=== PATIENT | female | born 1945 | race Caucasian/White ===

== ENCOUNTER 2016-03-28 17:09 | Inpatient (IN) | payer OTHER ==
[~2016-03-28] VITALS: Ht 160 cm; Wt 67.0 kg
[~2016-03-28 17:09] MED LIST: ALBUAER19 INH; ASPI81TA28 PO; ATOR-22 PO; CHOL100027 PO; CITA40TA4 PO; CLON0.5T3 PO; CLOP1TAB15 PO; DENO60SO SC; DICY10CA12 PO; FLUT50SP14 NAE; FOLI1TAB7 PO; FRRS300 PO; HYCUDL5 PO; HYOS1TAB SL; IPRASOL34 INH; LEVO1TAB33 PO; NTRGSL/4 UT; OXGN; OXYC-57 PO; OYST500T47 PO; PANC6000 PO; POLY335025 PO; POTA550T4 PO; PRED10TA PO; PRED20TA PO; RANI300T2 PO; SENN8.6T25 PO; SIME1CHW17 PO; TIOTCAP INH
[2016-03-28] MEDS ORDERED: METHYLPREDNISOLONE 125 MG VIAL IV STA (17:30)
[2016-03-28] MEDS ORDERED: ALBUT/IPRATROP 3MG/0.5MG NEB 3 ML VIAL INH ONE (17:30)
[2016-03-28 17:55] LABS: BASO % 0.2 %; BASO ABS # 0.01 K/uL (0-0.2); COMPLETE YES; HEMATOCRIT 35.1 % (37-47); IG% 0.5 %; LYMPH % 8.2 %; LYMPH ABS # 0.54 K/uL (1.2-3.4); MEAN CELL VOLUME 99.4 fL (80-100); MEAN CORPUSCULAR HEMOGLOBIN 33.4 pg (25-34); MEAN CORPUSCULAR HGB CONC 33.6 g/dl (32-36); MEAN PLATELET VOLUME 8.9 fL (7.4-10.4); MONO % 4.3 %; NEUT % 86.8 %; PLATELET COUNT 257 K/uL (130-400); RED BLOOD COUNT 3.53 M/uL (4.2-5.4); WHITE BLOOD COUNT 6.55 K/uL (4.8-10.8)
--- NOTE | 2016-03-28 18:15 | DIAGNOSTIC IMAGING REPORT ---
SINGLE VIEW CHEST CLINICAL HISTORY: Dyspnea. Blurry vision. FINDINGS: An\E\ AP, portable, upright chest radiograph is compared to study dated 12/31/2015. Correlation is made with chest CT dated 02/13/2011. The examination is degraded by portable technique and patient rotation. The heart is enlarged and there is atherosclerotic calcification of the thoracic aorta. The pulmonary vasculature is noncongested. There are calcified mediastinal and hilar lymph nodes. Emphysematous change and chronic interstitial thickening is similar to previous. There is mild focal eventration of the right hemidiaphragm. No focal airspace consolidation or pleural effusion is seen. There is no pneumothorax. The skeletal structures are osteopenic. There are healed left posterior rib fractures. IMPRESSION: Cardiomegaly, emphysema, and additional chronic changes as above. There is no acute cardiopulmonary abnormality. Electronically signed by: Flaquito Arana M.D. 03/28/2016 6:13 PM Dictated Date/Time: 03/28/2016 6:11 PM
[2016-03-28 18:17] LABS: BLOOD UREA NITROGEN 22 mg/dl (7-18); CALCIUM 7.9 mg/dl (8.5-10.1); CARBON DIOXIDE 26 mmol/L (21-32); CHLORIDE 106 mmol/L (98-107); CREATININE 0.96 mg/dl (0.60-1.20); GLUCOSE 106 mg/dl (70-99); POTASSIUM 4.2 mmol/L (3.5-5.1); SODIUM 141 mmol/L (136-145)
[2016-03-28] MEDS ORDERED: ALBU18002 INH (18:19)
[2016-03-28] MEDS ORDERED: UMEC1INH (18:19)
[2016-03-28] MEDS ORDERED: NYSS5 PO (18:19)
[2016-03-28] MEDS ORDERED: PRLSR20 PO (18:19)
[2016-03-28] MEDS ORDERED: HYDR5SYP11 PO (18:21)
[2016-03-28] MEDS ORDERED: IPRASOL4 INH (18:21)
[2016-03-28] MEDS ORDERED: TRMCR130WC TOP (18:21)
[2016-03-28] MEDS ORDERED: FLUT0.15 NAE (18:21)
[2016-03-28 18:22] LABS: CKMB/CK RATIO 2.6 (0-3.0)
[2016-03-28] MEDS ORDERED: TRAMADOL HCL 50 MG TAB PO PRN (19:00)
[2016-03-28] MEDS ORDERED: DOXYCYCLINE IV 100 MG in DEXTROSE 5% 100ML 100 ML IV STA (19:04)
[2016-03-28] MEDS ORDERED: ONDANSETRON INJ 2 MG/ML 2 ML VIAL IV PRN (20:15)
[2016-03-28] MEDS ORDERED: OYST500T47 PO (20:16)
[2016-03-28] MEDS ORDERED: OXGN (20:16)
--- NOTE | 2016-03-28 20:42 | History and Physical ---
History & Physical Date & Time of Service: Mar 28, 2016 at 20:22 Chief Complaint: Blurry Vision, Sob Primary Care Physician: Lena Quintanilla D.O. History of Present Illness Source: patient This is a 71 y/o female with PMHx of COPD on 3L O2 at home, Chronic Anemia, HTN , Dyslipidemia and other problems as outlined below who presents to the ED c/o persistent cough for over a week. Pt reports that over a week ago she developed a cough that is wet however she is having difficulty expectorating any sputum. Sxs are assoc with SOB and wheezing. Pt started COPD rescue kit (Levaquin and Prednisone taper) with no minimal relief. She has also been using her inhalers and nebulizers with only temporary relief. Pt currently lives at home alone with aides coming every day and her daughter lives next door. Pt denies fever/ chills, chest pain, abd pain, N/V, bowel or bladder issues, LE edema, calf pain , lightheadedness/dizziness. In the ED, vitals are stable. Pt is afebrile with no leukocytosis. HgB 11.8. CXR no consolidation. Pt received a DuoNeb treatment in the ED which gave her significant relief. She will be admitted for further evaluation and treatment. Past Medical/Surgical History Medical Problems: (1) Cerebrovascular disease Status: Chronic (2) Chronic obstructive lung disease Status: Chronic (3) Depression Status: Chronic (4) Essential hypertension Status: Chronic (5) Hyperlipidemia Status: Chronic (6) Iron deficiency anemia Status: Chronic (7) Osteoporosis Status: Chronic (8) Peripheral vascular disease Status: Chronic (9) Pseudocyst of pancreas Status: Chronic (10) Sleep apnea Status: Chronic (11) Tobacco user Status: Chronic (12) Vitamin D deficiency Status: Chronic Surgical Problems: (1) Status post appendectomy Status: Chronic (2) Status post cholecystectomy Status: Chronic (3) Status post ERCP Status: Chronic (4) Status post hernia repair Status: Chronic (5) Status post hysterectomy Status: Chronic Family History Diabetes mellitus FHx: gallbladder disease Heart disease Hypertension Kidney stones Lung disease Social History Smoking Status: Current Every Day Smoker (1.5 ppd x 62 years) Alcohol Use: none Drug Use: none Marital Status: Housing status: lives alone (daughter lives next door ) Occupational Status: retired Immunizations History of Influenza Vaccine: Yes Influenza Vaccine Date: Oct 27, 2010 History of Tetanus Vaccine?: Yes History of Pneumococcal: Yes Pneumococcal Date: Oct 27, 2010 History of Hepatitis B Vaccine: No Multi-Drug Resistant Organisms History of MDRO: No Allergies Coded Allergies: Ciprofloxacin (Verified Allergy, Mild, ITCHY, 03/28/16) Azithromycin (Verified Allergy, Unknown, unknown, 03/28/16) Influenza Vaccines (Unverified Allergy, Unknown, HIVES ON THE SITE, ) Nitrates, Organic (Verified Allergy, Unknown, UNSURE; BUT PATIENT TAKES NITROSTAT PER ADMIT MED REC., 03/28/16) Nitrofurantoin (Verified Allergy, Unknown, UNSURE, 03/28/16) Pneumococcal Polysaccharides (Verified Allergy, Unknown, unk, 03/28/16) Home Medications Scheduled Albuterol Sulfate (Proair Respiclick), 2 PUFFS INH QID Aspirin (Aspirin Ec), 81 MG PO QPM Atorvastatin (Lipitor), 20 MG PO QPM Cholecalciferol (Vitamin D 1000 Unit), 1,000 INTER.UNIT PO QPM Citalopram Hydrobromide (Citalopram Hydrobromide), 40 MG PO QPM Clopidogrel (Plavix), 75 MG PO QPM Denosumab (Prolia), 60 MG SC Q6 MONTHS Ferrous Sulfate (Ferrous Sulfate), 187.5 MG PO QPM Folic Acid (Folvite), 1 MG PO QPM Levofloxacin (Levaquin), 500 MG PO DAILY Nystatin (Nystatin), 5 ML PO QID Omeprazole (Prilosec), 20 MG PO DAILY Oxygen (Oxygen), 3 LITERS NA DAILY and HS Oyster Shell (Calcium), 500 MG PO BID Potassium Gluconate (Potassium Gluconate), 550 MG PO QPM Prednisone (Prednisone), 10 MG PO UD Scheduled PRN Clonazepam (Klonopin), 0.5 MG PO TID PRN for Anxiety Fluticasone Propionate (Nasal) (Flonase Allergy Relief), 2 SPRAY TAY DAILY PRN for PRN Hydrocodone W/ Homatropine (Hycodan 5/1.5MG 5 Ml), 5 ML PO Q4H PRN for PRN Hyoscyamine Sulfate (Hyoscyamine Sulfate Odt), 0.125 MG SL Q4 PRN for ABDOMINAL PAIN Ipratropium-Albuterol (Duoneb), 1 TREATMENT INH Q6 PRN for SOB/Wheezing Nitroglycerin (Nitrostat), 0.4 MG UT UD PRN for Chest Pain Miscellaneous Medications Umeclidinium [place] (Incruse Ellipta), Unknown Dose Review of Systems Constitutional: + fatigue, No chills, No fever, No sweats, No weakness Eyes: + worsening of vision (blurry vision ) ENT: No hearing loss Respiratory: + cough, + dyspnea at rest, + dyspnea on exertion, + shortness of breath, + sputum, + wheezing, No hemoptysis Cardiovascular: No chest pain, No claudication, No edema, No palpitations Abdomen: No GI bleeding, No constipation, No diarrhea, No nausea, No pain, No vomiting Musculoskeletal: No calf pain, No swelling Genitourinary - Female: No dysuria Neurologic: No weakness Psychiatric: No depression symptoms Endocrine: + fatigue Hematologic / Lymphatic: No abnormal bleeding/bruising Integumentary: No new/changing skin lesions Physical Exam Vital Signs Date Time Temp Pulse Resp B/P Pulse Ox O2 Delivery O2 Flow Rate FiO2 03/28/16 19:01 95 20 139/59 95 Nasal Cannula 3.0 03/28/16 17:22 95 Nasal Cannula 3.0 03/28/16 17:22 95 Nasal Cannula 3.0 03/28/16 17:20 75 03/28/16 17:19 37.2 77 20 171/82 88 Room Air General Appearance: WD/WN, no apparent distress, + pertinent finding (Pt is laying in bed with daughter at bedside ) Head: normocephalic, atraumatic Eyes: normal inspection ENT: hearing grossly normal Neck: supple Respiratory/Chest: chest non-tender, no respiratory distress, no accessory muscle use, + rhonchi, + wheezing Cardiovascular: regular rate, rhythm, no murmur Abdomen/GI: normal bowel sounds, non tender, soft Back: normal inspection Extremities/Musculoskelatal: normal inspection, no calf tenderness, + pedal edema (2+ bilat) Neurologic/Psych: alert, normal mood/affect, oriented x 3 Skin: normal color, warm/dry Diagnostics Laboratory Results Results Past 24 Hours Test 03/28/16 17:45 Range/Units White Blood Count 6.55 4.8-10.8 K/uL Red Blood Count 3.53 4.2-5.4 M/uL Hemoglobin 11.8 12.0-16.0 g/dL Hematocrit 35.1 37-47 % Mean Corpuscular Volume 99.4 80-100 fL Mean Corpuscular Hemoglobin 33.4 25-34 pg Mean Corpuscular Hemoglobin Concent 33.6 32-36 g/dl Platelet Count 257 130-400 K/uL Mean Platelet Volume 8.9 7.4-10.4 fL Neutrophils (%) (Auto) 86.8 % Lymphocytes (%) (Auto) 8.2 % Monocytes (%) (Auto) 4.3 % Eosinophils (%) (Auto) 0.0 % Basophils (%) (Auto) 0.2 % Neutrophils # (Auto) 5.69 1.4-6.5 K/uL Lymphocytes # (Auto) 0.54 1.2-3.4 K/uL Monocytes # (Auto) 0.28 0.11-0.59 K/uL Eosinophils # (Auto) 0.00 0-0.5 K/uL Basophils # (Auto) 0.01 0-0.2 K/uL RDW Standard Deviation 52.6 36.4-46.3 fL RDW Coefficient of Variation 14.5 11.5-14.5 % Immature Granulocyte % (Auto) 0.5 % Immature Granulocyte # (Auto) 0.03 0.00-0.02 K/uL Sodium Level 141 136-145 mmol/L Potassium Level 4.2 3.5-5.1 mmol/L Chloride Level 106 98-107 mmol/L Carbon Dioxide Level 26 21-32 mmol/L Anion Gap 9.0 3-11 mmol/L Blood Urea Nitrogen 22 7-18 mg/dl Creatinine 0.96 0.60-1.20 mg/dl Est Creatinine Clear Calc Drug Dose 49.2 ml/min Estimated GFR () 68.0 Estimated GFR (Non- 58.7 BUN/Creatinine Ratio 23.0 10-20 Random Glucose 106 70-99 mg/dl Calcium Level 7.9 8.5-10.1 mg/dl Total Creatine Kinase 53 26-192 U/L Creatine Kinase MB 1.4 0.5-3.6 ng/ml Creatine Kinase MB Ratio 2.6 0-3.0 Troponin I < 0.015 0-0.045 ng/ml Diagnostic Radiology CXR IMPRESSION: Cardiomegaly, emphysema, and additional chronic changes as above. There is no acute cardiopulmonary abnormality. EKG EKG: sinus rhythm at 77 bpm with PVCs and possible L atrial enlargement; when compared to EKG from 12/31/2015 PVCs are new and T wave abnormality is no longer present Impression Assessment and Plan COPD EXACERBATION pt presents with worsening SOB, cough and wheezing; h/o COPD on 3L O2 at home; failed outpt Levaquin and Pred taper -admit to med/surg -pt is afebrile with no leukocytosis; saturating well on 3L O2 -CXR +emphysema; no consolidation -start Solu-Medrol and duonebs -start Doxy -continue O2 supplementation -counseled pt regarding importance of smoking cessation; will provide NicoDerm patch -continue to monitor CHRONIC ANEMIA -HgB 11.8 (bl=9.5-11) -cont iron supplementation -pt currently denies active bleed HISTORY OF CVA/TIA -CVA 2001 -cont ASA/Plavix DEPRESSION/ANXIETY -stable -cont Celexa and Klonopin GERD -cont PPI HTN -stable -not on medication at home -monitor DYSLIPIDEMIA -cont statin DVT PROPHYLAXIS -subq Lovenox CODE STATUS -FULL CODE per discussion with patient. She wishes to be resuscitated in event of cardiopulmonary arrest but does not want prolonged life support. DISPO Pt seen in collaboration with Dr. Sheikh. Please see his addendum for further details. Thanks! ATTENDING ADDENDUM care coordinated with [facility] please refer to her notes for full details, I agree with her notes patient seen and examined, records reviewed by myself as well on exam, patient seen resting in bed, comfortable states breathing has improved since admission no other symptoms VS noted and reviewed oriented x 3 , not in distress, speaks in sentences with no effort nor accessory muscle use normal rate, regular rhythm, no murmurs (+) scattered expiratory wheeze bilaterally, moderate non distended, soft, nontender no bipedal edema, erythema, warmth no neuro deficits WBC 6.5 Crea 0.96 CXR: no infiltrates ASSESSMENT/PLAN> COPD EXACERBATION no improvement with Prednisone, Levaquin as outpatient still an active smoker - Solumedrol, Nebs, Doxy HISTORY OF CVA - continue Aspirin, Plavix other diagnoses and plan of care as per [facility]' notes Gerard Sheikh MD VTE Prophylaxis VTE Risk Assessment Done? Y/N: Yes Risk Level: Moderate
[2016-03-28 21:29] VITALS: BP 147/66; PULSE 84; TEMP 36.9; O2SAT 93; Ht 160 cm; Wt 67.0 kg
[2016-03-28 22:56] LABS: PROTHROMBIN TIME (PATIENT) 10.7 SECONDS (9.0-12.0)
[2016-03-28] MEDS: CALCIUM CARBONATE 1250MG TAB PO SCH (23:00)
[2016-03-28] MEDS: ATORVASTATIN 20 MG TAB PO SCH (23:00)
[2016-03-28] MEDS: CHOLECALCIFEROL 1000 INTER.UNIT TAB PO SCH (23:01)
[2016-03-28] MEDS: CLONAZEPAM 0.5 MG TAB PO PRN (23:02)
[2016-03-28] MEDS: FERROUS SULFATE 325 MG TAB PO SCH (23:02)
[2016-03-28] MEDS: ASPIRIN 81 MG ECTAB PO SCH (23:02)
[2016-03-28] MEDS: CLOPIDOGREL BISULFATE 75 MG TAB PO SCH (23:03)
[2016-03-28] MEDS: ACETAMINOPHEN 325 MG TAB PO PRN (23:03)
[2016-03-28] MEDS: CITALOPRAM 40 MG TAB PO SCH (23:03)
[2016-03-28 23:12] VITALS: PULSE 68; O2SAT 95
[2016-03-28] MEDS: ALBUT/IPRATROP 3MG/0.5MG NEB 3 ML VIAL INH SCH (23:12)
[2016-03-29] VITALS (13 sets, daily range): BP systolic 122–159; BP diastolic 49–76; PULSE 65–88; TEMP 36.7–36.9; O2SAT 91–98
--- NOTE | 2016-03-29 00:27 | EMERGENCY ROOM VISIT NOTE ---
History Report prepared by Juwan: Miguelito Herrera Under the Supervision of: Dr. Anderson Grey M.D. First contact with patient: 17:24 Chief Complaint: ILLNESS Stated Complaint: BLURRY VISION, SOB History of Present Illness The patient is a 71 year old female who presents to the Emergency Room with complaints of constant shortness of breath beginning one week prior to arrival. She currently rates her discomfort as a 6/10 in severity. The patient associates a cough, intermittent chest pain, dizziness, and intermittent blurry vision with today's symptoms. She states her vision began to become out of focus 2-3 days ago. The patient notes she is usually on 3L of oxygen at home. She states she has been on Prednisone and antibiotics from her PCP for the past week. The patient notes she is a smoker. She states she has inhalers and nebulizers at home. The patient denies recent syncopal episodes. 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 Review of Systems See HPI for pertinent positives & negatives. A total of 10 systems reviewed and were otherwise negative. Past Medical & Surgical Medical Problems: (1) Cerebrovascular disease (2) Chronic obstructive lung disease (3) Depression (4) Essential hypertension (5) Hyperlipidemia (6) Iron deficiency anemia (7) Osteoporosis (8) Peripheral vascular disease (9) Pseudocyst of pancreas (10) Sleep apnea (11) Tobacco user (12) Vitamin D deficiency Surgical Problems: (1) Status post appendectomy (2) Status post cholecystectomy (3) Status post ERCP (4) Status post hernia repair (5) Status post hysterectomy Family History Diabetes mellitus FHx: gallbladder disease Heart disease Hypertension Kidney stones Lung disease Social History Smoking Status: Current Every Day Smoker Alcohol Use: none Drug Use: none Marital Status: single, Housing Status: lives with family Occupation Status: retired Current/Historical Medications Scheduled Albuterol Sulfate (Proair Respiclick), 2 PUFFS INH QID Aspirin (Aspirin Ec), 81 MG PO QPM Atorvastatin (Lipitor), 20 MG PO QPM Cholecalciferol (Vitamin D 1000 Unit), 1,000 INTER.UNIT PO QPM Citalopram Hydrobromide (Citalopram Hydrobromide), 40 MG PO QPM Clopidogrel (Plavix), 75 MG PO QPM Denosumab (Prolia), 60 MG SC Q6 MONTHS Ferrous Sulfate (Ferrous Sulfate), 187.5 MG PO QPM Folic Acid (Folvite), 1 MG PO QPM Levofloxacin (Levaquin), 500 MG PO DAILY Nystatin (Nystatin), 5 ML PO QID Omeprazole (Prilosec), 20 MG PO DAILY Oxygen (Oxygen), 3 LITERS NA DAILY and HS Oyster Shell (Calcium), 500 MG PO BID Potassium Gluconate (Potassium Gluconate), 550 MG PO QPM Prednisone (Prednisone), 10 MG PO UD Scheduled PRN Clonazepam (Klonopin), 0.5 MG PO TID PRN for Anxiety Fluticasone Propionate (Nasal) (Flonase Allergy Relief), 2 SPRAY TAY DAILY PRN for PRN Hydrocodone W/ Homatropine (Hycodan 5/1.5MG 5 Ml), 5 ML PO Q4H PRN for PRN Hyoscyamine Sulfate (Hyoscyamine Sulfate Odt), 0.125 MG SL Q4 PRN for ABDOMINAL PAIN Ipratropium-Albuterol (Duoneb), 1 TREATMENT INH Q6 PRN for SOB/Wheezing Nitroglycerin (Nitrostat), 0.4 MG UT UD PRN for Chest Pain Miscellaneous Medications Umeclidinium [place] (Incruse Ellipta), Unknown Dose Allergies Coded Allergies: Ciprofloxacin (Verified Allergy, Mild, ITCHY, 03/28/16) Azithromycin (Verified Allergy, Unknown, unknown, 03/28/16) Influenza Vaccines (Unverified Allergy, Unknown, HIVES ON THE SITE, ) Nitrates, Organic (Verified Allergy, Unknown, UNSURE; BUT PATIENT TAKES NITROSTAT PER ADMIT MED REC., 03/28/16) Nitrofurantoin (Verified Allergy, Unknown, UNSURE, 03/28/16) Pneumococcal Polysaccharides (Verified Allergy, Unknown, unk, 03/28/16) Physical Exam Vital Signs Date Time Temp Pulse Resp B/P Pulse Ox O2 Delivery O2 Flow Rate FiO2 03/28/16 19:01 95 20 139/59 95 Nasal Cannula 3.0 03/28/16 17:22 95 Nasal Cannula 3.0 03/28/16 17:22 95 Nasal Cannula 3.0 03/28/16 17:20 75 03/28/16 17:19 37.2 77 20 171/82 88 Room Air Physical Exam GENERAL: Patient is chronically unwell appearing and smells heavily of tobacco smoke. HEENT: No acute trauma, normocephalic atraumatic, mucous membranes moist, no nasal congestion, no scleral icterus. NECK: No stridor, no adenopathy, no meningismus, trachea is midline. LUNGS: Dyspneic. Diffuse crackles and wheezing. Junky cough. HEART: Regular rate and rhythm. No murmurs, rubs, gallops appreciated. ABDOMEN: Soft, nontender, bowel sounds positive, no masses appreciated, no peritonitis. BACK: No midline tenderness, no CVA tenderness EXTREMITIES: Normal motion all extremities, no cyanosis, no edema. NEUROLOGIC: Alert and oriented, no acute motor or sensory deficits, no focal weakness, cranial nerves grossly intact. SKIN: No rash, no jaundice, no diaphoresis. Medical Decision & Procedures ER Provider Diagnostic Interpretation: X ray results are stated below per my interpretation and the radiologist's interpretation. SINGLE VIEW CHEST CLINICAL HISTORY: Dyspnea. Blurry vision. FINDINGS: An\E\ AP, portable, upright chest radiograph is compared to study dated 12/31/2015. Correlation is made with chest CT dated 02/13/2011. The examination is degraded by portable technique and patient rotation. The heart is enlarged and there is atherosclerotic calcification of the thoracic aorta. The pulmonary vasculature is noncongested. There are calcified mediastinal and hilar lymph nodes. Emphysematous change and chronic interstitial thickening is similar to previous. There is mild focal eventration of the right hemidiaphragm. No focal airspace consolidation or pleural effusion is seen. There is no pneumothorax. The skeletal structures are osteopenic. There are healed left posterior rib fractures. IMPRESSION: Cardiomegaly, emphysema, and additional chronic changes as above. There is no acute cardiopulmonary abnormality. Electronically signed by: Flaquito Arana M.D. 03/28/2016 6:13 PM Laboratory Results 03/28/16 17:45 Red Blood Count 3.53, Mean Corpuscular Volume 99.4, Mean Corpuscular Hemoglobin 33.4, Mean Corpuscular Hemoglobin Concent 33.6, Mean Platelet Volume 8.9, Neutrophils (%) (Auto) 86.8, Lymphocytes (%) (Auto) 8.2, Monocytes (%) (Auto) 4.3, Eosinophils (%) (Auto) 0.0, Basophils (%) (Auto) 0.2, Neutrophils # (Auto) 5.69, Lymphocytes # (Auto) 0.54, Monocytes # (Auto) 0.28, Eosinophils # (Auto) 0.00, Basophils # (Auto) 0.01 03/28/16 17:45 Test 03/28/16 17:45 White Blood Count 6.55 K/uL (4.8-10.8) Red Blood Count 3.53 M/uL (4.2-5.4) Hemoglobin 11.8 g/dL (12.0-16.0) Hematocrit 35.1 % (37-47) Mean Corpuscular Volume 99.4 fL (80-100) Mean Corpuscular Hemoglobin 33.4 pg (25-34) Mean Corpuscular Hemoglobin Concent 33.6 g/dl (32-36) Platelet Count 257 K/uL (130-400) Mean Platelet Volume 8.9 fL (7.4-10.4) Neutrophils (%) (Auto) 86.8 % Lymphocytes (%) (Auto) 8.2 % Monocytes (%) (Auto) 4.3 % Eosinophils (%) (Auto) 0.0 % Basophils (%) (Auto) 0.2 % Neutrophils # (Auto) 5.69 K/uL (1.4-6.5) Lymphocytes # (Auto) 0.54 K/uL (1.2-3.4) Monocytes # (Auto) 0.28 K/uL (0.11-0.59) Eosinophils # (Auto) 0.00 K/uL (0-0.5) Basophils # (Auto) 0.01 K/uL (0-0.2) RDW Standard Deviation 52.6 fL (36.4-46.3) RDW Coefficient of Variation 14.5 % (11.5-14.5) Immature Granulocyte % (Auto) 0.5 % Immature Granulocyte # (Auto) 0.03 K/uL (0.00-0.02) Prothrombin Time 10.7 SECONDS (9.0-12.0) Prothromb Time International Ratio 1.0 (0.9-1.1) Anion Gap 9.0 mmol/L (3-11) Est Creatinine Clear Calc Drug Dose 49.2 ml/min Estimated GFR () 68.0 Estimated GFR (Non- 58.7 BUN/Creatinine Ratio 23.0 (10-20) Calcium Level 7.9 mg/dl (8.5-10.1) Total Creatine Kinase 53 U/L (26-192) Creatine Kinase MB 1.4 ng/ml (0.5-3.6) Creatine Kinase MB Ratio 2.6 (0-3.0) Troponin I < 0.015 ng/ml (0-0.045) Laboratory results as reviewed by me. Medications Administered Medications (Trade) Dose Ordered Sig/[place] Route Start Time Stop Time Status Last Admin Dose Admin Methylprednisolone Sodium Succinate 80 mg 80 mg NOW STAT IV 03/28/16 17:30 03/28/16 17:32 DC 03/28/16 17:30 80 MG Doxycycline Hyclate/Dextrose (Vibramycin IV/ D5 100ml) 110 ml @ 50 mls/hr NOW STAT IV 03/28/16 19:04 03/28/16 21:15 DC 03/28/16 19:16 50 MLS/HR ECG Indication: SOB/dyspnea Rate (beats per minute): 77 Rhythm: sinus rhythm Findings: no acute ischemic change, no ectopy ED Course 1725: The patient was evaluated in room B12B. A complete history and physical exam was performed. 1730: Ordered Solu-Medrol IV 80 mg IV, Duoneb 12 ml INH. 1845: I spoke to Rehana Issa (Hospitalist) about the patient's case , and he will follow the patient for further evaluation. Medical Decision Differential: Infectious, Reactive Airway Disease, Pneumonia, Pneumothorax, COPD , CHF, ACS, Pulmonary Embolism, MSK, GI, Dissection, amongst other etiologies entertained. 71 yr old female with bronchitis over the last week which has failed outpatient abx and steroids. She is mildly hypoxic on her standard O2 with very poor lung sounds. She is otherwise in no significant distress. Suspect the dizziness she had earlier was hypoxia/illness related and given no headache no neuro deficits and no current symptoms will hold on any current head imaging. She otherwise labs look ok without evidence of ischemia. She has long history of COPD and continues to smoke thus I feel that PE is unlikely and that CT would not be necessary. Will start on empiric abx due to COPD flare in heavy smoker and use doxy given allergies though no evidence of PNA nor acute bacterial infection. Consults Time Called: 1831 Consulting Physician: Rehana Issa (Hospitalist) Returned Call: [phone] I spoke to Rehana Issa (Hospitalist) about the patient's case, and he will follow the patient for further evaluation. Impression Primary Impression: COPD with acute bronchitis Additional Impression: Failure of outpatient treatment Scribe Attestation The scribe's documentation has been prepared under my direction and personally reviewed by me in its entirety. I confirm that the note above accurately reflects all work, treatment, procedures, and medical decision making performed by me. Departure Information Dispostion Being Evaluated By Hospitalist (Rehana Issa (Hospitalist) ) Referrals Lena Quintanilla D.O. (PCP) Problem Qualifiers
[2016-03-29] MEDS: METHYLPREDNISOLONE IV 60 MG in SYRINGE 0 ML IV SCH ×5 (00:41→23:17)
[2016-03-29] MEDS: ALBUT/IPRATROP 3MG/0.5MG NEB 3 ML VIAL INH SCH ×7 (03:17→23:12)
[2016-03-29 07:11] LABS: HEMATOCRIT 36.2 % (37-47); MEAN CELL VOLUME 98.6 fL (80-100); MEAN CORPUSCULAR HEMOGLOBIN 32.2 pg (25-34); MEAN CORPUSCULAR HGB CONC 32.6 g/dl (32-36); MEAN PLATELET VOLUME 9.4 fL (7.4-10.4); PLATELET COUNT 292 K/uL (130-400); RED BLOOD COUNT 3.67 M/uL (4.2-5.4); WHITE BLOOD COUNT 10.72 K/uL (4.8-10.8)
--- NOTE | 2016-03-29 07:18 | Clinical Documentation Query ---
JUAN ANTONIO Myers : CLINICAL DOCUMENTATION QUERY Patient is a 71 year old female admitted for COPD exacerbation. Documentation supports the chronic continuous use of 3 L/min of supplemental oxygen in your patient. Risk factors include age, COPD, smoking history. Please clarify as clinically appropriate as this directly impacts DRG assignment. Thank you. In your clinical opinion is this patient being managed for: ( X ) Chronic hypoxic respiratory failure ( ) Other explanation of clinical findings (Please Explain) ( ) Unable to determine (Please Define) ( ) Need to Discuss ( ) Not Agree The medical record reflects the following clinical findings, treatment, and risk factors. Clinical Indicators: As above Treatment: Provision of ongoing supplemental oxygen. Risk Factors: Age, smoking, COPD Please clarify and document your clinical opinion in the progress notes and discharge summary. Terms such as "probable", "suspected", "likely", "questionable", "possible", or "still to be ruled out" are acceptable. IF IN AGREEMENT, YOU MUST DOCUMENT ABOVE DIAGNOSTIC STATEMENT IN DAILY PROGRESS NOTES AND DISCHARGE SUMMARY. This document is not part of the patient's record. Thank You, Augustus Raza, RN [phone]
[2016-03-29 07:54] LABS: CREATININE 0.94 mg/dl (0.60-1.20); POTASSIUM 4.2 mmol/L (3.5-5.1)
[2016-03-29] MEDS: DOXYCYCLINE IV 100 MG in DEXTROSE 5% 100ML 100 ML IV SCH ×2 (08:27→20:03)
[2016-03-29] MEDS: PANTOprazole SOD 40 MG TAB PO SCH (08:35)
[2016-03-29] MEDS: CALCIUM CARBONATE 1250MG TAB PO SCH ×2 (08:35→21:00)
[2016-03-29] MEDS: NICOTINE 21 MG/24 HR TDSY TD SCH (09:35)
[2016-03-29] MEDS: ENOXAPARIN 40 MG/0.4 ML SYR SQ SCH (09:35)
[2016-03-29] MEDS: FLUTICASONE PROPIONATE NA SPR 16 GM BTL NAE PRN (12:23)
[2016-03-29] MEDS: CLONAZEPAM 0.5 MG TAB PO PRN ×2 (15:34→23:17)
--- NOTE | 2016-03-29 17:29 | Progress Note ---
Internal Med Progress Note Date of Service: Mar 29, 2016. Provider Documentation: SUBJECTIVE: Patient is seen and examined at bedside. Patient states her Cough and SOB is improving. Denies any chest pain, nausea, palpitations. OBJECTIVE: Vital Signs-as noted below Physical Exam: General Appearance:Fragile, chronic aill appearing, no apparent distress Head: normocephalic, Atraumatic Eyes: normal inspection, EOMI, PERRLA Neck: supple, Trachea midline Respiratory/Chest: Decreased breath sounds, b/l expiratory wheezes. No accessory muscle use Cardiovascular: S1, S2, No murmur Abdomen/GI:Soft, Non tender, Bowel sounds present Extremities/Musculoskelatal:normal inspection, Trace pedal edema Neurologic/Psych:AAOX3, grossly no focal neurological deficits Skin: normal color, warm Lab data as noted below. ASSESSMENT & PLAN: Patient is a 71 yr old female with PMHx of COPD on 3L O2 at home, Chronic Anemia , HTN, Dyslipidemia presents with persistent cough for over a week. Also had associated SOB and wheezing. Pt tried COPD rescue kit (Levaquin and Prednisone taper) with no relief. CXR showed no consolidation. ACUTE ON CHRONIC COPD EXACERBATION Currently saturating well on 3L O2- her baseline CXR: no consolidation Continue glucocorticoids and bronchodilators Will start tapering steroids tomorrow Continue Doxycycline continue O2 support Patient is a current smoker: Counselled to quit smoking Follow up sputum cultures CHRONIC ANEMIA HgB Stable continue iron supplementation HISTORY OF CVA/TIA H/O CVA 2001 continue ASA/Plavix DEPRESSION/ANXIETY stable continue Celexa and Klonopin GERD continue PPI HTN stable Continue to monitor DYSLIPIDEMIA continue statin DVT PROPHYLAXIS SQ Lovenox CODE STATUS FULL CODE Vital Signs: Date Time Temp Pulse Resp B/P Pulse Ox O2 Delivery O2 Flow Rate FiO2 03/29/16 16:00 91 Nasal Cannula 3.0 03/29/16 15:46 36.7 88 19 122/61 91 Nasal Cannula 2.0 03/29/16 14:57 88 18 93 Nasal Cannula 3.0 03/29/16 13:39 73 18 98 Nasal Cannula 3.0 03/29/16 08:07 94 Nasal Cannula 2.0 03/29/16 07:50 36.7 85 16 130/76 94 Nasal Cannula 2.0 03/29/16 07:41 Nasal Cannula 3.0 03/29/16 06:55 82 18 95 Nasal Cannula 3.0 03/29/16 03:17 65 18 94 Nasal Cannula 3.0 03/29/16 00:04 36.8 76 18 123/49 95 Nasal Cannula 3.0 03/29/16 00:00 95 Nasal Cannula 3.0 03/28/16 23:12 68 18 95 3.0 03/28/16 21:29 36.9 84 20 147/66 93 Nasal Cannula 3.0 03/28/16 20:36 92 17 134/63 92 Nasal Cannula 3.0 03/28/16 19:01 95 20 139/59 95 Nasal Cannula 3.0 03/28/16 17:22 95 Nasal Cannula 3.0 03/28/16 17:22 95 Nasal Cannula 3.0 03/28/16 17:20 75 03/28/16 17:19 37.2 77 20 171/82 88 Room Air Lab Results: Results Past 24 Hours Test 03/28/16 17:45 03/29/16 06:39 Range/Units White Blood Count 6.55 10.72 4.8-10.8 K/uL Red Blood Count 3.53 3.67 4.2-5.4 M/uL Hemoglobin 11.8 11.8 12.0-16.0 g/dL Hematocrit 35.1 36.2 37-47 % Mean Corpuscular Volume 99.4 98.6 80-100 fL Mean Corpuscular Hemoglobin 33.4 32.2 25-34 pg Mean Corpuscular Hemoglobin Concent 33.6 32.6 32-36 g/dl Platelet Count 257 292 130-400 K/uL Mean Platelet Volume 8.9 9.4 7.4-10.4 fL Neutrophils (%) (Auto) 86.8 % Lymphocytes (%) (Auto) 8.2 % Monocytes (%) (Auto) 4.3 % Eosinophils (%) (Auto) 0.0 % Basophils (%) (Auto) 0.2 % Neutrophils # (Auto) 5.69 1.4-6.5 K/uL Lymphocytes # (Auto) 0.54 1.2-3.4 K/uL Monocytes # (Auto) 0.28 0.11-0.59 K/uL Eosinophils # (Auto) 0.00 0-0.5 K/uL Basophils # (Auto) 0.01 0-0.2 K/uL RDW Standard Deviation 52.6 53.0 36.4-46.3 fL RDW Coefficient of Variation 14.5 14.7 11.5-14.5 % Immature Granulocyte % (Auto) 0.5 % Immature Granulocyte # (Auto) 0.03 0.00-0.02 K/uL Prothrombin Time 10.7 9.0-12.0 SECONDS Prothromb Time International Ratio 1.0 0.9-1.1 Sodium Level 141 142 136-145 mmol/L Potassium Level 4.2 4.2 3.5-5.1 mmol/L Chloride Level 106 106 98-107 mmol/L Carbon Dioxide Level 26 26 21-32 mmol/L Anion Gap 9.0 10.0 3-11 mmol/L Blood Urea Nitrogen 22 24 7-18 mg/dl Creatinine 0.96 0.94 0.60-1.20 mg/dl Est Creatinine Clear Calc Drug Dose 49.2 49.0 ml/min Estimated GFR () 68.0 69.8 Estimated GFR (Non- 58.7 60.2 BUN/Creatinine Ratio 23.0 25.0 10-20 Random Glucose 106 119 70-99 mg/dl Calcium Level 7.9 8.0 8.5-10.1 mg/dl Total Creatine Kinase 53 26-192 U/L Creatine Kinase MB 1.4 0.5-3.6 ng/ml Creatine Kinase MB Ratio 2.6 0-3.0 Troponin I < 0.015 0-0.045 ng/ml Microbiology Results 03/29/16 Gram Stain, Received Pending 03/29/16 Sputum Culture, Received Pending
[2016-03-29] MEDS: ACETAMINOPHEN 325 MG TAB PO PRN (17:48)
[2016-03-29] MEDS: FERROUS SULFATE 325 MG TAB PO SCH (21:00)
[2016-03-29] MEDS: SODIUM CHLORIDE 0.65% NA SOLN 45 ML (OCEAN) PRN (21:05)
[2016-03-29] MEDS: ASPIRIN 81 MG ECTAB PO SCH (21:10)
[2016-03-29] MEDS: CITALOPRAM 40 MG TAB PO SCH (21:10)
[2016-03-29] MEDS: ATORVASTATIN 20 MG TAB PO SCH (21:12)
[2016-03-29] MEDS: CHOLECALCIFEROL 1000 INTER.UNIT TAB PO SCH (21:12)
[2016-03-29] MEDS: CLOPIDOGREL BISULFATE 75 MG TAB PO SCH (21:12)
[2016-03-30] VITALS (12 sets, daily range): BP systolic 75–164; BP diastolic 42–76; PULSE 67–89; TEMP 36.4–36.9; O2SAT 92–96
[2016-03-30] MEDS: ALBUT/IPRATROP 3MG/0.5MG NEB 3 ML VIAL INH SCH ×6 (03:38→23:26)
[2016-03-30] MEDS: ACETAMINOPHEN 325 MG TAB PO PRN (06:06)
[2016-03-30] MEDS: SODIUM CHLORIDE 0.65% NA SOLN 45 ML (OCEAN) PRN (06:06)
[2016-03-30] MEDS: METHYLPREDNISOLONE IV 60 MG in SYRINGE 0 ML IV SCH ×2 (06:06→11:19)
[2016-03-30] MEDS: CLONAZEPAM 0.5 MG TAB PO PRN ×2 (06:08→20:51)
[2016-03-30] MEDS: DOXYCYCLINE IV 100 MG in DEXTROSE 5% 100ML 100 ML IV SCH ×2 (07:53→20:36)
[2016-03-30] MEDS: PANTOprazole SOD 40 MG TAB PO SCH (07:59)
[2016-03-30] MEDS: CALCIUM CARBONATE 1250MG TAB PO SCH ×2 (08:00→20:37)
[2016-03-30] MEDS: ENOXAPARIN 40 MG/0.4 ML SYR SQ SCH (08:00)
[2016-03-30] MEDS: NICOTINE 21 MG/24 HR TDSY TD SCH (08:00)
[2016-03-30] MEDS: FLUTICASONE PROPIONATE NA SPR 16 GM BTL NAE PRN (08:12)
[2016-03-30 08:35] LABS: BUN/CREATININE RATIO 32.6 (10-20); CALCIUM 7.9 mg/dl (8.5-10.1); CREATININE 0.87 mg/dl (0.60-1.20); POTASSIUM 3.7 mmol/L (3.5-5.1)
[2016-03-30] MEDS: FAMOTIDINE IV INJ 20 MG in DEXTROSE 5% 100ML 100 ML IV SCH (11:19)
--- NOTE | 2016-03-30 12:53 | Progress Note ---
Internal Med Progress Note Date of Service: Mar 30, 2016. Provider Documentation: SUBJECTIVE: Patient is seen and examined at bedside. States being SOB this morning and also have acid reflux like symptoms. Cough is improving. Denies any chest pain, nausea, palpitations. OBJECTIVE: Vital Signs-as noted below Physical Exam: General Appearance:Fragile, chronic aill appearing, no apparent distress Head: normocephalic, Atraumatic Eyes: normal inspection, EOMI, PERRLA Neck: supple, Trachea midline Respiratory/Chest: Decreased breath sounds, b/l mild expiratory wheezes. No accessory muscle use Cardiovascular: S1, S2, No murmur Abdomen/GI:Soft, Non tender, Bowel sounds present Extremities/Musculoskelatal:normal inspection, Trace pedal edema Neurologic/Psych:AAOX3, grossly no focal neurological deficits Skin: normal color, warm Lab data as noted below. ASSESSMENT & PLAN: Patient is a 71 yr old female with PMHx of COPD on 3L O2 at home, Chronic Anemia , HTN, Dyslipidemia presents with persistent cough for over a week. Also had associated SOB and wheezing. Pt tried COPD rescue kit (Levaquin and Prednisone taper) with no relief. CXR showed no consolidation. ACUTE ON CHRONIC COPD EXACERBATION Currently saturating well on 3L O2- her baseline CXR: no consolidation Continue glucocorticoids and bronchodilators Continue to taper steroids Continue Doxycycline continue O2 support Patient is a current smoker: Counselled to quit smoking Follow up sputum cultures CHRONIC ANEMIA HgB Stable continue iron supplementation HISTORY OF CVA/TIA H/O CVA 2001 continue ASA/Plavix DEPRESSION/ANXIETY stable continue Celexa and Klonopin GERD continue PPI HTN stable Continue to monitor DYSLIPIDEMIA continue statin DVT PROPHYLAXIS SQ Lovenox CODE STATUS FULL CODE DISPOSITION: Plan to DC home in next 48 hours if stable Vital Signs: Date Time Temp Pulse Resp B/P Pulse Ox O2 Delivery O2 Flow Rate FiO2 03/30/16 11:15 67 18 93 Room Air 03/30/16 08:00 95 Nasal Cannula 3.0 03/30/16 07:06 36.6 85 20 93/52 95 Nasal Cannula 3.0 03/30/16 06:13 86 18 96 Nasal Cannula 3.0 03/30/16 00:00 Nasal Cannula 3.0 03/29/16 23:25 36.9 86 19 159/71 93 Nasal Cannula 3.0 03/29/16 23:12 88 18 95 Nasal Cannula 3.0 03/29/16 19:26 65 18 96 Nasal Cannula 3.0 03/29/16 16:00 91 Nasal Cannula 3.0 03/29/16 15:46 36.7 88 19 122/61 91 Nasal Cannula 2.0 03/29/16 14:57 88 18 93 Nasal Cannula 3.0 03/29/16 13:39 73 18 98 Nasal Cannula 3.0 Lab Results: Results Past 24 Hours Test 03/30/16 07:31 Range/Units Sodium Level 143 136-145 mmol/L Potassium Level 3.7 3.5-5.1 mmol/L Chloride Level 108 98-107 mmol/L Carbon Dioxide Level 25 21-32 mmol/L Anion Gap 10.0 3-11 mmol/L Blood Urea Nitrogen 28 7-18 mg/dl Creatinine 0.87 0.60-1.20 mg/dl Est Creatinine Clear Calc Drug Dose 52.9 ml/min Estimated GFR () 76.6 Estimated GFR (Non- 66.1 BUN/Creatinine Ratio 32.6 10-20 Random Glucose 125 70-99 mg/dl Calcium Level 7.9 8.5-10.1 mg/dl Microbiology Results 03/29/16 Gram Stain - Final, Resulted 03/29/16 Sputum Culture, Resulted Pending
[2016-03-30] MEDS: METHYLPREDNISOLONE IV 40 MG in SYRINGE 0 ML IV SCH (20:22)
[2016-03-30] MEDS: CHOLECALCIFEROL 1000 INTER.UNIT TAB PO SCH (20:23)
[2016-03-30] MEDS: CITALOPRAM 40 MG TAB PO SCH (20:38)
[2016-03-30] MEDS: ASPIRIN 81 MG ECTAB PO SCH (20:38)
[2016-03-30] MEDS: CLOPIDOGREL BISULFATE 75 MG TAB PO SCH (20:39)
[2016-03-30] MEDS: FERROUS SULFATE 325 MG TAB PO SCH (20:39)
[2016-03-30] MEDS: ATORVASTATIN 20 MG TAB PO SCH (20:40)
[2016-03-31] VITALS (11 sets, daily range): BP systolic 98–143; BP diastolic 67–76; PULSE 75–84; TEMP 36.6; O2SAT 95–98
[2016-03-31] MEDS: FAMOTIDINE IV INJ 20 MG in DEXTROSE 5% 100ML 100 ML IV SCH ×2 (00:21→12:07)
[2016-03-31] MEDS: ALBUT/IPRATROP 3MG/0.5MG NEB 3 ML VIAL INH SCH ×6 (03:31→23:06)
[2016-03-31 07:04] LABS: BUN/CREATININE RATIO 42.5 (10-20); CALCIUM 7.8 mg/dl (8.5-10.1); CREATININE 0.84 mg/dl (0.60-1.20); POTASSIUM 3.9 mmol/L (3.5-5.1)
[2016-03-31] MEDS: DOXYCYCLINE IV 100 MG in DEXTROSE 5% 100ML 100 ML IV SCH ×2 (08:02→20:21)
[2016-03-31] MEDS: NICOTINE 21 MG/24 HR TDSY TD SCH (08:04)
[2016-03-31] MEDS: ENOXAPARIN 40 MG/0.4 ML SYR SQ SCH (08:47)
[2016-03-31] MEDS: CALCIUM CARBONATE 1250MG TAB PO SCH ×4 (08:48→21:25)
[2016-03-31] MEDS: METHYLPREDNISOLONE IV 40 MG in SYRINGE 0 ML IV SCH (08:48)
[2016-03-31] MEDS: PANTOprazole SOD 40 MG TAB PO SCH (08:48)
[2016-03-31] MEDS: FLUTICASONE PROPIONATE NA SPR 16 GM BTL NAE PRN (08:51)
--- NOTE | 2016-03-31 10:50 | Progress Note ---
Internal Med Progress Note Date of Service: Mar 31, 2016. Provider Documentation: SUBJECTIVE: Patient is seen and examined at bedside. States having SOB on exertion. Cough improving. Denies any chest pain, nausea, abd pain, palpitations. OBJECTIVE: Vital Signs-as noted below Physical Exam: General Appearance:Fragile, chronic aill appearing, no apparent distress Head: normocephalic, Atraumatic Eyes: normal inspection, EOMI, PERRLA Neck: supple, Trachea midline Respiratory/Chest: Decreased breath sounds, b/l mild expiratory wheezes. No accessory muscle use Cardiovascular: S1, S2, No murmur Abdomen/GI:Soft, Non tender, Bowel sounds present Extremities/Musculoskelatal:normal inspection, Trace pedal edema Neurologic/Psych:AAOX3, grossly no focal neurological deficits Skin: normal color, warm Lab data as noted below. ASSESSMENT & PLAN: Patient is a 71 yr old female with PMHx of COPD on 3L O2 at home, Chronic Anemia , HTN, Dyslipidemia presents with persistent cough for over a week. Also had associated SOB and wheezing. Pt tried COPD rescue kit (Levaquin and Prednisone taper) with no relief. CXR showed no consolidation. ACUTE ON CHRONIC COPD EXACERBATION Currently saturating well on 3L O2- her baseline CXR: no consolidation Continue glucocorticoids and bronchodilators Continue to taper steroids Continue Doxycycline continue O2 support-Taper off oxygen to keep sats above 92% Patient is a current smoker: Counselled to quit smoking Sputum cultures: moderate normal gabby, FU final cultures CHRONIC ANEMIA HgB Stable continue iron supplementation HISTORY OF CVA/TIA H/O CVA 2001 continue ASA/Plavix DEPRESSION/ANXIETY stable continue Celexa and Klonopin GERD continue PPI HTN stable Continue to monitor DYSLIPIDEMIA continue statin DVT PROPHYLAXIS SQ Lovenox CODE STATUS FULL CODE DISPOSITION: Plan to DC home tomorrow if stable Vital Signs: Date Time Temp Pulse Resp B/P Pulse Ox O2 Delivery O2 Flow Rate FiO2 03/31/16 09:56 36.6 83 16 96 3.0 03/31/16 08:07 96 Nasal Cannula 3.0 03/31/16 07:52 36.6 83 16 128/76 96 Nasal Cannula 3.0 03/31/16 07:31 79 18 97 Nasal Cannula 3.0 03/31/16 07:28 36.6 81 20 98/67 97 3.0 03/31/16 03:31 84 18 95 Nasal Cannula 3.0 03/31/16 00:05 Room Air 03/30/16 23:58 36.4 77 18 131/67 94 Nasal Cannula 3.0 85/51 03/30/16 23:26 76 18 96 Nasal Cannula 3.0 03/30/16 20:05 92 Room Air 03/30/16 19:30 36.9 86 16 75/42 92 Room Air 164/67 03/30/16 19:21 84 18 95 Nasal Cannula 3.0 03/30/16 16:10 72 18 94 Room Air 03/30/16 16:00 93 Nasal Cannula 3.0 03/30/16 15:07 36.9 89 18 112/76 93 Nasal Cannula 3.0 03/30/16 11:15 67 18 93 Room Air Lab Results: Results Past 24 Hours Test 03/31/16 06:13 Range/Units Sodium Level 144 136-145 mmol/L Potassium Level 3.9 3.5-5.1 mmol/L Chloride Level 109 98-107 mmol/L Carbon Dioxide Level 26 21-32 mmol/L Anion Gap 9.0 3-11 mmol/L Blood Urea Nitrogen 36 7-18 mg/dl Creatinine 0.84 0.60-1.20 mg/dl Est Creatinine Clear Calc Drug Dose 54.8 ml/min Estimated GFR () 79.9 Estimated GFR (Non- 69.0 BUN/Creatinine Ratio 42.5 10-20 Random Glucose 106 70-99 mg/dl Calcium Level 7.8 8.5-10.1 mg/dl
[2016-03-31] MEDS: ACETAMINOPHEN 325 MG TAB PO PRN (19:55)
[2016-03-31] MEDS: FERROUS SULFATE 325 MG TAB PO SCH ×2 (21:00→21:26)
[2016-03-31] MEDS: CHOLECALCIFEROL 1000 INTER.UNIT TAB PO SCH (21:26)
[2016-03-31] MEDS: ASPIRIN 81 MG ECTAB PO SCH (21:26)
[2016-03-31] MEDS: CLOPIDOGREL BISULFATE 75 MG TAB PO SCH (21:26)
[2016-03-31] MEDS: ATORVASTATIN 20 MG TAB PO SCH (21:26)
[2016-03-31] MEDS: CITALOPRAM 40 MG TAB PO SCH (21:26)
[2016-03-31] MEDS: CLONAZEPAM 0.5 MG TAB PO PRN (21:34)
[2016-04-01] MEDS: FAMOTIDINE IV INJ 20 MG in DEXTROSE 5% 100ML 100 ML IV SCH (00:07)
[2016-04-01 00:43] VITALS: BP 123/63; PULSE 77; TEMP 36.6; O2SAT 97
[2016-04-01 03:28] VITALS: PULSE 76; O2SAT 98
[2016-04-01] MEDS: ALBUT/IPRATROP 3MG/0.5MG NEB 3 ML VIAL INH SCH ×2 (03:28→07:10)
[2016-04-01 06:03] LABS: HEMATOCRIT 34.2 % (37-47); MEAN CELL VOLUME 101.2 fL (80-100); MEAN CORPUSCULAR HEMOGLOBIN 32.2 pg (25-34); MEAN CORPUSCULAR HGB CONC 31.9 g/dl (32-36); MEAN PLATELET VOLUME 9.3 fL (7.4-10.4); PLATELET COUNT 244 K/uL (130-400); RED BLOOD COUNT 3.38 M/uL (4.2-5.4)
[2016-04-01 06:48] LABS: BUN/CREATININE RATIO 36.6 (10-20); CALCIUM 7.7 mg/dl (8.5-10.1); CREATININE 0.92 mg/dl (0.60-1.20); POTASSIUM 3.1 mmol/L (3.5-5.1)
[2016-04-01 07:12] VITALS: PULSE 84; O2SAT 94
[2016-04-01 07:17] VITALS: BP 169/79; PULSE 78; TEMP 37; O2SAT 95
[2016-04-01] MEDS: CALCIUM CARBONATE 1250MG TAB PO SCH (07:48)
[2016-04-01] MEDS: PANTOprazole SOD 40 MG TAB PO SCH (07:49)
[2016-04-01] MEDS: NICOTINE 21 MG/24 HR TDSY TD SCH (07:50)
[2016-04-01] MEDS: ENOXAPARIN 40 MG/0.4 ML SYR SQ SCH (07:50)
[2016-04-01] MEDS: DOXYCYCLINE IV 100 MG in DEXTROSE 5% 100ML 100 ML IV SCH (08:00)
[2016-04-01] MEDS ORDERED: METHYLPREDNISOLONE IV 40 MG in SYRINGE 0 ML IV SCH (08:00)
--- NOTE | 2016-04-01 08:15 | Progress Note ---
Internal Med Progress Note Date of Service: Apr 01, 2016. Provider Documentation: SUBJECTIVE: Patient is seen and examined at bedside. Feels much better. Cough and SOB much improved. Denies any chest pain, nausea, abd pain, palpitations. OBJECTIVE: Vital Signs-as noted below Physical Exam: General Appearance:Fragile, chronic aill appearing, no apparent distress Head: normocephalic, Atraumatic Eyes: normal inspection, EOMI, PERRLA Neck: supple, Trachea midline Respiratory/Chest: Decreased breath sounds, CTA, No accessory muscle use Cardiovascular: S1, S2, No murmur Abdomen/GI:Soft, Non tender, Bowel sounds present Extremities/Musculoskelatal:normal inspection, Trace pedal edema Neurologic/Psych:AAOX3, grossly no focal neurological deficits Skin: normal color, warm Lab data as noted below. ASSESSMENT & PLAN: Patient is a 71 yr old female with PMHx of COPD on 3L O2 at home, Chronic Anemia , HTN, Dyslipidemia presents with persistent cough for over a week. Also had associated SOB and wheezing. Pt tried COPD rescue kit (Levaquin and Prednisone taper) with no relief. CXR showed no consolidation. ACUTE ON CHRONIC COPD EXACERBATION Currently saturating well on 3L O2- her baseline CXR: no consolidation Continue glucocorticoids and bronchodilators Continue to taper steroids-Switch to prednisone taper Continue Doxycycline- switch to PO levaquin continue O2 support-Taper off oxygen to keep sats above 92% Patient is a current smoker: Counselled to quit smoking- Nicotine replacement Sputum cultures: moderate normal gabby Advised to continue inhalers at home upon discharge CHRONIC ANEMIA HgB Stable continue iron supplementation HISTORY OF CVA/TIA H/O CVA 2001 continue ASA/Plavix DEPRESSION/ANXIETY stable continue Celexa and Klonopin GERD continue PPI HTN stable Continue to monitor DYSLIPIDEMIA continue statin DVT PROPHYLAXIS SQ Lovenox CODE STATUS FULL CODE DISPOSITION: Plan to DC home today Vital Signs: Date Time Temp Pulse Resp B/P Pulse Ox O2 Delivery O2 Flow Rate FiO2 04/01/16 07:17 37.0 78 18 169/79 95 Nasal Cannula 3.0 04/01/16 07:12 84 18 94 Nasal Cannula 2.0 04/01/16 03:28 76 18 98 Nasal Cannula 3.0 04/01/16 00:43 36.6 77 18 123/63 97 Nasal Cannula 3.0 04/01/16 00:00 Nasal Cannula 3.0 03/31/16 23:06 75 18 98 Nasal Cannula 3.0 03/31/16 19:15 80 18 95 Nasal Cannula 3.0 03/31/16 17:00 Nasal Cannula 3.0 03/31/16 16:10 79 18 97 Nasal Cannula 3.0 03/31/16 15:33 36.6 78 18 143/72 95 3.0 03/31/16 10:00 36.6 80 20 126/68 98 Nasal Cannula 2.0 03/31/16 09:56 36.6 83 16 96 3.0 Lab Results: Results Past 24 Hours Test 04/01/16 05:33 Range/Units White Blood Count 9.60 4.8-10.8 K/uL Red Blood Count 3.38 4.2-5.4 M/uL Hemoglobin 10.9 12.0-16.0 g/dL Hematocrit 34.2 37-47 % Mean Corpuscular Volume 101.2 80-100 fL Mean Corpuscular Hemoglobin 32.2 25-34 pg Mean Corpuscular Hemoglobin Concent 31.9 32-36 g/dl RDW Standard Deviation 56.7 36.4-46.3 fL RDW Coefficient of Variation 15.3 11.5-14.5 % Platelet Count 244 130-400 K/uL Mean Platelet Volume 9.3 7.4-10.4 fL Sodium Level 143 136-145 mmol/L Potassium Level 3.1 3.5-5.1 mmol/L Chloride Level 109 98-107 mmol/L Carbon Dioxide Level 26 21-32 mmol/L Anion Gap 8.0 3-11 mmol/L Blood Urea Nitrogen 34 7-18 mg/dl Creatinine 0.92 0.60-1.20 mg/dl Est Creatinine Clear Calc Drug Dose 50.1 ml/min Estimated GFR () 71.6 Estimated GFR (Non- 61.8 BUN/Creatinine Ratio 36.6 10-20 Random Glucose 106 70-99 mg/dl Calcium Level 7.7 8.5-10.1 mg/dl
[2016-04-01] MEDS ORDERED: POTASSIUM CHLORIDE 10 MEQ TABCR PO ONE (08:30)
[2016-04-01] MEDS ORDERED: PRED10TA PO (08:32)
[2016-04-01] MEDS ORDERED: LEVO1TAB33 PO (08:32)
[2016-04-01] MEDS ORDERED: NCDT21 TD (08:32)
--- NOTE | 2016-04-01 08:36 | Discharge Instructions ---
Discharge Instructions Admission Reason for Admission: Copd Exacerbation Discharge Discharge Diagnosis / Problem: Acute on chronic COPD exacerbation Discharge Goals Goal(s): Decrease discomfort, Improve function Activity Recommendations Activity Limitations: resume your previous activity Exercise/Sports Limitations: as tolerated . Instructions / Follow-Up Instructions / Follow-Up Follow up with on 04/06/16 at 10:50AM Complete the antibiotic and steroid course as prescribed Advised to quit smoking No smoking while on Nicotine patch Current Hospital Diet Patient's current hospital diet: Regular Diet Discharge Diet Recommended Diet: Regular Diet Pending Studies Studies pending at discharge: no Medical Emergencies . Who to Call and When: Medical Emergencies: If at any time you feel your situation is an emergency, please call 911 immediately. . Non-Emergent Contact Non-Emergency issues call your: Primary Care Provider Call Non-Emergent contact if: you have a fever, you have any medication questions . . "Provider Documentation" section prepared by Garrick Myles. VTE Core Measure Inpt VTE Proph given/why not?: Enoxaparin (Lovenox)SQ
[2016-04-01 09:14] VITALS: BP 169/79; PULSE 78; TEMP 37; O2SAT 95
--- NOTE | 2016-04-01 19:24 | Discharge Summary ---
Discharge Summary Admission Date: Mar 28, 2016 at 20:08 Discharge Date: Apr 01, 2016 Discharge Disposition: Home Principal Diagnosis: Acute on chronic COPD exacerbation Procedures: CXR: IMPRESSION: Cardiomegaly, emphysema, and additional chronic changes as above. There is no acute cardiopulmonary abnormality. Consultations: None Pending Studies/Follow-Up: Follow up with on 04/06/16 at 10:50AM Medication Reconciliation New Medications: Nicotine (Nicotine) 1 Patch Tdsy 1 PATCH TD QAM for 30 Days, #30 Changed Medications: Prednisone (Prednisone) 10 Mg Tab 10 MG PO UD for 9 Days, #18 (Changed from: TAKE 6 TABS DAILY X 4 DAYS THEN 5 TABS DAILY X4 DAYS, 4 TABS DAILY X4 DAYS, 3 TABS DAILY X4 DAYS, 2 TABS DAILY X4 DAYS, 1 TAB DAILY X4 DAYS THEN STOP ) TAKE 3 TABS DAILY X 3 DAYS THEN 2 TABS DAILY X3 DAYS, 1 TAB DAILY X3 DAYS THEN STOP Continued Medications: Albuterol Sulfate (Proair Respiclick) 108 Mcg/Act Aer 2 PUFFS INH QID Aspirin (Aspirin Ec) 81 Mg Tab 81 MG PO QPM Atorvastatin (Lipitor) 20 Mg Tab 20 MG PO QPM, TAB Cholecalciferol (Vitamin D 1000 Unit) 1,000 Unit Cap 1000 INTER.UNIT PO QPM Citalopram Hydrobromide (Citalopram Hydrobromide) 40 Mg Tab 40 MG PO QPM Clonazepam (Klonopin) 0.5 Mg Tab 0.5 MG PO TID PRN for Anxiety Clopidogrel (Plavix) 75 Mg Tab 75 MG PO QPM, 0 Refills Denosumab (Prolia) 60 Mg/Ml Lia 60 MG SC Q6 MONTHS Ferrous Sulfate (Ferrous Sulfate) 325 Mg Tab 187.5 MG PO QPM Fluticasone Propionate (Nasal) (Flonase Allergy Relief) 50 Mcg/Act Spr 2 SPRAY TAY DAILY PRN for PRN Folic Acid (Folvite) 1 Mg Tab 1 MG PO QPM Hydrocodone W/ Homatropine (Hycodan 5/1.5MG 5 Ml) 1 Syp Syp 5 ML PO Q4H PRN for PRN, ML Hyoscyamine Sulfate (Hyoscyamine Sulfate Odt) 0.125 Mg Tab 0.125 MG SL Q4 PRN for ABDOMINAL PAIN Ipratropium-Albuterol (Duoneb) 3 Ml Nebu 1 TREATMENT INH Q6 PRN for SOB/Wheezing, INHA Levofloxacin (Levaquin) 500 Mg Tab 500 MG PO DAILY for 4 Days, #4 (This prescription has been renewed) Nitroglycerin (Nitrostat) 0.4 Mg Tab 0.4 MG UT UD PRN for Chest Pain, [address] TABLET UNDER THE TONGUE IF NEEDED FOR CHEST PAIN. MAY REPEAT 3 TIMES. Omeprazole (Prilosec) 20 Mg Capcr 20 MG PO DAILY, CAP Oxygen (Oxygen) Gas 3 LITERS NA DAILY and HS Oyster Shell (Calcium) 500 Mg Tab 500 MG PO BID Potassium Gluconate (Potassium Gluconate) 550 Mg Tab 550 MG PO QPM Umeclidinium [place] (Incruse Ellipta) 62.5 Mcg/Inh Inh Unknown Dose Discontinued Medications: Nystatin (Nystatin) 5 Ml Susp 5 ML PO QID for THRUSH Admission Information HPI (per Admitting provider): This is a 71 y/o female with PMHx of COPD on 3L O2 at home, Chronic Anemia, HTN , Dyslipidemia and other problems as outlined below who presents to the ED c/o persistent cough for over a week. Pt reports that over a week ago she developed a cough that is wet however she is having difficulty expectorating any sputum. Sxs are assoc with SOB and wheezing. Pt started COPD rescue kit (Levaquin and Prednisone taper) with no minimal relief. She has also been using her inhalers and nebulizers with only temporary relief. Pt currently lives at home alone with aides coming every day and her daughter lives next door. Pt denies fever/ chills, chest pain, abd pain, N/V, bowel or bladder issues, LE edema, calf pain , lightheadedness/dizziness. In the ED, vitals are stable. Pt is afebrile with no leukocytosis. HgB 11.8. CXR no consolidation. Pt received a DuoNeb treatment in the ED which gave her significant relief. She will be admitted for further evaluation and treatment. Physical Exam (per Admitting): General Appearance: WD/WN, no apparent distress, + pertinent finding (Pt is laying in bed with daughter at bedside ) Head: normocephalic, atraumatic Eyes: normal inspection ENT: hearing grossly normal Neck: supple Respiratory/Chest: chest non-tender, no respiratory distress, no accessory muscle use, + rhonchi, + wheezing Cardiovascular: regular rate, rhythm, no murmur Abdomen/GI: normal bowel sounds, non tender, soft Back: normal inspection Extremities/Musculoskelatal: normal inspection, no calf tenderness, + pedal edema (2+ bilat) Neurologic/Psych: alert, normal mood/affect, oriented x 3 Skin: normal color, warm/dry Hospital Course Patient is a 71 yr old female with PMHx of COPD on 3L O2 at home, Chronic Anemia , HTN, Dyslipidemia presents with persistent cough for over a week. Also had associated SOB and wheezing. Pt tried COPD rescue kit (Levaquin and Prednisone taper) with no relief. CXR showed no consolidation. ACUTE ON CHRONIC COPD EXACERBATION Currently saturating well on 3L O2- her baseline CXR: no consolidation Continue glucocorticoids and bronchodilators Continue to taper steroids-Switch to prednisone taper Continue Doxycycline- switch to PO levaquin continue O2 support-Taper off oxygen to keep sats above 92% Patient is a current smoker: Counselled to quit smoking- Nicotine replacement Sputum cultures: moderate normal gabby Advised to continue inhalers at home upon discharge CHRONIC ANEMIA HgB Stable continue iron supplementation HISTORY OF CVA/TIA H/O CVA 2001 continue ASA/Plavix DEPRESSION/ANXIETY stable continue Celexa and Klonopin GERD continue PPI HTN stable Continue to monitor DYSLIPIDEMIA continue statin DVT PROPHYLAXIS SQ Lovenox CODE STATUS FULL CODE DISPOSITION: Plan to DC home today Total time spent on discharge = This includes examination of the patient, discharge planning, medication reconciliation, and communication with other providers. Discharge Instructions Discharge Instructions Admission Reason for Admission: Copd Exacerbation Discharge Discharge Diagnosis / Problem: Acute on chronic COPD exacerbation Discharge Goals Goal(s): Decrease discomfort, Improve function Activity Recommendations Activity Limitations: resume your previous activity Exercise/Sports Limitations: as tolerated . Instructions / Follow-Up Instructions / Follow-Up Follow up with on 04/06/16 at 10:50AM Complete the antibiotic and steroid course as prescribed Advised to quit smoking No smoking while on Nicotine patch Current Hospital Diet Patient's current hospital diet: Regular Diet Discharge Diet Recommended Diet: Regular Diet Pending Studies Studies pending at discharge: no Medical Emergencies . Who to Call and When: Medical Emergencies: If at any time you feel your situation is an emergency, please call 911 immediately. . Non-Emergent Contact Non-Emergency issues call your: Primary Care Provider Call Non-Emergent contact if: you have a fever, you have any medication questions . . "Provider Documentation" section prepared by Garrick Myles. VTE Core Measure Inpt VTE Proph given/why not?: Enoxaparin (Lovenox)SQ
[2016-04-04] MEDS ORDERED: LSX40 PO (11:40)
[2016-04-04] MEDS ORDERED: PRED10TA PO (11:40)
[2016-04-04] MEDS ORDERED: UMEC1INH INH (11:40)
[2016-05-31] MEDS ORDERED: AMOX1TAB43 PO (16:58)
[2016-05-31] MEDS ORDERED: LSX40 PO (16:58)
[2016-05-31] MEDS ORDERED: TPRSR25 PO (16:58)
[2016-05-31] MEDS ORDERED: PRD20 PO (16:58)
== END 2016-04-01 09:45 | disposition home health service (06) | DRG 191 ==
LOC: ENRESERVDT → ENRESERVTM → EDBD 17:09 → C.EDB 17:14 → C.MED 20:08 → C.4E 03-31 10:06
PROVIDERS: ADMIT Internal Medicine; ATTEND Internal Medicine
DX: J44.1 Chronic obstructive pulmonary disease with (acute) exacerbation (principal); J96.11 Chronic respiratory failure with hypoxia; I10 Essential (primary) hypertension; E78.5 Hyperlipidemia, unspecified; D50.9 Iron deficiency anemia, unspecified; F17.210 Nicotine dependence, cigarettes, uncomplicated; E55.9 Vitamin D deficiency, unspecified; F32.9 Major depressive disorder, single episode, unspecified; F41.9 Anxiety disorder, unspecified; K21.9 Gastro-esophageal reflux disease without esophagitis; Z79.02 Long term (current) use of antithrombotics/antiplatelets; Z79.82 Long term (current) use of aspirin; Z79.899 Other long term (current) drug therapy; Z99.81 Dependence on supplemental oxygen; Z86.73 Personal history of transient ischemic attack (TIA), and cerebral infarction without residual deficits

== ENCOUNTER 2016-04-01 22:42 | Inpatient (IN) | payer OTHER ==
[~2016-04-01] VITALS: Ht 160 cm; Wt 65.7 kg
[~2016-04-01 22:42] MED LIST changes: +ALBU18002 INH; -ALBUAER19 INH; -DICY10CA12 PO; +FLUT0.15 NAE; -FLUT50SP14 NAE; -HYCUDL5 PO; +HYDR5SYP11 PO; -IPRASOL34 INH; +IPRASOL4 INH; +NCDT21 TD; +NYSS5 PO; -OXYC-57 PO; -PANC6000 PO; -POLY335025 PO; -PRED20TA PO; +PRLSR20 PO; -RANI300T2 PO; -SENN8.6T25 PO; -SIME1CHW17 PO; -TIOTCAP INH; +UMEC1INH
[2016-04-01] MEDS ORDERED: FUROSEMIDE 40 MG/4 ML VIAL IV STA (23:19)
[2016-04-01] MEDS ORDERED: ALBUT/IPRATROP 3MG/0.5MG NEB 3 ML VIAL INH STA (23:19)
[2016-04-01 23:23] LABS: COMPLETE YES; HEMATOCRIT 33.1 % (37-47); IG% 0.4 %; LYMPH % 7.3 %; LYMPH ABS # 0.65 K/uL (1.2-3.4); MEAN CORPUSCULAR HEMOGLOBIN 32.6 pg (25-34); MEAN CORPUSCULAR HGB CONC 32.6 g/dl (32-36); MEAN PLATELET VOLUME 9.1 fL (7.4-10.4); MONO % 5.3 %; PLATELET COUNT 244 K/uL (130-400); RED BLOOD COUNT 3.31 M/uL (4.2-5.4); WHITE BLOOD COUNT 8.95 K/uL (4.8-10.8)
[2016-04-01 23:34] LABS: PARTIAL THROMBOPLASTIN RATIO 0.9; PROTHROMBIN TIME (PATIENT) 11.2 SECONDS (9.0-12.0)
[2016-04-01 23:44] LABS: CALCIUM 7.5 mg/dl (8.5-10.1); POTASSIUM 4.2 mmol/L (3.5-5.1)
[2016-04-01 23:55] LABS: CKMB/CK RATIO 3.9 (0-3.0); CREATININE 0.86 mg/dl (0.60-1.20)
[2016-04-02] VITALS (8 sets, daily range): BP systolic 101–146; BP diastolic 59–81; PULSE 74–79; TEMP 36.4–36.8; O2SAT 92–98; Ht 160 cm; Wt 65.7 kg
[2016-04-02] MEDS ORDERED: OPTIRAY 320 IV PRN (01:15)
[2016-04-02 01:56] LABS: MAGNESIUM 1.9 mg/dl (1.8-2.4)
[2016-04-02] MEDS ORDERED: ACETAMINOPHEN 325 MG TAB PO PRN (02:15)
[2016-04-02] MEDS ORDERED: ONDANSETRON INJ 2 MG/ML 2 ML VIAL IV PRN (02:15)
[2016-04-02] MEDS ORDERED: ALBUT/IPRATROP 3MG/0.5MG NEB 3 ML VIAL INH PRN (02:15)
[2016-04-02] MEDS ORDERED: MoRPHine SULFATE 4 MG/ML 1 ML CARP\\VIAL IV PRN (02:15)
[2016-04-02] MEDS ORDERED: TRAMADOL HCL 50 MG TAB PO PRN (02:15)
[2016-04-02] MEDS ORDERED: NITROGLYCERIN 0.4 MG SL PER TAB CHARGE SL PRN (02:15)
[2016-04-02] MEDS ORDERED: PANTOprazole INJ 80 MG in DEXTROSE 5% 100ML 100 ML IV ONE (03:30)
[2016-04-02] MEDS ORDERED: ALBUT/IPRATROP 3MG/0.5MG NEB 3 ML VIAL INH STA (03:31)
--- NOTE | 2016-04-02 03:48 | EMERGENCY ROOM VISIT NOTE ---
History Report prepared by Juwan: Britni Luevano Under the Supervision of: Dr. Shar Ramirez M.D. First contact with patient: 22:50 Stated Complaint: CHEST PAIN, BILAT. LEG SWELLING, MILD CHEST PAIN History of Present Illness The patient is a 71 year old female who presents to the Emergency Room with complaints of resolved chest pain beginning just prior to arrival. The patient states that she normally wears 3 liters of oxygen at home. She took off her oxygen to smoke a cigarette and when she came back into the house she experienced chest pain and shortness of breath. The patient is also experiencing increased swelling to bilateral lower legs. She is also experiencing a wet cough and headache. She was discharged from [facility] this morning for COPD exacerbation. She arrived EMS. Pt denies LOC, headache, fevers, chills, diaphoresis, visual changes, neck pain, nausea, vomiting, abdominal pain, back pain, melena, hematochezia, urinary symptoms, numbness, weakness, lymphadenopathy, rash, or other complaints. Source of History: patient Onset: just EMS Position: chest Timing: resolved Associated Symptoms: + SOB, + cough Note: Patient has increased swelling to bilateral lower legs. Review of Systems See HPI for pertinent positives and negatives. A total of ten systems were reviewed and were otherwise negative. 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 (11) Sleep apnea (12) Tobacco user (13) Vitamin D deficiency Surgical Problems: (1) Status post appendectomy (2) Status post cholecystectomy (3) Status post ERCP (4) Status post hernia repair (5) Status post hysterectomy Family History Diabetes mellitus FHx: gallbladder disease Heart disease Hypertension Kidney stones Lung disease Social History Smoking Status: Current Every Day Smoker Alcohol Use: none Drug Use: none Marital Status: single, Housing Status: lives with family Occupation Status: retired Current/Historical Medications Scheduled Albuterol Sulfate (Proair Respiclick), 2 PUFFS INH QID Aspirin (Aspirin Ec), 81 MG PO QPM Atorvastatin (Lipitor), 20 MG PO QPM Cholecalciferol (Vitamin D 1000 Unit), 1,000 INTER.UNIT PO QPM Citalopram Hydrobromide (Citalopram Hydrobromide), 40 MG PO QPM Clopidogrel (Plavix), 75 MG PO QPM Denosumab (Prolia), 60 MG SC Q6 MONTHS Ferrous Sulfate (Ferrous Sulfate), 187.5 MG PO QPM Folic Acid (Folvite), 1 MG PO QPM Levofloxacin (Levaquin), 500 MG PO DAILY Nicotine (Nicotine), 1 PATCH TD QAM Omeprazole (Prilosec), 20 MG PO DAILY Oxygen (Oxygen), 3 LITERS NA DAILY and HS Oyster Shell (Calcium), 500 MG PO BID Potassium Gluconate (Potassium Gluconate), 550 MG PO QPM Prednisone (Prednisone), 10 MG PO UD Scheduled PRN Clonazepam (Klonopin), 0.5 MG PO TID PRN for Anxiety Fluticasone Propionate (Nasal) (Flonase Allergy Relief), 2 SPRAY TAY DAILY PRN for PRN Hydrocodone W/ Homatropine (Hycodan 5/1.5MG 5 Ml), 5 ML PO Q4H PRN for PRN Hyoscyamine Sulfate (Hyoscyamine Sulfate Odt), 0.125 MG SL Q4 PRN for ABDOMINAL PAIN Ipratropium-Albuterol (Duoneb), 1 TREATMENT INH Q6 PRN for SOB/Wheezing Nitroglycerin (Nitrostat), 0.4 MG UT UD PRN for Chest Pain Miscellaneous Medications Umeclidinium Ulysses (Incruse Ellipta), Unknown Dose Allergies Coded Allergies: Ciprofloxacin (Verified Allergy, Mild, ITCHY, 03/28/16) Azithromycin (Verified Allergy, Unknown, unknown, 03/28/16) Influenza Vaccines (Unverified Allergy, Unknown, HIVES ON THE SITE, ) Nitrates, Organic (Verified Allergy, Unknown, UNSURE; BUT PATIENT TAKES NITROSTAT PER ADMIT MED REC., 03/28/16) Nitrofurantoin (Verified Allergy, Unknown, UNSURE, 03/28/16) Pneumococcal Polysaccharides (Verified Allergy, Unknown, unk, 03/28/16) Physical Exam Vital Signs Date Time Temp Pulse Resp B/P Pulse Ox O2 Delivery O2 Flow Rate FiO2 04/02/16 00:30 74 16 121/72 94 Nasal Cannula 3.0 04/01/16 23:05 72 04/01/16 22:59 97 Nasal Cannula 3.0 04/01/16 22:59 96 Nasal Cannula 3.0 04/01/16 22:59 36.9 72 20 116/62 98 Nasal Cannula 3.0 Physical Exam GENERAL: Awake, mildly dysemic, well-appearing, in no distress HENT: Normocephalic, atraumatic. Oropharynx unremarkable. EYES: Normal conjunctiva. Sclera non-icteric. NECK: Supple. No nuchal rigidity. FROM. No JVD. RESPIRATORY: Rhonchi bilaterally. CARDIAC: Regular rate, normal rhythm. Extremities warm and well perfused. Pulses equal. ABDOMEN: Soft, non-distended. No tenderness to palpation. No rebound or guarding. No masses. RECTAL: Deferred. MUSCULOSKELETAL: Chest examination reveals no tenderness. The back is symmetrical on inspection without obvious abnormality. There is no CVA tenderness to palpation. No joint edema. LOWER EXTREMITIES: Calves are equal size bilaterally and non-tender. 1-2+ pitting edema bilaterally. No discoloration. NEURO: Normal sensorium. No sensory or motor deficits noted. SKIN: No rash or jaundice noted. Medical Decision & Procedures ER Provider Diagnostic Interpretation: Chest x-ray. Findings: A chest x-ray was performed and revealed mild cephalization present and mild cardiomegaly, no pneumothorax, effusion, infiltrate, free air under the diaphragm, or wide mediastinum. Laboratory Results 04/01/16 23:05 Red Blood Count 3.31, Mean Corpuscular Volume 100.0, Mean Corpuscular Hemoglobin 32.6, Mean Corpuscular Hemoglobin Concent 32.6, Mean Platelet Volume 9.1, Neutrophils (%) (Auto) 87.0, Lymphocytes (%) (Auto) 7.3, Monocytes (%) ( Auto) 5.3, Eosinophils (%) (Auto) 0.0, Basophils (%) (Auto) 0.0, Neutrophils # ( Auto) 7.79, Lymphocytes # (Auto) 0.65, Monocytes # (Auto) 0.47, Eosinophils # ( Auto) 0.00, Basophils # (Auto) 0.00 04/01/16 23:05 Test 04/01/16 23:05 04/01/16 23:20 White Blood Count 8.95 K/uL (4.8-10.8) Red Blood Count 3.31 M/uL (4.2-5.4) Hemoglobin 10.8 g/dL (12.0-16.0) Hematocrit 33.1 % (37-47) Mean Corpuscular Volume 100.0 fL (80-100) Mean Corpuscular Hemoglobin 32.6 pg (25-34) Mean Corpuscular Hemoglobin Concent 32.6 g/dl (32-36) Platelet Count 244 K/uL (130-400) Mean Platelet Volume 9.1 fL (7.4-10.4) Neutrophils (%) (Auto) 87.0 % Lymphocytes (%) (Auto) 7.3 % Monocytes (%) (Auto) 5.3 % Eosinophils (%) (Auto) 0.0 % Basophils (%) (Auto) 0.0 % Neutrophils # (Auto) 7.79 K/uL (1.4-6.5) Lymphocytes # (Auto) 0.65 K/uL (1.2-3.4) Monocytes # (Auto) 0.47 K/uL (0.11-0.59) Eosinophils # (Auto) 0.00 K/uL (0-0.5) Basophils # (Auto) 0.00 K/uL (0-0.2) RDW Standard Deviation 55.6 fL (36.4-46.3) RDW Coefficient of Variation 15.1 % (11.5-14.5) Immature Granulocyte % (Auto) 0.4 % Immature Granulocyte # (Auto) 0.04 K/uL (0.00-0.02) Prothrombin Time 11.2 SECONDS (9.0-12.0) Prothromb Time International Ratio 1.0 (0.9-1.1) Activated Partial Thromboplast Time 22.3 SECONDS (21.0-31.0) Partial Thromboplastin Ratio 0.9 Anion Gap 7.0 mmol/L (3-11) Est Creatinine Clear Calc Drug Dose 56.0 ml/min Estimated GFR () 77.7 Estimated GFR (Non- 67.0 BUN/Creatinine Ratio 37.0 (10-20) Calcium Level 7.5 mg/dl (8.5-10.1) Magnesium Level 1.9 mg/dl (1.8-2.4) Total Bilirubin 0.4 mg/dl (0.2-1) Direct Bilirubin 0.1 mg/dl (0-0.2) Aspartate Amino Transf (AST/SGOT) 13 U/L (15-37) Alanine Aminotransferase (ALT/SGPT) 19 U/L (12-78) Alkaline Phosphatase 58 U/L (45-117) Total Creatine Kinase 112 U/L (26-192) Creatine Kinase MB 4.4 ng/ml (0.5-3.6) Creatine Kinase MB Ratio 3.9 (0-3.0) Pro-B-Type Natriuretic Peptide 1352 pg/ml (0-900) Total Protein 5.4 gm/dl (6.4-8.2) Albumin 2.5 gm/dl (3.4-5.0) Lipase 467 U/L (73-393) Bedside Troponin I 0.000 ng/ml (0-0.045) Laboratory results reviewed by me Medications Administered Medications (Trade) Dose Ordered Sig/Lakeshia Route Start Time Stop Time Status Last Admin Dose Admin Furosemide (Lasix Inj) 20 mg NOW STAT IV 04/01/16 23:19 04/01/16 23:21 DC 04/01/16 23:45 20 MG Albuterol/ Ipratropium (Duoneb) 3 ml NOW STAT INH 04/01/16 23:19 04/01/16 23:21 DC 04/01/16 23:45 3 ML ECG Indication: chest pain Rate (beats per minute): 73 Rhythm: normal sinus Findings: no acute ischemic change, no ectopy ED Course 2305: The patient was evaluated in room B7. A complete history and physical exam was performed. 2319: Duoneb 3 ml INH, Lasix Inj 20 mg IV. 0123: Discussed the patient's case with Dr. Lino Kimball. The patient will be evaluated for further treatment and disposition. Medical Decision Triage Nursing notes reviewed. The patient's presentation and history were concerning for chest pain and leg swelling. Etiologies such as cardiac ischemia, COPD, CHF,pleurisy, aortic dissection, pulmonary embolism, pneumonia, pneumothorax, musculoskeletal, infections, gastrointestinal, as well as others were entertained. The patient was evaluated. She was feeling better after. She was still coarse on auscultation. The patient was given a another nebulizer treatment and a dose of IV Lasix. She did diurese with this. Her CBC showed a mild anemia.. No leukocytosis. Coags are negative. Panel revealed a prerenal state. Troponin was negative. Lipase was mildly elevated but unremarkable. BNP was elevated at 1352. Chest CT was performed and revealed a possible left sided pneumonia. The patient is on Levaquin already. No PE noted. Because of the chest pain consultation was made with internal medicine for further evaluation and management. The chart was completed utilizing [employer] Speech voice recognition software. Grammatical errors, random word insertions, pronoun errors, and incomplete sentences are an occasional consequence of this system due to software limitations, ambient noise, and hardware issues. Any formal questions or concerns about the content, text, or information contained within the body of this dictation should be directly addressed to the physician for clarification. Consults Time Called: 0121 Consulting Physician: Dr. Lino Kimball Returned Call: [phone] Discussed the patient's case. The patient will be evaluated for further treatment and disposition. Impression Primary Impression: SOB (shortness of breath) Additional Impressions: Lower extremity edema Chest pain CHF (congestive heart failure) Scribe Attestation The scribe's documentation has been prepared under my direction and personally reviewed by me in its entirety. I confirm that the note above accurately reflects all work, treatment, procedures, and medical decision making performed by me. Departure Information Dispostion Being Evaluated By Hospitalist Lena Ruffin D.O. (PCP) Problem Qualifiers
--- NOTE | 2016-04-02 04:46 | HISTORY & PHYSICAL EXAMINATION ---
DATE OF ADMISSION: 04/02/2016 PRIMARY CARE DOCTOR: Dr. Quintanilla CHIEF COMPLAINT: Chest pain, leg swelling. HISTORY OF PRESENT ILLNESS: Medical history is significant for chronic respiratory failure secondary to COPD on home O2, ongoing tobacco abuse, history of CVA as per records, hypertension, history of ESBL E. 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 Recent confinement a few days ago for COPD exacerbation. Patient discharged on Prednisone and Levaquin course. Breathing, cough sx improved upon discharge yesterday AM. Yesterday afternoon, patient noted bilateral leg swelling more than usual. Patient developed achy L sided chest pain and some shortness of breath. No unusual cough symptoms. Patient admits that abdomen feels bloated as well. Admits to dark stools for months now, which she attributes to iron. Patient denies abdominal pain or distressing heartburn sx. Patient was brought to Emergency Room. Upon arrival at the Emergency Room, chest pain was resolving. Received Lasix for possible CHF. MEDICAL HISTORY: As above. 2D echo was done as outpatient last 01/17/2016, the results could not be accessed for now. Colonoscopy in September 2013 showed tortuous colon. An upper EGD in July 2009 showed gastric angioectasia with no bleeding, gastric mucosal erythema. SURGERIES: She has had appendectomy, hysterectomy, cholecystectomy and hernia repair. HOME MEDICATIONS: Include; DuoNebs, Nitrostat, Prilosec, calcium, oxygen, potassium chloride, Plavix, Prolia, Folvite, ferrous sulfate, Flonase, Hycodan, hyoscyamine, aspirin, ProAir, Lipitor, vitamin D, citalopram and Klonopin. ALLERGIES: TO NITROFURANTOIN, QUINOLONES, PNEUMOCOCCAL POLYSACCHARIDE, AZITHROMYCIN NITRATE AND FLU VACCINE. FAMILY HISTORY: There is a family history of heart disease and diabetes. PERSONAL AND SOCIAL HISTORY: Noted to have half pack daily. No chronic intake of alcoholic beverages. 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 REVIEW OF SYSTEMS: As per HPI, all other ROS negative. PHYSICAL EXAMINATION: VITAL SIGNS: Blood pressure was noted be 160/82, pulse rate 72, RR 18, T 37, O2 sats 96 on 3 liters. GENERAL: Looks older than stated age. No respiratory distress. SKIN: Pallor. HEENT: Pale palpebral conjunctivae. Dry mucosa. nasal cannula in place NECK: Supple CHEST: Occasional rhonchi, wheeze. HEART: Regular rate and rhythm. ABDOMEN: Some distention, nontender. RECTAL: Intact sphincter, dark stool, heme positive. EXTREMITIES: roel lower extremity edema, no tenderness. NEUROLOGIC: No gross focality. LABORATORIES: Hemoglobin was noted to be 10.8, hematocrit 30.1 white cell count 9.9 platelets 244. Sodium 140, potassium 4.2, chloride 109, CO2 26, BUN 13, creatinine 0.8, glucose 102, troponin was zero. BNP 1352. Chest x-ray; minimal congestion CTA initial read bilateral pleural effusions. EKG; rate 75, normal sinus rhythm, no ischemia. ASSESSMENT: 1. Shortness of breath secondary to acute congestive heart failure (mild)) fluid retention from steroid therapy for bronchitis documented weight gain of 7 pounds from recent confinement 2. Left-sided chest pain possible congestion anxiety definitely contributory ? ACS 3. chronic respiratory failure 2 to COPD on home O2 recent confinement for COPD exacerbation improved symptoms, px completing outpx Levaquin, steroid course 4. HTN, BP slightly elevated 5. anemia, Hg drop from normal baseline last year progressive Hg decrease over the last 2 months possible slow UGIB w/ account of dark stools 6. history of cerebrovascular accident on ASA/Plavix as per records. 7. hx CVA as per records 8. ongoing tobacco abuse 9. hx chronic pancreatitis 2 to pancreatic cyst as per px px has chronic abd pain, sx at baseline PLAN: PCU. additional diuretic tx as per Cardio strict IOs, daily weights, CHF education ffr cardiac markers, retrieve recent outpatient 2D echo. (12/2015) Cardio consult RE cp, CHF (Patient known to Dr. Martinez) Appropriate to hold home antiplatelet tx for now with the GI bleed. IV PPI BID for poss UGIB until seen by GI. Nicotine patch DVT prophylaxis, SCDs. RE Gi bleed Full code. MTDD
--- NOTE | 2016-04-02 05:59 | DIAGNOSTIC IMAGING REPORT ---
CHEST ONE VIEW PORTABLE CLINICAL HISTORY: CHEST PAIN dyspnea COMPARISON STUDY: 03/28/2016 FINDINGS: Moderate stable cardia megaly. Calcified mediastinal as well as hilar nodes. Mild increase in bronchovascular prominence compared to the prior study. Interval small left pleural effusion. Trace pleural effusion right base. IMPRESSION: Congestive failure superimposed upon chronic interstitial change. Electronically signed by: Sanjay Cid M.D. 04/02/2016 5:57 AM Dictated Date/Time: 04/02/2016 5:56 AM
--- NOTE | 2016-04-02 06:28 | DIAGNOSTIC IMAGING REPORT ---
CHEST CTA for PULMONARY ARTERIES CT DOSE: 311.97 mGy.cm HISTORY: Chest pain dyspnea TECHNIQUE: Multiaxial CT images of the chest were performed following the intravenous administration of contrast to evaluate the pulmonary arteries. Maximal intensity projection images were also obtained. COMPARISON STUDY: 02/13/2011 FINDINGS: Moderate atherosclerotic change thoracic aorta. Pulmonary vasculature enhances appropriately. No evidence of pulmonary embolus. Left and to a lesser extent right basilar infiltrative change with mild associated consolidative change. Mild Baseline parenchymal fibrotic change. Several small scattered parenchymal nodules unchanged in the prior study. IMPRESSION: 1. Study is negative for pulmonary embolus. 2. Parenchymal infiltrative change with mild associated consolidative change left and to a lesser extent right base. 3. Baseline parenchymal fibrosis. Electronically signed by: Sanjay Cid M.D. 04/02/2016 6:27 AM Dictated Date/Time: 04/02/2016 6:25 AM
[2016-04-02 07:03] LABS: COMPLETE YES; EOS % 1.1 %; HEMATOCRIT 32.9 % (37-47); IG% 0.3 %; LYMPH % 13.3 %; LYMPH ABS # 1.22 K/uL (1.2-3.4); MEAN CELL VOLUME 99.1 fL (80-100); MEAN CORPUSCULAR HEMOGLOBIN 32.8 pg (25-34); MEAN CORPUSCULAR HGB CONC 33.1 g/dl (32-36); MONO % 11.7 %; NEUT % 73.6 %; PLATELET COUNT 218 K/uL (130-400); RED BLOOD COUNT 3.32 M/uL (4.2-5.4); WHITE BLOOD COUNT 9.14 K/uL (4.8-10.8)
--- NOTE | 2016-04-02 07:07 | DIAGNOSTIC IMAGING REPORT ---
BILATERAL LOWER EXTREMITY VENOUS DOPPLER HISTORY: Pain. Edema. leg swelling COMPARISON STUDY: 02/13/2011 FINDINGS: There is normal compressibility, flow, and augmentation within the bilateral lower extremity deep venous systems. IMPRESSION: No DVT within the right or left lower extremity. Electronically signed by: Sanjay Cid M.D. 04/02/2016 7:05 AM Dictated Date/Time: 04/02/2016 7:05 AM
[2016-04-02 07:36] LABS: BLOOD UREA NITROGEN 27 mg/dl (7-18); CALCIUM 7.7 mg/dl (8.5-10.1); CARBON DIOXIDE 31 mmol/L (21-32); CHLORIDE 104 mmol/L (98-107); GLUCOSE 77 mg/dl (70-99); POTASSIUM 3.8 mmol/L (3.5-5.1); SODIUM 142 mmol/L (136-145)
[2016-04-02 07:47] LABS: FERRITIN 25.2 ng/ml (8.0-388.0); TOTAL IRON BINDING CAPACITY 238 mcg/dl (250-450)
[2016-04-02] MEDS: LEVOFLOXACIN 500 MG TAB PO SCH (08:51)
[2016-04-02] MEDS: NICOTINE 7 MG/24 HR TDSY TD SCH (08:51)
[2016-04-02] MEDS ORDERED: PANTOprazole INJ 80 MG in SYRINGE 0 ML IV SCH (09:00)
[2016-04-02] MEDS ORDERED: CONSULT PHARMACY SCH (09:00)
--- NOTE | 2016-04-02 09:57 | GASTROINTESTINAL CONSULTATION ---
DATE OF CONSULTATION: 04/02/2016 CHIEF COMPLAINT: Chest pain and leg swelling. HISTORY OF PRESENT ILLNESS: The patient is a 71-year-old female with a history of COPD, who presented to the Emergency Room with lower extremity swelling. Gastroenterology is consulted as the patient had dark stool as an outpatient. The patient denies having fevers, chills, or sweats. She denies having abdominal pain. She denies having bright red blood from rectum, vomiting or dark sticky stool. She has had a prior colonoscopy, which was performed approximately [address] Raghav Juares, which was within normal limits. Per report, she has also had an upper endoscopy about 7 years ago, which showed several AVMs. The patient was admitted with a stable blood count. PAST MEDICAL HISTORY: 1. COPD. 2. Ongoing tobacco abuse. 3. Hypertension. 4. Reflux. 5. Prior CVA. 6. Hypercholesterolemia. 7. Depression. OUTPATIENT MEDICATIONS: 1. DuoNeb. 2. Nitrostat. 3. Omeprazole. 4. Calcium. 5. Oxygen. 6. Plavix. 7. Prolia. 8. Folic acid. 9. Iron sulfate. 10. Flonase. 11. Hydrocodone. 12. Hyoscyamine. 13. Aspirin. 14. Lipitor. 15. Vitamin D. 16. Citalopram. 17. Klonopin. ALLERGIES: 1. NITROFURANTOIN. 2. QUINOLONES. 3. PNEUMOCOCCAL VACCINATION. 4. AZITHROMYCIN. 5. FLU VACCINATION. FAMILY HISTORY: There is a family history of heart disease and diabetes. SOCIAL HISTORY: The patient is smoking at least one-half pack per day. She denies alcoholic beverage use. Denies IV drug use. PAST SURGICAL HISTORY: 1. Appendectomy. 2. Hysterectomy. 3. Cholecystectomy. 4. Inguinal hernia repair. REVIEW OF SYSTEMS: GENERAL: No fevers and no chills. CARDIAC: No chest pain and no palpitations. PULMONARY: The patient is with some shortness of breath and cough. GASTROINTESTINAL: No abdominal pain noted. MUSCULOSKELETAL: No joint pain or new muscle pain noted by the patient. PSYCHIATRIC: History of depression, which appears to be stable. ENT: No difficulty swallowing. NEUROLOGIC: No headaches noted. No double vision noted. CARDIAC: No chest pains. DERMATOLOGIC: No new rashes. No itching noted by the patient. PHYSICAL EXAMINATION: VITAL SIGNS: Temperature is 36.5, pulse is 79, respiratory rate 16, and blood pressure is 101/64. HEENT: No scleral icterus noted. No JVD noted. LUNGS: Poor air sounds throughout all cole with coarse sounds on the left lobe. CARDIAC: Regular rhythm with a systolic murmur. ABDOMEN: Soft and nontender. EXTREMITIES: 2+ pitting edema bilaterally. NEUROLOGIC: Cranial nerves grossly intact. Motor grossly intact. LABORATORIES: Hemoglobin is 10.9, hematocrit 32.9, platelet count is 218, and white blood cell count 9.14. Chemistry: Sodium is 142, potassium 4.2, chloride is 109, BUN 32, creatinine is 0.86, and calcium 7.5. AST 13, ALT 19, and alkaline phosphatase 58. Creatine kinase 112. BNP 1352. Albumin 2.5. IMAGING STUDIES: Include a chest CT from 04/02/2016, notable for infiltration of the left and right lung bases, negative for pulmonary embolus. IMPRESSION: A 71-year-old female with O2 dependent chronic obstructive pulmonary disease, presenting for evaluation of lower extremity edema likely related to congestive heart failure. Gastroenterology is called for question of black stool, which may be attributed to her iron as her blood count has been stable between this admission and her last admission. We would be happy to perform an upper endoscopy during the hospital stay once her cardiac and respiratory status has resolved. In the meantime, I would suggest the use of Protonix 40 mg twice daily and call with any questions or concerns. RECOMMENDATIONS: 1. Protonix 40 mg twice daily to be done by hospitalist service. 2. Upper endoscopy if the patient desires prior to discharge once her cardiac and respiratory status improved. Please call with any questions or concerns. HAZEL
--- NOTE | 2016-04-02 11:56 | ECHOCARDIOGRAM REPORT ---
*NOTICE TO RECEIVING [employer] [employer] This information is strictly Confidential and protected under [place] law. [place] law prohibits you from making any further disclosure of this information unless further disclosure is expressly permitted by the written consent of the person to whom it pertains or is authorized by law. A general authorization for the release of medical or other information is not sufficient for this purpose. Hospital accepts no responsibility if the information is made available to any other person, INCLUDING THE PATIENT. Interpretation Summary * Name: MACRINA MADRIGAL Study Date: 04/02/2016 09:37 AM BP: 146/74 mmHg * Patient Location: C.2T\S\E220\S\1 HR: 75 * : 1945 (M/d/yyy) Gender: Female Height: 63 in * Age: 71 yrs Ethnicity: CA Weight: 155 lb * Ordering Physician: Anuj Martinez DO * Performed By: Viola Darby * * Reason For Study: CHF * BSA: 1.7 m2 * -- Conclusions -- * No significant change compared to previous study of 01/27/14. * Normal LV chamber size with mild concentric LVH. * Normal LV systolic function, EF 55-60%. * No segmental left ventricular wall motion abnormalities are noted. * Grade II diastolic dysfunction. * The right ventricular cavity size is normal (basal dimension <4.2 cm in right ventricular apical 4-chamber view). * Aortic valve sclerosis mild, without significant aortic valvular stenosis. * Moderate tricuspid regurgitation. * Mild left atrial enlargement. Procedure Details * A complete two-dimensional transthoracic echocardiogram was performed (2D, M-mode, Doppler and color flow Doppler). Left Ventricle * The left ventricle is normal in size. * There is mild concentric left ventricular hypertrophy. * Ejection Fraction = 55-60%. * Left ventricular systolic function is normal. * No segmental left ventricular wall motion abnormalities are noted. * The left ventricular wall motion is normal. Right Ventricle * The right ventricular cavity size is normal (basal dimension <4.2 cm in right ventricular apical 4-chamber view). * The right ventricular systolic function is normal as assessed by tricuspid annular plane systolic excursion (TAPSE) (normal >1.5 cm). Atria * The left atrium is mildly dilated. * Right atrial size is normal. * No ASD detected; PFO is not assessed. Mitral Valve * The mitral valve is normal in structure and function. Tricuspid Valve * The tricuspid valve anatomy is normal. * There is no tricuspid stenosis. * There is moderate tricuspid regurgitation. Aortic Valve * The aortic valve is trileaflet. * Aortic valve sclerosis mild, without significant aortic valvular stenosis. * There is no significant aortic regurgitation. Pulmonic Valve * The pulmonary valve is not well seen, but the Doppler examination is normal without significant regurgitation or stenosis. Great Vessels * The aortic root is normal size. Pericardium/Pleural * There is no pericardial effusion. Left Ventricular Diastolic Function * Diastolic dysfunction, Grade II (pseudonormalization pattern). MMode 2D Measurements and Calculations IVSd 1.1 cm IVSs 1.4 cm LVIDd 4.1 cm LVIDs 3.0 cm LVPWd 1.1 cm LVPWs 1.9 cm IVS/LVPW 1.0 FS 28.0 % EDV(Teich) 76.4 ml ESV(Teich) 34.6 ml EF(Teich) 54.7 % EDV(cubed) 71.5 ml ESV(cubed) 26.6 ml EF(cubed) 62.7 % % IVS thick 23.7 % % LVPW thick 74.0 % LV mass(C)d 152.2 grams LV mass(C)dI 87.7 grams/m\S\2 LV mass(C)s 178.6 grams LV mass(C)sI 102.9 grams/m\S\2 CO(Teich) 2.9 l/min CI(Teich) 1.7 l/min/m\S\2 SV(Teich) 41.8 ml SI(Teich) 24.1 ml/m\S\2 CO(cubed) 3.1 l/min CI(cubed) 1.8 l/min/m\S\2 SV(cubed) 44.8 ml SI(cubed) 25.8 ml/m\S\2 ACS 1.1 cm LA dimension 4.6 cm asc Aorta Diam 2.7 cm LVOT diam 1.8 cm LVOT area 2.6 cm\S\2 LVAd ap4 21.3 cm\S\2 LVLd ap4 7.0 cm EDV(MOD-sp4) 53.0 ml LVAs ap4 13.7 cm\S\2 LVLs ap4 6.0 cm ESV(MOD-sp4) 26.0 ml EF(MOD-sp4) 50.9 % LVAd ap2 23.2 cm\S\2 LVLd ap2 7.7 cm EDV(MOD-sp2) 60.0 ml LVAs ap2 15.1 cm\S\2 LVLs ap2 6.7 cm ESV(MOD-sp2) 30.0 ml EF(MOD-sp2) 50.0 % CO(MOD-sp4) 1.9 l/min CI(MOD-sp4) 1.1 l/min/m\S\2 SV(MOD-sp4) 27.0 ml SI(MOD-sp4) 15.6 ml/m\S\2 CO(MOD-sp2) 2.1 l/min CI(MOD-sp2) 1.2 l/min/m\S\2 SV(MOD-sp2) 30.0 ml SI(MOD-sp2) 17.3 ml/m\S\2 Doppler Measurements and Calculations MV E max cecy 121.4 cm/sec MV A max cecy 98.2 cm/sec MV E/A 1.2 MV dec time 0.17 sec Ao V2 max 146.4 cm/sec Ao max PG 8.6 mmHg Ao max PG (full) 3.8 mmHg Ao V2 mean 98.7 cm/sec Ao mean PG 4.5 mmHg Ao mean PG (full) 2.2 mmHg Ao V2 VTI 36.2 cm ELISA(I,A) 1.9 cm\S\2 ELISA(I,D) 1.9 cm\S\2 ELISA(V,A) 1.9 cm\S\2 ELISA(V,D) 1.9 cm\S\2 LV V1 max PG 4.8 mmHg LV V1 mean PG 2.4 mmHg LV V1 max 109.6 cm/sec LV V1 mean 71.1 cm/sec LV V1 VTI 26.8 cm MR max cecy 505.2 cm/sec MR max PG 102.5 mmHg SV(LVOT) 68.5 ml SI(LVOT) 39.5 ml/m\S\2 PA V2 max 79.0 cm/sec PA max PG 2.5 mmHg PI end-d cecy 91.6 cm/sec TR max cecy 257.0 cm/sec
[2016-04-02 12:19] LABS: HEMATOCRIT 32.7 % (37-47)
[2016-04-02] MEDS ORDERED: FUROSEMIDE 40 MG TAB PO ONE (12:22)
[2016-04-02] MEDS ORDERED: POTASSIUM CHLORIDE 10 MEQ TABCR PO STA (12:22)
--- NOTE | 2016-04-02 13:47 | Progress Note ---
Internal Med Progress Note Date of Service: Apr 02, 2016. Provider Documentation: SUBJECTIVE: Seen and examined at bedside. Denies any chest pain, SOB at rest, wheezing, cough. States leg edema is improving. No other complaints. OBJECTIVE: Vital Signs-as noted below Physical Exam: General Appearance:Moderately built and nourished, no apparent distress Head: normocephalic, Atraumatic Eyes: normal inspection, EOMI, PERRLA Neck: supple, Trachea midline Respiratory/Chest: Decreased breath sounds, CTA, No accessory muscle use Cardiovascular: S1, S2, No murmur Abdomen/GI:Soft, Non tender, Bowel sounds present Extremities/Musculoskelatal:normal inspection, edema Neurologic/Psych:AAOX3, grossly no focal neurological deficits Skin: normal color, warm Lab data as noted below. ASSESSMENT & PLAN: ACUTE ON CHRONIC HYPOXIC RESPIRATORY FAILURE: Likely secondary to steroid induced fluid overload and grade II diastolic dysfunction ACUTE DIASTOLIC CHF Recent discharge after being treated for COPD exacerbation Presents with SOB, bilateral leg swelling and weight gain of about 7 pounds and chest pain. On steroid taper for COPD exacerbation BNP elevated CXR:Suggestive of small left pleural effusion, CHF CTA: Negative for PE, Mild consolidative findings:on Antibiotics since last admission Venous Doppler: Negative for DVT Troponin: Negative, EKG: No sings of ischemia Cardiology consulted ECHO: Grade II diastolic dysfunction, moderate TR, EF:55-60% S/P IV Lasix while in ED Continue PO lasix Daily weight, I/Os, Fluid restriction POSSIBLE UPPER GI BLEED: H/O chronic anemia Hb dropped from 13.5 in Dec 2015 to 10.9 On Iron supplements Positive FOBT Continue PPI 40mg BID, will change to PO if stab stable Appreciate GI input Hold Aspirin/Plavix Plan for endoscopy prior to discharge if patient agreeable CHRONIC COPD Oxygen dependency:on 3L O2- her baseline CXR: Congestive failure superimposed upon chronic interstitial change On glucocorticoid taper and bronchodilators Continue PO levaquin continue O2 support Patient is a current smoker: Counselled to quit smoking- Nicotine replacement HISTORY OF CVA/TIA H/O CVA 2001 Hold ASA/Plavix secondary to GI bleed DEPRESSION/ANXIETY stable continue Celexa and Klonopin GERD continue PPI HTN stable Continue to monitor DYSLIPIDEMIA continue statin DVT PROPHYLAXIS SCDs Procedures: ECHO: No significant change compared to previous study of 01/27/14. * Normal LV chamber size with mild concentric LVH. * Normal LV systolic function, EF 55-60%. * No segmental left ventricular wall motion abnormalities are noted. * Grade II diastolic dysfunction. * The right ventricular cavity size is normal (basal dimension <4.2 cm in right ventricular apical 4-chamber view). * Aortic valve sclerosis mild, without significant aortic valvular stenosis. * Moderate tricuspid regurgitation. * Mild left atrial enlargement. Vital Signs: Date Time Temp Pulse Resp B/P Pulse Ox O2 Delivery O2 Flow Rate FiO2 04/02/16 12:00 95 Room Air 04/02/16 12:00 Room Air 04/02/16 11:24 36.6 74 16 101/59 95 2.0 04/02/16 08:00 Room Air 04/02/16 07:16 36.6 75 18 146/74 95 Nasal Cannula 2.5 04/02/16 04:56 36.5 79 16 101/64 95 04/02/16 04:00 Nasal Cannula 3.0 04/02/16 02:49 36.4 77 18 145/81 98 Nasal Cannula 2.0 04/02/16 02:09 76 16 126/77 97 Nasal Cannula 3.0 04/02/16 00:30 74 16 121/72 94 Nasal Cannula 3.0 04/01/16 23:05 72 04/01/16 22:59 97 Nasal Cannula 3.0 04/01/16 22:59 96 Nasal Cannula 3.0 04/01/16 22:59 36.9 72 20 116/62 98 Nasal Cannula 3.0 Lab Results: Results Past 24 Hours Test 04/01/16 23:05 04/01/16 23:20 04/02/16 06:52 04/02/16 12:03 Range/Units White Blood Count 8.95 9.14 4.8-10.8 K/uL Red Blood Count 3.31 3.32 4.2-5.4 M/uL Hemoglobin 10.8 10.9 10.5 12.0-16.0 g/dL Hematocrit 33.1 32.9 32.7 37-47 % Mean Corpuscular Volume 100.0 99.1 80-100 fL Mean Corpuscular Hemoglobin 32.6 32.8 25-34 pg Mean Corpuscular Hemoglobin Concent 32.6 33.1 32-36 g/dl Platelet Count 244 218 130-400 K/uL Mean Platelet Volume 9.1 9.0 7.4-10.4 fL Neutrophils (%) (Auto) 87.0 73.6 % Lymphocytes (%) (Auto) 7.3 13.3 % Monocytes (%) (Auto) 5.3 11.7 % Eosinophils (%) (Auto) 0.0 1.1 % Basophils (%) (Auto) 0.0 0.0 % Neutrophils # (Auto) 7.79 6.72 1.4-6.5 K/uL Lymphocytes # (Auto) 0.65 1.22 1.2-3.4 K/uL Monocytes # (Auto) 0.47 1.07 0.11-0.59 K/uL Eosinophils # (Auto) 0.00 0.10 0-0.5 K/uL Basophils # (Auto) 0.00 0.00 0-0.2 K/uL RDW Standard Deviation 55.6 55.3 36.4-46.3 fL RDW Coefficient of Variation 15.1 15.1 11.5-14.5 % Immature Granulocyte % (Auto) 0.4 0.3 % Immature Granulocyte # (Auto) 0.04 0.03 0.00-0.02 K/uL Prothrombin Time 11.2 9.0-12.0 SECONDS Prothromb Time International Ratio 1.0 0.9-1.1 Activated Partial Thromboplast Time 22.3 21.0-31.0 SECONDS Partial Thromboplastin Ratio 0.9 Sodium Level 142 142 136-145 mmol/L Potassium Level 4.2 3.8 3.5-5.1 mmol/L Chloride Level 109 104 98-107 mmol/L Carbon Dioxide Level 26 31 21-32 mmol/L Anion Gap 7.0 7.0 3-11 mmol/L Blood Urea Nitrogen 32 27 7-18 mg/dl Creatinine 0.86 0.80 0.60-1.20 mg/dl Est Creatinine Clear Calc Drug Dose 56.0 59.0 ml/min Estimated GFR () 77.7 84.8 Estimated GFR (Non- 67.0 73.1 BUN/Creatinine Ratio 37.0 34.0 10-20 Random Glucose 102 77 70-99 mg/dl Calcium Level 7.5 7.7 8.5-10.1 mg/dl Magnesium Level 1.9 1.8-2.4 mg/dl Total Bilirubin 0.4 0.2-1 mg/dl Direct Bilirubin 0.1 0-0.2 mg/dl Aspartate Amino Transf (AST/SGOT) 13 15-37 U/L Alanine Aminotransferase (ALT/SGPT) 19 12-78 U/L Alkaline Phosphatase 58 45-117 U/L Total Creatine Kinase 112 26-192 U/L Creatine Kinase MB 4.4 0.5-3.6 ng/ml Creatine Kinase MB Ratio 3.9 0-3.0 Pro-B-Type Natriuretic Peptide 1352 0-900 pg/ml Total Protein 5.4 6.4-8.2 gm/dl Albumin 2.5 3.4-5.0 gm/dl Lipase 467 73-393 U/L Bedside Troponin I 0.000 0-0.045 ng/ml Absolute Reticulocyte Count 0.13 0.02-0.10 10^6/uL Percent Reticulocyte Count 3.8 0.5-2.0 % Iron Level 52 35-150 mcg/dl Total Iron Binding Capacity 238 250-450 mcg/dl Transferrin 179 200-360 mg/dl Transferrin % Saturation 21 15-50 % Ferritin 25.2 8.0-388.0 ng/ml Troponin I < 0.015 0-0.045 ng/ml Vitamin B12 Level 341 211-911 pg/mL Folate > 24.00 >5.38 ng/mL
--- NOTE | 2016-04-02 14:03 | CARDIOLOGY CONSULTATION ---
DATE OF CONSULTATION: 04/02/2016 CONSULTATION REQUESTED BY: Dr. Huynh. REASON FOR CONSULTATION: Volume overload. HISTORY OF PRESENT ILLNESS: Ms. Negrete is a 71-year-old woman who presented to [facility] Emergency Department on 04/02/2016 with a complaint of lower extremity edema. The patient states that her left lower extremity is chronically slightly swollen; however, the day prior to admission she found both her lower extremities to be significantly swollen. She was just recently discharged from [facility] on April 01 after admission for COPD exacerbation, where she was on chronic steroids. Prior to presentation for this admission, the patient did have some chest discomfort but she states that it seemed to be secondary to anxiety. When she started noticing her lower extremities swelling, she became very anxious and developed chest discomfort; however, upon presentation in the Emergency Department, her chest discomfort resolved. She was given 1 dose of Lasix. Her lower extremity edema as well as her abdominal distention significantly improved and she states that she is feeling better now. She states that through this, her breathing continues to improve since her most recent COPD exacerbation. Unfortunately, she continues to smoke despite multiple direct recommendations from physicians to stop. PAST SURGICAL HISTORY: 1. Cholecystectomy. 2. Appendectomy. 3. Total abdominal hysterectomy. 4. Failed percutaneous intervention of the right lower extremity. 5. Cardiac catheterization January 2011, showing mild nonobstructive disease. 6. ERCP. MEDICAL ILLNESSES: 1. Tobacco abuse. 2. COPD. 3. Nonobstructive coronary artery disease. 4. History of CVA, on dual antiplatelet therapy. 5. Recurrent pancreatitis. 6. Carotid occlusive disease. 7. Peripheral arterial disease. 8. Dyslipidemia. 9. Myalgias. 10. Depression. FAMILY HISTORY: Remarkable for a brother who suffered a fatal myocardial infarction in his 40s. SOCIAL HISTORY: The patient is a lifelong smoker and continues to smoke. Denies any alcohol or recreational drug use. REVIEW OF SYSTEMS: As per HPI, all other review of systems reviewed and negative at this time. ALLERGIES: 1. PNEUMONIA VACCINE. 2. NITROFURANTOIN. 3. AZITHROMYCIN. MEDICATIONS AN OUTPATIENT: 1. Levaquin 500 mg daily. 2. Atorvastatin 20 mg daily. 3. Prednisone as directed. 4. Aspirin 81 mg daily. 5. Oxygen 3 liters nasal cannula. 6. DuoNeb. 7. Plavix 75 mg daily. 8. Klonopin 3 times a day. 9. Celexa daily. PHYSICAL EXAMINATION: VITAL SIGNS: Temperature 36.6, pulse 74, respiratory rate 12, blood pressure 101/59. GENERAL: Awake, alert, oriented x3, in no acute distress. HEENT: Normocephalic, atraumatic. Pupils equal, round, and reactive to light and accommodation. Extraocular muscles intact. Anicteric sclerae. Moist mucous membranes. NECK: No JVD, no bruit. CARDIOVASCULAR: Regular but distant. Unable to appreciate any murmurs, rubs or gallops. PULMONARY: Poor air movement bilaterally with scattered rhonchi. No rales or wheezing. ABDOMEN: Bowel sounds x4, soft. No rebound, guarding, tenderness. No organomegaly. EXTREMITIES: +1 bilateral lower extremity pitting edema. No clubbing or cyanosis. +2 pedal pulses bilaterally. SKIN: Warm and dry. TEST RESULTS: CTA of the chest was read as negative for PE, parenchymal infiltrative changes with mild associated consolidative change left and to a lesser extent right base, baseline parenchymal fibrosis. A 2D echocardiogram was read as normal LV chamber size with mild concentric LVH, normal LV systolic function, EF 55-60%, no segmental wall motion abnormalities were noted, grade 2 diastolic dysfunction. Right ventricular cavity size is normal with normal RV systolic function by TAPSE, mild aortic valve sclerosis without stenosis, moderate tricuspid regurgitation, mild left atrial enlargement. IMPRESSION: 1. Fluid retention likely secondary to steroid use. 2. Grade 2 diastolic dysfunction with normal left ventricular systolic function. 3. Ongoing tobacco abuse. 4. Recent chronic obstructive pulmonary disease exacerbation. RECOMMENDATIONS: Ms. Negrete was counseled that given the fact that there is no fluid in her lungs and she has no signs of right heart failure on echocardiogram, that I believe her fluid retention is most likely due to steroid use. So we will give her 1 additional dose of diuretics at this time for removal of the fluid. Otherwise, no further cardiac testing or intervention is necessary at this time.
[2016-04-02] MEDS: ATORVASTATIN 20 MG TAB PO SCH (20:55)
[2016-04-02] MEDS: CITALOPRAM 40 MG TAB PO SCH (20:55)
[2016-04-02] MEDS: CLONAZEPAM 0.5 MG TAB PO PRN (21:00)
[2016-04-02] MEDS: PANTOprazole INJ 80 MG in DEXTROSE 5% 100ML 100 ML IV SCH (21:01)
[2016-04-03] VITALS (7 sets, daily range): BP systolic 86–156; BP diastolic 57–78; PULSE 67–74; TEMP 36.6–36.9; O2SAT 90–94
[2016-04-03 06:38] LABS: COMPLETE YES; EOS % 1.9 %; HEMATOCRIT 34.4 % (37-47); IG% 0.2 %; LYMPH % 19.5 %; LYMPH ABS # 1.62 K/uL (1.2-3.4); MEAN CELL VOLUME 99.7 fL (80-100); MEAN CORPUSCULAR HGB CONC 33.1 g/dl (32-36); MEAN PLATELET VOLUME 9.3 fL (7.4-10.4); MONO % 11.2 %; NEUT % 67.2 %; PLATELET COUNT 234 K/uL (130-400); RED BLOOD COUNT 3.45 M/uL (4.2-5.4)
[2016-04-03 07:04] LABS: BUN/CREATININE RATIO 23.7 (10-20); CALCIUM 7.8 mg/dl (8.5-10.1); CREATININE 0.95 mg/dl (0.60-1.20)
[2016-04-03] MEDS: LEVOFLOXACIN 500 MG TAB PO SCH (08:50)
[2016-04-03] MEDS: NICOTINE 7 MG/24 HR TDSY TD SCH (08:51)
[2016-04-03] MEDS ORDERED: FUROSEMIDE 40 MG TAB PO SCH (09:00)
[2016-04-03] MEDS: CLONAZEPAM 0.5 MG TAB PO PRN ×2 (09:00→23:30)
[2016-04-03] MEDS: PANTOprazole INJ 80 MG in DEXTROSE 5% 100ML 100 ML IV SCH (09:03)
--- NOTE | 2016-04-03 09:16 | Gastroenterology Progress Note ---
Progress Note Date of Service: Apr 03, 2016 Subjective Pt evaluation today including: conversation w/ patient, physical exam, chart review, lab review Ms. Negrete is a 71-year-old female with a history of COPD, who presented to the Emergency Room with lower extremity edema, GI was consulted for asymptomatic dark stool. She is on iron and H&H is stable. She is without any GI complaints. She is without any chest pain or increased SOB at this time. She reports that she feels as if she is getting better from a respiratory standpoint. Colonoscopy - [address] Raghav Juares, which was within normal limits EGD - 7 years ago, several AVMs. Review of Systems Constitutional: No chills, No fever, No sweats Respiratory: + cough, + shortness of breath, + wheezing Cardiac: No PND, No chest pain Abdomen: No constipation, No diarrhea, No nausea, No pain, No vomiting Medications Current Inpatient Medications Medications (Trade) Dose Ordered Sig/Lakeshia Route Start Time Stop Time Status Last Admin Dose Admin Ioversol (Optiray 320) 125 ml UD PRN IV 04/02/16 01:15 04/06/16 01:14 Acetaminophen (Tylenol Tab) 650 mg Q4H PRN PO 04/02/16 02:15 05/02/16 02:14 Nitroglycerin (Nitrostat Tab) 0.4 mg UD PRN SL 04/02/16 02:15 05/02/16 02:14 Tramadol HCl (Ultram Tab) 25 mg Q6H PRN PO 04/02/16 02:15 05/02/16 02:14 Morphine Sulfate (MoRPHine SULFATE INJ) 4 mg Q3H PRN IV 04/02/16 02:15 04/16/16 02:14 Ondansetron HCl (Zofran Inj) 4 mg Q6H PRN IV 04/02/16 02:15 05/02/16 02:14 Nicotine (Nicoderm Cq 7 Mg Patch) 1 patch QAM TD 04/02/16 09:00 05/02/16 08:59 04/02/16 08:51 1 PATCH Miscellaneous (Remove Nicoderm Patch) 1 ea HS N/A 04/02/16 21:00 05/02/16 20:59 04/02/16 21:01 1 EA Atorvastatin Calcium (Lipitor Tab) 20 mg QPM PO 04/02/16 21:00 05/02/16 20:59 04/02/16 20:55 20 MG Citalopram Hydrobromide (celeXA TAB) 40 mg QPM PO 04/02/16 21:00 05/02/16 20:59 04/02/16 20:55 40 MG Clonazepam (Klonopin Tab) 0.5 mg TID PRN PO 04/02/16 02:15 05/02/16 02:14 04/02/16 21:00 0.5 MG Folic Acid (Folvite Tab) 1 mg QPM PO 04/02/16 21:00 05/02/16 20:59 04/02/16 20:55 1 MG Prednisone (PredniSONE TAB) 30 mg Taper DAILY PO 04/02/16 09:00 04/11/16 08:59 04/02/16 08:51 30 MG Albuterol/ Ipratropium 3 ml 3 ml Q2H PRN INH 04/02/16 02:15 05/02/16 02:14 Pantoprazole Sodium/Dextrose (Protonix Inj/D5 100ml) 120 ml @ 480 mls/hr Q12H IV 04/02/16 21:00 05/02/16 20:59 04/02/16 21:01 480 MLS/HR Levofloxacin (Levaquin Tab) 500 mg DAILY@11 PO 04/02/16 11:00 04/05/16 11:01 04/02/16 08:51 500 MG Furosemide (Lasix Tab) 40 mg QAM PO 04/03/16 09:00 05/03/16 08:59 Objective Vital Signs Date Time Temp Pulse Resp B/P Pulse Ox O2 Delivery O2 Flow Rate FiO2 04/03/16 07:27 36.6 67 16 99/61 90 Nasal Cannula 2.0 04/03/16 04:00 Nasal Cannula 3.0 04/03/16 04:00 36.7 74 20 156/75 93 Nasal Cannula 2.0 04/03/16 00:10 36.9 72 18 127/78 94 Nasal Cannula 2.0 04/03/16 00:01 Nasal Cannula 3.0 04/02/16 20:00 Nasal Cannula 3.0 04/02/16 19:14 36.8 75 16 125/63 92 Room Air 04/02/16 16:16 36.7 78 16 125/59 92 Room Air 04/02/16 16:00 95 Room Air 04/02/16 12:00 95 Room Air 04/02/16 12:00 Room Air 04/02/16 11:24 36.6 74 16 101/59 95 2.0 Physical Exam General Appearance: no apparent distress Eyes: normal inspection, PERRL ENT: hearing grossly normal Neck: supple, no adenopathy Respiratory/Chest: chest non-tender, + decreased breath sounds (coarse breath sounds) Cardiovascular: regular rate, rhythm, no gallop, no JVD, no murmur Abdomen: normal bowel sounds, non tender, soft, no organomegaly, no pulsatile mass Neurologic/Psych: no motor/sensory deficits, alert, normal mood/affect, oriented x 3 Skin: normal color, no jaundice, warm/dry, no rash Laboratory Results Last 24 Hours Test 04/02/16 12:03 04/03/16 06:10 Hemoglobin 10.5 g/dL 11.4 g/dL Hematocrit 32.7 % 34.4 % White Blood Count 8.30 K/uL Red Blood Count 3.45 M/uL Mean Corpuscular Volume 99.7 fL Mean Corpuscular Hemoglobin 33.0 pg Mean Corpuscular Hemoglobin Concent 33.1 g/dl Platelet Count 234 K/uL Mean Platelet Volume 9.3 fL Neutrophils (%) (Auto) 67.2 % Lymphocytes (%) (Auto) 19.5 % Monocytes (%) (Auto) 11.2 % Eosinophils (%) (Auto) 1.9 % Basophils (%) (Auto) 0.0 % Neutrophils # (Auto) 5.57 K/uL Lymphocytes # (Auto) 1.62 K/uL Monocytes # (Auto) 0.93 K/uL Eosinophils # (Auto) 0.16 K/uL Basophils # (Auto) 0.00 K/uL RDW Standard Deviation 55.1 fL RDW Coefficient of Variation 15.0 % Immature Granulocyte % (Auto) 0.2 % Immature Granulocyte # (Auto) 0.02 K/uL Sodium Level 143 mmol/L Potassium Level 4.0 mmol/L Chloride Level 103 mmol/L Carbon Dioxide Level 34 mmol/L Anion Gap 6.0 mmol/L Blood Urea Nitrogen 23 mg/dl Creatinine 0.95 mg/dl Est Creatinine Clear Calc Drug Dose 49.8 ml/min Estimated GFR () 68.9 Estimated GFR (Non- 59.4 BUN/Creatinine Ratio 23.7 Random Glucose 75 mg/dl Calcium Level 7.8 mg/dl Pro-B-Type Natriuretic Peptide 1318 pg/ml Assessment and Plan Ms. Negrete is a 71 year old female with O2 dependent COPD with lower extremity edema likely related to congestive heart failure. GI was asked to assess black stools. Patient reports that these have been intermittent since she has started iron therapy. Her HGB is stable. Protonix 40 mg BID Patient would not like to proceed with an inpatient EGD GI recommends to monitor stools & blood count. GI to sign off. Please call with any questions. Attg addendum: I interviewed and examined pt, reviewed chart and labs. Pt admit with ? melena, chronic anemia. I spoke to pt about porssibility of EGD and cscopy; she does not wish to proceed with these porcedures . Will sign off.
--- NOTE | 2016-04-03 10:43 | Progress Note ---
Internal Med Progress Note Date of Service: Apr 03, 2016. Provider Documentation: SUBJECTIVE: Seen and examined at bedside. Feels better. States having intermittent cough with clear expectoration. Denies any chest pain, SOB. No other complaints. OBJECTIVE: Vital Signs-as noted below Physical Exam: General Appearance:Moderately built and nourished, no apparent distress Head: normocephalic, Atraumatic Eyes: normal inspection, EOMI, PERRLA Neck: supple, Trachea midline Respiratory/Chest: Decreased breath sounds, CTA, No accessory muscle use Cardiovascular: S1, S2, No murmur Abdomen/GI:Soft, Non tender, Bowel sounds present Extremities/Musculoskelatal:normal inspection, 2+ edema Neurologic/Psych:AAOX3, grossly no focal neurological deficits Skin: normal color, warm Lab data as noted below. ASSESSMENT & PLAN: ACUTE ON CHRONIC HYPOXIC RESPIRATORY FAILURE: Likely secondary to steroid induced fluid overload No signs of right heart failure Chronic Grade II diastolic dysfunction Recent discharge after being treated for COPD exacerbation Presents with SOB, bilateral leg swelling and weight gain of about 7 pounds and chest pain. On steroid taper for COPD exacerbation BNP elevated CXR:Suggestive of small left pleural effusion, CHF CTA: Negative for PE, Mild consolidative findings:on Antibiotics since last admission Venous Doppler: Negative for DVT Troponin: Negative, EKG: No sings of ischemia Appreciate Cardiology input ECHO: Grade II diastolic dysfunction, moderate TR, EF:55-60% S/P IV Lasix Continue PO lasix Daily weight, I/Os, Fluid restriction POSSIBLE UPPER GI BLEED: H/O chronic anemia Hb stable:11.4 today On Iron supplements Positive FOBT Switch to PO 40mg BID Appreciate GI input Will resume Aspirin/Plavix Refuses to get EGD CHRONIC COPD Oxygen dependency:on 3L O2- her baseline CXR: Congestive failure superimposed upon chronic interstitial change On glucocorticoid taper and bronchodilators Continue PO levaquin continue O2 support Patient is a current smoker: Counselled to quit smoking- Nicotine replacement HISTORY OF CVA/TIA H/O CVA 2001 Hold ASA/Plavix secondary to GI bleed DEPRESSION/ANXIETY stable continue Celexa and Klonopin GERD continue PPI HTN stable Continue to monitor DYSLIPIDEMIA continue statin DVT PROPHYLAXIS SCDs Disposition: Will transfer to medical floor Likely discharge in next 48 hours. Procedures: ECHO: No significant change compared to previous study of 12/2/14. * Normal LV chamber size with mild concentric LVH. * Normal LV systolic function, EF 55-60%. * No segmental left ventricular wall motion abnormalities are noted. * Grade II diastolic dysfunction. * The right ventricular cavity size is normal (basal dimension <4.2 cm in right ventricular apical 4-chamber view). * Aortic valve sclerosis mild, without significant aortic valvular stenosis. * Moderate tricuspid regurgitation. * Mild left atrial enlargement. Vital Signs: Date Time Temp Pulse Resp B/P Pulse Ox O2 Delivery O2 Flow Rate FiO2 04/03/16 07:27 36.6 67 16 99/61 90 Nasal Cannula 2.0 04/03/16 04:00 Nasal Cannula 3.0 04/03/16 04:00 36.7 74 20 156/75 93 Nasal Cannula 2.0 04/03/16 00:10 36.9 72 18 127/78 94 Nasal Cannula 2.0 04/03/16 00:01 Nasal Cannula 3.0 04/02/16 20:00 Nasal Cannula 3.0 04/02/16 19:14 36.8 75 16 125/63 92 Room Air 04/02/16 16:16 36.7 78 16 125/59 92 Room Air 04/02/16 16:00 95 Room Air 04/02/16 12:00 95 Room Air 04/02/16 12:00 Room Air 04/02/16 11:24 36.6 74 16 101/59 95 2.0 Lab Results: Results Past 24 Hours Test 04/02/16 12:03 04/03/16 06:10 Range/Units Hemoglobin 10.5 11.4 12.0-16.0 g/dL Hematocrit 32.7 34.4 37-47 % White Blood Count 8.30 4.8-10.8 K/uL Red Blood Count 3.45 4.2-5.4 M/uL Mean Corpuscular Volume 99.7 80-100 fL Mean Corpuscular Hemoglobin 33.0 25-34 pg Mean Corpuscular Hemoglobin Concent 33.1 32-36 g/dl Platelet Count 234 130-400 K/uL Mean Platelet Volume 9.3 7.4-10.4 fL Neutrophils (%) (Auto) 67.2 % Lymphocytes (%) (Auto) 19.5 % Monocytes (%) (Auto) 11.2 % Eosinophils (%) (Auto) 1.9 % Basophils (%) (Auto) 0.0 % Neutrophils # (Auto) 5.57 1.4-6.5 K/uL Lymphocytes # (Auto) 1.62 1.2-3.4 K/uL Monocytes # (Auto) 0.93 0.11-0.59 K/uL Eosinophils # (Auto) 0.16 0-0.5 K/uL Basophils # (Auto) 0.00 0-0.2 K/uL RDW Standard Deviation 55.1 36.4-46.3 fL RDW Coefficient of Variation 15.0 11.5-14.5 % Immature Granulocyte % (Auto) 0.2 % Immature Granulocyte # (Auto) 0.02 0.00-0.02 K/uL Sodium Level 143 136-145 mmol/L Potassium Level 4.0 3.5-5.1 mmol/L Chloride Level 103 98-107 mmol/L Carbon Dioxide Level 34 21-32 mmol/L Anion Gap 6.0 3-11 mmol/L Blood Urea Nitrogen 23 7-18 mg/dl Creatinine 0.95 0.60-1.20 mg/dl Est Creatinine Clear Calc Drug Dose 49.8 ml/min Estimated GFR () 68.9 Estimated GFR (Non- 59.4 BUN/Creatinine Ratio 23.7 10-20 Random Glucose 75 70-99 mg/dl Calcium Level 7.8 8.5-10.1 mg/dl Pro-B-Type Natriuretic Peptide 1318 0-900 pg/ml
--- NOTE | 2016-04-03 11:58 | Cardiology Follow-Up ---
Subjective Subjective Date of Service: Apr 03, 2016. Pt evaluation today including: conversation w/ patient, physical exam, chart review, lab review, review of studies, review of inpatient medication list Additional Details: Pt seen and examined, states that she's feeling ok today. Swelling resolved. Denies cp, sob, palpitations, lightheadedness or dizziness. Tele reviewed: sinus rhythm with a 5 beat run of PSVT. Problem List Medical Problems: (1) Chest pain Status: Acute (2) CHF (congestive heart failure) Status: Acute (3) COPD with acute bronchitis Status: Acute (4) Failure of outpatient treatment Status: Acute (5) Lower extremity edema Status: Acute (6) SOB (shortness of breath) Status: Acute Review of Systems Constitutional: No chills, No fever, No sweats Respiratory: + cough, + shortness of breath, + wheezing Cardiac: No PND, No chest pain Abdomen: + pain Objective Vital Signs Last Vital Signs Documentation Date Time Temp Pulse Resp B/P Pulse Ox O2 Delivery O2 Flow Rate FiO2 04/03/16 08:00 Nasal Cannula 3.0 04/03/16 07:27 36.6 67 16 99/61 90 Physical Exam: General Appearance: WD/WN, no apparent distress Eyes: bilateral eyes EOMI, bilateral eyes PERRL, bilateral eyes normal inspection ENT: normal ENT inspection, hearing grossly normal, pharynx normal Neck: supple, no adenopathy, thyroid normal, no JVD, no carotid bruits, trachea midline Respiratory/Chest: chest non-tender, no respiratory distress, no accessory muscle use, + decreased breath sounds Cardiovascular: regular rate, rhythm, no edema, no JVD, no murmur, + gallop/S4 Abdomen: normal bowel sounds, non tender, soft, no organomegaly, + tenderness Extremities: normal inspection, no pedal edema, no calf tenderness Neurologic/Psychiatric: animal feeder II-XII nml as tested, no motor/sensory deficits, alert, normal mood/affect, oriented x 3 Skin: normal color, warm/dry, no rash Lymphatic: no adenopathy Assessment and Plan 1. lower extremity edema no cardiac cause likely secondary fluid retention with steroid use diuresed well will change lasix to prn and would send home with a script for it. ok to d/c tele from cardiac standpoint
[2016-04-03] MEDS ORDERED: FERROUS SULFATE 325 MG TAB PO SCH (21:00)
[2016-04-03] MEDS ORDERED: ASPIRIN 81 MG ECTAB PO SCH (21:00)
[2016-04-03] MEDS ORDERED: CLOPIDOGREL BISULFATE 75 MG TAB PO SCH (21:00)
[2016-04-03] MEDS: PANTOprazole SOD 40 MG TAB PO SCH (21:14)
[2016-04-03] MEDS: CITALOPRAM 40 MG TAB PO SCH (21:15)
[2016-04-03] MEDS: ATORVASTATIN 20 MG TAB PO SCH (21:15)
[2016-04-04 00:22] VITALS: BP 155/76; PULSE 81; TEMP 36.7; O2SAT 91
[2016-04-04 06:39] LABS: COMPLETE YES; HEMATOCRIT 35.8 % (37-47); IG% 0.4 %; LYMPH % 18.2 %; LYMPH ABS # 1.87 K/uL (1.2-3.4); MEAN CELL VOLUME 99.7 fL (80-100); MEAN CORPUSCULAR HEMOGLOBIN 32.9 pg (25-34); MEAN PLATELET VOLUME 9.4 fL (7.4-10.4); MONO % 12.7 %; NEUT % 66.7 %; PLATELET COUNT 234 K/uL (130-400); RED BLOOD COUNT 3.59 M/uL (4.2-5.4); WHITE BLOOD COUNT 10.26 K/uL (4.8-10.8)
[2016-04-04 07:14] LABS: BUN/CREATININE RATIO 28.5 (10-20); CALCIUM 7.9 mg/dl (8.5-10.1); CREATININE 0.81 mg/dl (0.60-1.20); POTASSIUM 3.2 mmol/L (3.5-5.1)
[2016-04-04] MEDS: NICOTINE 7 MG/24 HR TDSY TD SCH (07:19)
[2016-04-04] MEDS: LEVOFLOXACIN 500 MG TAB PO SCH (07:20)
[2016-04-04] MEDS: PANTOprazole SOD 40 MG TAB PO SCH (07:20)
[2016-04-04 07:47] VITALS: BP 155/74; PULSE 75; TEMP 36.8; O2SAT 92
[2016-04-04] MEDS ORDERED: FUROSEMIDE 40 MG TAB PO PRN (08:00)
[2016-04-04] MEDS ORDERED: UMEC1INH INH (11:40)
[2016-04-04] MEDS ORDERED: PRED10TA PO (11:40)
[2016-04-04] MEDS ORDERED: LSX40 PO (11:40)
--- NOTE | 2016-04-04 11:49 | Discharge Instructions ---
Discharge Instructions Admission Reason for Admission: Lower extremity edema Discharge Discharge Diagnosis / Problem: Lower extremity edema Discharge Goals Goal(s): Improve disease control Activity Recommendations Activity Limitations: resume your previous activity . Instructions / Follow-Up Instructions / Follow-Up Please keep your scheduled follow up appointment with Family Medicine Dr. Quintanilla on April 06 at 10:50am. Please only take the Lasix (water pill) once a day as needed for lower leg swelling. You have 5 more days of your prednisone (steroid) taper: 20mg on 04/05/16 and and then 10mg on 04/07/16, 04/08/16 and 04/09/16. You are finished with your antibiotic Levofloxacin. Current Hospital Diet Patient's current hospital diet: Regular Diet Discharge Diet Recommended Diet: Regular Diet Pending Studies Studies pending at discharge: no Medical Emergencies . Who to Call and When: Medical Emergencies: If at any time you feel your situation is an emergency, please call 911 immediately. . Non-Emergent Contact Non-Emergency issues call your: Primary Care Provider . . "Provider Documentation" section prepared by Allyson Peck. VTE Core Measure Inpt VTE Proph given/why not?: SCD's
[2016-04-04 12:12] VITALS: BP 155/74; PULSE 75; TEMP 36.8; O2SAT 92
--- NOTE | 2016-04-04 19:25 | Discharge Summary ---
Discharge Summary Admission Date: Apr 02, 2016 at 01:38 Discharge Date: Apr 04, 2016 Discharge Disposition: Home with services Principal Diagnosis: LE edema, likely 2/2 prednisone Procedures: CT chest 1. Study is negative for pulmonary embolus. 2. Parenchymal infiltrative change with mild associated consolidative change left and to a lesser extent right base. 3. Baseline parenchymal fibrosis. LE doppler No DVT within the right or left lower extremity. TTE * No significant change compared to previous study of 01/27/14. * Normal LV chamber size with mild concentric LVH. * Normal LV systolic function, EF 55-60%. * No segmental left ventricular wall motion abnormalities are noted. * Grade II diastolic dysfunction. * The right ventricular cavity size is normal (basal dimension <4.2 cm in right ventricular apical 4-chamber view). * Aortic valve sclerosis mild, without significant aortic valvular stenosis. * Moderate tricuspid regurgitation. * Mild left atrial enlargement. Consultations: Gastroenterology Cardiology Medication Reconciliation New Medications: Furosemide (Furosemide) 40 Mg Tab 40 MG PO QAM PRN for swelling for 30 Days, #30 TAB Changed Medications: Prednisone (Prednisone) 10 Mg Tab 10 MG PO UD for 9 Days, #18 (Changed from: TAKE 3 TABS DAILY X 3 DAYS THEN 2 TABS DAILY X3 DAYS, 1 TAB DAILY X3 DAYS THEN STOP ) TAKE 2 TABS DAILY X 2 DAYS THEN 1 TAB DAILY X3 DAYS THEN STOP Umeclidinium [place] (Incruse Ellipta) 62.5 Mcg/Inh Inh 1 PUFF INH DAILY for 30 Days (Changed from: Unknown Dose ) Continued Medications: Albuterol Sulfate (Proair Respiclick) 108 Mcg/Act Aer 2 PUFFS INH QID Aspirin (Aspirin Ec) 81 Mg Tab 81 MG PO QPM Atorvastatin (Lipitor) 20 Mg Tab 20 MG PO QPM, TAB Cholecalciferol (Vitamin D 1000 Unit) 1,000 Unit Cap 1000 INTER.UNIT PO QPM Citalopram Hydrobromide (Citalopram Hydrobromide) 40 Mg Tab 40 MG PO QPM Clonazepam (Klonopin) 0.5 Mg Tab 0.5 MG PO TID PRN for Anxiety Clopidogrel (Plavix) 75 Mg Tab 75 MG PO QPM, 0 Refills Denosumab (Prolia) 60 Mg/Ml Lia 60 MG SC Q6 MONTHS Ferrous Sulfate (Ferrous Sulfate) 325 Mg Tab 187.5 MG PO QPM Fluticasone Propionate (Nasal) (Flonase Allergy Relief) 50 Mcg/Act Spr 2 SPRAY TAY DAILY PRN for PRN Folic Acid (Folvite) 1 Mg Tab 1 MG PO QPM Hydrocodone W/ Homatropine (Hycodan 5/1.5MG 5 Ml) 1 Syp Syp 5 ML PO Q4H PRN for PRN, ML Hyoscyamine Sulfate (Hyoscyamine Sulfate Odt) 0.125 Mg Tab 0.125 MG SL Q4 PRN for ABDOMINAL PAIN Ipratropium-Albuterol (Duoneb) 3 Ml Nebu 1 TREATMENT INH Q6 PRN for SOB/Wheezing, INHA Nicotine (Nicotine) 1 Patch Tdsy 1 PATCH TD QAM for 30 Days, #30 Nitroglycerin (Nitrostat) 0.4 Mg Tab 0.4 MG UT UD PRN for Chest Pain, [address] TABLET UNDER THE TONGUE IF NEEDED FOR CHEST PAIN. MAY REPEAT 3 TIMES. Omeprazole (Prilosec) 20 Mg Capcr 20 MG PO DAILY, CAP Oxygen (Oxygen) Gas 3 LITERS NA DAILY and HS Oyster Shell (Calcium) 500 Mg Tab 500 MG PO BID Potassium Gluconate (Potassium Gluconate) 550 Mg Tab 550 MG PO QPM Discontinued Medications: Levofloxacin (Levaquin) 500 Mg Tab 500 MG PO DAILY for 4 Days, #4 Admission Information HPI (per Admitting provider): Medical history is significant for chronic respiratory failure secondary to COPD on home O2, ongoing tobacco abuse, history of CVA as per records, hypertension, history of ESBL E. 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 Recent confinement a few days ago for COPD exacerbation. Patient discharged on Prednisone and Levaquin course. Breathing, cough sx improved upon discharge yesterday AM. Yesterday afternoon, patient noted bilateral leg swelling more than usual. Patient developed achy L sided chest pain and some shortness of breath. No unusual cough symptoms. Patient admits that abdomen feels bloated as well. Admits to dark stools for months now, which she attributes to iron. Patient denies abdominal pain or distressing heartburn sx. Patient was brought to Emergency Room. Upon arrival at the Emergency Room, chest pain was resolving. Received Lasix for possible CHF. Physical Exam (per Admitting): VITAL SIGNS: Blood pressure was noted be 160/82, pulse rate 72, RR 18, T 37, O2 sats 96 on 3 liters. GENERAL: Looks older than stated age. No respiratory distress. SKIN: Pallor. HEENT: Pale palpebral conjunctivae. Dry mucosa. nasal cannula in place NECK: Supple CHEST: Occasional rhonchi, wheeze. HEART: Regular rate and rhythm. ABDOMEN: Some distention, nontender. RECTAL: Intact sphincter, dark stool, heme positive. EXTREMITIES: roel lower extremity edema, no tenderness. NEUROLOGIC: No gross focality. Hospital Course ACUTE ON CHRONIC HYPOXIC RESPIRATORY FAILURE: Likely secondary to steroid induced fluid overload No signs of right heart failure Chronic Grade II diastolic dysfunction Recent discharge after being treated for COPD exacerbation; was discharged on steroid taper for COPD exacerbation Presented with SOB, bilateral leg swelling and weight gain of about 7 pounds and chest pain BNP elevated on admission CXR on admission suggestive of small left pleural effusion CTA: Negative for PE, Mild consolidative findings Venous Doppler: Negative for DVT Troponin: Negative, EKG: No sings of ischemia Cardiology consulted ECHO: Grade II diastolic dysfunction, moderate TR, EF:55-60% Diuresed with Lasix with resolution of symptoms; discharged with prescription for daily Lasix PRN POSSIBLE UPPER GI BLEED: H/O chronic anemia On Iron supplements Positive FOBT GI consulted Resumed Aspirin/Plavix Patient refused endoscopy CHRONIC COPD Oxygen dependent:on 3L O2 CXR: Congestive failure superimposed upon chronic interstitial change Continued glucocorticoid taper and bronchodilators Completed PO levaquin Patient is a current smoker: Counselled to quit smoking- Nicotine replacement HISTORY OF CVA/TIA H/O CVA 2001 Resumed ASA/Plavix DEPRESSION/ANXIETY Continued Celexa and Klonopin GERD Continued PPI DYSLIPIDEMIA Continued statin Patient deemed stable for discharge home with home health. PE on discharge: General- awake; alert; NAD Eyes- EOMI; no scleral icterus Neck- no stridor; trachea midline Lungs- CTA bilaterally; no wheezes/crackles Heart- RRR; no m/r/g Abdomen- soft; NTND; nBS Back- no gross abnormalities Extremities- no c/c/e; no deformity Neuro- no gross focal deficits Skin- no appreciable rash or bruise . Total time spent on discharge = This includes examination of the patient, discharge planning, medication reconciliation, and communication with other providers. Discharge Instructions Discharge Instructions Admission Reason for Admission: Lower extremity edema Discharge Discharge Diagnosis / Problem: Lower extremity edema Discharge Goals Goal(s): Improve disease control Activity Recommendations Activity Limitations: resume your previous activity . Instructions / Follow-Up Instructions / Follow-Up Please keep your scheduled follow up appointment with Family Medicine Dr. Quintanilla on April 06 at 10:50am. Please only take the Lasix (water pill) once a day as needed for lower leg swelling. You have 5 more days of your prednisone (steroid) taper: 20mg on 04/05/16 and and then 10mg on 04/07/16, 04/08/16 and 04/09/16. You are finished with your antibiotic Levofloxacin. Current Hospital Diet Patient's current hospital diet: Regular Diet Discharge Diet Recommended Diet: Regular Diet Pending Studies Studies pending at discharge: no Medical Emergencies . Who to Call and When: Medical Emergencies: If at any time you feel your situation is an emergency, please call 911 immediately. . Non-Emergent Contact Non-Emergency issues call your: Primary Care Provider . . "Provider Documentation" section prepared by Allyson Peck. VTE Core Measure Inpt VTE Proph given/why not?: SCD's Additional Copies To Lena Quintanilla D.O.
[2016-05-31] MEDS ORDERED: AMOX1TAB43 PO (16:58)
[2016-05-31] MEDS ORDERED: TPRSR25 PO (16:58)
[2016-05-31] MEDS ORDERED: PRD20 PO (16:58)
[2016-05-31] MEDS ORDERED: LSX40 PO (16:58)
== END 2016-04-04 13:25 | disposition home health service (06) | DRG 189 ==
LOC: ENRESERVTM → ENRESERVDT → EDBD 22:42 → C.EDB 22:43 → C.2T 04-02 01:38 → UNDOADMIN 04-02 01:38 → C.4E 04-03 12:41
PROVIDERS: ADMIT Internal Medicine; ATTEND Internal Medicine
DX: J96.20 Acute and chronic respiratory failure, unspecified whether with hypoxia or hypercapnia (principal); K86.2 Cyst of pancreas; J44.1 Chronic obstructive pulmonary disease with (acute) exacerbation; I50.32 Chronic diastolic (congestive) heart failure; E78.00 Pure hypercholesterolemia, unspecified; I10 Essential (primary) hypertension; R60.0 Localized edema; F32.9 Major depressive disorder, single episode, unspecified; F17.210 Nicotine dependence, cigarettes, uncomplicated; E55.9 Vitamin D deficiency, unspecified; I73.9 Peripheral vascular disease, unspecified; M81.0 Age-related osteoporosis without current pathological fracture; Z83.3 Family history of diabetes mellitus; Z79.82 Long term (current) use of aspirin; T38.0X5A Adverse effect of glucocorticoids and synthetic analogues, initial encounter; J40 Bronchitis, not specified as acute or chronic; Z86.73 Personal history of transient ischemic attack (TIA), and cerebral infarction without residual deficits; I36.1 Nonrheumatic tricuspid (valve) insufficiency; I25.10 Atherosclerotic heart disease of native coronary artery without angina pectoris; J84.10 Pulmonary fibrosis, unspecified

== ENCOUNTER 2016-05-29 15:07 | Inpatient (IN) | payer OTHER ==
[~2016-05-29] VITALS: Ht 160 cm; Wt 67.8 kg
[~2016-05-29 15:07] MED LIST changes: -LEVO1TAB33 PO; +LSX40 PO; -NYSS5 PO; -UMEC1INH; +UMEC1INH INH
[2016-05-29] MEDS ORDERED: METHYLPREDNISOLONE 125 MG VIAL IV STA (16:30)
[2016-05-29] MEDS ORDERED: ALBUT/IPRATROP 3MG/0.5MG NEB 3 ML VIAL INH STA (16:30)
--- NOTE | 2016-05-29 16:51 | DIAGNOSTIC IMAGING REPORT ---
CHEST ONE VIEW PORTABLE CLINICAL HISTORY: Respiratory distress COMPARISON STUDY: 04/01/2016 FINDINGS: The heart is borderline enlarged. There are dense right paratracheal lymph node calcifications. Bilateral hilar calcifications are visualized. There is been resolution of the previous described interstitial edema. There is no focal pulmonary consolidation. There are no significant pleural effusions. There is baseline mild chronic interstitial thickening.[ IMPRESSION: No active disease in the chest. Electronically signed by: David Kirk M.D. 05/29/2016 4:50 PM Dictated Date/Time: 05/29/2016 4:48 PM
--- NOTE | 2016-05-29 16:55 | EMERGENCY ROOM VISIT NOTE ---
History First contact with patient: 16:07 Chief Complaint: SHORTNESS OF BREATH Stated Complaint: EDEMA,SOB,BLURRY VISION Nursing Triage Summary: patient c/o "water retention and edema" in ankles and feet as well as Shortness of breath. "I've been gaining weight steadily...-5-10 pounds over the last week or two." History of Present Illness The patient is a 71 year old female w/ Hx of COPD on Home O2 2-3 L at night, Chronic Diastolic CHF (EF 55-60%) on Lasix 40 mg Daily, HTN , CVA who presents to the Emergency with worsening LE Edema, And SOB. Patient reports for the last few days, LE edema has worsened. She has gained approximately 5-10 lbs over the last 1-2 wks. She reprots PND, Orthopnea, lightheadedness, palpitation but denies syncope. Patient also reports she saw her PCP las week and was placed on Prednisone for her COPD. She also reports constipation w/o bowel movement for a few days. Pt denies headache, fevers, chest pain, nausea, vomiting, diarrhea, pain with urination, and melena Patient was admitted Apr.02 for CHF exacerbation. Echo was done at the time showing Grade II diastolic Dysfunction and also admitted for on for COPD exacerbation. Review of Systems See HPI for pertinent positives & negatives. A total of 10 systems reviewed and were otherwise negative. Past Medical/Surgical History Medical Problems: (1) Cerebrovascular disease (2) CHF exacerbation (3) Chronic obstructive lung disease (4) Chronic pancreatitis (5) Depression (6) Essential hypertension (7) Hyperlipidemia (8) Iron deficiency anemia (9) Osteoporosis (10) Peripheral vascular disease (11) Pseudocyst of pancreas (12) Respiratory failure, acute (13) Sleep apnea (14) Tobacco user (15) Vitamin D deficiency Surgical Problems: (1) Status post appendectomy (2) Status post cholecystectomy (3) Status post ERCP (4) Status post hernia repair (5) Status post hysterectomy Family History Diabetes mellitus FATHER FHx: gallbladder disease Heart disease BROTHER (onset age 46, age 58) Hypertension Kidney stones Lung disease Stroke FATHER MOTHER Social History Smoking Status: Current Every Day Smoker Alcohol Use: none Drug Use: none Marital Status: single, Housing Status: lives with family Occupation Status: retired Current/Historical Medications Scheduled Albuterol Sulfate (Proair Respiclick), 2 PUFFS INH QID Aspirin (Aspirin Ec), 81 MG PO QPM Atorvastatin (Lipitor), 20 MG PO QPM Cholecalciferol (Vitamin D 1000 Unit), 1,000 INTER.UNIT PO QPM Citalopram Hydrobromide (Citalopram Hydrobromide), 40 MG PO QPM Clopidogrel (Plavix), 75 MG PO QPM Denosumab (Prolia), 60 MG SC Q6 MONTHS Ferrous Sulfate (Ferrous Sulfate), 187.5 MG PO QPM Folic Acid (Folvite), 1 MG PO QPM Nicotine (Nicotine), 1 PATCH TD QAM Omeprazole (Prilosec), 20 MG PO DAILY Oxygen (Oxygen), 3 LITERS NA DAILY and HS Oyster Shell (Calcium), 500 MG PO BID Potassium Gluconate (Potassium Gluconate), 550 MG PO QPM Prednisone (Prednisone), 10 MG PO UD Umeclidinium [place] (Incruse Ellipta), 1 PUFF INH DAILY Scheduled PRN Clonazepam (Klonopin), 0.5 MG PO TID PRN for Anxiety Fluticasone Propionate (Nasal) (Flonase Allergy Relief), 2 SPRAY TAY DAILY PRN for PRN Furosemide (Furosemide), 40 MG PO QAM PRN for swelling Hydrocodone W/ Homatropine (Hycodan 5/1.5MG 5 Ml), 5 ML PO Q4H PRN for PRN Hyoscyamine Sulfate (Hyoscyamine Sulfate Odt), 0.125 MG SL Q4 PRN for ABDOMINAL PAIN Ipratropium-Albuterol (Duoneb), 1 TREATMENT INH Q6 PRN for SOB/Wheezing Nitroglycerin (Nitrostat), 0.4 MG UT UD PRN for Chest Pain Allergies Coded Allergies: Ciprofloxacin (Verified Allergy, Mild, ITCHY, 05/29/16) Azithromycin (Verified Allergy, Unknown, unknown, 05/29/16) Influenza Vaccines (Unverified Allergy, Unknown, HIVES ON THE SITE, 05/29/16 ) Nitrates, Organic (Verified Allergy, Unknown, UNSURE; BUT PATIENT TAKES NITROSTAT PER ADMIT MED REC., 05/29/16) Nitrofurantoin (Verified Allergy, Unknown, UNSURE, 05/29/16) Pneumococcal Polysaccharides (Verified Allergy, Unknown, unk, 05/29/16) Physical Exam Vital Signs Date Time Temp Pulse Resp B/P Pulse Ox O2 Delivery O2 Flow Rate FiO2 05/29/16 23:22 75 05/29/16 22:47 74 20 145/74 91 Nasal Cannula 3.0 05/29/16 19:52 77 16 180/86 94 3.0 05/29/16 17:10 75 16 189/84 92 Room Air 05/29/16 16:40 95 Room Air 05/29/16 16:15 95 Room Air 05/29/16 16:15 75 05/29/16 15:15 37.3 82 22 191/85 96 Room Air 05/29/16 15:15 93 Room Air Physical Exam GENERAL: alert, well appearing, well nourished, no distress, non-toxic EYE EXAM: normal conjunctiva, PERRL and EOM's grossly intact NECK: supple, no nuchal rigidity, no adenopathy, non-tender LUNGS: coarse breath sounds roel, roel wheeze. Normal chest wall mechanics HEART: systolic murmur, S1 normal and S2 normal ABDOMEN: abdomen soft, non-tender, normo-active bowel sounds, no masses, no rebound or guarding. BACK: Back is symmetrical on inspection and there is no deformity, no midline tenderness, no CVA tenderness. SKIN: no rashes and no bruising UPPER EXTREMITIES: upper extremities are grossly normal. LOWER EXTREMITIES: 1+ Edema Roel NEURO EXAM: Normal sensorium, cranial nerves II-XII grossly intact, normal speech, no gross weakness of arms, no gross weakness of legs. Medical Decision & Procedures Laboratory Results 05/29/16 17:06 Red Blood Count 3.67, Mean Corpuscular Volume 98.6, Mean Corpuscular Hemoglobin 31.3, Mean Corpuscular Hemoglobin Concent 31.8, Mean Platelet Volume 9.3, Neutrophils (%) (Auto) 79.1, Lymphocytes (%) (Auto) 10.7, Monocytes (%) (Auto) 9.6, Eosinophils (%) (Auto) 0.3, Basophils (%) (Auto) 0.1, Neutrophils # (Auto) 7.03, Lymphocytes # (Auto) 0.95, Monocytes # (Auto) 0.85, Eosinophils # (Auto) 0.03, Basophils # (Auto) 0.01 05/29/16 17:06 Test 05/29/16 17:06 05/29/16 17:35 White Blood Count 8.89 K/uL (4.8-10.8) Red Blood Count 3.67 M/uL (4.2-5.4) Hemoglobin 11.5 g/dL (12.0-16.0) Hematocrit 36.2 % (37-47) Mean Corpuscular Volume 98.6 fL (80-100) Mean Corpuscular Hemoglobin 31.3 pg (25-34) Mean Corpuscular Hemoglobin Concent 31.8 g/dl (32-36) Platelet Count 279 K/uL (130-400) Mean Platelet Volume 9.3 fL (7.4-10.4) Neutrophils (%) (Auto) 79.1 % Lymphocytes (%) (Auto) 10.7 % Monocytes (%) (Auto) 9.6 % Eosinophils (%) (Auto) 0.3 % Basophils (%) (Auto) 0.1 % Neutrophils # (Auto) 7.03 K/uL (1.4-6.5) Lymphocytes # (Auto) 0.95 K/uL (1.2-3.4) Monocytes # (Auto) 0.85 K/uL (0.11-0.59) Eosinophils # (Auto) 0.03 K/uL (0-0.5) Basophils # (Auto) 0.01 K/uL (0-0.2) RDW Standard Deviation 55.7 fL (36.4-46.3) RDW Coefficient of Variation 15.4 % (11.5-14.5) Immature Granulocyte % (Auto) 0.2 % Immature Granulocyte # (Auto) 0.02 K/uL (0.00-0.02) Anion Gap 8.0 mmol/L (3-11) Est Creatinine Clear Calc Drug Dose 60.6 ml/min Estimated GFR () 88.8 Estimated GFR (Non- 76.6 BUN/Creatinine Ratio 34.0 (10-20) Calcium Level 8.3 mg/dl (8.5-10.1) Magnesium Level 2.3 mg/dl (1.8-2.4) Total Bilirubin 0.2 mg/dl (0.2-1) Aspartate Amino Transf (AST/SGOT) 11 U/L (15-37) Alanine Aminotransferase (ALT/SGPT) 16 U/L (12-78) Alkaline Phosphatase 81 U/L (45-117) Total Creatine Kinase 52 U/L (26-192) Creatine Kinase MB 1.6 ng/ml (0.5-3.6) Creatine Kinase MB Ratio 3.1 (0-3.0) Troponin I 0.017 ng/ml (0-0.045) Pro-B-Type Natriuretic Peptide 2984 pg/ml (0-900) Total Protein 6.5 gm/dl (6.4-8.2) Albumin 2.9 gm/dl (3.4-5.0) Globulin 3.6 gm/dl (2.5-4.0) Albumin/Globulin Ratio 0.8 (0.9-2) Urine Color YELLOW Urine Appearance CLEAR (CLEAR) Urine pH 5.5 (4.5-7.5) Urine Specific [place] 1.027 (1.000-1.030) Urine Protein NEG (NEG) Urine Glucose (UA) NEG (NEG) Urine Ketones NEG (NEG) Urine Occult Blood NEG (NEG) Urine Nitrite NEG (NEG) Urine Bilirubin NEG (NEG) Urine Urobilinogen NEG (NEG) Urine Leukocyte Esterase NEG (NEG) Medications Administered Medications (Trade) Dose Ordered Sig/[place]akes[place]ia Route Start Time Stop Time Status Last Admin Dose Admin Albuterol/ Ipratropium (Duoneb) 3 ml NOW STAT INH 05/29/16 16:30 05/29/16 16:32 DC 05/29/16 17:20 3 ML Methylprednisolone Sodium Succinate (Solu-Medrol IV) 125 mg NOW STAT IV 05/29/16 16:30 05/29/16 16:32 DC 05/29/16 17:20 125 MG Nicotine (Nicoderm Cq 21MG Patch) 1 patch ONE STAT TD 05/29/16 18:41 05/29/16 18:42 DC 05/29/16 19:54 1 PATCH Oxycodone HCl 5 mg 5 mg NOW STAT PO 05/29/16 18:10 05/29/16 18:11 DC 05/29/16 18:28 5 MG Doxycycline Hyclate/Dextrose (Vibramycin IV/ D5 100ml) 110 ml @ 50 mls/hr NOW STAT IV 05/29/16 21:40 05/29/16 23:51 DC 05/29/16 22:48 50 MLS/HR Potassium Chloride (Klor-Con M10) 40 meq NOW STAT PO 05/29/16 22:55 05/29/16 23:07 DC 05/29/16 23:33 40 MEQ Furosemide (Lasix Inj) 40 mg NOW STAT IV 05/29/16 23:07 05/29/16 23:08 DC 05/29/16 23:34 40 MG Medical Decision Differential diagnoses includes but is not limited to pneumonia, bronchitis, COPD/Asthma exacerbation, pneumothorax, pulmonary embolism, congestive heart failure, acute coronary syndrome 71 yo F w/ hx of COPD on Home O2 2-3 L at night, Chronic Diastolic CHF p/w acute worsening of LE Edema and SOB on Exertion, 91% saturation, VSS EKG: NSR No ischemic changes CXR: no active disease chest BMP: BUN 26, Cr .77 CBC: 11.5/36.2 ( within baseline Hgb 10.5- 11.4) BNP 2984 ( previous in Mar: 1318) UA: Negative Venous Doppler U/S RLE: NO evidence DVT Arterial Doppler U/S RLE: ABO of .66, mod. atherosclerotic plaque in RLE CT Angiography PE : No PE identified , Roel lobe opacities (atelectasis vs. consolidation) -Given IV Solu-medrol, duoneb treatment, -Given Oxycodone IR 5 mg PO for Left hip pain -Given IV doxycycline for pneumonia coverage -Case was discussed with Hospitalist who agreed to evaluate her for further management Impression Primary Impression: Chronic obstructive pulmonary disease Additional Impression: Pneumonia Departure Information Dispostion Admitted as an inpatient Referrals Lena Quintanilla D.O. (PCP) Patient Instructions My [facility] Resident Tracking Resident Involvement: Resident Care Provided Care Provided: Adult ED Problem Qualifiers Additional Impression: Pneumonia Pneumonia type: due to unspecified organism
[2016-05-29 17:18] LABS: BASO % 0.1 %; BASO ABS # 0.01 K/uL (0-0.2); COMPLETE YES; EOS % 0.3 %; HEMATOCRIT 36.2 % (37-47); IG% 0.2 %; LYMPH % 10.7 %; LYMPH ABS # 0.95 K/uL (1.2-3.4); MEAN CELL VOLUME 98.6 fL (80-100); MEAN CORPUSCULAR HEMOGLOBIN 31.3 pg (25-34); MEAN CORPUSCULAR HGB CONC 31.8 g/dl (32-36); MEAN PLATELET VOLUME 9.3 fL (7.4-10.4); MONO % 9.6 %; NEUT % 79.1 %; PLATELET COUNT 279 K/uL (130-400); RED BLOOD COUNT 3.67 M/uL (4.2-5.4); WHITE BLOOD COUNT 8.89 K/uL (4.8-10.8)
[2016-05-29 17:35] LABS: CALCIUM 8.3 mg/dl (8.5-10.1); CREATININE 0.77 mg/dl (0.60-1.20); POTASSIUM 3.5 mmol/L (3.5-5.1)
[2016-05-29 17:40] LABS: ALB/GLOB RATIO 0.8 (0.9-2); CKMB/CK RATIO 3.1 (0-3.0)
[2016-05-29 18:01] LABS: URINE APPEARANCE CLEAR (CLEAR); URINE BILIRUBIN NEG (NEG); URINE COLOR YELLOW; URINE NITRITE NEG (NEG); URINE PH 5.5 (4.5-7.5); URINE SPECIFIC GRAVITY 1.027 (1.000-1.030); UROBILINOGEN NEG (NEG)
[2016-05-29 18:05] LABS: MANUAL MICROSCOPIC REQUIRED? NO; REVIEW REQ? NO
[2016-05-29] MEDS ORDERED: OXYCODONE HCL IR 5 MG TAB (IMMEDIATE RELEASE) PO STA (18:10)
[2016-05-29] MEDS ORDERED: NICOTINE 21 MG/24 HR TDSY TD STA (18:41)
--- NOTE | 2016-05-29 20:06 | DIAGNOSTIC IMAGING REPORT ---
RIGHT LOWER EXTREMITY VENOUS DOPPLER CLINICAL HISTORY: Right leg pain. COMPARISON STUDY: Bilateral lower extremity venous Doppler April 02, 2016. TECHNIQUE: Sonography of the deep venous system of the right lower extremity was performed. Compression and augmentation were evaluated. FINDINGS: The right common femoral, superficial femoral and popliteal veins were compressible. Augmentation was normal. There was linear echogenic material within the right posterior tibial vein. IMPRESSION: Linear echogenic material within the right posterior tibial vein. While age indeterminate, the appearance favors chronic thrombus. No evidence for acute deep venous thrombus within the right lower extremity. Electronically signed by: Jonathan Kim M.D. 05/29/2016 8:05 PM Dictated Date/Time: 05/29/2016 8:04 PM
--- NOTE | 2016-05-29 20:09 | DIAGNOSTIC IMAGING REPORT ---
RIGHT LOWER EXTREMITY ARTERIAL DOPPLER ULTRASOUND CLINICAL HISTORY: Right leg pain. COMPARISON STUDY: No previous studies for comparison. FINDINGS: The right ankle to brachial index measured 0.66 when using posterior tibial artery and 0.63 when using the dorsalis pedis. There was monophasic flow within the right common femoral artery which raises the possibility of inflow disease. There was moderate atherosclerotic plaque within the right lower extremity. No elevated velocities were identified within the right lower extremity. There was monophasic flow throughout the right lower extremity. IMPRESSION: 1. Diminished right ankle to brachial index of 0.66. 2. Moderate atherosclerotic plaque within the right lower extremity. 3. Monophasic flow throughout the right lower extremity which raises the possibility of inflow disease. Electronically signed by: Jonathan Kim M.D. 05/29/2016 8:07 PM Dictated Date/Time: 05/29/2016 8:06 PM
[2016-05-29] MEDS ORDERED: OPTIRAY 320 IV PRN (20:15)
--- NOTE | 2016-05-29 20:57 | DIAGNOSTIC IMAGING REPORT ---
CT ANGIOGRAPHY OF THE CHEST, PULMONARY EMBOLUS PROTOCOL CLINICAL HISTORY: Shortness of breath. Edema. COMPARISON STUDY: Chest CT April 02, 2016. TECHNIQUE: Following IV administration of 94 mL of Optiray-320, helical axial images of the chest were obtained utilizing the pulmonary embolus protocol. Maximal intensity projections and sagittal and coronal reformats were viewed on an independent 3D workstation. IV contrast was administered without complication. CT DOSE: 249.42 mGy.cm FINDINGS: No pulmonary emboli are identified. The heart is moderately enlarged. There is no evidence for thoracic aortic dissection. There is extensive atherosclerotic plaque of the thoracic aorta. 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 This is chronic. There are calcified right hilar lymph nodes. There is a calcified granuloma within the right upper lobe. Ground glass opacities within the lungs are noted. There is left lower lobe airspace opacity and to a lesser extent right lower lobe airspace opacity. A 7 mm subpleural nodule within the right upper lobe is unchanged since earlier exams. This is benign. There is a 2.1 cm subpleural groundglass opacity within the right upper lobe shown image 197 of 278. There is no pneumothorax. There are trace bilateral pleural effusions. Upper abdomen is unremarkable. IMPRESSION: 1. No pulmonary emboli identified. 2. Moderate emphysema. 3. Bilateral lower lobe opacities. Atelectasis is favored although consolidation could appear similar. 4. Mild groundglass opacities which could reflect atelectasis or mild pulmonary edema. 5. 2.1 cm subpleural groundglass opacity within the right upper lobe. This is likely atelectatic or inflammatory/infectious. However, follow-up chest CT in 6 months is recommended. Electronically signed by: Jonathan Kim M.D. 05/29/2016 8:56 PM Dictated Date/Time: 05/29/2016 8:47 PM
[2016-05-29] MEDS ORDERED: DOXYCYCLINE IV 100 MG in DEXTROSE 5% 100ML 100 ML IV STA (21:40)
[2016-05-29] MEDS ORDERED: POTASSIUM CHLORIDE 10 MEQ TABCR PO STA (22:55)
[2016-05-29] MEDS ORDERED: FUROSEMIDE INJ 40 MG in SYRINGE 0 ML IV STA (22:55)
[2016-05-29] MEDS ORDERED: FUROSEMIDE 40 MG/4 ML VIAL IV STA (23:07)
[2016-05-30] VITALS (14 sets, daily range): BP systolic 131–221; BP diastolic 60–103; PULSE 65–84; TEMP 36.4–36.8; O2SAT 92–98; Ht 160 cm; Wt 67.8 kg
--- NOTE | 2016-05-30 00:19 | EMERGENCY ROOM VISIT NOTE ---
History Report prepared by Juwan: Hemalatha Lewis Under the Supervision of: Dr. Shar Ramirez M.D. First contact with patient: 16:06 Chief Complaint: SHORTNESS OF BREATH Stated Complaint: EDEMA,SOB,BLURRY VISION Nursing Triage Summary: patient c/o "water retention and edema" in ankles and feet as well as Shortness of breath. "I've been gaining weight steadily...-5-10 pounds over the last week or two." History of Present Illness The patient is a 71 year old female who presents to the Emergency Room with complaints of worsening shortness of breath that started a few days ago. The patient states that she is short of breath at her baseline, but the last few days have been worse than usual. The shortness of breath seems to be worse with exertion. The patient is also experiencing worsening bilateral lower extremity edema, which also started a few days ago. She states that she has been steadily gaining weight recently and that she has gained 5-10 over the last week or two. The patient is also experiencing lightheadedness, a dry cough, intermittent left-sided chest pain, palpitations, and some urinary incontinence with coughing. Pt denies LOC, headache, fevers, chills, diaphoresis, visual changes, neck pain, nausea, vomiting, abdominal pain, back pain, melena, hematochezia, numbness, weakness, lymphadenopathy, rash, or other complaints. She has a history of COPD and CHF. She was admitted to the hospital March 29 and April 02 for similar symptoms. The patient states that she felt well after being discharged from the hospital, but over the last few days her symptoms began to gradually worsen again. The patient adds that she has also been experiencing constipation over the last couple days, but she is unsure of exactly how long it has been since her last bowel movement. The patient is also experiencing right leg and groin pain that is worse with standing or walking. She states that she has a stent in her right groin due to a history of a vascular disease. Source of History: patient Onset: a few days ago Position: chest Quality: other (shortness of breath) Timing: worsening Associated Symptoms: + chest pain (intermittent left-sided), + cough (dry), + urinary symptoms (incontinence with coughing) Note: lightheadedness, palpitations, worsening bilateral lower extremity edema, right leg and groin pain, constipation Review of Systems See HPI for pertinent positives and negatives. A total of ten systems were reviewed and were otherwise negative. Past Medical & Surgical Medical Problems: (1) Cerebrovascular disease (2) CHF exacerbation (3) Chronic obstructive lung disease (4) Chronic pancreatitis (5) Depression (6) Essential hypertension (7) Hyperlipidemia (8) Iron deficiency anemia (9) Osteoporosis (10) Peripheral vascular disease (11) Pseudocyst of pancreas (12) Respiratory failure, acute (13) Sleep apnea (14) Tobacco user (15) Vitamin D deficiency Surgical Problems: (1) Status post appendectomy (2) Status post cholecystectomy (3) Status post ERCP (4) Status post hernia repair (5) Status post hysterectomy Family History Diabetes mellitus FATHER FHx: gallbladder disease Heart disease BROTHER (onset age 46, age 58) Hypertension Kidney stones Lung disease Stroke FATHER MOTHER Social History Smoking Status: Current Every Day Smoker Alcohol Use: none Drug Use: none Marital Status: single, Housing Status: lives with family Occupation Status: retired Current/Historical Medications Scheduled Albuterol Sulfate (Proair Respiclick), 2 PUFFS INH QID Aspirin (Aspirin Ec), 81 MG PO QPM Atorvastatin (Lipitor), 20 MG PO QPM Cholecalciferol (Vitamin D 1000 Unit), 1,000 INTER.UNIT PO QPM Citalopram Hydrobromide (Citalopram Hydrobromide), 40 MG PO QPM Clopidogrel (Plavix), 75 MG PO QPM Denosumab (Prolia), 60 MG SC Q6 MONTHS Ferrous Sulfate (Ferrous Sulfate), 187.5 MG PO QPM Folic Acid (Folvite), 1 MG PO QPM Nicotine (Nicotine), 1 PATCH TD QAM Omeprazole (Prilosec), 20 MG PO DAILY Oxygen (Oxygen), 3 LITERS NA DAILY and HS Oyster Shell (Calcium), 500 MG PO BID Potassium Gluconate (Potassium Gluconate), 550 MG PO QPM Prednisone (Prednisone), 10 MG PO UD Umeclidinium [place] (Incruse Ellipta), 1 PUFF INH DAILY Scheduled PRN Clonazepam (Klonopin), 0.5 MG PO TID PRN for Anxiety Fluticasone Propionate (Nasal) (Flonase Allergy Relief), 2 SPRAY TAY DAILY PRN for PRN Furosemide (Furosemide), 40 MG PO QAM PRN for swelling Hydrocodone W/ Homatropine (Hycodan 5/1.5MG 5 Ml), 5 ML PO Q4H PRN for PRN Hyoscyamine Sulfate (Hyoscyamine Sulfate Odt), 0.125 MG SL Q4 PRN for ABDOMINAL PAIN Ipratropium-Albuterol (Duoneb), 1 TREATMENT INH Q6 PRN for SOB/Wheezing Nitroglycerin (Nitrostat), 0.4 MG UT UD PRN for Chest Pain Allergies Coded Allergies: Ciprofloxacin (Verified Allergy, Mild, ITCHY, 05/29/16) Azithromycin (Verified Allergy, Unknown, unknown, 05/29/16) Influenza Vaccines (Unverified Allergy, Unknown, HIVES ON THE SITE, 05/29/16 ) Nitrates, Organic (Verified Allergy, Unknown, UNSURE; BUT PATIENT TAKES NITROSTAT PER ADMIT MED REC., 05/29/16) Nitrofurantoin (Verified Allergy, Unknown, UNSURE, 05/29/16) Pneumococcal Polysaccharides (Verified Allergy, Unknown, unk, 05/29/16) Physical Exam Vital Signs Date Time Temp Pulse Resp B/P Pulse Ox O2 Delivery O2 Flow Rate FiO2 05/29/16 23:22 75 05/29/16 22:47 74 20 145/74 91 Nasal Cannula 3.0 05/29/16 19:52 77 16 180/86 94 3.0 05/29/16 17:10 75 16 189/84 92 Room Air 05/29/16 16:40 95 Room Air 05/29/16 16:15 95 Room Air 05/29/16 16:15 75 05/29/16 15:15 37.3 82 22 191/85 96 Room Air 05/29/16 15:15 93 Room Air Physical Exam GENERAL: Awake, alert, well-appearing, in no distress HENT: Normocephalic, atraumatic. Oropharynx unremarkable. EYES: Normal conjunctiva. Sclera non-icteric. NECK: Supple. No nuchal rigidity. FROM. No JVD. RESPIRATORY: Bilateral wheezing. CARDIAC: Regular rate, normal rhythm. Extremities warm and well perfused. Pulses equal. ABDOMEN: Soft, non-distended. No tenderness to palpation. No rebound or guarding. No masses. RECTAL: Deferred. MUSCULOSKELETAL: Chest examination reveals no tenderness. The back is symmetrical on inspection without obvious abnormality. There is no CVA tenderness to palpation. No joint edema. LOWER EXTREMITIES: Calves are equal size bilaterally and non-tender. 1+ pitting edema bilaterally. Right leg tenderness. No discoloration. NEURO: Normal sensorium. No sensory or motor deficits noted. SKIN: No rash or jaundice noted. Medical Decision & Procedures ER Provider Diagnostic Interpretation: X ray results as stated below per my interpretation and radiologist interpretation. Other radiology results as stated below per my review and radiologist interpretation CHEST ONE VIEW PORTABLE IMPRESSION: No active disease in the chest. Electronically signed by: David Kirk M.D. 05/29/2016 4:50 PM Dictated Date/Time: 05/29/2016 4:48 PM RIGHT LOWER EXTREMITY VENOUS DOPPLER IMPRESSION: Linear echogenic material within the right posterior tibial vein. While age indeterminate, the appearance favors chronic thrombus. No evidence for acute deep venous thrombus within the right lower extremity. Electronically signed by: Jonathan Kim M.D. 05/29/2016 8:05 PM Dictated Date/Time: 05/29/2016 8:04 PM RIGHT LOWER EXTREMITY ARTERIAL DOPPLER ULTRASOUND IMPRESSION: 1. Diminished right ankle to brachial index of 0.66. 2. Moderate atherosclerotic plaque within the right lower extremity. 3. Monophasic flow throughout the right lower extremity which raises the possibility of inflow disease. Electronically signed by: Jonathan Kim M.D. 05/29/2016 8:07 PM Dictated Date/Time: 05/29/2016 8:[address] ANGIOGRAPHY OF THE CHEST, PULMONARY EMBOLUS PROTOCOL IMPRESSION: 1. No pulmonary emboli identified. 2. Moderate emphysema. 3. Bilateral lower lobe opacities. Atelectasis is favored although consolidation could appear similar. 4. Mild groundglass opacities which could reflect atelectasis or mild pulmonary edema. 5. 2.1 cm subpleural groundglass opacity within the right upper lobe. This is likely atelectatic or inflammatory/infectious. However, follow-up chest CT in 6 months is recommended. Electronically signed by: Jonathan Kim M.D. 05/29/2016 8:56 PM Dictated Date/Time: 05/29/2016 8:47 PM Laboratory Results 05/29/16 17:06 Red Blood Count 3.67, Mean Corpuscular Volume 98.6, Mean Corpuscular Hemoglobin 31.3, Mean Corpuscular Hemoglobin Concent 31.8, Mean Platelet Volume 9.3, Neutrophils (%) (Auto) 79.1, Lymphocytes (%) (Auto) 10.7, Monocytes (%) (Auto) 9.6, Eosinophils (%) (Auto) 0.3, Basophils (%) (Auto) 0.1, Neutrophils # (Auto) 7.03, Lymphocytes # (Auto) 0.95, Monocytes # (Auto) 0.85, Eosinophils # (Auto) 0.03, Basophils # (Auto) 0.01 05/29/16 17:06 Test 05/29/16 17:06 05/29/16 17:35 05/29/16 22:55 White Blood Count 8.89 K/uL (4.8-10.8) Red Blood Count 3.67 M/uL (4.2-5.4) Hemoglobin 11.5 g/dL (12.0-16.0) Hematocrit 36.2 % (37-47) Mean Corpuscular Volume 98.6 fL (80-100) Mean Corpuscular Hemoglobin 31.3 pg (25-34) Mean Corpuscular Hemoglobin Concent 31.8 g/dl (32-36) Platelet Count 279 K/uL (130-400) Mean Platelet Volume 9.3 fL (7.4-10.4) Neutrophils (%) (Auto) 79.1 % Lymphocytes (%) (Auto) 10.7 % Monocytes (%) (Auto) 9.6 % Eosinophils (%) (Auto) 0.3 % Basophils (%) (Auto) 0.1 % Neutrophils # (Auto) 7.03 K/uL (1.4-6.5) Lymphocytes # (Auto) 0.95 K/uL (1.2-3.4) Monocytes # (Auto) 0.85 K/uL (0.11-0.59) Eosinophils # (Auto) 0.03 K/uL (0-0.5) Basophils # (Auto) 0.01 K/uL (0-0.2) RDW Standard Deviation 55.7 fL (36.4-46.3) RDW Coefficient of Variation 15.4 % (11.5-14.5) Immature Granulocyte % (Auto) 0.2 % Immature Granulocyte # (Auto) 0.02 K/uL (0.00-0.02) Anion Gap 8.0 mmol/L (3-11) Est Creatinine Clear Calc Drug Dose 60.6 ml/min Estimated GFR () 88.8 Estimated GFR (Non- 76.6 BUN/Creatinine Ratio 34.0 (10-20) Calcium Level 8.3 mg/dl (8.5-10.1) Magnesium Level 2.3 mg/dl (1.8-2.4) Total Bilirubin 0.2 mg/dl (0.2-1) Aspartate Amino Transf (AST/SGOT) 11 U/L (15-37) Alanine Aminotransferase (ALT/SGPT) 16 U/L (12-78) Alkaline Phosphatase 81 U/L (45-117) Total Creatine Kinase 52 U/L (26-192) Creatine Kinase MB 1.6 ng/ml (0.5-3.6) Creatine Kinase MB Ratio 3.1 (0-3.0) Troponin I 0.017 ng/ml (0-0.045) Pro-B-Type Natriuretic Peptide 2984 pg/ml (0-900) Total Protein 6.5 gm/dl (6.4-8.2) Albumin 2.9 gm/dl (3.4-5.0) Globulin 3.6 gm/dl (2.5-4.0) Albumin/Globulin Ratio 0.8 (0.9-2) Urine Color YELLOW Urine Appearance CLEAR (CLEAR) Urine pH 5.5 (4.5-7.5) Urine Specific [place] 1.027 (1.000-1.030) Urine Protein NEG (NEG) Urine Glucose (UA) NEG (NEG) Urine Ketones NEG (NEG) Urine Occult Blood NEG (NEG) Urine Nitrite NEG (NEG) Urine Bilirubin NEG (NEG) Urine Urobilinogen NEG (NEG) Urine Leukocyte Esterase NEG (NEG) Laboratory results reviewed by me Medications Administered Medications (Trade) Dose Ordered Sig/Lakeshia Route Start Time Stop Time Status Last Admin Dose Admin Albuterol/ Ipratropium (Duoneb) 3 ml NOW STAT INH 05/29/16 16:30 05/29/16 16:32 DC 05/29/16 17:20 3 ML Methylprednisolone Sodium Succinate (Solu-Medrol IV) 125 mg NOW STAT IV 05/29/16 16:30 05/29/16 16:32 DC 05/29/16 17:20 125 MG Nicotine (Nicoderm Cq 21MG Patch) 1 patch ONE STAT TD 05/29/16 18:41 05/29/16 18:42 DC 05/29/16 19:54 1 PATCH Oxycodone HCl 5 mg 5 mg NOW STAT PO 05/29/16 18:10 05/29/16 18:11 DC 05/29/16 18:28 5 MG Doxycycline Hyclate/Dextrose (Vibramycin IV/ D5 100ml) 110 ml @ 50 mls/hr NOW STAT IV 05/29/16 21:40 05/29/16 23:51 DC 05/29/16 22:48 50 MLS/HR Potassium Chloride (Klor-Con M10) 40 meq NOW STAT PO 05/29/16 22:55 05/29/16 23:07 DC 05/29/16 23:33 40 MEQ Furosemide (Lasix Inj) 40 mg NOW STAT IV 05/29/16 23:07 05/29/16 23:08 DC 05/29/16 23:34 40 MG ECG Indication: SOB/dyspnea Rate (beats per minute): 73 Rhythm: normal sinus Findings: no acute ischemic change, no ectopy ED Course 161: The clinical medical transcriptionist, Dr. Jeremiah Eugene, evaluated the patient. We discussed his findings and potential treatment plans. 1630: Ordered Solu-Medrol 125 mg IV, DuoNeb 3 ml INH 1645: The patient was evaluated in room B10. A complete history and physical exam was performed. 1809: Ordered Oxycodone HCl 5 mg PO 1840: Ordered Nicotine 1 patch TD 1939: Dr. Eugene went to reevaluate the patient, but she was still over at ultrasound. 2139: Ordered Doxycycline Amheptb936 mg/Dextrose 110 ml @ 50 mls/hr IV 2144: Upon reexamination, the patient was resting comfortably. I discussed the test results and treatment plan with her. The patient will be evaluated for further management. 2230: Discussed the patient's case with Dr. Lino Kimball. The patient will be evaluated for further treatment and disposition. Medical Decision Triage Nursing notes reviewed. The patient's presentation and history were concerning for shortness of breath and leg swelling. Etiologies such as pneumonia, COPD, reactive airway disease, CHF, cardiac ischemia, pulmonary embolism, pneumothorax, musculoskeletal, infections, gastrointestinal, as well as others were entertained. The patient was evaluated. She was hemodynamically stable. She did have some lower extremity edema. Blood work shows a moderate anemia but no leukocytosis. Urinalysis unremarkable. BNP was elevated but was better than prior. Cardiac markers were unremarkable. Chest imaging did not reveal any acute findings as was the same with ECG. The patient underwent ultrasound imaging of the right lower leg as well as CT PE imaging. No DVT was seen. The patient has some findings concerning for possible pneumonia. The patient was given IV doxycycline. She did receive a DuoNeb and Solu-Medrol. Given the constellation of symptoms further evaluation and management was felt to be appropriate in the hospital. The patient does have peripheral vascular disease in the right leg. Consultation was made with internal medicine. The patient was evaluated for further treatment. The patient was seen and examined with Dr. Eugene, resident physician. We discussed the case and treatments ordered, reviewed the results, and determine the disposition. Please refer to the resident's note for additional details. I have been directly involved with the management and disposition as well as independently evaluated the patient as documented in this note. By the evaluation outlined above other emergent etiologies such as those listed in the differential, as well as others, were deemed relatively unlikely. The [] informed about the findings as listed above. All questions were answered and [] pleased with the treatment. Return instructions were outlined and the patient was discharged in stable condition. The patient was referred to [] for follow-up [] for a recheck of the current condition. The chart was completed utilizing [employer] Speech voice recognition software. Grammatical errors, random word insertions, pronoun errors, and incomplete sentences are an occasional consequence of this system due to software limitations, ambient noise, and hardware issues. Any formal questions or concerns about the content, text, or information contained within the body of this dictation should be directly addressed to the physician for clarification. Consults Time Called: 2218 Consulting Physician: Dr. Lino iKmball Returned Call: 2230 Discussed the patient's case with Dr. Lino Kimball. The patient will be evaluated for further treatment and disposition. Impression Primary Impression: COPD (chronic obstructive pulmonary disease) Additional Impressions: Pneumonia Peripheral vascular disease Scribe Attestation The scribe's documentation has been prepared under my direction and personally reviewed by me in its entirety. I confirm that the note above accurately reflects all work, treatment, procedures, and medical decision making performed by me. Departure Information Dispostion Being Evaluated By Hospitalist Referrals Lena Quintanilla D.O. (PCP) Patient Instructions My [facility] Problem Qualifiers Primary Impression: COPD (chronic obstructive pulmonary disease) COPD type: unspecified COPD Qualified Codes: J44.9 - Chronic obstructive pulmonary disease, unspecified Additional Impressions: Pneumonia Pneumonia type: due to unspecified organism
[2016-05-30] MEDS ORDERED: MoRPHine SULFATE 2 MG/ML CARP IV PRN (02:30)
[2016-05-30] MEDS ORDERED: TRAMADOL HCL 50 MG TAB PO PRN (02:30)
[2016-05-30] MEDS ORDERED: NITROGLYCERIN 0.4 MG SL PER TAB CHARGE SL PRN (02:30)
[2016-05-30] MEDS ORDERED: ACETAMINOPHEN 325 MG TAB PO PRN (02:30)
[2016-05-30] MEDS ORDERED: AMPICILLIN/SULBACTAM SOD INJ 3,000 MG in SODIUM CHLORIDE 0.9% 100ML 100 ML IV STA (03:10)
[2016-05-30] MEDS ORDERED: PHARMACIST DISCHARGE MED REC CONSULT PRN (03:15)
[2016-05-30] MEDS ORDERED: NITROGLYCERIN 0.4 MG SL PER TAB CHARGE UT PRN (03:15)
[2016-05-30] MEDS ORDERED: LEVALBUTEROL/IPRATROPIUM NEB INH PRN (03:15)
[2016-05-30] MEDS ORDERED: LEVALBUTEROL 1.25MG/0.5ML NEB INH PRN (03:30)
[2016-05-30] MEDS ORDERED: IPRATROPIUM BROMIDE NEB SOLN 0.02% 2.5 ML VIAL INH PRN (03:30)
[2016-05-30] MEDS: CLONAZEPAM 0.5 MG TAB PO PRN ×2 (04:40→20:31)
--- NOTE | 2016-05-30 07:15 | DIAGNOSTIC IMAGING REPORT ---
HEAD CT NONCONTRAST CT DOSE: HISTORY: blurred vision TECHNIQUE: Multiaxial CT images of the head were performed without the use of intravenous contrast. Automated exposure control was utilized for this study. Comparison: Head CT 01/26/2014. Findings: The paranasal sinuses and mastoid air cells are clear. The calvarium and skull base are intact. There is no mass, hematoma, midline shift, acute infarct. White matter hypodensity is nonspecific but suggestive of microvascular ischemic change. The ventricles and sulci demonstrate mild age-related involutional changes. Old right ENGLISH [employer] LANG[employer]AGE IN[employer] territory infarct is again noted. Old lacunar infarct within the left basal ganglia. Impression: No significant change compared to the prior study. No acute intracranial abnormality. Electronically signed by: Carlo Morse M.D. 05/30/2016 7:14 AM Dictated Date/Time: 05/30/2016 7:11 AM
--- NOTE | 2016-05-30 07:26 | DIAGNOSTIC IMAGING REPORT ---
CT SCAN OF THE ABDOMEN AND PELVIS WITHOUT CONTRAST CLINICAL HISTORY: R flank pain COMPARISON STUDY: 08/07/2013 TECHNIQUE: CT scan of the abdomen and pelvis was performed from the lung bases to the proximal femurs. Images are reviewed in the axial, sagittal, and coronal planes. IV contrast was not administered for this examination. CT DOSE: 999.00 mGy.cm FINDINGS: Lower chest: There is left medial basal atelectasis/consolidation. There are right basilar atelectatic changes. Liver: The unenhanced liver is normal in size, contour, and attenuation. There is no intrahepatic biliary ductal dilatation. Gallbladder: Surgically absent Spleen: Normal in size and attenuation. Pancreas: There is mild pancreatic ductal dilatation. There is a cystic lesion involving the pancreatic head neck junction measuring 4 cm. This appears slightly larger on the preceding study. Adrenal glands: Unremarkable. Kidneys: There are vascular calcifications. Both kidneys demonstrate contrast excretion. This is presumed secondary to a prior contrast-enhanced study. There is no hydronephrosis. There is lower pole left renal scarring with fatty hypertrophy of the renal sinus. Bowel: There are no transition zones to indicate bowel obstruction. There is no acute diverticulitis. There are no findings to indicate acute appendicitis. Peritoneum: There is no intraperitoneal free air or abdominal ascites. Vasculature: There are extensive atheromatous calcifications within the abdominal aorta. As no aneurysmal dilatation. There is a right common iliac artery stent. Adenopathy: None. Pelvic viscera: The uterus appears surgically absent. Skeletal structures: No destructive osseous lesions are seen. 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 IMPRESSION: 1. No evidence of bowel obstruction. No evidence of free air. 2. Slight enlargement of the cystic lesion involving the pancreatic head/neck region. 3. Femoral head avascular necrosis 4. Bibasilar atelectasis/consolidation Electronically signed by: David Kirk M.D. 05/30/2016 7:25 AM Dictated Date/Time: 05/30/2016 7:16 AM
[2016-05-30] MEDS: IPRATROPIUM BROMIDE NEB SOLN 0.02% 2.5 ML VIAL INH SCH ×3 (07:33→20:19)
[2016-05-30] MEDS: LEVALBUTEROL 1.25MG/0.5ML NEB INH SCH ×3 (07:33→20:19)
[2016-05-30] MEDS ORDERED: LEVALBUTEROL/IPRATROPIUM NEB INH SCH (09:00)
--- NOTE | 2016-05-30 09:06 | HISTORY & PHYSICAL EXAMINATION ---
DATE OF ADMISSION: 05/29/2016 PRIMARY CARE DOCTOR: Dr. Quintanilla. CHIEF COMPLAINT: Shortness of breath, edema, blurred vision. HISTORY OF PRESENT ILLNESS: Recent confinement 2 months ago for steroid-induced fluid overload. Medical history significant for chronic diastolic heart failure, chronic respiratory failure secondary to COPD, on home O2, ongoing tobacco abuse, history of CVA as per records, hypertension, history of ESBL E. coli as per records, history of chronic pancreatitis as per records. A few days history of increasing shortness of breath and worsening leg swelling, no actual chest pain, dry cough, admits to some coughing, choking if she is not careful with meals. Patient also noted transient blurred vision both eyes yesterday, similar to history of stroke in the past. vague headache symptoms noted. At the Emergency Room, the patient received Solu-Medrol, DuoNeb for possible COPD exacerbation. MEDICAL HISTORY: As above. 2D echo from March 2016 showed EF 55-60%, grade 2 diastolic dysfunction, and moderate TR. SURGERIES: Appendectomy, hysterectomy, cholecystectomy, hernia repair. HOME MEDICATIONS: Include cholecalciferol, fluticasone, furosemide, hydrocodone, ipratropium, Oyster Shell, prednisone, albuterol, denosumab, hyoscyamine, oxygen, potassium gluconate, meclizine, Ellipta. ALLERGIES: TO AZITHROMYCIN, CIPRO, INFLUENZA, NITRATE, NITROFURANTOIN, PNEUMOCOCCAL POLYSACCHARIDE. FAMILY HISTORY: Lung cancer and heart disease. PERSONAL AND SOCIAL HISTORY: Ongoing tobacco abuse. No chronic intake of alcoholic beverages. 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 REVIEW OF SYSTEMS: As per HPI, some worsening of R back pain wc she's had for some months, worse with motion. all other ROS negative. PHYSICAL EXAMINATION: VITAL SIGNS: Blood pressure 170/80, pulse rate 74, RR 22, temperature 37.3, sats 91 on 3 liters. SKIN: Pallor. HEENT: Pale palpebral conjunctivae. Dry mucosa. NECK: Short neck. LUNGS: Expiratory wheezes. HEART: Regular rate and rhythm. ABDOMEN: Some distention. BACK: Tenderness on right back. Straight leg raise is positive. NEUROLOGIC: No gross focality. LABORATORY DATA: Hemoglobin was 11.5, Sodium 140, potassium 3.5, chloride 104, CO2 30, BUN 17, creatinine 0.7, glucose 105. trop 0 BNP was noted to be 2900. Troponin was normal. EKG showed normal sinus rhythm, no ischemia. CT chest, emphysema, atelectasis versus consolidation, ground-glass opacity right upper lobe. CT head, no significant change from the past. CT abd pelvis slight enlargement of cystic lesion. Femoral head, avascular necrosis. ASSESSMENT: 1. Acute on chronic hypoxemic respiratory failure multifactorial : Decompensated heart failure, known diastolic dysfunction Chronic obstructive pulmonary disease exacerbation. No sepsis. (possible aspiration pneumonitis) 2. Hypertension, slightly elevated. 3. Ongoing tobacco abuse. 4. Transient blurred vision, rule out transient ischemic attack. HX cerebrovascular accident as per records. 5. Worsening right back pain symptoms 2 to sciatica. PLAN: PCU supplemental O2, baseline ABG. Diuretic therapy. permissive HTN until stroke ruled out Cardiology consult, RE decompensated CHF. Augmentin. Swallow eval for aspiration pneumonitis nebs, prednisone course. Pulmonary consult RE chronic obstructive pulmonary disease exacerbation (px known to Dr. Story) neurochecks, MRI of the brain, transient blurred vision. MRI of the back. worsening R back pain/sciatica sx Further management pending MRI results. Nicotine patch. DVT prophylaxis, Lovenox subcu. Full code. MTDD
[2016-05-30] MEDS ORDERED: CLONIDINE HCL 0.1 MG TAB PO PRN (09:15)
[2016-05-30 09:50] LABS: COMPLETE YES; HEMATOCRIT 37.1 % (37-47); IG% 0.3 %; LYMPH ABS # 0.69 K/uL (1.2-3.4); MEAN CELL VOLUME 97.9 fL (80-100); MEAN CORPUSCULAR HEMOGLOBIN 30.9 pg (25-34); MEAN CORPUSCULAR HGB CONC 31.5 g/dl (32-36); MONO % 12.2 %; NEUT % 78.5 %; PLATELET COUNT 280 K/uL (130-400); RED BLOOD COUNT 3.79 M/uL (4.2-5.4); WHITE BLOOD COUNT 7.64 K/uL (4.8-10.8)
[2016-05-30] MEDS: NICOTINE 21 MG/24 HR TDSY TD SCH (09:52)
[2016-05-30] MEDS: PANTOprazole SOD 40 MG TAB PO SCH (09:52)
[2016-05-30] MEDS: FUROSEMIDE INJ 40 MG in SYRINGE 0 ML IV SCH (09:53)
[2016-05-30 09:57] LABS: PROTHROMBIN TIME (PATIENT) 10.2 SECONDS (9.0-12.0)
--- NOTE | 2016-05-30 10:13 | Cardiology Consultation ---
Cardiology Consultation Date of Consultation: May 30, 2016 Requesting Physician: Lino Attending Certified Hyperbaric Technologist: Dwight (Sanjay Menard PA-C) History of Present Illness Ms. Negrete is a 71 year old female who is being seen at the request of Dr. Huynh. Reason for consultation is congestive heart failure. Ms. Negrete presented to the ER on May 29, 2016 due to progressive dyspnea described as labored breathing, increased bilateral lower extremity edema over the last couple of weeks, and a steady weight gain. She notes being prescribed another Prednisone taper recently with resultant marked increased in dietary intake. She describes a cough productive of thick clear sputum without fevers or chills. She notes that her labored breathing and cough are aided by the use of her nebulizer. She notes receiving a Prolia injection yesterday; while waiting in the waiting room for 20 minutes she developed bilateral blurred vision that lasted for approximately 60 minutes. She notes concern for a recurrent TIA given her past history. Her prior TIA's symptoms were contralateral homonymous hemianopia prior to amaurosis fugax. She denies chest pain, palpitations, orthopnea, PND, or abdominal bloating. No lightheadedness, dizziness, near syncope, or syncope. Workup in the ER included a CXR which showed no active disease in the chest as per Dr. Kirk. CT of the chest was negative for PE. CT revealed moderate emphysema, bilateral lower lobe opacities (Atelectasis is favored although consolidation could appear similar), mild ground glass opacities which could reflect atelectasis or mild pulmonary edema, and a 2.1 cm subpleural ground glass opacity within the right upper lobe with follow-up chest CT in 6 months recommended as per Dr. Kim. Venous duplex showed a linear echogenic material within the right posterior tibial vein favoring chronic thrombus with no evidence for acute deep venous thrombus within the right lower extremity. Right lower extremity arterial duplex showed diminished right ankle to brachial index of 0.66, moderate atherosclerotic plaque within the right lower extremity , monophasic flow throughout the right lower extremity which raises the possibility of inflow disease as per Dr. Julio M.D. The patient was given 125 mg IV Solu-Medrol and a DuoNeb treatment with improvement in dyspnea. She was given 40 mg IV furosemide with significant improvement in the presenting fluid retention. She feels considerably better at the time of my evaluation and is anxious to return to her home environment. (Sanjay Menard PA-C) History Past Medical/Surgical History Oxygen dependent COPD with chronic ongoing tobacco abuse Nonobstructive coronary artery disease by catheterization at [facility] in January 2011 History of multiple TIA's prior to a CVA, attributed to atherosclerotic plaque in the aortic arch, prescribed dual antiplatelet therapy Contralateral homonymous hemianopia with the TIA, amaurosis fugax with the CVA Carotid occlusive disease AAA, peripheral arterial disease Sleep apnea, CPAP intolerant Iron deficiency anemia Hypertension Dyslipidemia Depression Pancreatic cyst Chronic pancreatitis Vitamin D deficiency Osteoporosis Cholecystectomy Appendectomy Total hysterectomy Ventral hernia repair Bilateral cataract extractions Family History: Positive for CAD in her mother and brother. Brother with an [place] at 46. Both parents had CVA's. Mother passes at 78. Father passed at 66. Social History: Smoker, currently 1/2 ppd. She notes smoking up to 3 ppd for 60 y ears. No smokeless tobacco use. Alcohol: Two 6 ounce glasses of wine per night. No illegal drug use. 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 . Lives alone. Two children. (Sanjay Menard PA-C) Review Of Systems General: No fever. No chills. Weight gain. Insomnia. HEENT: + Headache. No head trauma. Glasses. Bilateral cataract extractions. See above. Cardiovascular: No chest pain or chest discomfort. No palpitations. No orthopnea or PND. No near syncope or syncope. Pulmonary: + Cough. No wheezing. No hemoptysis. see above. Gastrointestinal: No nausea, vomiting, or diarrhea. Skin: No rash. Musculoskeletal: Arthritis. Knee pain. Neurological: TIA's. CVA. No history of seizures Complete review of systems is as stated above, negative, or noncontributory. (Sanjay Menard PA-C) Allergies Coded Allergies: Ciprofloxacin (Verified Allergy, Mild, ITCHY, 05/29/16) Azithromycin (Verified Allergy, Unknown, unknown, 05/29/16) Influenza Vaccines (Unverified Allergy, Unknown, HIVES ON THE SITE, 05/29/16 ) Nitrates, Organic (Verified Allergy, Unknown, UNSURE; BUT PATIENT TAKES NITROSTAT PER ADMIT MED REC., 05/29/16) Nitrofurantoin (Verified Allergy, Unknown, UNSURE, 05/29/16) Pneumococcal Polysaccharides (Verified Allergy, Unknown, unk, 05/29/16) Medications Reported Home Medications Medications Dose Route/Sig Max Daily Dose Days Date Category Dose Instructions Furosemide 40 Mg Tab 40 Mg PO QAM PRN 30 04/04/16 Rx Prednisone 10 Mg Tab 10 Mg PO UD 9 04/04/16 Rx TAKE 2 TABS DAILY X 2 DAYS THEN 1 TAB DAILY X3 DAYS THEN STOP Incruse Ellipta (Umeclidinium [place]) 62.5 Mcg/Inh Inh 1 Puff INH DAILY 30 04/04/16 Rx Nicotine 1 Patch Tdsy 1 Patch TD QAM 30 04/01/16 Rx Calcium (Oyster Shell) 500 Mg Tab 500 Mg PO BID 03/28/16 Reported Oxygen Gas 3 Liters NA DAILY AND HS 03/28/16 Reported Duoneb (Ipratropium-Albuterol) 3 Ml Nebu 1 Treatment INH Q6 PRN 03/28/16 Reported Flonase Allergy Relief (Fluticasone Propionate (Nasal)) 50 Mcg/Act Spr 2 [place] TAY DAILY PRN 03/28/16 Reported Hycodan 5/1.5MG 5 Ml (Hydrocodone W/ Homatropine) 1 Syp Syp 5 Ml PO Q4H PRN 03/28/16 Reported Prilosec (Omeprazole) 20 Mg Capcr 20 Mg PO DAILY 03/28/16 Reported Proair Respiclick (Albuterol Sulfate) 108 Mcg/Act Aer 2 Puffs INH QID 03/28/16 Reported Lipitor (Atorvastatin Calcium) 20 Mg Tab 20 Mg PO QPM 12/31/15 Reported Hyoscyamine Sulfate Odt (Hyoscyamine Sulfate) 0.125 Mg Tab 0.125 Mg SL Q4 PRN 01/27/14 Reported Ferrous Sulfate 325 Mg Tab 187.5 Mg PO QPM 01/27/14 Reported Aspirin Ec (Aspirin) 81 Mg Tab 81 Mg PO QPM 01/27/14 Reported Potassium Gluconate 550 Mg Tab 550 Mg PO QPM 05/02/13 Reported Prolia (Denosumab) 60 Mg/Ml Lia 60 Mg SC Q6 MONTHS 05/02/13 Reported Folvite (Folic Acid) 1 Mg Tab 1 Mg PO QPM 05/02/13 Reported Klonopin (Clonazepam) 0.5 Mg Tab 0.5 Mg PO TID PRN 05/02/13 Reported Citalopram Hydrobromide 40 Mg Tab 40 Mg PO QPM 09/13/12 Reported Vitamin D 1000 Unit (Cholecalciferol) 1,000 Unit Cap 1,000 Inter.unit PO QPM 03/29/12 Reported Nitrostat (Nitroglycerin) 0.4 Mg Tab 0.4 Mg UT UD PRN 08/03/[address] ONE TABLET UNDER THE TONGUE IF NEEDED FOR CHEST PAIN. MAY REPEAT 3 TIMES. Plavix (Clopidogrel Bisulfate) 75 Mg Tab 75 Mg PO QPM 08/03/09 Reported (Sanjay Menard PA-C) Physical Exam Vital Signs (Last 8hrs): Last 8 Hrs Date Time Temp Pulse Resp B/P Pulse Ox O2 Delivery O2 Flow Rate FiO2 05/30/16 07:37 84 18 93 Room Air 05/30/16 04:00 36.6 73 17 169/89 93 Nasal Cannula 3.0 05/30/16 04:00 93 Nasal Cannula 05/30/16 03:00 36.6 74 22 133/73 92 Nasal Cannula 2.0 05/30/16 02:45 72 18 165/78 94 General Appearance: Alert and Oriented x3. NAD. HEENT: Normocephalic Atraumatic. PER. EOMI. Conjunctiva and sclera clear Neck: Normal JVD. No HJR. harsh bilateral carotid bruits. Respiratory: Considerably diminished throughout. Rhonchi at the right base. Faint upper anterior expiratory wheeze. Cardiovascular: RRR, 86 bpm. Soft systolic ejection murmur. No diastolic murmur. No rub. PMI non displaced. Abdomen: +BS. + Abdominal bruit. Soft. Nontender. Extremities: Minimal distal (dorsal aspect of both feet, around lateral and medial malleolus) edema. No clubbing. No cyanosis. Pulses: 1/4 on the right. Nonpalpable on the left. Neuro: No focal deficits. Psychiatric: Normal affect. (Sanjay Menard PA-C) Data Last 24 Hours Test 05/29/16 17:06 05/29/16 17:35 05/30/16 07:44 05/30/16 08:00 White Blood Count 8.89 K/uL Red Blood Count 3.67 M/uL Hemoglobin 11.5 g/dL Hematocrit 36.2 % Mean Corpuscular Volume 98.6 fL Mean Corpuscular Hemoglobin 31.3 pg Mean Corpuscular Hemoglobin Concent 31.8 g/dl Platelet Count 279 K/uL Mean Platelet Volume 9.3 fL Neutrophils (%) (Auto) 79.1 % Lymphocytes (%) (Auto) 10.7 % Monocytes (%) (Auto) 9.6 % Eosinophils (%) (Auto) 0.3 % Basophils (%) (Auto) 0.1 % Neutrophils # (Auto) 7.03 K/uL Lymphocytes # (Auto) 0.95 K/uL Monocytes # (Auto) 0.85 K/uL Eosinophils # (Auto) 0.03 K/uL Basophils # (Auto) 0.01 K/uL RDW Standard Deviation 55.7 fL RDW Coefficient of Variation 15.4 % Immature Granulocyte % (Auto) 0.2 % Immature Granulocyte # (Auto) 0.02 K/uL Sodium Level 142 mmol/L Potassium Level 3.5 mmol/L Chloride Level 104 mmol/L Carbon Dioxide Level 30 mmol/L Anion Gap 8.0 mmol/L Blood Urea Nitrogen 26 mg/dl Creatinine 0.77 mg/dl Est Creatinine Clear Calc Drug Dose 60.6 ml/min Estimated GFR () 88.8 Estimated GFR (Non- 76.6 BUN/Creatinine Ratio 34.0 Random Glucose 105 mg/dl Calcium Level 8.3 mg/dl Magnesium Level 2.3 mg/dl Total Bilirubin 0.2 mg/dl Aspartate Amino Transf (AST/SGOT) 11 U/L Alanine Aminotransferase (ALT/SGPT) 16 U/L Alkaline Phosphatase 81 U/L Total Creatine Kinase 52 U/L Creatine Kinase MB 1.6 ng/ml Creatine Kinase MB Ratio 3.1 Troponin I 0.017 ng/ml Pro-B-Type Natriuretic Peptide 2984 pg/ml Total Protein 6.5 gm/dl Albumin 2.9 gm/dl Globulin 3.6 gm/dl Albumin/Globulin Ratio 0.8 Urine Color YELLOW Urine Appearance CLEAR Urine pH 5.5 Urine Specific [place] 1.027 Urine Protein NEG Urine Glucose (UA) NEG Urine Ketones NEG Urine Occult Blood NEG Urine Nitrite NEG Urine Bilirubin NEG Urine Urobilinogen NEG Urine Leukocyte Esterase NEG April 02, 2016 TTE Interpretation Summary ([facility], Dr. Martinez): No significant change compared to previous study of 01/27/14. Normal LV chamber size with mild concentric LVH. Normal LV systolic function, EF 55-60%. No segmental left ventricular wall motion abnormalities are noted. Grade II diastolic dysfunction. The right ventricular cavity size is normal (basal dimension <4.2 cm in right ventricular apical 4-chamber view). Aortic valve sclerosis mild, without significant aortic valvular stenosis. Moderate tricuspid regurgitation. Mild left atrial enlargement EKG dated and timed 29-MAY-2016 @ 17:08:50: Normal sinus rhythm at 73 bpm. Telemetry: Sinus in the 80's. No arrhythmia recorded. (Sanjay Menard, DIALLOC) Assessment & Plan Admission with multifactorial acute on chronic hypoxemic respiratory failure in a 71 year old female with history of oxygen dependent COPD with ongoing tobacco abuse Mild acute decompensated diastolic congestive heart failure felt to be secondary to hypertension, sodium indiscretion, COPD exacerbation, steroid use. Hypertension, hypertensive urgency Nonobstructive coronary artery disease by catheterization at [facility] in January 2011 Asymptomatic. No acute EKG changes Negative Troponin x 1. Normal left ventricular systolic function No significant valvular heart disease History of multiple TIA's (Contralateral homonymous hemianopia) prior to a CVA attributed to atherosclerotic plaque in the aortic arch, prescribed dual antiplatelet therapy Diffuse peripheral vascular disease include carotid occlusive disease, AAA, and bilateral lower extremity peripheral arterial disease Dyslipidemia RECOMMENDATIONS/PLAN: IV diuretics today, reassessing ongoing need in the AM of 05/31/2016 Add low dose beta-rasta therapy Continue ASA, Clopidogrel, and statin therapy Tobacco cessation Further recommendations pending the above, her ongoing hospitalization, and evaluation by Dr. Quintanilla. (Sanjay Menard PA-C) Cardiology Attending Physician: Patient seen and examined at the bedside. Feeling much better after diuretics, steroids, nebs. Resting comfortably. Complains of worsening upper and lower extremity edema in days preceding admission. Denies chest pain or palpitations. No orthopnea or PND. PE: VSS, Gen: NAD, AAO x3. Heart Reg, normal S1S2, no murmur. Lungs: diminished breath sounds B/L. No wheeze. Ext: No edema A/P: Agree with above ROSA history, physical exam, assessment and plan. Continue IV diuretic therapy today. Plans to transition to oral in next 24 - 48 hours. Continue otrher meds as previously ordered. Will continue to follow during hospitalization. Tyler Quintanilla DO, FACC (Angel Quintanilla DO)
[2016-05-30 10:16] LABS: BLOOD UREA NITROGEN 20 mg/dl (7-18); BUN/CREATININE RATIO 28.1 (10-20); CALCIUM 7.9 mg/dl (8.5-10.1); CARBON DIOXIDE 33 mmol/L (21-32); CHLORIDE 104 mmol/L (98-107); CREATININE 0.73 mg/dl (0.60-1.20); GLUCOSE 92 mg/dl (70-99); POTASSIUM 3.6 mmol/L (3.5-5.1); SODIUM 143 mmol/L (136-145)
--- NOTE | 2016-05-30 13:42 | Progress Note ---
Internal Med Progress Note Date of Service: May 30, 2016. Provider Documentation: SUBJECTIVE: The patient was seen and examined Admitted with SOB,Weight gain and Bilateral legs swelling Feels much better today OBJECTIVE: Vital Signs-as noted below Exam: General-No distress at rest Eyes-normal ENT-normal Neck-supple Lungs-Decreased breath sound bilaterally with moderate wheezing bilaterally Heart-Regular,no murmur appreciated Abdomen-Benign,no masses,bowel sound present Extremities-Trace edema bilaterally Neuro-AAox3 Lab data as noted below. ASSESSMENT & PLAN: Acute on chronic hypoxemic respiratory failure Decompensated acute on Chronic Diastolic heart failure Complicated by Chronic obstructive pulmonary disease exacerbation. No sepsis. (possible aspiration pneumonitis) Supplemental O2, baseline ABG. Diuretic therapy. Appreciate Cardiology input , RE decompensated CHF. COPD Exacerbation Supplemental O2, baseline ABG. Nebs and Steroid Pulmonary evaluation Hypertension, slightly elevated on admission Noted to be very high in patient Started on BP medications Ongoing tobacco abuse. Counselling Nicotine patch Transient blurred vision, rule out transient ischemic attack. Likely secondary to very high SBP Resolved now CT of the Head-negative Neuro check , MRI of the brain, transient blurred vision. Worsening right back pain symptoms 2 to sciatica. DVT prophylaxis, Lovenox subcu. Vital Signs: Date Time Temp Pulse Resp B/P Pulse Ox O2 Delivery O2 Flow Rate FiO2 05/30/16 12:00 Room Air 05/30/16 12:00 36.8 79 16 133/88 94 Room Air 05/30/16 09:15 76 16 149/85 92 Room Air 05/30/16 08:00 Nasal Cannula 05/30/16 08:00 36.8 81 17 05/30/16 07:53 81 26 192/85 05/30/16 07:45 82 20 221/103 98 Nasal Cannula 3.0 05/30/16 07:37 84 18 93 Room Air 05/30/16 04:00 36.6 73 17 169/89 93 Nasal Cannula 3.0 05/30/16 04:00 93 Nasal Cannula 05/30/16 03:00 36.6 74 22 133/73 92 Nasal Cannula 2.0 05/30/16 02:45 72 18 165/78 94 05/30/16 00:47 78 20 183/81 94 Nasal Cannula 3.0 05/29/16 23:22 75 05/29/16 22:47 74 20 145/74 91 Nasal Cannula 3.0 05/29/16 19:52 77 16 180/86 94 3.0 05/29/16 17:10 75 16 189/84 92 Room Air 05/29/16 16:40 95 Room Air 05/29/16 16:15 95 Room Air 05/29/16 16:15 75 05/29/16 15:15 37.3 82 22 191/85 96 Room Air 05/29/16 15:15 93 Room Air Lab Results: Results Past 24 Hours Test 05/29/16 17:06 05/29/16 17:35 05/30/16 09:43 Range/Units White Blood Count 8.89 7.64 4.8-10.8 K/uL Red Blood Count 3.67 3.79 4.2-5.4 M/uL Hemoglobin 11.5 11.7 12.0-16.0 g/dL Hematocrit 36.2 37.1 37-47 % Mean Corpuscular Volume 98.6 97.9 80-100 fL Mean Corpuscular Hemoglobin 31.3 30.9 25-34 pg Mean Corpuscular Hemoglobin Concent 31.8 31.5 32-36 g/dl Platelet Count 279 280 130-400 K/uL Mean Platelet Volume 9.3 9.0 7.4-10.4 fL Neutrophils (%) (Auto) 79.1 78.5 % Lymphocytes (%) (Auto) 10.7 9.0 % Monocytes (%) (Auto) 9.6 12.2 % Eosinophils (%) (Auto) 0.3 0.0 % Basophils (%) (Auto) 0.1 0.0 % Neutrophils # (Auto) 7.03 6.00 1.4-6.5 K/uL Lymphocytes # (Auto) 0.95 0.69 1.2-3.4 K/uL Monocytes # (Auto) 0.85 0.93 0.11-0.59 K/uL Eosinophils # (Auto) 0.03 0.00 0-0.5 K/uL Basophils # (Auto) 0.01 0.00 0-0.2 K/uL RDW Standard Deviation 55.7 55.1 36.4-46.3 fL RDW Coefficient of Variation 15.4 15.4 11.5-14.5 % Immature Granulocyte % (Auto) 0.2 0.3 % Immature Granulocyte # (Auto) 0.02 0.02 0.00-0.02 K/uL Sodium Level 142 143 136-145 mmol/L Potassium Level 3.5 3.6 3.5-5.1 mmol/L Chloride Level 104 104 98-107 mmol/L Carbon Dioxide Level 30 33 21-32 mmol/L Anion Gap 8.0 6.0 3-11 mmol/L Blood Urea Nitrogen 26 20 7-18 mg/dl Creatinine 0.77 0.73 0.60-1.20 mg/dl Est Creatinine Clear Calc Drug Dose 60.6 63.3 ml/min Estimated GFR () 88.8 94.7 Estimated GFR (Non- 76.6 81.7 BUN/Creatinine Ratio 34.0 28.1 10-20 Random Glucose 105 92 70-99 mg/dl Calcium Level 8.3 7.9 8.5-10.1 mg/dl Magnesium Level 2.3 1.8-2.4 mg/dl Total Bilirubin 0.2 0.2-1 mg/dl Aspartate Amino Transf (AST/SGOT) 11 15-37 U/L Alanine Aminotransferase (ALT/SGPT) 16 12-78 U/L Alkaline Phosphatase 81 45-117 U/L Total Creatine Kinase 52 26-192 U/L Creatine Kinase MB 1.6 0.5-3.6 ng/ml Creatine Kinase MB Ratio 3.1 0-3.0 Troponin I 0.017 < 0.015 0-0.045 ng/ml Pro-B-Type Natriuretic Peptide 2984 0-900 pg/ml Total Protein 6.5 6.4-8.2 gm/dl Albumin 2.9 3.4-5.0 gm/dl Globulin 3.6 2.5-4.0 gm/dl Albumin/Globulin Ratio 0.8 0.9-2 Urine Color YELLOW Urine Appearance CLEAR CLEAR Urine pH 5.5 4.5-7.5 Urine Specific [place] 1.027 1.000-1.030 Urine Protein NEG NEG Urine Glucose (UA) NEG NEG Urine Ketones NEG NEG Urine Occult Blood NEG NEG Urine Nitrite NEG NEG Urine Bilirubin NEG NEG Urine Urobilinogen NEG NEG Urine Leukocyte Esterase NEG NEG Prothrombin Time 10.2 9.0-12.0 SECONDS Prothromb Time International Ratio 1.0 0.9-1.1 Microbiology Results 05/29/16 Blood Culture, Received Pending 05/29/16 Blood Culture, Received Pending
[2016-05-30] MEDS: METOPROLOL SUCC 25MG EXT REL TAB PO SCH (13:46)
[2016-05-30] MEDS: AMOXICILLIN/CLAVULANATE TAB 875 MG TAB PO SCH (20:22)
[2016-05-30] MEDS ORDERED: CITALOPRAM 40 MG TAB PO SCH (21:00)
[2016-05-30] MEDS ORDERED: ATORVASTATIN 20 MG TAB PO SCH (21:00)
[2016-05-30] MEDS ORDERED: FERROUS SULFATE 325 MG TAB PO SCH (21:00)
[2016-05-30] MEDS ORDERED: ENOXAPARIN 40 MG/0.4 ML SYR SQ SCH (21:00)
[2016-05-30] MEDS ORDERED: ASPIRIN 81 MG ECTAB PO SCH (21:00)
[2016-05-30] MEDS ORDERED: CLOPIDOGREL BISULFATE 75 MG TAB PO SCH (21:00)
--- NOTE | 2016-05-30 22:23 | DIAGNOSTIC IMAGING REPORT ---
Brain MRI WITHOUT CONTRAST HISTORY: Stroke TECHNIQUE: Multiplanar multisequence MRI of the brain was performed without the use of contrast. COMPARISON STUDY: None. FINDINGS: No evidence for an acute ischemic event based on diffusion-weighted images. Considerable chronic small vessel change in the periventricular deep white matter regions. Old right occipital infarct. Several small old periventricular infarct. Sella and parasellar regions are unremarkable. IMPRESSION: 1. No acute intracranial abnormality. 2. Considerable chronic small vessel change with several old infarct. 3. No acute process. Electronically signed by: Sanjay Cid M.D. 05/30/2016 10:22 PM Dictated Date/Time: 05/30/2016 10:20 PM
--- NOTE | 2016-05-30 22:25 | DIAGNOSTIC IMAGING REPORT ---
Brain MRA HISTORY: Mental status change Stroke - Attention to [place] of [place] TECHNIQUE: 3-D [id number] MRA of the brain was performed without contrast. COMPARISON STUDY: None. FINDINGS: Visualized intracranial internal carotid arteries, distal vertebral arteries, and basilar artery are widely patent. There is no significant stenosis, occlusion, or aneurysm seen within the bilateral ACAs, MCAs, or director graphics. There are findings of mild scattered arterial occlusive changes throughout all major structures of the middle posterior and anterior cerebral circulation. There is no evidence for aneurysm. IMPRESSION: No significant stenosis, occlusion, or aneurysm within the [place]. Mild scattered atherosclerotic narrowing throughout all major components of the intracranial vasculature. Electronically signed by: Sanjay Cid M.D. 05/30/2016 10:23 PM Dictated Date/Time: 05/30/2016 10:22 PM
[2016-05-30] MEDS ORDERED: GADAVIST IV PRN (23:15)
[2016-05-31] VITALS (8 sets, daily range): BP systolic 107–141; BP diastolic 47–84; PULSE 65–82; TEMP 36–36.7; O2SAT 90–96
[2016-05-31] MEDS: IPRATROPIUM BROMIDE NEB SOLN 0.02% 2.5 ML VIAL INH SCH ×3 (01:52→14:35)
[2016-05-31] MEDS: LEVALBUTEROL 1.25MG/0.5ML NEB INH SCH ×3 (01:52→14:35)
--- NOTE | 2016-05-31 05:41 | Clinical Documentation Query ---
CLINICAL DOCUMENTATION QUERY 71 year old female who presents to the Emergency with worsening LE Edema and SOB. In your clinical opinion is this patient being managed for: ( + ) Hypertensive emergency evidenced by blurred vision treated with neuro workup and Clonidine ( ) Other explanation of clinical findings (Please Explain) ( ) Unable to determine (Please Define) ( ) Need to Discuss ( ) Not Agree The medical record reflects the following clinical findings, treatment, and risk factors. Clinical Indicators: BP 221/103, Blurred vision Treatment: Head CT, Brain MRI, Clonidine, IV Lasix, Risk Factors: Age, HTN, Please clarify and document your clinical opinion in the progress notes and discharge summary. Terms such as "probable", "suspected", "likely", "questionable", "possible", or "still to be ruled out" are acceptable. IF IN AGREEMENT, YOU MUST DOCUMENT ABOVE DIAGNOSTIC STATEMENT IN DAILY PROGRESS NOTES AND DISCHARGE SUMMARY. This document is not part of the patient's record. Thank You, Harrison Bates, RN [phone]
--- NOTE | 2016-05-31 07:03 | DIAGNOSTIC IMAGING REPORT ---
MRI LUMBAR SPINE COMBINATION CLINICAL HISTORY: Worsening back pain. TECHNIQUE: Sagittal and axial T1, T2 and STIR images were obtained. Imaging was performed before and after administration of 6.5 cc of intravenous Gadavist. COMPARISON STUDY: No previous studies for comparison. OBSERVATIONS: The vertebral bodies and posterior elements appear intact. There is no abnormal bony signal present to suggest a marrow replacement process. L1-2: No disc protrusions or extrusions. No evidence of spinal canal or neural foraminal compromise. L2-3: No disc protrusions or extrusions. No evidence of spinal canal or neural foraminal compromise. L3-4: There is a circumferential disc bulge with mild to moderate spinal stenosis. There is minimal right-sided foraminal narrowing. L4-5: There is a circumferential disc bulge with minor spinal canal narrowing. There is no significant foraminal stenosis L5-S1: No disc protrusions or extrusions. No evidence of spinal canal or neural foraminal compromise. The conus medullaris and cauda equina appear normal. There are no pathologically enhancing lesions. IMPRESSION: 1. Multilevel spondylitic changes 2. Minor spinal canal narrowing at the L4-5 level. Mild to moderate spinal stenosis at the L3-4 level. 3. No pathologically enhancing masses Electronically signed by: David Kirk M.D. 05/31/2016 7:02 AM Dictated Date/Time: 05/31/2016 6:57 AM
[2016-05-31] MEDS: AMOXICILLIN/CLAVULANATE TAB 875 MG TAB PO SCH ×2 (08:12→15:18)
[2016-05-31] MEDS: PANTOprazole SOD 40 MG TAB PO SCH (08:13)
[2016-05-31] MEDS: METOPROLOL SUCC 25MG EXT REL TAB PO SCH (08:13)
[2016-05-31] MEDS: NICOTINE 21 MG/24 HR TDSY TD SCH (08:14)
[2016-05-31] MEDS: FUROSEMIDE INJ 40 MG in SYRINGE 0 ML IV SCH (08:15)
--- NOTE | 2016-05-31 09:34 | Cardiology Follow-Up ---
Subjective General Date of Service: May 31, 2016. Chief Complaint: Right knee pain Pt evaluation today including: conversation w/ patient, physical exam, chart review, lab review, review of studies, review of inpatient medication list History of Present Illness Patient seen and examined. Dyspnea is back to baseline Peripheral edema has resolved. + Cough productive of clear phlegm, without fevers or chills Denies chest pain. No palpitations. No orthopnea or PND. Telemetry: Sinus in the 70's. Rare PVC's in singles. No bradyarrhythmias or pauses. No atrial fibrillation. Allergies Coded Allergies: Ciprofloxacin (Verified Allergy, Mild, ITCHY, 05/29/16) Azithromycin (Verified Allergy, Unknown, unknown, 05/29/16) Influenza Vaccines (Unverified Allergy, Unknown, HIVES ON THE SITE, 05/29/16 ) Nitrates, Organic (Verified Allergy, Unknown, UNSURE; BUT PATIENT TAKES NITROSTAT PER ADMIT MED REC., 05/29/16) Nitrofurantoin (Verified Allergy, Unknown, UNSURE, 05/29/16) Pneumococcal Polysaccharides (Verified Allergy, Unknown, unk, 05/29/16) Social History Smoking Status: Current Every Day Smoker Hx Tobacco Use In Past Year?: Yes Hx Alcohol Use - Type And Amou: Yes (12oz/day.) Hx Substance Use - Type And Am: No Problem List Medical Problems: (1) Chest pain Status: Acute (2) CHF (congestive heart failure) Status: Acute (3) Chronic obstructive pulmonary disease Status: Acute (4) COPD (chronic obstructive pulmonary disease) Status: Acute (5) COPD with acute bronchitis Status: Acute (6) Failure of outpatient treatment Status: Acute (7) Lower extremity edema Status: Acute (8) Peripheral vascular disease Status: Acute (9) Pneumonia Status: Acute (10) SOB (shortness of breath) Status: Acute Review of Systems Respiratory: No cough, No dyspnea at rest, No hemoptysis, No shortness of breath, No wheezing Cardiac: No PND, No chest pain, No edema, No orthopnea, No palpitations Physical Exam Vital Signs Last Vital Signs Documentation Date Time Temp Pulse Resp B/P Pulse Ox O2 Delivery O2 Flow Rate FiO2 05/31/16 07:47 74 16 91 Nasal Cannula 2.0 05/31/16 04:00 36.0 139/81 Physical Exam Constitutional: Level of Distress: NAD Psychiatric: Mental Status: active & alert Orientation: to time, to place, to person Memory: recent memory normal, remote memory normal Head: normocephalic, atraumatic Eyes: Pupils: PERRLA Neck: pertinent finding (Harsh bilateral carotid bruits. Normal JVP. No HJR) Lungs: Auscultation: no rales/crackles, deminished air movement, decreased breath sounds, expiratory wheezing, rhonchi (right base) Cardiovascular: Heart Auscultation: RRR, normal S1, normal S2, no murmurs, no rubs Peripheral Pulses: Radial Pulse: normal on the left, decreased on the right Dorsalis Pedis Pulse: decreased on the left, absent on the right Extremities: no cyanosis, no edema, no clubbing Neurologic: Cranial Nerves: grossly intact Assessment and Plan Assessment and Plan Admission with multifactorial acute on chronic hypoxemic respiratory failure in a 71 year old female with history of oxygen dependent COPD with ongoing tobacco abuse Acute decompensated diastolic congestive heart failure felt to be secondary to hypertension, sodium indiscretion, COPD exacerbation, steroid use. Recent echo with normal left ventricular systolic function, no significant valvular heart disease Volume status is normovolemic. Discontinue IV furosemide Resume oral furosemide in AM of 06/01/2016 Hypertension, hypertensive urgency BP on presentation was 191/85. Last four documented BP's were 138/66, 131/68, 132/71, 139/81 Toprol XL 12.5 mg/day added this admission given BP, history of nonobstructive CAD, echo findings. Nonobstructive coronary artery disease by catheterization at [facility] in January 2011 Asymptomatic. No acute EKG changes Troponin negative Continue low dose beta-rasta, ASA, and statin. Tobacco cessation History of multiple TIA's (Contralateral homonymous hemianopia) prior to a CVA attributed to atherosclerotic plaque in the aortic arch, prescribed dual antiplatelet therapy Diffuse peripheral vascular disease include carotid occlusive disease, AAA, and bilateral lower extremity peripheral arterial disease Harsh bilateral carotid bruits Outpatient duplex in May 2014 with moderate internal carotid artery disease Tobacco cessation urged Recommend outpatient bilateral carotid duplex, Vascular followup Dyslipidemia. Continue statin Cardiology Attending Physician: Patient seen and examined at the bedside. Feeling much better after diuretics, steroids, nebs. Resting comfortably. Denies chest pain or palpitations. No orthopnea or PND. requesting discharge is possible. PE: VSS, Gen: NAD, AAO x3. Heart Reg, normal S1S2, no murmur. Lungs: diminished breath sounds B/L. No wheeze. Ext: No edema A/P: Agree with above PA-C history, physical exam, assessment and plan. Resume oral diuretic therapy tomorrow. Continue other meds as previously ordered. Smoking cessation advised. Will sign off. Please call with questions. Tyler Quintanilla DO, [facility] Laboratory Results Last 24 Hours Test 05/30/16 09:43 05/31/16 08:54 White Blood Count 7.64 K/uL Red Blood Count 3.79 M/uL Hemoglobin 11.7 g/dL Hematocrit 37.1 % Mean Corpuscular Volume 97.9 fL Mean Corpuscular Hemoglobin 30.9 pg Mean Corpuscular Hemoglobin Concent 31.5 g/dl Platelet Count 280 K/uL Mean Platelet Volume 9.0 fL Neutrophils (%) (Auto) 78.5 % Lymphocytes (%) (Auto) 9.0 % Monocytes (%) (Auto) 12.2 % Eosinophils (%) (Auto) 0.0 % Basophils (%) (Auto) 0.0 % Neutrophils # (Auto) 6.00 K/uL Lymphocytes # (Auto) 0.69 K/uL Monocytes # (Auto) 0.93 K/uL Eosinophils # (Auto) 0.00 K/uL Basophils # (Auto) 0.00 K/uL RDW Standard Deviation 55.1 fL RDW Coefficient of Variation 15.4 % Immature Granulocyte % (Auto) 0.3 % Immature Granulocyte # (Auto) 0.02 K/uL Prothrombin Time 10.2 SECONDS Prothromb Time International Ratio 1.0 Sodium Level 143 mmol/L Potassium Level 3.6 mmol/L Chloride Level 104 mmol/L Carbon Dioxide Level 33 mmol/L Anion Gap 6.0 mmol/L Blood Urea Nitrogen 20 mg/dl Creatinine 0.73 mg/dl Est Creatinine Clear Calc Drug Dose 63.3 ml/min Estimated GFR () 94.7 Estimated GFR (Non- 81.7 BUN/Creatinine Ratio 28.1 Random Glucose 92 mg/dl Calcium Level 7.9 mg/dl Troponin I < 0.015 ng/ml
[2016-05-31 10:03] LABS: HEMATOCRIT 39.6 % (37-47); MEAN CELL VOLUME 101.8 fL (80-100); MEAN CORPUSCULAR HEMOGLOBIN 32.1 pg (25-34); MEAN CORPUSCULAR HGB CONC 31.6 g/dl (32-36); MEAN PLATELET VOLUME 9.5 fL (7.4-10.4); PLATELET COUNT 295 K/uL (130-400); RED BLOOD COUNT 3.89 M/uL (4.2-5.4)
--- NOTE | 2016-05-31 10:15 | DIAGNOSTIC IMAGING REPORT ---
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 Lungs otherwise appear clear. Several calcified mediastinal nodes unchanged. Diaphragms smooth. IMPRESSION: Small parenchymal infiltrate left base. Electronically signed by: Sanjay Cid M.D. 05/31/2016 10:14 AM Dictated Date/Time: 05/31/2016 10:13 AM
[2016-05-31 10:36] LABS: BUN/CREATININE RATIO 29.3 (10-20); CALCIUM 7.5 mg/dl (8.5-10.1); CREATININE 0.81 mg/dl (0.60-1.20); POTASSIUM 2.9 mmol/L (3.5-5.1)
--- NOTE | 2016-05-31 11:27 | Progress Note ---
Internal Med Progress Note Date of Service: May 31, 2016. Provider Documentation: SUBJECTIVE: The patient was seen and examined Admitted with SOB,Weight gain and Bilateral legs swelling Feels much better today Wants to ho home today OBJECTIVE: Vital Signs-as noted below Exam: General-No distress at rest Eyes-normal ENT-normal Neck-supple Lungs-Decreased breath sound bilaterally with moderate wheezing bilaterally - much improved Heart-Regular,no murmur appreciated Abdomen-Benign,no masses,bowel sound present Extremities-Trace edema bilaterally Neuro-AAox3 Lab data as noted below. ASSESSMENT & PLAN: Hypokalemia Will supplement and recheck Acute on chronic hypoxemic respiratory failure Decompensated acute on Chronic Diastolic heart failure Complicated by Chronic obstructive pulmonary disease exacerbation. No sepsis. (possible aspiration pneumonitis)-appreciate Speech evaluation Supplemental O2, baseline ABG. Diuretic therapy. Appreciate Cardiology input , RE decompensated CHF. COPD Exacerbation Supplemental O2, baseline ABG. Nebs and Steroid and Augmentin Pulmonary evaluation-not being done yet Hypertensive emergency evidenced by blurred vision treated with neuro workup and Clonidine Transient blurred vision, rule out transient ischemic attack. Likely secondary to very high SBP CT of the Head-negative Neuro check , MRI of the brain, transient blurred vision. MRI and MRA -unremarkable BP medications started Will need Carotid US Ongoing tobacco abuse. Counselling Nicotine patch Worsening right back pain symptoms 2 to sciatica. MRI of the Lumbar spine-no significant Stenosis DVT prophylaxis, Lovenox subcu. Vital Signs: Date Time Temp Pulse Resp B/P Pulse Ox O2 Delivery O2 Flow Rate FiO2 05/31/16 08:00 Nasal Cannula 2.0 05/31/16 08:00 36.7 72 18 141/74 96 Nasal Cannula 2.0 05/31/16 07:47 74 16 91 Nasal Cannula 2.0 05/31/16 04:00 36.0 65 139/81 93 Nasal Cannula 2.5 05/31/16 04:00 95 Nasal Cannula 2.0 05/31/16 01:52 71 16 96 Nasal Cannula 2.0 05/30/16 23:59 95 Nasal Cannula 2.0 05/30/16 23:59 36.4 68 20 132/71 95 Nasal Cannula 2.0 05/30/16 20:22 65 18 97 Nasal Cannula 2.0 05/30/16 20:00 95 Nasal Cannula 2.0 05/30/16 20:00 36.5 73 18 131/68 95 Nasal Cannula 2.0 05/30/16 16:02 72 93 05/30/16 16:00 Room Air 05/30/16 16:00 36.5 74 16 138/66 93 Room Air 05/30/16 14:03 75 18 95 Room Air 05/30/16 12:00 Room Air 05/30/16 12:00 36.8 79 16 133/88 94 Room Air Lab Results: Results Past 24 Hours Test 05/31/16 09:57 Range/Units White Blood Count 14.20 4.8-10.8 K/uL Red Blood Count 3.89 4.2-5.4 M/uL Hemoglobin 12.5 12.0-16.0 g/dL Hematocrit 39.6 37-47 % Mean Corpuscular Volume 101.8 80-100 fL Mean Corpuscular Hemoglobin 32.1 25-34 pg Mean Corpuscular Hemoglobin Concent 31.6 32-36 g/dl RDW Standard Deviation 59.0 36.4-46.3 fL RDW Coefficient of Variation 15.8 11.5-14.5 % Platelet Count 295 130-400 K/uL Mean Platelet Volume 9.5 7.4-10.4 fL Sodium Level 142 136-145 mmol/L Potassium Level 2.9 3.5-5.1 mmol/L Chloride Level 102 98-107 mmol/L Carbon Dioxide Level 31 21-32 mmol/L Anion Gap 9.0 3-11 mmol/L Blood Urea Nitrogen 24 7-18 mg/dl Creatinine 0.81 0.60-1.20 mg/dl Est Creatinine Clear Calc Drug Dose 57.2 ml/min Estimated GFR () 83.5 Estimated GFR (Non- 72.1 BUN/Creatinine Ratio 29.3 10-20 Random Glucose 83 70-99 mg/dl Calcium Level 7.5 8.5-10.1 mg/dl Magnesium Level 2.0 1.8-2.4 mg/dl
[2016-05-31] MEDS ORDERED: POTASSIUM CHLORIDE 10 MEQ TABCR PO ONE (12:00)
[2016-05-31] MEDS ORDERED: POTASSIUM CHLR 10 MEQ / WTR 10 MEQ in PREMIXED WATER 100 ML IV ONE (12:00)
[2016-05-31 16:28] LABS: BUN/CREATININE RATIO 25.1 (10-20); CALCIUM 7.3 mg/dl (8.5-10.1); CREATININE 0.98 mg/dl (0.60-1.20)
[2016-05-31 16:32] LABS: POTASSIUM 4.2 mmol/L (3.5-5.1)
[2016-05-31] MEDS ORDERED: PRD20 PO (16:58)
[2016-05-31] MEDS ORDERED: LSX40 PO (16:58)
[2016-05-31] MEDS ORDERED: TPRSR25 PO (16:58)
[2016-05-31] MEDS ORDERED: AMOX1TAB43 PO (16:58)
--- NOTE | 2016-05-31 17:01 | Discharge Instructions ---
Discharge Instructions Date of Service May 31, 2016. Admission Reason for Admission: Respiratory Failure, Acute Discharge Discharge Diagnosis / Problem: Acute Respiratory Failure,Diastolic Heart Failure Discharge Goals Goal(s): Prevent Disease Progression Activity Recommendations Activity Limitations: resume your previous activity . Instructions / Follow-Up Instructions / Follow-Up Please make an appointment with your PCP in 1 week Current Hospital Diet Patient's current hospital diet: AHA Diet (Heart Healthy) Discharge Diet Recommended Diet: AHA Diet (Heart Healthy) Fluid Restriction: 1500 ml (6 cups) Pending Studies Studies pending at discharge: no Medical Emergencies . Who to Call and When: Medical Emergencies: If at any time you feel your situation is an emergency, please call 911 immediately. . Non-Emergent Contact Non-Emergency issues call your: Primary Care Provider . Past History Medical & Surgical History: (1) Respiratory failure, acute (2) COPD (chronic obstructive pulmonary disease) (3) Iron deficiency anemia (4) Cerebrovascular disease (5) Essential hypertension (6) CHF exacerbation (7) Status post appendectomy (8) Status post hysterectomy (9) Status post ERCP . "Provider Documentation" section prepared by Naz Lozano. VTE Core Measure Inpt VTE Proph given/why not?: Enoxaparin (Lovenox)SQ
--- NOTE | 2016-05-31 17:44 | Discharge Summary ---
Discharge Summary Date of Service May 31, 2016. Discharge Summary Admission Date: May 29, 2016 at 23:33 Discharge Date: May 31, 2016 Discharge Disposition: Home Principal Diagnosis: Acute Respiratory Failure,Diastolic Heart Failure Secondary Diagnoses/Problems: Please see H&P and Hospital Progress note Consultations: Cardiology Medication Reconciliation New Medications: Amoxicillin & Pot Clavulanate (Amoxicillin/Clavulanate P) 1 Tab Tab 875 MG PO BIDM for 6 Days, #12 TAB Metoprolol Succinate (Metoprolol Succinate ER) 25 Mg Tabcr 12.5 MG PO QAM for 30 Days, #15 Prednisone (Prednisone) 20 Mg Tab 20 MG PO UD for 11 Days, #11 TAB 2 po daily for 2 days,1 and a 1/2 po daily for 3 days,1 podaily for 3 days and then 1/2 po daily for 3 days Continued Medications: Albuterol Sulfate (Proair Respiclick) 108 Mcg/Act Aer 2 PUFFS INH QID Aspirin (Aspirin Ec) 81 Mg Tab 81 MG PO QPM Atorvastatin (Lipitor) 20 Mg Tab 20 MG PO QPM, TAB Cholecalciferol (Vitamin D 1000 Unit) 1,000 Unit Cap 1000 INTER.UNIT PO QPM Citalopram Hydrobromide (Citalopram Hydrobromide) 40 Mg Tab 40 MG PO QPM Clonazepam (Klonopin) 0.5 Mg Tab 0.5 MG PO TID PRN for Anxiety Clopidogrel (Plavix) 75 Mg Tab 75 MG PO QPM, 0 Refills Denosumab (Prolia) 60 Mg/Ml Lia 60 MG SC Q6 MONTHS Ferrous Sulfate (Ferrous Sulfate) 325 Mg Tab 187.5 MG PO QPM Fluticasone Propionate (Nasal) (Flonase Allergy Relief) 50 Mcg/Act Spr 2 SPRAY TAY DAILY PRN for PRN Folic Acid (Folvite) 1 Mg Tab 1 MG PO QPM Furosemide (Furosemide) 40 Mg Tab 40 MG PO QAM for 30 Days, #30 TAB (This prescription has been renewed) Hydrocodone W/ Homatropine (Hycodan 5/1.5MG 5 Ml) 1 Syp Syp 5 ML PO Q4H PRN for PRN, ML Hyoscyamine Sulfate (Hyoscyamine Sulfate Odt) 0.125 Mg Tab 0.125 MG SL Q4 PRN for ABDOMINAL PAIN Ipratropium-Albuterol (Duoneb) 3 Ml Nebu 1 TREATMENT INH Q6 PRN for SOB/Wheezing, INHA Nicotine (Nicotine) 1 Patch Tdsy 1 PATCH TD QAM for 30 Days, #30 Nitroglycerin (Nitrostat) 0.4 Mg Tab 0.4 MG UT UD PRN for Chest Pain, [address] TABLET UNDER THE TONGUE IF NEEDED FOR CHEST PAIN. MAY REPEAT 3 TIMES. Omeprazole (Prilosec) 20 Mg Capcr 20 MG PO DAILY, CAP Oxygen (Oxygen) Gas 3 LITERS NA DAILY and HS Oyster Shell (Calcium) 500 Mg Tab 500 MG PO BID Potassium Gluconate (Potassium Gluconate) 550 Mg Tab 550 MG PO QPM Umeclidinium [place] (Incruse Ellipta) 62.5 Mcg/Inh Inh 1 PUFF INH DAILY for 30 Days Discontinued Medications: Prednisone (Prednisone) 10 Mg Tab 10 MG PO UD for 9 Days, #18 TAKE 2 TABS DAILY X 2 DAYS THEN 1 TAB DAILY X3 DAYS THEN STOP Admission Information HPI (per Admitting provider): DATE OF ADMISSION: 05/29/2016 PRIMARY CARE DOCTOR: Dr. Quintanilla. CHIEF COMPLAINT: Shortness of breath, edema, blurred vision. HISTORY OF PRESENT ILLNESS: Recent confinement 2 months ago for steroid-induced fluid overload. Medical history significant for chronic diastolic heart failure, chronic respiratory failure secondary to COPD, on home O2, ongoing tobacco abuse, history of CVA as per records, hypertension, history of ESBL E. coli as per records, history of chronic pancreatitis as per records. A few days history of increasing shortness of breath and worsening leg swelling, no actual chest pain, dry cough, admits to some coughing, choking if she is not careful with meals. Patient also noted transient blurred vision both eyes yesterday, similar to history of stroke in the past. vague headache symptoms noted. At the Emergency Room, the patient received Solu-Medrol, DuoNeb for possible COPD exacerbation. MEDICAL HISTORY: As above. 2D echo from March 2016 showed EF 55-60%, grade 2 diastolic dysfunction, and moderate TR. SURGERIES: Appendectomy, hysterectomy, cholecystectomy, hernia repair. HOME MEDICATIONS: Include cholecalciferol, fluticasone, furosemide, hydrocodone, ipratropium, Oyster Shell, prednisone, albuterol, denosumab, hyoscyamine, oxygen, potassium gluconate, meclizine, Ellipta. ALLERGIES: TO AZITHROMYCIN, CIPRO, INFLUENZA, NITRATE, NITROFURANTOIN, PNEUMOCOCCAL POLYSACCHARIDE. FAMILY HISTORY: Lung cancer and heart disease. PERSONAL AND SOCIAL HISTORY: Ongoing tobacco abuse. No chronic intake of alcoholic beverages. 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 REVIEW OF SYSTEMS: As per HPI, some worsening of R back pain wc she's had for some months, worse with motion. all other ROS negative. PHYSICAL EXAMINATION: VITAL SIGNS: Blood pressure 170/80, pulse rate 74, RR 22, temperature 37.3, sats 91 on 3 liters. SKIN: Pallor. HEENT: Pale palpebral conjunctivae. Dry mucosa. NECK: Short neck. LUNGS: Expiratory wheezes. HEART: Regular rate and rhythm. ABDOMEN: Some distention. BACK: Tenderness on right back. Straight leg raise is positive. NEUROLOGIC: No gross focality. LABORATORY DATA: Hemoglobin was 11.5, Sodium 140, potassium 3.5, chloride 104, CO2 30, BUN 17, creatinine 0.7, glucose 105. trop 0 BNP was noted to be 2900. Troponin was normal. EKG showed normal sinus rhythm, no ischemia. CT chest, emphysema, atelectasis versus consolidation, ground-glass opacity right upper lobe. CT head, no significant change from the past. CT abd pelvis slight enlargement of cystic lesion. Femoral head, avascular necrosis. ASSESSMENT: 1. Acute on chronic hypoxemic respiratory failure multifactorial : Decompensated heart failure, known diastolic dysfunction Chronic obstructive pulmonary disease exacerbation. No sepsis. (possible aspiration pneumonitis) 2. Hypertension, slightly elevated. 3. Ongoing tobacco abuse. 4. Transient blurred vision, rule out transient ischemic attack. HX cerebrovascular accident as per records. 5. Worsening right back pain symptoms 2 to sciatica. PLAN: PCU supplemental O2, baseline ABG. Diuretic therapy. permissive HTN until stroke ruled out Cardiology consult, RE decompensated CHF. Augmentin. Swallow eval for aspiration pneumonitis nebs, prednisone course. Pulmonary consult RE chronic obstructive pulmonary disease exacerbation (px known to Dr. Story) neurochecks, MRI of the brain, transient blurred vision. MRI of the back. worsening R back pain/sciatica sx Further management pending MRI results. Nicotine patch. DVT prophylaxis, Lovenox subcu. Full code. Hospital Course Hypokalemia Will supplement and recheck Acute on chronic hypoxemic respiratory failure Decompensated acute on Chronic Diastolic heart failure Complicated by Chronic obstructive pulmonary disease exacerbation. No sepsis. (possible aspiration pneumonitis)-appreciate Speech evaluation Supplemental O2, baseline ABG. Diuretic therapy. Appreciate Cardiology input , RE decompensated CHF. COPD Exacerbation Supplemental O2, baseline ABG. Nebs and Steroid and Augmentin Pulmonary evaluation-not being done yet Hypertensive emergency evidenced by blurred vision treated with neuro workup and Clonidine Transient blurred vision, rule out transient ischemic attack. Likely secondary to very high SBP CT of the Head-negative Neuro check , MRI of the brain, transient blurred vision. MRI and MRA -unremarkable BP medications started Will need Carotid US Ongoing tobacco abuse. Counselling Nicotine patch Worsening right back pain symptoms 2 to sciatica. MRI of the Lumbar spine-no significant Stenosis DVT prophylaxis, Lovenox subcu. Total time spent on discharge = 35 minutes This includes examination of the patient, discharge planning, medication reconciliation, and communication with other providers. Discharge Instructions Date of Service May 31, 2016. Admission Reason for Admission: Respiratory Failure, Acute Discharge Discharge Diagnosis / Problem: Acute Respiratory Failure,Diastolic Heart Failure Discharge Goals Goal(s): Prevent Disease Progression Activity Recommendations Activity Limitations: resume your previous activity . Instructions / Follow-Up Instructions / Follow-Up Please make an appointment with your PCP in 1 week Current Hospital Diet Patient's current hospital diet: AHA Diet (Heart Healthy) Discharge Diet Recommended Diet: AHA Diet (Heart Healthy) Fluid Restriction: 1500 ml (6 cups) Pending Studies Studies pending at discharge: no Medical Emergencies . Who to Call and When: Medical Emergencies: If at any time you feel your situation is an emergency, please call 911 immediately. . Non-Emergent Contact Non-Emergency issues call your: Primary Care Provider . Past History Medical & Surgical History: (1) Respiratory failure, acute (2) COPD (chronic obstructive pulmonary disease) (3) Iron deficiency anemia (4) Cerebrovascular disease (5) Essential hypertension (6) CHF exacerbation (7) Status post appendectomy (8) Status post hysterectomy (9) Status post ERCP . "Provider Documentation" section prepared by Naz Lozano. VTE Core Measure Inpt VTE Proph given/why not?: Enoxaparin (Lovenox)SQ <Electronically signed by Naz Lozano M.D.> Signed: 05/31/16 1701 Additional Copies To Lena Quintanilla D.O.
[2016-06-01] MEDS ORDERED: FUROSEMIDE 40 MG TAB PO SCH (09:00)
--- NOTE | 2016-06-01 14:06 | EDITING REQUIRED CODING QUERY ---
CODING QUERY Dear Dr. Lozano, To promote full compliance with coding requirements relating to patient care, provider participation is requested in all cases of aircraft line assembler uncertainty. Please assist us with the question(s) below: Please clarify TIA below: Coding Question(s): TIA ( ) Suspected TIA ( ) Confirmed TIA ( ) TIA was ruled out ( ) Other: Please explain ( + ) Unable to determine Symptoms were likely due to Hypertensive Urgency Medical documentation: HISTORY AND PHYSICAL 4. Transient blurred vision, rule out transient ischemic attack. HX cerebrovascular accident as per records. 5. Worsening right back pain symptoms 2 to sciatica. DISCHARGE SUMMARY Hypertensive emergency evidenced by blurred vision treated with neuro workup and Clonidine Transient blurred vision, rule out transient ischemic attack. Likely secondary to very high SBP CT of the Head-negative Neuro check , MRI of the brain, transient blurred vision. MRI and MRA -unremarkable BP medications started Physician's Response(s): Thank you for your time. Rona Arias [facility] Principal Diagnosis: "_that condition established after study, to be chiefly responsible for occasioning the admission of the patient to the hospital for care." Co-Existing Principal Diagnosis: "_when two or more diagnoses equally meet the criteria for principal diagnosis as determined by the circumstances of admission, diagnostic work up, and/or therapy provided, and the Alphabetic Index, Tabular List, or another coding guideline does not provide sequencing direction, any one of the diagnoses may be sequenced first." "When the physician has documented what appears to be a current diagnosis in the body of the record, but has not included the diagnosis in the final diagnostic statement, the physician should be asked whether the diagnosis should be added." (Source Coding Clinic 2 QTR90. p3-4)
== END 2016-05-31 17:29 | disposition home or self-care (01) | DRG 291 ==
LOC: ENRESERVDT → ENRESERVTM → C.EDB 15:08 → C.MSICU 23:33
PROVIDERS: ADMIT Internal Medicine; ATTEND Internal Medicine
DX: I50.33 Acute on chronic diastolic (congestive) heart failure (principal); J96.21 Acute and chronic respiratory failure with hypoxia; J69.0 Pneumonitis due to inhalation of food and vomit; J44.1 Chronic obstructive pulmonary disease with (acute) exacerbation; I16.1 Hypertensive emergency; E87.1 Hypo-osmolality and hyponatremia; F32.9 Major depressive disorder, single episode, unspecified; H53.8 Other visual disturbances; I16.0 Hypertensive urgency; I11.0 Hypertensive heart disease with heart failure; F17.210 Nicotine dependence, cigarettes, uncomplicated; I25.10 Atherosclerotic heart disease of native coronary artery without angina pectoris; E78.5 Hyperlipidemia, unspecified; E87.6 Hypokalemia; I71.4 Abdominal aortic aneurysm, without rupture; I73.9 Peripheral vascular disease, unspecified; D50.9 Iron deficiency anemia, unspecified; M81.0 Age-related osteoporosis without current pathological fracture; M54.30 Sciatica, unspecified side; G47.30 Sleep apnea, unspecified; I65.29 Occlusion and stenosis of unspecified carotid artery; Z16.12 Extended spectrum beta lactamase (ESBL) resistance; Z87.19 Personal history of other diseases of the digestive system; Z86.73 Personal history of transient ischemic attack (TIA), and cerebral infarction without residual deficits; Z99.81 Dependence on supplemental oxygen; Z82.49 Family history of ischemic heart disease and other diseases of the circulatory system; Z82.3 Family history of stroke; Z79.899 Other long term (current) drug therapy; Z79.02 Long term (current) use of antithrombotics/antiplatelets; Z79.891 Long term (current) use of opiate analgesic; Z79.52 Long term (current) use of systemic steroids; Z79.51 Long term (current) use of inhaled steroids

== ENCOUNTER → 2016-09-01 | Outpatient (CLI) | payer OTHER ==
[~2016-09-01] MED LIST changes: +AMOX1TAB43 PO; +PRD20 PO; -PRED10TA PO; +TPRSR25 PO
--- NOTE | 2016-09-01 13:54 | DIAGNOSTIC IMAGING REPORT ---
MRI right hip RIGHT LOWER EXT JOINT WITHOUT CLINICAL HISTORY: RIGHT HIP PAIN Right chronic hip pain TECHNIQUE: MRI multi axial acquisition COMPARISON STUDY: None FINDINGS: Findings consistent with bilateral avascular necrosis. There is involvement of the bulk of the right femoral head. No significant collapse of the femoral head at this time. Considerable edematous change throughout the femoral head neck and proximal femoral shaft region. Mild associated soft tissue surrounding edematous change. Signal characteristics of the acetabulum are unremarkable with no evidence for acetabular protrusion. Less prominent findings seen in a curvilinear fashion over the superior margin of the left femoral head. This again is consistent with avascular necrosis. No significant edematous change of the femoral head or neck. No evidence for collapse of the superior aspect of the femoral head. Signal characteristics of all remaining osseous structures are considered unremarkable. Muscle bundles appear symmetric. No abnormal mass or collection. IMPRESSION: 1. Bilateral avascular process. 2. Findings most prominent involving the right femoral head with reactive edematous change of the femoral neck and proximal femoral shaft. 3. Significant but less prominent findings seen in the left hip region. Electronically signed by: Sanjay Cid M.D. 09/01/2016 1:53 PM Dictated Date/Time: 09/01/2016 1:47 PM
== END | disposition home or self-care (01) ==
LOC: C.MRIBC 12:35
PROVIDERS: ATTEND Orthopaedic Surgery
DX: M25.551 Pain in right hip (principal); M25.451 Effusion, right hip

== ENCOUNTER 2018-12-04 18:06 | Inpatient (IN) ==
--- OUTSIDE RECORDS SUMMARY | 2018-12-04 18:09 | External Medical Summary | Continuity of Care Document ---
:1945 Author Name Olivia Main, Provider Address Unavailable Unavailable , Care Team Providers Name Role Phone Unavailable Unavailable Unavailable Problems Peripheral vascular disease (443.9) (I73.9) Depression (311) (F32.9) HTN, goal below 140/90 (401.9) (I10) Vitamin D deficiency (268.9) (E55.9) Dyslipidemia (272.4) (E78.5) Iron deficiency anemia (280.9) (D50.9) Cerebral embolism with cerebral infarction (434.11) (I63.40) Mitral valve disorder (394.9) (I05.9) Chronic obstructive pulmonary disease (496) (J44.9) Hypoxemia (799.02) (R09.02) Obstructive sleep apnea (327.23) (G47.33) Allergies and Adverse Reactions Macrodantin CAPS (Allergy) Reaction: Aravind h Pneumococcal Vaccines (Allergy) Reaction: Hives Zithromax TABS (Allergy) Reaction: Nause a, Diarrhea Medications Creon [id number] UNIT Oral Capsule Alcira yed Release Particles; TAKE 2 CAPSULE 3 times daily , M.D. Refills: 0 Citalopram Hydrobromide 40 MG Oral Tablet; TAKE 1 TABLET IVON LY. , M.D. Refills: 0 HYDROcodone-Homatropine 5-1.5 MG/5ML Ora l Syrup; TAKE 1 TEASPOONFUL EVERY 4 TO 6 HOURS NEEDED. , M.D. Refills: 0 Flovent 110 MCG/ACT AERO; INHALE 2 PUFFS EVERY 12 HOURS. , M .D. Refills: 0 Folic Acid 1 MG Oral Tablet; Take 1 tablet daily , M.D. Refills: 0 clonazePAM 0.5 MG Oral Tablet; TAKE 1 TABLET 3 TIMES DAILY A S NEEDED. , M.D. Refills: 0 Oxygen , M.D. Refills: 0 Aspirin 81 MG Oral Tablet Delayed Release; TAKE 1 TABLET IVON LY. , M.D. Refills: 0 Prolia 60 MG/ML SOLN; INJECT SUBCUTANEOUSLY 60 MG / 1 ML ISRRAEL SLAUGHTER 6 MONTHS , M.D. Refills: 0 Potassium Gluconate 595 (99 K) MG Oral Tablet; TAKE 1 TABLET DAILY. , .D. Refills: 0 Calcium 500 MG TABS; TAKE 1 TABLET twice daily , M.D. Refills: 0 Nitroglycerin 0.4 MG Sublingual Tablet S ublingual; PLACE 1 TABLET UNDER THE TONGUE DIRECTED. , M.D. Refills: 0 Hyoscyamine Sulfate SL 0.125 MG Sublingual Tablet Sublingual , M.D. Refills: 0 Ferrous Sulfate 325 MG CAPS; TAKE 1 CAPSULE TWICE DAILY. , M .D. Refills: 0 Lidocaine-Prilocaine 2.5-2.5 % External Cream; APPLY DIRE CTED. , .D. Refills: 0 Proventil HFA 108 (90 Base) MCG/ACT Inha lation Aerosol Solution; INHALE 2 PUFFS Every 4 hours PRN , M.D. Refills: 0 Spiriva HandiHaler 18 MCG Inhalation Cap pola; INHALE CONTENTS OF 1 CAPSULE ONCE DAILY. , M.D. Refills: 0 Fluticasone Propionate 50 MCG/ACT Nasal Suspension; USE D IRECTED. , M.D. Refills: 0 DuoNeb 0.5-2.5 (3) MG/3ML SOLN; USE 1 UN IT DOSE IN NEBULIZER EVERY 4 HOURS NEEDED. , M.D. Refills: 0 Plavix 75 MG Oral Tablet; TAKE 1 TABLET DAILY. , M.D. Refills: 0 Procedures Procedures not documented Immunizations Immunizations not documented Social History - Smoking Status Current every day smoker Interventions Follow-ups/ReferralsFollow-up as needed; Done: 26 Apr 2015 Plan of Treatment Planned Observations Planned Goals not documented Results No Known Results Results not documented
[2018-12-04] MEDS ORDERED: LORazepam 2 MG/ML VIAL (IM USE) IM STA (18:39)
[2018-12-04 19:16] LABS: Basophils # (auto) 0.06 K/uL (0-0.2); Basophils % (auto) 0.9 %; Eosinophils # (auto) 0.19 K/uL (0-0.5); Eosinophils % (auto) 2.8 %; Hematocrit (blood only) 37.6 % (37-47); Hemoglobin 12.7 g/dL (12.0-16.0); Lymphocytes # (auto) 1.33 K/uL (1.2-3.4); Lymphocytes % (auto) 19.7 %; Mean Corpuscular Hemoglobin 31.8 pg (25-34); Mean Corpuscular Hgb Conc 33.8 g/dL (32-36); Monocytes # (auto) 0.68 K/uL (0.11-0.59); Monocytes % (auto) 10.1 %; Neutrophils # (auto) 4.48 K/uL (1.4-6.5); Neutrophils % (auto) 66.5 %; Platelet Count 293 K/uL (130-400); RDW Coefficient of Variation 13.8 % (11.5-14.5); RDW Standard Deviation 47.6 fL (36.4-46.3); White Blood Count 6.74 K/uL (4.8-10.8)
--- NOTE | 2018-12-04 19:16 | XRay Report ---
XR chest 1V portable HISTORY: Altered mental status. COMPARISON: Chest 01/10/2018. FINDINGS: No pneumothorax. No pleural effusions. The heart remains mildly enlarged. Diffuse interstit ial thickening persists. Lobular appearance the right hemidiaphragm remains unchanged. This could rep resent a Bochdalek hernia. Calcified right peritracheal and right hilar lymph nodes are again noted. No new focal lung consolidations. Old, healed left-sided rib fractures. IMPRESSION: 1. Mild diffuse interstitial thickening, unchanged. This could represent mild developing pulmonary ed guido. 2. The heart is borderline enlarged. Electronically signed by: Carlo Morse M.D. 12/04/2018 7:15 PM
--- NOTE | 2018-12-04 19:28 | CT Scan Report ---
HEAD CT NONCONTRAST CT DOSE: 537.48 mGy.cm HISTORY: Altered mental status. TECHNIQUE: Multiaxial CT images of the head were performed without the use of intravenous contrast. A utomated exposure control was utilized for this study. A dose lowering technique was utilized adheri ng to the principles of ALARA. Comparison: Head CT 05/30/2016. Findings: The paranasal sinuses and mastoid air cells are clear. The calvarium and skull base are int act. There is no mass, hematoma, midline shift, acute infarct. White matter hypodensity is nonspecifi c but suggestive of microvascular ischemic change. The ventricles and sulci demonstrate mild age-rela pat involutional changes. Old right [employer] territory infarct is again noted. Impression: No significant change compared to the prior study. No acute intracranial abnormality. Electronically signed by: Carlo Morse M.D. 12/04/2018 7:27 PM
[2018-12-04 19:31] LABS: INR 1.1 (0.9-1.1); Partial Thromboplastin Ratio 0.9; Partial Thromboplastin Time 24.8 Seconds (21.0-31.0)
[2018-12-04 19:35] LABS: Albumin Level 3.4 gm/dl (3.4-5.0); BUN Creatinine Ratio 17.3 (10-20); Bilirubin Direct 0.2 mg/dl (0-0.2); Calcium 9.3 mg/dl (8.5-10.1); Creatinine Clr Calc Pharmacy 41.5 ml/min; Est GFR (African American) 65.4; Est GFR (Non-African American) 56.4; Magnesium 2.1 mg/dl (1.8-2.4); Potassium 3.7 mmol/L (3.5-5.1)
[2018-12-04 19:41] LABS: Bilirubin,Total 0.9 mg/dl (0.2-1); Total Protein 7.7 gm/dl (6.4-8.2); Troponin I 0.025 ng/ml (0-0.045)
[2018-12-04 19:49] LABS: Appearance Urine Clear (Clear); Bacteria Urine Automated Negative (Negative); Bilirubin Urine Negative (Negative); Blood Urine Trace (Negative); Color Urine Yellow; Epithelial Cell Urine Auto >30 /lpf (0-5); Glucose Urine UA Negative (Negative); Ketones Urine Trace (Negative); Leukocyte Esterase Urine Trace (Negative); Nitrite Urine Negative (Negative); Protein Urine 2+ (Negative); Specific Gravity Urine 1.015 (1.000-1.030); Urobilinogen Urine Negative (Negative); pH Urine 7.5 (4.5-7.5)
[2018-12-04 19:51] LABS: Sulfosalicylic Acid Urine Positive (Negative)
[2018-12-04 20:12] LABS: Influenza A virus by PCR Neg for Influ A (Neg); Influenza B virus by PCR Neg for Influ B (Neg)
[2018-12-04] MEDS ORDERED: METOPROLOL SUCC 50MG EXT REL TAB PO STA (21:39)
[2018-12-04] MEDS ORDERED: METOPROLOL SUCC 25MG EXT REL TAB PO STA (22:09)
--- NOTE | 2018-12-04 22:47 | History & Physical Report ---
Date of Service December 04, 2018 Assessment & Plan (1) Metabolic encephalopathy: (2) Possible urinary tract infection: (3) Dehydration: Please refer to Dr. Huynh's addendum for assessment and plan. History of Present Illness Chief Complaint: Altered mental status Primary Care Provider: Lena Quintanilla DO 73-year-old female who presents to the ED with altered mental status. Daughters are at the bedside who provides some history. Daughters have noticed some increasing confusion over the past couple of weeks. Today, patient's home health aide had reported that the patient cannot remember if she ate or drank anything today. The aide also noticed patient has been having urinary frequency since yesterday. Today patient had some chills however temperature was not taken. On exam, patient is found to have right lower extremity erythema and edema. Patient is unsure how long that has been present. She has chronic right hip/leg pain from avascular necrosis. Patient denies chest pain. She has chronic exertional shortness of breath which is unchanged from baseline. No reported lightheadedness, dizziness, diaphoresis, syncopal events. Denies abdominal pain, nausea, vomiting, diarrhea. In the ED, UA suggest possible UTI. H&H suggest hemoconcentration. Head CT is negative for acute findings. Patient was given lorazepam 1 mg IM. Allergies Allergy/AdvReac Type Severity Reaction Status Date / Time Cipro Allergy Mild ITCHY Verified 05/29/16 16:32 ciprofloxacin Allergy Mild ITCHY Verified 01/08/18 12:20 Influenza Virus Vaccines Allergy Unknown HIVES ON Unverified 01/08/18 12:20 THE SITE mivacurium Allergy Unknown unknown Verified 01/08/18 12:20 Nitrate Analogues Allergy Unknown UNSURE; Verified 01/08/18 12:20 BUT PATIENT TAKES NITROSTAT PER ADMIT MED REC. nitrofurantoin Allergy Unknown UNSURE Verified 01/08/18 12:20 pneumococcal vaccine Allergy Unknown unk Verified 01/08/18 12:20 Home Medications Home Medications Medication Instructions Recorded Confirmed Type albuterol sulfate [Ventolin HFA] 2 puff INHALATION QID PRN 12/28/17 12/04/18 History aspirin 81 mg PO DAILY 12/28/17 12/04/18 History atorvastatin 20 mg PO DAILY 12/28/17 12/04/18 History citalopram 40 mg PO DAILY 12/28/17 12/04/18 History clonazepam 0.5 mg PO TID 12/28/17 12/04/18 History clopidogrel 75 mg PO DAILY 12/28/17 12/04/18 History ferrous sulfate 325 mg PO BID 12/28/17 12/04/18 History fluticasone propionate 2 spray INTRANASAL DAILY PRN 12/28/17 12/04/18 History folic acid 1 mg PO DAILY 12/28/17 12/04/18 History gabapentin 100 mg PO TID 12/28/17 12/04/18 History ipratropium-albuterol 3 ml INHALATION Q6H PRN 12/28/17 12/04/18 History metoprolol succinate 12.5 mg PO DAILY 12/28/17 12/04/18 History nitroglycerin 0.4 mg SUBLINGUAL UD PRN 12/28/17 12/04/18 History omeprazole 20 mg PO DAILY 12/28/17 12/04/18 History prednisone 10 mg PO DAILY PRN 12/28/17 12/04/18 History umeclidinium 1 inh INHALATION DAILY 12/28/17 12/04/18 History levofloxacin [Levaquin] 500 mg PO DAILY PRN 01/08/18 12/04/18 History furosemide 20 mg PO DAILY #40 tab 01/11/18 12/04/18 Rx docusate sodium [Colace] 100 mg PO BID 12/04/18 12/04/18 History hydrocodone-acetaminophen 1 tab PO Q8H PRN 12/04/18 12/04/18 History oxycodone [OxyContin] 10 mg PO Q12H 12/04/18 12/04/18 History potassium gluconate 550 mg PO DAILY 12/04/18 12/04/18 History Past Med/Surg History Medical History Chronic respiratory failure with hypoxia (Chronic) Lumbar back pain (Chronic) Hip pain, right (Chronic) Diastolic CHF (Chronic) CAD (coronary artery disease) (Chronic) Cardiac cath 2010-nonobstructive disease History of hysterectomy (Chronic) Pancreatic duct stricture (Chronic) S/P stent IPMN (intraductal papillary mucinous neoplasm) (Chronic) Recurrent pancreatitis (Chronic) PAD (peripheral artery disease) (Chronic) S/P stenting of the right distal common and right external iliac arteries Avascular necrosis (Chronic) COPD (chronic obstructive pulmonary disease) (Chronic) Carotid stenosis (Chronic) DAYNA (iron deficiency anemia) (Chronic) Sleep apnea (Chronic) Dyslipidemia (Chronic) CVA (cerebral vascular accident) (Chronic) Depression (Chronic) Hypertension (Chronic) Tobacco use disorder (Chronic) Surgical History History of appendectomy (Chronic) History of cholecystectomy (Chronic) H/O ventral hernia repair (Chronic) Family History Mother Stroke Father Stroke Social History Preferred Language: Korean Communication Ability: confused Visual Impairment: No Limitations [employer] Operator Required: No Beliefs That Will Affect Care: None marital status: / Current Living Situation: Alone Current Living Situation Comment: alone with home health Feels Safe at Home: Yes Safety Concerns: Feels Safe At This Time Smoking Status: Current every day smoker Tobacco Type: cigarettes ; Cigarettes Per Day: 30 ; Hx Alcohol Use: Yes Alcohol type: wine Hx Substance Use: No Review of Systems Review of Systems: Reviewed with patient however felt to be somewhat unreliable due to altered mental status. Physical Exam Constitutional: + thin; no acute distress Vitals as noted Eyes: PERRL, conjunctivae normal, anicteric sclerae ENMT: external ear and nose normal, oropharynx normal Respiratory: normal respiratory effort, lungs clear to auscultation Cardiovascular: Rate/Rhythm: regular rate and regular rhythm Vessels: normal peripheral pulses Extremities: + edema (RLE +2) Gastrointestinal (Abdomen): normal bowel sounds, soft, nontender, no hepatosplenomegaly Musculoskeletal: no cyanosis or clubbing, extremities motor strength 5/5 Skin: no rashes, warm and dry Erythema noted to distal RLE/foot and warm to touch Neurologic: PERRL, EOMI, accommodation nl, no face palsy, no dysarthria Psychiatric: Orientation: alert, oriented to person and oriented to place; + not oriented to time Cognition: + recent memory not intact Insight: + limited insight Results & Data Vital Signs (Past 12 Hours) Vital Signs Temp Pulse Resp BP Pulse Ox 12/04/18 22:00 86 19 194/88 H 94 12/04/18 21:45 84 16 197/81 H 93 12/04/18 21:30 85 17 203/80 H 91 12/04/18 21:15 83 15 199/80 H 93 12/04/18 21:00 85 16 210/90 H 92 12/04/18 20:45 87 15 178/91 H 94 12/04/18 20:30 86 18 158/126 H 91 12/04/18 20:15 86 18 201/100 H 91 12/04/18 20:09 87 L 12/04/18 20:00 86 24 220/99 H 89 L 12/04/18 19:45 88 18 194/126 H 92 12/04/18 19:30 88 19 206/92 H 89 L 12/04/18 19:00 92 H 20 91 12/04/18 18:45 90 23 218/110 H 90 12/04/18 18:30 83 22 211/92 H 94 12/04/18 18:24 81 17 12/04/18 18:14 36.8 C 80 19 215/116 H 96 12/04/18 18:12 78 19 215/116 H 95 Laboratory Results Short CBC 12/04/18 Range/Units 19:05 WBC 6.74 (4.8-10.8) K/uL Hgb 12.7 (12.0-16.0) g/dL Hct 37.6 (37-47) % Plt Count 293 (130-400) K/uL BMP 12/04/18 19:05 Sodium 140 Potassium 3.7 Chloride 106 Carbon Dioxide 26 BUN 17 Creatinine 0.98 Glucose 97 Calcium 9.3 Cardiac Enzymes 12/04/18 Range/Units 19:05 Troponin I 0.025 (0-0.045) ng/ml Liver Function 12/04/18 Range/Units 19:05 Total Bilirubin 0.9 (0.2-1) mg/dl Direct Bilirubin 0.2 (0-0.2) mg/dl AST 10 L (15-37) U/L ALT 9 L (12-78) U/L Alkaline Phosphatase 102 (45-117) U/L Albumin 3.4 (3.4-5.0) gm/dl Urine 12/04/18 Range/Units 19:40 Urine Color Yellow Urine Appearance Clear (Clear) Urine pH 7.5 (4.5-7.5) Ur Specific [place] 1.015 (1.000-1.030) Urine Protein 2+ H (Negative) Urine Glucose (UA) Negative (Negative) Diagnostic Findings CXR IMPRESSION: 1. Mild diffuse interstitial thickening, unchanged. This could represent mild developing pulmonary edema. 2. The heart is borderline enlarged. HEAD CT IMPRESSION: No significant change compared to the prior study. No acute intracranial abnormality. Code Status & VTE Plan VTE Prophylaxis Plan VTE Prophylaxis will be ordered: Yes Supervising Physician Co-Signing Physician Notes IM ATTENDING : Patient seen and examined. History obtained from patient, family, and records. Patient is a fair historian. Preceding documentation by HARRY Dwyer reviewed. FINAL ASSESSMENT AND PLAN as follows : Encephalopathy Multifactorial : Acute on chronic hypoxemic respiratory failure secondary to COPD,home O2 nonco mpliant as per patient's daughter Hypertensive urgency, ? Compliance, uncontrolled right hip pain secondary to avascular necrosis, right hip (patient poor candidate for surgery as per records) Complicated UTI, hx Ceftriaxone resistant E. coli and enterococcus on previous urine cultures, no sepsis Home narcotics/neuropsychotropics contributory Chronic diastolic heart failure, equivocal volume status (Abnormal BNP, pulmonary congestion on CXR in the setting of ketonuria, hemoconcentration) hx CAD/CVA/PVD as per records Ongoing tobacco abuse PCU Supplemental O2 Baseline ABG Titrate home beta-rasta and lisinopril to regimen Follow urine cultures, IV Zosyn Hold home narcotics/neuropsychotropic support sedation confusion Continue home Lasix Nicotine patch PT OT eval. VT prophylaxis. Lovenox subcu Full code Patient's daughter requesting updates from providers. Ms. Milagro Amador, contact #[phone].
[2018-12-04] MEDS ORDERED: PIPERACILL/TAZOBAC CONSULT ACTIVE PRN (23:02)
--- NOTE | 2018-12-04 23:39 | Emergency Department Note ---
Entered by Shakira Aldrich acting as a scribe for History of Present Illness General Chief complaint: Altered Mental Status Stated complaint: ams/headache Time Seen by Provider: 12/04/18 18:34 Source: patient and family History of Present Illness Provider complaint: altered mental status Onset (ago): unknown Location: head Pain Consistency: + other (episode) Quality: + other (altered mental status) Associated symptoms: + denies other symptoms (pain) and + other (has not ate or drank anything today, will not talk, more disoriented than usual, everyday smoker, in wheelchair secondary to stroke) The patient is a 73 year old female who presents to the ED with complaints of an episode of altered mental status that started at an unknown time. Per daughter, the patient has not ate or drank anything today. The patients daughter states that the patient has not been talking today either. Per daughter, the patient is intermittently disoriented at baseline but seems more disoriented today. The patient denies pain. The patient states that she is an everyday smoker. Per daughter, the patient is in a wheelchair secondary to a stroke. The patients daughter states that she does not feel comfortable taking care of the patient at home. Home Medications Home Medications Medication Instructions Recorded Confirmed Type albuterol sulfate [Ventolin HFA] 2 puff INHALATION QID PRN 12/28/17 12/04/18 History aspirin 81 mg PO DAILY 12/28/17 12/04/18 History atorvastatin 20 mg PO DAILY 12/28/17 12/04/18 History citalopram 40 mg PO DAILY 12/28/17 12/04/18 History clonazepam 0.5 mg PO TID 12/28/17 12/04/18 History clopidogrel 75 mg PO DAILY 12/28/17 12/04/18 History ferrous sulfate 325 mg PO BID 12/28/17 12/04/18 History fluticasone propionate 2 spray INTRANASAL DAILY PRN 12/28/17 12/04/18 History folic acid 1 mg PO DAILY 12/28/17 12/04/18 History gabapentin 100 mg PO TID 12/28/17 12/04/18 History ipratropium-albuterol 3 ml INHALATION Q6H PRN 12/28/17 12/04/18 History metoprolol succinate 12.5 mg PO DAILY 12/28/17 12/04/18 History nitroglycerin 0.4 mg SUBLINGUAL UD PRN 12/28/17 12/04/18 History omeprazole 20 mg PO DAILY 12/28/17 12/04/18 History prednisone 10 mg PO DAILY PRN 12/28/17 12/04/18 History umeclidinium 1 inh INHALATION DAILY 12/28/17 12/04/18 History levofloxacin [Levaquin] 500 mg PO DAILY PRN 01/08/18 12/04/18 History furosemide 20 mg PO DAILY #40 tab 01/11/18 12/04/18 Rx docusate sodium [Colace] 100 mg PO BID 12/04/18 12/04/18 History hydrocodone-acetaminophen 1 tab PO Q8H PRN 12/04/18 12/04/18 History oxycodone [OxyContin] 10 mg PO Q12H 12/04/18 12/04/18 History potassium gluconate 550 mg PO DAILY 12/04/18 12/04/18 History Allergies Allergy/AdvReac Type Severity Reaction Status Date / Time Cipro Allergy Mild ITCHY Verified 05/29/16 16:32 ciprofloxacin Allergy Mild ITCHY Verified 01/08/18 12:20 Influenza Virus Vaccines Allergy Unknown HIVES ON Unverified 01/08/18 12:20 THE SITE mivacurium Allergy Unknown unknown Verified 01/08/18 12:20 Nitrate Analogues Allergy Unknown UNSURE; Verified 01/08/18 12:20 BUT PATIENT TAKES NITROSTAT PER ADMIT MED REC. nitrofurantoin Allergy Unknown UNSURE Verified 01/08/18 12:20 pneumococcal vaccine Allergy Unknown unk Verified 01/08/18 12:20 Past Med/Surg History Medical History Chronic respiratory failure with hypoxia (Chronic) Lumbar back pain (Chronic) Hip pain, right (Chronic) Diastolic CHF (Chronic) CAD (coronary artery disease) (Chronic) Cardiac cath 2010-nonobstructive disease History of hysterectomy (Chronic) Pancreatic duct stricture (Chronic) S/P stent IPMN (intraductal papillary mucinous neoplasm) (Chronic) Recurrent pancreatitis (Chronic) PAD (peripheral artery disease) (Chronic) S/P stenting of the right distal common and right external iliac arteries Avascular necrosis (Chronic) COPD (chronic obstructive pulmonary disease) (Chronic) Carotid stenosis (Chronic) DAYNA (iron deficiency anemia) (Chronic) Sleep apnea (Chronic) Dyslipidemia (Chronic) CVA (cerebral vascular accident) (Chronic) Depression (Chronic) Hypertension (Chronic) Tobacco use disorder (Chronic) Surgical History History of appendectomy (Chronic) History of cholecystectomy (Chronic) H/O ventral hernia repair (Chronic) Family History Mother Stroke Father Stroke Social History Preferred Language: Danish Communication Ability: Effective Visual Impairment: No Limitations Cashier Clerk Required: No Beliefs That Will Affect Care: None marital status: / Current Living Situation: Family Feels Safe at Home: Yes Smoking Status: Current every day smoker Tobacco Type: cigarettes ; Cigarettes Per Day: 30 ; Hx Alcohol Use: Yes Alcohol type: wine Hx Substance Use: No Review of Systems See HPI for pertinent positives & negatives. and A total of 10 systems reviewed and were otherwise negative Physical Exam Vital Signs Vital Signs - 24 hr 12/04/18 18:12 12/04/18 18:14 12/04/18 18:24 Temperature 36.8 C Temperature Source Oral Sepsis Recent Fever Within 48 Hours No Sepsis New/Unexplained Change in Mental Status Yes Sepsis Action Taken by Nursing No Action Required Oxygen Flow Rate - Titration Pulse Oximetry Post Tiitration Pulse Rate 78 80 81 Pulse Rate from SpO2 Sensor 78 Respiratory Rate 19 19 17 Respiratory Effort / Characteristics Non-Labored Spontaneous Respiratory Depth Normal Respiratory Pattern Regular Blood Pressure 215/116 H 215/116 H Blood Pressure Mean 149 149 Pulse Oximetry 95 96 Oxygen Delivery Method Room Air Fraction of Inspired Oxygen 12/04/18 18:30 12/04/18 18:45 12/04/18 19:00 Temperature Temperature Source Sepsis Recent Fever Within 48 Hours Sepsis New/Unexplained Change in Mental Status Sepsis Action Taken by Nursing Oxygen Flow Rate - Titration Pulse Oximetry Post Tiitration Pulse Rate 83 90 92 H Pulse Rate from SpO2 Sensor 84 90 90 Respiratory Rate 22 23 20 Respiratory Effort / Characteristics Respiratory Depth Respiratory Pattern Blood Pressure 211/92 H 218/110 H Blood Pressure Mean 131 146 Pulse Oximetry 94 90 91 Oxygen Delivery Method Fraction of Inspired Oxygen 12/04/18 19:30 12/04/18 19:45 12/04/18 20:00 Temperature Temperature Source Sepsis Recent Fever Within 48 Hours Sepsis New/Unexplained Change in Mental Status Sepsis Action Taken by Nursing Oxygen Flow Rate - Titration Pulse Oximetry Post Tiitration Pulse Rate 88 88 86 Pulse Rate from SpO2 Sensor 87 87 87 Respiratory Rate 19 18 24 Respiratory Effort / Characteristics Respiratory Depth Respiratory Pattern Blood Pressure 206/92 H 194/126 H 220/99 H Blood Pressure Mean 130 148 139 Pulse Oximetry 89 L 92 89 L Oxygen Delivery Method Fraction of Inspired Oxygen 12/04/18 20:09 12/04/18 20:15 12/04/18 20:30 Temperature Temperature Source Sepsis Recent Fever Within 48 Hours Sepsis New/Unexplained Change in Mental Status Sepsis Action Taken by Nursing Oxygen Flow Rate - Titration 2 Pulse Oximetry Post Tiitration 93 Pulse Rate 86 86 Pulse Rate from SpO2 Sensor 86 86 Respiratory Rate 18 18 Respiratory Effort / Characteristics Respiratory Depth Respiratory Pattern Blood Pressure 201/100 H 158/126 H Blood Pressure Mean 133 136 Pulse Oximetry 87 L 91 91 Oxygen Delivery Method Room Air Fraction of Inspired Oxygen 12/04/18 20:45 12/04/18 21:00 12/04/18 21:15 Temperature Temperature Source Sepsis Recent Fever Within 48 Hours Sepsis New/Unexplained Change in Mental Status Sepsis Action Taken by Nursing Oxygen Flow Rate - Titration Pulse Oximetry Post Tiitration Pulse Rate 87 85 83 Pulse Rate from SpO2 Sensor 86 83 84 Respiratory Rate 15 16 15 Respiratory Effort / Characteristics Respiratory Depth Respiratory Pattern Blood Pressure 178/91 H 210/90 H 199/80 H Blood Pressure Mean 120 130 119 Pulse Oximetry 94 92 93 Oxygen Delivery Method Nasal Cannula Fraction of Inspired Oxygen 2 12/04/18 21:30 12/04/18 21:45 12/04/18 22:00 Temperature Temperature Source Sepsis Recent Fever Within 48 Hours Sepsis New/Unexplained Change in Mental Status Sepsis Action Taken by Nursing Oxygen Flow Rate - Titration Pulse Oximetry Post Tiitration Pulse Rate 85 84 86 Pulse Rate from SpO2 Sensor 85 84 87 Respiratory Rate 17 16 19 Respiratory Effort / Characteristics Respiratory Depth Respiratory Pattern Blood Pressure 203/80 H 197/81 H 194/88 H Blood Pressure Mean 121 119 123 Pulse Oximetry 91 93 94 Oxygen Delivery Method Fraction of Inspired Oxygen GENERAL: Screaming and yelling. HENT: Exam performed. -Head: Normocephalic and atraumatic. -Right Ear: External ear normal. No mastoid tenderness. -Left Ear: External ear normal. No mastoid tenderness. -Mouth/Throat: The oropharynx is clear and moist. No trismus in the jaw. No de ntal abscesses or uvula swelling. No oropharyngeal exudate or tonsillar abscesses. EYES: Conjunctivae and EOM are normal. Pupils are equal, round, and reactive to light. Right eye exhibits no discharge. Left eye exhibits no discharge. No scleral icterus. NECK: Supple. CV: Normal rate, regular rhythm, normal heart sounds and intact distal pulses. There is no peripheral edema. Palpable radial pulses bue. PULM/CHEST: Effort normal and breath sounds normal. No respiratory distress. No stridor. She has no wheezes. She has no rales. Chest Wall: She exhibits no tenderness. ABD: The abdomen is soft. Nontender to palpation. NEURO: Motor and sensation grossly intact. Alert and oriented x 2. Course 1833: Past medical records reviewed. The patient was evaluated in room A10. A complete history and physical exam was performed. 2052: Vitals stable on supplemental oxygen. The patient's daughter states that the patient is supposed to wear oxygen at home but is non-compliant. Labs and imagine within normal limits. Status post administration of Ativan, the patient is much more calm and able to cooperate with exam. This time she is alert and oriented x3. Discussed with daughters at bedside and they state that they do not feel comfortable taking care of the patient at home and they request admission for observation. I told them that I would speak to the [facility] Hospitalist. 2117: I discussed the patient's case with Dr[facility] Elis Kimball, [facility]. He will evaluate the patient for further management. Consultations Consultation #1: I discussed the patient's case with Dr. Elis Kimball, Hospitalist. He will evaluate the patient for further management. Time: 21:18 Administered Medications Discontinued Medications Lorazepam (Ativan) 1 mg IM NOW STA Stop: 12/04/18 18:40 Last Admin: 12/04/18 18:49 Dose: 1 mg Documented by: [id number] Metoprolol Succinate (Toprol Xl) 12.5 mg PO NOW STA Stop: 12/04/18 22:10 Last Admin: 12/04/18 22:29 Dose: 12.5 mg Documented by: [id number] Medical Decision Making Medical Records Attestation: I reviewed the patient's medical records. Home Medications Current Medication List: was personally reviewed by me Laboratory Data Attestation: I reviewed the patient's lab results. Result diagrams: 12/04/18 19:05 12/04/18 19:05 Lab Results 12/04/18 12/04/18 12/04/18 Range/Units 19:05 19:05 19:05 WBC 6.74 (4.8-10.8) K/uL RBC 4.00 L (4.2-5.4) M/uL Hgb 12.7 (12.0-16.0) g/dL Hct 37.6 (37-47) % MCV 94.0 (80-100) fL MCH 31.8 (25-34) pg MCHC 33.8 (32-36) g/dL RDW Std Deviation 47.6 H (36.4-46.3) fL RDW Coeff of Sriram 13.8 (11.5-14.5) % Plt Count 293 (130-400) K/uL MPV 9.0 (7.4-10.4) fL Immature Gran % (Auto) 0.0 % Neut % (Auto) 66.5 % Lymph % (Auto) 19.7 % Meriwether % (Auto) 10.1 % Eos % (Auto) 2.8 % Baso % (Auto) 0.9 % Immature Gran # (Auto) 0.00 (0.00-0.02) K/uL Neut # (Auto) 4.48 (1.4-6.5) K/uL Lymph # (Auto) 1.33 (1.2-3.4) K/uL Meriwether # (Auto) 0.68 H (0.11-0.59) K/uL Eos # (Auto) 0.19 (0-0.5) K/uL Baso # (Auto) 0.06 (0-0.2) K/uL PT 11.0 (9.0-12.0) Seconds INR 1.1 (0.9-1.1) APTT 24.8 (21.0-31.0) Seconds PTT Ratio 0.9 Sodium 140 (136-145) mmol/L Potassium 3.7 (3.5-5.1) mmol/L Chloride 106 (98-107) mmol/L Carbon Dioxide 26 (21-32) mmol/L Anion Gap 9.0 (3-11) BUN 17 (7-18) mg/dl Creatinine 0.98 (0.6-1.2) mg/dl Est Cr Clr Drug Dosing 41.5 ml/min Est GFR ( Amer) 65.4 Est GFR (Non-Af Amer) 56.4 BUN/Creatinine Ratio 17.3 (10-20) Glucose 97 (70-99) mg/dl Lactate (0.4-2.0) mmol/L Calcium 9.3 (8.5-10.1) mg/dl Magnesium 2.1 (1.8-2.4) mg/dl Total Bilirubin 0.9 (0.2-1) mg/dl Direct Bilirubin 0.2 (0-0.2) mg/dl AST 10 L (15-37) U/L ALT 9 L (12-78) U/L Alkaline Phosphatase 102 (45-117) U/L Troponin I 0.025 (0-0.045) ng/ml NT-Pro-B Natriuret Pep 67643 H (0-900) pg/ml Total Protein 7.7 (6.4-8.2) gm/dl Albumin 3.4 (3.4-5.0) gm/dl Lipase 341 (73-393) U/L Urine Color Urine Appearance (Clear) Urine pH (4.5-7.5) Ur Specific Turner (1.000-1.030) Urine Protein (Negative) Urine Glucose (UA) (Negative) Urine Ketones (Negative) Urine Blood (Negative) Urine Nitrite (Negative) Urine Bilirubin (Negative) Urine Urobilinogen (Negative) Ur Leukocyte Esterase (Negative) Urine WBC (Auto) (0-5) /hpf Urine RBC (Auto) (0-4) /hpf U Hyaline Cast (Auto) (0-5) /lpf U Epithel Cells (Auto) (0-5) /lpf Urine Bacteria (Auto) (Negative) Urine Yeast Influenza Type A (PCR) (Neg) Influenza Type B (PCR) (Neg) 12/04/18 12/04/18 12/04/18 Range/Units 19:05 19:40 19:53 WBC (4.8-10.8) K/uL RBC (4.2-5.4) M/uL Hgb (12.0-16.0) g/dL Hct (37-47) % MCV (80-100) fL MCH (25-34) pg MCHC (32-36) g/dL RDW Std Deviation (36.4-46.3) fL RDW Coeff of Sriram (11.5-14.5) % Plt Count (130-400) K/uL MPV (7.4-10.4) fL Immature Gran % (Auto) % Neut % (Auto) % Lymph % (Auto) % Meriwether % (Auto) % Eos % (Auto) % Baso % (Auto) % Immature Gran # (Auto) (0.00-0.02) K/uL Neut # (Auto) (1.4-6.5) K/uL Lymph # (Auto) (1.2-3.4) K/uL Meriwether # (Auto) (0.11-0.59) K/uL Eos # (Auto) (0-0.5) K/uL Baso # (Auto) (0-0.2) K/uL PT (9.0-12.0) Seconds INR (0.9-1.1) APTT (21.0-31.0) Seconds PTT Ratio Sodium (136-145) mmol/L Potassium (3.5-5.1) mmol/L Chloride (98-107) mmol/L Carbon Dioxide (21-32) mmol/L Anion Gap (3-11) BUN (7-18) mg/dl Creatinine (0.6-1.2) mg/dl Est Cr Clr Drug Dosing ml/min Est GFR ( Amer) Est GFR (Non-Af Amer) BUN/Creatinine Ratio (10-20) Glucose (70-99) mg/dl Lactate 1.3 (0.4-2.0) mmol/L Calcium (8.5-10.1) mg/dl Magnesium (1.8-2.4) mg/dl Total Bilirubin (0.2-1) mg/dl Direct Bilirubin (0-0.2) mg/dl AST (15-37) U/L ALT (12-78) U/L Alkaline Phosphatase (45-117) U/L Troponin I (0-0.045) ng/ml NT-Pro-B Natriuret Pep Cancelled (0-900) pg/ml Total Protein (6.4-8.2) gm/dl Albumin (3.4-5.0) gm/dl Lipase (73-393) U/L Urine Color Yellow Urine Appearance Clear (Clear) Urine pH 7.5 (4.5-7.5) Ur Specific Turner 1.015 (1.000-1.030) Urine Protein 2+ H (Negative) Urine Glucose (UA) Negative (Negative) Urine Ketones Trace H (Negative) Urine Blood Trace H (Negative) Urine Nitrite Negative (Negative) Urine Bilirubin Negative (Negative) Urine Urobilinogen Negative (Negative) Ur Leukocyte Esterase Trace H (Negative) Urine WBC (Auto) 10-30 H (0-5) /hpf Urine RBC (Auto) 5-10 H (0-4) /hpf U Hyaline Cast (Auto) 1-5 (0-5) /lpf U Epithel Cells (Auto) >30 H (0-5) /lpf Urine Bacteria (Auto) Negative (Negative) Urine Yeast Not Reportable Influenza Type A (PCR) (Neg) Influenza Type B (PCR) (Neg) 12/04/18 Range/Units Unknown WBC (4.8-10.8) K/uL RBC (4.2-5.4) M/uL Hgb (12.0-16.0) g/dL Hct (37-47) % MCV (80-100) fL MCH (25-34) pg MCHC (32-36) g/dL RDW Std Deviation (36.4-46.3) fL RDW Coeff of Sriram (11.5-14.5) % Plt Count (130-400) K/uL MPV (7.4-10.4) fL Immature Gran % (Auto) % Neut % (Auto) % Lymph % (Auto) % Meriwether % (Auto) % Eos % (Auto) % Baso % (Auto) % Immature Gran # (Auto) (0.00-0.02) K/uL Neut # (Auto) (1.4-6.5) K/uL Lymph # (Auto) (1.2-3.4) K/uL Meriwether # (Auto) (0.11-0.59) K/uL Eos # (Auto) (0-0.5) K/uL Baso # (Auto) (0-0.2) K/uL PT (9.0-12.0) Seconds INR (0.9-1.1) APTT (21.0-31.0) Seconds PTT Ratio Sodium (136-145) mmol/L Potassium (3.5-5.1) mmol/L Chloride (98-107) mmol/L Carbon Dioxide (21-32) mmol/L Anion Gap (3-11) BUN (7-18) mg/dl Creatinine (0.6-1.2) mg/dl Est Cr Clr Drug Dosing ml/min Est GFR ( Amer) Est GFR (Non-Af Amer) BUN/Creatinine Ratio (10-20) Glucose (70-99) mg/dl Lactate (0.4-2.0) mmol/L Calcium (8.5-10.1) mg/dl Magnesium (1.8-2.4) mg/dl Total Bilirubin (0.2-1) mg/dl Direct Bilirubin (0-0.2) mg/dl AST (15-37) U/L ALT (12-78) U/L Alkaline Phosphatase (45-117) U/L Troponin I (0-0.045) ng/ml NT-Pro-B Natriuret Pep (0-900) pg/ml Total Protein (6.4-8.2) gm/dl Albumin (3.4-5.0) gm/dl Lipase (73-393) U/L Urine Color Urine Appearance (Clear) Urine pH (4.5-7.5) Ur Specific Turner (1.000-1.030) Urine Protein (Negative) Urine Glucose (UA) (Negative) Urine Ketones (Negative) Urine Blood (Negative) Urine Nitrite (Negative) Urine Bilirubin (Negative) Urine Urobilinogen (Negative) Ur Leukocyte Esterase (Negative) Urine WBC (Auto) (0-5) /hpf Urine RBC (Auto) (0-4) /hpf U Hyaline Cast (Auto) (0-5) /lpf U Epithel Cells (Auto) (0-5) /lpf Urine Bacteria (Auto) (Negative) Urine Yeast Influenza Type A (PCR) Neg for Influ A (Neg) Influenza Type B (PCR) Neg for Influ B (Neg) Imaging Data Radiologist's Impression: Radiology results as stated below per my review and the radiologist's interpretation: HEAD CT NONCONTRAST CT DOSE: 537.48 mGy.cm HISTORY: Altered mental status. TECHNIQUE: Multiaxial CT images of the head were performed without the use of intravenous contrast. Automated exposure control was utilized for this study. A dose lowering technique was utilized adhering to the principles of ALARA. Comparison: Head CT 05/30/2016. Findings: The paranasal sinuses and mastoid air cells are clear. The calvarium and skull base are intact. There is no mass, hematoma, midline shift, acute infarct. White matter hypodensity is nonspecific but suggestive of microvascular ischemic change. The ventricles and sulci demonstrate mild age-related involutional changes. Old right MANAGER MALL territory infarct is again noted. Impression: No significant change compared to the prior study. No acute intracranial abnormality. Electronically signed by: Carlo Morse M.D. 12/04/2018 7:27 PM XR chest 1V portable HISTORY: Altered mental status. COMPARISON: Chest 01/10/2018. FINDINGS: No pneumothorax. No pleural effusions. The heart remains mildly enlarged. Diffuse interstitial thickening persists. Lobular appearance the right hemidiaphragm remains unchanged. This could represent a Bochdalek hernia. Calcified right peritracheal and right hilar lymph nodes are again noted. No new focal lung consolidations. Old, healed left-sided rib fractures. IMPRESSION: 1. Mild diffuse interstitial thickening, unchanged. This could represent mild developing pulmonary edema. 2. The heart is borderline enlarged. Electronically signed by: Carlo Morse M.D. 12/04/2018 7:15 PM ECG Data Attestation: I personally reviewed and interpreted this ECG as follows: Indication: altered mental status Rate (beats per minute): 78 Rhythm: sinus rhythm Findings: + other (MA, QRS, QTC within normal limits, baseline wonder) and + PVC; no ST depression and no ST elevation Blood Pressure Blood Pressure Findings: Elevated blood pressure Blood Pressure Disposition: further management by hospitalist RAYMOND Narrative 1833: Past medical records reviewed. The patient was evaluated in room A10. A complete history and physical exam was performed. 2052: Vitals stable on supplemental oxygen. The patient's daughter states that the patient is supposed to wear oxygen at home but is non-compliant. Labs and imagine within normal limits. Status post administration of Ativan, the patient is much more calm and able to cooperate with exam. This time she is alert and oriented x3. Discussed with daughters at bedside and they state that they do not feel comfortable taking care of the patient at home and they request admission for observation. I told them that I would speak to the [facility] Hospitalist. 2117: I discussed the patient's case with Dr. Elis Kimball, Hospitalist. He will evaluate the patient for further management. Impression & Plan Altered mental status Discharge Plan Visit Data Chief Complaint: Altered Mental Status Stated Complaint: ams/headache ED Provider: Jean Bazan Discharge Problem: Altered mental status Patient Disposition: Being Evaluated by Hospitalist Forms Stand Alone Forms: My [facility] Prescriptions Prescriptions: No Action prednisone 10 mg Tablet 10 mg PO DAILY PRN (Reason: Shortness Of Breath) RF: 0 atorvastatin 20 mg tablet 20 mg PO DAILY RF: 0 ipratropium-albuterol 0.5 mg-3 mg(2.5 mg base)/3 mL Solution For Nebulization 3 ml INHALATION Q6H PRN (Reason: Shortness Of Breath) RF: 0 citalopram 40 mg tablet 40 mg PO DAILY RF: 0 clonazepam 0.5 mg tablet 0.5 mg PO TID RF: 0 clopidogrel 75 mg tablet 75 mg PO DAILY RF: 0 aspirin 81 mg Tablet,Delayed Release (Dr/Ec) 81 mg PO DAILY RF: 0 ferrous sulfate 325 mg (65 mg iron) Tablet 325 mg PO BID RF: 0 nitroglycerin 0.4 mg tablet, sublingual 0.4 mg Sublingual UD PRN (Reason: Chest Pain) RF: 0 omeprazole 20 mg capsule,delayed release(DR/EC) 20 mg PO DAILY RF: 0 folic acid 1 mg Tablet 1 mg PO DAILY RF: 0 gabapentin 100 mg capsule 100 mg PO TID RF: 0 metoprolol succinate 25 mg tablet extended release 24 hr 12.5 mg PO DAILY RF: 0 albuterol sulfate [Ventolin HFA] 90 mcg/actuation Hfa Aerosol Inhaler 2 puff INHALATION QID PRN (Reason: Shortness Of Breath) RF: 0 fluticasone propionate 50 mcg/actuation [place],Suspension 2 spray INTRANASAL DAILY PRN (Reason: Nasal Congestion) RF: 0 umeclidinium 62.5 mcg/actuation blister with device 1 inh Inhalation DAILY RF: 0 hydrocodone-acetaminophen 5-325 mg tablet 1 tab PO Q8H PRN (Reason: Pain) RF: 0 docusate sodium [Colace] 100 mg Capsule 100 mg PO BID RF: 0 potassium gluconate 550 mg (90 mg) Tablet 550 mg PO DAILY RF: 0 oxycodone [OxyContin] 10 mg tablet,oral only,ext.rel.12 hr 10 mg PO Q12H RF: 0 levofloxacin [Levaquin] 500 mg Tablet 500 mg PO DAILY PRN (Reason: shortness of breath) RF: 0 furosemide 20 mg Tablet 20 mg PO DAILY Qty: 40 RF: 0 Referrals Referrals: Lena Quintanilla DO [Primary Care Provider] - The scribe's documentation has been prepared under my direction and personally reviewed by me in its entirety. I confirm that the note above accurately reflects all work, treatment, procedures, and medical decision making performed by me.
[2018-12-04] MEDS ORDERED: PIPERACILLIN/TAZOBACTAM 4.5 GM/120 ML BAG IV ONE (23:45)
[2018-12-04 23:56] LABS: Base Excess VBG 5.8 mEq/L; HCO3 VBG 30 mmol/L; Oxygen Saturation VBG 63.4 %; PCO2 VBG 42 mmHg (38-50); PO2 VBG 32 mmHg; pH VBG 7.47 (7.36-7.41)
[2018-12-05] MEDS ORDERED: lisinopriL 5 MG TAB PO ONE (00:45)
[2018-12-05] MEDS ORDERED: ACETAMINOPHEN 325 MG TAB PO PRN (01:18)
[2018-12-05] MEDS ORDERED: NITROGLYCERIN SL 0.4 MG/TAB TAB SL PRN (01:18)
[2018-12-05] MEDS ORDERED: FLUTICASONE PROPIONATE NA SPR 16 GM BTL PRN (01:18)
[2018-12-05 01:46] LABS: Amphetamines+Metham, Urine Neg (Neg); Barbiturates, Urine Neg (Neg); Benzodiazepine, Urine Neg (Neg); Cocaine, Urine Neg (Neg); MDMA (Ecstacy), Urine Neg (Neg); Methadone, Urine Neg (Neg); Opiate, Urine Neg (Neg); Phencyclidine, Urine Neg (Neg)
[2018-12-05] MEDS ORDERED: POLYETHYLENE (MIRALAX) 17 GM PACK PO PRN (02:07)
[2018-12-05] MEDS: DOCUSATE SODIUM/SENNA 50/8.6MG TAB PO SCH ×3 (02:58→20:53)
[2018-12-05] MEDS: FUROSEMIDE 20 MG TAB PO SCH (02:58)
[2018-12-05] MEDS: PIPERACILLIN/TAZOBACTAM 3.375 GM in DEXTROSE 5% 100 ML IV SCH ×3 (06:12→21:05)
[2018-12-05 06:31] LABS: Basophils # (auto) 0.06 K/uL (0-0.2); Eosinophils # (auto) 0.32 K/uL (0-0.5); Eosinophils % (auto) 5.3 %; Hematocrit (blood only) 36.4 % (37-47); Hemoglobin 11.9 g/dL (12.0-16.0); Immature Granulocytes # (auto) 0.01 K/uL (0.00-0.02); Immature Granulocytes % (auto) 0.2 %; Lymphocytes # (auto) 0.94 K/uL (1.2-3.4); Lymphocytes % (auto) 15.6 %; Mean Corpuscular Hemoglobin 31.2 pg (25-34); Mean Corpuscular Hgb Conc 32.7 g/dL (32-36); Mean Corpuscular Volume 95.5 fL (80-100); Mean Platelet Volume 9.3 fL (7.4-10.4); Monocytes # (auto) 0.78 K/uL (0.11-0.59); Monocytes % (auto) 12.9 %; Neutrophils # (auto) 3.92 K/uL (1.4-6.5); Platelet Count 262 K/uL (130-400); RDW Standard Deviation 49.1 fL (36.4-46.3); Red Blood Count 3.81 M/uL (4.2-5.4); White Blood Count 6.03 K/uL (4.8-10.8)
--- NOTE | 2018-12-05 06:39 | Ultrasound Report ---
US venous doppler LE RT CLINICAL HISTORY: RLE swelling COMPARISON STUDY: May 2016 FINDINGS: Real-time and color flow Doppler imaging were performed. Flow was seen within the femoral, popliteal and calf veins with no intraluminal thrombus demonstrated. The saphenous vein is patent. Th ere is limited evaluation of the calf vessels. There is prominent pulsatility within the right common femoral venous waveform. This raises the possibility of elevated right heart pressures. IMPRESSION: No evidence of right lower extremity DVT. Electronically signed by: David Kirk M.D. 12/05/2018 6:37 AM
[2018-12-05 07:24] LABS: BUN Creatinine Ratio 17.6 (10-20); Calcium 8.7 mg/dl (8.5-10.1); Creatinine Clr Calc Pharmacy 42.6 ml/min; Est GFR (African American) 70.6; Est GFR (Non-African American) 60.9
--- NOTE | 2018-12-05 07:42 | CT Scan Report ---
CT SCAN OF THE ABDOMEN AND PELVIS WITHOUT CONTRAST CLINICAL HISTORY: L flank pain COMPARISON STUDY: 05/30/2016 TECHNIQUE: CT scan of the abdomen and pelvis was performed from the lung bases to the proximal femurs . Images are reviewed in the axial, sagittal, and coronal planes. IV contrast was not administered fo r this examination. A dose lowering technique was utilized adhering to the principles of ALARA. CT DOSE: 236.44 mGy.cm FINDINGS: Lower chest: There is mild interstitial thickening. There are no significant pleural effusions. Liver: The unenhanced liver is normal in size, contour, and attenuation. There is no intrahepatic roel iary ductal dilatation. Gallbladder: Surgically absent Spleen: Scattered granulomatous calcifications Pancreas: There is a persistent 3.5 cm cystic lesion involving the pancreatic head with secondary mil d pancreatic ductal dilatation. Adrenal glands: Unremarkable. Kidneys: There is no hydronephrosis. Bilateral renal calcifications are likely vascular. No ureteral calculi are visualized. Bowel: There are no transition zones indicate bowel obstruction. There is no evidence of acute divert iculitis. There are no findings to indicate acute appendicitis. Peritoneum: There is no intraperitoneal free air or abdominal ascites. Vasculature: There are extensive atheromatous changes within the aorta and iliac vessels. There is mi ld ectasia of the infrarenal abdominal aorta. There is no angelina aneurysm. There is evidence of prior right iliac artery stenting. Adenopathy: None. Pelvic viscera: The uterus is surgically absent. Skeletal structures: Destructive changes involve the right femoral head. There are erosive changes in volving the right acetabulum. There is a right hip joint effusion. There are superior endplate L5 com pression deformity. There is left hip avascular necrosis. IMPRESSION: 1. No evidence of bowel obstruction. No evidence of free air 2. No acute inflammatory changes 3. Persistent 3.5 cm cystic pancreatic head lesion with secondary ductal dilatation 4. Progressive destructive changes involving the right femoral head with acetabular remodeling in the right hip joint effusion 5. Left hip AVN 6. No evidence of hydronephrosis. No ureteral calculi identified. Electronically signed by: David Kirk M.D. 12/05/2018 7:41 AM
[2018-12-05] MEDS: ENOXAPARIN INJ 30 MG/0.3 ML SYR SQ SCH ×2 (08:39→10:30)
[2018-12-05] MEDS: NICOTINE 14 MG/24 HR PATCH TD SCH (08:40)
[2018-12-05] MEDS: GABAPENTIN 100 MG CAP PO SCH ×4 (08:41→20:53)
[2018-12-05] MEDS: PANTOprazole 40 MG TAB PO SCH ×2 (08:41→11:04)
[2018-12-05] MEDS: FERROUS SULFATE 325 MG TAB PO SCH ×3 (08:41→20:52)
[2018-12-05] MEDS: ASPIRIN 81 MG ECTAB PO SCH (08:41)
[2018-12-05] MEDS: FOLIC ACID 1 MG TAB PO SCH ×2 (08:42→11:04)
[2018-12-05] MEDS: ATORVASTATIN 20 MG TAB PO SCH ×2 (08:42→11:04)
[2018-12-05] MEDS: CITALOPRAM 40 MG TAB PO SCH ×2 (08:42→11:04)
[2018-12-05] MEDS: CLOPIDOGREL BISULFATE 75 MG TAB PO SCH (08:42)
[2018-12-05] MEDS: METOPROLOL SUCC 25MG EXT REL TAB PO SCH (08:43)
[2018-12-05] MEDS ORDERED: DOCUSATE SODIUM 100 MG CAP PO SCH (09:00)
[2018-12-05] MEDS: POTASSIUM CHLORIDE 10 MEQ TABCR PO STA ×2 (09:59→11:04)
[2018-12-05] MEDS: OXYCODONE HCL 10 MG TABCR (OXYCONTIN) PO SCH ×2 (10:33→20:53)
[2018-12-05] MEDS: POTASSIUM CHLORIDE / WTR 10 MEQ/100 ML PLCT IV SCH ×2 (10:33→11:06)
[2018-12-05] MEDS ORDERED: POTASSIUM CHLORIDE IV ONE (11:00)
[2018-12-05] MEDS ORDERED: SODIUM CHLORIDE 0.45% IV ONE (11:00)
--- NOTE | 2018-12-05 16:14 | Hospitalist Progress Note ---
Date of Service December 05, 2018 Assessment & Plan (1) Metabolic encephalopathy: Metabolic Encephalopathy Likely secondary to medications DD: R/O Infection--Possible sources UTI, Right foot cellulitis CT head:No significant change compared to the prior study. No acute intracranial abnormality. Normal Lactate levels Continue Zosyn for now Day #2 Urine Cx:pending Avoid sedative meds as able Clonazepam held Gabapentin dose decreased to 100mg TID (Previously on 300mg TID) Avoid Chronic Narcotics for excess sedation Celexa dose decreased to 20mg daily Hypokalemia Refused PO potassium supplements Continue IV potassium supplements as able Poor appetite Monitor electrolytes (2) Possible urinary tract infection: Management as above (3) Dehydration: IV Fluids as needed Acute on chronic hypoxemic respiratory failure H/O COPD Chronic Oxygen dependency--3 liters at baseline as per patient Ongoing tobacco use No sings of acute COPD Exacerbation Continue supplemental Oxygen Hypertension ? 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 Milagro Amador, contact #[phone]. Case management on board Subjective Patient is seen and examined at bedside Patient refuses most medications Has been drowsy mostly as per RN Complains of right hip and knee pain Plan to avoid any sedative meds as able Offers no other complaints Review of Systems Review of Systems: All systems reviewed & are unremarkable except as noted in HPI & below Physical Exam Physical Exam: Physical Exam: Vitals signs as noted above General Appearance:Thin, Frail, no apparent distress Head: normocephalic, Atraumatic Eyes: normal inspection, EOMI Neck: supple, Trachea midline Respiratory/Chest: Normal breath sounds, CTA Cardiovascular: S1, S2, No murmur Abdomen/GI:Soft, Non tender, Bowel sounds present Extremities/Musculoskelatal:normal inspection, no edema, Right foot mild erythema Neurologic/Psych:Oriented to place and person only, grossly no focal neurological deficits Skin: normal color, warm Results & Data Vital Signs (Past 12 Hours) Vital Signs Temp Pulse Pulse Resp BP Pulse Ox 12/05/18 15:42 36.6 C 62 18 162/71 H 1 L 12/05/18 11:01 36.5 C 68 22 178/74 H 97 12/05/18 08:05 36.8 C 67 20 174/75 H 95 12/05/18 08:00 70 12/05/18 04:35 173/64 H Laboratory Results Short CBC 12/04/18 12/05/18 Range/Units 19:05 06:22 WBC 6.74 6.03 (4.8-10.8) K/uL Hgb 12.7 11.9 L (12.0-16.0) g/dL Hct 37.6 36.4 L (37-47) % Plt Count 293 262 (130-400) K/uL BMP 12/04/18 12/05/18 19:05 06:22 Sodium 140 140 Potassium 3.7 3.0 L D Chloride 106 106 Carbon Dioxide 26 28 BUN 17 16 Creatinine 0.98 0.92 Glucose 97 95 Calcium 9.3 8.7 Cardiac Enzymes 12/04/18 Range/Units 19:05 Troponin I 0.025 (0-0.045) ng/ml Liver Function 12/04/18 Range/Units 19:05 Total Bilirubin 0.9 (0.2-1) mg/dl Direct Bilirubin 0.2 (0-0.2) mg/dl AST 10 L (15-37) U/L ALT 9 L (12-78) U/L Alkaline Phosphatase 102 (45-117) U/L Albumin 3.4 (3.4-5.0) gm/dl Urine 12/04/18 Range/Units 19:40 Urine Color Yellow Urine Appearance Clear (Clear) Urine pH 7.5 (4.5-7.5) Ur Specific [place] 1.015 (1.000-1.030) Urine Protein 2+ H (Negative) Urine Glucose (UA) Negative (Negative)
[2018-12-05] MEDS: HYDROCODONE/ACETAMOPHEN 5/325MG TAB PO PRN (23:55)
[2018-12-06] MEDS ORDERED: LORazepam 0.5 MG TAB PO STA (03:51)
[2018-12-06] MEDS ORDERED: TRAMADOL HCL 50 MG TABLET PO PRN (03:51)
[2018-12-06] MEDS: NICOTINE 14 MG/24 HR PATCH TD SCH (04:11)
[2018-12-06] MEDS: PIPERACILLIN/TAZOBACTAM 3.375 GM in DEXTROSE 5% 100 ML IV SCH (06:24)
[2018-12-06 07:39] LABS: Hematocrit (blood only) 33.5 % (37-47); Hemoglobin 10.9 g/dL (12.0-16.0); Mean Corpuscular Hemoglobin 31.4 pg (25-34); Mean Corpuscular Hgb Conc 32.5 g/dL (32-36); Mean Corpuscular Volume 96.5 fL (80-100); Mean Platelet Volume 9.2 fL (7.4-10.4); Platelet Count 239 K/uL (130-400); RDW Coefficient of Variation 14.2 % (11.5-14.5); RDW Standard Deviation 50.5 fL (36.4-46.3); Red Blood Count 3.47 M/uL (4.2-5.4); White Blood Count 5.32 K/uL (4.8-10.8)
[2018-12-06 08:11] LABS: BUN Creatinine Ratio 13.9 (10-20); Calcium 8.5 mg/dl (8.5-10.1); Creatinine Clr Calc Pharmacy 29.7 ml/min; Magnesium 2.1 mg/dl (1.8-2.4); Potassium 3.7 mmol/L (3.5-5.1)
[2018-12-06] MEDS: ENOXAPARIN INJ 30 MG/0.3 ML SYR SQ SCH ×2 (08:21→08:35)
[2018-12-06] MEDS: GABAPENTIN 100 MG CAP PO SCH ×3 (08:21→21:06)
[2018-12-06] MEDS: ATORVASTATIN 20 MG TAB PO SCH (08:22)
[2018-12-06] MEDS: FOLIC ACID 1 MG TAB PO SCH (08:22)
[2018-12-06] MEDS: METOPROLOL SUCC 25MG EXT REL TAB PO SCH (08:23)
[2018-12-06] MEDS: PANTOprazole 40 MG TAB PO SCH (08:24)
[2018-12-06] MEDS: FERROUS SULFATE 325 MG TAB PO SCH ×2 (08:25→08:33)
[2018-12-06] MEDS: DOCUSATE SODIUM/SENNA 50/8.6MG TAB PO SCH ×2 (08:25→21:11)
[2018-12-06] MEDS: FUROSEMIDE 20 MG TAB PO SCH (08:25)
[2018-12-06] MEDS: ASPIRIN 81 MG ECTAB PO SCH (08:25)
[2018-12-06] MEDS: CLOPIDOGREL BISULFATE 75 MG TAB PO SCH (08:25)
[2018-12-06] MEDS: CITALOPRAM 20 MG TAB PO SCH (08:25)
[2018-12-06] MEDS: OXYCODONE HCL 10 MG TABCR (OXYCONTIN) PO SCH ×2 (08:28→21:10)
[2018-12-06 10:25] LABS: Creatinine Clr Calc Pharmacy 27.5 ml/min; Est GFR (African American) 40.1; Est GFR (Non-African American) 34.6
[2018-12-06] MEDS ORDERED: SODIUM CHLORIDE 0.9% 1000ML 1,000 ML IV ONE (11:15)
[2018-12-06] MEDS ORDERED: ALBUTEROL HFA 8 GM INHALER INH PRN (13:30)
--- NOTE | 2018-12-06 18:32 | Hospitalist Progress Note ---
Date of Service December 06, 2018 Assessment & Plan (1) Metabolic encephalopathy: Metabolic Encephalopathy Likely secondary to medications DD: R/O Infection--UTI ruled out Possible Right foot cellulitis CT head:No significant change compared to the prior study. No acute intracranial abnormality. Normal Lactate levels Continue Zosyn for now Day #2>>Transitioned to Doxycycline Day #1 Urine Cx: Moderate mixed skin gabby Avoid sedative meds as able Clonazepam discontinued (patient takes 0.5 mg nightly for Insomnia) Gabapentin dose decreased to 100mg TID (Previously on 300mg TID) Avoid Chronic Narcotics for excess sedation Celexa dose decreased to 20mg daily Will change clonazepam to zolpidem nightly as needed for Insomnia Leg erythema resolved Hypokalemia Resolved Poor appetite Monitor electrolytes (2) Possible urinary tract infection: Ruled out (3) Dehydration: IV Fluids as needed Acute Kidney Injury Hold lisinopril, Lasix Gentle IV fluids as needed Monitor renal function Avoid nephrotoxic agents as able Acute on chronic hypoxemic respiratory failure H/O COPD Chronic Oxygen dependency--3 liters at baseline as per patient Ongoing tobacco use No sings of acute COPD Exacerbation Continue supplemental Oxygen Hypertension ? 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 Milagro Amador, contact #[phone]. Case management on board Subjective Patient is seen and examined at bedside More alert awake today Offers no complaints Eager to get discharged Patient unsafe to be discharged home with no supervision 24 hours Has chronic right hip and knee pain Case management working on discharge planning Review of Systems Review of Systems: All systems reviewed & are unremarkable except as noted in HPI & below Physical Exam Physical Exam: Physical Exam: Vitals signs as noted above General Appearance:Thin, Frail, no apparent distress Head: normocephalic, Atraumatic Eyes: normal inspection, EOMI Neck: supple, Trachea midline Respiratory/Chest: Normal breath sounds, CTA Cardiovascular: S1, S2, No murmur Abdomen/GI:Soft, Non tender, Bowel sounds present Extremities/Musculoskelatal:normal inspection, no edema Neurologic/Psych:Oriented to place and person only, grossly no focal neurological deficits Skin: normal color, warm Results & Data Vital Signs (Past 12 Hours) Vital Signs Temp Pulse Pulse Resp BP BP Pulse Ox 12/06/18 15:55 146/72 H 140/68 12/06/18 15:52 36.4 C L 70 20 104/57 L 219/80 H 95 12/06/18 13:38 74 153/75 H 12/06/18 12:00 36.4 C L 62 18 176/72 H 94 12/06/18 09:31 66 12/06/18 07:12 36.5 C 61 20 107/66 92 Laboratory Results Short CBC 12/06/18 Range/Units 06:54 WBC 5.32 (4.8-10.8) K/uL Hgb 10.9 L (12.0-16.0) g/dL Hct 33.5 L (37-47) % Plt Count 239 (130-400) K/uL BMP 12/06/18 12/06/18 06:54 09:34 Sodium 140 Potassium 3.7 D Chloride 108 H Carbon Dioxide 27 BUN 19 H Creatinine 1.36 H D 1.47 H Glucose 87 Calcium 8.5
[2018-12-06] MEDS: HEPARIN SOD 5,000 UNIT/0.5 ML VIAL SQ SCH (21:06)
[2018-12-06] MEDS: DOXYCYCLINE HYCLATE 100 MG CAP PO SCH (21:07)
[2018-12-06] MEDS: ZOLPIDEM TARTRATE 5 MG TAB PO PRN (22:59)
--- NOTE | 2018-12-06 23:52 | Hospitalist Progress Note ---
Date of Service December 06, 2018 Subjective Made aware by RN of uncontrolled blood pressure. SBP 190s Cardiac rate 70s as per RN. Patient asymptomatic as per RN. AP Hypertensive urgency Home diuretic, HAYDEN inhibitor on hold due to kidney dysfunction. Replace Toprol with Coreg 3.125 mg BID for now. Will relay to AM provider. Results & Data Vital Signs (Past 12 Hours) Vital Signs Temp Pulse Resp BP BP Pulse Ox 12/06/18 23:00 36.7 C 74 18 193/77 H 90 12/06/18 15:55 146/72 H 140/68 12/06/18 15:52 36.4 C L 70 20 104/57 L 219/80 H 95 12/06/18 13:38 74 153/75 H 12/06/18 12:00 36.4 C L 62 18 176/72 H 94
[2018-12-07] MEDS: carvediloL 3.125 MG TAB PO SCH ×2 (00:37→20:57)
[2018-12-07] MEDS: HYDROCODONE/ACETAMOPHEN 5/325MG TAB PO PRN ×2 (05:47→22:34)
[2018-12-07 06:07] LABS: Hematocrit (blood only) 36.4 % (37-47); Hemoglobin 11.6 g/dL (12.0-16.0); Mean Corpuscular Hemoglobin 31.2 pg (25-34); Mean Corpuscular Hgb Conc 31.9 g/dL (32-36); Mean Corpuscular Volume 97.8 fL (80-100); Mean Platelet Volume 9.6 fL (7.4-10.4); Platelet Count 249 K/uL (130-400); RDW Coefficient of Variation 14.3 % (11.5-14.5); RDW Standard Deviation 51.4 fL (36.4-46.3); Red Blood Count 3.72 M/uL (4.2-5.4); White Blood Count 5.96 K/uL (4.8-10.8)
[2018-12-07] MEDS: FERROUS SULFATE 325 MG TAB PO SCH ×2 (06:33→21:00)
[2018-12-07 06:44] LABS: BUN Creatinine Ratio 13.8 (10-20); Calcium 8.5 mg/dl (8.5-10.1); Creatinine Clr Calc Pharmacy 35.1 ml/min; Est GFR (African American) 53.9; Est GFR (Non-African American) 46.5; Potassium 3.9 mmol/L (3.5-5.1)
[2018-12-07] MEDS: ATORVASTATIN 20 MG TAB PO SCH (07:54)
[2018-12-07] MEDS: PANTOprazole 40 MG TAB PO SCH (07:54)
[2018-12-07] MEDS: CLOPIDOGREL BISULFATE 75 MG TAB PO SCH (07:54)
[2018-12-07] MEDS: CITALOPRAM 20 MG TAB PO SCH (07:54)
[2018-12-07] MEDS: FOLIC ACID 1 MG TAB PO SCH (07:55)
[2018-12-07] MEDS: GABAPENTIN 100 MG CAP PO SCH ×3 (07:56→20:57)
[2018-12-07] MEDS: ASPIRIN 81 MG ECTAB PO SCH (07:56)
[2018-12-07] MEDS: NICOTINE 14 MG/24 HR PATCH TD SCH (08:00)
[2018-12-07] MEDS: OXYCODONE HCL 10 MG TABCR (OXYCONTIN) PO SCH ×2 (10:20→20:56)
[2018-12-07] MEDS: DOXYCYCLINE HYCLATE 100 MG CAP PO SCH ×2 (10:21→20:58)
[2018-12-07] MEDS: DOCUSATE SODIUM/SENNA 50/8.6MG TAB PO SCH ×2 (10:21→21:00)
[2018-12-07] MEDS: HEPARIN SOD 5,000 UNIT/0.5 ML VIAL SQ SCH ×2 (10:23→20:57)
--- NOTE | 2018-12-07 14:40 | Hospitalist Progress Note ---
Date of Service December 07, 2018 Assessment & Plan (1) Metabolic encephalopathy: Metabolic Encephalopathy--Resolved Likely secondary to medications DD: R/O Infection--UTI ruled out Possible Right foot cellulitis CT head:No significant change compared to the prior study. No acute intracranial abnormality. Normal Lactate levels Continue Zosyn for now Day #2>>Transitioned to Doxycycline Day #2 Urine Cx: Moderate mixed skin gabby Avoid sedative meds as able Clonazepam discontinued (patient takes 0.5 mg nightly for Insomnia) Gabapentin dose decreased to 100mg TID (Previously on 300mg TID) Avoid Chronic Narcotics for excess sedation Celexa dose decreased to 20mg daily Will change clonazepam to zolpidem nightly as needed for Insomnia Continue current medications Hypokalemia Resolved Poor appetite Monitor electrolytes (2) Possible urinary tract infection: Ruled out (3) Dehydration: IV Fluids as needed Acute Kidney Injury --Resolved Hold lisinopril, Lasix for now Received IV fluids Monitor renal function Avoid nephrotoxic agents as able Acute on chronic hypoxemic respiratory failure H/O COPD Chronic Oxygen dependency--3 liters at baseline as per patient Ongoing tobacco use No sings of acute COPD Exacerbation Continue supplemental Oxygen Hypertension ? 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 Milagro Amador, contact #[phone]. Case management on board Subjective Patient is seen and examined at bedside No new complaints BP elevated overnight which improved with Coreg Denies any chest pain, SOB, dizziness, nausea, abd pain Has chronic right hip and knee pain Waiting for placement Review of Systems Review of Systems: All systems reviewed & are unremarkable except as noted in HPI & below Physical Exam Physical Exam: Physical Exam: Vitals signs as noted above General Appearance:Thin, Frail, no apparent distress Head: normocephalic, Atraumatic Eyes: normal inspection, EOMI Neck: supple, Trachea midline Respiratory/Chest: Normal breath sounds, CTA Cardiovascular: S1, S2, No murmur Abdomen/GI:Soft, Non tender, Bowel sounds present Extremities/Musculoskelatal:normal inspection, no edema Neurologic/Psych:Oriented to place and person only, grossly no focal neurological deficits Skin: normal color, warm Results & Data Vital Signs (Past 12 Hours) Vital Signs Temp Pulse Resp BP Pulse Ox 12/07/18 07:56 36.8 C 75 20 126/82 93 Laboratory Results Short CBC 12/07/18 Range/Units 05:39 WBC 5.96 (4.8-10.8) K/uL Hgb 11.6 L (12.0-16.0) g/dL Hct 36.4 L (37-47) % Plt Count 249 (130-400) K/uL BMP 12/07/18 05:39 Sodium 140 Potassium 3.9 Chloride 108 H Carbon Dioxide 27 BUN 16 Creatinine 1.15 D Glucose 89 Calcium 8.5
[2018-12-07] MEDS: TIOTROPIUM BROMIDE 5 PUFF/90 MCG INH INH SCH (15:57)
[2018-12-07] MEDS: ZOLPIDEM TARTRATE 5 MG TAB PO PRN (22:34)
[2018-12-08 06:30] LABS: Creatinine Clr Calc Pharmacy 35.7 ml/min; Est GFR (African American) 55.1; Est GFR (Non-African American) 47.5
[2018-12-08] MEDS: FERROUS SULFATE 325 MG TAB PO SCH ×2 (06:42→20:14)
[2018-12-08] MEDS: OXYCODONE HCL 10 MG TABCR (OXYCONTIN) PO SCH ×2 (08:03→20:14)
[2018-12-08] MEDS: HYDROCODONE/ACETAMOPHEN 5/325MG TAB PO PRN (08:03)
[2018-12-08] MEDS: carvediloL 3.125 MG TAB PO SCH ×2 (08:04→20:13)
[2018-12-08] MEDS: CITALOPRAM 20 MG TAB PO SCH (08:04)
[2018-12-08] MEDS: FOLIC ACID 1 MG TAB PO SCH (08:05)
[2018-12-08] MEDS: ASPIRIN 81 MG ECTAB PO SCH (08:05)
[2018-12-08] MEDS: ATORVASTATIN 20 MG TAB PO SCH (08:09)
[2018-12-08] MEDS: HEPARIN SOD 5,000 UNIT/0.5 ML VIAL SQ SCH ×2 (08:09→20:14)
[2018-12-08] MEDS: CLOPIDOGREL BISULFATE 75 MG TAB PO SCH (08:10)
[2018-12-08] MEDS: NICOTINE 14 MG/24 HR PATCH TD SCH (08:10)
[2018-12-08] MEDS: GABAPENTIN 100 MG CAP PO SCH ×3 (08:10→20:13)
[2018-12-08] MEDS: PANTOprazole 40 MG TAB PO SCH (08:11)
[2018-12-08] MEDS: DOXYCYCLINE HYCLATE 100 MG CAP PO SCH ×2 (08:11→20:14)
[2018-12-08] MEDS: TIOTROPIUM BROMIDE 5 PUFF/90 MCG INH INH SCH (08:12)
[2018-12-08] MEDS: DOCUSATE SODIUM/SENNA 50/8.6MG TAB PO SCH ×2 (09:19→20:16)
--- NOTE | 2018-12-08 14:28 | Hospitalist Progress Note ---
Date of Service December 08, 2018 Assessment & Plan (1) Metabolic encephalopathy: Metabolic Encephalopathy--Resolved Likely secondary to medications DD: R/O Infection--UTI ruled out Possible Right foot cellulitis CT head:No significant change compared to the prior study. No acute intracranial abnormality. Normal Lactate levels Continue Zosyn for now Day #2>>Transitioned to Doxycycline to complete the course Urine Cx: Moderate mixed skin gabby Avoid sedative meds as able Clonazepam discontinued (patient takes 0.5 mg nightly for Insomnia) Gabapentin dose decreased to 100mg TID (Previously on 300mg TID) Avoid Chronic Narcotics for excess sedation Celexa dose decreased to 20mg daily Clonazepam changed to zolpidem nightly as needed for Insomnia Mental status back to baseline Hypokalemia Resolved Poor appetite Monitor electrolytes (2) Possible urinary tract infection: Ruled out (3) Dehydration: IV Fluids as needed Acute Kidney Injury --Resolved Received IV fluids Monitor renal function Avoid nephrotoxic agents as able Acute on chronic hypoxemic respiratory failure H/O COPD Chronic Oxygen dependency--3 liters at baseline as per patient Ongoing tobacco use No sings of acute COPD Exacerbation Continue supplemental Oxygen Hypertension ? 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 Milagro Amador, contact #[phone]. Case management on board Subjective Patient is seen and examined at bedside States feeling well Eager to get discharged Prefers to be discharged home, not SNF Denies any chest pain, SOB, dizziness, nausea, abd pain Has chronic right hip and knee pain Review of Systems Review of Systems: All systems reviewed & are unremarkable except as noted in HPI & below Physical Exam Physical Exam: Physical Exam: Vitals signs as noted above General Appearance:Thin, Frail, no apparent distress Head: normocephalic, Atraumatic Eyes: normal inspection, EOMI Neck: supple, Trachea midline Respiratory/Chest: Normal breath sounds, CTA Cardiovascular: S1, S2, No murmur Abdomen/GI:Soft, Non tender, Bowel sounds present Extremities/Musculoskelatal:normal inspection, no edema Neurologic/Psych:Oriented to place and person only, grossly no focal neurological deficits Skin: normal color, warm Results & Data Vital Signs (Past 12 Hours) Vital Signs Temp Pulse Resp BP Pulse Ox 12/08/18 07:56 36.8 C 74 20 125/72 98 Laboratory Results [facility] 12/08/18 05:36 Creatinine 1.13
[2018-12-08] MEDS: ZOLPIDEM TARTRATE 5 MG TAB PO PRN (22:05)
[2018-12-09] MEDS: HYDROCODONE/ACETAMOPHEN 5/325MG TAB PO PRN ×3 (02:55→13:48)
[2018-12-09 06:55] LABS: Creatinine Clr Calc Pharmacy 40.4 ml/min; Est GFR (African American) 63.8; Est GFR (Non-African American) 55.1
[2018-12-09] MEDS: OXYCODONE HCL 10 MG TABCR (OXYCONTIN) PO SCH (08:26)
[2018-12-09] MEDS: CITALOPRAM 20 MG TAB PO SCH (08:27)
[2018-12-09] MEDS: FERROUS SULFATE 325 MG TAB PO SCH (08:27)
[2018-12-09] MEDS: ASPIRIN 81 MG ECTAB PO SCH (08:28)
[2018-12-09] MEDS: carvediloL 3.125 MG TAB PO SCH (08:28)
[2018-12-09] MEDS: GABAPENTIN 100 MG CAP PO SCH ×2 (08:29→15:14)
[2018-12-09] MEDS: ATORVASTATIN 20 MG TAB PO SCH (08:29)
[2018-12-09] MEDS: HEPARIN SOD 5,000 UNIT/0.5 ML VIAL SQ SCH (08:29)
[2018-12-09] MEDS: NICOTINE 14 MG/24 HR PATCH TD SCH (08:29)
[2018-12-09] MEDS: FOLIC ACID 1 MG TAB PO SCH (08:29)
[2018-12-09] MEDS: PANTOprazole 40 MG TAB PO SCH (08:30)
[2018-12-09] MEDS: CLOPIDOGREL BISULFATE 75 MG TAB PO SCH (08:30)
[2018-12-09] MEDS: DOCUSATE SODIUM/SENNA 50/8.6MG TAB PO SCH (08:30)
[2018-12-09] MEDS: TIOTROPIUM BROMIDE 5 PUFF/90 MCG INH INH SCH (08:30)
[2018-12-09] MEDS: DOXYCYCLINE HYCLATE 100 MG CAP PO SCH (08:31)
--- NOTE | 2018-12-09 12:50 | Hospitalist Progress Note ---
Date of Service December 09, 2018 Assessment & Plan (1) Metabolic encephalopathy: Metabolic Encephalopathy--Resolved Likely secondary to medications DD: R/O Infection--UTI ruled out Possible Right foot cellulitis CT head:No significant change compared to the prior study. No acute intracranial abnormality. Normal Lactate levels Continue Zosyn for now Day #2>>Transitioned to Doxycycline to complete the course Urine Cx: Moderate mixed skin gabby Avoid sedative meds as able Clonazepam discontinued (patient takes 0.5 mg nightly for Insomnia) Gabapentin dose decreased to 100mg TID (Previously on 300mg TID) Avoid Chronic Narcotics for excess sedation Celexa dose decreased to 20mg daily Clonazepam changed to zolpidem nightly as needed for Insomnia Mental status back to baseline Doing well on current medications Hypokalemia Resolved Poor appetite Monitor electrolytes (2) Possible urinary tract infection: Ruled out (3) Dehydration: IV Fluids as needed Acute Kidney Injury --Resolved Received IV fluids Monitor renal function Avoid nephrotoxic agents as able Acute on chronic hypoxemic respiratory failure H/O COPD Chronic Oxygen dependency--3 liters at baseline as per patient Ongoing tobacco use No sings of acute COPD Exacerbation Continue supplemental Oxygen Hypertension ? 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 Milagro Amador, contact #[phone]. Case management on board Subjective Patient is seen and examined at bedside Eager to get discharged Prefers no rehab placement Did well with PT/OT today Denies any chest pain, SOB, dizziness, nausea, abd pain Has chronic right hip and knee pain--unchanged Review of Systems Review of Systems: All systems reviewed & are unremarkable except as noted in HPI & below Physical Exam Physical Exam: Physical Exam: Vitals signs as noted above General Appearance:Thin, Frail, no apparent distress Head: normocephalic, Atraumatic Eyes: normal inspection, EOMI Neck: supple, Trachea midline Respiratory/Chest: Normal breath sounds, CTA Cardiovascular: S1, S2, No murmur Abdomen/GI:Soft, Non tender, Bowel sounds present Extremities/Musculoskelatal:normal inspection, no edema Neurologic/Psych:Oriented to place and person only, grossly no focal neuro logical deficits Skin: normal color, warm Results & Data Vital Signs (Past 12 Hours) Vital Signs Temp Pulse Resp BP Pulse Ox 12/09/18 07:22 36.6 C 77 16 149/67 H 91 Laboratory Results BMP 12/09/18 06:11 Creatinine 1.00
--- NOTE | 2018-12-09 13:18 | Discharge Summary ---
Date of Service December 09, 2018 Admission HPI Per Admitting Provider 73-year-old female who presents to the ED with altered mental status. Daughters are at the bedside who provides some history. Daughters have noticed some increasing confusion over the past couple of weeks. Today, patient's home health aide had reported that the patient cannot remember if she ate or drank anything today. The aide also noticed patient has been having urinary frequency since yesterday. Today patient had some chills however temperature was not taken. On exam, patient is found to have right lower extremity erythema and edema. Patient is unsure how long that has been present. She has chronic right hip/leg pain from avascular necrosis. Patient denies chest pain. She has chronic exertional shortness of breath which is unchanged from baseline. No reported lightheadedness, dizziness, diaphoresis, syncopal events. Denies abdominal pain, nausea, vomiting, diarrhea. In the ED, UA suggest possible UTI. H&H suggest hemoconcentration. Head CT is negative for acute findings. Patient was given lorazepam 1 mg IM. Admission Exam Per Admitting Provider Constitutional: + thin; no acute distress Vitals as noted Eyes: PERRL, conjunctivae normal, anicteric sclerae ENMT: external ear and nose normal, oropharynx normal Respiratory: normal respiratory effort, lungs clear to auscultation Cardiovascular: Rate/Rhythm: regular rate and regular rhythm Vessels: normal peripheral pulses Extremities: + edema (RLE +2) Gastrointestinal (Abdomen): normal bowel sounds, soft, nontender, no hepatosplenomegaly Musculoskeletal: no cyanosis or clubbing, extremities motor strength 5/5 Skin: no rashes, warm and dry Erythema noted to distal RLE/foot and warm to touch Neurologic: PERRL, EOMI, accommodation nl, no face palsy, no dysarthria Psychiatric: Orientation: alert, oriented to person and oriented to place; + not oriented to time Cognition: + recent memory not intact Insight: + limited insight Principal Diagnosis Metabolic encephalopathy Hypokalemia Hypertension Acute kidney injury Discharge Data Allergies Allergy/AdvReac Type Severity Reaction Status Date / Time Cipro Allergy Mild ITCHY Verified 05/29/16 16:32 ciprofloxacin Allergy Mild ITCHY Verified 01/08/18 12:20 Influenza Virus Vaccines Allergy Unknown HIVES ON Unverified 01/08/18 12:20 THE SITE mivacurium Allergy Unknown unknown Verified 01/08/18 12:20 Nitrate Analogues Allergy Unknown UNSURE; Verified 01/08/18 12:20 BUT PATIENT TAKES NITROSTAT PER ADMIT MED REC. nitrofurantoin Allergy Unknown UNSURE Verified 01/08/18 12:20 pneumococcal vaccine Allergy Unknown unk Verified 01/08/18 12:20 Consultations 12/04/18 21:19 ED Decision to Admit Stat 12/05/18 01:18 Consult Case Management - Discharge Planning Routine Procedures Performed CT head:No significant change compared to the prior study. No acute intracranial abnormality. Normal Lactate levels CXR; 1. Mild diffuse interstitial thickening, unchanged. This could represent mild developing pulmonary edema. 2. The heart is borderline enlarged. CT ABD: 1. No evidence of bowel obstruction. No evidence of free air 2. No acute inflammatory changes 3. Persistent 3.5 cm cystic pancreatic head lesion with secondary ductal dilatation 4. Progressive destructive changes involving the right femoral head with acetabular remodeling in the right hip joint effusion 5. Left hip AVN 6. No evidence of hydronephrosis. No ureteral calculi identified. Venous Doppler: No evidence of right lower extremity DVT. Ordered Studies 12/04/18 18:40 CT head/brain wo con Stat 12/04/18 23:37 CT abd pelvis wo con Urgent US venous doppler LE RT Urgent Hospital Course (1) Metabolic encephalopathy: Metabolic Encephalopathy--Resolved Likely secondary to medications DD: R/O Infection--UTI ruled out Possible Right foot cellulitis CT head:No significant change compared to the prior study. No acute intracranial abnormality. Normal Lactate levels Continue Zosyn for now Day #2>>Transitioned to Doxycycline to complete the course Urine Cx: Moderate mixed skin gabby Avoid sedative meds as able Clonazepam discontinued (patient takes 0.5 mg nightly for Insomnia) Gabapentin dose decreased to 100mg TID (Previously on 300mg TID) Avoid Chronic Narcotics for excess sedation Celexa dose decreased to 20mg daily Clonazepam changed to zolpidem nightly as needed for Insomnia Mental status back to baseline Doing well on current medications Hypokalemia Resolved Poor appetite Monitor electrolytes (2) Possible urinary tract infection: Ruled out (3) Dehydration: IV Fluids as needed Acute Kidney Injury --Resolved Received IV fluids Monitor renal function Avoid nephrotoxic agents as able Acute on chronic hypoxemic respiratory failure H/O COPD Chronic Oxygen dependency--3 liters at baseline as per patient Ongoing tobacco use No sings of acute COPD Exacerbation Continue supplemental Oxygen Hypertension ? Compliance Pain could be contributing Continue Metoprolol and lisinopril Right Hip Avascular necrosis Poor candidate for surgery as per records On chronic pain meds Hold Narcotics for excess sedation Chronic diastolic heart failure Monitor volume status Resume Lasix Euvolemic currently H/O CAD/CVA/PVD as per records Ongoing tobacco abuse Continue Aspirin, Plavix, lipitor Nicotine Patch Band Splicer to quit smoking DVT Px: Refuses Heparin SQ SCDs if patient agrees Code Status Full code Disposition Plan to discharge home with Home Health today Ms. Milagro Amador, contact #[phone]. Case management on board Total Time Total Time Spent Total Time Spent (In Minutes): 38 minutes Total Time Includes: Examination of the Patient, Discharge Planning, Medication Reconciliation, Communication With Other Providers and Other Discharge Plan Discharge Items Patient Disposition: Home - Home Health Services Reason For Visit: HTN URGENCY, ENCEPHALOPATHY Discharge Diagnosis: Metabolic encephalopathy Hypokalemia Hypertension Acute kidney injury Activity: Resume your previous activity Exercise/Sports: Gradually increase as tolerated Non-emergency contact: Primary Care Provider Call non-emergency contact if: you have any medication questions, your symptoms worsen, your pain is not controlled, your pain is worsening, your pain is unusual for you, your pain is concerning for you and you have a fever Follow-up/Referrals: Lena Quintanilla DO [Primary Care Provider] - Diet: Heart Healthy Addtl Attending Provider Instructions: Follow-up with your primary care physician Dr. Quintanilla on December 16, 2018 at 10:55 AM Minimize pain medications/Sedative medications use as able to prevent excessive sedation Quit Smoking Tobacco as advised Medication Changes: 1) Stop Taking Clonazepam 2) Your Citalopram dose is decreased from 40mg to 20mg daily 3)You are started on Lisinopril 2.5 mg for better control of your Blood pressure 4) Use Zolpidem 5mg at bedtime only as needed. Avoid use if able Seek immediate medical attention if your symptoms reoccur or worsen Pending Studies at Discharge: No Stand-Alone Forms: My [facility] Medications and DC Order Prescriptions: New zolpidem 5 mg Tablet 5 mg PO HS PRN (Reason: insomnia) 7 Days Qty: 7 RF: 0 lisinopril 2.5 mg tablet 2.5 mg PO DAILY Qty: 30 RF: 0 Continued prednisone 10 mg Tablet 10 mg PO DAILY PRN (Reason: Shortness Of Breath) RF: 0 atorvastatin 20 mg tablet 20 mg PO DAILY RF: 0 ipratropium-albuterol 0.5 mg-3 mg(2.5 mg base)/3 mL Solution For Nebulization 3 ml INHALATION Q6H PRN (Reason: Shortness Of Breath) RF: 0 clopidogrel 75 mg tablet 75 mg PO DAILY RF: 0 aspirin 81 mg Tablet,Delayed Release (Dr/Ec) 81 mg PO DAILY RF: 0 ferrous sulfate 325 mg (65 mg iron) Tablet 325 mg PO BID RF: 0 nitroglycerin 0.4 mg tablet, sublingual 0.4 mg Sublingual UD PRN (Reason: Chest Pain) RF: 0 omeprazole 20 mg capsule,delayed release(DR/EC) 20 mg PO DAILY RF: 0 folic acid 1 mg Tablet 1 mg PO DAILY RF: 0 gabapentin 100 mg capsule 100 mg PO TID RF: 0 metoprolol succinate 25 mg tablet extended release 24 hr 12.5 mg PO DAILY RF: 0 albuterol sulfate [Ventolin HFA] 90 mcg/actuation Hfa Aerosol Inhaler 2 puff INHALATION QID PRN (Reason: Shortness Of Breath) RF: 0 fluticasone propionate 50 mcg/actuation [place],Suspension 2 spray INTRANASAL DAILY PRN (Reason: Nasal Congestion) RF: 0 umeclidinium 62.5 mcg/actuation blister with device 1 inh Inhalation DAILY RF: 0 hydrocodone-acetaminophen 5-325 mg tablet 1 tab PO Q8H PRN (Reason: Pain) RF: 0 docusate sodium [Colace] 100 mg Capsule 100 mg PO BID RF: 0 potassium gluconate 550 mg (90 mg) Tablet 550 mg PO DAILY RF: 0 oxycodone [OxyContin] 10 mg tablet,oral only,ext.rel.12 hr 10 mg PO Q12H RF: 0 levofloxacin [Levaquin] 500 mg Tablet 500 mg PO DAILY PRN (Reason: shortness of breath) RF: 0 furosemide 20 mg Tablet 20 mg PO DAILY Qty: 40 RF: 0 Changed citalopram 40 mg tablet 20 mg PO DAILY Qty: 0 RF: 0 Discontinued clonazepam 0.5 mg tablet 0.5 mg PO TID RF: 0 Discharge Orders: Discharge Order (Routine); Ordered 12/09/18 Ordered By: Garrick Myles Admission Data Admit Date/Time: 12/04/18 23:41 Attending Provider: Garrick Myles Admit Provider: aFmilia Huynh Primary Care Provider: Lena Quintanilla Other Providers: [place] ; Familia Huynh ; [facility] Other Interventions: Discharge Summary Assessment (RN) Last Done: 12/09/18 15:49 DC Date/Time DO NOT enter until pt leaves facility: 12/09/18 18:54
== END 2018-12-09 18:54 | disposition home health service (06) | DRG 91 ==
LOC: ED 18:06 → 2S 23:41 → 4W 12-06 13:35

== ENCOUNTER 2019-03-18 23:39 | Inpatient (IN) ==
[2019-03-18] MEDS ORDERED: SODIUM CHLORIDE 0.9% 1000ML 1,000 ML IV SCH (23:45)
[2019-03-18] MEDS ORDERED: ALBUT/IPRATROP 3MG/0.5MG NEB 3 ML VIAL NEB STA (23:55)
[2019-03-19 01:02] LABS: Basophils # (auto) 0.03 K/uL (0-0.2); Basophils % (auto) 0.4 %; Eosinophils # (auto) 0.26 K/uL (0-0.5); Eosinophils % (auto) 3.5 %; Hematocrit (blood only) 27.5 % (37-47); Immature Granulocytes # (auto) 0.01 K/uL (0.00-0.02); Immature Granulocytes % (auto) 0.1 %; Lymphocytes # (auto) 1.35 K/uL (1.2-3.4); Lymphocytes % (auto) 17.9 %; Mean Corpuscular Hemoglobin 29.8 pg (25-34); Mean Corpuscular Hgb Conc 32.7 g/dL (32-36); Mean Corpuscular Volume 91.1 fL (80-100); Monocytes # (auto) 0.98 K/uL (0.11-0.59); Neutrophils % (auto) 65.1 %; Platelet Count 220 K/uL (130-400); RDW Coefficient of Variation 15.3 % (11.5-14.5); RDW Standard Deviation 50.9 fL (36.4-46.3); Red Blood Count 3.02 M/uL (4.2-5.4); White Blood Count 7.53 K/uL (4.8-10.8)
[2019-03-19 01:04] LABS: Base Excess VBG 2.9 mEq/L; HCO3 VBG 29 mmol/L; PCO2 VBG 51 mmHg (38-50); PO2 VBG 66 mmHg; pH VBG 7.37 (7.36-7.41)
[2019-03-19 01:05] LABS: Oxygen Saturation VBG < 60.0 %
[2019-03-19 01:18] LABS: Albumin Level 2.6 gm/dl (3.4-5.0); BUN Creatinine Ratio 18.7 (10-20); Calcium 8.4 mg/dl (8.5-10.1); Creatinine Clr Calc Pharmacy 28.5 ml/min; Est GFR (African American) 42.1; Est GFR (Non-African American) 36.3; Magnesium 2.3 mg/dl (1.8-2.4); Potassium 3.8 mmol/L (3.5-5.1)
[2019-03-19 01:40] LABS: Albumin Globulin Ratio 0.7 (0.9-2); Bilirubin,Total 0.3 mg/dl (0.2-1); Thyroid Stimulating Hormone 1.21 uIu/ml (0.300-4.500); Total Protein 6.6 gm/dl (6.4-8.2); Troponin I 0.135 ng/ml (0-0.045)
[2019-03-19 01:47] LABS: Influenza A virus by PCR Neg for Influ A (Neg); Influenza B virus by PCR Neg for Influ B (Neg)
[2019-03-19] MEDS ORDERED: ASPIRIN CHEW 324 MG PO STA (01:52)
[2019-03-19] MEDS ORDERED: NICOTINE 21 MG/24 HR TDSY TD STA (01:52)
[2019-03-19] MEDS ORDERED: ALBUT/IPRATROP 3MG/0.5MG NEB 3 ML VIAL NEB STA (01:53)
[2019-03-19] MEDS ORDERED: methylPREDNISolone 125 MG/2 ML VIAL IV STA (01:53)
[2019-03-19] MEDS ORDERED: DOXYCYCLINE HYCLATE 100 MG in DEXTROSE 5% 100 ML IV STA (02:10)
--- NOTE | 2019-03-19 02:58 | History & Physical Report ---
Date of Service March 19, 2019 Assessment & Plan (1) Encephalopathy: Multifactorial : COPD exacerbation, no sepsis Complicated UTI, no sepsis (history ESBL E. coli UTI on recent outpatient urine CS) ARF, clinical dehydration secondary to poor p.o. intake Neuropsychotropic/opioid medications for chronic pain hx chronic diastolic heart failure (EF 55 to 59%, TTE 2019), Patient clinically dry hx chronic respiratory failure secondary to COPD/pulmonary hypertension on home O2 ongoing tobacco abuse HTN, stable hx CVA/PVD as per records Acute on chronic anemia, hemoglobin drop from baseline Stool Hemoccult negative No overt source of bleeding for now Medical telemetry Doxycycline, nebs, prednisone course for COPD exacerbation Follow urine cultures, IV Ertapenem Monitor creatinine response IV fluids Appropriate to hold home neuropsychotropic/opiate medications until patient m entation at baseline Anemia work-up Trend H&H, transfuse PRBC if hemoglobin less than 8 and or for symptomatic anemia PT OT eval DVT prophylaxis. Heparin subcu Full code Attempted to contact patient's daughter (Ms. Milagro Lopez, contact #[phone]) over the phone for update on plan of care for patient. No answer. History of Present Illness Chief Complaint: Confusion as per family Worsening cough, back pain as per patient Primary Care Provider: Lena Quintanilla DO History obtained from patient and records. Patient is a fair historian. Medical history significant for chronic diastolic heart failure (EF 55 to 59%, TTE 2019), chronic respiratory failure secondary to COPD/pulmonary hypertension on home O2, ongoing tobacco abuse, HTN, history of PVD as per records, history of CVA as per records, chronic anemia (baseline hemoglobin 11), history of ESBL E. coli as per records, history of chronic pancreatitis as per records, chronic hip pain secondary to avascular necrosis on narcotics. Recent confinement November 2018 for metabolic encephalopathy attributed to medications. Patient seen at PCPs office 2 weeks ago for follow-up. Patient tearful due to ongoing right hip pain as per records. Discussion about possible hospice. Patient has been ill for about a week. Productive cough of junky sputum. No chest pain, shortness of breath and exertion as per patient. Poor appetite. Worsening right back pain as per patient. No unusual abdominal discomfort. Some constipation. Denies black/bloody stools. Outpatient urine cultures ESBL E. coli (10-100,000 CFUs/mL). PCPs office consulted [facility]. No antibiotic recommended unless patient having UTI symptoms. Patient noted by family to have visual hallucinations at home. Patient noted to be confused at home and to have visual hallucinations (e.g. , cats in the house) by family. At the ER, patient received Solu-Medrol, neb treatment for possible COPD exacerbation. MEDICAL HISTORY: SURGERIES: Appendectomy, hysterectomy, cholecystectomy, hernia repair, cystoscopy FAMILY HISTORY: Lung cancer and heart disease. PERSONAL AND SOCIAL HISTORY: 5 cigarettes daily. No chronic intake of alcoholic beverages. 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 Allergies Allergy/AdvReac Type Severity Reaction Status Date / Time Cipro Allergy Mild ITCHY Verified 05/29/16 16:32 ciprofloxacin Allergy Mild ITCHY Verified 03/19/19 01:50 Influenza Virus Vaccines Allergy Unknown HIVES ON Unverified 03/19/19 01:50 THE SITE Nitrate Analogues Allergy Unknown UNSURE; Verified 03/19/19 01:50 BUT PATIENT TAKES NITROSTAT PER ADMIT MED REC. nitrofurantoin Allergy Unknown UNSURE Verified 03/19/19 01:50 pneumococcal vaccine Allergy Unknown unk Verified 03/19/19 01:50 azithromycin Allergy Unknown Verified 03/19/19 01:50 Home Medications Home Medications Medication Instructions Recorded Confirmed Type albuterol sulfate [Ventolin HFA] 2 puff INHALATION QID PRN 12/28/17 03/19/19 History aspirin 81 mg PO DAILY 12/28/17 03/19/19 History atorvastatin 20 mg PO DAILY 12/28/17 03/19/19 History clopidogrel 75 mg PO DAILY 12/28/17 03/19/19 History ferrous sulfate 325 mg PO BID 12/28/17 03/19/19 History fluticasone propionate 2 spray INTRANASAL DAILY PRN 12/28/17 03/19/19 History folic acid 1 mg PO DAILY 12/28/17 03/19/19 History metoprolol succinate 12.5 mg PO DAILY 12/28/17 03/19/19 History nitroglycerin 0.4 mg SUBLINGUAL DIRECTED PRN 12/28/17 03/19/19 History omeprazole 20 mg PO DAILY 12/28/17 03/19/19 History umeclidinium 1 inh INHALATION DAILY 12/28/17 03/19/19 History docusate sodium [Colace] 100 mg PO BID 12/04/18 03/19/19 History hydrocodone-acetaminophen 1 tab PO Q8H PRN 12/04/18 03/19/19 History potassium gluconate 550 mg PO DAILY 12/04/18 03/19/19 History lisinopril 2.5 mg PO DAILY #30 tab 12/09/18 03/19/19 Rx citalopram 20 mg PO DAILY 03/19/19 03/19/19 History furosemide 20 mg PO UD 03/19/19 03/19/19 History gabapentin 600 mg PO TID 03/19/19 03/19/19 History oxycodone [OxyContin] 20 mg PO Q12 03/19/19 03/19/19 History sertraline 25 mg PO DAILY 03/19/19 03/19/19 History trazodone 50 mg PO HS 03/19/19 03/19/19 History Past Med/Surg History Social History Preferred Language: Macedonian Communication Ability: Effective Visual Impairment: No Limitations Site Promotion Agent Required: No Beliefs That Will Affect Care: None marital status: / Current Living Situation: Alone Current Living Situation Comment: alone with home health Feels Safe at Home: Yes Smoking Status: Current every day smoker Tobacco Type: cigarettes ; Cigarettes Per Day: 20 ; Hx Alcohol Use: No (quit 1 month ago per pt) Hx Substance Use: No Review of Systems Review of Systems: As per HPI, all 10 systems reviewed, all other ROS negative Physical Exam Physical Exam: GENERAL: Slightly uncomfortable, episodic lethargy, no respiratory distress SKIN: Pallor , warm HEENT: Pale palpebral conjunctivae, no ptosis, dry buccal mucosa, nasal cannula in place NECK : Supple, no tenderness CHEST : Decreased breath sounds, expiratory wheezes, no tenderness HEART : RRR, no obvious murmurs ABDOMEN: Soft, nontender RECTAL : Intact sphincter, yellow stool (FOBT negative) EXTREMITIES : Chronic right hip tenderness, no LE swelling, no other conspicuous deformities noted NEUROLOGIC : Coherent, episodic lethargy, no facial asymmetry, no other gross focality Results & Data Vital Signs (Past 12 Hours) Vital Signs Temp Pulse Pulse Resp BP BP Pulse Ox 03/19/19 02:29 82 16 113/45 L 94 03/19/19 02:16 79 18 96 03/19/19 02:08 76 14 119/48 L 91 03/19/19 02:00 78 15 111/50 L 92 03/19/19 01:30 80 14 98/45 L 93 03/19/19 00:30 78 16 122/49 L 90 03/19/19 00:15 72 18 98 03/19/19 00:00 72 15 126/51 L 98 03/18/19 23:54 37.1 C 77 21 110/51 L 92 Laboratory Results Laboratory Results WBC 7.53 K/uL (4.8-10.8) 03/19/19 00:50 RBC 3.02 M/uL (4.2-5.4) L 03/19/19 00:50 Hgb 9.0 g/dL (12.0-16.0) L 03/19/19 00:50 Hct 27.5 % (37-47) L 03/19/19 00:50 MCV 91.1 fL (80-100) 03/19/19 00:50 MCH 29.8 pg (25-34) 03/19/19 00:50 MCHC 32.7 g/dL (32-36) 03/19/19 00:50 RDW Std Deviation 50.9 fL (36.4-46.3) H 03/19/19 00:50 RDW Coeff of Sriram 15.3 % (11.5-14.5) H 03/19/19 00:50 Plt Count 220 K/uL (130-400) 03/19/19 00:50 MPV 9.0 fL (7.4-10.4) 03/19/19 00:50 Immature Gran % (Auto) 0.1 % 03/19/19 00:50 Neut % (Auto) 65.1 % 03/19/19 00:50 Lymph % (Auto) 17.9 % 03/19/19 00:50 Walker % (Auto) 13.0 % 03/19/19 00:50 Eos % (Auto) 3.5 % 03/19/19 00:50 Baso % (Auto) 0.4 % 03/19/19 00:50 Immature Gran # (Auto) 0.01 K/uL (0.00-0.02) 03/19/19 00:50 Neut # (Auto) 4.90 K/uL (1.4-6.5) 03/19/19 00:50 Lymph # (Auto) 1.35 K/uL (1.2-3.4) 03/19/19 00:50 Walker # (Auto) 0.98 K/uL (0.11-0.59) H 03/19/19 00:50 Eos # (Auto) 0.26 K/uL (0-0.5) 03/19/19 00:50 Baso # (Auto) 0.03 K/uL (0-0.2) 03/19/19 00:50 ABG pH Cancelled 03/18/19 00:50 ABG pCO2 Cancelled 03/18/19 00:50 ABG pO2 Cancelled 03/18/19 00:50 ABG HCO3 Cancelled 03/18/19 00:50 ABG O2 Saturation Cancelled 03/18/19 00:50 ABG Base Excess Cancelled 03/18/19 00:50 Dhiraj Test Cancelled 03/18/19 00:50 VBG pH 7.37 (7.36-7.41) 03/19/19 00:50 VBG pCO2 51 mmHg (38-50) H 03/19/19 00:50 VBG pO2 66 mmHg 03/19/19 00:50 VBG HCO3 29 mmol/L 03/19/19 00:50 VBG O2 Saturation < 60.0 % 03/19/19 00:50 VBG Base Excess 2.9 mEq/L 03/19/19 00:50 Barometric Pressure Cancelled 03/18/19 00:50 Oxygen Given Cancelled 03/18/19 00:50 Sodium 136 mmol/L (136-145) 03/19/19 00:50 Potassium 3.8 mmol/L (3.5-5.1) 03/19/19 00:50 Chloride 102 mmol/L (98-107) 03/19/19 00:50 Carbon Dioxide 29 mmol/L (21-32) 03/19/19 00:50 Anion Gap 5.0 (3-11) 03/19/19 00:50 BUN 26 mg/dl (7-18) H 03/19/19 00:50 Creatinine 1.41 mg/dl (0.6-1.2) H 03/19/19 00:50 Est Cr Clr Drug Dosing 28.5 ml/min 03/19/19 00:50 Est GFR ( Amer) 42.1 03/19/19 00:50 Est GFR (Non-Af Amer) 36.3 03/19/19 00:50 BUN/Creatinine Ratio 18.7 (10-20) 03/19/19 00:50 Glucose 104 mg/dl (70-99) H 03/19/19 00:50 Calcium 8.4 mg/dl (8.5-10.1) L 03/19/19 00:50 Magnesium 2.3 mg/dl (1.8-2.4) 03/19/19 00:50 Total Bilirubin 0.3 mg/dl (0.2-1) 03/19/19 00:50 AST 12 U/L (15-37) L 03/19/19 00:50 ALT 9 U/L (12-78) L 03/19/19 00:50 Alkaline Phosphatase 108 U/L (45-117) 03/19/19 00:50 Troponin I 0.135 ng/ml (0-0.045) H* 03/19/19 00:50 NT-Pro-B Natriuret Pep 1470 pg/ml (0-900) H 03/19/19 00:50 Total Protein 6.6 gm/dl (6.4-8.2) 03/19/19 00:50 Albumin 2.6 gm/dl (3.4-5.0) L 03/19/19 00:50 Globulin 4.0 gm/dl (2.5-4.0) 03/19/19 00:50 Albumin/Globulin Ratio 0.7 (0.9-2) L 03/19/19 00:50 Lipase 597 U/L (73-393) H 03/19/19 00:50 TSH 1.210 uIu/ml (0.300-4.500) 03/19/19 00:50 Influenza Type A (PCR) Neg for Influ A (Neg) 03/19/19 00:54 Influenza Type B (PCR) Neg for Influ B (Neg) 03/19/19 00:[address] head initial read: Chronic right occipital infarct. Parenchymal atrophy. No intracranial hemorrhage. CT abdomen pelvis initial read no obstruction. Severe atherosclerotic calcifications. Mild ectatic abdominal aorta measuring 2.6 cm. Status post cholecystectomy/hysterectomy. Cortical atrophy of the kidneys. Surgically absent right femoral head with developing pseudoarthrosis of the femoral neck/acetabulum. Joint fluid expected for absence of bone in the area not concerning for blood as per tele radiologist. Chest x-ray as per my interpretation cardiomegaly, atelectasis EKG as per my interpretation : Rate 70, NSR, normal axis, T wave flattening inferior leads, PVCs
[2019-03-19] MEDS ORDERED: LACTATED RINGER'S 1,000 ML IV SCH (04:20)
[2019-03-19] MEDS ORDERED: OLANZapine 10 MG/2.1 ML SDV IM PRN (04:20)
[2019-03-19] MEDS ORDERED: LACTATED RINGER'S 1,000 ML IV ONE (04:45)
[2019-03-19] MEDS ORDERED: ERTAPENEM CONSULT ACTIVE PRN (04:51)
[2019-03-19 05:20] LABS: Hematocrit (blood only) 26.9 % (37-47); Hemoglobin 8.6 g/dL (12.0-16.0); Reticulocyte % 1.3 % (0.5-2.0); Reticulocytes # 0.04 10^6/uL (0.02-0.10)
[2019-03-19 05:48] LABS: Ferritin 10.4 ng/ml (8-388)
[2019-03-19 05:52] LABS: Troponin I 0.112 ng/ml (0-0.045)
[2019-03-19] MEDS: HEPARIN SOD 5,000 UNIT/0.5 ML VIAL SQ SCH ×3 (05:55→20:52)
[2019-03-19] MEDS: ERTAPENEM SODIUM 500 MG in SODIUM CHLORIDE 0.9% 50 ML IV SCH (06:01)
--- NOTE | 2019-03-19 06:48 | CT Scan Report ---
CT OF THE ABDOMEN AND PELVIS WITHOUT CONTRAST CLINICAL HISTORY: Back pain. COMPARISON STUDY: CT of the abdomen and pelvis December 05, 2018. TECHNIQUE: Axial images of the abdomen and pelvis were obtained without IV contrast. Images were revi ewed in the axial, sagittal, and coronal planes. Automated exposure control was utilized for the zion dy. A dose lowering technique was utilized adhering to the principles of ALARA. FINDINGS: Lower lung opacities reflect atelectasis. No pneumatosis, free air or portal venous gas is present. A cystic lesion within the pancreatic head with mild pancreatic ductal dilatation remains un changed from prior exam. This is also similar to an earlier CT of August 07, 2013. The gallbladder is s urgically absent. There is an equivocal small distal common bile duct calculus. Marked right renal at rophy is unchanged. There is no left hydronephrosis. Evaluation of the abdomen and pelvis is suboptim al on this unenhanced examination. There are granulomas within the spleen. The adrenal glands are unr emarkable. There is no evidence for a bowel obstruction. No ascites or lymphadenopathy is present. Ex tensive aortoiliac atherosclerotic plaque is noted. Infrarenal abdominal aorta is ectatic, measuring 2.6 cm in caliber. Avascular necrosis of the left femoral head is unchanged. Erosion of the right fem oral head with remodeling of the acetabulum and a right hip joint effusion remain unchanged. Old L5 c ompression fracture is noted. There is no acute lumbar spine fracture. There are no suspicious osseou s lesions. IMPRESSION: 1. No acute process within the abdomen or pelvis on unenhanced exam. 2. No bowel obstruction. 3. Stable cystic lesion within the pancreatic head and stable pancreatic ductal dilatation. 3. Marked right renal atrophy. No hydronephrosis. ACT 112: Negative or not required by law. Electronically signed by: Jonathan Kim M.D. 03/19/2019 6:46 AM
[2019-03-19] MEDS ORDERED: XOPENEX/ATROVENT 1.25mg/0.5MG NEB COMBO NEB SCH (07:00)
--- NOTE | 2019-03-19 07:05 | CT Scan Report ---
CT OF THE HEAD WITHOUT CONTRAST CLINICAL HISTORY: Altered mental status. COMPARISON STUDY: Head CT December 04, 2018. CT DOSE: 537.48 mGy.cm TECHNIQUE: Helical axial images of the head were obtained without IV contrast. Automated exposure con trol was utilized for the study. A dose lowering technique was utilized adhering to the principles o f ALARA. FINDINGS: No acute intracranial hemorrhage, midline shift or mass effect is present. Ventricular syst em is stable. Basilar cisterns are patent. There are no extra axial collections. An old right occipit al lobe infarct with encephalomalacia is unchanged since exam December 04, 2018. There may be a old lac unar infarct within the left aspect of the amy. White matter hypodensity is unchanged and suggest sm all vessel disease. There are no findings to suggest acute dural sinus thrombosis or acute territoria l infarct. There are no significant calvarial abnormalities. IMPRESSION: 1. No acute intracranial findings. 2. Old right occipital lobe infarct and small vessel disease. ACT 112: Negative or not required by law. Electronically signed by: Jonathan Kim M.D. 03/19/2019 7:03 AM
[2019-03-19] MEDS: LEVALBUTEROL 1.25MG/0.5ML NEB INH SCH ×3 (07:15→18:57)
[2019-03-19] MEDS: IPRATROPIUM BROMIDE NEB SOLN 0.02% 2.5 ML VIAL INH SCH ×3 (07:15→18:57)
--- NOTE | 2019-03-19 07:40 | XRay Report ---
XR chest 1V portable HISTORY: cough COMPARISON: Chest 12/23/2018. FINDINGS: Densely calcified right paratracheal lymph nodes are again noted. The heart is borderline e nlarged. A few bibasilar linear densities consistent with subsegmental atelectasis. This remains unch anged. No new focal lung consolidations to suggest pneumonia. No evidence for pulmonary edema. IMPRESSION: Stable mild cardiomegaly and bibasilar densities suggesting atelectasis. ACT 112: Negative or not required by law. Electronically signed by: Carlo Morse M.D. 03/19/2019 7:39 AM
[2019-03-19] MEDS: SERTRALINE HCL 50 MG TABLET PO SCH (08:03)
[2019-03-19] MEDS: UMECLIDINIUM BROMIDE 62.5MCG/BLISTER 7 PUFFS/INHALER INH SCH (08:05)
[2019-03-19] MEDS: PANTOprazole 40 MG TAB PO SCH (08:05)
[2019-03-19] MEDS: FOLIC ACID 1 MG TAB PO SCH (08:05)
[2019-03-19] MEDS: DOCUSATE SODIUM 100 MG CAP PO SCH ×2 (08:05→20:52)
[2019-03-19] MEDS: ATORVASTATIN 20 MG TAB PO SCH (08:05)
[2019-03-19] MEDS: METOPROLOL SUCC 25MG EXT REL TAB PO SCH (08:06)
[2019-03-19] MEDS ORDERED: CITALOPRAM 20 MG TAB PO SCH (09:00)
[2019-03-19] MEDS: HYDROCODONE/ACETAMOPHEN 5/325MG TAB PO PRN (15:30)
--- NOTE | 2019-03-19 17:38 | Hospitalist Progress Note ---
Date of Service March 19, 2019 Assessment & Plan (1) Encephalopathy: Multifactorial : Metabolic encephalopathy COPD exacerbation, no sepsis Complicated UTI, no sepsis (history ESBL E. coli UTI on recent outpatient urine CS on 03/14/2019) ARF, clinical dehydration secondary to poor p.o. intake Neuropsychotropic/opioid medications for chronic pain Acute short of breath this morning Noted to have very high blood pressure with desaturation Chest x-ray showed CHF Will give 1 dose of Lasix 40 mg IV Acute on chronic right hip pain Has severe osteoarthritis-not amenable to surgery Complains more pain in the hip Gabapentin will be continued with decreasing dose due to metabolic encephal opathy We will give no narcotics pain medication hx chronic diastolic heart failure (EF 55 to 59%, TTE 2019), Patient clinically dry Noted to have more shortness of breath with CXR evidence of CHF She will receive 1 dose of intravenous Lasix of 40 mg hx chronic respiratory failure secondary to COPD/pulmonary hypertension on home O2 ongoing tobacco abuse Noted to have shortness of breath this morning HTN, stable hx CVA/PVD as per records Acute on chronic anemia, hemoglobin drop from baseline Stool Hemoccult negative No overt source of bleeding for now Medical telemetry Doxycycline, nebs, prednisone course for COPD exacerbation Follow urine cultures, IV Ertapenem Monitor creatinine response IV fluids Appropriate to hold home neuropsychotropic/opiate medications until patient mentation at baseline Anemia work-up Trend H&H, transfuse PRBC if hemoglobin less than 8 and or for symptomatic anemia Hemoglobin remains stable at 8.6 PT OT eval DVT prophylaxis. Heparin subcu Full code Patient's daughter (Ms. Milagro Lopez, contact #[phone]) . Subjective 03/19/2019 The patient was seen and examined in the medical floor in presence of the sister She has been less active recently at home Complains to have lots of right hip pain which is inoperable as per the sister She has had a urine test recently as an outpatient that grew ESBL She came in with ambulatory dysfunction 03/20/2019 The patient was seen and examined today in medical floor She did not look good this morning with shortness of breath, desaturation and fluctuating blood pressure Denied any pain Review of Systems Review of Systems: All systems reviewed and are unremarkable except as noted b elow Respiratory: + dyspnea Cardiovascular: no chest pain Neurologic: Pleasantly confused Physical Exam Physical Exam: Looks pale with shortness of breath Constitutional: + acute distress (Minimal acute distress due to right hip pain) and + thin Eyes: PERRL, conjunctivae normal, anicteric sclerae ENMT: external ear and nose normal, oropharynx normal Neck: trachea midline, no thyromegaly Respiratory: + respiratory distress Auscultation: + diminished lung sounds and + crackles (Moderate crackles at the bases) Cardiovascular: Rate/Rhythm: regular rate and regular rhythm Heart Sounds: no murmur Gastrointestinal (Abdomen): Inspection/Auscultation: abdomen normal to inspection and normal bowel sounds Percussion/Palpation: abdomen soft Musculoskeletal: Right hip joint is painful with every movement and the movements are restricted Neurologic: Alert and awake. Pleasantly confused Lymphatic: no cervical or axillary lymphadenopathy Results & Data Vital Signs (Past 12 Hours) Vital Signs Temp Pulse Pulse Resp BP Pulse Ox 03/19/19 15:43 84 03/19/19 15:34 36.3 C L 85 20 128/61 88 L 03/19/19 13:40 78 14 92 03/19/19 07:38 36.4 C L 87 16 149/62 H 91 03/19/19 07:17 83 16 94 Laboratory Results Short CBC 03/19/19 03/19/19 Range/Units 00:50 05:03 WBC 7.53 (4.8-10.8) K/uL Hgb 9.0 L 8.6 L (12.0-16.0) g/dL Hct 27.5 L 26.9 L (37-47) % Plt Count 220 (130-400) K/uL BMP 03/19/19 00:50 Sodium 136 Potassium 3.8 Chloride 102 Carbon Dioxide 29 BUN 26 H Creatinine 1.41 H Glucose 104 H Calcium 8.4 L Cardiac Enzymes 03/19/19 03/19/19 Range/Units 00:50 05:03 Troponin I 0.135 H* 0.112 H* (0-0.045) ng/ml Liver Function 03/19/19 Range/Units 00:50 Total Bilirubin 0.3 (0.2-1) mg/dl AST 12 L (15-37) U/L ALT 9 L (12-78) U/L Alkaline Phosphatase 108 (45-117) U/L Albumin 2.6 L (3.4-5.0) gm/dl Medications Administered Current Inpatient Medications Acetaminophen (Tylenol) 650 mg PO Q4H PRN PRN Reason: Pain or Fever Stop: 04/18/19 04:19 Hydrocodone Bitart/Acetaminophen ([place] 5/325) 1 tab PO Q8H PRN PRN Reason: Pain Stop: 04/02/19 04:45 Last Admin: 03/19/19 15:30 Dose: 1 tab Documented by: Atorvastatin Calcium (Lipitor) 20 mg PO DAILY AKSHAT Stop: 04/18/19 08:59 Last Admin: 03/19/19 08:05 Dose: 20 mg Documented by: Docusate Sodium (Colace) 100 mg PO BID AKSHAT Stop: 04/18/19 08:59 Last Admin: 03/19/19 08:05 Dose: 100 mg Documented by: Doxycycline Hyclate (Vibramycin) 100 mg PO BID AKSHAT Stop: 03/26/19 20:59 Ertapenem (Consult) 1 ea N/A UD PRN PRN Reason: Consult Stop: 04/18/19 04:50 Folic Acid (Folvite) 1 mg PO DAILY AKSHAT Stop: 04/18/19 08:59 Last Admin: 03/19/19 08:05 Dose: 1 mg Documented by: Gabapentin (Neurontin) 300 mg PO TID AKSHAT Stop: 04/18/19 20:59 Heparin Sodium (Porcine) (Heparin Sodium (Porcine)) 5,000 units SQ Q8 AKSHAT Stop: 04/18/19 05:59 Last Admin: 03/19/19 13:25 Dose: Not Given Documented by: Ertapenem 500 mg/ Sodium (Chloride) 55 mls @ 110 mls/hr IV Q24H AKSHAT Stop: 03/29/19 05:59 Last Infusion: 03/19/19 07:01 Dose: Infused Documented by: Lactated Ringer's (Lr) 1,000 mls @ 60 mls/hr IV .[id number] ONE Stop: 03/19/19 21:24 Last Admin: 03/19/19 05:57 Dose: 60 mls/hr Documented by: Ipratropium [place] (Atrovent 0.02% 0.5mg/2.5ml) 0.5 mg INH Q6R AKSHAT Stop: 04/18/19 06:59 Last Admin: 03/19/19 13:40 Dose: 0.5 mg Documented by: Levalbuterol HCl (Xopenex 1.25mg/0.5ml Neb) 1.25 mg INH Q6R [facility] Stop: 04/18/19 06:59 Last Admin: 03/19/19 13:40 Dose: 1.25 mg Documented by: Metoprolol Succinate (Toprol Xl) 12.5 mg PO DAILY [facility] Stop: 04/18/19 08:59 Last Admin: 03/19/19 08:06 Dose: 12.5 mg Documented by: Olanzapine (Zyprexa) 2.5 mg IM Q4H PRN PRN Reason: Anxiety/Agitation Stop: 04/18/19 04:19 Pantoprazole Sodium (Protonix) 40 mg PO DAILY [facility] Stop: 04/18/19 08:59 Last Admin: 03/19/19 08:05 Dose: 40 mg Documented by: Prednisone (Prednisone) 40 mg PO DAILY [facility] Stop: 03/24/19 08:59 Sertraline HCl (Zoloft) 25 mg PO DAILY [facility] Stop: 04/18/19 08:59 Last Admin: 03/19/19 08:03 Dose: 25 mg Documented by: Umeclidinium [place] (Incruse Ellipta) 1 puffs INH DAILY [facility] Stop: 04/18/19 08:59 Last Admin: 03/19/19 08:05 Dose: 1 puffs Documented by:
[2019-03-19 18:04] LABS: Appearance Urine Clear (Clear); Bacteria Urine Automated Negative (Negative); Bilirubin Urine Negative (Negative); Blood Urine Negative (Negative); Color Urine Yellow; Epithelial Cell Urine Auto >30 /lpf (0-5); Glucose Urine UA Negative (Negative); Ketones Urine Negative (Negative); Leukocyte Esterase Urine Trace (Negative); Nitrite Urine Negative (Negative); Protein Urine Negative (Negative); Specific Gravity Urine 1.011 (1.000-1.030); Urobilinogen Urine Negative (Negative)
[2019-03-19 18:21] LABS: Amphetamines+Metham, Urine Neg (Neg); Barbiturates, Urine Neg (Neg); Benzodiazepine, Urine Neg (Neg); Cocaine, Urine Neg (Neg); MDMA (Ecstacy), Urine Neg (Neg); Methadone, Urine Neg (Neg); Opiate, Urine Pos (Neg); Phencyclidine, Urine Neg (Neg)
[2019-03-19 18:28] LABS: RBC Urine Automated 0-4 /hpf (0-4)
[2019-03-19] MEDS: GABAPENTIN 300 MG CAP PO SCH (20:51)
[2019-03-19] MEDS: DOXYCYCLINE HYCLATE 100 MG CAP PO SCH (20:51)
--- NOTE | 2019-03-19 23:12 | Electrocardiogram Report ---
Test Reason : Blood Pressure : / mmHG Vent. Rate : 070 BPM Atrial Rate : 070 BPM P-R Int : 176 ms QRS Dur : 080 ms QT Int : 430 ms P-R-T Axes : 056 001 105 degrees QTc Int : 464 ms Sinus rhythm with occasional Premature ventricular complexes Nonspecific T wave abnormality Abnormal ECG When compared with ECG of 23-DEC-2018 14:17, Premature ventricular complexes are now Present Questionable change in QRS axis Confirmed by Julio Adhikari ([id number]) on 03/19/2019 11:12:19 PM Referred By: REFERRED SELF Confirmed By:Julio Adhikari
[2019-03-20] MEDS: LEVALBUTEROL 1.25MG/0.5ML NEB INH SCH ×4 (01:05→19:24)
[2019-03-20] MEDS: IPRATROPIUM BROMIDE NEB SOLN 0.02% 2.5 ML VIAL INH SCH ×4 (01:05→19:24)
--- NOTE | 2019-03-20 01:24 | Emergency Department Note ---
Entered by Blas Vallejo acting as a scribe for History of Present Illness General Chief complaint: Illness Stated complaint: AMS/RESPIRATORY DIFFICULTY Time Seen by Provider: 03/18/19 23:44 Source: patient and other (nurse) Limitations: altered mental status History of Present Illness Onset (ago): week(s) 1 Pain Consistency: + constant Quality: + other (weakness) Associated symptoms: + other (Positive for nausea, a productive white cough, constipation, urinary issues, congestion, difficulty remembering things, and hallucinations.) The patient is a 73 year old female who presents to the emergency department with complaints of constant weakness beginning a week ago. The patient states that she has been sick for the last week. She notes that she has been weak, and she reports that she has had nausea and a productive white cough. The patient states that she has been constipated and has been having some urinary issues. She also complains of congestion and difficulty remembering things. Per nurse, the patients daughter noted that she has been hallucinating about a cat. She notes that the patient smokes a pack of cigarettes a day. HPI limited secondary to AMS. Home Medications Home Medications Medication Instructions Recorded Confirmed Type albuterol sulfate [Ventolin HFA] 2 puff INHALATION QID PRN 12/28/17 03/19/19 History aspirin 81 mg PO DAILY 12/28/17 03/19/19 History atorvastatin 20 mg PO DAILY 12/28/17 03/19/19 History clopidogrel 75 mg PO DAILY 12/28/17 03/19/19 History ferrous sulfate 325 mg PO BID 12/28/17 03/19/19 History fluticasone propionate 2 spray INTRANASAL DAILY PRN 12/28/17 03/19/19 History folic acid 1 mg PO DAILY 12/28/17 03/19/19 History metoprolol succinate 12.5 mg PO DAILY 12/28/17 03/19/19 History nitroglycerin 0.4 mg SUBLINGUAL DIRECTED PRN 12/28/17 03/19/19 History omeprazole 20 mg PO DAILY 12/28/17 03/19/19 History umeclidinium 1 inh INHALATION DAILY 12/28/17 03/19/19 History docusate sodium [Colace] 100 mg PO BID 12/04/18 03/19/19 History hydrocodone-acetaminophen 1 tab PO Q8H PRN 12/04/18 03/19/19 History potassium gluconate 550 mg PO DAILY 12/04/18 03/19/19 History lisinopril 2.5 mg PO DAILY #30 tab 12/09/18 03/19/19 Rx citalopram 20 mg PO DAILY 03/19/19 03/19/19 History furosemide 20 mg PO UD 03/19/19 03/19/19 History gabapentin 600 mg PO TID 03/19/19 03/19/19 History oxycodone [OxyContin] 20 mg PO Q12 03/19/19 03/19/19 History sertraline 25 mg PO DAILY 03/19/19 03/19/19 History trazodone 50 mg PO HS 03/19/19 03/19/19 History Allergies Allergy/AdvReac Type Severity Reaction Status Date / Time Cipro Allergy Mild ITCHY Verified 05/29/16 16:32 ciprofloxacin Allergy Mild ITCHY Verified 03/19/19 01:50 Influenza Virus Vaccines Allergy Unknown HIVES ON Unverified 03/19/19 01:50 THE SITE Nitrate Analogues Allergy Unknown UNSURE; Verified 03/19/19 01:50 BUT PATIENT TAKES NITROSTAT PER ADMIT MED REC. nitrofurantoin Allergy Unknown UNSURE Verified 03/19/19 01:50 pneumococcal vaccine Allergy Unknown unk Verified 03/19/19 01:50 azithromycin Allergy Unknown Verified 03/19/19 01:50 Past Med/Surg History Social History Preferred Language: Albanian Communication Ability: Effective Visual Impairment: No Limitations Fulfillment Specialist Required: No Beliefs That Will Affect Care: None marital status: / Current Living Situation: Alone Current Living Situation Comment: alone with home health Feels Safe at Home: Yes Smoking Status: Current every day smoker Tobacco Type: cigarettes ; Cigarettes Per Day: 20 ; Hx Alcohol Use: No (quit 1 month ago per pt) Hx Substance Use: No Review of Systems ROS limited secondary to AMS. Physical Exam Vital Signs Vital Signs - 24 hr 03/19/19 01:30 03/19/19 02:00 03/19/19 02:08 Pulse Rate 80 78 76 Pulse Rate [Left Finger] Pulse Rate from SpO2 Sensor 80 80 76 Pulse Rhythm [Left Finger] Pulse Strength [Left Finger] Respiratory Rate 14 15 14 Respiratory Effort / Characteristics Respiratory Depth Blood Pressure 98/45 L 111/50 L 119/48 L Blood Pressure [Right Arm] Blood Pressure Mean 57 74 58 Blood Pressure Mean [Right Arm] Blood Pressure Position [Right Arm] Pulse Oximetry 93 92 91 Oxygen Delivery Method Oxygen Flow Rate 03/19/19 02:16 03/19/19 02:29 03/19/19 03:00 Pulse Rate 83 Pulse Rate [Left Finger] 79 82 Pulse Rate from SpO2 Sensor 83 Pulse Rhythm [Left Finger] Regular Pulse Strength [Left Finger] Normal Respiratory Rate 18 16 16 Respiratory Effort / Characteristics Non-Labored Spontaneous Non-Labored Spontaneous Respiratory Depth Normal Blood Pressure 116/47 L Blood Pressure [Right Arm] 113/45 L Blood Pressure Mean 60 Blood Pressure Mean [Right Arm] 67 Blood Pressure Position [Right Arm] Lying Pulse Oximetry 96 94 92 Oxygen Delivery Method Nasal Cannula Nasal Cannula Oxygen Flow Rate 3 3 3 03/19/19 03:01 Pulse Rate 81 Pulse Rate [Left Finger] Pulse Rate from SpO2 Sensor 82 Pulse Rhythm [Left Finger] Pulse Strength [Left Finger] Respiratory Rate 18 Respiratory Effort / Characteristics Respiratory Depth Blood Pressure Blood Pressure [Right Arm] Blood Pressure Mean Blood Pressure Mean [Right Arm] Blood Pressure Position [Right Arm] Pulse Oximetry 92 Oxygen Delivery Method Oxygen Flow Rate GENERAL: alert, anxious appearing, well nourished, no distress, non-toxic EYE EXAM: normal conjunctiva, PERRL and EOM's grossly intact OROPHARYNX: no exudate, no erythema, lips, buccal mucosa, and tongue normal and mucous membranes are dry NECK: supple, no nuchal rigidity, no adenopathy, non-tender LUNGS: Clear to auscultation. Normal chest wall mechanics. Diminished breath sounds, no wheezes, rhonchi, and rales. HEART: no murmurs, S1 normal and S2 normal ABDOMEN: abdomen soft, non-tender, normo-active bowel sounds, no masses, no rebound or guarding. BACK: Back is symmetrical on inspection and there is no deformity, no midline tenderness, no CVA tenderness. SKIN: no rashes and no bruising UPPER EXTREMITIES: upper extremities are grossly normal. FROM, nml pulses b/l. LOWER EXTREMITIES: 1+ lower extremity edema. FROM, nml pulses b/l. NEURO EXAM: Patient oriented to year/month, oriented generally to place, otherwise confused about questions of orientation and recent history, cranial nerves II-XII grossly intact, normal speech, no gross weakness of arms, no gross weakness of legs. Patient would not cooperate for any additional neuro testing. Course Course 2348: The patient was evaluated in room C10. A complete history and physical e xam was performed. 0139: I reevaluated the patient and updated her and her family. 0159: Upon reevaluation, the patient is stable. I discussed the findings and the treatment plan with the patient. She expresses agreement and understanding. [facility] The patient will be evaluated for further management. Consultations Consultation #1: I [facility] the [facility]'s [facility] He will evaluate the patient for further management. Time: 01:59 Administered Medications Hydrocodone Bitart/Acetaminophen ([place] 5/325) 1 tab PO Q8H PRN PRN Reason: Pain Stop: 04/02/19 04:45 Last Admin: 03/19/19 15:30 Dose: 1 tab Documented by: [id number] Atorvastatin Calcium (Lipitor) 20 mg PO DAILY AKSHAT Stop: 04/18/19 08:59 Last Admin: 03/19/19 08:05 Dose: 20 mg Documented by: [id number] Docusate Sodium (Colace) 100 mg PO BID AKSHAT Stop: 04/18/19 08:59 Last Admin: 03/19/19 20:52 Dose: 100 mg Documented by: [id number] Admin: 03/19/19 08:05 Dose: 100 mg Documented by: [id number] Doxycycline Hyclate (Vibramycin) 100 mg PO BID AKSHAT Stop: 03/26/19 20:59 Last Admin: 03/19/19 20:51 Dose: 100 mg Documented by: [id number] Folic Acid (Folvite) 1 mg PO DAILY AKSHAT Stop: 04/18/19 08:59 Last Admin: 03/19/19 08:05 Dose: 1 mg Documented by: [id number] Gabapentin (Neurontin) 300 mg PO TID AKSHAT Stop: 04/18/19 20:59 Last Admin: 03/19/19 20:51 Dose: 300 mg Documented by: [id number] Heparin Sodium (Porcine) (Heparin Sodium (Porcine)) 5,000 units SQ Q8 AKSHAT Stop: 04/18/19 05:59 Last Admin: 03/19/19 20:52 Dose: Not Given Documented by: [id number] Admin: 03/19/19 13:25 Dose: Not Given Documented by: [id number] Admin: 03/19/19 05:55 Dose: 5,000 units Documented by: [id number] Cosigned by: [id number] Ertapenem 500 mg/ Sodium (Chloride) 55 mls @ 110 mls/hr IV Q24H AKSHAT Stop: 03/29/19 05:59 Last Infusion: 03/19/19 07:01 Dose: 0 mls/hr Documented by: [id number] Admin: 03/19/19 06:01 Dose: 110 mls/hr Documented by: [id number] Ipratropium Dix (Atrovent 0.02% 0.5mg/2.5ml) 0.5 mg INH Q6R AKSHAT Stop: 04/18/19 06:59 Last Admin: 03/20/19 01:05 Dose: 0.5 mg Documented by: [id number] Admin: 03/19/19 18:57 Dose: 0.5 mg Documented by: [id number] Admin: 03/19/19 13:40 Dose: 0.5 mg Documented by: [id number] Admin: 03/19/19 07:15 Dose: 0.5 mg Documented by: [id number] Levalbuterol HCl (Xopenex 1.25mg/0.5ml Neb) 1.25 mg INH Q6R AKSHAT Stop: 04/18/19 06:59 Last Admin: 03/20/19 01:05 Dose: 1.25 mg Documented by: [id number] Admin: 03/19/19 18:57 Dose: 1.25 mg Documented by: [id number] Admin: 03/19/19 13:40 Dose: 1.25 mg Documented by: [id number] Admin: 03/19/19 07:15 Dose: 1.25 mg Documented by: [id number] Metoprolol Succinate (Toprol Xl) 12.5 mg PO DAILY AKSHAT Stop: 04/18/19 08:59 Last Admin: 03/19/19 08:06 Dose: 12.5 mg Documented by: [id number] Pantoprazole Sodium (Protonix) 40 mg PO DAILY AKSHAT Stop: 04/18/19 08:59 Last Admin: 03/19/19 08:05 Dose: 40 mg Documented by: [id number] Sertraline HCl (Zoloft) 25 mg PO DAILY AKSHAT Stop: 04/18/19 08:59 Last Admin: 03/19/19 08:03 Dose: 25 mg Documented by: [id number] Umeclidinium Dix (Incruse Ellipta) 1 puffs INH DAILY AKSHAT Stop: 04/18/19 08:59 Last Admin: 03/19/19 08:05 Dose: 1 puffs Documented by: [id number] Discontinued Medications Albuterol (Duoneb) 3 ml NEB NOW STA Stop: 03/18/19 23:56 Last Admin: 03/19/19 00:15 Dose: 3 ml Documented by: [id number] Albuterol (Duoneb) 3 ml NEB NOW STA Stop: 03/19/19 01:54 Last Admin: 03/19/19 02:16 Dose: 3 ml Documented by: [id number] Aspirin (Aspirin) 324 mg PO NOW STA Stop: 03/19/19 01:53 Last Admin: 03/19/19 02:10 Dose: 324 mg Documented by: [id number] Sodium Chloride (Nss 1000ml) 1,000 mls @ 125 mls/hr IV .Q8H AKSHAT Stop: 04/17/19 23:44 Last Infusion: 03/19/19 06:45 Dose: 0 mls/hr Documented by: [id number] Admin: 03/19/19 00:45 Dose: 125 mls/hr Documented by: [id number] Doxycycline Hyclate 100 mg/ (Dextrose) 110 mls @ 50 mls/hr IV NOW STA Stop: 03/19/19 04:21 Last Infusion: 03/19/19 06:45 Dose: 0 mls/hr Documented by: [id number] Admin: 03/19/19 02:41 Dose: 50 mls/hr Documented by: [id number] Lactated Ringer's (Lr) 1,000 mls @ 60 mls/hr IV .[id number] AKSHAT Stop: 04/18/19 04:19 Last Admin: 03/19/19 06:46 Dose: Not Given Documented by: [id number] Lactated Ringer's (Lr) 1,000 mls @ 60 mls/hr IV .[id number] ONE Stop: 03/19/19 21:24 Last Infusion: 03/19/19 23:00 Dose: 0 mls/hr Documented by: [id number] Admin: 03/19/19 05:57 Dose: 60 mls/hr Documented by: [id number] Methylprednisolone (Solumedrol) 60 mg IV NOW STA Stop: 03/19/19 01:54 Last Admin: 03/19/19 02:10 Dose: 60 mg Documented by: [id number] Miscellaneous (Remove Nicoderm Patch) 1 ea N/A DAILY@0859 AKSHAT Stop: 03/19/19 09:00 Last Admin: 03/19/19 08:06 Dose: 1 ea Documented by: [id number] Nicotine (Nicoderm Cq) 21 mg TD NOW STA Stop: 03/19/19 01:53 Last Admin: 03/19/19 02:11 Dose: 21 mg Documented by: [id number] Medical Decision Making Differential Diagnosis Differential Diagnosis includes but is not limited to dehydration, stroke, anemia, hypoglycemia, hyponatremia, hypernatremia, urinary tract infection, pneumonia, bronchitis, sepsis, gastroenteritis, additional abdominal pathology, metabolic abnormalities and infections. Medical Records Attestation: I reviewed the patient's medical records. Home Medications Current Medication List: was personally reviewed by me Laboratory Data Attestation: I reviewed the patient's lab results. Result diagrams: 03/19/19 05:03 03/19/19 00:50 Lab Results 03/18/19 03/19/19 03/19/19 Range/Units 00:50 00:50 00:50 WBC 7.53 (4.8-10.8) K/uL RBC 3.02 L (4.2-5.4) M/uL Hgb 9.0 L (12.0-16.0) g/dL Hct 27.5 L (37-47) % MCV 91.1 (80-100) fL MCH 29.8 (25-34) pg MCHC 32.7 (32-36) g/dL RDW Std Deviation 50.9 H (36.4-46.3) fL RDW Coeff of Sriram 15.3 H (11.5-14.5) % Plt Count 220 (130-400) K/uL MPV 9.0 (7.4-10.4) fL Immature Gran % (Auto) 0.1 % Neut % (Auto) 65.1 % Lymph % (Auto) 17.9 % [place] % (Auto) 13.0 % Eos % (Auto) 3.5 % Baso % (Auto) 0.4 % Immature Gran # (Auto) 0.01 (0.00-0.02) K/uL Neut # (Auto) 4.90 (1.4-6.5) K/uL Lymph # (Auto) 1.35 (1.2-3.4) K/uL [place] # (Auto) 0.98 H (0.11-0.59) K/uL Eos # (Auto) 0.26 (0-0.5) K/uL Baso # (Auto) 0.03 (0-0.2) K/uL ABG pH Cancelled ABG pCO2 Cancelled ABG pO2 Cancelled ABG HCO3 Cancelled ABG O2 Saturation Cancelled ABG Base Excess Cancelled Dhiraj Test Cancelled VBG pH (7.36-7.41) VBG pCO2 (38-50) mmHg VBG pO2 mmHg VBG HCO3 mmol/L VBG O2 Saturation % VBG Base Excess mEq/L Barometric Pressure Cancelled Oxygen Given Cancelled Sodium 136 (136-145) mmol/L Potassium 3.8 (3.5-5.1) mmol/L Chloride 102 (98-107) mmol/L Carbon Dioxide 29 (21-32) mmol/L Anion Gap 5.0 (3-11) BUN 26 H (7-18) mg/dl Creatinine 1.41 H (0.6-1.2) mg/dl Est Cr Clr Drug Dosing 28.5 ml/min Est GFR ( Amer) 42.1 Est GFR (Non-Af Amer) 36.3 BUN/Creatinine Ratio 18.7 (10-20) Glucose 104 H (70-99) mg/dl Calcium 8.4 L (8.5-10.1) mg/dl Magnesium 2.3 (1.8-2.4) mg/dl Total Bilirubin 0.3 (0.2-1) mg/dl AST 12 L (15-37) U/L ALT 9 L (12-78) U/L Alkaline Phosphatase 108 (45-117) U/L Troponin I 0.135 H* (0-0.045) ng/ml NT-Pro-B Natriuret Pep 1470 H (0-900) pg/ml Total Protein 6.6 (6.4-8.2) gm/dl Albumin 2.6 L (3.4-5.0) gm/dl Globulin 4.0 (2.5-4.0) gm/dl Albumin/Globulin Ratio 0.7 L (0.9-2) Lipase 597 H (73-393) U/L TSH 1.210 (0.300-4.500) uIu/ml Influenza Type A (PCR) (Neg) Influenza Type B (PCR) (Neg) 03/19/19 03/19/19 Range/Units 00:50 00:54 WBC (4.8-10.8) K/uL RBC (4.2-5.4) M/uL Hgb (12.0-16.0) g/dL Hct (37-47) % MCV (80-100) fL MCH (25-34) pg MCHC (32-36) g/dL RDW Std Deviation (36.4-46.3) fL RDW Coeff of Sriram (11.5-14.5) % Plt Count (130-400) K/uL MPV (7.4-10.4) fL Immature Gran % (Auto) % Neut % (Auto) % Lymph % (Auto) % [place] % (Auto) % Eos % (Auto) % Baso % (Auto) % Immature Gran # (Auto) (0.00-0.02) K/uL Neut # (Auto) (1.4-6.5) K/uL Lymph # (Auto) (1.2-3.4) K/uL [place] # (Auto) (0.11-0.59) K/uL Eos # (Auto) (0-0.5) K/uL Baso # (Auto) (0-0.2) K/uL ABG pH ABG pCO2 ABG pO2 ABG HCO3 ABG O2 Saturation ABG Base Excess Dhiraj Test VBG pH 7.37 (7.36-7.41) VBG pCO2 51 H (38-50) mmHg VBG pO2 66 mmHg VBG HCO3 29 mmol/L VBG O2 Saturation < 60.0 % VBG Base Excess 2.9 mEq/L Barometric Pressure Oxygen Given Sodium (136-145) mmol/L Potassium (3.5-5.1) mmol/L Chloride (98-107) mmol/L Carbon Dioxide (21-32) mmol/L Anion Gap (3-11) BUN (7-18) mg/dl Creatinine (0.6-1.2) mg/dl Est Cr Clr Drug Dosing ml/min Est GFR ( Amer) Est GFR (Non-Af Amer) BUN/Creatinine Ratio (10-20) Glucose (70-99) mg/dl Calcium (8.5-10.1) mg/dl Magnesium (1.8-2.4) mg/dl Total Bilirubin (0.2-1) mg/dl AST (15-37) U/L ALT (12-78) U/L Alkaline Phosphatase (45-117) U/L Troponin I (0-0.045) ng/ml NT-Pro-B Natriuret Pep (0-900) pg/ml Total Protein (6.4-8.2) gm/dl Albumin (3.4-5.0) gm/dl Globulin (2.5-4.0) gm/dl Albumin/Globulin Ratio (0.9-2) Lipase (73-393) U/L TSH (0.300-4.500) uIu/ml Influenza Type A (PCR) Neg for Influ A (Neg) Influenza Type B (PCR) Neg for Influ B (Neg) Imaging Data Attestation: I personally reviewed and interpreted this imaging study as follows: My Impression: 1 VIEW CHEST X-RAY: Mild cardiomegaly. No effusions. No wide mediastinum. No focal consolidation. No acute pulmonary edema. Radiologist's Impression: Radiology results as stated below per my review and the radiologist's interpretation: CT HEAD: Chronic right occipital infarct. Parenchymal atrophy with advanced chronic microvascular ischemic changes. No intracranial hemorrhage or large territory acute cortical infarct. Radiologist: Bharathi Munoz MD. ECG Data Attestation: I personally reviewed and interpreted this ECG as follows: Indication: + weakness Rate (beats per minute): 70 Rhythm: + sinus rhythm ECG Decker: + Normal ECG ST segments: no ST depression and no ST elevation ECG Findings: + PVCs Additional Comments: Normal intervals. Blood Pressure Blood Pressure Findings: Normal blood pressure Blood Pressure Disposition: did not require urgent referral MDM Narrative Patient presenting with family due to concern for increased cough and trouble breathing. They also state the patient has had increased weakness recently. They also described recent hallucinations intermittently. Patient here is semi- oriented although confused to recent events. Patient does have an extensive history of COPD, however does not usually wear home oxygen and was found to be mildly hypoxic here. Initially patient given treatment for possible COPD exacerbation. CT of the head performed due to recent confusion and hallucinations. Other labs performed in addition. Patient found to have mild KTAIE, as well as an elevated troponin and BNP. Patient's exam not consistent with acute congestive heart failure. Unclear if some of this is related to the mild KATIE likely secondary to dehydration and poor p.o. intake. Due to patient's risk factors, case was discussed with hospitalist for additional evaluation and management. Patient was kept on oxygen here and maintain oxygen saturations in the low to mid 90s. No evidence for bacteremia/sepsis. No evidence for pneumonia or acute pulmonary edema on chest x-ray. Patient denied any chest pain or difficulty breathing. At this time I do not suspect active ACS. Patient found to have anemia here, despite history of anemia appears slightly worse compared to the fall. Patient and daughter bedside made aware of all results and were in agreement with plan. Impression & Plan Altered mental status, Dyspnea, Elevated troponin, COPD exacerbation, KATIE (acute kidney injury), Tobacco use disorder, Anemia Discharge Plan Visit Data *Final* Discharge Date/Time: 03/19/19 03:22 Chief Complaint: Illness Stated Complaint: AMS/RESPIRATORY DIFFICULTY ED Provider: Angela Roland Discharge Problem: Altered mental status, Dyspnea, Elevated troponin, COPD exacerbation, KATIE (acute kidney injury), Tobacco use disorder, Anemia Patient Disposition: Admitted As Inpatient Discharge Instructions Interventions: ED Discharge Assessment Last Done: 03/19/19 03:22 Discharge Problem: Altered mental status Qualifiers: Altered mental status type: unspecified Qualified Code(s): R41.82 - Altered mental status, unspecified Dyspnea Qualifiers: Dyspnea type: unspecified Qualified Code(s): R06.00 - Dyspnea, unspecified Anemia Qualifiers: Anemia type: unspecified type Qualified Code(s): D64.9 - Anemia, unspecified The scribe's documentation has been prepared under my direction and personally reviewed by me in its entirety. I confirm that the note above accurately reflects all work, treatment, procedures, and medical decision making performed by me.
[2019-03-20] MEDS: HEPARIN SOD 5,000 UNIT/0.5 ML VIAL SQ SCH ×4 (06:08→20:37)
[2019-03-20] MEDS: ERTAPENEM SODIUM 500 MG in SODIUM CHLORIDE 0.9% 50 ML IV SCH (06:40)
[2019-03-20 08:05] LABS: Basophils # (auto) 0.02 K/uL (0-0.2); Basophils % (auto) 0.2 %; Eosinophils # (auto) 0.08 K/uL (0-0.5); Eosinophils % (auto) 0.8 %; Hematocrit (blood only) 27.4 % (37-47); Hemoglobin 8.6 g/dL (12.0-16.0); Immature Granulocytes # (auto) 0.02 K/uL (0.00-0.02); Immature Granulocytes % (auto) 0.2 %; Lymphocytes # (auto) 0.85 K/uL (1.2-3.4); Lymphocytes % (auto) 8.3 %; Mean Corpuscular Hemoglobin 28.5 pg (25-34); Mean Corpuscular Hgb Conc 31.4 g/dL (32-36); Mean Corpuscular Volume 90.7 fL (80-100); Monocytes # (auto) 0.89 K/uL (0.11-0.59); Monocytes % (auto) 8.6 %; Neutrophils # (auto) 8.43 K/uL (1.4-6.5); Neutrophils % (auto) 81.9 %; Platelet Count 235 K/uL (130-400); RDW Coefficient of Variation 15.5 % (11.5-14.5); RDW Standard Deviation 50.8 fL (36.4-46.3); Red Blood Count 3.02 M/uL (4.2-5.4); White Blood Count 10.29 K/uL (4.8-10.8)
[2019-03-20] MEDS: SERTRALINE HCL 50 MG TABLET PO SCH (08:14)
[2019-03-20] MEDS: ATORVASTATIN 20 MG TAB PO SCH (08:14)
[2019-03-20] MEDS: predniSONE 20 MG TAB PO SCH (08:14)
[2019-03-20] MEDS: GABAPENTIN 300 MG CAP PO SCH ×3 (08:14→20:28)
[2019-03-20] MEDS: FOLIC ACID 1 MG TAB PO SCH (08:14)
[2019-03-20] MEDS: DOCUSATE SODIUM 100 MG CAP PO SCH ×2 (08:14→20:27)
[2019-03-20] MEDS: PANTOprazole 40 MG TAB PO SCH (08:14)
[2019-03-20] MEDS: METOPROLOL SUCC 25MG EXT REL TAB PO SCH (08:14)
[2019-03-20] MEDS: DOXYCYCLINE HYCLATE 100 MG CAP PO SCH ×2 (08:15→20:27)
[2019-03-20] MEDS: UMECLIDINIUM BROMIDE 62.5MCG/BLISTER 7 PUFFS/INHALER INH SCH (08:15)
[2019-03-20 08:40] LABS: BUN Creatinine Ratio 28.4 (10-20); Calcium 8.6 mg/dl (8.5-10.1); Creatinine Clr Calc Pharmacy 38.6 ml/min; Est GFR (African American) 60.9; Est GFR (Non-African American) 52.5; Potassium 3.5 mmol/L (3.5-5.1)
[2019-03-20] MEDS ORDERED: ERTAPENEM SODIUM 500 MG in SODIUM CHLORIDE 0.9% 50 ML IV SCH (12:00)
--- NOTE | 2019-03-20 13:23 | XRay Report ---
XR chest 1V portable CLINICAL HISTORY: SOB dyspnea COMPARISON STUDY: 03/19/2019 FINDINGS: Increased pulmonary vasculature compared to the prior study. Stable calcified mediastinal a nd hilar nodes. Diaphragms are smooth. Slight chronic blunting left lateral costophrenic angle. IMPRESSION: Congestive heart failure. ACT 112: Negative or not required by law. The above report was generated using voice recognition software. It may contain grammatical, syntax or spelling errors. Electronically signed by: Sanjay Cid M.D. 03/20/2019 1:22 PM
[2019-03-20] MEDS ORDERED: FUROSEMIDE 40 MG in SYRINGE 0 ML IV ONE (14:00)
[2019-03-21] MEDS: LEVALBUTEROL 1.25MG/0.5ML NEB INH SCH ×4 (00:55→19:08)
[2019-03-21] MEDS: IPRATROPIUM BROMIDE NEB SOLN 0.02% 2.5 ML VIAL INH SCH ×4 (00:55→19:08)
[2019-03-21] MEDS: FAMOTIDINE 20 MG TAB PO PRN (01:52)
[2019-03-21] MEDS: HEPARIN SOD 5,000 UNIT/0.5 ML VIAL SQ SCH ×4 (05:32→22:00)
--- NOTE | 2019-03-21 06:08 | Electrocardiogram Report ---
Test Reason : Blood Pressure : / mmHG Vent. Rate : 100 BPM Atrial Rate : 100 BPM P-R Int : 156 ms QRS Dur : 076 ms QT Int : 366 ms P-R-T Axes : 066 050 078 degrees QTc Int : 472 ms Normal sinus rhythm Nonspecific ST abnormality Abnormal ECG When compared with ECG of 19-MAR-2019 00:10, Premature ventricular complexes are no longer Present Nonspecific T wave abnormality no longer evident in Lateral leads Confirmed by Julio Adhikari ([id number]) on 03/21/2019 6:08:34 AM Referred By: REFERRED SELF Confirmed By:Julio Adhikari
[2019-03-21 08:00] LABS: BUN Creatinine Ratio 25.9 (10-20); Calcium 8.3 mg/dl (8.5-10.1); Creatinine Clr Calc Pharmacy 34.4 ml/min; Est GFR (African American) 55.1; Est GFR (Non-African American) 47.5; Magnesium 2.1 mg/dl (1.8-2.4); Potassium 3.5 mmol/L (3.5-5.1)
[2019-03-21] MEDS: GABAPENTIN 300 MG CAP PO SCH ×3 (08:11→21:29)
[2019-03-21] MEDS: UMECLIDINIUM BROMIDE 62.5MCG/BLISTER 7 PUFFS/INHALER INH SCH (08:12)
[2019-03-21] MEDS: FOLIC ACID 1 MG TAB PO SCH (08:12)
[2019-03-21] MEDS: SERTRALINE HCL 50 MG TABLET PO SCH (08:12)
[2019-03-21] MEDS: PANTOprazole 40 MG TAB PO SCH (08:12)
[2019-03-21] MEDS: DOCUSATE SODIUM 100 MG CAP PO SCH ×2 (08:13→21:29)
[2019-03-21] MEDS: ATORVASTATIN 20 MG TAB PO SCH (08:13)
[2019-03-21] MEDS: predniSONE 20 MG TAB PO SCH (08:13)
[2019-03-21] MEDS: DOXYCYCLINE HYCLATE 100 MG CAP PO SCH ×2 (08:13→21:29)
[2019-03-21] MEDS: METOPROLOL SUCC 25MG EXT REL TAB PO SCH (08:13)
[2019-03-21] MEDS: HYDROCODONE/ACETAMOPHEN 5/325MG TAB PO PRN ×2 (08:18→21:39)
[2019-03-21] MEDS: ERTAPENEM SODIUM 1,000 MG in SODIUM CHLORIDE 0.9% 50 ML IV SCH (11:27)
[2019-03-21] MEDS ORDERED: FUROSEMIDE 40 MG in SYRINGE 0 ML IV ONE (12:35)
--- NOTE | 2019-03-21 16:22 | Hospitalist Progress Note ---
Date of Service March 21, 2019 Assessment & Plan (1) Encephalopathy: Multifactorial : Metabolic encephalopathy ESBL UTI Diagnosed on 03/14/2019 as an outpatient urine CS Has been on ertapenem since admission Will need to continue for a total of 14 days PICC line placed Likely be discharged tomorrow to [facility] COPD exacerbation, no sepsis Complicated UTI, no sepsis (history ESBL E. coli UTI on recent outpatient urine CS on 03/14/2019) ARF, clinical dehydration secondary to poor p.o. intake Neuropsychotropic/opioid medications for chronic pain Gabapentin dose has been decreased and doses of narcotics have been reduced Acute confusion is resolved Acute short of breath this morning Noted to have very high blood pressure with desaturation Chest x-ray showed CHF Will give 1 dose of Lasix 40 mg IV on 03/20/2019 Has some bibasilar crackles Will give additional dose of Lasix 40 mg IV on 03/21/2019 Acute on chronic right hip pain Has severe osteoarthritis-not amenable to surgery Complains more pain in the hip Gabapentin will be continued with decreasing dose due to metabolic e ncephalopathy We will give no narcotics pain medication hx chronic diastolic heart failure (EF 55 to 59%, TTE 2018), Patient clinically dry Noted to have more shortness of breath with CXR evidence of CHF She will receive 1 dose of intravenous Lasix of 40 mg Will receive second dose of 40 mg Lasix IV on 03/21/2019 hx chronic respiratory failure secondary to COPD/pulmonary hypertension on home O2 ongoing tobacco abuse Noted to have shortness of breath this morning HTN, stable hx CVA/PVD as per records Acute on chronic anemia, hemoglobin drop from baseline Stool Hemoccult negative No overt source of bleeding for now Medical telemetry Doxycycline, nebs, prednisone course for COPD exacerbation Follow urine cultures, IV Ertapenem Monitor creatinine response IV fluids Appropriate to hold home neuropsychotropic/opiate medications until patient mentation at baseline Anemia work-up Trend H&H, transfuse PRBC if hemoglobin less than 8 and or for symptomatic anemia Hemoglobin remains stable at 8.6 PT OT eval DVT prophylaxis. Heparin subcu Full code Patient's daughter (Ms. Milagro Lopez, contact #[phone]) Likely discharge tomorrow to [facility]. Subjective 03/19/2019 The patient was seen and examined in the medical floor in presence of the sister She has been less active recently at home Complains to have lots of right hip pain which is inoperable as per the sister She has had a urine test recently as an outpatient that grew ESBL She came in with ambulatory dysfunction 03/20/2019 The patient was seen and examined today in medical floor She did not look good this morning with shortness of breath, desaturation and fluctuating blood pressure Denied any pain 03/21/2019 The patient was seen and examined in medical telemetry unit She has been feeling a lot better today and denies any complaints Shortness of breath is better and the pain in the right hip is tolerable Review of Systems Review of Systems: All systems reviewed and are unremarkable except as noted below Respiratory: + dyspnea Neurologic: Pleasantly confused Physical Exam Physical Exam: Lying in bed comfortably Constitutional: + thin; no acute distress Eyes: PERRL, conjunctivae normal, anicteric sclerae ENMT: external ear and nose normal, oropharynx normal Neck: trachea midline, no thyromegaly Respiratory: no respiratory distress Auscultation: + diminished lung sounds and + crackles (Moderate crackles at the bases) Cardiovascular: Rate/Rhythm: regular rate and regular rhythm Heart Sounds: no murmur Gastrointestinal (Abdomen): Inspection/Auscultation: abdomen normal to inspection and normal bowel sounds Percussion/Palpation: abdomen soft Musculoskeletal: Right hip pain on movement Neurologic: moves all extremities; no focal motor deficits Pleasantly confused Lymphatic: no cervical or axillary lymphadenopathy Results & Data Vital Signs (Past 12 Hours) Vital Signs Temp Pulse Pulse Resp BP BP Pulse Ox 03/21/19 15:53 81 03/21/19 13:38 84 18 93 03/21/19 11:00 37.1 C 89 18 133/57 L 91 03/21/19 08:41 97 H 03/21/19 07:16 37 C 106 H 20 125/69 94 03/21/19 07:06 97 H 16 95 Laboratory Results BMP 03/21/19 07:04 Sodium 139 Potassium 3.5 Chloride 104 Carbon Dioxide 30 BUN 29 H Creatinine 1.13 Glucose 89 Calcium 8.3 L Medications Administered Current Inpatient Medications Acetaminophen (Tylenol) 650 mg PO Q4H PRN PRN Reason: Pain or Fever Stop: 04/18/19 04:19 Hydrocodone Bitart/Acetaminophen ([place] 5/325) 1 tab PO Q8H PRN PRN Reason: Pain Stop: 04/02/19 04:45 Last Admin: 03/21/19 08:18 Dose: 1 tab Documented by: Atorvastatin Calcium (Lipitor) 20 mg PO DAILY [facility] Stop: 04/18/19 08:59 Last Admin: 03/21/19 08:13 Dose: 20 mg Documented by: Docusate Sodium (Colace) 100 mg PO BID [facility] Stop: 04/18/19 08:59 Last Admin: 03/21/19 08:13 Dose: 100 mg Documented by: Doxycycline Hyclate (Vibramycin) 100 mg PO BID [facility] Stop: 03/26/19 20:59 Last Admin: 03/21/19 08:13 Dose: 100 mg Documented by: Ertapenem (Consult) 1 ea N/A UD PRN PRN Reason: Consult Stop: 04/18/19 04:50 Famotidine (Pepcid) 20 mg PO BID PRN PRN Reason: Heartburn Stop: 04/20/19 00:29 Last Admin: 03/21/19 01:52 Dose: 20 mg Documented by: Folic Acid (Folvite) 1 mg PO DAILY [facility] Stop: 04/18/19 08:59 Last Admin: 03/21/19 08:12 Dose: 1 mg Documented by: Gabapentin (Neurontin) 300 mg PO TID [facility] Stop: 04/18/19 20:59 Last Admin: 03/21/19 13:11 Dose: 300 mg Documented by: Heparin Sodium (Porcine) (Heparin Sodium (Porcine)) 5,000 units SQ Q8 [facility] Stop: 04/18/19 05:59 Last Admin: 03/21/19 13:11 Dose: Not Given Documented by: Ertapenem 1,000 mg/ Sodium (Chloride) 60 mls @ 100 mls/hr IV DAILY@1200 [facility]; Protocol Stop: 03/28/19 11:59 Last Infusion: 03/21/19 12:10 Dose: Infused Documented by: Ipratropium [place] (Atrovent 0.02% 0.5mg/2.5ml) 0.5 mg INH Q6R [facility] Stop: 04/18/19 06:59 Last Admin: 03/21/19 13:38 Dose: 0.5 mg Documented by: Levalbuterol HCl (Xopenex 1.25mg/0.5ml Neb) 1.25 mg INH Q6R [facility] Stop: 04/18/19 06:59 Last Admin: 03/21/19 13:38 Dose: 1.25 mg Documented by: Metoprolol Succinate (Toprol Xl) 12.5 mg PO DAILY [facility] Stop: 04/18/19 08:59 Last Admin: 03/21/19 08:13 Dose: 12.5 mg Documented by: Olanzapine (Zyprexa) 2.5 mg IM Q4H PRN PRN Reason: Anxiety/Agitation Stop: 04/18/19 04:19 Pantoprazole Sodium (Protonix) 40 mg PO DAILY [facility] Stop: 04/18/19 08:59 Last Admin: 03/21/19 08:12 Dose: 40 mg Documented by: Prednisone (Prednisone) 40 mg PO DAILY [facility] Stop: 03/24/19 08:59 Last Admin: 03/21/19 08:13 Dose: 40 mg Documented by: Sertraline HCl (Zoloft) 25 mg PO DAILY [facility] Stop: 04/18/19 08:59 Last Admin: 03/21/19 08:12 Dose: 25 mg Documented by: Umeclidinium [place] (Incruse Ellipta) 1 puffs INH DAILY [facility] Stop: 04/18/19 08:59 Last Admin: 03/21/19 08:12 Dose: 1 puffs Documented by:
[2019-03-22] MEDS: LEVALBUTEROL 1.25MG/0.5ML NEB INH SCH ×4 (01:45→20:19)
[2019-03-22] MEDS: IPRATROPIUM BROMIDE NEB SOLN 0.02% 2.5 ML VIAL INH SCH ×4 (01:45→20:19)
[2019-03-22] MEDS: ACETAMINOPHEN 325 MG TAB PO PRN ×2 (02:11→22:28)
[2019-03-22] MEDS: NICOTINE 21 MG/24 HR TDSY TD SCH ×2 (02:28→17:40)
[2019-03-22] MEDS: HEPARIN SOD 5,000 UNIT/0.5 ML VIAL SQ SCH ×3 (06:28→22:14)
[2019-03-22] MEDS: DOCUSATE SODIUM 100 MG CAP PO SCH ×2 (07:47→20:30)
[2019-03-22] MEDS: UMECLIDINIUM BROMIDE 62.5MCG/BLISTER 7 PUFFS/INHALER INH SCH (07:47)
[2019-03-22] MEDS: PANTOprazole 40 MG TAB PO SCH (07:47)
[2019-03-22] MEDS: ATORVASTATIN 20 MG TAB PO SCH (07:47)
[2019-03-22] MEDS: GABAPENTIN 300 MG CAP PO SCH ×3 (07:47→20:34)
[2019-03-22] MEDS: FOLIC ACID 1 MG TAB PO SCH (07:47)
[2019-03-22] MEDS: predniSONE 20 MG TAB PO SCH (07:47)
[2019-03-22] MEDS: SERTRALINE HCL 50 MG TABLET PO SCH (07:48)
[2019-03-22] MEDS: DOXYCYCLINE HYCLATE 100 MG CAP PO SCH ×2 (07:48→20:30)
[2019-03-22] MEDS: METOPROLOL SUCC 25MG EXT REL TAB PO SCH (07:48)
[2019-03-22 07:55] LABS: Codeine Urine NEGATIVE ng/mL (<50); Hydrocodone Urine NEGATIVE ng/mL (<50); Hydromor Urine NEGATIVE ng/mL (<50); Morphine Urine NEGATIVE ng/mL (<50); Norhydrocodone Conf Ur NEGATIVE ng/mL (<50); Noroxycodone Urine 2560 ng/mL (<50); Oxycodone Urine 689 ng/mL (<50); Oxymorph Urine 1770 ng/mL (<50)
[2019-03-22 08:27] LABS: Basophils # (auto) 0.02 K/uL (0-0.2); Basophils % (auto) 0.2 %; Eosinophils # (auto) 0.08 K/uL (0-0.5); Eosinophils % (auto) 0.9 %; Hematocrit (blood only) 28.4 % (37-47); Hemoglobin 9.1 g/dL (12.0-16.0); Immature Granulocytes # (auto) 0.01 K/uL (0.00-0.02); Immature Granulocytes % (auto) 0.1 %; Lymphocytes # (auto) 1.28 K/uL (1.2-3.4); Lymphocytes % (auto) 14.6 %; Mean Corpuscular Hemoglobin 29.1 pg (25-34); Mean Corpuscular Volume 90.7 fL (80-100); Mean Platelet Volume 9.3 fL (7.4-10.4); Monocytes % (auto) 10.3 %; Neutrophils # (auto) 6.45 K/uL (1.4-6.5); Neutrophils % (auto) 73.9 %; Platelet Count 257 K/uL (130-400); RDW Coefficient of Variation 15.8 % (11.5-14.5); RDW Standard Deviation 52.5 fL (36.4-46.3); Red Blood Count 3.13 M/uL (4.2-5.4); White Blood Count 8.74 K/uL (4.8-10.8)
[2019-03-22 09:05] LABS: BUN Creatinine Ratio 26.6 (10-20); Calcium 8.6 mg/dl (8.5-10.1); Creatinine Clr Calc Pharmacy 30.4 ml/min; Est GFR (African American) 47.4; Est GFR (Non-African American) 40.9
[2019-03-22] MEDS ORDERED: POTASSIUM CHLORIDE 20 MEQ TABCR PO STA (10:01)
[2019-03-22] MEDS: ERTAPENEM SODIUM 1,000 MG in SODIUM CHLORIDE 0.9% 50 ML IV SCH (12:34)
[2019-03-22] MEDS: FAMOTIDINE 20 MG TAB PO PRN (12:34)
--- NOTE | 2019-03-22 13:27 | Hospitalist Progress Note ---
Date of Service March 22, 2019 Assessment & Plan (1) Encephalopathy: Multifactorial : Metabolic encephalopathy ESBL UTI Diagnosed on 03/14/2019 as an outpatient urine CS Has been on ertapenem since admission Will need to continue for a total of 14 days PICC line placed Remains generally weak and lethargic She has been accepted to [facility] Likely be discharged tomorrow and on Sunday COPD exacerbation, no sepsis Complicated UTI, no sepsis (history ESBL E. coli UTI on recent outpatient urine CS on 03/14/2019) ARF, clinical dehydration secondary to poor p.o. intake Neuropsychotropic/opioid medications for chronic pain Gabapentin dose has been decreased and doses of narcotics have been reduced Acute confusion is resolved Acute short of breath on 03/20/2019 Noted to have very high blood pressure with desaturation Chest x-ray showed CHF Will give 1 dose of Lasix 40 mg IV on 03/20/2019 Has some bibasilar crackles Will give additional dose of Lasix 40 mg IV on 03/21/2019 No more Lasix for now 03/22/2019 KATIE -creatinine elevated likely secondary to dehydration and use of diuretics Advised to drink more fluid Monitor creatinine Acute on chronic right hip pain Has severe osteoarthritis-not amenable to surgery Complains more pain in the hip Gabapentin will be continued with decreasing dose due to metabolic encephalopathy We will give no narcotics pain medication hx chronic diastolic heart failure (EF 55 to 59%, TTE 2018), Patient clinically dry Noted to have more shortness of breath with CXR evidence of CHF She will receive 1 dose of intravenous Lasix of 40 mg Will receive second dose of 40 mg Lasix IV on 03/21/2019 No more intravenous Lasix hx chronic respiratory failure secondary to COPD/pulmonary hypertension on home O2 ongoing tobacco abuse Noted to have shortness of breath this morning HTN, stable hx CVA/PVD as per records Acute on chronic anemia, hemoglobin drop from baseline Stool Hemoccult negative No overt source of bleeding for now Medical telemetry Doxycycline, nebs, prednisone course for COPD exacerbation Follow urine cultures, IV Ertapenem Monitor creatinine response IV fluids Appropriate to hold home neuropsychotropic/opiate medications until patient mentation at baseline Anemia work-up Trend H&H, transfuse PRBC if hemoglobin less than 8 and or for symptomatic anemia Hemoglobin remains stable at 8.6 PT OT eval DVT prophylaxis. Heparin subcu Full code Patient's daughter (Ms. Milagro Lopez, contact #[phone]) Discussed with the daughter Likely discharge tomorrow to [facility]. Subjective 03/19/2019 The patient was seen and examined in the medical floor in presence of the sister She has been less active recently at home Complains to have lots of right hip pain which is inoperable as per the sister She has had a urine test recently as an outpatient that grew ESBL She came in with ambulatory dysfunction 03/20/2019 The patient was seen and examined today in medical floor She did not look good this morning with shortness of breath, desaturation and fluctuating blood pressure Denied any pain 03/21/2019 The patient was seen and examined in medical telemetry unit She has been feeling a lot better today and denies any complaints Shortness of breath is better and the pain in the right hip is tolerable 03/22/2019 The patient was seen and examined in medical floor She remains very lethargic today and complains to have some cough Her breathing is much better Her right hip pain is controlled Review of Systems Review of Systems: All systems reviewed and are unremarkable except as noted below Respiratory: + cough; no dyspnea Neurologic: Pleasantly confused Physical Exam Physical Exam: Lying in bed with minimal distress secondary to cough Constitutional: + thin; no acute distress Eyes: PERRL, conjunctivae normal, anicteric sclerae ENMT: external ear and nose normal, oropharynx normal Neck: trachea midline, no thyromegaly Respiratory: no respiratory distress Auscultation: + diminished lung sounds and + crackles (Moderate crackles at the bases) Cardiovascular: Rate/Rhythm: regular rate and regular rhythm Heart Sounds: no murmur Gastrointestinal (Abdomen): Inspection/Auscultation: abdomen normal to inspection and normal bowel sounds Percussion/Palpation: abdomen soft Neurologic: moves all extremities; no focal motor deficits Lymphatic: no cervical or axillary lymphadenopathy Results & Data Vital Signs (Past 12 Hours) Vital Signs Temp Pulse Pulse Resp BP BP Pulse Ox 03/22/19 11:45 36.8 C 86 20 165/67 H 94 03/22/19 08:00 81 03/22/19 07:43 36.5 C 70 18 97/56 L 98 03/22/19 07:39 84 18 86 L 03/22/19 04:24 36.9 C 88 19 154/57 H 94 03/22/19 01:47 88 22 94 Laboratory Results Short CBC 03/22/19 Range/Units 08:05 WBC 8.74 (4.8-10.8) K/uL Hgb 9.1 L (12.0-16.0) g/dL Hct 28.4 L (37-47) % Plt Count 257 (130-400) K/uL BMP 03/22/19 08:05 Sodium 139 Potassium 3.0 L Chloride 102 Carbon Dioxide 32 BUN 34 H Creatinine 1.28 H Glucose 93 Calcium 8.6 Medications Administered Current Inpatient Medications Acetaminophen (Tylenol) 650 mg PO Q4H PRN PRN Reason: Pain or Fever Stop: 04/18/19 04:19 Last Admin: 03/22/19 02:11 Dose: 650 mg Documented by: Hydrocodone Bitart/Acetaminophen ([place] 5/325) 1 tab PO Q8H PRN PRN Reason: Pain Stop: 04/02/19 04:45 Last Admin: 03/21/19 21:39 Dose: 1 tab Documented by: Atorvastatin Calcium (Lipitor) 20 mg PO DAILY [facility] Stop: 04/18/19 08:59 Last Admin: 03/22/19 07:47 Dose: 20 mg Documented by: Docusate Sodium (Colace) 100 mg PO BID [facility] Stop: 04/18/19 08:59 Last Admin: 03/22/19 07:47 Dose: 100 mg Documented by: Doxycycline Hyclate (Vibramycin) 100 mg PO BID [facility] Stop: 03/26/19 20:59 Last Admin: 03/22/19 07:48 Dose: 100 mg Documented by: Ertapenem (Consult) 1 ea N/A UD PRN PRN Reason: Consult Stop: 04/18/19 04:50 Famotidine (Pepcid) 20 mg PO BID PRN PRN Reason: Heartburn Stop: 04/20/19 00:29 Last Admin: 03/22/19 12:34 Dose: 20 mg Documented by: Folic Acid (Folvite) 1 mg PO DAILY [facility] Stop: 04/18/19 08:59 Last Admin: 03/22/19 07:47 Dose: 1 mg Documented by: Gabapentin (Neurontin) 300 mg PO TID [facility] Stop: 04/18/19 20:59 Last Admin: 03/22/19 07:47 Dose: 300 mg Documented by: Heparin Sodium (Porcine) (Heparin Sodium (Porcine)) 5,000 units SQ Q8 [facility] Stop: 04/18/19 05:59 Last Admin: 03/22/19 06:28 Dose: Not Given Documented by: Ertapenem 1,000 mg/ Sodium (Chloride) 60 mls @ 100 mls/hr IV DAILY@1200 [facility]; Protocol Stop: 03/28/19 11:59 Last Infusion: 03/22/19 13:19 Dose: Infused Documented by: Ipratropium [place] (Atrovent 0.02% 0.5mg/2.5ml) 0.5 mg INH Q6R [facility] Stop: 04/18/19 06:59 Last Admin: 03/22/19 13:24 Dose: 0.5 mg Documented by: Levalbuterol HCl (Xopenex 1.25mg/0.5ml Neb) 1.25 mg INH Q6R [facility] Stop: 04/18/19 06:59 Last Admin: 03/22/19 13:24 Dose: 1.25 mg Documented by: Metoprolol Succinate (Toprol Xl) 12.5 mg PO DAILY [facility] Stop: 04/18/19 08:59 Last Admin: 03/22/19 07:48 Dose: Not Given Documented by: Miscellaneous (Remove Nicoderm Patch) 1 ea N/A DAILY@0859 [facility] Stop: 04/21/19 08:58 Last Admin: 03/22/19 07:48 Dose: 1 ea Documented by: Nicotine (Nicoderm Cq) 21 mg TD DAILY [facility] Stop: 04/21/19 02:09 Last Admin: 03/22/19 02:28 Dose: 21 mg Documented by: Olanzapine (Zyprexa) 2.5 mg IM Q4H PRN PRN Reason: Anxiety/Agitation Stop: 04/18/19 04:19 Pantoprazole Sodium (Protonix) 40 mg PO DAILY [facility] Stop: 04/18/19 08:59 Last Admin: 03/22/19 07:47 Dose: 40 mg Documented by: Prednisone (Prednisone) 40 mg PO DAILY [facility] Stop: 03/24/19 08:59 Last Admin: 03/22/19 07:47 Dose: 40 mg Documented by: Sertraline HCl (Zoloft) 25 mg PO DAILY [facility] Stop: 04/18/19 08:59 Last Admin: 03/22/19 07:48 Dose: 25 mg Documented by: Umeclidinium [place] (Incruse Ellipta) 1 puffs INH DAILY [facility] Stop: 04/18/19 08:59 Last Admin: 03/22/19 07:47 Dose: 1 puffs Documented by:
[2019-03-22] MEDS: HYDROCODONE/ACETAMOPHEN 5/325MG TAB PO PRN (17:39)
[2019-03-23] MEDS: HYDROCODONE/ACETAMOPHEN 5/325MG TAB PO PRN ×3 (01:21→21:15)
[2019-03-23] MEDS: LEVALBUTEROL 1.25MG/0.5ML NEB INH SCH ×4 (01:38→19:22)
[2019-03-23] MEDS: IPRATROPIUM BROMIDE NEB SOLN 0.02% 2.5 ML VIAL INH SCH ×4 (01:38→19:23)
[2019-03-23] MEDS: HEPARIN SOD 5,000 UNIT/0.5 ML VIAL SQ SCH ×3 (05:30→21:17)
[2019-03-23 06:23] LABS: Basophils # (auto) 0.01 K/uL (0-0.2); Basophils % (auto) 0.2 %; Eosinophils # (auto) 0.08 K/uL (0-0.5); Eosinophils % (auto) 1.4 %; Hematocrit (blood only) 25.1 % (37-47); Hemoglobin 7.9 g/dL (12.0-16.0); Immature Granulocytes # (auto) 0.01 K/uL (0.00-0.02); Immature Granulocytes % (auto) 0.2 %; Lymphocytes # (auto) 1.01 K/uL (1.2-3.4); Lymphocytes % (auto) 17.7 %; Mean Corpuscular Hemoglobin 28.6 pg (25-34); Mean Corpuscular Hgb Conc 31.5 g/dL (32-36); Mean Corpuscular Volume 90.9 fL (80-100); Mean Platelet Volume 9.3 fL (7.4-10.4); Monocytes # (auto) 0.59 K/uL (0.11-0.59); Monocytes % (auto) 10.3 %; Neutrophils # (auto) 4.02 K/uL (1.4-6.5); Neutrophils % (auto) 70.2 %; Platelet Count 240 K/uL (130-400); RDW Coefficient of Variation 15.7 % (11.5-14.5); RDW Standard Deviation 51.9 fL (36.4-46.3); Red Blood Count 2.76 M/uL (4.2-5.4); White Blood Count 5.72 K/uL (4.8-10.8)
[2019-03-23 06:43] LABS: Hypochromasia Present
[2019-03-23 07:08] LABS: BUN Creatinine Ratio 35.5 (10-20); Calcium 8.6 mg/dl (8.5-10.1); Creatinine Clr Calc Pharmacy 38.6 ml/min; Est GFR (African American) 62.3; Est GFR (Non-African American) 53.8; Potassium 3.6 mmol/L (3.5-5.1)
[2019-03-23] MEDS: SERTRALINE HCL 50 MG TABLET PO SCH (08:39)
[2019-03-23] MEDS: PANTOprazole 40 MG TAB PO SCH (08:39)
[2019-03-23] MEDS: predniSONE 20 MG TAB PO SCH (08:39)
[2019-03-23] MEDS: ATORVASTATIN 20 MG TAB PO SCH (08:39)
[2019-03-23] MEDS: DOCUSATE SODIUM 100 MG CAP PO SCH ×2 (08:39→21:17)
[2019-03-23] MEDS: NICOTINE 21 MG/24 HR TDSY TD SCH (08:39)
[2019-03-23] MEDS: FOLIC ACID 1 MG TAB PO SCH (08:39)
[2019-03-23] MEDS: UMECLIDINIUM BROMIDE 62.5MCG/BLISTER 7 PUFFS/INHALER INH SCH (08:39)
[2019-03-23] MEDS: METOPROLOL SUCC 25MG EXT REL TAB PO SCH (08:39)
[2019-03-23] MEDS: DOXYCYCLINE HYCLATE 100 MG CAP PO SCH ×2 (08:39→21:17)
[2019-03-23] MEDS: GABAPENTIN 300 MG CAP PO SCH ×3 (08:39→21:16)
--- NOTE | 2019-03-23 11:31 | Hospitalist Progress Note ---
Date of Service March 23, 2019 Assessment & Plan (1) Encephalopathy: Multifactorial : Metabolic encephalopathy ESBL UTI Diagnosed on 03/14/2019 as an outpatient urine CS Has been on ertapenem since admission Will need to continue for a total of 14 days PICC line placed Remains generally weak and lethargic She has been accepted to [facility] Likely be discharged tomorrow and on Sunday Medically stable to be transferred to [facility] COPD exacerbation, no sepsis Complicated UTI, no sepsis (history ESBL E. coli UTI on recent outpatient urine CS on 03/14/2019) ARF, clinical dehydration secondary to poor p.o. intake Neuropsychotropic/opioid medications for chronic pain Gabapentin dose has been decreased and doses of narcotics have been reduced Acute confusion is resolved Acute short of breath on 03/20/2019 Noted to have very high blood pressure with desaturation Chest x-ray showed CHF Will give 1 dose of Lasix 40 mg IV on 03/20/2019 Has some bibasilar crackles Will give additional dose of Lasix 40 mg IV on 03/21/2019 No more Lasix for now 03/22/2019 KATIE -creatinine elevated likely secondary to dehydration and use of diuretics Advised to drink more fluid Monitor creatinine-creatinine has been normalized Acute on chronic right hip pain Has severe osteoarthritis-not amenable to surgery Complains more pain in the hip Gabapentin will be continued with decreasing dose due to metabolic encephalopathy We will give no narcotics pain medication Right hip pain seems to be controlled with current medications hx chronic diastolic heart failure (EF 55 to 59%, TTE 2019), Patient clinically dry Noted to have more shortness of breath with CXR evidence of CHF She will receive 1 dose of intravenous Lasix of 40 mg Will receive second dose of 40 mg Lasix IV on 03/21/2019 No more intravenous Lasix Will continue with oral Lasix as before hx chronic respiratory failure secondary to COPD/pulmonary hypertension on home O2 ongoing tobacco abuse Noted to have shortness of breath this morning Continue with home O2 HTN, stable hx CVA/PVD as per records Acute on chronic anemia, hemoglobin drop from baseline Stool Hemoccult negative No overt source of bleeding for now Medical telemetry Doxycycline, nebs, prednisone course for COPD exacerbation Follow urine cultures, IV Ertapenem Monitor creatinine response IV fluids Appropriate to hold home neuropsychotropic/opiate medications until patient mentation at baseline Anemia work-up Trend H&H, transfuse PRBC if hemoglobin less than 8 and or for symptomatic anemia Hemoglobin remains stable at 8.6 PT OT eval DVT prophylaxis. Heparin subcu Full code Patient's daughter (Ms. Milagro Lopez, contact #[phone]) Discussed with the daughter Will be transferred to [facility] today /or tomorrow Subjective 03/19/2019 The patient was seen and examined in the medical floor in presence of the sister She has been less active recently at home Complains to have lots of right hip pain which is inoperable as per the sister She has had a urine test recently as an outpatient that grew ESBL She came in with ambulatory dysfunction 03/20/2019 The patient was seen and examined today in medical floor She did not look good this morning with shortness of breath, desaturation and fluctuating blood pressure Denied any pain 03/21/2019 The patient was seen and examined in medical telemetry unit She has been feeling a lot better today and denies any complaints Shortness of breath is better and the pain in the right hip is tolerable 03/22/2019 The patient was seen and examined in medical floor She remains very lethargic today and complains to have some cough Her breathing is much better Her right hip pain is controlled 03/23/2019 The patient was seen and examined in medical floor She has been doing much better today and was asking me when she can get out of the hospital Denies any significant pain in her right hip Has been participating in physical therapy Review of Systems Review of Systems: All systems reviewed and are unremarkable except as noted below Respiratory: + cough; no dyspnea Neurologic: Pleasantly confused Physical Exam Physical Exam: Lying in bed comfortably Constitutional: + thin; no acute distress Eyes: PERRL, conjunctivae normal, anicteric sclerae ENMT: external ear and nose normal, oropharynx normal Neck: trachea midline, no thyromegaly Respiratory: no respiratory distress Auscultation: + diminished lung sounds and + crackles (Moderate crackles at the right base) Cardiovascular: Rate/Rhythm: regular rate and regular rhythm Heart Sounds: no murmur Gastrointestinal (Abdomen): Inspection/Auscultation: abdomen normal to inspection and normal bowel sounds Percussion/Palpation: abdomen soft Neurologic: moves all extremities; no focal motor deficits Lymphatic: no cervical or axillary lymphadenopathy Results & Data Vital Signs (Past 12 Hours) Vital Signs Temp Pulse Pulse Resp BP BP Pulse Ox 03/23/19 09:00 78 03/23/19 07:50 36.9 C 88 20 142/57 H 96 03/23/19 07:17 82 19 97 03/23/19 03:34 36.5 C 82 16 141/67 H 97 03/23/19 02:46 87 03/23/19 01:42 76 18 99 03/22/19 23:35 36.5 C 82 16 143/68 H 96 Laboratory Results Short CBC 03/23/19 Range/Units 05:50 WBC 5.72 (4.8-10.8) K/uL Hgb 7.9 L (12.0-16.0) g/dL Hct 25.1 L (37-47) % Plt Count 240 (130-400) K/uL BMP 03/23/19 05:50 Sodium 139 Potassium 3.6 D Chloride 104 Carbon Dioxide 29 BUN 36 H Creatinine 1.02 Glucose 92 Calcium 8.6 Medications Administered Current Inpatient Medications Acetaminophen (Tylenol) 650 mg PO Q4H PRN PRN Reason: Pain or Fever Stop: 04/18/19 04:19 Last Admin: 03/22/19 22:28 Dose: 650 mg Documented by: Hydrocodone Bitart/Acetaminophen ([place] 5/325) 1 tab PO Q8H PRN PRN Reason: Pain Stop: 04/02/19 04:45 Last Admin: 03/23/19 01:21 Dose: 1 tab Documented by: Atorvastatin Calcium (Lipitor) 20 mg PO DAILY [facility] Stop: 04/18/19 08:59 Last Admin: 03/23/19 08:39 Dose: 20 mg Documented by: Docusate Sodium (Colace) 100 mg PO BID [facility] Stop: 04/18/19 08:59 Last Admin: 03/23/19 08:39 Dose: 100 mg Documented by: Doxycycline Hyclate (Vibramycin) 100 mg PO BID [facility] Stop: 03/26/19 20:59 Last Admin: 03/23/19 08:39 Dose: 100 mg Documented by: Ertapenem (Consult) 1 ea N/A UD PRN PRN Reason: Consult Stop: 04/18/19 04:50 Famotidine (Pepcid) 20 mg PO BID PRN PRN Reason: Heartburn Stop: 04/20/19 00:29 Last Admin: 03/22/19 12:34 Dose: 20 mg Documented by: Folic Acid (Folvite) 1 mg PO DAILY [facility] Stop: 04/18/19 08:59 Last Admin: 03/23/19 08:39 Dose: 1 mg Documented by: Gabapentin (Neurontin) 300 mg PO TID [facility] Stop: 04/18/19 20:59 Last Admin: 03/23/19 08:39 Dose: 300 mg Documented by: Heparin Sodium (Porcine) (Heparin Sodium (Porcine)) 5,000 units SQ Q8 [facility] Stop: 04/18/19 05:59 Last Admin: 03/23/19 05:30 Dose: Not Given Documented by: Ertapenem 1,000 mg/ Sodium (Chloride) 60 mls @ 100 mls/hr IV DAILY@1200 [facility]; Protocol Stop: 03/28/19 11:59 Last Infusion: 03/22/19 13:19 Dose: Infused Documented by: Ipratropium [place] (Atrovent 0.02% 0.5mg/2.5ml) 0.5 mg INH Q6R [facility] Stop: 04/18/19 06:59 Last Admin: 03/23/19 07:16 Dose: 0.5 mg Documented by: Levalbuterol HCl (Xopenex 1.25mg/0.5ml Neb) 1.25 mg INH Q6R [facility] Stop: 04/18/19 06:59 Last Admin: 03/23/19 07:16 Dose: 1.25 mg Documented by: Metoprolol Succinate (Toprol Xl) 12.5 mg PO DAILY [facility] Stop: 04/18/19 08:59 Last Admin: 03/23/19 08:39 Dose: 12.5 mg Documented by: Miscellaneous (Remove Nicoderm Patch) 1 ea N/A DAILY@0859 [facility] Stop: 04/21/19 08:58 Last Admin: 03/23/19 08:39 Dose: 1 ea Documented by: Nicotine (Nicoderm Cq) 21 mg TD DAILY [facility] Stop: 04/21/19 02:09 Last Admin: 03/23/19 08:39 Dose: 21 mg Documented by: Olanzapine (Zyprexa) 2.5 mg IM Q4H PRN PRN Reason: Anxiety/Agitation Stop: 04/18/19 04:19 Pantoprazole Sodium (Protonix) 40 mg PO DAILY [facility] Stop: 04/18/19 08:59 Last Admin: 01/26/20 08:39 Dose: 40 mg Documented by: Prednisone (Prednisone) 40 mg PO DAILY [facility] Stop: 03/24/19 08:59 Last Admin: 03/23/19 08:39 Dose: 40 mg Documented by: Sertraline HCl (Zoloft) 25 mg PO DAILY [facility] Stop: 04/18/19 08:59 Last Admin: 03/23/19 08:39 Dose: 25 mg Documented by: Umeclidinium [place] (Incruse Ellipta) 1 puffs INH DAILY [facility] Stop: 04/18/19 08:59 Last Admin: 03/23/19 08:39 Dose: 1 puffs Documented by:
[2019-03-23] MEDS: FAMOTIDINE 20 MG TAB PO PRN (12:34)
[2019-03-23] MEDS: ERTAPENEM SODIUM 1,000 MG in SODIUM CHLORIDE 0.9% 50 ML IV SCH (12:37)
[2019-03-24] MEDS: LEVALBUTEROL 1.25MG/0.5ML NEB INH SCH ×3 (01:36→13:36)
[2019-03-24] MEDS: IPRATROPIUM BROMIDE NEB SOLN 0.02% 2.5 ML VIAL INH SCH ×3 (01:36→13:36)
[2019-03-24] MEDS: HEPARIN SOD 5,000 UNIT/0.5 ML VIAL SQ SCH ×2 (06:08→12:25)
[2019-03-24] MEDS: UMECLIDINIUM BROMIDE 62.5MCG/BLISTER 7 PUFFS/INHALER INH SCH (07:50)
[2019-03-24] MEDS: DOCUSATE SODIUM 100 MG CAP PO SCH (07:50)
[2019-03-24] MEDS: SERTRALINE HCL 50 MG TABLET PO SCH (07:51)
[2019-03-24] MEDS: DOXYCYCLINE HYCLATE 100 MG CAP PO SCH (07:51)
[2019-03-24] MEDS: FOLIC ACID 1 MG TAB PO SCH (07:51)
[2019-03-24] MEDS: ATORVASTATIN 20 MG TAB PO SCH (07:51)
[2019-03-24] MEDS: PANTOprazole 40 MG TAB PO SCH (07:51)
[2019-03-24] MEDS: HYDROCODONE/ACETAMOPHEN 5/325MG TAB PO PRN ×2 (07:51→16:10)
[2019-03-24] MEDS: GABAPENTIN 300 MG CAP PO SCH ×2 (07:51→12:26)
[2019-03-24] MEDS: METOPROLOL SUCC 25MG EXT REL TAB PO SCH (07:51)
[2019-03-24] MEDS: NICOTINE 21 MG/24 HR TDSY TD SCH (07:51)
[2019-03-24] MEDS ORDERED: POTASSIUM CHLORIDE 20 MEQ TABCR PO STA (07:57)
[2019-03-24 08:11] LABS: Basophils # (auto) 0.01 K/uL (0-0.2); Basophils % (auto) 0.1 %; Eosinophils # (auto) 0.14 K/uL (0-0.5); Eosinophils % (auto) 1.9 %; Hematocrit (blood only) 27.8 % (37-47); Hemoglobin 8.8 g/dL (12.0-16.0); Immature Granulocytes # (auto) 0.02 K/uL (0.00-0.02); Immature Granulocytes % (auto) 0.3 %; Lymphocytes # (auto) 1.36 K/uL (1.2-3.4); Lymphocytes % (auto) 18.1 %; Mean Corpuscular Hemoglobin 28.8 pg (25-34); Mean Corpuscular Hgb Conc 31.7 g/dL (32-36); Mean Corpuscular Volume 90.8 fL (80-100); Mean Platelet Volume 9.1 fL (7.4-10.4); Monocytes # (auto) 0.82 K/uL (0.11-0.59); Monocytes % (auto) 10.9 %; Neutrophils # (auto) 5.15 K/uL (1.4-6.5); Neutrophils % (auto) 68.7 %; Platelet Count 280 K/uL (130-400); RDW Coefficient of Variation 15.5 % (11.5-14.5); RDW Standard Deviation 51.4 fL (36.4-46.3); Red Blood Count 3.06 M/uL (4.2-5.4)
[2019-03-24 08:46] LABS: BUN Creatinine Ratio 31.2 (10-20); Calcium 8.8 mg/dl (8.5-10.1); Est GFR (African American) 62.6; Magnesium 2.1 mg/dl (1.8-2.4); Potassium 3.9 mmol/L (3.5-5.1)
--- NOTE | 2019-03-24 11:22 | Hospitalist Progress Note ---
Date of Service March 24, 2019 Assessment & Plan (1) Encephalopathy: Multifactorial : Metabolic encephalopathy ESBL UTI Diagnosed on 03/14/2019 as an outpatient urine CS Has been on ertapenem since admission Will need to continue for a total of 14 days PICC line placed Remains generally weak and lethargic She has been accepted to [facility] Likely be discharged tomorrow and on Sunday Medically stable to be transferred to [facility] Remains stable and will be transferred to [facility] this afternoon COPD exacerbation, no sepsis Complicated UTI, no sepsis (history ESBL E. coli UTI on recent outpatient urine CS on 03/14/2019) ARF, clinical dehydration secondary to poor p.o. intake Neuropsychotropic/opioid medications for chronic pain Gabapentin dose has been decreased and doses of narcotics have been reduced Acute short of breath on 03/20/2019 Noted to have very high blood pressure with desaturation Chest x-ray showed CHF Will give 1 dose of Lasix 40 mg IV on 03/20/2019 Has some bibasilar crackles Will give additional dose of Lasix 40 mg IV on 03/21/2019 No more Lasix for now 03/22/2019 KATIE -creatinine elevated likely secondary to dehydration and use of diuretics Advised to drink more fluid Monitor creatinine-creatinine has been normalized Acute on chronic right hip pain Has severe osteoarthritis-not amenable to surgery Complains more pain in the hip Gabapentin will be continued with decreasing dose due to metabolic encephalopathy We will give no narcotics pain medication Right hip pain seems to be controlled with current medications hx chronic diastolic heart failure (EF 55 to 59%, TTE 2019), Patient clinically dry Noted to have more shortness of breath with CXR evidence of CHF She will receive 1 dose of intravenous Lasix of 40 mg Will receive second dose of 40 mg Lasix IV on 03/21/2019 No more intravenous Lasix Will continue with oral Lasix as before Renal function remains stable to restart outpatient dose of Lasix hx chronic respiratory failure secondary to COPD/pulmonary hypertension on home O2 ongoing tobacco abuse Noted to have shortness of breath this morning Continue with home O2 We will continue oxygen as she was taking before HTN, stable hx CVA/PVD as per records Acute on chronic anemia, hemoglobin drop from baseline Stool Hemoccult negative No overt source of bleeding for now Medical telemetry Doxycycline, nebs, prednisone course for COPD exacerbation Follow urine cultures, IV Ertapenem Monitor creatinine response IV fluids Appropriate to hold home neuropsychotropic/opiate medications until patient mentation at baseline Anemia work-up Trend H&H, transfuse PRBC if hemoglobin less than 8 and or for symptomatic anemia Hemoglobin remains stable at 8.8 PT OT eval DVT prophylaxis. Heparin subcu Full code Patient's daughter (Ms. Milagro Lopez, contact #[phone]) Discussed with the daughter Will be transferred to [facility] today /or tomorrow Subjective 03/24/2019 The patient was seen and examined in medical floor She denies any complaints and is ready to be discharged She remains hemodynamically stable 03/19/2019 The patient was seen and examined in the medical floor in presence of the sister She has been less active recently at home Complains to have lots of right hip pain which is inoperable as per the sister She has had a urine test recently as an outpatient that grew ESBL She came in with ambulatory dysfunction 03/20/2019 The patient was seen and examined today in medical floor She did not look good this morning with shortness of breath, desaturation and fluctuating blood pressure Denied any pain 03/21/2019 The patient was seen and examined in medical telemetry unit She has been feeling a lot better today and denies any complaints Shortness of breath is better and the pain in the right hip is tolerable 03/22/2019 The patient was seen and examined in medical floor She remains very lethargic today and complains to have some cough Her breathing is much better Her right hip pain is controlled 03/23/2019 The patient was seen and examined in medical floor She has been doing much better today and was asking me when she can get out of the hospital Denies any significant pain in her right hip Has been participating in physical therapy Review of Systems Review of Systems: All systems reviewed and are unremarkable except as noted below Respiratory: no cough and no dyspnea Neurologic: Pleasantly confused Physical Exam Physical Exam: Lying in bed without any distress Constitutional: + thin; no acute distress Eyes: PERRL, conjunctivae normal, anicteric sclerae ENMT: external ear and nose normal, oropharynx normal Neck: trachea midline, no thyromegaly Respiratory: no respiratory distress Auscultation: + diminished lung sounds and + crackles (Moderate crackles at the right base) Cardiovascular: Rate/Rhythm: regular rate and regular rhythm Heart Sounds: no murmur Extremities: no edema Gastrointestinal (Abdomen): Inspection/Auscultation: abdomen normal to inspection and normal bowel sounds Percussion/Palpation: abdomen soft Neurologic: moves all extremities; no focal motor deficits Lymphatic: no cervical or axillary lymphadenopathy Results & Data Vital Signs (Past 12 Hours) Vital Signs Temp Pulse Pulse Resp BP Pulse Ox 03/24/19 08:00 77 03/24/19 07:22 36.9 C 81 22 103/64 96 03/24/19 07:09 78 96 03/24/19 03:51 36.7 C 82 18 115/69 94 03/24/19 01:36 77 16 96 03/24/19 00:00 78 Laboratory Results Short CBC 03/24/19 Range/Units 07:51 WBC 7.50 (4.8-10.8) K/uL Hgb 8.8 L (12.0-16.0) g/dL Hct 27.8 L (37-47) % Plt Count 280 (130-400) K/uL BMP 03/24/19 07:50 Sodium 140 Potassium 3.9 Chloride 105 Carbon Dioxide 29 BUN 32 H Creatinine 1.01 Glucose 90 Calcium 8.8 Medications Administered Current Inpatient Medications Acetaminophen (Tylenol) 650 mg PO Q4H PRN PRN Reason: Pain or Fever Stop: 04/18/19 04:19 Last Admin: 03/22/19 22:28 Dose: 650 mg Documented by: Hydrocodone Bitart/Acetaminophen ([place] 5/325) 1 tab PO Q8H PRN PRN Reason: Pain Stop: 04/02/19 04:45 Last Admin: 03/24/19 07:51 Dose: 1 tab Documented by: Atorvastatin Calcium (Lipitor) 20 mg PO DAILY [facility] Stop: 04/18/19 08:59 Last Admin: 03/24/19 07:51 Dose: 20 mg Documented by: Docusate Sodium (Colace) 100 mg PO BID [facility] Stop: 04/18/19 08:59 Last Admin: 03/24/19 07:50 Dose: 100 mg Documented by: Doxycycline Hyclate (Vibramycin) 100 mg PO BID [facility] Stop: 03/26/19 20:59 Last Admin: 03/24/19 07:51 Dose: 100 mg Documented by: Ertapenem (Consult) 1 ea N/A UD PRN PRN Reason: Consult Stop: 04/18/19 04:50 Famotidine (Pepcid) 20 mg PO BID PRN PRN Reason: Heartburn Stop: 04/20/19 00:29 Last Admin: 03/23/19 12:34 Dose: 20 mg Documented by: Folic Acid (Folvite) 1 mg PO DAILY [facility] Stop: 04/18/19 08:59 Last Admin: 03/24/19 07:51 Dose: 1 mg Documented by: Gabapentin (Neurontin) 300 mg PO TID [facility] Stop: 04/18/19 20:59 Last Admin: 03/24/19 07:51 Dose: 300 mg Documented by: Heparin Sodium (Porcine) (Heparin Sodium (Porcine)) 5,000 units SQ Q8 [facility] Stop: 04/18/19 05:59 Last Admin: 03/24/19 06:08 Dose: Not Given Documented by: Ertapenem 1,000 mg/ Sodium (Chloride) 60 mls @ 100 mls/hr IV DAILY@1200 AKSHAT; Protocol Stop: 03/28/19 11:59 Last Infusion: 03/23/19 13:14 Dose: Infused Documented by: Ipratropium [place] (Atrovent 0.02% 0.5mg/2.5ml) 0.5 mg INH Q6R [facility] Stop: 04/18/19 06:59 Last Admin: 03/24/19 07:07 Dose: 0.5 mg Documented by: Levalbuterol HCl (Xopenex 1.25mg/0.5ml Neb) 1.25 mg INH Q6R [facility] Stop: 04/18/19 06:59 Last Admin: 03/24/19 07:07 Dose: 1.25 mg Documented by: Metoprolol Succinate (Toprol Xl) 12.5 mg PO DAILY [facility] Stop: 04/18/19 08:59 Last Admin: 03/24/19 07:51 Dose: 12.5 mg Documented by: Miscellaneous (Remove Nicoderm Patch) 1 ea N/A DAILY@0859 [facility] Stop: 04/21/19 08:58 Last Admin: 03/24/19 07:50 Dose: 1 ea Documented by: Nicotine (Nicoderm Cq) 21 mg TD DAILY [facility] Stop: 04/21/19 02:09 Last Admin: 03/24/19 07:51 Dose: 21 mg Documented by: Olanzapine (Zyprexa) 2.5 mg IM Q4H PRN PRN Reason: Anxiety/Agitation Stop: 04/18/19 04:19 Pantoprazole Sodium (Protonix) 40 mg PO DAILY [facility] Stop: 04/18/19 08:59 Last Admin: 03/24/19 07:51 Dose: 40 mg Documented by: Sertraline HCl (Zoloft) 25 mg PO DAILY [facility] Stop: 04/18/19 08:59 Last Admin: 03/24/19 07:51 Dose: 25 mg Documented by: Umeclidinium [place] (Incruse Ellipta) 1 puffs INH DAILY [facility] Stop: 04/18/19 08:59 Last Admin: 03/24/19 07:50 Dose: 1 puffs Documented by:
[2019-03-24 11:34] VITALS: TEMP 98.2
[2019-03-24] MEDS: ERTAPENEM SODIUM 1,000 MG in SODIUM CHLORIDE 0.9% 50 ML IV SCH (12:26)
[2019-03-24 13:38] VITALS: PULSE 75; O2SAT 96
[2019-03-24 13:54] VITALS: BP 143/68
--- NOTE | 2019-03-25 08:04 | Discharge Summary ---
Date of Service March 25, 2019 Admission HPI Per Admitting Provider History obtained from patient and records. Patient is a fair historian. Medical history significant for chronic diastolic heart failure (EF 55 to 59%, TTE 2018), chronic respiratory failure secondary to COPD/pulmonary hypertension on home O2, ongoing tobacco abuse, HTN, history of PVD as per records, history of CVA as per records, chronic anemia (baseline hemoglobin 11), history of ESBL E. coli as per records, history of chronic pancreatitis as per records, chronic hip pain secondary to avascular necrosis on narcotics. Recent confinement November 2018 for metabolic encephalopathy attributed to medications. Patient seen at PCPs office 2 weeks ago for follow-up. Patient tearful due to ongoing right hip pain as per records. Discussion about possible hospice. Patient has been ill for about a week. Productive cough of junky sputum. No chest pain, shortness of breath and exertion as per patient. Poor appetite. Worsening right back pain as per patient. No unusual abdominal discomfort. Some constipation. Denies black/bloody stools. Outpatient urine cultures ESBL E. coli (10-100,000 CFUs/mL). PCPs office consulted [facility]. No antibiotic recommended unless patient having UTI symptoms. Patient noted by family to have visual hallucinations at home. Patient noted to be confused at home and to have visual hallucinations (e.g. , cats in the house) by family. At the ER, patient received Solu-Medrol, neb treatment for possible COPD exacerbation. MEDICAL HISTORY: SURGERIES: Appendectomy, hysterectomy, cholecystectomy, hernia repair, cystoscopy FAMILY HISTORY: Lung cancer and heart disease. PERSONAL AND SOCIAL HISTORY: 5 cigarettes daily. No chronic intake of alcoholic beverages. 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 Admission Exam Per Admitting Provider Physical Exam: GENERAL: Slightly uncomfortable, episodic lethargy, no respiratory distress SKIN: Pallor , warm HEENT: Pale palpebral conjunctivae, no ptosis, dry buccal mucosa, nasal cannula in place NECK : Supple, no tenderness CHEST : Decreased breath sounds, expiratory wheezes, no tenderness HEART : RRR, no obvious murmurs ABDOMEN: Soft, nontender RECTAL : Intact sphincter, yellow stool (FOBT negative) EXTREMITIES : Chronic right hip tenderness, no LE swelling, no other conspicuous deformities noted NEUROLOGIC : Coherent, episodic lethargy, no facial asymmetry, no other gross focality Principal Diagnosis Metabolic encephalopathy secondary to ESBL UTI, COPD exacerbation, chronic diastolic heart failure, right hip pain due to osteoarthritis Discharge Exam Constitutional + thin; no acute distress Eyes PERRL, conjunctivae normal, anicteric sclerae ENMT external ear and nose normal, oropharynx normal Neck trachea midline, no thyromegaly Respiratory no respiratory distress Auscultation: + diminished lung sounds and + crackles (Moderate crackles at the right base) Cardiovascular Rate/Rhythm: regular rate and regular rhythm Heart Sounds: no murmur Extremities: no edema Gastrointestinal (Abdomen) Inspection/Auscultation: abdomen normal to inspection and normal bowel sounds Percussion/Palpation: abdomen soft Neurologic moves all extremities; no focal motor deficits Lymphatic no cervical or axillary lymphadenopathy Discharge Data Allergies Allergy/AdvReac Type Severity Reaction Status Date / Time Cipro Allergy Mild ITCHY Verified 05/29/16 16:32 ciprofloxacin Allergy Mild ITCHY Verified 03/19/19 01:50 Influenza Virus Vaccines Allergy Unknown HIVES ON Unverified 03/19/19 01:50 THE SITE Nitrate Analogues Allergy Unknown UNSURE; Verified 03/19/19 01:50 BUT PATIENT TAKES NITROSTAT PER ADMIT MED REC. nitrofurantoin Allergy Unknown UNSURE Verified 03/19/19 01:50 pneumococcal vaccine Allergy Unknown unk Verified 03/19/19 01:50 azithromycin Allergy Unknown Verified 03/19/19 01:50 Consultations 03/19/19 02:03 ED Decision to Admit Stat 03/19/19 04:20 Consult Case Management - Discharge Planning Routine Ordered Studies 03/18/19 23:55 CT head/brain wo con Urgent 03/19/19 02:59 CT abd pelvis wo con Urgent Hospital Course (1) Encephalopathy: Multifactorial : Metabolic encephalopathy ESBL UTI Diagnosed on 03/14/2019 as an outpatient urine CS Has been on ertapenem since admission Will need to continue for a total of 14 days PICC line placed Remains generally weak and lethargic She has been accepted to [facility] Likely be discharged tomorrow and on Sunday Medically stable to be transferred to [facility] Remains stable and will be transferred to [facility] this afternoon COPD exacerbation, no sepsis Complicated UTI, no sepsis (history ESBL E. coli UTI on recent outpatient urine CS on 03/14/2019) ARF, clinical dehydration secondary to poor p.o. intake Neuropsychotropic/opioid medications for chronic pain Gabapentin dose has been decreased and doses of narcotics have been reduced Acute short of breath on 03/20/2019 Noted to have very high blood pressure with desaturation Chest x-ray showed CHF Will give 1 dose of Lasix 40 mg IV on 03/20/2019 Has some bibasilar crackles Will give additional dose of Lasix 40 mg IV on 03/21/2019 No more Lasix for now 03/22/2019 KATIE -creatinine elevated likely secondary to dehydration and use of diuretics Advised to drink more fluid Monitor creatinine-creatinine has been normalized Acute on chronic right hip pain Has severe osteoarthritis-not amenable to surgery Complains more pain in the hip Gabapentin will be continued with decreasing dose due to metabolic encephalopathy We will give no narcotics pain medication Right hip pain seems to be controlled with current medications hx chronic diastolic heart failure (EF 55 to 59%, TTE 2019), Patient clinically dry Noted to have more shortness of breath with CXR evidence of CHF She will receive 1 dose of intravenous Lasix of 40 mg Will receive second dose of 40 mg Lasix IV on 03/21/2019 No more intravenous Lasix Will continue with oral Lasix as before Renal function remains stable to restart outpatient dose of Lasix hx chronic respiratory failure secondary to COPD/pulmonary hypertension on home O2 ongoing tobacco abuse Noted to have shortness of breath this morning Continue with home O2 We will continue oxygen as she was taking before HTN, stable hx CVA/PVD as per records Acute on chronic anemia, hemoglobin drop from baseline Stool Hemoccult negative No overt source of bleeding for now Medical telemetry Doxycycline, nebs, prednisone course for COPD exacerbation Follow urine cultures, IV Ertapenem Monitor creatinine response IV fluids Appropriate to hold home neuropsychotropic/opiate medications until patient mentation at baseline Anemia work-up Trend H&H, transfuse PRBC if hemoglobin less than 8 and or for symptomatic anemia Hemoglobin remains stable at 8.8 PT OT eval DVT prophylaxis. Heparin subcu Full code Patient's daughter (Ms. Milagro Lopez, contact #[phone]) Discussed with the daughter Will be transferred to [facility] today /or tomorrow Total Time Total Time Spent Total Time Spent (In Minutes): 35 minutes Total Time Includes: Examination of the Patient, Discharge Planning, Medication Reconciliation and Communication With Other Providers Discharge Plan Discharge Items Patient Disposition: Transfer Snf Fac Reason For Visit: AMS Discharge Diagnosis: Metabolic encephalopathy secondary to ESBL UTI, COPD exacerbation, chronic diastolic heart failure, right hip pain due to osteoarthritis Condition on Discharge: Fair Activity: Resume your previous activity Activity Comment: Continue with PT and OT Non-emergency contact: Primary Care Provider Call non-emergency contact if: you have any medication questions and your symptoms worsen Follow-up/Referrals: Lena Quintanilla DO [Primary Care Provider] - 03/31/19 12:15 pm Diet: Heart Healthy Addtl Attending Provider Instructions: Please take precaution to avoid falls Try to take more fluid up to 1500 mL's per day Pending Studies at Discharge: No Stand-Alone Forms: My [facility] [employer] Skilled Items Patient informed of condition?: Yes DNR: No Discharge Level of Care: Skilled Communicable Disease: No Discharge Prognosis: Stable Lines: None Urinary Catheter: No Medications and DC Order Prescriptions: New doxycycline hyclate 100 mg Capsule 100 mg PO BID Qty: 10 RF: 0 hydrocodone-acetaminophen [[place]] 5-325 mg Tablet 1 tab PO Q8H PRN (Reason: pain) 5 Days Qty: 15 RF: 0 nicotine [Nicoderm CQ] 21 mg/24 hr Patch 24 Hour 21 mg transdermal DAILY 30 Days Qty: 30 RF: 0 gabapentin 300 mg Capsule 300 mg PO TID 30 Days Qty: 90 RF: 0 ertapenem 1 gram [place] sol[place] 1 gm IV DAILY Qty: 8 RF: 0 hydrocodone-acetaminophen 5-325 mg tablet 1 tab PO Q8H PRN (Reason: Pain) 5 Days Qty: 15 RF: 0 Lactinex 1 million cell tablet,chewable 1 tab PO TID Qty: 30 RF: 0 Continued atorvastatin 20 mg tablet 20 mg PO DAILY RF: 0 clopidogrel 75 mg tablet 75 mg PO DAILY RF: 0 aspirin 81 mg Tablet,Delayed Release (Dr/Ec) 81 mg PO DAILY RF: 0 ferrous sulfate 325 mg (65 mg iron) Tablet 325 mg PO BID RF: 0 nitroglycerin 0.4 mg tablet, sublingual 0.4 mg Sublingual DIRECTED PRN (Reason: Chest Pain) RF: 0 omeprazole 20 mg capsule,delayed release(DR/EC) 20 mg PO DAILY RF: 0 folic acid 1 mg Tablet 1 mg PO DAILY RF: 0 metoprolol succinate 25 mg tablet extended release 24 hr 12.5 mg PO DAILY RF: 0 albuterol sulfate [Ventolin HFA] 90 mcg/actuation Hfa Aerosol Inhaler 2 puff INHALATION QID PRN (Reason: Shortness Of Breath Or Wheezing) RF: 0 fluticasone propionate 50 mcg/actuation [place],Suspension 2 spray INTRANASAL DAILY PRN (Reason: Nasal Congestion) RF: 0 umeclidinium 62.5 mcg/actuation blister with device 1 inh Inhalation DAILY RF: 0 docusate sodium [Colace] 100 mg Capsule 100 mg PO BID RF: 0 potassium gluconate 550 mg (90 mg) Tablet 550 mg PO DAILY RF: 0 citalopram 20 mg tablet 20 mg PO DAILY RF: 0 trazodone 50 mg tablet 50 mg PO HS RF: 0 sertraline 25 mg tablet 25 mg PO DAILY RF: 0 furosemide 20 mg tablet 20 mg PO UD RF: 0 Discontinued lisinopril 2.5 mg tablet 2.5 mg PO DAILY Qty: 30 RF: 0 gabapentin 300 mg capsule 600 mg PO TID RF: 0 oxycodone [OxyContin] 20 mg tablet,oral only,ext.rel.12 hr 20 mg PO Q12 RF: 0 Discharge Orders: Discharge Order (Routine); Ordered 03/24/19 Ordered By: Naz Lozano Admission Data Admit Date/Time: 03/19/19 03:02 Attending Provider: Naz Lozano Admit Provider: Familia Huynh Primary Care Provider: Lena Quintanilla Other Providers: Familia Huynh [place] Other Interventions: Discharge Summary Assessment (RN) Last Done: 03/24/19 13:51 DC Date/Time DO NOT enter until pt leaves facility: 03/24/19 16:34
== END 2019-03-24 16:34 | DRG 190 ==
LOC: ED 23:39 → 2N 03-19 03:02

== ENCOUNTER 2019-05-09 12:11 | Inpatient (IN) ==
--- NOTE | 2019-05-09 13:19 | Emergency Department Note ---
History of Present Illness General Chief complaint: Shortness of Breath/Dyspnea Stated complaint: BREATHING DIFF Time Seen by Provider: 05/09/19 13:11 Source: patient and other Mode of arrival: ambulatory Limitations: no limitations History of Present Illness Maximum Pain Intensity: 6 Patient comes in as described above. She has a history of multiple medical problems including COPD. She wears oxygen at home typically 3 to 4 L. She has been feeling short of breath in the morning primarily. She is had a dry cough that occasionally is yellowish. No fever or chills. No foreign travel. She recently came home from [facility]. She looks well and feels well at present. Her symptoms are primarily in the morning. No nausea vomiting or diarrhea. No fall or trauma. No abdominal pain or chest pain. No blood or melena stool. No rash. Her throat feels congested at times. Home Medications Home Medications Medication Instructions Recorded Confirmed Type albuterol sulfate [Ventolin HFA] 2 puff INHALATION QID PRN 12/28/17 05/09/19 History aspirin 81 mg PO DAILY 12/28/17 05/09/19 History atorvastatin 20 mg PO DAILY 12/28/17 05/09/19 History clopidogrel 75 mg PO DAILY 12/28/17 05/09/19 History fluticasone propionate 2 spray INTRANASAL DAILY PRN 12/28/17 05/09/19 History folic acid 1 mg PO DAILY 12/28/17 05/09/19 History metoprolol succinate 12.5 mg PO BID 12/28/17 05/09/19 History nitroglycerin 0.4 mg SUBLINGUAL DIRECTED PRN 12/28/17 05/09/19 History omeprazole 20 mg PO DAILY 12/28/17 05/09/19 History umeclidinium 1 inh INHALATION DAILY 12/28/17 05/09/19 History docusate sodium [Colace] 100 mg PO BID 12/04/18 05/09/19 History potassium gluconate 550 mg PO DAILY 12/04/18 05/09/19 History citalopram 20 mg PO DAILY 03/19/19 05/09/19 History furosemide 20 mg PO DAILY 03/19/19 05/09/19 History trazodone 50 mg PO HS 03/19/19 05/09/19 History hydrocodone-acetaminophen 1 tab PO Q8H PRN 5 Days #15 tab 03/24/19 05/09/19 Rx gabapentin 300 mg PO TID 05/09/19 05/09/19 History Allergies Allergy/AdvReac Type Severity Reaction Status Date / Time Cipro Allergy Mild ITCHY Verified 05/29/16 16:32 ciprofloxacin Allergy Mild ITCHY Verified 05/09/19 15:44 Influenza Virus Vaccines Allergy Unknown HIVES ON Unverified 05/09/19 15:44 THE SITE Nitrate Analogues Allergy Unknown UNSURE; Verified 05/09/19 15:44 BUT PATIENT TAKES NITROSTAT PER ADMIT MED REC. nitrofurantoin Allergy Unknown UNSURE Verified 05/09/19 15:44 pneumococcal vaccine Allergy Unknown unk Verified 05/09/19 15:44 azithromycin Allergy Unknown Verified 05/09/19 15:44 Past Med/Surg History Medical History (Updated 05/09/19 @ 19:11 by Augustus Zamora MD) Avascular necrosis (Chronic) CAD (coronary artery disease) (Chronic) Cardiac cath 2010-nonobstructive disease Carotid stenosis (Chronic) Chronic hip pain Chronic respiratory failure with hypoxia (Chronic) CKD (chronic kidney disease), stage III COPD (chronic obstructive pulmonary disease) (Chronic) CVA (cerebral vascular accident) (Chronic) Depression (Chronic) Diastolic CHF (Chronic) Dyslipidemia (Chronic) Hip pain, right (Chronic) HTN (hypertension) Hypertension (Chronic) DAYNA (iron deficiency anemia) (Chronic) IPMN (intraductal papillary mucinous neoplasm) (Chronic) Lumbar back pain (Chronic) PAD (peripheral artery disease) (Chronic) S/P stenting of the right distal common and right external iliac arteries Pancreatic duct stricture (Chronic) S/P stent Recurrent pancreatitis (Chronic) Sleep apnea (Chronic) Tobacco use disorder (Chronic) Surgical History H/O ventral hernia repair (Chronic) History of appendectomy (Chronic) History of cholecystectomy (Chronic) History of hysterectomy (Chronic) Family History Mother Stroke Father Stroke Social History Preferred Language: [place] Communication Ability: Effective Visual Impairment: No Limitations Centrifuge Operator Required: No Beliefs That Will Affect Care: None marital status: / Current Living Situation: Alone Current Living Situation Comment: alone with home health Feels Safe at Home: Yes Smoking Status: Former smoker Tobacco Type: cigarettes ; Cigarettes Per Day: 20 ; Hx Alcohol Use: No (quit 1 month ago per pt) Hx Substance Use: No Review of Systems A total of 10 systems reviewed and were otherwise negative Physical Exam Vital Signs Vital Signs - 24 hr 05/09/19 12:16 05/09/19 12:19 05/09/19 12:20 Temperature 36.7 C Temperature Source Oral Pulse Rate 77 78 81 Pulse Rate [Apical] Pulse Rate from SpO2 Sensor 77 77 Respiratory Rate 12 12 22 Respiratory Effort / Characteristics Non-Labored Spontaneous Respiratory Depth Normal Respiratory Pattern Regular Blood Pressure 164/61 H 164/61 H Blood Pressure Mean 96 95 Pulse Oximetry 96 95 92 Oxygen Delivery Method Nasal Cannula Nasal Cannula Room Air Oxygen Flow Rate 2 2 2 Sepsis Recent Fever Within 48 Hours No Sepsis New/Unexplained Change in Mental Status No Sepsis Action Taken by Nursing No Action Required Oxygen Flow Rate - Titration 2 Pulse Oximetry Post Tiitration 96 05/09/19 12:28 05/09/19 12:30 05/09/19 13:06 Temperature Temperature Source Pulse Rate 80 83 86 Pulse Rate [Apical] Pulse Rate from SpO2 Sensor 80 84 Respiratory Rate 23 13 23 Respiratory Effort / Characteristics Respiratory Depth Respiratory Pattern Blood Pressure 175/75 H 185/98 H 195/86 H Blood Pressure Mean 116 118 122 Pulse Oximetry 94 93 97 Oxygen Delivery Method Nasal Cannula Nasal Cannula Nasal Cannula Oxygen Flow Rate 2 2 3 Sepsis Recent Fever Within 48 Hours Sepsis New/Unexplained Change in Mental Status Sepsis Action Taken by Nursing Oxygen Flow Rate - Titration Pulse Oximetry Post Tiitration 05/09/19 13:13 05/09/19 13:30 05/09/19 13:40 Temperature Temperature Source Pulse Rate 82 78 Pulse Rate [Apical] Pulse Rate from SpO2 Sensor 77 78 Respiratory Rate 17 14 Respiratory Effort / Characteristics Respiratory Depth Respiratory Pattern Blood Pressure 195/86 H 168/62 H Blood Pressure Mean 146 98 Pulse Oximetry 98 95 95 Oxygen Delivery Method Nasal Cannula Nasal Cannula Nasal Cannula Oxygen Flow Rate 3 3 3 Sepsis Recent Fever Within 48 Hours Sepsis New/Unexplained Change in Mental Status Sepsis Action Taken by Nursing Oxygen Flow Rate - Titration Pulse Oximetry Post Tiitration 05/09/19 14:00 05/09/19 14:01 05/09/19 14:30 Temperature Temperature Source Pulse Rate Pulse Rate [Apical] Pulse Rate from SpO2 Sensor 79 78 79 Respiratory Rate Respiratory Effort / Characteristics Respiratory Depth Respiratory Pattern Blood Pressure 193/81 H 180/75 H Blood Pressure Mean 119 112 Pulse Oximetry 95 95 95 Oxygen Delivery Method Nasal Cannula Nasal Cannula Nasal Cannula Oxygen Flow Rate 4 4 4 Sepsis Recent Fever Within 48 Hours Sepsis New/Unexplained Change in Mental Status Sepsis Action Taken by Nursing Oxygen Flow Rate - Titration Pulse Oximetry Post Tiitration 05/09/19 14:31 05/09/19 14:39 05/09/19 15:00 Temperature Temperature Source Pulse Rate Pulse Rate [Apical] 80 Pulse Rate from SpO2 Sensor 80 84 Respiratory Rate 18 Respiratory Effort / Characteristics Non-Labored Spontaneous Respiratory Depth Respiratory Pattern Blood Pressure Blood Pressure Mean Pulse Oximetry 94 95 95 Oxygen Delivery Method Nasal Cannula Nasal Cannula Oxygen Flow Rate 3 4 Sepsis Recent Fever Within 48 Hours Sepsis New/Unexplained Change in Mental Status Sepsis Action Taken by Nursing Oxygen Flow Rate - Titration Pulse Oximetry Post Tiitration 05/09/19 15:01 Temperature Temperature Source Pulse Rate Pulse Rate [Apical] Pulse Rate from SpO2 Sensor 84 Respiratory Rate Respiratory Effort / Characteristics Respiratory Depth Respiratory Pattern Blood Pressure 184/99 H Blood Pressure Mean 111 Pulse Oximetry 94 Oxygen Delivery Method Nasal Cannula Oxygen Flow Rate 4 Sepsis Recent Fever Within 48 Hours Sepsis New/Unexplained Change in Mental Status Sepsis Action Taken by Nursing Oxygen Flow Rate - Titration Pulse Oximetry Post Tiitration General: Well developed well nourished alert female who appears in no acute distress, breathing comfortably on room air. Normal speech wearing supplemental oxygen HEENT: Normal cephalic atraumatic. Pupils are equal round and reactive to lig ht. Extraocular movements are intact. Oropharynx is pink with moist mucous membranes. No swelling of the mouth lips or tongue. Neck: Supple with a midline trachea. No meningeal signs or stiffness, no JVD or bruits. No Stridor. Chest: Clear to auscultation bilaterally. No wheezes or rhonchi. No increased work of breathing. Heart: Regular rate and rhythm without murmurs or gallops. Abdomen: Soft nontender, nondistended without rebound guarding or rigidity. Extremities: No cyanosis clubbing. Trace pedal edema. No calf tenderness or assymetry. The right leg is chronically shorter than the left Spine/Back. Non tender to palpation. No CVA tenderness Skin: Good turgor without rashes. Neurologic exam: Cranial nerves two through 12 are intact. Motor and sensation are intact and symmetrical throughout.. Course Administered Medications Nicotine (Nicoderm Cq) 21 mg TD QAM AKSHAT Stop: 06/08/19 16:59 Last Admin: 05/09/19 17:04 Dose: 21 mg Documented by: [id number] Discontinued Medications Hydrocodone Bitart/Acetaminophen ([place] 5/325) 1 tab PO ONE ONE Stop: 05/09/19 15:26 Last Admin: 05/09/19 15:34 Dose: 1 tab Documented by: [id number] Albuterol (Ventolin 0.083% 2.5mg/3ml) 2.5 mg NEB NOW STA Stop: 05/09/19 14:27 Last Admin: 05/09/19 14:37 Dose: 2.5 mg Documented by: [id number] Furosemide (Lasix) 20 mg IV NOW STA Stop: 05/09/19 14:27 Last Admin: 05/09/19 14:51 Dose: 20 mg Documented by: [id number] Furosemide 20 mg/ Syringe 2 mls @ 4 mls/min IV NOW STA Stop: 05/09/19 16:20 Last Admin: 05/09/19 17:03 Dose: 4 mls/min Documented by: [id number] Potassium Chloride (Klor-Con M20) 40 meq PO NOW STA Stop: 05/09/19 14:27 Last Admin: 05/09/19 14:58 Dose: Not Given Documented by: [id number] Potassium Chloride (Lory Ciel Elix) 40 meq PO NOW STA Stop: 05/09/19 15:01 Last Admin: 05/09/19 15:36 Dose: 40 meq Documented by: [id number] Potassium Chloride (Klor-Con M20) 40 meq PO ONE ONE Stop: 05/09/19 17:01 Last Admin: 05/09/19 17:03 Dose: 40 meq Documented by: [id number] Medical Decision Making Differential Diagnosis Pnuemonia, Influenza, broncitis, copd, sepsis, cardiac disease, electrolyte or metabolic Medical Records Attestation: I reviewed the patient's medical records. Home Medications Current Medication List: was personally reviewed by me Laboratory Data Attestation: I reviewed the patient's lab results. Result diagrams: 05/09/19 13:42 05/09/19 13:42 Lab Results 05/09/19 05/09/19 05/09/19 Range/Units 13:42 13:42 13:42 WBC 5.66 (4.8-10.8) K/uL RBC 2.93 L (4.2-5.4) M/uL Hgb 7.6 L (12.0-16.0) g/dL Hct 25.2 L (37-47) % MCV 86.0 (80-100) fL MCH 25.9 (25-34) pg MCHC 30.2 L (32-36) g/dL RDW Std Deviation 50.9 H (36.4-46.3) fL RDW Coeff of Sriram 16.1 H (11.5-14.5) % Plt Count 276 (130-400) K/uL MPV 8.8 (7.4-10.4) fL Immature Gran % (Auto) 0.2 % Neut % (Auto) 74.2 % Lymph % (Auto) 13.4 % [place] % (Auto) 8.3 % Eos % (Auto) 3.0 % Baso % (Auto) 0.9 % Immature Gran # (Auto) 0.01 (0.00-0.02) K/uL Neut # (Auto) 4.20 (1.4-6.5) K/uL Lymph # (Auto) 0.76 L (1.2-3.4) K/uL [place] # (Auto) 0.47 (0.11-0.59) K/uL Eos # (Auto) 0.17 (0-0.5) K/uL Baso # (Auto) 0.05 (0-0.2) K/uL Polychromasia 1+ PT 11.0 (9.0-12.0) Seconds INR 1.0 (0.9-1.1) APTT 23.2 (21.0-31.0) Seconds PTT Ratio 0.8 Sodium 138 (136-145) mmol/L Potassium 2.8 L (3.5-5.1) mmol/L Chloride 102 (98-107) mmol/L Carbon Dioxide 29 (21-32) mmol/L Anion Gap 7.0 (3-11) BUN 19 H (7-18) mg/dl Creatinine 1.20 (0.6-1.2) mg/dl Est Cr Clr Drug Dosing 30.5 ml/min Est GFR ( Amer) 50.8 Est GFR (Non-Af Amer) 43.9 BUN/Creatinine Ratio 15.8 (10-20) Glucose 110 H (70-99) mg/dl Calcium 8.1 L (8.5-10.1) mg/dl Magnesium 2.1 (1.8-2.4) mg/dl Total Bilirubin 0.5 (0.2-1) mg/dl AST 15 (15-37) U/L ALT 13 (12-78) U/L Alkaline Phosphatase 140 H (45-117) U/L Troponin I 0.039 (0-0.045) ng/ml Total Protein 6.6 (6.4-8.2) gm/dl Albumin 2.5 L (3.4-5.0) gm/dl Globulin 4.1 H (2.5-4.0) gm/dl Albumin/Globulin Ratio 0.6 L (0.9-2) Lipase 140 (73-393) U/L Influenza Type A (PCR) (Neg) Influenza Type B (PCR) (Neg) Blood Type Antibody Screen Crossmatch 05/09/19 05/09/19 Range/Units 13:42 14:39 WBC (4.8-10.8) K/uL RBC (4.2-5.4) M/uL Hgb (12.0-16.0) g/dL Hct (37-47) % MCV (80-100) fL MCH (25-34) pg MCHC (32-36) g/dL RDW Std Deviation (36.4-46.3) fL RDW Coeff of Sriram (11.5-14.5) % Plt Count (130-400) K/uL MPV (7.4-10.4) fL Immature Gran % (Auto) % Neut % (Auto) % Lymph % (Auto) % [place] % (Auto) % Eos % (Auto) % Baso % (Auto) % Immature Gran # (Auto) (0.00-0.02) K/uL Neut # (Auto) (1.4-6.5) K/uL Lymph # (Auto) (1.2-3.4) K/uL [place] # (Auto) (0.11-0.59) K/uL Eos # (Auto) (0-0.5) K/uL Baso # (Auto) (0-0.2) K/uL Polychromasia PT (9.0-12.0) Seconds INR (0.9-1.1) APTT (21.0-31.0) Seconds PTT Ratio Sodium (136-145) mmol/L Potassium (3.5-5.1) mmol/L Chloride (98-107) mmol/L Carbon Dioxide (21-32) mmol/L Anion Gap (3-11) BUN (7-18) mg/dl Creatinine (0.6-1.2) mg/dl Est Cr Clr Drug Dosing ml/min Est GFR ( Amer) Est GFR (Non-Af Amer) BUN/Creatinine Ratio (10-20) Glucose (70-99) mg/dl Calcium (8.5-10.1) mg/dl Magnesium (1.8-2.4) mg/dl Total Bilirubin (0.2-1) mg/dl AST (15-37) U/L ALT (12-78) U/L Alkaline Phosphatase (45-117) U/L Troponin I (0-0.045) ng/ml Total Protein (6.4-8.2) gm/dl Albumin (3.4-5.0) gm/dl Globulin (2.5-4.0) gm/dl Albumin/Globulin Ratio (0.9-2) Lipase (73-393) U/L Influenza Type A (PCR) Neg for Influ A (Neg) Influenza Type B (PCR) Neg for Influ B (Neg) Blood Type A Positive Antibody Screen NEGATIVE Crossmatch See Detail Imaging Data Radiologist's Impression: Chest x-ray: Congestive heart failure changes ECG Data Attestation: I personally reviewed and interpreted this ECG as follows: Indication: + SOB/dyspnea Rate (beats per minute): 82 Rhythm: + normal sinus ECG Intervals/blocks: + Normal QRS, + Prolonged QT and + Normal WA ECG [place]: + Normal ECG ST segments: + repolarization abnormalities ECG Findings: + LVH Comparison ECG Date: from (03/20/19) Change: the following changes noted (PVCs are now present) Blood Pressure Blood Pressure Findings: Elevated blood pressure Blood Pressure Disposition: further management by hospitalist [facility] Narrative This patient comes in as described above. She has been feeling short of breath in the morning. She has a multiple medical problems. Her main concern was her blood pressure was running high as well. I think this is situational. Certainly in the setting of infection I told her I rather have her high than low. This may be something needs to be monitored long-term but there is no short-term reason to lower it and could in fact cause more harm. She has had no fever. IV access was established blood work was obtained. I did a chest x-ray, EKG, and multiple blood testing. She was reassessed frequently. Her chest x- ray shows congestive heart failure. Hemoglobin is also low in the 7.6 range and she will likely need a transfusion. she tends to run low but this is even lower. I do think that she needs diuresis. She was given albuterol neb as well as Lasix 20 mg IV here. She is been typed and screened. She will be a dmitted/observed. I have consulted the hospitalist to see her in the ER for these measures. Impression & Plan CHF (congestive heart failure), Anemia, COPD (chronic obstructive pulmonary disease), SOB (shortness of breath) Discharge Plan Visit Data *Final* Discharge Date/Time: 05/09/19 15:46 Chief Complaint: Shortness of Breath/Dyspnea Stated Complaint: BREATHING DIFF ED Provider: Augustus Zamora Discharge Problem: CHF (congestive heart failure), Anemia, COPD (chronic obstructive pulmonary disease), SOB (shortness of breath) Patient Disposition: Admitted As Inpatient Discharge Instructions Interventions: ED Discharge Assessment Last Done: 05/09/19 15:46 Discharge Problem: CHF (congestive heart failure) Qualifiers: Heart failure type: biventricular Qualified Code(s): I50.82 - Biventricular heart failure Anemia Qualifiers: Anemia type: unspecified type Qualified Code(s): D64.9 - Anemia, unspecified COPD (chronic obstructive pulmonary disease) Qualifiers: COPD type: unspecified COPD Qualified Code(s): J44.9 - Chronic obstructive pulm onary disease, unspecified
[2019-05-09 13:55] LABS: Basophils # (auto) 0.05 K/uL (0-0.2); Basophils % (auto) 0.9 %; Eosinophils # (auto) 0.17 K/uL (0-0.5); Hematocrit (blood only) 25.2 % (37-47); Hemoglobin 7.6 g/dL (12.0-16.0); Immature Granulocytes # (auto) 0.01 K/uL (0.00-0.02); Immature Granulocytes % (auto) 0.2 %; Lymphocytes # (auto) 0.76 K/uL (1.2-3.4); Lymphocytes % (auto) 13.4 %; Mean Corpuscular Hemoglobin 25.9 pg (25-34); Mean Corpuscular Hgb Conc 30.2 g/dL (32-36); Mean Platelet Volume 8.8 fL (7.4-10.4); Monocytes # (auto) 0.47 K/uL (0.11-0.59); Monocytes % (auto) 8.3 %; Neutrophils % (auto) 74.2 %; Platelet Count 276 K/uL (130-400); RDW Coefficient of Variation 16.1 % (11.5-14.5); RDW Standard Deviation 50.9 fL (36.4-46.3); Red Blood Count 2.93 M/uL (4.2-5.4); White Blood Count 5.66 K/uL (4.8-10.8)
--- NOTE | 2019-05-09 13:58 | XRay Report ---
XR chest 1V portable CLINICAL HISTORY: Chest Pain dyspnea COMPARISON STUDY: 03/20/2019 FINDINGS: Interval increase in cardiac size. Findings consistent with developing and/or progressive c omponents of congestive heart failure. Small left and to a lesser extent minimal right effusion. IMPRESSION: Congestive heart failure. ACT 112: Negative or not required by law. The above report was generated using voice recognition software. It may contain grammatical, syntax or spelling errors. Electronically signed by: Sanjay Cid M.D. 05/09/2019 1:56 PM
[2019-05-09 14:08] LABS: Partial Thromboplastin Ratio 0.8; Partial Thromboplastin Time 23.2 Seconds (21.0-31.0)
[2019-05-09 14:10] LABS: Albumin Level 2.5 gm/dl (3.4-5.0); BUN Creatinine Ratio 15.8 (10-20); Calcium 8.1 mg/dl (8.5-10.1); Creatinine Clr Calc Pharmacy 30.5 ml/min; Est GFR (African American) 50.8; Est GFR (Non-African American) 43.9; Potassium 2.8 mmol/L (3.5-5.1)
[2019-05-09 14:12] LABS: Polychromasia 1+
[2019-05-09 14:14] LABS: Albumin Globulin Ratio 0.6 (0.9-2); Bilirubin,Total 0.5 mg/dl (0.2-1); Globulin 4.1 gm/dl (2.5-4.0); Total Protein 6.6 gm/dl (6.4-8.2); Troponin I 0.039 ng/ml (0-0.045)
[2019-05-09] MEDS ORDERED: FUROSEMIDE 40 MG/4 ML VIAL IV STA (14:26)
[2019-05-09] MEDS ORDERED: ALBUTEROL 0.083% NEBU SOLN 3 ML VIAL NEB STA (14:26)
[2019-05-09 14:30] LABS: Influenza A virus by PCR Neg for Influ A (Neg); Influenza B virus by PCR Neg for Influ B (Neg)
[2019-05-09 14:46] LABS: Magnesium 2.1 mg/dl (1.8-2.4)
[2019-05-09] MEDS: POTASSIUM CHLORIDE 20 MEQ TABCR PO STA ×2 (14:51→14:58)
[2019-05-09] MEDS ORDERED: POTASSIUM CHLORIDE 20 MEQ/15 ML UDC PO STA (15:00)
[2019-05-09] MEDS ORDERED: HYDROCODONE/ACETAMOPHEN 5/325MG TAB PO ONE (15:25)
--- NOTE | 2019-05-09 15:54 | History & Physical Report ---
Date of Service May 09, 2019 Assessment & Plan (1) Acute on chronic diastolic (congestive) heart failure: Pt is 74 y/o F with PMH COPD on 3-4 L oxygen, nonobstructive CAD on cath in 2010, PAD, CVA, chronic diastolic CHF, HTN, CKD III, chronic hip pain, tobacco use presented to ER with complaint of shortness of breath x couple of days, noted BLE edema. Slight cough productive white couple of days. In ER afebrile, P: 81, R: 22, BP; 164/61, 92-95% on 3L oxygen via NC. No leukocytosis, Hgb: 7.6 (baseline~8), Troponin: 0.039. Negative influenza swab CXR: consistent with fluid overload -In ER given albuterol, Lasix 20mg IV -Monitor Is & O's, daily weights, low sodium diet -Update echo -Give additional 20mg Lasix IV now -Lasix 40mg IV daily -CXR in am -Monitor BMP (2) COPD (chronic obstructive pulmonary disease): (3) Chronic respiratory failure with hypoxia: On Chronic 3-4L oxygen In ER sating well with sats in 90's% on chronic 3-4L oxygen. Diffuse wheezing -Duonebs -Hold home meds as doing duonebs as above -Continue chronic oxygen (4) HTN (hypertension): In ER BP elevated History labile blood pressures in the past. In ER patient complaining of chronic hip pain and she had missed her chronic hydrocodone -Dose chronic pain management and closely monitor BP -May need to add additional agent -Continue metoprolol (5) Hypokalemia: K: 2.8 -In ER given KCl 40meq po -Replace with additional oral KCl -Monitor BMP (6) DAYNA (iron deficiency anemia): Hgb: 7.6 (baseline~8) -Type and cross PRBC and hold for now as pt fluid overloaded (7) CKD (chronic kidney disease), stage III: Cr: 1.2. Baseline Cr: 1-1.2 -Monitor renal functions -Avoid nephrotoxic agents when possible (8) CVA (cerebral vascular accident): -Continue Plavix, aspirin, atorvastatin (9) CAD (coronary artery disease): No chest pain -Continue metoprolol, Plavix, aspirin, atorvastatin (10) Chronic hip pain: -Continue hydrocodone, gabapentin (11) Depression: -Continue home meds (12) Tobacco use disorder: Patient with recently attempted smoking cessation -Continue nicotine patch DVT Prophylaxis -SCDs Full Code as per discussion with pt Follows with Dr Lena Quintanilla for routine care Pt was seen and care coordinated with Dr Delgado. See addendum History of Present Illness Chief Complaint: SOB Primary Care Provider: Lena Quintanilla, Pt is 74 y/o F with PMH COPD on 3-4 L oxygen, nonobstructive CAD on cath in 2010, PAD, CVA, chronic diastolic CHF, HTN, CKD III, chronic hip pain, tobacco use presented to ER with complaint of shortness of breath x couple of days. Patient states noticed increased shortness of breath over the last couple of days and is short of breath at rest. Normally sleeps on an incline and does not think any increased orthopnea. Reports has been noticing bilateral ankle edema over the past week or so. Denies any chest pain. Reports has had a cough sometimes productive of white-colored sputum. Reports has attempted to stop smoking has been using nicotine patch recently. Recent hospitalization at [facility] 03/19/19 - 03/24 20 for confusion, ESBL UTI and was discharged to center [place] for continued ertapenem IV. Was discharged home on 05/02/2019. Denies fever/chills, diaphoresis, N/V/D/C, VELEZ, dizziness, syncope, vision changes, neck pain, CP, palpitations, sore throat, choking, otalgia, rhinorrhea, abdominal pain, paresthesias, weakness, extremity weakness, rashes, urinary symptoms, recent travel, ill contacts. History echo 10/2017: EF: 55-59%, grade 1 diastolic dysfunction, mild mitral regurgitation, mild tricuspid regurgitation Allergies Allergy/AdvReac Type Severity Reaction Status Date / Time Cipro Allergy Mild ITCHY Verified 05/29/16 16:32 ciprofloxacin Allergy Mild ITCHY Verified 05/09/19 15:44 Influenza Virus Vaccines Allergy Unknown HIVES ON Unverified 05/09/19 15:44 THE SITE Nitrate Analogues Allergy Unknown UNSURE; Verified 05/09/19 15:44 BUT PATIENT TAKES NITROSTAT PER ADMIT MED REC. nitrofurantoin Allergy Unknown UNSURE Verified 05/09/19 15:44 pneumococcal vaccine Allergy Unknown unk Verified 05/09/19 15:44 azithromycin Allergy Unknown Verified 05/09/19 15:44 Home Medications Home Medications Medication Instructions Recorded Confirmed Type albuterol sulfate [Ventolin HFA] 2 puff INHALATION QID PRN 12/28/17 05/09/19 History aspirin 81 mg PO DAILY 12/28/17 05/09/19 History atorvastatin 20 mg PO DAILY 12/28/17 05/09/19 History clopidogrel 75 mg PO DAILY 12/28/17 05/09/19 History fluticasone propionate 2 spray INTRANASAL DAILY PRN 12/28/17 05/09/19 History folic acid 1 mg PO DAILY 12/28/17 05/09/19 History metoprolol succinate 12.5 mg PO BID 12/28/17 05/09/19 History nitroglycerin 0.4 mg SUBLINGUAL DIRECTED PRN 12/28/17 05/09/19 History omeprazole 20 mg PO DAILY 12/28/17 05/09/19 History umeclidinium 1 inh INHALATION DAILY 12/28/17 05/09/19 History potassium gluconate 550 mg PO DAILY 12/04/18 05/09/19 History citalopram 20 mg PO DAILY 03/19/19 05/09/19 History trazodone 50 mg PO HS 03/19/19 05/09/19 History hydrocodone-acetaminophen 1 tab PO Q8H PRN 5 Days #15 tab 03/24/19 05/09/19 Rx gabapentin 300 mg PO TID 05/09/19 05/09/19 History furosemide [Lasix] 40 mg PO DAILY #30 tab 05/13/19 Rx sennosides-docusate sodium 1 tabcap PO DAILY PRN #30 tab 05/13/19 Rx [Senokot-S] Past Med/Surg History Medical History Avascular necrosis (Chronic) CAD (coronary artery disease) (Chronic) Cardiac cath 2010-nonobstructive disease Carotid stenosis (Chronic) Chronic hip pain Chronic respiratory failure with hypoxia (Chronic) CKD (chronic kidney disease), stage III COPD (chronic obstructive pulmonary disease) (Chronic) CVA (cerebral vascular accident) (Chronic) Depression (Chronic) Diastolic CHF (Chronic) Dyslipidemia (Chronic) Hip pain, right (Chronic) HTN (hypertension) Hypertension (Chronic) DAYNA (iron deficiency anemia) (Chronic) IPMN (intraductal papillary mucinous neoplasm) (Chronic) Lumbar back pain (Chronic) PAD (peripheral artery disease) (Chronic) S/P stenting of the right distal common and right external iliac arteries Pancreatic duct stricture (Chronic) S/P stent Recurrent pancreatitis (Chronic) Sleep apnea (Chronic) Tobacco use disorder (Chronic) Surgical History H/O ventral hernia repair (Chronic) History of appendectomy (Chronic) History of cholecystectomy (Chronic) History of hysterectomy (Chronic) Family History Mother Stroke Father Stroke Social History Preferred Language: [place] Communication Ability: Effective Visual Impairment: No Limitations Copy Camera Operator Required: No Beliefs That Will Affect Care: None marital status: / Current Living Situation: Alone Current Living Situation Comment: caregivers 9-5 pm daily x 40 hours/week Other Information That Helps Us Care for You: No Feels Safe at Home: Yes Safety Concerns: Feels Safe At This Time Smoking Status: Former smoker Tobacco Type: cigarettes ; Cigarettes Per Day: 20 ; Do You Dip or Chew Tobacco: No ; Second Hand Exposure: No ; Tobacco Cessation Education Requested by Patient: No Hx Alcohol Use: Yes Alcohol type: wine Hx Substance Use: No Review of Systems Review of Systems: All systems reviewed & are unremarkable except as noted in HPI & below Physical Exam Physical Exam: General: no distress on 3L oxygen, Thin Head: normocephalic, atraumatic Eyes: PERRL, EOM's intact, conjunctiva non-injected, anicteric ENT: normal inspection external ears, nose, mucous membranes moist Neck: supple, trachea midline Lungs: no respiratory distress on current 3L oxygen via NC with sat 95%, RR: 18, +diffuse wheezing, rales at bases CV: RRR, no murmur, no JVD, 1+ pretibial edema Abd: normal BS, soft, non-tender Ext: no cyanosis, no calf tenderness Neuro: A&O x 3, no focal deficits noted, normal affect Skin: warm, dry Results & Data Vital Signs (Past 12 Hours) Vital Signs Temp Pulse Pulse Resp BP Pulse Ox 05/09/19 15:30 90 17 202/97 H 97 05/09/19 15:01 184/99 H 94 05/09/19 15:00 95 05/09/19 14:39 80 18 95 05/09/19 14:31 94 05/09/19 14:30 180/75 H 95 05/09/19 14:01 95 05/09/19 14:00 193/81 H 95 05/09/19 13:40 95 05/09/19 13:30 78 14 168/62 H 95 05/09/19 13:13 82 17 195/86 H 98 05/09/19 13:06 86 23 195/86 H 97 05/09/19 12:30 83 13 185/98 H 93 05/09/19 12:28 80 23 175/75 H 94 05/09/19 12:20 36.7 C 81 22 164/61 H 92 05/09/19 12:19 78 12 95 05/09/19 12:16 77 12 164/61 H 96 Laboratory Results Short CBC 05/09/19 05/09/19 Range/Units 13:42 13:42 WBC 5.66 (4.8-10.8) K/uL Hgb 7.6 L (12.0-16.0) g/dL Hct 25.2 L (37-47) % Plt Count 276 (130-400) K/uL Creatinine 1.20 (0.6-1.2) mg/dl BMP 05/09/19 13:42 Sodium 138 Potassium 2.8 L Chloride 102 Carbon Dioxide 29 BUN 19 H Creatinine 1.20 Glucose 110 H Calcium 8.1 L Cardiac Enzymes 05/09/19 Range/Units 13:42 Troponin I 0.039 (0-0.045) ng/ml Liver Function 05/09/19 Range/Units 13:42 Total Bilirubin 0.5 (0.2-1) mg/dl AST 15 (15-37) U/L ALT 13 (12-78) U/L Alkaline Phosphatase 140 H (45-117) U/L Albumin 2.5 L (3.4-5.0) gm/dl Diagnostic Findings CXR: IMPRESSION: Congestive heart failure. Code Status & VTE Plan VTE Prophylaxis Plan VTE Prophylaxis will be ordered: Yes Supervising Physician Co-Signing Physician Notes Pt was seen an examined. Agreed with Janie LEE exam, assessment and plan. 74 y/o F with PMH COPD on 3-4 L oxygen, nonobstructive CAD on cath in 2010, PAD, C VA, chronic diastolic CHF, HTN, CKD III, chronic hip pain, tobacco use presented to ER with worsening shortness of breath associated with lower extremities edema. CXR showed congestive heart failure. Received lasix 20mg IV in the ER. Will give an additional lasix 20mg later. Monitor I/O. Will check resting ECHO. Continue oxygen supplement. Monitor electrolytes while gettng IV lasix. Will repeat CXR in am. MD Danny
[2019-05-09] MEDS ORDERED: FLUTICASONE PROPIONATE NA SPR 16 GM BTL NAE PRN (16:11)
[2019-05-09] MEDS ORDERED: FUROSEMIDE 20 MG in SYRINGE 0 ML IV STA (16:19)
[2019-05-09] MEDS ORDERED: ACETAMINOPHEN 325 MG TAB PO PRN (16:20)
[2019-05-09] MEDS ORDERED: SODIUM CHLORIDE 0.9% 250 ML IV PRN (16:34)
[2019-05-09] MEDS ORDERED: NITROGLYCERIN SL 0.4 MG/TAB TAB SL PRN (16:45)
--- NOTE | 2019-05-09 16:49 | Electrocardiogram Report ---
Test Reason : Blood Pressure : / mmHG Vent. Rate : 082 BPM Atrial Rate : 082 BPM P-R Int : 158 ms QRS Dur : 082 ms QT Int : 422 ms P-R-T Axes : 071 078 074 degrees QTc Int : 493 ms Sinus rhythm with occasional Premature ventricular complexes Possible Left atrial enlargement Left ventricular hypertrophy with repolarization abnormality Prolonged QT Abnormal ECG When compared with ECG of 20-MAR-2019 14:42, Premature ventricular complexes are now Present Nonspecific T wave abnormality now evident in Lateral leads Confirmed by Kaden López ([id number]) on 05/09/2019 4:49:20 PM Referred By: REFERRED SELF Confirmed By:Kaden López
[2019-05-09] MEDS ORDERED: FUROSEMIDE 40 MG/4 ML VIAL IV ONE (17:00)
[2019-05-09] MEDS ORDERED: POTASSIUM CHLORIDE 20 MEQ TABCR PO ONE (17:00)
[2019-05-09] MEDS: NICOTINE 21 MG/24 HR TDSY TD SCH (17:04)
[2019-05-09] MEDS: ALBUT/IPRATROP 3MG/0.5MG NEB 3 ML VIAL NEB SCH (19:20)
[2019-05-09 19:59] LABS: BUN Creatinine Ratio 12.7 (10-20); Calcium 7.9 mg/dl (8.5-10.1); Creatinine Clr Calc Pharmacy 27.6 ml/min; Est GFR (African American) 41.1; Est GFR (Non-African American) 35.5; Potassium 3.5 mmol/L (3.5-5.1)
[2019-05-09] MEDS: DOCUSATE SODIUM 100 MG CAP PO SCH (19:59)
[2019-05-09] MEDS: GABAPENTIN 300 MG CAP PO SCH (19:59)
[2019-05-09] MEDS: FERROUS SULFATE 325 MG TAB PO SCH (19:59)
[2019-05-09] MEDS: TRAZODONE HCL 50 MG TAB PO SCH (20:00)
[2019-05-09 20:03] LABS: Troponin I 0.035 ng/ml (0-0.045)
[2019-05-09] MEDS ORDERED: METOPROLOL SUCC 25MG EXT REL TAB PO SCH (21:00)
[2019-05-09] MEDS: HYDROCODONE/ACETAMOPHEN 5/325MG TAB PO PRN (22:48)
[2019-05-10] MEDS ORDERED: MAGNESIUM SULFATE / D5W 1 GM/100 ML BAG IV ONE (02:45)
[2019-05-10] MEDS ORDERED: POTASSIUM CHLORIDE 10 MEQ TABCR PO ONE (02:45)
[2019-05-10 03:09] LABS: Basophils # (auto) 0.06 K/uL (0-0.2); Basophils % (auto) 1.2 %; Eosinophils # (auto) 0.29 K/uL (0-0.5); Eosinophils % (auto) 5.7 %; Hematocrit (blood only) 26.1 % (37-47); Hemoglobin 7.8 g/dL (12.0-16.0); Immature Granulocytes # (auto) 0.01 K/uL (0.00-0.02); Immature Granulocytes % (auto) 0.2 %; Lymphocytes # (auto) 1.21 K/uL (1.2-3.4); Lymphocytes % (auto) 23.9 %; Mean Corpuscular Hemoglobin 25.7 pg (25-34); Mean Corpuscular Hgb Conc 29.9 g/dL (32-36); Mean Corpuscular Volume 86.1 fL (80-100); Mean Platelet Volume 8.7 fL (7.4-10.4); Monocytes # (auto) 0.57 K/uL (0.11-0.59); Monocytes % (auto) 11.2 %; Neutrophils # (auto) 2.93 K/uL (1.4-6.5); Neutrophils % (auto) 57.8 %; Platelet Count 268 K/uL (130-400); RDW Coefficient of Variation 16.3 % (11.5-14.5); RDW Standard Deviation 51.5 fL (36.4-46.3); Red Blood Count 3.03 M/uL (4.2-5.4); White Blood Count 5.07 K/uL (4.8-10.8)
[2019-05-10 03:28] LABS: BUN Creatinine Ratio 14.9 (10-20); Calcium 8.1 mg/dl (8.5-10.1); Creatinine Clr Calc Pharmacy 29.4 ml/min; Est GFR (African American) 44.5; Est GFR (Non-African American) 38.4; Magnesium 2.2 mg/dl (1.8-2.4); Potassium 3.6 mmol/L (3.5-5.1)
[2019-05-10 03:29] LABS: Hypochromasia Present; Polychromasia 1+
[2019-05-10] MEDS: METOPROLOL SUCC 25MG EXT REL TAB PO SCH ×2 (03:44→20:43)
[2019-05-10] MEDS: HYDROCODONE/ACETAMOPHEN 5/325MG TAB PO PRN (06:47)
[2019-05-10] MEDS: ALBUT/IPRATROP 3MG/0.5MG NEB 3 ML VIAL NEB SCH ×4 (07:13→18:56)
--- NOTE | 2019-05-10 07:48 | XRay Report ---
XR chest 1V portable CLINICAL HISTORY: CHF dyspnea COMPARISON STUDY: 05/09/2019 FINDINGS: Moderate stable cardiomegaly. Slightly progressive components of congestive heart failure. Small bilateral pleural effusions slightly increased in volume. IMPRESSION: Mildly progressive congestive heart failure ACT 112: Negative or not required by law. The above report was generated using voice recognition software. It may contain grammatical, syntax or spelling errors. Electronically signed by: Sanjay Cid M.D. 05/10/2019 7:47 AM
[2019-05-10] MEDS: ATORVASTATIN 20 MG TAB PO SCH (08:14)
[2019-05-10] MEDS: ASPIRIN 81 MG ECTAB PO SCH (08:14)
[2019-05-10] MEDS: FERROUS SULFATE 325 MG TAB PO SCH ×2 (08:15→20:43)
[2019-05-10] MEDS: NICOTINE 21 MG/24 HR TDSY TD SCH (08:15)
[2019-05-10] MEDS: GABAPENTIN 300 MG CAP PO SCH ×3 (08:15→20:43)
[2019-05-10] MEDS: PANTOprazole 40 MG TAB PO SCH (08:15)
[2019-05-10] MEDS: CITALOPRAM 20 MG TAB PO SCH (08:15)
[2019-05-10] MEDS: DOCUSATE SODIUM 100 MG CAP PO SCH ×2 (08:15→20:42)
[2019-05-10] MEDS: FOLIC ACID 1 MG TAB PO SCH (08:16)
[2019-05-10] MEDS: POTASSIUM CHLORIDE 20 MEQ TABCR PO SCH (08:16)
[2019-05-10] MEDS: CLOPIDOGREL BISULFATE 75 MG TAB PO SCH (08:17)
[2019-05-10] MEDS: FUROSEMIDE 40 MG in SYRINGE 0 ML IV SCH (08:22)
[2019-05-10] MEDS ORDERED: METOPROLOL SUCC 25MG EXT REL TAB PO SCH (09:00)
[2019-05-10] MEDS ORDERED: FUROSEMIDE 40 MG/4 ML VIAL IV SCH (09:00)
--- NOTE | 2019-05-10 10:42 | Hospitalist Progress Note ---
Date of Service May 10, 2019 Assessment & Plan (1) Acute on chronic diastolic (congestive) heart failure: Presented on admission with worsening SOB and B/L edema CXR on admission showed findings consistent with developing and/or progressive components of congestive heart failure [place] [id number] Received Lasix 20mg IV in the ER and additional 20mg given last night Repeat CXR today showed ,mildly progressive congestive heart failure Starting on IV Lasix 40mg IV ECHO pending Cardiology consult Monitor BMP while on IV lasix Will monitor I/O Clinically stable (2) COPD (chronic obstructive pulmonary disease): (3) Chronic respiratory failure with hypoxia: On Chronic 3-4L oxygen supplement Continue Neb treatment Continue chronic oxygen suplement Stable (4) HTN (hypertension): BP stable Continue metoprolol Continue monitor BP (5) Hypokalemia: K 3.6 today Will give an additional 20mg today since getting Lasix IV Continue Monitor BMP (6) DAYNA (iron deficiency anemia): Hgb: 7.8 today (baseline~8) Hold for any transfusion for now Monitor CBC (7) CKD (chronic kidney disease), stage III: Cr: 1.2. Baseline Cr: 1-1.2 Creatinine 1.3 today Avoid nephrotoxic agents when possible Monitor BMP (8) CVA (cerebral vascular accident): Continue Plavix, aspirin, atorvastatin (9) CAD (coronary artery disease): No chest pain Continue metoprolol, Plavix, aspirin, atorvastatin (10) Chronic hip pain: Continue hydrocodone, gabapentin (11) Depression: Continue home meds (12) Tobacco use disorder: Counseling on smoking cessation Continue nicotine patch DVT Prophylaxis SCDs CODE STATUS FULL CODE Admission and Anticipated Discharge Date Admission Date: May 09, 2019 Subjective Pt was seen and examined Lying in bed with no distress Pt said that her breathing slightly improves She said that she is having pain in her hip area that is chronic She said that the narco does not seems to help much Denies any chest pain, palpitation, dizziness and fever Physical Exam Physical Exam: General- No acute distress Head- atraumatic Eyes- PERRL, EOMI, ENT- oropharynx clear Neck- supple, no JVD Lungs- clear to auscultation Heart- regular rhythm; no murmur Abdomen- normal bowel sounds, soft, nontender Extremities- no calf tenderness Neuro- alert, oriented x 3; PERRL, EOMI; no facial palsy; no dysarthria Skin- warm & dry Results & Data ([facility]) Vital Signs (Past 12 Hours) Vital Signs Temp Pulse Pulse Resp BP Pulse Ox 05/10/19 07:56 36.2 C L 65 20 135/69 96 05/10/19 07:14 81 20 97 05/10/19 03:48 36.5 C 71 18 106/60 94 05/10/19 00:27 36.6 C 71 20 113/59 L 94 05/10/19 00:00 74
[2019-05-10] MEDS ORDERED: FUROSEMIDE 40 MG in SYRINGE 0 ML IV ONE (16:45)
--- NOTE | 2019-05-10 17:41 | Cardiology Consultation ---
Date of Consultation May 10, 2019 Assessment & Plan (1) CHF (congestive heart failure): Patient with history of diastolic congestive heart failure. At this time, likely has acute on chronic heart failure with preserved ejection fraction, repeat echocardiogram currently pending. Continue diuretic therapy, agree with furosemide 40 mg daily for now. Monitor creatinine. (2) NSVT (nonsustained ventricular tachycardia): Patient with 2 brief episodes of nonsustained ventricular tachycardia noted on telemetry, a 9 beat von at 2:19 AM today with rate of 130 bpm, and a 5 beat von 3:14 AM. Continue low-dose beta-rasta. Anemia noted: Her hemoglobin today was 7.8, down from 8.8 in February,, and 11.7 in November,. Patient is on chronic dual antiplatelet therapy due to peripheral arterial stenting of the lower extremities. The anemia however may be in part due to volume overload. Will check Iron studies if not already performed. Not on Pharmacologic DVT prophylaxis anemia, will reassess as hospitalization develops. History of Present Illness Attending Physician: Molly Delgado MD History of Present Illness Jennifer Negrete is a 74 year old female seen in cardiology consultation per the request of Dr Delgado for the assessment of shortness of breath, congestive heart failure. Patient is somewhat of a poor historian. She describes to me progressive shortness of breath for the last few days.Denies chest discomfort. In 2010, the patient had an abnormal nuclear stress test with follow-up cardiac catheterization revealing nonobstructive CAD. She had been seen by the undersigned in consultation in December 2017 at which time she was treated for both a respiratory tract infection as well as acute on chronic diastolic heart failure. Outpatient follow-up with the undersigned and did not schedule for January 2018 but patient did not keep that appointment, and has not followed with cardiology as an outpatient in the meantime. Allergies Allergy/AdvReac Type Severity Reaction Status Date / Time Cipro Allergy Mild ITCHY Verified 05/29/16 16:32 ciprofloxacin Allergy Mild ITCHY Verified 05/09/19 15:44 Influenza Virus Vaccines Allergy Unknown HIVES ON Unverified 05/09/19 15:44 THE SITE Nitrate Analogues Allergy Unknown UNSURE; Verified 05/09/19 15:44 BUT PATIENT TAKES NITROSTAT PER ADMIT MED REC. nitrofurantoin Allergy Unknown UNSURE Verified 05/09/19 15:44 pneumococcal vaccine Allergy Unknown unk Verified 05/09/19 15:44 azithromycin Allergy Unknown Verified 05/09/19 15:44 Home Medications Home Medications Medication Instructions Recorded Confirmed Type albuterol sulfate [Ventolin HFA] 2 puff INHALATION QID PRN 12/28/17 05/09/19 History aspirin 81 mg PO DAILY 12/28/17 05/09/19 History atorvastatin 20 mg PO DAILY 12/28/17 05/09/19 History clopidogrel 75 mg PO DAILY 12/28/17 05/09/19 History fluticasone propionate 2 spray INTRANASAL DAILY PRN 12/28/17 05/09/19 History folic acid 1 mg PO DAILY 12/28/17 05/09/19 History metoprolol succinate 12.5 mg PO BID 12/28/17 05/09/19 History nitroglycerin 0.4 mg SUBLINGUAL DIRECTED PRN 12/28/17 05/09/19 History omeprazole 20 mg PO DAILY 12/28/17 05/09/19 History umeclidinium 1 inh INHALATION DAILY 12/28/17 05/09/19 History docusate sodium [Colace] 100 mg PO BID 12/04/18 05/09/19 History potassium gluconate 550 mg PO DAILY 12/04/18 05/09/19 History citalopram 20 mg PO DAILY 03/19/19 05/09/19 History furosemide 20 mg PO DAILY 03/19/19 05/09/19 History trazodone 50 mg PO HS 03/19/19 05/09/19 History hydrocodone-acetaminophen 1 tab PO Q8H PRN 5 Days #15 tab 03/24/19 05/09/19 Rx gabapentin 300 mg PO TID 05/09/19 05/09/19 History Patient History Medical History Avascular necrosis (Chronic) CAD (coronary artery disease) (Chronic) Cardiac cath 2010-nonobstructive disease Carotid stenosis (Chronic) Chronic hip pain Chronic respiratory failure with hypoxia (Chronic) CKD (chronic kidney disease), stage III COPD (chronic obstructive pulmonary disease) (Chronic) CVA (cerebral vascular accident) (Chronic) Depression (Chronic) Diastolic CHF (Chronic) Dyslipidemia (Chronic) Hip pain, right (Chronic) HTN (hypertension) Hypertension (Chronic) DAYNA (iron deficiency anemia) (Chronic) IPMN (intraductal papillary mucinous neoplasm) (Chronic) Lumbar back pain (Chronic) PAD (peripheral artery disease) (Chronic) S/P stenting of the right distal common and right external iliac arteries Pancreatic duct stricture (Chronic) S/P stent Recurrent pancreatitis (Chronic) Sleep apnea (Chronic) Tobacco use disorder (Chronic) Surgical History H/O ventral hernia repair (Chronic) History of appendectomy (Chronic) History of cholecystectomy (Chronic) History of hysterectomy (Chronic) Family History Mother Stroke Father Stroke Social History Preferred Language: Brazilian Communication Ability: Effective Visual Impairment: No Limitations Inside Account Executive Required: No Beliefs That Will Affect Care: None marital status: / Current Living Situation: Alone Current Living Situation Comment: caregivers 9-5 pm daily x 40 hours/week Other Information That Helps Us Care for You: No Feels Safe at Home: Yes Safety Concerns: Feels Safe At This Time Smoking Status: Former smoker Tobacco Type: cigarettes ; Cigarettes Per Day: 20 ; Do You Dip or Chew Tobacco: No ; Second Hand Exposure: No ; Tobacco Cessation Education Requested by Patient: No Hx Alcohol Use: Yes Alcohol type: wine Hx Substance Use: No Review of Systems Review of Systems: All systems reviewed & are unremarkable except as noted in HPI & below Poor historian, review of systems somewhat unhelpful. Physical Exam Physical Exam: Temp Pulse Resp BP Pulse Ox 36.6 C 78 20 127/74 92 05/10/19 15:23 05/10/19 15:23 05/10/19 15:23 05/10/19 15:23 05/10/19 15:23 Constitutional: Chronically ill in appearance Respiratory: Coarse breath sounds bilaterally at the bases Cardiovascular: RRR, no murmur, no edema Gastrointestinal (Abdomen): normal bowel sounds, soft, nontender, no hepatosplenomegaly Neurologic: PERRL, EOMI, accommodation nl, no face palsy, no dysarthria Results & Data ([facility]) Vital Signs (Past 12 Hours) Vital Signs Temp Pulse Resp BP Pulse Ox 05/10/19 15:23 36.6 C 78 20 127/74 92 05/10/19 11:41 36.5 C 66 18 110/61 96 05/10/19 10:41 77 20 94 05/10/19 07:56 36.2 C L 65 20 135/69 96 05/10/19 07:14 81 20 97 Laboratory Results Cardiac Enzymes 05/09/19 Range/Units 19:09 Troponin I 0.035 (0-0.045) ng/ml CBC 05/10/19 Range/Units 02:54 WBC 5.07 (4.8-10.8) K/uL RBC 3.03 L (4.2-5.4) M/uL Hgb 7.8 L (12.0-16.0) g/dL Hct 26.1 L (37-47) % Plt Count 268 (130-400) K/uL Neut # (Auto) 2.93 (1.4-6.5) K/uL Lymph # (Auto) 1.21 (1.2-3.4) K/uL Frontier # (Auto) 0.57 (0.11-0.59) K/uL Eos # (Auto) 0.29 (0-0.5) K/uL Baso # (Auto) 0.06 (0-0.2) K/uL Comprehensive Metabolic Panel 05/09/19 05/10/19 Range/Units 19:09 02:54 Sodium 140 139 (136-145) mmol/L Potassium 3.5 D 3.6 (3.5-5.1) mmol/L Chloride 105 105 (98-107) mmol/L Carbon Dioxide 30 30 (21-32) mmol/L BUN 18 20 H (7-18) mg/dl Creatinine 1.43 H 1.34 H (0.6-1.2) mg/dl Glucose 116 H 96 (70-99) mg/dl Calcium 7.9 L 8.1 L (8.5-10.1) mg/dl Intake and Output 05/10/19 05/10/19 05/10/19 06:59 14:59 22:59 Intake Total 100 / 200 620 / 620 Output Total 300 / 1000 Balance -200 / -800 620 / 620 Intake: IV 100 / 100 MAGNESIUM SULFATE / D5W 1 gm In 100 / 100 100 ml @ 100 mls/hr IV ONE ONE Rx#:[id number] Oral 620 / 620 Output: Urine 300 / 1000 Other: Weight 53.9 kg 53.9 kg Patient Weight 05/11/19 06:59 Weight 53.9 kg Diagnostic Findings EKG performed 05/09/2019 reveals sinus rhythm at 82 bpm with PVCs, left ventricular hypertrophy by voltage criteria, mild nonspecific repolarization abnormalities. Chest x-ray suggestive of bilateral interstitial edema, small pleural effusions proBNP screen 13,640 pg/ml (1) CHF (congestive heart failure) Heart failure type: biventricular Qualified Code(s): I50.82 - Biventricular heart failure
[2019-05-10] MEDS: TRAZODONE HCL 50 MG TAB PO SCH (20:42)
[2019-05-11] MEDS: HYDROCODONE/ACETAMOPHEN 5/325MG TAB PO PRN (04:03)
[2019-05-11] MEDS: ALBUT/IPRATROP 3MG/0.5MG NEB 3 ML VIAL NEB SCH ×4 (07:11→19:18)
[2019-05-11] MEDS: NICOTINE 21 MG/24 HR TDSY TD SCH (08:14)
[2019-05-11] MEDS: FUROSEMIDE 40 MG in SYRINGE 0 ML IV SCH (08:14)
[2019-05-11] MEDS: CLOPIDOGREL BISULFATE 75 MG TAB PO SCH (08:15)
[2019-05-11] MEDS: FOLIC ACID 1 MG TAB PO SCH (08:15)
[2019-05-11] MEDS: GABAPENTIN 300 MG CAP PO SCH ×3 (08:15→20:46)
[2019-05-11] MEDS: METOPROLOL SUCC 25MG EXT REL TAB PO SCH ×2 (08:15→20:45)
[2019-05-11] MEDS: ASPIRIN 81 MG ECTAB PO SCH (08:15)
[2019-05-11] MEDS: POTASSIUM CHLORIDE 20 MEQ TABCR PO SCH (08:15)
[2019-05-11] MEDS: CITALOPRAM 20 MG TAB PO SCH (08:15)
[2019-05-11] MEDS: FERROUS SULFATE 325 MG TAB PO SCH ×2 (08:15→20:49)
[2019-05-11] MEDS: DOCUSATE SODIUM 100 MG CAP PO SCH ×2 (08:15→20:50)
[2019-05-11] MEDS: PANTOprazole 40 MG TAB PO SCH (08:15)
[2019-05-11] MEDS: ATORVASTATIN 20 MG TAB PO SCH (08:16)
[2019-05-11 08:40] LABS: Hematocrit (blood only) 26.3 % (37-47); Hemoglobin 7.9 g/dL (12.0-16.0); Mean Corpuscular Volume 86.5 fL (80-100); Mean Platelet Volume 8.9 fL (7.4-10.4); Platelet Count 286 K/uL (130-400); RDW Coefficient of Variation 16.6 % (11.5-14.5); RDW Standard Deviation 52.5 fL (36.4-46.3); Red Blood Count 3.04 M/uL (4.2-5.4); White Blood Count 5.27 K/uL (4.8-10.8)
[2019-05-11 09:16] LABS: BUN Creatinine Ratio 16.3 (10-20); Calcium 8.6 mg/dl (8.5-10.1); Creatinine Clr Calc Pharmacy 28.9 ml/min; Est GFR (African American) 44.1; Potassium 3.5 mmol/L (3.5-5.1)
[2019-05-11] MEDS: LIDOCAINE 5% 1 PATCH TD SCH (12:23)
--- NOTE | 2019-05-11 17:00 | Cardiology Progress Note ---
Date of Service May 11, 2019 Assessment & Plan (1) CHF (congestive heart failure): (2) NSVT (nonsustained ventricular tachycardia): (3) COPD (chronic obstructive pulmonary disease): Telemetry reveals no recurrence of the brief episodes of nonsustained VT noted yesterday. Clinically she is much improved. Renal function is stable. Echocardiogram reveals evidence of diastolic dysfunction with increased filling pressures, and she has severe pulmonary hypertension which is likely multifa ctorial due to underlying lung disease as well as diastolic dysfunction. Continue diuretic therapy as tolerated. Subjective Patient reports that she feels subjectively improved from a respiratory standpoint. She is received IV furosemide, based on her recorded intake and output, I am not certain that this is accurate. Her lungs sound much better. Telemetry reveals sinus rhythm with occasional PACs in the range of 70 to 80 bpm. The patient is much more conversant and more awake. More energy noted. Review of Systems Review of Systems: All systems reviewed & are unremarkable except as noted in HPI & below Physical Exam Physical Exam: Temp Pulse Resp BP Pulse Ox 36.8 C 77 18 96/63 L 92 05/11/19 15:47 05/11/19 15:47 05/11/19 15:47 05/11/19 15:47 05/11/19 15:47 Constitutional: WD/WN, vitals as above Respiratory: Mildly decreased breath sounds in the bases, the coarse breath sounds noted in the mid and lower lung cole yesterday have certainly improved. Cardiovascular: RRR, no murmur, no edema Gastrointestinal (Abdomen): normal bowel sounds, soft, nontender, no hepatosplenomegaly Neurologic: PERRL, EOMI, accommodation nl, no face palsy, no dysarthria Results & Data Vital Signs (Past 12 Hours) Vital Signs Temp Pulse Pulse Resp BP Pulse Ox 05/11/19 15:47 36.8 C 77 18 96/63 L 92 05/11/19 15:19 75 05/11/19 14:45 82 19 96 05/11/19 11:24 77 19 94 05/11/19 11:06 36.7 C 76 22 93/53 L 90 05/11/19 07:15 36.7 C 75 18 101/61 90 05/11/19 07:12 77 19 94 Laboratory Results CBC 05/11/19 Range/Units 08:26 WBC 5.27 (4.8-10.8) K/uL RBC 3.04 L (4.2-5.4) M/uL Hgb 7.9 L (12.0-16.0) g/dL Hct 26.3 L (37-47) % Plt Count 286 (130-400) K/uL Comprehensive Metabolic Panel 05/11/19 Range/Units 08:26 Sodium 141 (136-145) mmol/L Potassium 3.5 (3.5-5.1) mmol/L Chloride 104 (98-107) mmol/L Carbon Dioxide 30 (21-32) mmol/L BUN 22 H (7-18) mg/dl Creatinine 1.35 H (0.6-1.2) mg/dl Glucose 118 H (70-99) mg/dl Calcium 8.6 (8.5-10.1) mg/dl Intake and Output 05/11/19 05/11/19 05/11/19 06:59 14:59 22:59 Intake Total 280 / 1150 580 / 580 Output Total 300 / 300 Balance 280 / 798 280 / 280 Intake: Oral 280 / 1150 580 / 580 Output: Urine 300 / 300 Other: # Unmeasured Voids 1 Weight 51.6 kg (1) CHF (congestive heart failure) Heart failure type: biventricular Qualified Code(s): I50.82 - Biventricular heart failure (2) COPD (chronic obstructive pulmonary disease) COPD type: unspecified COPD Qualified Code(s): J44.9 - Chronic obstructive pulmonary disease, unspecified
--- NOTE | 2019-05-11 19:09 | Hospitalist Progress Note ---
Date of Service May 11, 2019 Assessment & Plan (1) Acute on chronic diastolic (congestive) heart failure: Presented on admission with worsening SOB and B/L edema CXR on admission showed findings consistent with developing and/or progressive components of congestive heart failure [place] [id number] Received Lasix 20mg IV in the ER and additional 20mg given last night Repeat CXR today showed ,mildly progressive congestive heart failure Continue IV Lasix 40mg IV daily Echocardiogram reveals evidence of diastolic dysfunction with increased filling pressures. Normal LV wall motion with EF 55-60% Cardiology on board recommended to continue diuresis Continue fluid restriction Monitor BMP while on IV lasix Continue monitor I/O Clinically stable (2) COPD (chronic obstructive pulmonary disease): (3) Chronic respiratory failure with hypoxia: On Chronic 3-4L oxygen supplement Continue Neb treatment Continue chronic oxygen suplement Stable (4) HTN (hypertension): BP stable Continue metoprolol Continue monitor BP (5) Hypokalemia: K 3.5 today Continue K supplement Continue Monitor BMP (6) DAYNA (iron deficiency anemia): Hgb: 7.8 today (baseline~8) Hold for any transfusion for now Monitor CBC (7) CKD (chronic kidney disease), stage III: Cr: 1.2. Baseline Cr: 1-1.2 Creatinine 1.3 today Avoid nephrotoxic agents when possible Monitor BMP Stable (8) CVA (cerebral vascular accident): Continue Plavix, aspirin, atorvastatin (9) CAD (coronary artery disease): No chest pain Continue metoprolol, Plavix, aspirin, atorvastatin (10) Chronic hip pain: Continue hydrocodone, gabapentin (11) Depression: Continue home meds (12) Tobacco use disorder: Counseling on smoking cessation Continue nicotine patch DVT Prophylaxis SCDs CODE STATUS FULL CODE Admission and Anticipated Discharge Date Admission Date: May 09, 2019 Subjective Pt was seen and examined Lying in bed with no distress She said that her breathing feels much better today She said that she is having hip pain and the norco does not help much Denies any chest pain, palpitation, dizziness and fever Physical Exam Physical Exam: General- No acute distress Head- atraumatic Eyes- PERRL, EOMI, ENT- oropharynx clear Neck- supple, no JVD Lungs- coarse BS improved Heart- regular rhythm; no murmur Abdomen- normal bowel sounds, soft, nontender Extremities- no calf tenderness Neuro- alert, oriented x 3; PERRL, EOMI; no facial palsy; no dysarthria Skin- warm & dry Results & Data ([facility]) Vital Signs (Past 12 Hours) Vital Signs Temp Pulse Pulse Resp BP Pulse Ox 05/11/19 15:47 36.8 C 77 18 96/63 L 92 05/11/19 15:19 75 05/11/19 14:45 82 19 96 05/11/19 11:24 77 19 94 05/11/19 11:06 36.7 C 76 22 93/53 L 90 05/11/19 07:15 36.7 C 75 18 101/61 90 05/11/19 07:12 77 19 94
[2019-05-11] MEDS: TRAZODONE HCL 50 MG TAB PO SCH (20:45)
[2019-05-12] MEDS: HYDROCODONE/ACETAMOPHEN 5/325MG TAB PO PRN ×2 (03:25→20:35)
[2019-05-12] MEDS: ALBUT/IPRATROP 3MG/0.5MG NEB 3 ML VIAL NEB SCH ×4 (07:21→21:13)
[2019-05-12 07:50] LABS: BUN Creatinine Ratio 14.8 (10-20); Calcium 8.2 mg/dl (8.5-10.1); Est GFR (African American) 40.8; Est GFR (Non-African American) 35.2; Potassium 3.9 mmol/L (3.5-5.1)
[2019-05-12 07:55] LABS: Ferritin 30.6 ng/ml (8-388)
[2019-05-12] MEDS: METOPROLOL SUCC 25MG EXT REL TAB PO SCH ×2 (08:29→20:28)
[2019-05-12] MEDS: CITALOPRAM 20 MG TAB PO SCH (08:30)
[2019-05-12] MEDS: POTASSIUM CHLORIDE 20 MEQ TABCR PO SCH (08:30)
[2019-05-12] MEDS: GABAPENTIN 300 MG CAP PO SCH ×3 (08:30→20:29)
[2019-05-12] MEDS: ASPIRIN 81 MG ECTAB PO SCH (08:30)
[2019-05-12] MEDS: FERROUS SULFATE 325 MG TAB PO SCH ×2 (08:30→20:30)
[2019-05-12] MEDS: PANTOprazole 40 MG TAB PO SCH (08:30)
[2019-05-12] MEDS: ATORVASTATIN 20 MG TAB PO SCH (08:30)
[2019-05-12] MEDS: CLOPIDOGREL BISULFATE 75 MG TAB PO SCH (08:30)
[2019-05-12] MEDS: NICOTINE 21 MG/24 HR TDSY TD SCH (08:31)
[2019-05-12] MEDS: FUROSEMIDE 40 MG in SYRINGE 0 ML IV SCH (08:31)
[2019-05-12] MEDS: FOLIC ACID 1 MG TAB PO SCH (08:31)
[2019-05-12] MEDS: LIDOCAINE 5% 1 PATCH TD SCH (08:31)
[2019-05-12] MEDS: DOCUSATE SODIUM 100 MG CAP PO SCH ×2 (08:42→20:35)
--- NOTE | 2019-05-12 13:52 | Cardiology Progress Note ---
Date of Service May 12, 2019 Assessment & Plan (1) CHF (congestive heart failure): Acute on chronic heart failure with preserved ejection fraction, (HFpEF) With noted diastolic dysfunction, pulmonary hypertension, left atrial dilatation on echocardiogram. Subjectively improved. Continue current dose of diuretics. Renal function stable, electrolytes stable. Hgb of 7.8-7.9 is certainly lower than the 11.2 g/dl noted as outpt in 12/2018. Fe level of 30 mcg/dl mildly low. Pt already on oral iron supplement. Had Colonoscopy performed in 2013 for evaluation of iron deficiency anemia without significant findings at the time. Looking forward would likely plan for discharge of furosemide 40 mg PO daily As compared to her prior to hospital dose of 20 mg. (2) Anemia: Subjective Chief complaint: Follow-up shortness of breath Subjective: Patient feeling improved from a respiratory standpoint. Telemetry reveals stable sinus rhythm. Review of Systems Review of Systems: All systems reviewed & are unremarkable except as noted in HPI & below Physical Exam Physical Exam: Temp Pulse Resp BP Pulse Ox 36.2 C L 72 18 105/58 L 90 05/12/19 11:11 05/12/19 11:38 05/12/19 11:38 05/12/19 11:11 05/12/19 11:38 Constitutional: WD/WN, vitals as above Respiratory: normal respiratory effort, lungs clear to auscultation Cardiovascular: RRR, no murmur, no edema Gastrointestinal (Abdomen): normal bowel sounds, soft, nontender, no hepatosplenomegaly Neurologic: PERRL, EOMI, accommodation nl, no face palsy, no dysarthria Results & Data Vital Signs (Past 12 Hours) Vital Signs Temp Pulse Pulse Resp BP Pulse Ox 05/12/19 11:38 72 18 90 05/12/19 11:11 36.2 C L 72 16 105/58 L 95 05/12/19 10:32 75 05/12/19 07:21 69 16 93 05/12/19 07:00 36.7 C 79 20 126/80 94 05/12/19 03:16 36.8 C 81 20 134/73 93 05/12/19 03:08 61 Laboratory Results Comprehensive Metabolic Panel 05/12/19 Range/Units 06:59 Sodium 139 (136-145) mmol/L Potassium 3.9 (3.5-5.1) mmol/L Chloride 105 (98-107) mmol/L Carbon Dioxide 30 (21-32) mmol/L BUN 21 H (7-18) mg/dl Creatinine 1.44 H (0.6-1.2) mg/dl Glucose 103 H (70-99) mg/dl Calcium 8.2 L (8.5-10.1) mg/dl Intake and Output 05/11/19 05/12/19 05/12/19 22:59 06:59 14:59 Intake Total 300 / 1080 200 / 1080 Output Total 400 / 700 Balance 300 / 380 -200 / 380 Intake: Oral 300 / 1080 200 / 1080 Output: Urine 400 / 700 Other: Weight 51.5 kg (1) CHF (congestive heart failure) Heart failure type: biventricular Qualified Code(s): I50.82 - Biventricular heart failure (2) Anemia Anemia type: unspecified type Qualified Code(s): D64.9 - Anemia, unspecified
--- NOTE | 2019-05-12 19:48 | Hospitalist Progress Note ---
Date of Service May 12, 2019 Assessment & Plan (1) Acute on chronic diastolic (congestive) heart failure: Presented on admission with worsening SOB and B/L edema CXR on admission showed findings consistent with developing and/or progressive components of congestive heart failure [place] today was [id number] Received Lasix 20mg IV in the ER and additional 20mg given last night Repeat CXR today showed ,mildly progressive congestive heart failure Echocardiogram reveals evidence of diastolic dysfunction with increased filling pressures. Normal LV wall motion with EF 55-60% Cardiology on board recommended to continue diuresis Continue IV Lasix 40mg IV daily, will transition to PO lasix 40mg on discharge Continue fluid restriction Monitor BMP while on IV lasix Continue monitor I/O Clinically stable (2) COPD (chronic obstructive pulmonary disease): (3) Chronic respiratory failure with hypoxia: On Chronic 3-4L oxygen supplement Continue Neb treatment Continue chronic oxygen suplement Stable (4) HTN (hypertension): BP stable Continue metoprolol Continue monitor BP (5) Hypokalemia: K 3.9 today Continue K supplement Continue Monitor BMP (6) DAYNA (iron deficiency anemia): Hgb: 7.9 today (baseline~8) Hold for any transfusion for now Monitor CBC (7) CKD (chronic kidney disease), stage III: Cr: 1.2. Baseline Cr: 1-1.2 Creatinine 1.3 today Avoid nephrotoxic agents when possible Monitor BMP Stable (8) CVA (cerebral vascular accident): Continue Plavix, aspirin, atorvastatin (9) CAD (coronary artery disease): No chest pain Continue metoprolol, Plavix, aspirin, atorvastatin (10) Chronic hip pain: Continue hydrocodone, gabapentin (11) Depression: Continue home meds (12) Tobacco use disorder: Counseling on smoking cessation Continue nicotine patch DVT Prophylaxis Heparin subq CODE STATUS FULL CODE Admission and Anticipated Discharge Date Admission Date: May 09, 2019 Subjective Pt was seen and examined Lying in bed with no distress Pt said that she feels much better she said that her breathing feels much better Denies any chest pain, palpitation and SOB Physical Exam Physical Exam: General- No acute distress Head- atraumatic Eyes- PERRL, EOMI, ENT- oropharynx clear Neck- supple, no JVD Lungs- coarse BS improved Heart- regular rhythm; no murmur Abdomen- normal bowel sounds, soft, nontender Extremities- no calf tenderness Neuro- alert, oriented x 3; PERRL, EOMI; no facial palsy; no dysarthria Skin- warm & dry Results & Data ([facility]) Vital Signs (Past 12 Hours) Vital Signs Temp Pulse Pulse Resp BP Pulse Ox 05/12/19 19:40 36.7 C 85 18 131/82 96 05/12/19 16:29 71 05/12/19 15:52 36.8 C 80 18 110/70 94 05/12/19 15:03 76 16 92 05/12/19 11:38 72 18 90 05/12/19 11:11 36.2 C L 72 16 105/58 L 95 05/12/19 10:32 75
[2019-05-12] MEDS: HEPARIN SOD 5,000 UNIT/0.5 ML VIAL SQ SCH ×2 (20:26→20:39)
[2019-05-12] MEDS: TRAZODONE HCL 50 MG TAB PO SCH (20:35)
[2019-05-12] MEDS ORDERED: OXYCODONE/ACETAMINOPHEN 5mg/325mg TAB PO PRN (23:50)
[2019-05-13 06:40] LABS: Hematocrit (blood only) 25.9 % (37-47); Hemoglobin 7.5 g/dL (12.0-16.0); Mean Corpuscular Volume 89.6 fL (80-100); Mean Platelet Volume 8.9 fL (7.4-10.4); Platelet Count 284 K/uL (130-400); RDW Coefficient of Variation 17.1 % (11.5-14.5); RDW Standard Deviation 55.1 fL (36.4-46.3); Red Blood Count 2.89 M/uL (4.2-5.4); White Blood Count 5.96 K/uL (4.8-10.8)
[2019-05-13 07:12] LABS: BUN Creatinine Ratio 14.5 (10-20); Calcium 8.3 mg/dl (8.5-10.1); Creatinine Clr Calc Pharmacy 29.1 ml/min; Est GFR (African American) 43.7; Est GFR (Non-African American) 37.7; Potassium 4.1 mmol/L (3.5-5.1)
[2019-05-13] MEDS: ALBUT/IPRATROP 3MG/0.5MG NEB 3 ML VIAL NEB SCH ×4 (07:20→19:39)
[2019-05-13] MEDS: LIDOCAINE 5% 1 PATCH TD SCH (09:11)
[2019-05-13] MEDS: NICOTINE 21 MG/24 HR TDSY TD SCH (09:11)
[2019-05-13] MEDS: CLOPIDOGREL BISULFATE 75 MG TAB PO SCH (09:12)
[2019-05-13] MEDS: HEPARIN SOD 5,000 UNIT/0.5 ML VIAL SQ SCH (09:12)
[2019-05-13] MEDS: POTASSIUM CHLORIDE 20 MEQ TABCR PO SCH (09:12)
[2019-05-13] MEDS: FOLIC ACID 1 MG TAB PO SCH (09:13)
[2019-05-13] MEDS: ATORVASTATIN 20 MG TAB PO SCH (09:13)
[2019-05-13] MEDS: FERROUS SULFATE 325 MG TAB PO SCH (09:13)
[2019-05-13] MEDS: CITALOPRAM 20 MG TAB PO SCH (09:13)
[2019-05-13] MEDS: METOPROLOL SUCC 25MG EXT REL TAB PO SCH (09:13)
[2019-05-13] MEDS: PANTOprazole 40 MG TAB PO SCH (09:13)
[2019-05-13] MEDS: FUROSEMIDE 40 MG in SYRINGE 0 ML IV SCH (09:13)
[2019-05-13] MEDS: GABAPENTIN 300 MG CAP PO SCH ×2 (09:13→13:44)
[2019-05-13] MEDS: ASPIRIN 81 MG ECTAB PO SCH (09:13)
[2019-05-13] MEDS: DOCUSATE SODIUM 100 MG CAP PO SCH ×2 (09:14→09:15)
[2019-05-13] MEDS ORDERED: IRON SUCROSE 400 MG in SODIUM CHLORIDE 0.9% 250 ML IV ONE (11:45)
--- NOTE | 2019-05-13 14:55 | Hospitalist Progress Note ---
Date of Service May 13, 2019 Assessment & Plan (1) Acute on chronic diastolic (congestive) heart failure: Presented on admission with worsening SOB and B/L edema CXR on admission showed findings consistent with developing and/or progressive components of congestive heart failure [place]BNP done today was [id number] Received Lasix 20mg IV in the ER and additional 20mg given last night Repeat CXR today showed ,mildly progressive congestive heart failure Echocardiogram reveals evidence of diastolic dysfunction with increased filling pressures. Normal LV wall motion with EF 55-60% Cardiology on board recommended to continue diuresis Continue IV Lasix 40mg IV daily, will transition to PO lasix 40mg on discharge Ok from cardiology to discharge home Continue fluid restriction Monitor BMP while on IV lasix Continue monitor I/O Clinically stable (2) COPD (chronic obstructive pulmonary disease): (3) Chronic respiratory failure with hypoxia: On Chronic 3-4L oxygen supplement Continue Neb treatment Continue chronic oxygen suplement Stable (4) HTN (hypertension): BP stable Continue metoprolol Continue monitor BP (5) Hypokalemia: K 3.9 today Continue K supplement Continue Monitor BMP (6) DAYNA (iron deficiency anemia): Hgb: 7.5 today, (baseline~8) Hold for any transfusion for now Pt said that she was supposed to be on iron supplement, but stopped taking few months ago due to constipation IV venofer given today Will give Senokot to facilitate compliance with the iron supplement Repeat hgb 8.3 after the Venofer Advised pt to continue the iron supplment Check CBC in 1 to 2 week (7) CKD (chronic kidney disease), stage III: Cr: 1.2. Baseline Cr: 1-1.2 Creatinine 1.3 today Avoid nephrotoxic agents when possible Monitor BMP Stable (8) CVA (cerebral vascular accident): Continue Plavix, aspirin, atorvastatin (9) CAD (coronary artery disease): No chest pain Continue metoprolol, Plavix, aspirin, atorvastatin (10) Chronic hip pain: Continue hydrocodone, gabapentin (11) Depression: Continue home meds (12) Tobacco use disorder: Counseling on smoking cessation Continue nicotine patch DVT Prophylaxis Heparin subq CODE STATUS FULL CODE Admission and Anticipated Discharge Date Admission Date: May 09, 2019 Subjective Pt was seen and examined Lying in bed with no distress Pt said that she feels fine She said that her breathing feels much better She said that she is ready to go home today She is very anxious to be discharged home She said that she does not want to go to rehab She denies any chest pain, palpitation, dizziness and SOB Nurse called later and said that pt feels tired I want to reevaluate her, she said that she feels tired and sleepy She is thinking between to go home or spend the night She said that she would decide after I check her H/H Then if hgb drops, she would stay for the night Repeat Hbg 8.3 after the IV venofer Pt said that she feels much better She would like to go home tonight Physical Exam Physical Exam: General- No acute distress Head- atraumatic Eyes- PERRL, EOMI, ENT- oropharynx clear Neck- supple, no JVD Lungs- coarse BS improved Heart- regular rhythm; no murmur Abdomen- normal bowel sounds, soft, nontender Extremities- no calf tenderness Neuro- alert, oriented x 3; PERRL, EOMI; no facial palsy; no dysarthria Skin- warm & dry Results & Data ([facility]) Vital Signs (Past 12 Hours) Vital Signs Temp Pulse Resp BP Pulse Ox 05/13/19 11:22 36.4 C L 70 16 122/73 95 05/13/19 11:11 70 20 95 05/13/19 07:21 67 20 95 05/13/19 07:02 36.7 C 67 18 100/62 94 05/13/19 03:19 36.7 C 81 20 148/78 H 93
[2019-05-13 16:53] LABS: Hematocrit (blood only) 27.8 % (37-47); Hemoglobin 8.3 g/dL (12.0-16.0)
--- NOTE | 2019-05-15 22:50 | Discharge Summary ---
Date of Service May 13, 2019 Admission HPI Per Admitting Provider Pt is 74 y/o F with PMH COPD on 3-4 L oxygen, nonobstructive CAD on cath in 2010, PAD, CVA, chronic diastolic CHF, HTN, CKD III, chronic hip pain, tobacco use presented to ER with complaint of shortness of breath x couple of days. Patient states noticed increased shortness of breath over the last couple of days and is short of breath at rest. Normally sleeps on an incline and does not think any increased orthopnea. Reports has been noticing bilateral ankle edema over the past week or so. Denies any chest pain. Reports has had a cough sometimes productive of white-colored sputum. Reports has attempted to stop smoking has been using nicotine patch recently. Recent hospitalization at [facility] 03/19/19 - 03/24 19 for confusion, ESBL UTI and was discharged to [facility] for continued ertapenem IV. Was discharged home on 05/02/2019. Denies fever/chills, diaphoresis, N/V/D/C, VELEZ, dizziness, syncope, vision changes, neck pain, CP, palpitations, sore throat, choking, otalgia, rhinorrhea, abdominal pain, paresth esias, weakness, extremity weakness, rashes, urinary symptoms, recent travel, ill contacts. History echo 10/2017: EF: 55-59%, grade 1 diastolic dysfunction, mild mitral regurgitation, mild tricuspid regurgitation Admission Exam Per Admitting Provider General: no distress on 3L oxygen, Thin Head: normocephalic, atraumatic Eyes: PERRL, EOM's intact, conjunctiva non-injected, anicteric ENT: normal inspection external ears, nose, mucous membranes moist Neck: supple, trachea midline Lungs: no respiratory distress on current 3L oxygen via NC with sat 95%, RR: 18, +diffuse wheezing, rales at bases CV: RRR, no murmur, no JVD, 1+ pretibial edema Abd: normal BS, soft, non-tender Ext: no cyanosis, no calf tenderness Neuro: A&O x 3, no focal deficits noted, normal affect Skin: warm, dry Principal Diagnosis (1) Acute on chronic diastolic (congestive) heart failure: (2) COPD (chronic obstructive pulmonary disease): (3) Chronic respiratory failure with hypoxia: (4) HTN (hypertension): (5) Hypokalemia: (6) DAYNA (iron deficiency anemia) (7) CKD (chronic kidney disease), stage III: (8) CVA (cerebral vascular accident): (9) CAD (coronary artery disease): (10) Chronic hip pain: (11) Depression: (12) Tobacco use disorder: Discharge Exam General- No acute distress Head- atraumatic Eyes- PERRL, EOMI, ENT- oropharynx clear Neck- supple, no JVD Lungs- coarse BS improved Heart- regular rhythm; no murmur Abdomen- normal bowel sounds, soft, nontender Extremities- no calf tenderness Neuro- alert, oriented x 3; PERRL, EOMI; no facial palsy; no dysarthria Skin- warm & dry Discharge Data Allergies Allergy/AdvReac Type Severity Reaction Status Date / Time Cipro Allergy Mild ITCHY Verified 05/29/16 16:32 ciprofloxacin Allergy Mild ITCHY Verified 05/09/19 15:44 Influenza Virus Vaccines Allergy Unknown HIVES ON Unverified 05/09/19 15:44 THE SITE Nitrate Analogues Allergy Unknown UNSURE; Verified 05/09/19 15:44 BUT PATIENT TAKES NITROSTAT PER ADMIT MED REC. nitrofurantoin Allergy Unknown UNSURE Verified 05/09/19 15:44 pneumococcal vaccine Allergy Unknown unk Verified 05/09/19 15:44 azithromycin Allergy Unknown Verified 05/09/19 15:44 Consultations 05/09/19 14:46 ED Decision to Admit Stat 05/09/19 16:11 Consult Case Management - Discharge Planning Routine 05/10/19 10:42 Consult Cardiology Routine Ordered Studies XR chest 1V portable CLINICAL HISTORY: Chest Pain dyspnea COMPARISON STUDY: 03/20/2019 FINDINGS: Interval increase in cardiac size. Findings consistent with developing and/or progressive components of congestive heart failure. Small left and to a lesser extent minimal right effusion. IMPRESSION: Congestive heart failure. ACT 112: Negative or not required by law. The above report was generated using voice recognition software. It may contain grammatical, syntax or spelling errors. Electronically signed by: Sanjay Cid M.D. 05/09/2019 1:56 PM Dictated: 05/09/19 1356 Transcribed: 05/09/19 1356 XR chest 1V portable CLINICAL HISTORY: CHF dyspnea COMPARISON STUDY: 05/09/2019 FINDINGS: Moderate stable cardiomegaly. Slightly progressive components of congestive heart failure. Small bilateral pleural effusions slightly increased in volume. IMPRESSION: Mildly progressive congestive heart failure ACT 112: Negative or not required by law. The above report was generated using voice recognition software. It may contain grammatical, syntax or spelling errors. Electronically signed by: Sanjay Cid M.D. 05/10/2019 7:47 AM Dictated: 05/10/19745 Transcribed: 05/10/19745 Hospital Course (1) Acute on chronic diastolic (congestive) heart failure: Presented on admission with worsening SOB and B/L edema CXR on admission showed findings consistent with developing and/or progressive components of congestive heart [place] [address] Received Lasix 20mg IV in the ER and additional 20mg given last night Repeat CXR today showed ,mildly progressive congestive heart failure Echocardiogram reveals evidence of diastolic dysfunction with increased filling pressures. Normal LV wall motion with EF 55-60% Cardiology on board recommended to continue diuresis Continue IV Lasix 40mg IV daily, will transition to PO lasix 40mg on discharge Ok from cardiology to discharge home Continue fluid restriction Monitor BMP while on IV lasix Continue monitor I/O Clinically stable (2) COPD (chronic obstructive pulmonary disease): (3) Chronic respiratory failure with hypoxia: On Chronic 3-4L oxygen supplement Continue Neb treatment Continue chronic oxygen suplement Stable (4) HTN (hypertension): BP stable Continue metoprolol Continue monitor BP (5) Hypokalemia: K 3.9 today Continue K supplement Continue Monitor BMP (6) DAYNA (iron deficiency anemia): Hgb: 7.5 today, (baseline~8) Hold for any transfusion for now Pt said that she was supposed to be on iron supplement, but stopped taking few months ago due to constipation IV venofer given today Will give Senokot to facilitate compliance with the iron supplement Repeat hgb 8.3 after the Venofer Advised pt to continue the iron supplment Check CBC in 1 to 2 week (7) CKD (chronic kidney disease), stage III: Cr: 1.2. Baseline Cr: 1-1.2 Creatinine 1.3 today Avoid nephrotoxic agents when possible Monitor BMP Stable (8) CVA (cerebral vascular accident): Continue Plavix, aspirin, atorvastatin (9) CAD (coronary artery disease): No chest pain Continue metoprolol, Plavix, aspirin, atorvastatin (10) Chronic hip pain: Continue hydrocodone, gabapentin (11) Depression: Continue home meds (12) Tobacco use disorder: Counseling on smoking cessation Continue nicotine patch DVT Prophylaxis Heparin subq CODE STATUS FULL CODE Total Time Total Time Spent Total Time Spent (In Minutes): 35 minutes Total Time Includes: Examination of the Patient, Discharge Planning, Medication Reconciliation, Communication With Other Providers and Other Discharge Plan Discharge Items Patient Disposition: Home - Home Health Services Reason For Visit: CHF EXACERBATION Discharge Diagnosis: (1) Acute on chronic diastolic (congestive) heart failure: (2) COPD (chronic obstructive pulmonary disease): (3) Chronic respiratory failure with hypoxia: (4) HTN (hypertension): (5) Hypokalemia: (6) DAYNA (iron deficiency anemia) (7) CKD (chronic kidney disease), stage III: (8) CVA (cerebral vascular accident): (9) CAD (coronary artery disease): (10) Chronic hip pain: (11) Depression: (12) Tobacco use disorder: Activity: Resume your previous activity Non-emergency contact: Primary Care Provider Call non-emergency contact if: you have any medication questions Follow-up/Referrals: Lena Quintanilla DO [Primary Care Provider] - Diet: Heart Healthy Addtl Attending Provider Instructions: Follow up with your primary care provider Dr. Quintanilla within 1 week Continue physical and occupational therapy Fall precaution Check BMP in 1 week to monitor electrolytes and kidney function Check CBC in 1 week to check your hemoglobin Continue iron supplement Do not drive or operate any machine while taking narcotic Please hold next dose of narcotic if you become drowsy and lethargy Continue oxygen supplement Lasix increased to 40mg daily (Ok to take 2 tabs of 20mg for now until you shrimp picker your prescription at the pharmacy) Continue fluid restriction to 1.8 liter daily CHF Discharge Instructions Call your Primary Care doctor if any of the following symptoms or problems start or get worse: Shortness of breath or difficulty breathing Wake up at night short of breath Chest pain Cough Swelling of your hands, feet, or legs More fatigued or tired with your normal activity Palpitations - sudden fast heart beats WEIGHT Weigh yourself every morning after using the bathroom. Use the same scale. Wear the same amount of clothing. Write your weight down on a chart. Call your Primary Care doctor if you gain more than 2-3 pounds in 1-2 days. MEDICATIONS Use this discharge instruction sheet for medication instructions. Take your medications at the time your doctor ordered. Do not skip a dose of your medicines. If you miss a dose of medicine, take it as soon as possible, but DO NOT DOUBLE A DOSE. Read your medicine information when you get home. Know all of the side effects of your medicine. If in doubt, ask your pharmacist Call your Primary Care doctor's office if you have any side effects. Be sure all of your doctors know what medicine and herbs you take (including cold, flu, and herbal medicine). Take the following with you to your follow-up doctor appointments: Weight Chart Medication List List of questions Do not drink excessive alcohol, beer or wine. Pending Studies at Discharge: No Stand-Alone Forms: [employer], Smoking Cessation Medications and DC Order Prescriptions: New furosemide [Lasix] 40 mg tablet 40 mg PO DAILY Qty: 30 RF: 0 sennosides-docusate sodium [Senokot-S] 8.6-50 mg tablet 1 tabcap PO DAILY PRN (Reason: constipation) Qty: 30 RF: 0 Continued atorvastatin 20 mg tablet 20 mg PO DAILY RF: 0 clopidogrel 75 mg tablet 75 mg PO DAILY RF: 0 aspirin 81 mg Tablet,Delayed Release (Dr/Ec) 81 mg PO DAILY RF: 0 nitroglycerin 0.4 mg tablet, sublingual 0.4 mg Sublingual DIRECTED PRN (Reason: Chest Pain) RF: 0 omeprazole 20 mg capsule,delayed release(DR/EC) 20 mg PO DAILY RF: 0 folic acid 1 mg Tablet 1 mg PO DAILY RF: 0 metoprolol succinate 25 mg tablet extended release 24 hr 12.5 mg PO BID RF: 0 albuterol sulfate [Ventolin HFA] 90 mcg/actuation Hfa Aerosol Inhaler 2 puff INHALATION QID PRN (Reason: Shortness Of Breath Or Wheezing) RF: 0 fluticasone propionate 50 mcg/actuation Allen,Suspension 2 spray INTRANASAL DAILY PRN (Reason: Nasal Congestion) RF: 0 umeclidinium 62.5 mcg/actuation blister with device 1 inh Inhalation DAILY RF: 0 potassium gluconate 550 mg (90 mg) Tablet 550 mg PO DAILY RF: 0 gabapentin 300 mg capsule 300 mg PO TID RF: 0 citalopram 20 mg tablet 20 mg PO DAILY RF: 0 trazodone 50 mg tablet 50 mg PO HS RF: 0 hydrocodone-acetaminophen 5-325 mg tablet 1 tab PO Q8H PRN (Reason: Pain) 5 Days Qty: 15 RF: 0 Discontinued docusate sodium [Colace] 100 mg Capsule 100 mg PO BID RF: 0 furosemide 20 mg tablet 20 mg PO DAILY RF: 0 Discharge Orders: Discharge Order (Routine); Ordered 05/13/19 Ordered By: Molly Delgado Admission Data Admit Date/Time: 05/09/19 15:06 Attending Provider: Molly Delgado Admit Provider: Molly Delgado Primary Care Provider: Lena Quintanilla Other Providers: Dano Wolff ; Gary Yuan Other Interventions: Discharge Summary Assessment (RN) Last Done: 05/13/19 18:07 DC Date/Time DO NOT enter until pt leaves facility: 05/13/19 20:11
== END 2019-05-13 20:11 | disposition home health service (06) | DRG 291 ==
LOC: ED 12:11 → 2N 15:06 → 2W 22:03

== ENCOUNTER 2019-06-18 02:33 | Inpatient (IN) ==
[2019-06-18] MEDS ORDERED: STAT IV Infusion **Titration per Protocol STA (02:49)
[2019-06-18] MEDS ORDERED: FUROSEMIDE 40 MG/4 ML VIAL IV STA (02:49)
[2019-06-18] MEDS ORDERED: NITROGLYCERIN/D5W 100 MCG/ML BTL ONE (02:49)
[2019-06-18] MEDS ORDERED: ALBUT/IPRATROP 3MG/0.5MG NEB 3 ML VIAL ONE (02:54)
--- NOTE | 2019-06-18 02:56 | Emergency Department Note ---
Impression & Plan Acute on chronic respiratory failure with hypoxia and hypercapnia, Anemia, Acute exacerbation of CHF (congestive heart failure), Hypertensive emergency ED Provider Note NAME: MACRINA MADRIGAL AGE: 74 SEX: F : 1945 ARRIVES VIA: Ambulance INFORMANT: Patient, ED PROVIDER(S): Harman Oneill MD Chief Complaint: Shortness of breath HPI: 74 y/o F with PMH COPD on 3-4 L oxygen, nonobstructive CAD on cath in 15 01, PAD, CVA, chronic diastolic CHF, HTN, CKD III, chronic hip pain, tobacco use presented to ER with complaint of shortness of breath x3 to 4 days. The patient does state that this is gotten progressively worse. EMS did arrive and the patient was satting in the 70s. She was placed on CPAP. The patient does complain of a productive cough that is blood-tinged. The patient does have a known history of CHF and COPD. The patient does complain of some mild weight gain. Patient states she has been compliant with her medications including her Lasix. Patient states that the oxygen has not made it better. The patient also has not used any of her nebulizer treatments at home. ROS: See HPI for pertinent positives and negatives. A total of 10 systems were reviewed and otherwise negative. Past medical history: See below Surgical history: See below Social history: See below Physical Exam: GENERAL: Severe distress, ashen in appearance. CPAP mask in place. EYE EXAM: Normal conjunctiva. PERRL, no anisocoria and EOM's grossly intact w/o pain. NECK: Supple, no nuchal rigidity, no adenopathy, non-tender. No signs of meningismus. LUNGS: Tachypnea, crackles throughout, respiratory distress. HEART: Tachycardic and regular, no MRG. ABDOMEN: Abdomen soft, non-tender, normo-active bowel sounds, no masses, no rebound or guarding. BACK: No CVA TTP. SKIN: No rashes and no bruising. UPPER EXTREMITIES: Upper extremities are grossly normal. LOWER EXTREMITIES: Grossly normal, mild lower extremity edema that is symmetric without erythema. NEURO EXAM: Awake and alert, moves all 4 extremities. Differential diagnoses: Reactive airway disease, pneumonia, pneumothorax, COPD, CHF, infections, cardiac ischemia, pulmonary embolism, musculoskeletal, gastrointestinal, as well as other pathologies. Course: Patient was seen and evaluated the bedside. A full history and physical exam was performed. EKG: Location: Shortness of breath Sinus tachycardia, rate of 102, normal intervals, normal axis, slight ST depressions in the lateral leads. The patient's depressions are may be slightly worse compared to prior. This is from a comparison EKG May 23, 2019. Imaging Studies: Chest x-ray 1 view, comparison x-ray 05/23/2019 Indication: Shortness of breath Impression: Increasing haziness of the right lung with associated pulmonary edema. No obvious focal consolidation. Cardiac monitoring: An order was placed for continuous cardiac monitoring. The monitor shows a rate of 80 with sinus rhythm. MDM: Patient was seen and evaluated the bedside. The patient did present in severe respiratory distress. The patient is on baseline 3 to 4 L per apparently was not using any additional rescue treatments. The patient in the department when taken off of her CPAP to be placed on the alert did desat into the 50s. The patient subsequently responded appropriately. A bedside [id number] ultrasound was completed showed that the patient does have a slightly enlarged LV but the patient does not have new any obvious pericardial effusion. The patient did have some B-lines concerning for edema versus infection. The patient has had a productive cough. It is streaked with blood. The patient is not on blood thinning medications. The patient has noted some increased lower extremity swelling and weight gain. The patient was given Lasix a Andrade was placed blood work was obtained. The patient was started on nitro given her SBP greater than 200. Patient was continued to be titrated down on her oxygen as well as her nitro. Patient did have significant improvement in her symptoms was much improved. Nitro was titrated off. I did speak with the on-call hospitalist Dr. [id number], [facility] [place]. He will further evaluate treat the patient. Patient was admitted to the medicine service. Critical Care: I have personally spent 75 minutes of critical care time in direct management of this patient. This includes bedside care, interpretation of diagnostic studies, and testing, discussion with consultants, patient, and family members, and other require inpatient management activities. This 75 minutes is in excess of all separately billable procedures. Past Med/Surg History Medical History Avascular necrosis (Chronic) CAD (coronary artery disease) (Chronic) Cardiac cath 2010-nonobstructive disease Carotid stenosis (Chronic) Chronic hip pain Chronic respiratory failure with hypoxia (Chronic) CKD (chronic kidney disease), stage III COPD (chronic obstructive pulmonary disease) (Chronic) CVA (cerebral vascular accident) (Chronic) Depression (Chronic) Diastolic CHF (Chronic) Dyslipidemia (Chronic) Hip pain, right (Chronic) HTN (hypertension) Hypertension (Chronic) DAYNA (iron deficiency anemia) (Chronic) IPMN (intraductal papillary mucinous neoplasm) (Chronic) Lumbar back pain (Chronic) PAD (peripheral artery disease) (Chronic) S/P stenting of the right distal common and right external iliac arteries Pancreatic duct stricture (Chronic) S/P stent Recurrent pancreatitis (Chronic) Sleep apnea (Chronic) Tobacco use disorder (Chronic) Surgical History H/O ventral hernia repair (Chronic) History of appendectomy (Chronic) History of cholecystectomy (Chronic) History of hysterectomy (Chronic) Family History Mother Stroke Father Stroke Social History Preferred Language: Citizen Of [place] Communication Ability: Effective Visual Impairment: No Limitations Application Performance Engineer Required: No Beliefs That Will Affect Care: None marital status: / Current Living Situation: Alone Current Living Situation Comment: Caregivers 9a-5p daily x 40hrs/wk Other Information That Helps Us Care for You: No Feels Safe at Home: Yes Safety Concerns: Feels Safe At This Time Smoking Status: Former smoker Tobacco Type: cigarettes ; Cigarettes Per Day: 20 ; Do You Dip or Chew Tobacco: No ; Smoking End Date: 02/26/2019 ; Second Hand Exposure: No ; Tobacco Cessation Education Requested by Patient: No Hx Alcohol Use: Yes Alcohol type: wine Hx Substance Use: No Allergies Allergies Allergy/AdvReac Type Severity Reaction Status Date / Time ciprofloxacin Allergy Mild ITCHY Verified 06/18/19 03:45 azithromycin Allergy Unknown Unknown Verified 06/18/19 03:45 Nitrate Analogues Allergy Unknown UNSURE; Verified 06/18/19 03:45 BUT PATIENT TAKES NITROSTAT PER ADMIT MED REC. nitrofurantoin Allergy Unknown UNSURE Verified 06/18/19 03:45 pneumococcal vaccine Allergy Unknown unk Verified 06/18/19 03:45 Influenza Virus Vaccines AdvReac Mild HIVES ON Verified 06/18/19 03:45 THE SITE Home Meds Home Medications Medication Instructions Recorded Confirmed albuterol sulfate [Ventolin HFA] 2 puff INHALATION QID PRN 12/28/17 06/18/19 aspirin 81 mg PO DAILY 12/28/17 06/18/19 atorvastatin 20 mg PO DAILY 12/28/17 06/18/19 clopidogrel 75 mg PO DAILY 12/28/17 06/18/19 fluticasone propionate 2 spray INTRANASAL DAILY PRN 12/28/17 06/18/19 folic acid 1 mg PO DAILY 12/28/17 06/18/19 metoprolol succinate 12.5 mg PO BID 12/28/17 06/18/19 nitroglycerin 0.4 mg SUBLINGUAL DIRECTED PRN 12/28/17 06/18/19 omeprazole 20 mg PO DAILY 12/28/17 06/18/19 citalopram 20 mg PO DAILY 03/19/19 06/18/19 gabapentin 300 mg PO TID 05/09/19 06/18/19 furosemide 20 mg PO DAILY 06/18/19 06/18/19 potassium chloride 20 meq PO DAILY 06/18/19 06/18/19 umeclidinium [Incruse Ellipta] 1 inh INHALATION DAILY 06/18/19 06/18/19 Previous Rx's Medication Instructions Recorded hydrocodone-acetaminophen 1 tab PO Q8H PRN 5 Days #15 tab 03/24/19 sennosides-docusate sodium 1 tabcap PO DAILY PRN #30 tab 05/13/19 [Senokot-S] Results & Data (ED) Vital Signs Vital Signs - 24 hr 06/18/19 02:36 06/18/19 02:40 06/18/19 02:43 Temperature 37.1 C Temperature Source Oral Pulse Rate 98 H 101 H 99 H Pulse Rate from SpO2 Sensor 101 H 100 H Respiratory Rate 33 H 20 22 Respiratory Effort / Characteristics Spontaneous Labored Respiratory Depth Deep Respiratory Pattern Tachypnea Blood Pressure 219/105 H 245/114 H Blood Pressure Mean 143 153 Blood Pressure Position Sitting Pulse Oximetry 62 L 100 100 Oxygen Delivery Method Room Air CPAP CPAP CPAP Oxygen Flow Rate 0 Fraction of Inspired Oxygen 100 100 Sepsis Recent Fever Within 48 Hours No Sepsis New/Unexplained Change in Mental Status No Sepsis Action Taken by Nursing No Action Required Pulse Oximetry Post Tiitration 100 06/18/19 02:45 06/18/19 02:48 06/18/19 02:50 Temperature Temperature Source Pulse Rate 98 H 117 H 95 H Pulse Rate from SpO2 Sensor 98 H 95 H Respiratory Rate 21 24 21 Respiratory Effort / Characteristics Spontaneous Labored Respiratory Depth Normal Respiratory Pattern Regular Blood Pressure 219/105 H Blood Pressure Mean 171 Blood Pressure Position Pulse Oximetry 100 100 100 Oxygen Delivery Method CPAP CPAP Oxygen Flow Rate Fraction of Inspired Oxygen 100 100 100 Sepsis Recent Fever Within 48 Hours Sepsis New/Unexplained Change in Mental Status Sepsis Action Taken by Nursing Pulse Oximetry Post Tiitration 06/18/19 02:53 06/18/19 02:55 06/18/19 02:56 Temperature Temperature Source Pulse Rate 95 H 91 H 96 H Pulse Rate from SpO2 Sensor 95 H 94 H 96 H Respiratory Rate 20 22 21 Respiratory Effort / Characteristics Respiratory Depth Respiratory Pattern Blood Pressure 181/116 H 179/85 H Blood Pressure Mean 141 136 Blood Pressure Position Pulse Oximetry 100 100 100 Oxygen Delivery Method CPAP CPAP CPAP Oxygen Flow Rate Fraction of Inspired Oxygen 100 100 100 Sepsis Recent Fever Within 48 Hours Sepsis New/Unexplained Change in Mental Status Sepsis Action Taken by Nursing Pulse Oximetry Post Tiitration 06/18/19 02:57 06/18/19 03:00 06/18/19 03:03 Temperature Temperature Source Pulse Rate 92 H 89 88 Pulse Rate from SpO2 Sensor 92 H 90 88 Respiratory Rate 17 19 19 Respiratory Effort / Characteristics Respiratory Depth Respiratory Pattern Blood Pressure 199/93 H 194/94 H 189/92 H Blood Pressure Mean 148 138 143 Blood Pressure Position Pulse Oximetry 100 100 100 Oxygen Delivery Method CPAP CPAP CPAP Oxygen Flow Rate Fraction of Inspired Oxygen 80 80 80 Sepsis Recent Fever Within 48 Hours Sepsis New/Unexplained Change in Mental Status Sepsis Action Taken by Nursing Pulse Oximetry Post Tiitration 06/18/19 03:05 06/18/19 03:08 06/18/19 03:10 Temperature Temperature Source Pulse Rate 87 90 89 Pulse Rate from SpO2 Sensor 87 88 90 Respiratory Rate 21 20 22 Respiratory Effort / Characteristics Respiratory Depth Respiratory Pattern Blood Pressure 176/87 H 157/81 H 158/68 H Blood Pressure Mean 123 111 85 Blood Pressure Position Pulse Oximetry 100 99 98 Oxygen Delivery Method CPAP CPAP CPAP Oxygen Flow Rate Fraction of Inspired Oxygen 80 80 80 Sepsis Recent Fever Within 48 Hours Sepsis New/Unexplained Change in Mental Status Sepsis Action Taken by Nursing Pulse Oximetry Post Tiitration 06/18/19 03:13 06/18/19 03:17 06/18/19 03:20 Temperature Temperature Source Pulse Rate 85 82 83 Pulse Rate from SpO2 Sensor 85 82 83 Respiratory Rate 24 19 16 Respiratory Effort / Characteristics Respiratory Depth Respiratory Pattern Blood Pressure 146/75 H 123/62 119/99 Blood Pressure Mean 94 83 103 Blood Pressure Position Pulse Oximetry 98 98 98 Oxygen Delivery Method CPAP Oxygen Flow Rate Fraction of Inspired Oxygen 80 80 80 Sepsis Recent Fever Within 48 Hours Sepsis New/Unexplained Change in Mental Status Sepsis Action Taken by Nursing Pulse Oximetry Post Tiitration 06/18/19 03:23 06/18/19 03:25 06/18/19 03:28 Temperature Temperature Source Pulse Rate 88 84 82 Pulse Rate from SpO2 Sensor 89 84 82 Respiratory Rate 17 18 18 Respiratory Effort / Characteristics Respiratory Depth Respiratory Pattern Blood Pressure 125/65 144/71 H 117/61 Blood Pressure Mean 85 107 74 Blood Pressure Position Pulse Oximetry 98 100 100 Oxygen Delivery Method Oxygen Flow Rate Fraction of Inspired Oxygen 80 80 80 Sepsis Recent Fever Within 48 Hours Sepsis New/Unexplained Change in Mental Status Sepsis Action Taken by Nursing Pulse Oximetry Post Tiitration 06/18/19 03:30 06/18/19 03:33 06/18/19 03:35 Temperature Temperature Source Pulse Rate 80 81 79 Pulse Rate from SpO2 Sensor 80 81 Respiratory Rate 18 22 17 Respiratory Effort / Characteristics Respiratory Depth Respiratory Pattern Blood Pressure 117/60 114/63 93/51 L Blood Pressure Mean 73 85 56 Blood Pressure Position Pulse Oximetry 100 100 99 Oxygen Delivery Method Oxygen Flow Rate Fraction of Inspired Oxygen 80 80 80 Sepsis Recent Fever Within 48 Hours Sepsis New/Unexplained Change in Mental Status Sepsis Action Taken by Nursing Pulse Oximetry Post Tiitration 06/18/19 03:36 06/18/19 03:37 06/18/19 03:40 Temperature Temperature Source Pulse Rate 79 78 77 Pulse Rate from SpO2 Sensor 79 79 78 Respiratory Rate 20 18 18 Respiratory Effort / Characteristics Respiratory Depth Respiratory Pattern Blood Pressure 98/50 L 88/55 L 106/51 L Blood Pressure Mean 60 61 65 Blood Pressure Position Pulse Oximetry 99 99 98 Oxygen Delivery Method Oxygen Flow Rate Fraction of Inspired Oxygen 80 80 60 Sepsis Recent Fever Within 48 Hours Sepsis New/Unexplained Change in Mental Status Sepsis Action Taken by Nursing Pulse Oximetry Post Tiitration 06/18/19 03:43 06/18/19 03:45 06/18/19 03:47 Temperature Temperature Source Pulse Rate 80 78 77 Pulse Rate from SpO2 Sensor 79 78 78 Respiratory Rate 20 18 18 Respiratory Effort / Characteristics Respiratory Depth Respiratory Pattern Blood Pressure 120/58 L 153/68 H 153/66 H Blood Pressure Mean 73 103 89 Blood Pressure Position Pulse Oximetry 93 97 97 Oxygen Delivery Method Oxygen Flow Rate Fraction of Inspired Oxygen 60 60 60 Sepsis Recent Fever Within 48 Hours Sepsis New/Unexplained Change in Mental Status Sepsis Action Taken by Nursing Pulse Oximetry Post Tiitration 06/18/19 03:50 06/18/19 03:53 06/18/19 03:55 Temperature Temperature Source Pulse Rate 77 76 79 Pulse Rate from SpO2 Sensor 77 76 79 Respiratory Rate 14 16 22 Respiratory Effort / Characteristics Respiratory Depth Respiratory Pattern Blood Pressure 150/69 H 139/62 149/72 H Blood Pressure Mean 98 77 93 Blood Pressure Position Pulse Oximetry 96 95 95 Oxygen Delivery Method CPAP CPAP Oxygen Flow Rate Fraction of Inspired Oxygen 60 60 60 Sepsis Recent Fever Within 48 Hours Sepsis New/Unexplained Change in Mental Status Sepsis Action Taken by Nursing Pulse Oximetry Post Tiitration 06/18/19 04:01 06/18/19 04:15 06/18/19 04:30 Temperature Temperature Source Pulse Rate 78 77 72 Pulse Rate from SpO2 Sensor 79 75 72 Respiratory Rate 24 17 16 Respiratory Effort / Characteristics Respiratory Depth Respiratory Pattern Blood Pressure 154/75 H 151/76 H 148/63 H Blood Pressure Mean 115 90 91 Blood Pressure Position Pulse Oximetry 98 99 98 Oxygen Delivery Method CPAP CPAP CPAP Oxygen Flow Rate Fraction of Inspired Oxygen 60 60 60 Sepsis Recent Fever Within 48 Hours Sepsis New/Unexplained Change in Mental Status Sepsis Action Taken by Nursing Pulse Oximetry Post Tiitration Home Medications Current Medication List: was personally reviewed by me Laboratory Data Attestation: I reviewed the patient's lab results. Result diagrams: 06/18/19 03:00 06/18/19 03:00 Lab Results 06/18/19 06/18/19 06/18/19 Range/Units 03:00 03:00 03:00 WBC 11.50 H (4.8-10.8) K/uL RBC 3.43 L (4.2-5.4) M/uL Hgb 10.2 L (12.0-16.0) g/dL Hct 33.0 L (37-47) % MCV 96.2 (80-100) fL MCH 29.7 (25-34) pg MCHC 30.9 L (32-36) g/dL RDW Std Deviation 66.3 H (36.4-46.3) fL RDW Coeff of Sriram 18.9 H (11.5-14.5) % Plt Count 327 (130-400) K/uL MPV 9.1 (7.4-10.4) fL Immature Gran % (Auto) 0.2 % Neut % (Auto) 79.3 % Lymph % (Auto) 9.8 % [place] % (Auto) 6.3 % Eos % (Auto) 3.9 % Baso % (Auto) 0.5 % Immature Gran # (Auto) 0.02 (0.00-0.02) K/uL Neut # (Auto) 9.12 H (1.4-6.5) K/uL Lymph # (Auto) 1.13 L (1.2-3.4) K/uL [place] # (Auto) 0.72 H (0.11-0.59) K/uL Eos # (Auto) 0.45 (0-0.5) K/uL Baso # (Auto) 0.06 (0-0.2) K/uL PT 11.2 (9.0-12.0) Seconds INR 1.1 (0.9-1.1) APTT 23.7 (21.0-31.0) Seconds PTT Ratio 0.8 VBG pH (7.36-7.41) VBG pCO2 (38-50) mmHg VBG pO2 mmHg VBG HCO3 mmol/L VBG O2 Saturation % VBG Base Excess mEq/L Barometric Pressure mm/Hg Sodium 135 L (136-145) mmol/L Potassium 3.8 (3.5-5.1) mmol/L Chloride 100 (98-107) mmol/L Carbon Dioxide 33 H (21-32) mmol/L Anion Gap 2.0 L (3-11) BUN 20 H (7-18) mg/dl Creatinine 1.29 H (0.6-1.2) mg/dl Est Cr Clr Drug Dosing 30.7 ml/min Est GFR ( Amer) 46.6 Est GFR (Non-Af Amer) 40.2 BUN/Creatinine Ratio 15.6 (10-20) Glucose 152 H (70-99) mg/dl Calcium 8.7 (8.5-10.1) mg/dl Phosphorus 4.8 (2.5-4.9) mg/dl Magnesium 2.1 (1.8-2.4) mg/dl Total Bilirubin 0.4 (0.2-1) mg/dl AST 12 L (15-37) U/L ALT 12 (12-78) U/L Alkaline Phosphatase 112 (45-117) U/L Troponin I < 0.015 (0-0.045) ng/ml NT-Pro-B Natriuret Pep 59683 H (0-1800) pg/ml Total Protein 7.6 (6.4-8.2) gm/dl Albumin 2.8 L (3.4-5.0) gm/dl Globulin 4.8 H (2.5-4.0) gm/dl Albumin/Globulin Ratio 0.6 L (0.9-2) 04// Range/Units 03:00 WBC (4.8-10.8) K/uL RBC (4.2-5.4) M/uL Hgb (12.0-16.0) g/dL Hct (37-47) % MCV (80-100) fL MCH (25-34) pg MCHC (32-36) g/dL RDW Std Deviation (36.4-46.3) fL RDW Coeff of Sriram (11.5-14.5) % Plt Count (130-400) K/uL MPV (7.4-10.4) fL Immature Gran % (Auto) % Neut % (Auto) % Lymph % (Auto) % [place] % (Auto) % Eos % (Auto) % Baso % (Auto) % Immature Gran # (Auto) (0.00-0.02) K/uL Neut # (Auto) (1.4-6.5) K/uL Lymph # (Auto) (1.2-3.4) K/uL [place] # (Auto) (0.11-0.59) K/uL Eos # (Auto) (0-0.5) K/uL Baso # (Auto) (0-0.2) K/uL PT (9.0-12.0) Seconds INR (0.9-1.1) APTT (21.0-31.0) Seconds PTT Ratio VBG pH 7.30 L (7.36-7.41) VBG pCO2 71 H (38-50) mmHg VBG pO2 21 mmHg VBG HCO3 34 mmol/L VBG O2 Saturation < 60.0 % VBG Base Excess 5.4 mEq/L Barometric Pressure 728.6 mm/Hg Sodium (136-145) mmol/L Potassium (3.5-5.1) mmol/L Chloride (98-107) mmol/L Carbon Dioxide (21-32) mmol/L Anion Gap (3-11) BUN (7-18) mg/dl Creatinine (0.6-1.2) mg/dl Est Cr Clr Drug Dosing ml/min Est GFR ( Amer) Est GFR (Non-Af Amer) BUN/Creatinine Ratio (10-20) Glucose (70-99) mg/dl Calcium (8.5-10.1) mg/dl Phosphorus (2.5-4.9) mg/dl Magnesium (1.8-2.4) mg/dl Total Bilirubin (0.2-1) mg/dl AST (15-37) U/L ALT (12-78) U/L Alkaline Phosphatase (45-117) U/L Troponin I (0-0.045) ng/ml NT-Pro-B Natriuret Pep (0-1800) pg/ml Total Protein (6.4-8.2) gm/dl Albumin (3.4-5.0) gm/dl Globulin (2.5-4.0) gm/dl Albumin/Globulin Ratio (0.9-2) Administered Medications Discontinued Medications Furosemide (Lasix) 40 mg IV NOW STA Stop: 06/18/19 02:50 Last Admin: 06/18/19 03:00 Dose: 40 mg Documented by: [id number] Nitroglycerin/Dextrose (Nitroglycerin/D5w 100 Mcg/Ml) 250 mls @ 3 mls/hr IV .Q24H [facility]; Protocol Stop: 07/18/19 02:59 Last Titration: 06/18/19 06:16 Dose: 0 mcg/min, 0 mls/hr Documented by: [id number] Titration: 06/18/19 03:39 Dose: 0 mcg/min, 0 mls/hr Documented by: [id number] Titration: 06/18/19 03:37 Dose: 10 mcg/min, 6 mls/hr Documented by: [id number] Titration: 06/18/19 03:15 Dose: 20 mcg/min, 12 mls/hr Documented by: [id number] Titration: 06/18/19 03:06 Dose: 40 mcg/min, 24 mls/hr Documented by: [id number] Admin: 06/18/19 02:54 Dose: 5 mcg/min, 3 mls/hr Documented by: [id number] Cosigned by: [id number] Miscellaneous () 1 ea N/A NOW STA Stop: 06/18/19 02:50 Last Admin: 06/18/19 02:55 Dose: Not Given Documented by: [id number] Nitroglycerin/Dextrose (Nitroglycerin/D5w 100 Mcg/Ml) Confirm Administered Dose 25 mg .ROUTE .STK-MED ONE Stop: 06/18/19 02:50 Last Admin: 06/18/19 02:56 Dose: Not Given Documented by: [id number] Blood Pressure Blood Pressure Findings: Elevated blood pressure Blood Pressure Disposition: further management by hospitalist Discharge Plan Visit Data *Final* Discharge Date/Time: 06/18/19 05:30 Chief Complaint: Shortness of Breath/Dyspnea Stated Complaint: SHORT OF BREATH ED Provider: Harman Oneill Discharge Problem: Acute on chronic respiratory failure with hypoxia and hypercapnia, Anemia, Acute exacerbation of CHF (congestive heart failure), Hypertensive emergency Patient Disposition: Admitted As Inpatient Discharge Instructions Interventions: ED Discharge Assessment Last Done: 06/18/19 05:30 Discharge Problem: Anemia Qualifiers: Anemia type: unspecified type Qualified Code(s): D64.9 - Anemia, unspecified Acute exacerbation of CHF (congestive heart failure) Qualifiers: Heart failure type: unspecified Qualified Code(s): I50.9 - Heart failure, unspecified
[2019-06-18] MEDS ORDERED: NITROGLYCERIN/D5W 100MCG/ML 250 ML IV SCH (03:00)
[2019-06-18 03:10] LABS: Basophils # (auto) 0.06 K/uL (0-0.2); Basophils % (auto) 0.5 %; Eosinophils # (auto) 0.45 K/uL (0-0.5); Eosinophils % (auto) 3.9 %; Hemoglobin 10.2 g/dL (12.0-16.0); Immature Granulocytes # (auto) 0.02 K/uL (0.00-0.02); Immature Granulocytes % (auto) 0.2 %; Lymphocytes # (auto) 1.13 K/uL (1.2-3.4); Lymphocytes % (auto) 9.8 %; Mean Corpuscular Hemoglobin 29.7 pg (25-34); Mean Corpuscular Hgb Conc 30.9 g/dL (32-36); Mean Corpuscular Volume 96.2 fL (80-100); Mean Platelet Volume 9.1 fL (7.4-10.4); Monocytes # (auto) 0.72 K/uL (0.11-0.59); Monocytes % (auto) 6.3 %; Neutrophils # (auto) 9.12 K/uL (1.4-6.5); Neutrophils % (auto) 79.3 %; Platelet Count 327 K/uL (130-400); RDW Coefficient of Variation 18.9 % (11.5-14.5); RDW Standard Deviation 66.3 fL (36.4-46.3); Red Blood Count 3.43 M/uL (4.2-5.4)
[2019-06-18 03:20] LABS: INR 1.1 (0.9-1.1); Partial Thromboplastin Ratio 0.8; Partial Thromboplastin Time 23.7 Seconds (21.0-31.0); Prothrombin Time 11.2 Seconds (9.0-12.0)
[2019-06-18 03:26] LABS: Base Excess VBG 5.4 mEq/L; HCO3 VBG 34 mmol/L; Oxygen Saturation VBG < 60.0 %; PCO2 VBG 71 mmHg (38-50); PO2 VBG 21 mmHg
[2019-06-18 03:27] LABS: Alanine Aminotransferase 12 U/L (12-78); Albumin Level 2.8 gm/dl (3.4-5.0); Aspartate Aminotransferase 12 U/L (15-37); BUN Creatinine Ratio 15.6 (10-20); Blood Urea Nitrogen 20 mg/dl (7-18); Calcium 8.7 mg/dl (8.5-10.1); Carbon Dioxide 33 mmol/L (21-32); Chloride 100 mmol/L (98-107); Creatinine Clr Calc Pharmacy 30.7 ml/min; Est GFR (African American) 46.6; Est GFR (Non-African American) 40.2; Glucose 152 mg/dl (70-99); Magnesium 2.1 mg/dl (1.8-2.4); Potassium 3.8 mmol/L (3.5-5.1); Sodium 135 mmol/L (136-145)
[2019-06-18 03:32] LABS: Albumin Globulin Ratio 0.6 (0.9-2); Alkaline Phosphatase 112 U/L (45-117); Bilirubin,Total 0.4 mg/dl (0.2-1); Globulin 4.8 gm/dl (2.5-4.0); NT Pro B Type Natriuretic Pept 10533 pg/ml (0-1800); Phosphorus 4.8 mg/dl (2.5-4.9); Total Protein 7.6 gm/dl (6.4-8.2); Troponin I < 0.015 ng/ml (0-0.045)
[2019-06-18] MEDS ORDERED: IPRATROPIUM BROMIDE NEB SOLN 0.02% 2.5 ML VIAL INH PRN (06:03)
[2019-06-18] MEDS ORDERED: FLUTICASONE PROPIONATE NA SPR 16 GM BTL PRN (06:03)
[2019-06-18] MEDS ORDERED: XOPENEX/ATROVENT 1.25mg/0.5MG NEB COMBO NEB PRN (06:03)
[2019-06-18] MEDS ORDERED: DOCUSATE SODIUM/SENNA 50/8.6MG TAB PO PRN (06:03)
[2019-06-18] MEDS ORDERED: POLYETHYLENE (MIRALAX) 17 GM PACK PO PRN (06:03)
[2019-06-18] MEDS ORDERED: ACETAMINOPHEN 325 MG TAB PO PRN (06:03)
[2019-06-18] MEDS ORDERED: ALBUTEROL HFA 8 GM INHALER INH PRN (06:03)
[2019-06-18] MEDS ORDERED: ONDANSETRON INJ 2 MG/ML 2 ML VIAL IV PRN (06:03)
[2019-06-18] MEDS ORDERED: NITROGLYCERIN SL 0.4 MG/TAB TAB SL PRN ×2 (06:03)
[2019-06-18] MEDS ORDERED: LEVALBUTEROL 1.25MG/0.5ML NEB INH PRN (06:03)
--- NOTE | 2019-06-18 06:32 | History and Physical Report ---
DATE OF ADMISSION: 06/18/2019 CHIEF COMPLAINT: Respiratory distress and acute shortness of breath. HISTORY OF PRESENT ILLNESS: A 74-year-old female with past medical history significant for COPD and chronic respiratory failure on 3-4 liters oxygen, nonobstructive CAD and catheterization in 2010, peripheral artery disease, CVA, chronic diastolic CHF, hypertension, chronic kidney disease stage III, chronic hip pain, history of tobacco use, protein-calorie malnutrition, iron deficiency anemia, depression, history of sleep apnea, who presents with acute shortness of breath. The patient says suddenly in the middle of the night she woke up with shortness of breath and she could not breathe and she also had cough and she brought up some blood-filled sputum and EMS was called and when EMS arrived, she was saturating at 70%. She was placed on CPAP and was brought in here. Initially, her systolic blood pressure was also high and she was started on nitro drip which is tapered off currently, . CXR showed acute CHF and she was placed on Andrade catheter and given a dose of Lasix. Currently, she is resting comfortably. She is feeling better. Denies any headache. No blurred visions, no earache, no runny nose, no sore throat, no difficulty swallowing. Appetite is okay. Denies any chest pain. No nausea, no vomiting, no abdominal pain. Normal bowel and bladder movements. She says she has some swelling in the legs, but that is chronic. She lives alone. She is wheelchair bound, but she can transfer to the wheelchair. She has 3 daughters, who live close by. Called her daughter and daughter says she has aides to come and help her at home in the morning. No travel history. No sick contacts. When asked about whether she has any loss of smell or taste, she states this she does not know. The patient is DNR/DNI as per my discussion with the daughter. ALLERGIES: CIPROFLOXACIN, AZITHROMYCIN, NITRATE ANALOGUES, NITROFURANTOIN, PNEUMOCOCCAL VACCINE, AND FLU VACCINE. PAST MEDICAL HISTORY: As mentioned above. PAST SURGICAL HISTORY: Colonoscopy, left heart catheterization, cystoscopy, EGDs with endoscopic ultrasound, ERCP, laparoscopic cholecystectomy, appendectomy, total hysterectomy, repair of ventral hernia. MEDICATIONS: The patient is currently on Plavix 75 mg p.o. daily, Lasix 20 mg p.o. daily, hydrocodone/acetaminophen 5/325 mg one tablet p.o. t.i.d. p.r.n., nicotine patch daily, potassium chloride 20 mEq p.o. daily, trazodone 50 mg p.o. at bedtime, Senokot S 1 tablet p.o. b.i.d., citalopram 20 mg p.o. daily, folic acid 1 mg p.o. daily, omeprazole 20 mg p.o. daily, atorvastatin 20 mg p.o. daily, gabapentin 300 mg p.o. t.i.d., Toprol-XL 12.5 mg p.o. b.i.d., nitroglycerin 0.4 mg sublingual p.r.n., Incruse Ellipta 62.5 mcg 1 puff inhalation daily, Flonase 2 sprays into each nostril daily p.r.n., Ventolin 2 puffs q. 6 hours p.r.n., Colace 100 mg p.o. b.i.d., ferrous sulfate 325 mg p.o. b.i.d., DuoNebs q. 6 hours p.r.n., oxygen 3-4 liters all the time, aspirin 81 mg p.o. daily. FAMILY HISTORY: Significant for father has diabetes, stroke; mother had heart disorder and stroke; brother had DC, at age of 58. SOCIAL HISTORY: Currently lives alone, . Smoked an average of 1.5 packs a day for 60 years. Alcohol, drinks a glass of wine a night. No drug use. REVIEW OF SYSTEMS: As per HPI. Rest of the review of systems negative. PHYSICAL EXAMINATION: GENERAL: The patient is old and frail, not in acute distress currently. VITAL SIGNS: Temperature 37.1, pulse 76, respiratory rate 13, blood pressure 159/76, oxygen currently 98% on CPAP. HEENT: No pallor, no icterus. Pupils equal, round, reactive to light. NECK: No JVD, no neck masses. CARDIOVASCULAR: S1, S2 heard, regular rate and rhythm, no murmur, no gallop. RESPIRATORY SYSTEM: Normal AP diameter. No accessory muscle use. Bilateral diminished breath sounds and occasional wheezing. ABDOMEN: Soft, bowel sounds present, nontender. No distention. CENTRAL NERVOUS SYSTEM: Alert and awake. Obeys simple commands. Insight good. Moves extremities. EXTREMITIES: Mild bilateral lower extremity pedal edema present. LABORATORY DATA: WBC 11.5, hemoglobin 10.2, hematocrit 33, platelets 327. PT 11.2, INR 1.1, APTT 23.7. Venous blood gases, pH of 7.3, pCO2 of 71, VpO2 of 21, bicarbonate 34. Sodium 135, potassium 3.8, chloride 100, bicarbonate 33, BUN 20, creatinine 1.29, serum glucose 152, calcium 8.7, phosphorus 4.8, magnesium 2.1, total bilirubin 0.4, AST 12, ALT 12, alkaline phosphatase 112. Troponin I less than 0.015. BNP 10,533. IMAGING DATA: Chest x-ray, bilateral pulmonary congestion. EKG: Sinus tachycardia at a rate of 102, nonspecific ST-T abnormalities. ASSESSMENT AND PLAN: This is a 74-year-old female who presents with acute shortness hypoxic and hypercarbic respiratory failure. 1. [id number] respiratory failure secondary to acute diastolic congestive heart failure. Received a dose of IV Lasix and placed on Andrade catheter, on CPAP currently, saturating okay. We will continue CPAP for now. Last admission, Lasix was changed to 40 mg daily, but seems she does take only 20 mg daily at home. We will currently place on IV Lasix 40 daily. Follow serial cardiac enzymes. She had an echocardiogram recently in April 2019, which showed EF of 55% to 60%, moderately dilated left atrium, mild mitral regurgitation, mild tricuspid regurgitation, pulmonary artery systolic pressure was 60-70 mmHg, grade 2 diastolic dysfunction. We will consult cardiology for further recommendation and optimization of her medications. Closely monitor on the tele floor. Once she is better, we will taper off the CPAP to her home oxygen, which she is on 3-4 liters continuously.Her bloody sputum mostly from CHF but empirically will start on Rocephin and doxycycline and get cultures. 2 Chronic obstructive pulmonary disease, currently does not seem to be in exacerbation. Continue her home inhalers and home oxygen. 3. Hypertension. Continue home medication of metoprolol. Blood pressure was high when she came in, she was started on nitro drip in the ER which she tapered off. We will monitor the blood pressure. 4. Iron deficiency anemia. Her hemoglobin is stable at 10.2. We will follow the labs. 5. Chronic kidney disease stage III. Baseline creatinine around 1.2, current creatinine 1.2. We will follow the labs. 6. History of cerebrovascular accident, on aspirin, Plavix and statin. 7. History of nonobstructive coronary artery disease, currently asymptomatic, on beta rasta, Plavix, aspirin, and statin. 8. Chronic hip pain. Continue gabapentin and hydrocodone. 9. Depression. Continue citalopram. 10. History of tobacco abuse, needs counseling. 11. Deep venous thrombosis prophylaxis, placed on sequential compression devices for now. 12. Code status. When discussed with the patient, she says to ask her daughter. When checked with the daughter, she is DNR/DNI. DISPOSITION: Admit to tele floor. PT and OT prior to discharge. Expect to discharge home and follow with her family doctor. Social service to help with discharge planning. HAZEL
[2019-06-18] MEDS: CITALOPRAM 20 MG TAB PO SCH (08:08)
[2019-06-18] MEDS: PANTOprazole 40 MG TAB PO SCH (08:08)
[2019-06-18] MEDS: CLOPIDOGREL BISULFATE 75 MG TAB PO SCH (08:08)
[2019-06-18] MEDS: POTASSIUM CHLORIDE 20 MEQ TABCR PO SCH ×2 (08:08→10:43)
[2019-06-18] MEDS: ATORVASTATIN 20 MG TAB PO SCH (08:08)
[2019-06-18] MEDS: UMECLIDINIUM BROMIDE 62.5MCG/BLISTER 7 PUFFS/INHALER INH SCH (08:09)
[2019-06-18] MEDS: METOPROLOL SUCC 25MG EXT REL TAB PO SCH ×2 (08:09→19:47)
[2019-06-18] MEDS: GABAPENTIN 300 MG CAP PO SCH ×3 (08:09→19:46)
[2019-06-18] MEDS: FOLIC ACID 1 MG TAB PO SCH (08:09)
[2019-06-18] MEDS: FUROSEMIDE 40 MG in SYRINGE 0 ML IV SCH (08:12)
--- NOTE | 2019-06-18 08:28 | XRay Report ---
XR chest 1V portable CLINICAL HISTORY: Dyspnea COMPARISON STUDY: Chest radiograph May 18, 2019. FINDINGS: Calcified right paratracheal lymph node is noted. There is moderate cardiomegaly with small bilateral pleural effusions. No pneumothorax is noted. Diffuse interstitial thickening has increased since exam of May 18, 2019. Right lung airspace opacity has developed. Bibasilar opacities are als o present. IMPRESSION: 1. Interval increase in moderate pulmonary edema. Small bilateral pleural effusions with bibasilar op acities. 2. Interval development of right lung airspace opacity which likely reflects asymmetric alveolar arin a however superimposed pneumonia could appear similar. ACT 112: Negative or not required by law. Electronically signed by: Jonathan Kim M.D. 06/18/2019 8:27 AM
[2019-06-18] MEDS ORDERED: FUROSEMIDE 40 MG/4 ML VIAL IV SCH (09:00)
[2019-06-18] MEDS ORDERED: Heparin IV Low Dose *NO* Bolus IV SCH (09:23)
[2019-06-18] MEDS ORDERED: HEPARIN SODIUM/DEXTROSE 25,000 UNITS/500 ML BAG IV SCH (09:30)
[2019-06-18] MEDS: ASPIRIN 81 MG ECTAB PO SCH (10:40)
[2019-06-18] MEDS: POTASSIUM CHLORIDE 20 MEQ/15 ML UDC PO SCH (11:37)
--- NOTE | 2019-06-18 12:12 | Electrocardiogram Report ---
Test Reason : Blood Pressure : / mmHG Vent. Rate : 102 BPM Atrial Rate : 102 BPM P-R Int : 198 ms QRS Dur : 082 ms QT Int : 352 ms P-R-T Axes : 073 070 056 degrees QTc Int : 458 ms Sinus tachycardia Possible Left atrial enlargement Nonspecific ST and T wave abnormality Abnormal ECG When compared with ECG of 23-MAY-2019 18:26, Vent. rate has increased BY 42 BPM Nonspecific T wave abnormality no longer evident in Inferior leads T wave inversion no longer evident in Anterior leads T wave inversion now evident in Lateral leads Confirmed by Bertrand Crandall ([id number]) on 06/18/2019 12:11:55 PM Referred By: REFERRED SELF Confirmed By:Thomas Crandall
[2019-06-18 14:56] LABS: Partial Thromboplastin Ratio 1.3; Partial Thromboplastin Time 35.6 Seconds (21.0-31.0)
--- NOTE | 2019-06-18 16:28 | Cardiology Consultation ---
Date of Consultation June 18, 2019 Assessment & Plan (1) Acute on chronic diastolic (congestive) heart failure: Patient has a history of multifactorial shortness of breath including underlying COPD. Chest x-ray performed in the emergency room revealed interval increase in moderate pulmonary edema, as well as small pleural effusions. Echocardiogram performed last month revealed normal LVEF at 55 to 60%, moderate left atrial dilatation, mild mitral regurgitation, mild tricuspid regurgitation, and severe pulmonary hypertension, the estimated pulmonary artery systolic pressure was 60 to 70 mmHg at that time with noted grade 2 diastolic dysfunction. She has a mild, but flat troponin elevation, which I think is consistent with myocardial strain in the setting of hypertension and acute volume overload. She denies any recent anginal symptoms. She is already on chronic dual antiplatelet therapy with aspirin and clopidogrel, presumably for her peripheral arterial disease. Hemoglobin is improved compared to last admission. Repeat EKG tomorrow. Continue current dose of IV furosemide. (2) COPD (chronic obstructive pulmonary disease): History of Present Illness Reason for Consultation: Acute CHF Requesting Physician: Dr Rodriguez Attending Physician: Dano Wolff MD History of Present Illness Jennifer Negrete is a 74-year-old female seen in cardiology consultation for the evaluation of shortness of breath, suspicion of acute on chronic systolic heart failure. The patient is well-known to the undersigned, as they have seen her in previous hospital stays, most recently about a month ago. She notes that she has been adhering to her medications, she has been watched closely by her daughters. The evening of the admission, she had abrupt onset of significant shortness of breath, as well as production of red sputum. She was hypertensive on arrival with blood pressure of 219/105, and she was in respiratory distress. Symptoms subsequently improved with administration of IV furosemide. Patient was seen and examined by the undersigned 11:45 AM on 06/18/2019, at that time she was in room 242-1 and was enjoying her lunch, with no complaints. She notes no recent exertional chest pain. Telemetry reveals stable sinus rhythm in the 60 to 80 bpm range. PAST CARDIAC / VASCULAR HISTORY: Nonobstructive coronary artery disease based on cardiac catheterization in 2010 Apparent long-standing history of peripheral arterial disease, will documented on vascular surgery note in her [facility] chart from [facility] vascular surgery dated 07/03/17 -Placement of a stent in the right distal and right external iliac arteries at the [facility] [place] [address] Gómez -100% occlusion of the left superficial femoral artery and disease in the left femoral-popliteal artery, and amenable to revascularization percutaneously -Stroke in 2000, presumably due to shaggy atheromatous aortic disease -Moderate bilateral carotid disease in the range of 50-69%, 2017 duplex -Documented history of past findings of left subclavian stenosis with asympt omatic left subclavian steal syndrome Avascular necrosis of the hip noted on CT in May 2016 Ongoing cigarette smoking Allergies Allergy/AdvReac Type Severity Reaction Status Date / Time ciprofloxacin Allergy Mild ITCHY Verified 06/18/19 03:45 azithromycin Allergy Unknown Unknown Verified 06/18/19 03:45 Nitrate Analogues Allergy Unknown UNSURE; Verified 06/18/19 03:45 BUT PATIENT TAKES NITROSTAT PER ADMIT MED REC. nitrofurantoin Allergy Unknown UNSURE Verified 06/18/19 03:45 pneumococcal vaccine Allergy Unknown unk Verified 06/18/19 03:45 Influenza Virus Vaccines AdvReac Mild HIVES ON Verified 06/18/19 03:45 THE SITE Home Medications Home Medications Medication Instructions Recorded Confirmed Type albuterol sulfate [Ventolin HFA] 2 puff INHALATION QID PRN 12/28/17 06/18/19 History aspirin 81 mg PO DAILY 12/28/17 06/18/19 History atorvastatin 20 mg PO DAILY 12/28/17 06/18/19 History clopidogrel 75 mg PO DAILY 12/28/17 06/18/19 History fluticasone propionate 2 spray INTRANASAL DAILY PRN 12/28/17 06/18/19 History folic acid 1 mg PO DAILY 12/28/17 06/18/19 History metoprolol succinate 12.5 mg PO BID 12/28/17 06/18/19 History nitroglycerin 0.4 mg SUBLINGUAL DIRECTED PRN 12/28/17 06/18/19 History omeprazole 20 mg PO DAILY 12/28/17 06/18/19 History citalopram 20 mg PO DAILY 03/19/19 06/18/19 History hydrocodone-acetaminophen 1 tab PO Q8H PRN 5 Days #15 tab 03/24/19 06/18/19 Rx gabapentin 300 mg PO TID 05/09/19 06/18/19 History sennosides-docusate sodium 1 tabcap PO DAILY PRN #30 tab 05/13/19 06/18/19 Rx [Senokot-S] furosemide 20 mg PO DAILY 06/18/19 06/18/19 History potassium chloride 20 meq PO DAILY 06/18/19 06/18/19 History umeclidinium [Incruse Ellipta] 1 inh INHALATION DAILY 06/18/19 06/18/19 History Patient History Medical History Avascular necrosis (Chronic) CAD (coronary artery disease) (Chronic) Cardiac cath 2010-nonobstructive disease Carotid stenosis (Chronic) Chronic hip pain Chronic respiratory failure with hypoxia (Chronic) CKD (chronic kidney disease), stage III COPD (chronic obstructive pulmonary disease) (Chronic) CVA (cerebral vascular accident) (Chronic) Depression (Chronic) Diastolic CHF (Chronic) Dyslipidemia (Chronic) Hip pain, right (Chronic) HTN (hypertension) Hypertension (Chronic) DAYNA (iron deficiency anemia) (Chronic) IPMN (intraductal papillary mucinous neoplasm) (Chronic) Lumbar back pain (Chronic) PAD (peripheral artery disease) (Chronic) S/P stenting of the right distal common and right external iliac arteries Pancreatic duct stricture (Chronic) S/P stent Recurrent pancreatitis (Chronic) Sleep apnea (Chronic) Tobacco use disorder (Chronic) Surgical History H/O ventral hernia repair (Chronic) History of appendectomy (Chronic) History of cholecystectomy (Chronic) History of hysterectomy (Chronic) Family History Mother Stroke Father Stroke Social History Preferred Language: Swedish Communication Ability: Effective Visual Impairment: No Limitations Supervisor Carpenters Required: No Beliefs That Will Affect Care: None marital status: / Current Living Situation: Alone Current Living Situation Comment: Caregivers 9a-5p daily x 40hrs/wk Other Information That Helps Us Care for You: No Feels Safe at Home: Yes Safety Concerns: Feels Safe At This Time Smoking Status: Former smoker Tobacco Type: cigarettes ; Cigarettes Per Day: 20 ; Do You Dip or Chew Tobacco: No ; Smoking End Date: 02/26/2019 ; Second Hand Exposure: No ; Tobacco Cessation Education Requested by Patient: No Hx Alcohol Use: Yes Alcohol type: wine Hx Substance Use: No Review of Systems Review of Systems: All systems reviewed & are unremarkable except as noted in HPI & below Physical Exam 2 Physical Exam: Temp Pulse Resp BP Pulse Ox 36.7 C 59 L 18 163/67 H 100 06/18/19 15:21 06/18/19 15:50 06/18/19 15:50 06/18/19 15:21 06/18/19 15:50 Constitutional: WD/WN, vitals as above Respiratory: Mildly decreased breath sounds in the bases Cardiovascular: RRR, no murmur, no edema Gastrointestinal (Abdomen): normal bowel sounds, soft, nontender, no hepatosplenomegaly Neurologic: PERRL, EOMI, accommodation nl, no face palsy, no dysarthria Results & Data ([facility] [place]) Vital Signs (Past 12 Hours) Vital Signs Temp Pulse Pulse Resp BP BP Pulse Ox 06/18/19 15:50 59 L 18 100 06/18/19 15:21 36.7 C 64 16 163/67 H 93 06/18/19 11:58 36.6 C 75 18 169/64 H 96 06/18/19 08:00 75 06/18/19 07:56 36.5 C 65 18 169/79 H 95 06/18/19 06:25 71 06/18/19 06:01 76 22 95 06/18/19 05:50 37.2 C 75 22 164/78 H 97 06/18/19 05:15 71 14 154/68 H 99 06/18/19 05:10 72 14 154/68 H 99 06/18/19 05:00 75 13 167/76 H 100 06/18/19 04:50 76 15 98 06/18/19 04:45 76 13 159/76 H 98 06/18/19 04:30 72 16 148/63 H 98 Laboratory Results Cardiac Enzymes 06/18/19 06/18/19 06/18/19 Range/Units 03:00 06:26 11:49 AST 12 L (15-37) U/L Troponin I < 0.015 0.161 H* 0.230 H* (0-0.045) ng/ml Coagulation 06/18/19 06/18/19 Range/Units 03:00 14:39 PT 11.2 (9.0-12.0) Seconds APTT 23.7 35.6 H (21.0-31.0) Seconds CBC 06/18/19 Range/Units 03:00 WBC 11.50 H (4.8-10.8) K/uL RBC 3.43 L (4.2-5.4) M/uL Hgb 10.2 L (12.0-16.0) g/dL Hct 33.0 L (37-47) % Plt Count 327 (130-400) K/uL Neut # (Auto) 9.12 H (1.4-6.5) K/uL Lymph # (Auto) 1.13 L (1.2-3.4) K/uL Gray # (Auto) 0.72 H (0.11-0.59) K/uL Eos # (Auto) 0.45 (0-0.5) K/uL Baso # (Auto) 0.06 (0-0.2) K/uL Comprehensive Metabolic Panel 06/18/19 Range/Units 03:00 Sodium 135 L (136-145) mmol/L Potassium 3.8 (3.5-5.1) mmol/L Chloride 100 (98-107) mmol/L Carbon Dioxide 33 H (21-32) mmol/L BUN 20 H (7-18) mg/dl Creatinine 1.29 H (0.6-1.2) mg/dl Glucose 152 H (70-99) mg/dl Calcium 8.7 (8.5-10.1) mg/dl AST 12 L (15-37) U/L ALT 12 (12-78) U/L Alkaline Phosphatase 112 (45-117) U/L Total Protein 7.6 (6.4-8.2) gm/dl Albumin 2.8 L (3.4-5.0) gm/dl Intake and Output 06/18/19 06/18/19 06/18/19 06:59 14:59 22:59 Intake Total 250.0 / 250.0 311.8 / 311.8 Output Total 500 / 500 900 / 900 Balance -250.0 / -250.0 -588.2 / -588.2 Intake: IV 250.0 / 250.0 11.8 / 11.8 HEPARIN SODIUM/DEXTROSE 25,000 11.8 / 11.8 units In 500 ml @ 600 UNITS/HR 12 mls/hr IV .Q24H [facility] Rx#: [id number] NITROGLYCERIN/D5w 100 Mcg/Ml 250.0 / 250.0 250 ML @ 5 MCG/MIN 3 mls/hr IV .Q24H [facility] Rx#:[id number] Oral 300 / 300 Output: Urine 900 / 900 Urine Amount (Catheter) 500 / 500 Andrade/Indwelling 500 / 500 Other: Weight 51.9 kg Diagnostic Findings EKG performed 06/18/2019 2:42 AM revealed sinus tachycardia 102 bpm, subtle ST segment depression noted in the lateral leads however not significantly changed compared to 05/23/2019. Medications Administered Current Inpatient Medications Acetaminophen (Tylenol) 650 mg PO Q4H PRN PRN Reason: Pain or Fever Stop: 07/18/19 06:02 Hydrocodone Bitart/Acetaminophen ([place] 5/325) 1 tab PO Q8H PRN PRN Reason: Pain Stop: 07/02/19 06:02 Albuterol (Ventolin Hfa) 2 puffs INH QID PRN; Protocol PRN Reason: Shortness Of Breath Or Wheezin Stop: 07/18/19 06:02 Aspirin (Ecotrin Ectab) 81 mg PO DAILY [facility] Stop: 07/18/19 08:59 Last Admin: 06/18/19 10:40 Dose: 81 mg Documented by: Atorvastatin Calcium (Lipitor) 20 mg PO DAILY [facility] Stop: 07/18/19 08:59 Last Admin: 06/18/19 08:08 Dose: 20 mg Documented by: Citalopram Hydrobromide (Celexa) 20 mg PO DAILY [facility] Stop: 07/18/19 08:59 Last Admin: 06/18/19 08:08 Dose: 20 mg Documented by: Clopidogrel Bisulfate (Plavix) 75 mg PO DAILY [facility] Stop: 07/18/19 08:59 Last Admin: 06/18/19 08:08 Dose: 75 mg Documented by: Fluticasone Propionate (Flonase) 2 sprays NA DAILY PRN PRN Reason: Nasal Congestion Stop: 07/18/19 06:02 Folic Acid (Folvite) 1 mg PO DAILY [facility] Stop: 07/18/19 08:59 Last Admin: 06/18/19 08:09 Dose: 1 mg Documented by: Gabapentin (Neurontin) 300 mg PO TID [facility] Stop: 07/18/19 08:59 Last Admin: 06/18/19 13:16 Dose: Not Given Documented by: Furosemide 40 mg/ Syringe 4 mls @ 4 mls/min IV DAILY [facility] Stop: 07/18/19 08:59 Last Admin: 06/18/19 08:12 Dose: 4 mls/min Documented by: Heparin Sodium/Dextrose (Heparin Sodium/Dextrose) 25,000 units in 500 mls @ 12 mls/hr IV .Q24H [facility]; Protocol Stop: 07/18/19 09:29 Last Titration: 06/18/19 11:22 Dose: 600 units/hr, 12 mls/hr Documented by: Ipratropium [place] (Atrovent 0.02% 0.5mg/2.5ml) 0.5 mg INH Q4H PRN PRN Reason: Shortness Of Breath Or Wheezing Stop: 07/18/19 06:02 Levalbuterol HCl (Xopenex 1.25mg/0.5ml Neb) 1.25 mg INH Q4H PRN PRN Reason: Shortness Of Breath Or Wheezing Stop: 07/18/19 06:02 Metoprolol Succinate (Toprol Xl) 12.5 mg PO BID [facility] Stop: 07/18/19 08:59 Last Admin: 06/18/19 08:09 Dose: 12.5 mg Documented by: Nitroglycerin (Nitrostat) 0.4 mg SL UD PRN PRN Reason: Chest Pain Stop: 07/18/19 06:02 Ondansetron HCl (Zofran) 4 mg IV Q6H PRN PRN Reason: Nausea Stop: 07/18/19 06:02 Pantoprazole Sodium (Protonix) 40 mg PO DAILY [facility] Stop: 07/18/19 08:59 Last Admin: 06/18/19 08:08 Dose: 40 mg Documented by: Polyethylene Glycol (Miralax Powder Packet) 17 gm PO DAILY PRN PRN Reason: Constipation Stop: 07/18/19 06:02 Potassium Chloride (Lory Ciel Elix) 20 meq PO QAM [facility] Stop: 07/18/19 10:44 Last Admin: 06/18/19 11:37 Dose: 20 meq Documented by: Senna/Docusate Sodium (Senokot S) 1 tab PO DAILY PRN PRN Reason: constipation Stop: 07/18/19 06:02 Umeclidinium [place] (Incruse Ellipta) 1 puffs INH DAILY [facility] Stop: 07/18/19 08:59 Last Admin: 06/18/19 08:09 Dose: 1 puffs Documented by: (1) COPD (chronic obstructive pulmonary disease) COPD type: unspecified COPD Qualified Code(s): J44.9 - Chronic obstructive pulmonary disease, unspecified
[2019-06-18 17:08] LABS: BUN Creatinine Ratio 16.9 (10-20); Calcium 8.1 mg/dl (8.5-10.1); Creatinine Clr Calc Pharmacy 29.5 ml/min; Est GFR (African American) 44.9; Est GFR (Non-African American) 38.7; Magnesium 2.2 mg/dl (1.8-2.4); Potassium 3.4 mmol/L (3.5-5.1)
[2019-06-18] MEDS ORDERED: POTASSIUM CHLORIDE 20 MEQ/15 ML UDC PO STA (17:40)
--- NOTE | 2019-06-18 17:47 | Hospitalist Progress Note ---
Date of Service June 18, 2019 Assessment & Plan Admission and Anticipated Discharge Date Admission Date: June 18, 2019 Subjective Patient sitting up in bed, appears comfortable. Currently on nasal cannula, 5 L. She is off BiPAP at this moment. She is able to speak in full sentences. Denies any chest pain or palpitations, reports shortness of breath that brought her to the hospital. Currently breathing comfortably. Troponin however elevated this morning at 0.16. Started patient on IV heparin. Contacted cardiology for further assistance. Patient received 40 IV Lasix in the ED, and 40 IV Lasix daily ordered by photoengraving supervisor/admitting physician. Patient is alert and oriented, speech is fluent, no facial asymmetry, moves all extremities spontaneously. Heart sounds regular, no murmur noted. No s ignificant lower extremity edema. Lung sounds are mildly decreased, with diffuse crackles, no wheezing noted. Abdomen soft, nontender, nondistended, normal bowel sounds. Results & Data Results & Data ([facility]) Vital Signs (Past 12 Hours) Vital Signs Temp Pulse Pulse Resp BP Pulse Ox 06/18/19 16:30 91 06/18/19 15:50 59 L 18 100 06/18/19 15:21 36.7 C 64 16 163/67 H 93 06/18/19 11:58 36.6 C 75 18 169/64 H 96 06/18/19 08:00 75 06/18/19 07:56 36.5 C 65 18 169/79 H 95 06/18/19 06:25 71 06/18/19 06:01 76 22 95 06/18/19 05:50 37.2 C 75 22 164/78 H 97
[2019-06-18] MEDS: POTASSIUM CHLORIDE / WTR 10 MEQ/100 ML PLCT IV SCH ×2 (18:41→19:46)
[2019-06-19 06:14] LABS: Basophils # (auto) 0.07 K/uL (0-0.2); Basophils % (auto) 1.4 %; Eosinophils # (auto) 0.34 K/uL (0-0.5); Eosinophils % (auto) 6.8 %; Hematocrit (blood only) 28.3 % (37-47); Hemoglobin 8.7 g/dL (12.0-16.0); Lymphocytes # (auto) 0.83 K/uL (1.2-3.4); Lymphocytes % (auto) 16.6 %; Mean Corpuscular Hemoglobin 29.1 pg (25-34); Mean Corpuscular Hgb Conc 30.7 g/dL (32-36); Mean Corpuscular Volume 94.6 fL (80-100); Mean Platelet Volume 9.2 fL (7.4-10.4); Neutrophils # (auto) 3.05 K/uL (1.4-6.5); Neutrophils % (auto) 61.2 %; Platelet Count 277 K/uL (130-400); RDW Standard Deviation 64.9 fL (36.4-46.3); Red Blood Count 2.99 M/uL (4.2-5.4); White Blood Count 4.99 K/uL (4.8-10.8)
[2019-06-19 06:39] LABS: BUN Creatinine Ratio 17.8 (10-20); Calcium 8.5 mg/dl (8.5-10.1); Creatinine Clr Calc Pharmacy 31.7 ml/min; Est GFR (African American) 48.4; Est GFR (Non-African American) 41.8; Magnesium 2.3 mg/dl (1.8-2.4); Potassium 4.1 mmol/L (3.5-5.1)
[2019-06-19 06:48] LABS: Troponin I 0.13 ng/ml (0-0.045)
[2019-06-19] MEDS: ATORVASTATIN 20 MG TAB PO SCH (08:07)
[2019-06-19] MEDS: FOLIC ACID 1 MG TAB PO SCH (08:07)
[2019-06-19] MEDS: METOPROLOL SUCC 25MG EXT REL TAB PO SCH ×2 (08:07→19:36)
[2019-06-19] MEDS: CITALOPRAM 20 MG TAB PO SCH (08:07)
[2019-06-19] MEDS: ASPIRIN 81 MG ECTAB PO SCH (08:07)
[2019-06-19] MEDS: CLOPIDOGREL BISULFATE 75 MG TAB PO SCH (08:08)
[2019-06-19] MEDS: UMECLIDINIUM BROMIDE 62.5MCG/BLISTER 7 PUFFS/INHALER INH SCH (08:08)
[2019-06-19] MEDS: PANTOprazole 40 MG TAB PO SCH (08:08)
[2019-06-19] MEDS: ENOXAPARIN INJ 30 MG/0.3 ML SYR SQ SCH (08:08)
[2019-06-19] MEDS: POTASSIUM CHLORIDE 20 MEQ/15 ML UDC PO SCH (08:08)
[2019-06-19] MEDS: GABAPENTIN 300 MG CAP PO SCH ×3 (08:08→19:36)
--- NOTE | 2019-06-19 08:48 | Hospitalist Progress Note ---
Date of Service June 19, 2019 Assessment & Plan (1) Acute on chronic respiratory failure with hypoxia and hypercapnia: (2) SOB (shortness of breath): (3) Elevated troponin: (4) CAD (coronary artery disease): (5) Acute exacerbation of CHF (congestive heart failure): 74-year-old female who presents with acute shortness of breath, hypoxic and hypercarbic respiratory failure. [id number]-[id number] respiratory failure secondary to acute diastolic congestive heart failure Received a dose of IV Lasix in the ED, placed on CPAP, then BiPAP on admission At baseline uses 3-4L of O2 d/t COPD 40 IV Lasix scheduled qAM Last admission, Lasix was changed to 40 mg daily, but seems she does take only 20 mg daily at home. Follow cardiac enzymes, monitor on telemetry Andrade catheter placed, monitor I's and O's closely, and daily weights In the morning of admission elevated troponin at 0.16, then peaked at 0.23, IV heparin was started Cardiology consulted troponin elev. d/t demand isch., c/w myocardial strain in the setting of hypertension and acute volume overload IV heparin d/c'ed Hypertension - continue home metoprolol. Blood pressure was high in the ED, she was started on nitro drip in the ER which was tapered off. We will monitor the blood pressure. Hx of nonobstructive CAD, on beta-rasta, aspirin Plavix, statin Longstanding history of peripheral artery disease History of CVA Echocardiogram recently in April 2019, which showed EF of 55% to 60%, moderately dilated left atrium, mild mitral regurgitation, mild tricuspid regurgitation, pulmonary artery systolic pressure was 60-70 mmHg, grade 2 diastolic dysfunction. Episode of ventricular dysrhythmia, nonsustained, about 20 seconds, patient denied any symptoms In the setting of flash pulmonary edema, acute decompensated heart failure, acute respiratory failure, cardiac cath was recommended to exclude presence of severe obstructive CAD, however patient declined and is not interested in any invasive procedures. May resume p.o. Lasix in the morning (6) COPD (chronic obstructive pulmonary disease): - on home 3-4L of O2 at baseline - does not seem to be in COPD exacerbation - reported blood-tinged sputum, and therefore Rocephin and doxy was given empirically on admission - Blood-tinged sputum likely from CHF exacerbation - Sputum cultures ordered but are not collected - continue home inhalers (7) NSVT (nonsustained ventricular tachycardia): (8) Torsades de pointes: (9) Prolonged QT interval: Episode of ventricular dysrhythmia in the evening of June 17, lasted abou t 20 seconds. Patient denied any symptoms. Prolonged QT possibly secondary to medications, Zofran, Celexa, medication discontinued. We will recheck EKG in the morning 06/19 Cardiology following. Maintain K and Mag within normal limits In the setting of flash pulmonary edema, acute decompensated heart failure, acute respiratory failure, cardiac cath was recommended, however patient d eclined and is not interested in any invasive procedures. (10) Tobacco use disorder: nicotine patch ordered (11) Depression: On home citalopram. Given prolonged QTc, and episode of VT, Celexa discontinued. (12) Goals of care, counseling/discussion: Palliative medicine consulted, plan to discharge home with home health with possible transition to home hospice. Will further discuss with patient's daughters/caregivers. DNR/DNI status confirmed. (13) CKD (chronic kidney disease), stage III: Baseline creatinine around 1.2 Current Cr ~1.3 Cont. to monitor, try to avoid nephrotoxic agents (14) Anemia: Iron deficiency anemia, Current Hgb ~9 Cont. to monitor (15) Chronic hip pain: Continue gabapentin and hydrocodone (16) DVT prophylaxis: lovenox Admission and Anticipated Discharge Date Admission Date: June 18, 2019 Subjective Last evening, patient had a ventricular arrhythmia, lasting about 20 seconds, on my exam last evening patient denied any complaints, however per nursing staff she was holding her chest. On my interview, she had no chest pain, no shortness of breath, and was able to answer questions appropriately, however she also was inquiring about comfort care/hospice. At that time I reassured her that I would consult palliative medicine, and confirmed DNR/ DNI status with her. She continues to breathe comfortable on nasal cannula, 5 L. She is asking for nicotine patch this morning. Palliative medicine, Dr. Gonsalves evaluated patient, and discussed home health, with possible transfer to home hospice. They will discuss further with her mitzi francis. Discussed with cardiology this morning her ventricular arrhythmia last evening - given flash pulmonary edema, acute decompensated heart failure, acute respiratory failure, and ventricular dysrhythmias, cardiac cath was recommended. However patient refuses cardiac cath (reports prior experience that was unpleasant for her). Review of Systems Review of Systems: All systems reviewed & are unremarkable except as noted in HPI & below Constitutional: no fever and no chills Respiratory: no cough and no dyspnea (on 5L of O2) Cardiovascular: no chest pain, no palpitations and no edema Gastrointestinal: no abdominal pain, no nausea and no vomiting Physical Exam Physical Exam: GENERAL: elderly frail female, not in acute distress, using 5L of O2 via NC HEENT: NC/AT, no icterus. EOMI, PERRL NECK: No JVD, no neck masses CARDIOVASCULAR: S1, S2 heard, regular rate and rhythm, no murmur, no gallop. RESPIRATORY SYSTEM: No accessory muscle use. Using 5L O2 via NC, somewhat diminished lung sounds, +bibasilar crackles ABDOMEN: Soft, bowel sounds present, nontender. No distention. CENTRAL NERVOUS SYSTEM: Alert and oriented x3, no facial symmetry, speech fluent, moves all extremities spontaneously and without difficulty EXTREMITIES: No lower extremity edema, moves all 4 extremities spontaneously Results & Data Results & Data ([facility]) Vital Signs (Past 12 Hours) Vital Signs Temp Pulse Pulse Resp BP BP Pulse Ox 06/19/19 07:53 36.8 C 68 18 160/72 H 95 06/19/19 04:07 36.8 C 69 22 169/67 H 93 06/19/19 00:04 37.0 C 64 20 152/64 H 95 06/18/19 22:55 66 Laboratory Results 06/19/19 06/19/19 06/18/19 Range/Units 05:31 05:31 16:36 WBC 4.99 (4.8-10.8) K/uL RBC 2.99 L (4.2-5.4) M/uL Hgb 8.7 L (12.0-16.0) g/dL Hct 28.3 L (37-47) % MCV 94.6 (80-100) fL MCH 29.1 (25-34) pg MCHC 30.7 L (32-36) g/dL RDW Std Deviation 64.9 H (36.4-46.3) fL RDW Coeff of Sriram 19.0 H (11.5-14.5) % Plt Count 277 (130-400) K/uL MPV 9.2 (7.4-10.4) fL Immature Gran % (Auto) 0.0 % Neut % (Auto) 61.2 % Lymph % (Auto) 16.6 % [place] % (Auto) 14.0 % Eos % (Auto) 6.8 % Baso % (Auto) 1.4 % Immature Gran # (Auto) 0.00 (0.00-0.02) K/uL Neut # (Auto) 3.05 (1.4-6.5) K/uL Lymph # (Auto) 0.83 L (1.2-3.4) K/uL [place] # (Auto) 0.70 H (0.11-0.59) K/uL Eos # (Auto) 0.34 (0-0.5) K/uL Baso # (Auto) 0.07 (0-0.2) K/uL APTT (21.0-31.0) Seconds PTT Ratio Sodium 138 133 L (136-145) mmol/L Potassium 4.1 D 3.4 L (3.5-5.1) mmol/L Chloride 100 99 (98-107) mmol/L Carbon Dioxide 35 H 33 H (21-32) mmol/L Anion Gap 2.0 L 1.0 L (3-11) BUN 22 H 22 H (7-18) mg/dl Creatinine 1.25 H 1.33 H (0.6-1.2) mg/dl Est Cr Clr Drug Dosing 31.7 29.5 ml/min Est GFR ( Amer) 48.4 44.9 Est GFR (Non-Af Amer) 41.8 38.7 BUN/Creatinine Ratio 17.8 16.9 (10-20) Glucose 94 110 H (70-99) mg/dl Calcium 8.5 8.1 L (8.5-10.1) mg/dl Magnesium 2.3 2.2 (1.8-2.4) mg/dl Troponin I 0.130 H* (0-0.045) ng/ml 06/18/19 06/18/19 Range/Units 14:39 11:49 WBC (4.8-10.8) K/uL RBC (4.2-5.4) M/uL Hgb (12.0-16.0) g/dL Hct (37-47) % MCV (80-100) fL MCH (25-34) pg MCHC (32-36) g/dL RDW Std Deviation (36.4-46.3) fL RDW Coeff of Sriram (11.5-14.5) % Plt Count (130-400) K/uL MPV (7.4-10.4) fL Immature Gran % (Auto) % Neut % (Auto) % Lymph % (Auto) % [place] % (Auto) % Eos % (Auto) % Baso % (Auto) % Immature Gran # (Auto) (0.00-0.02) K/uL Neut # (Auto) (1.4-6.5) K/uL Lymph # (Auto) (1.2-3.4) K/uL [place] # (Auto) (0.11-0.59) K/uL Eos # (Auto) (0-0.5) K/uL Baso # (Auto) (0-0.2) K/uL APTT 35.6 H (21.0-31.0) Seconds PTT Ratio 1.3 Sodium (136-145) mmol/L Potassium (3.5-5.1) mmol/L Chloride (98-107) mmol/L Carbon Dioxide (21-32) mmol/L Anion Gap (3-11) BUN (7-18) mg/dl Creatinine (0.6-1.2) mg/dl Est Cr Clr Drug Dosing ml/min Est GFR ( Amer) Est GFR (Non-Af Amer) BUN/Creatinine Ratio (10-20) Glucose (70-99) mg/dl Calcium (8.5-10.1) mg/dl Magnesium (1.8-2.4) mg/dl Troponin I 0.230 H* (0-0.045) ng/ml Medications Administered Current Inpatient Medications Acetaminophen (Tylenol) 650 mg PO Q4H PRN PRN Reason: Pain or Fever Stop: 07/18/19 06:02 Hydrocodone Bitart/Acetaminophen (Drifting 5/325) 1 tab PO Q8H PRN PRN Reason: Pain Stop: 07/02/19 06:02 Albuterol (Ventolin Hfa) 2 puffs INH QID PRN; Protocol PRN Reason: Shortness Of Breath Or Wheezin Stop: 07/18/19 06:02 Aspirin (Ecotrin Ectab) 81 mg PO DAILY [facility] Stop: 07/18/19 08:59 Last Admin: 06/19/19 08:07 Dose: 81 mg Documented by: Atorvastatin Calcium (Lipitor) 20 mg PO DAILY [facility] Stop: 07/18/19 08:59 Last Admin: 06/19/19 08:07 Dose: 20 mg Documented by: Citalopram Hydrobromide (Celexa) 20 mg PO DAILY [facility] Stop: 07/18/19 08:59 Last Admin: 06/19/19 08:07 Dose: 20 mg Documented by: Clopidogrel Bisulfate (Plavix) 75 mg PO DAILY [facility] Stop: 07/18/19 08:59 Last Admin: 06/19/19 08:08 Dose: 75 mg Documented by: Enoxaparin Sodium (Lovenox) 30 mg SQ QAM [facility]; Protocol Stop: 07/19/19 08:59 Last Admin: 06/19/19 08:08 Dose: Not Given Documented by: Fluticasone Propionate (Flonase) 2 sprays NA DAILY PRN PRN Reason: Nasal Congestion Stop: 07/18/19 06:02 Folic Acid (Folvite) 1 mg PO DAILY [facility] Stop: 07/18/19 08:59 Last Admin: 06/19/19 08:07 Dose: 1 mg Documented by: Gabapentin (Neurontin) 300 mg PO TID [facility] Stop: 07/18/19 08:59 Last Admin: 06/19/19 08:08 Dose: 300 mg Documented by: Furosemide 40 mg/ Syringe 4 mls @ 4 mls/min IV DAILY [facility] Stop: 07/18/19 08:59 Last Admin: 06/18/19 08:12 Dose: 4 mls/min Documented by: Ipratropium Reading (Atrovent 0.02% 0.5mg/2.5ml) 0.5 mg INH Q4H PRN PRN Reason: Shortness Of Breath Or Wheezing Stop: 07/18/19 06:02 Levalbuterol HCl (Xopenex 1.25mg/0.5ml Neb) 1.25 mg INH Q4H PRN PRN Reason: Shortness Of Breath Or Wheezing Stop: 07/18/19 06:02 Metoprolol Succinate (Toprol Xl) 12.5 mg PO BID [facility] Stop: 07/18/19 08:59 Last Admin: 06/19/19 08:07 Dose: 12.5 mg Documented by: Nitroglycerin (Nitrostat) 0.4 mg SL UD PRN PRN Reason: Chest Pain Stop: 07/18/19 06:02 Ondansetron HCl (Zofran) 4 mg IV Q6H PRN PRN Reason: Nausea Stop: 07/18/19 06:02 Pantoprazole Sodium (Protonix) 40 mg PO DAILY [facility] Stop: 07/18/19 08:59 Last Admin: 06/19/19 08:08 Dose: 40 mg Documented by: Polyethylene Glycol (Miralax Powder Packet) 17 gm PO DAILY PRN PRN Reason: Constipation Stop: 07/18/19 06:02 Potassium Chloride (Lory Ciel Elix) 20 meq PO QAM [facility] Stop: 07/18/19 10:44 Last Admin: 06/19/19 08:08 Dose: 20 meq Documented by: Senna/Docusate Sodium (Senokot S) 1 tab PO DAILY PRN PRN Reason: constipation Stop: 07/18/19 06:02 Umeclidinium Reading (Incruse Ellipta) 1 puffs INH DAILY [facility] Stop: 07/18/19 08:59 Last Admin: 06/19/19 08:08 Dose: 1 puffs Documented by: (1) Acute exacerbation of CHF (congestive heart failure) Heart failure type: unspecified Qualified Code(s): I50.9 - Heart failure, unspecified (2) Anemia Anemia type: unspecified type Qualified Code(s): D64.9 - Anemia, unspecified (3) COPD (chronic obstructive pulmonary disease) COPD type: unspecified COPD Qualified Code(s): J44.9 - Chronic obstructive pulmonary disease, unspecified
[2019-06-19] MEDS ORDERED: ENOXAPARIN INJ 40 MG/0.4 ML SYR SQ SCH (09:00)
[2019-06-19] MEDS: FUROSEMIDE 40 MG in SYRINGE 0 ML IV SCH (09:43)
[2019-06-19] MEDS: NICOTINE 14 MG/24 HR PATCH TD SCH (10:29)
--- NOTE | 2019-06-19 12:07 | Cardiology Progress Note ---
Date of Service June 19, 2019 Assessment & Plan (1) Torsades de pointes: (2) Prolonged QT interval: (3) Acute exacerbation of CHF (congestive heart failure): (4) COPD (chronic obstructive pulmonary disease): Telemetry demonstrates torsade the points with R-on-T phenomenon occurring at approximately 1810 on 06/18/2019. Difficult to assess whether there were any associated symptoms at that time. Qtc is prolonged per repeat ECG today. Potential offending medications include Zofran and Celexa. I have discontinued both of these medications at this time. Serum potassium and magnesium levels are currently within normal limits. Continue low-dose beta-rasta therapy. With evidence of flash pulmonary edema, acute decompensated heart failure, acute respiratory failure, and ventricular dysrhythmias, I discussed performing cardiac catheterization for definition of coronary anatomy and exclude presence of severe obstructive CAD. Patient adamantly declines cardiac catheterization at this time. She prefers medical management only. Agreeable to repeat resting 2D transthoracic echocardiogram for further assessment of LV systolic function. Repeat ECG, BMP, and magnesium level in a.m. Consider transition to oral diuretic therapy in a.m. pending review of lab testing. Subjective Patient seen and examined at the bedside. Denies chest pain or shortness of breath. Polymorphic ventricular tachycardia, torsade the point recorded on telemetry at approximately 6 PM 06/18/2019. Patient denies any associated symptoms, however, she is not a strong historian. She was admitted 06/17 with shortness of breath and acute decompensated heart failure with preserved ejection fraction. Carries history of severe underlying COPD on home oxygen, 5 L daily, and peripheral vascular disease with known left subclavian occlusion, and right sided iliac stent placement 2008. Patient currently resting comfortably. No conversational dyspnea. Denies orthopnea or paroxysmal nocturnal dyspnea. Lower extremity edema noted on admission has resolved. Denies any palpitations, lightheadedness, dizziness, syncope, or near syncope. Voices desire to avoid further invasive procedures, specifically declining possibility of repeat cardiac catheterization at this time. Review of Systems Review of Systems: All systems reviewed & are unremarkable except as noted in HPI & below Physical Exam Constitutional: + thin; no acute distress Respiratory: normal respiratory effort; no respiratory distress, no labored breathing, does not use accessory muscles and no cough Auscultation: lungs clear to auscultation bilaterally and + diminished lung sounds; no rales, no rhonchi and no wheezes Cardiovascular: Rate/Rhythm: regular rate and regular rhythm Heart Sounds: normal S1 and normal S2; no murmur Palpation: normal PMI Vessels: no JVD Extremities: no edema Gastrointestinal (Abdomen): Inspection/Auscultation: abdomen normal to inspection and normal bowel sounds; abdomen not distended Percussion/Palpation: abdomen soft; abdomen nontender, no guarding and abdomen not rigid Musculoskeletal: Head/Neck/Chest: normocephalic and head atraumatic Skin: no rashes, warm and dry Neurologic: moves all extremities; no focal motor deficits Speech / Cognition: normal speech Psychiatric: A+Ox3, euthymic affect Results & Data Vital Signs (Past 12 Hours) Vital Signs Temp Pulse Resp BP BP Pulse Ox 06/19/19 07:53 36.8 C 68 18 160/72 H 95 06/19/19 04:07 36.8 C 69 22 169/67 H 93 06/19/19 00:04 37.0 C 64 20 152/64 H 95 (1) Acute exacerbation of CHF (congestive heart failure) Heart failure type: unspecified Qualified Code(s): I50.9 - Heart failure, unspecified (2) COPD (chronic obstructive pulmonary disease) COPD type: unspecified COPD Qualified Code(s): J44.9 - Chronic obstructive pulmonary disease, unspecified
--- NOTE | 2019-06-19 12:39 | Palliative Care Consultation ---
Date of Consultation June 19, 2019 Assessment & Plan (1) Goals of care, counseling/discussion: -74 year old female patient with PMH COPD and chronic respiratory failure on 3-4 liters oxygen, nonobstructive CAD and catheterization in 2010, PAD, CVA, chronic diastolic CHF, htn, CKD stage III, chronic hip pain, history of tobacco use, protein-calorie malnutrition, iron deficiency anemia, depression, history of sleep apnea, and others, presented to the hospital yesterday with c/o sudden SOB in the middle of the night. CXR showed evidence of congestive failure-- she had Andrade catheter placed and given dose of IV Lasix, which made her feel much better. Patient's troponin slightly elevated at 0.161, peaked at 0.230, and came back down to 0.130. She was initially on heparin gtt, but was discontinued. Cardiology consulted who stated troponin is likely from "myocardial strain in the setting of hypertension and acute volume overload." Patient had an echo cardiogram last month that showed EF 50-55% and severe pulmonary htn. Apparently the patient has inquired about comfort measures in the setting of her chronic illnesses. Palliative care is now consulted. -Palliative MD saw patient this afternoon. Patient A/O and stated that she is interested in hospice care later down the road, not quite yet. She confirmed her DNR status. -Patient reported to correctional case records supervisor and palliative MD that she has caregivers 8 hours per day, and a daughter who help her in the home. Patient also has a grand daughter who they're currently trying to get hired as a paid caregiver in the home. She is wheelchair bound, but is able to transfer with some assistance. She wears oxygen continuously at home for the last year. She has worn oxygen during only during the night for the previous 9 years. Patient plans to return home after discharge. -Based on patient's advanced COPD and chronic respiratory failure on continuous home oxygen, she would qualify for home hospice care when she is ready for the transition. I attempted to call both of patient's daughters, Colton to discuss, but no answer. -No symptom management needs at this time. -Please contact the palliative care team with any further needs. (2) SOB (shortness of breath): (3) Acute exacerbation of CHF (congestive heart failure): Heart failure type: unspecified Qualified Code(s): I50.9 - Heart failure, unspecified (4) COPD (chronic obstructive pulmonary disease): COPD type: unspecified COPD Qualified Code(s): J44.9 - Chronic obstructive pulmonary disease, unspecified Supervising Physician Co-Signing Physician Notes Chart reviewed, patient seen and examined. Collaborated with HARRY Rodriguez as well as attending physician . Patient is thin and frail, mild shortness of breath with prolonged conversation. Discussed with patient at length treatment options including going home with home health versus hospice. Patient with severe COPD as well as diastolic heart failure with more frequent hospitalizations in the past 2 months. Patient states she got short of breath in the middle the night-did not get out of bed or attempt any treatments-patient states she does weigh herself daily and that her legs had been much more swollen than usual. Patient stated when she gets short of breath she cannot think straight and did not think about trying a neb treatment or taking extra Lasix. Patient states she would like to discuss with her daughters-she may benefit from discharge home with a home health agency that also provides hospice care in order to have a smoother transition. Discussed that hospice care would be indicated when patient felt that coming to the hospital was no longer advantageous and would want to stay home and manage symptoms at home. Patient is looking to have increased help at home-she otherwise lives alone. PE: Patient awake and alert, mild shortness of breath at rest sats 92% on 5 L nasal cannula HEENT: EOMI, hearing within normal limits Respiratory: Good air movement bilaterally, no wheezes, diminished breath sounds bilateral bases CV: Regular rate, no edema Abdomen: Soft, nontender Extremities: Cachectic Neuro: Alert and oriented x4 Agree with above note, assessment and plan as per HARRY Rodriguez-we will continue to follow and assist patient and family with medical decision making. History of Present Illness Attending Physician: Dano Wolff MD History of Present Illness This 74 year old female patient with PMH COPD and chronic respiratory failure on 3-4 liters oxygen, nonobstructive CAD and catheterization in 2010, PAD, CVA, chronic diastolic CHF, htn, CKD stage III, chronic hip pain, history of tobacco use, protein-calorie malnutrition, iron deficiency anemia, depression, history of sleep apnea, and others, presented to the hospital yesterday with c/o sudden SOB in the middle of the night. CXR showed evidence of congestive failure-- she had Andrade catheter placed and given dose of IV Lasix, which made her feel much better. Patient's troponin slightly elevated at 0.161, peaked at 0.230, and came back down to 0.130. She was initially on heparin gtt, but was discontinued. Cardiology consulted who stated troponin is likely from "myocardial strain in the setting of hypertension and acute volume overload." Patient had an echo cardiogram last month that showed EF 50-55% and severe pulmonary htn. Apparently the patient has inquired about comfort measures in the setting of her chronic illnesses. Palliative care is now consulted. Thank you kindly for this consult. Allergies Allergy/AdvReac Type Severity Reaction Status Date / Time ciprofloxacin Allergy Mild ITCHY Verified 06/18/19 03:45 azithromycin Allergy Unknown Unknown Verified 06/18/19 03:45 Nitrate Analogues Allergy Unknown UNSURE; Verified 06/18/19 03:45 BUT PATIENT TAKES NITROSTAT PER ADMIT MED REC. nitrofurantoin Allergy Unknown UNSURE Verified 06/18/19 03:45 pneumococcal vaccine Allergy Unknown unk Verified 06/18/19 03:45 Influenza Virus Vaccines AdvReac Mild HIVES ON Verified 06/18/19 03:45 THE SITE Home Medications Home Medications Medication Instructions Recorded Confirmed Type albuterol sulfate [Ventolin HFA] 2 puff INHALATION QID PRN 12/28/17 06/18/19 History aspirin 81 mg PO DAILY 12/28/17 06/18/19 History atorvastatin 20 mg PO DAILY 12/28/17 06/18/19 History clopidogrel 75 mg PO DAILY 12/28/17 06/18/19 History fluticasone propionate 2 spray INTRANASAL DAILY PRN 12/28/17 06/18/19 History folic acid 1 mg PO DAILY 12/28/17 06/18/19 History metoprolol succinate 12.5 mg PO BID 12/28/17 06/18/19 History nitroglycerin 0.4 mg SUBLINGUAL DIRECTED PRN 12/28/17 06/18/19 History omeprazole 20 mg PO DAILY 12/28/17 06/18/19 History citalopram 20 mg PO DAILY 03/19/19 06/18/19 History hydrocodone-acetaminophen 1 tab PO Q8H PRN 5 Days #15 tab 03/24/19 06/18/19 Rx gabapentin 300 mg PO TID 05/09/19 06/18/19 History sennosides-docusate sodium 1 tabcap PO DAILY PRN #30 tab 05/13/19 06/18/19 Rx [Senokot-S] furosemide 20 mg PO DAILY 06/18/19 06/18/19 History potassium chloride 20 meq PO DAILY 06/18/19 06/18/19 History umeclidinium [Incruse Ellipta] 1 inh INHALATION DAILY 06/18/19 06/18/19 History Patient History Medical History Avascular necrosis (Chronic) CAD (coronary artery disease) (Chronic) Cardiac cath 2010-nonobstructive disease Carotid stenosis (Chronic) Chronic hip pain Chronic respiratory failure with hypoxia (Chronic) CKD (chronic kidney disease), stage III COPD (chronic obstructive pulmonary disease) (Chronic) CVA (cerebral vascular accident) (Chronic) Depression (Chronic) Diastolic CHF (Chronic) Dyslipidemia (Chronic) Hip pain, right (Chronic) HTN (hypertension) Hypertension (Chronic) DAYNA (iron deficiency anemia) (Chronic) IPMN (intraductal papillary mucinous neoplasm) (Chronic) Lumbar back pain (Chronic) PAD (peripheral artery disease) (Chronic) S/P stenting of the right distal common and right external iliac arteries Pancreatic duct stricture (Chronic) S/P stent Recurrent pancreatitis (Chronic) Sleep apnea (Chronic) Tobacco use disorder (Chronic) Surgical History H/O ventral hernia repair (Chronic) History of appendectomy (Chronic) History of cholecystectomy (Chronic) History of hysterectomy (Chronic) Family History Mother Stroke Father Stroke Social History Preferred Language: Kinyarwanda Communication Ability: Effective Visual Impairment: No Limitations Air Export Agent Required: No Beliefs That Will Affect Care: None marital status: / Current Living Situation: Alone Current Living Situation Comment: Caregivers 9a-5p daily x 40hrs/wk Other Information That Helps Us Care for You: No Feels Safe at Home: Yes Safety Concerns: Feels Safe At This Time Smoking Status: Former smoker Tobacco Type: cigarettes ; Cigarettes Per Day: 20 ; Do You Dip or Chew Tobacco: No ; Smoking End Date: 02/26/2019 ; Second Hand Exposure: No ; Tobacco Cessation Education Requested by Patient: No Hx Alcohol Use: Yes Alcohol type: wine Hx Substance Use: No Results & Data Vital Signs (Past 12 Hours) Vital Signs Temp Pulse Resp BP Pulse Ox 06/19/19 11:59 36.6 C 61 19 112/61 93 06/19/19 07:53 36.8 C 68 18 160/72 H 95 06/19/19 04:07 36.8 C 69 22 169/67 H 93 Coding Level of Care Code 02657 Inpt Consult Level 3 Diagnoses Goals of care, counseling/discussion Z71.89 SOB (shortness of breath) R06.02 Acute exacerbation of CHF (congestive heart failure) I50.9 Heart failure type: unspecified COPD (chronic obstructive pulmonary disease) J44.9 COPD type: unspecified COPD Time Spent (min) 70 Time Spent Midlevel A total of 50 minutes was spent by this MANAGER [employer]PLOY[employer] in reviewing chart, speaking with physicians and IDT regarding patient's condition, goals and plan of care. Attending Spent 20 minutes in addition to the 50 minutes spent by HARRY Rodriguez for a total of 80 minutes with greater than 50% of the time spent at bedside counseling patient, and counseling family by phone regarding treatment options and goals of care.
--- NOTE | 2019-06-19 14:27 | Electrocardiogram Report ---
Test Reason : Blood Pressure : / mmHG Vent. Rate : 068 BPM Atrial Rate : 068 BPM P-R Int : 168 ms QRS Dur : 080 ms QT Int : 532 ms P-R-T Axes : 073 063 182 degrees QTc Int : 565 ms Normal sinus rhythm Prolonged QT Abnormal ECG When compared with ECG of 18-JUN-2019 02:42, Vent. rate has decreased BY 34 BPM Nonspecific T wave abnormality now evident in Inferior leads T wave inversion now evident in Anterior leads QT has lengthened Confirmed by Bertrand Crandall ([id number]) on 06/19/2019 2:27:25 PM Referred By: REFERRED SELF Confirmed By:Thomas Crandall
[2019-06-19 16:08] LABS: BUN Creatinine Ratio 18.6 (10-20); Creatinine Clr Calc Pharmacy 28.6 ml/min; Est GFR (African American) 43.7; Est GFR (Non-African American) 37.7; Potassium 3.5 mmol/L (3.5-5.1)
[2019-06-19] MEDS: POTASSIUM CHLORIDE 20 MEQ/15 ML UDC PO STA ×2 (16:45→16:48)
[2019-06-19] MEDS: POTASSIUM CHLORIDE / WTR 10 MEQ/100 ML PLCT IV SCH ×3 (17:23→21:41)
[2019-06-19] MEDS: HYDROCODONE/ACETAMOPHEN 5/325MG TAB PO PRN (21:56)
--- NOTE | 2019-06-20 07:21 | Hospitalist Progress Note ---
Date of Service June 20, 2019 Assessment & Plan (1) Acute on chronic respiratory failure with hypoxia and hypercapnia: (2) SOB (shortness of breath): (3) Elevated troponin: (4) CAD (coronary artery disease): (5) Acute exacerbation of CHF (congestive heart failure): 74-year-old female who presents with acute shortness of breath, hypoxic and hypercarbic respiratory failure. [id number] respiratory failure secondary to acute diastolic congestive heart failure Received a dose of IV Lasix in the ED, placed on CPAP, then BiPAP on admission At baseline uses 4-5L of O2 d/t COPD 40 IV Lasix scheduled qAM Last admission, Lasix was changed to 40 mg daily, but seems she does take only 20 mg daily at home? Per my discussion today (06/19), patient takes 40 mg in the morning and 20 mg at noon. Follow cardiac enzymes, monitor on telemetry Andrade catheter placed, monitor I's and O's closely, and daily weights In the morning of admission elevated troponin at 0.16, then peaked at 0.23, IV heparin was started Cardiology consulted troponin elev. d/t demand ischemia, c/w myocardial strain in the setting of hypertension and acute volume overload IV heparin d/c'ed Hypertension - continue home metoprolol. Blood pressure was high in the ED, she was started on nitro drip in the ER which was tapered off. We will monitor the blood pressure. Hx of nonobstructive CAD, on beta-rasta, aspirin Plavix, statin Longstanding history of peripheral artery disease History of CVA Echocardiogram recently in April 2019, which showed EF of 55% to 60%, moderately dilated left atrium, mild mitral regurgitation, mild tricuspid regurgitation, pulmonary artery systolic pressure was 60-70 mmHg, grade 2 diastolic dysfunction. Repeat echo on this admission, June 18, showed again EF 55 to 60%, mild concentric LVH, no regional wall motion abnormalities noted. Episode of ventricular dysrhythmia, nonsustained, about 20 seconds, patient denied any symptoms In the setting of flash pulmonary edema, acute decompensated heart failure, acute respiratory failure, cardiac cath was recommended to exclude presence of severe obstructive CAD, however patient declined and is not interested in any invasive procedures. Resumed p.o. Lasix, 40 mg twice daily (6) COPD (chronic obstructive pulmonary disease): - on home 3-4L of O2 at baseline (patient now states that she actually uses 4 to 5 L of O2 at home) - does not seem to be in COPD exacerbation - reported blood-tinged sputum, and therefore Rocephin and doxy was given empirically on admission - Blood-tinged sputum likely from CHF exacerbation - Sputum cultures ordered but are not collected - continue home inhalers (7) NSVT (nonsustained ventricular tachycardia): (8) Torsades de pointes: (9) Prolonged QT interval: Episode of ventricular dysrhythmia in the evening of June 17, lasted about 20 seconds. Patient denied any symptoms. Prolonged QT possibly secondary to medications, Zofran, Celexa, medication discontinued. Rechecked EKG in the morning 06/19 Cardiology following. Maintain K and Mag within normal limits In the setting of flash pulmonary edema, acute decompensated heart failure, acute respiratory failure, cardiac cath was recommended, however patient declined and is not interested in any invasive procedures. (10) Tobacco use disorder: nicotine patch ordered (11) Depression: On home citalopram. Given prolonged QTc, and episode of VT, Celexa discontinued. (12) Goals of care, counseling/discussion: Palliative medicine consulted, plan to discharge home with home health with possible transition to home hospice. Will further discuss with patient's daughters/caregivers. DNR/DNI status confirmed. (13) CKD (chronic kidney disease), stage III: Baseline creatinine around 1.2 Current Cr ~1.3 Cont. to monitor, try to avoid nephrotoxic agents (14) Anemia: Iron deficiency anemia, Current Hgb ~9 Cont. to monitor (15) Chronic hip pain: Continue gabapentin and hydrocodone (16) DVT prophylaxis: lovenox Admission and Anticipated Discharge Date Admission Date: June 18, 2019 Subjective No acute events overnight. Patient is sitting up in bed, in no acute distress. She denies any chest pain, shortness of breath, fevers, chills, abdominal pain, nausea or vomiting. She is inquiring about going home, she is very much interested in going home with home health and transition to home hospice. Palliative medicine consulted and on board, case management also involved. Discussed with the patient current management of her CHF. She says that she takes 40 mg of Lasix in the morning and 20 mg at noon. She also says that she weighs herself and her weight is then transferred to physician. I asked her to record her weight for herself and keep a log. Explained that she may need more Lasix when her weight is increased. All these instructions will be in her discharge paperwork. Would also recommend to have her BMP rechecked in about a week or so. She understood and was agreeable. She also reported that she uses 4 to 5 L of O2 via nasal cannula continuously. Review of Systems Review of Systems: All systems reviewed & are unremarkable except as noted in HPI & below Constitutional: no fever and no chills Respiratory: no cough and no dyspnea (on 5 L of O2) Cardiovascular: no chest pain, no palpitations and no edema Gastrointestinal: no abdominal pain, no nausea and no vomiting Physical Exam Physical Exam: GENERAL: elderly frail female, not in acute distress, using 5L of O2 via NC HEENT: NC/AT, no icterus. EOMI, PERRL NECK: No JVD, no neck masses CARDIOVASCULAR: S1, S2 heard, regular rate and rhythm, no murmur, no gallop. RESPIRATORY SYSTEM: No accessory muscle use. Using 5L O2 via NC, somewhat diminished lung sounds, +bibasilar crackles ABDOMEN: Soft, bowel sounds present, nontender. No distention. CENTRAL NERVOUS SYSTEM: Alert and oriented x3, no facial symmetry, speech fluent, moves all extremities spontaneously and without difficulty EXTREMITIES: No lower extremity edema, moves all 4 extremities spontaneously Results & Data Results & Data ([facility]) Vital Signs (Past 12 Hours) Vital Signs Temp Pulse Resp BP Pulse Ox 06/20/19 03:48 37.0 C 103 H 20 162/73 H 95 06/19/19 23:42 36.8 C 62 20 93/58 L 93 06/19/19 19:32 37.3 C 65 18 165/69 H 92 Laboratory Results 06/20/19 06/20/19 06/19/19 Range/Units 07:23 07:22 15:32 WBC 5.17 (4.8-10.8) K/uL RBC 3.00 L (4.2-5.4) M/uL Hgb 8.7 L (12.0-16.0) g/dL Hct 28.7 L (37-47) % MCV 95.7 (80-100) fL MCH 29.0 (25-34) pg MCHC 30.3 L (32-36) g/dL RDW Std Deviation 64.5 H (36.4-46.3) fL RDW Coeff of Sriram 18.6 H (11.5-14.5) % Plt Count 277 (130-400) K/uL MPV 9.0 (7.4-10.4) fL Sodium 137 139 (136-145) mmol/L Potassium 3.8 3.5 (3.5-5.1) mmol/L Chloride 100 102 (98-107) mmol/L Carbon Dioxide 33 H 36 H (21-32) mmol/L Anion Gap 3.0 1.0 L (3-11) BUN 25 H 25 H (7-18) mg/dl Creatinine 1.28 H 1.36 H (0.6-1.2) mg/dl Est Cr Clr Drug Dosing 30.9 28.6 ml/min Est GFR ( Amer) 47.0 43.7 Est GFR (Non-Af Amer) 40.6 37.7 BUN/Creatinine Ratio 19.6 18.6 (10-20) Glucose 99 101 H (70-99) mg/dl Calcium 8.4 L 8.0 L (8.5-10.1) mg/dl Magnesium 2.2 (1.8-2.4) mg/dl Medications Administered Current Inpatient Medications Acetaminophen (Tylenol) 650 mg PO Q4H PRN PRN Reason: Pain or Fever Stop: 07/18/19 06:02 Hydrocodone Bitart/Acetaminophen ([place] 5/325) 1 tab PO Q8H PRN PRN Reason: Pain Stop: 07/02/19 06:02 Last Admin: 06/20/19 08:01 Dose: 1 tab Documented by: Albuterol (Ventolin Hfa) 2 puffs INH QID PRN; Protocol PRN Reason: Shortness Of Breath Or Wheezin Stop: 07/18/19 06:02 Aspirin (Ecotrin Ectab) 81 mg PO DAILY [facility] Stop: 07/18/19 08:59 Last Admin: 06/20/19 08:05 Dose: 81 mg Documented by: Atorvastatin Calcium (Lipitor) 20 mg PO DAILY [facility] Stop: 07/18/19 08:59 Last Admin: 06/20/19 08:05 Dose: 20 mg Documented by: Clopidogrel Bisulfate (Plavix) 75 mg PO DAILY [facility] Stop: 07/18/19 08:59 Last Admin: 06/20/19 08:06 Dose: 75 mg Documented by: Enoxaparin Sodium (Lovenox) 30 mg SQ QAM [facility]; Protocol Stop: 07/19/19 08:59 Last Admin: 06/20/19 08:06 Dose: Not Given Documented by: Fluticasone Propionate (Flonase) 2 sprays NA DAILY PRN PRN Reason: Nasal Congestion Stop: 07/18/19 06:02 Folic Acid (Folvite) 1 mg PO DAILY [facility] Stop: 07/18/19 08:59 Last Admin: 06/20/19 08:06 Dose: 1 mg Documented by: Gabapentin (Neurontin) 300 mg PO TID [facility] Stop: 07/18/19 08:59 Last Admin: 06/20/19 08:03 Dose: 300 mg Documented by: Furosemide 40 mg/ Syringe 4 mls @ 4 mls/min IV DAILY [facility] Stop: 07/18/19 08:59 Last Admin: 06/19/19 09:43 Dose: 4 mls/min Documented by: Ipratropium [place] (Atrovent 0.02% 0.5mg/2.5ml) 0.5 mg INH Q4H PRN PRN Reason: Shortness Of Breath Or Wheezing Stop: 07/18/19 06:02 Levalbuterol HCl (Xopenex 1.25mg/0.5ml Neb) 1.25 mg INH Q4H PRN PRN Reason: Shortness Of Breath Or Wheezing Stop: 07/18/19 06:02 Metoprolol Succinate (Toprol Xl) 12.5 mg PO BID [facility] Stop: 07/18/19 08:59 Last Admin: 06/20/19 08:00 Dose: 12.5 mg Documented by: Miscellaneous (Remove Nicoderm Patch) 1 ea N/A DAILY@0859 [facility] Stop: 07/20/19 08:58 Last Admin: 06/20/19 08:05 Dose: 1 ea Documented by: Nicotine (Nicoderm Cq) 14 mg TD QAM [facility] Stop: 07/19/19 10:14 Last Admin: 06/20/19 08:07 Dose: 14 mg Documented by: Nitroglycerin (Nitrostat) 0.4 mg SL UD PRN PRN Reason: Chest Pain Stop: 07/18/19 06:02 Pantoprazole Sodium (Protonix) 40 mg PO DAILY [facility] Stop: 07/18/19 08:59 Last Admin: 06/20/19 08:05 Dose: 40 mg Documented by: Polyethylene Glycol (Miralax Powder Packet) 17 gm PO DAILY PRN PRN Reason: Constipation Stop: 07/18/19 06:02 Potassium Chloride (Lory Ciel Elix) 20 meq PO QAM [facility] Stop: 07/18/19 10:44 Last Admin: 06/20/19 08:06 Dose: 20 meq Documented by: Senna/Docusate Sodium (Senokot S) 1 tab PO DAILY PRN PRN Reason: constipation Stop: 07/18/19 06:02 Umeclidinium [place] (Incruse Ellipta) 1 puffs INH DAILY [facility] Stop: 07/18/19 08:59 Last Admin: 06/20/19 08:00 Dose: 1 puffs Documented by: (1) Acute exacerbation of CHF (congestive heart failure) Heart failure type: unspecified Qualified Code(s): I50.9 - Heart failure, unspecified (2) Anemia Anemia type: unspecified type Qualified Code(s): D64.9 - Anemia, unspecified (3) COPD (chronic obstructive pulmonary disease) COPD type: unspecified COPD Qualified Code(s): J44.9 - Chronic obstructive pulmonary disease, unspecified
[2019-06-20 07:50] LABS: BUN Creatinine Ratio 19.6 (10-20); Calcium 8.4 mg/dl (8.5-10.1); Creatinine Clr Calc Pharmacy 30.9 ml/min; Est GFR (Non-African American) 40.6; Magnesium 2.2 mg/dl (1.8-2.4); Potassium 3.8 mmol/L (3.5-5.1)
[2019-06-20] MEDS: UMECLIDINIUM BROMIDE 62.5MCG/BLISTER 7 PUFFS/INHALER INH SCH (08:00)
[2019-06-20] MEDS: METOPROLOL SUCC 25MG EXT REL TAB PO SCH (08:00)
[2019-06-20] MEDS: HYDROCODONE/ACETAMOPHEN 5/325MG TAB PO PRN (08:01)
[2019-06-20 08:02] LABS: Hematocrit (blood only) 28.7 % (37-47); Hemoglobin 8.7 g/dL (12.0-16.0); Mean Corpuscular Hgb Conc 30.3 g/dL (32-36); Mean Corpuscular Volume 95.7 fL (80-100); Platelet Count 277 K/uL (130-400); RDW Coefficient of Variation 18.6 % (11.5-14.5); RDW Standard Deviation 64.5 fL (36.4-46.3); White Blood Count 5.17 K/uL (4.8-10.8)
[2019-06-20] MEDS: GABAPENTIN 300 MG CAP PO SCH ×2 (08:03→14:58)
[2019-06-20] MEDS: ASPIRIN 81 MG ECTAB PO SCH (08:05)
[2019-06-20] MEDS: ATORVASTATIN 20 MG TAB PO SCH (08:05)
[2019-06-20] MEDS: PANTOprazole 40 MG TAB PO SCH (08:05)
[2019-06-20] MEDS: FOLIC ACID 1 MG TAB PO SCH (08:06)
[2019-06-20] MEDS: POTASSIUM CHLORIDE 20 MEQ/15 ML UDC PO SCH (08:06)
[2019-06-20] MEDS: ENOXAPARIN INJ 30 MG/0.3 ML SYR SQ SCH (08:06)
[2019-06-20] MEDS: CLOPIDOGREL BISULFATE 75 MG TAB PO SCH (08:06)
[2019-06-20] MEDS: NICOTINE 14 MG/24 HR PATCH TD SCH (08:07)
[2019-06-20] MEDS ORDERED: FUROSEMIDE 40 MG TAB PO ONE (10:43)
--- NOTE | 2019-06-20 12:45 | Palliative Care Progress Note ---
Date of Service June 20, 2019 Assessment & Plan (1) Goals of care, counseling/discussion: -74 year old female patient with PMH COPD and chronic respiratory failure on 3-4 liters oxygen, nonobstructive CAD and catheterization in 2010, PAD, CVA, chronic diastolic CHF, htn, CKD stage III, chronic hip pain, history of tobacco use, protein-calorie malnutrition, iron deficiency anemia, depression, history of sleep apnea, and others, presented to the hospital yesterday with c/o sudden SOB in the middle of the night. CXR showed evidence of congestive failure-- she had Andrade catheter placed and given dose of IV Lasix, which made her feel much better. Patient's troponin slightly elevated at 0.161, peaked at 0.230, and came back down to 0.130. She was initially on heparin gtt, but was discontinued. Cardiology consulted who stated troponin is likely from "myocardial strain in the setting of hypertension and acute volume overload." Patient had an echo cardiogram last month that showed EF 50-55% and severe pulmonary htn. Apparently the patient has inquired about comfort measures in the setting of her chronic illnesses. Palliative care consulted. -Saw patient this afternoon. Patient A/O and stated that she was able to speak to HER-2 daughters regarding hospice care. They are in agreement when she is ready. She confirmed her DNR status. -Patient reported that she has caregivers 8 hours per day, and a daughter who help her in the home. Patient also has a granddaughter who they're currently trying to get hired as a paid caregiver in the home. She is wheelchair bound, but is able to transfer with some assistance. She wears oxygen continuously at home for the last year. She has worn oxygen during only during the night for the previous 9 years. Patient plans to return home after discharge with home health with a transition at some point to hospice. -No symptom management needs at this time. -Patient's plan is for discharge later this afternoon if all her home health needs are in place. (2) SOB (shortness of breath): (3) Acute exacerbation of CHF (congestive heart failure): (4) COPD (chronic obstructive pulmonary disease): Subjective Patient awake and alert, no acute distress. Patient states her respiratory status is pretty much at her home baseline. Patient did report that she was able to speak with her daughters regarding hospice care, she stated they both think it is a good idea, plan is to discharge with home health and transition to hospice after discharge. Review of Systems Review of Systems: Patient denies fever, chills, increased shortness of breath, or abdominal pain. Positive for generalized weakness Physical Exam Physical Exam: PE: Patient awake and alert, sitting up on side of bed, no acute distress. HEENT: EOMI, hearing within normal limits Respirations: Unlabored, on O2. Diminished breath sounds bilaterally few, crackles on left. CV: Regular rate, no edema Abdomen: Not distended Extremities: Cachectic, full range of motion Neuro: No focal deficits, alert and oriented x3 Results & Data Vital Signs (Past 12 Hours) Vital Signs Temp Pulse Pulse Resp BP Pulse Ox 06/20/19 11:47 97.3 F L 62 19 139/59 L 94 06/20/19 07:51 97.7 F 72 19 131/80 92 06/20/19 07:48 71 06/20/19 03:48 98.6 F 103 H 20 162/73 H 95 PG Care Time/CCT Total # of Minutes Spent Total Time Spent with Patient: Total time spent 35 minutes with greater than 50% of the time spent at bedside assessing patient's current status as well as reviewing goals of care. Coding Level of Care Code 93304 Subseq Hosp Care Lvl 3 Diagnoses Goals of care, counseling/discussion Z71.89 SOB (shortness of breath) R06.02 Acute exacerbation of CHF (congestive heart failure) I50.9 Heart failure type: unspecified COPD (chronic obstructive pulmonary disease) J44.9 COPD type: unspecified COPD Time Spent (min) 35 (1) Acute exacerbation of CHF (congestive heart failure) Heart failure type: unspecified Qualified Code(s): I50.9 - Heart failure, unspecified (2) COPD (chronic obstructive pulmonary disease) COPD type: unspecified COPD Qualified Code(s): J44.9 - Chronic obstructive pulmonary disease, unspecified
--- NOTE | 2019-06-20 14:03 | Discharge Summary ---
Date of Service June 20, 2019 Admission HPI Per Admitting Provider A 74-year-old female with past medical history significant for COPD and chronic respiratory failure on 3-4 liters oxygen, nonobstructive CAD and catheterization in 2010, peripheral artery disease, CVA, chronic diastolic CHF, hypertension, chronic kidney disease stage III, chronic hip pain, history of tobacco use, protein-calorie malnutrition, iron deficiency anemia, depression, history of sleep apnea, who presents with acute shortness of breath. The patient says suddenly in the middle of the night she woke up with shortness of breath and she could not breathe and she also had cough and she brought up some blood-filled sputum and EMS was called and when EMS arrived, she was saturating at 70%. She was placed on CPAP and was brought in here. Initially, her systolic blood pressure was also high and she was started on nitro drip which is tapered off currently, . CXR showed acute CHF and she was placed on Andrade catheter and given a dose of Lasix. Currently, she is resting comfortably. She is feeling better. Denies any headache. No blurred visions, no earache, no runny nose, no sore throat, no difficulty swallowing. Appetite is okay. Denies any chest pain. No nausea, no vomiting, no abdominal pain. Normal bowel and bladder movements. She says she has some swelling in the legs, but that is chronic. She lives alone. She is wheelchair bound, but she can transfer to the wheelchair. She has 3 daughters, who live close by. Called her daughter and daughter says she has aides to come and help her at home in the morning. No travel history. No sick contacts. When asked about whether she has any loss of smell or taste, she states this she does not know. The patient is DNR/DNI as per my discussion with the daughter. Admission Exam Per Admitting Provider GENERAL: The patient is old and frail, not in acute distress currently. VITAL SIGNS: Temperature 37.1, pulse 76, respiratory rate 13, blood pressure 159/76, oxygen currently 98% on CPAP. HEENT: No pallor, no icterus. Pupils equal, round, reactive to light. NECK: No JVD, no neck masses. CARDIOVASCULAR: S1, S2 heard, regular rate and rhythm, no murmur, no gallop. RESPIRATORY SYSTEM: Normal AP diameter. No accessory muscle use. Bilateral diminished breath sounds and occasional wheezing. ABDOMEN: Soft, bowel sounds present, nontender. No distention. CENTRAL NERVOUS SYSTEM: Alert and awake. Obeys simple commands. Insight good. Moves extremities. EXTREMITIES: Mild bilateral lower extremity pedal edema present. Principal Diagnosis Acute on chronic respiratory failure with hypoxia and hypercapnia Acute exacerbation of CHF (congestive heart failure) Discharge Exam GENERAL: elderly frail female, not in acute distress, using 5L of O2 via NC HEENT: NC/AT, no icterus. EOMI, PERRL NECK: No JVD, no neck masses CARDIOVASCULAR: S1, S2 heard, regular rate and rhythm, no murmur, no gallop. RESPIRATORY SYSTEM: No accessory muscle use. Using 5L O2 via NC, somewhat diminished lung sounds, +bibasilar crackles ABDOMEN: Soft, bowel sounds present, nontender. No distention. CENTRAL NERVOUS SYSTEM: Alert and oriented x3, no facial symmetry, speech fluent, moves all extremities spontaneously and without difficulty EXTREMITIES: No lower extremity edema, moves all 4 extremities spontaneously SKIN: warm, dry, no rashes or lesions Discharge Data Allergies Allergy/AdvReac Type Severity Reaction Status Date / Time ciprofloxacin Allergy Mild ITCHY Verified 06/18/19 03:45 azithromycin Allergy Unknown Unknown Verified 06/18/19 03:45 Nitrate Analogues Allergy Unknown UNSURE; Verified 06/18/19 03:45 BUT PATIENT TAKES NITROSTAT PER ADMIT MED REC. nitrofurantoin Allergy Unknown UNSURE Verified 06/18/19 03:45 pneumococcal vaccine Allergy Unknown unk Verified 06/18/19 03:45 Influenza Virus Vaccines AdvReac Mild HIVES ON Verified 06/18/19 03:45 THE SITE Consultations 06/18/19 04:10 ED Decision to Admit Stat 06/18/19 06:03 Consult Case Management - Discharge Planning Routine 06/18/19 08:00 Consult Cardiology Routine 06/19/19 08:00 Consult Palliative Care Routine Hospital Course (1) Acute on chronic respiratory failure with hypoxia and hypercapnia: (2) SOB (shortness of breath): (3) Elevated troponin: (4) CAD (coronary artery disease): (5) Acute exacerbation of CHF (congestive heart failure): 74-year-old female who presents with acute shortness of breath, hypoxic and hypercarbic respiratory failure. [id number] respiratory failure secondary to acute diastolic congestive heart failure Received a dose of IV Lasix in the ED, placed on CPAP, then BiPAP on admission At baseline uses 4-5L of O2 d/t COPD 40 IV Lasix scheduled qAM Last admission, Lasix was changed to 40 mg daily, but seems she does take only 20 mg daily at home? Per my discussion today (06/19), patient takes 40 mg in the morning and 20 mg at noon. Follow cardiac enzymes, monitor on telemetry Andrade catheter placed, monitor I's and O's closely, and daily weights In the morning of admission elevated troponin at 0.16, then peaked at 0.23, IV heparin was started Cardiology consulted troponin elev. d/t demand ischemia, c/w myocardial strain in the setting of hypertension and acute volume overload IV heparin d/c'ed Hypertension - continue home metoprolol. Blood pressure was high in the ED, she was started on nitro drip in the ER which was tapered off. We will monitor the blood pressure. Hx of nonobstructive CAD, on beta-rasta, aspirin Plavix, statin Longstanding history of peripheral artery disease History of CVA Echocardiogram recently in April 2019, which showed EF of 55% to 60%, moderately dilated left atrium, mild mitral regurgitation, mild tricuspid regurgitation, pulmonary artery systolic pressure was 60-70 mmHg, grade 2 diastolic dysfunction. Repeat echo on this admission, June 18, showed again EF 55 to 60%, mild concentric LVH, no regional wall motion abnormalities noted. Episode of ventricular dysrhythmia, nonsustained, about 20 seconds, patient denied any symptoms In the setting of flash pulmonary edema, acute decompensated heart failure, acute respiratory failure, cardiac cath was recommended to exclude presence of severe obstructive CAD, however patient declined and is not interested in any invasive procedures. Resumed p.o. - Lasix, 40 mg twice daily Patient will be discharged on Lasix 40 mg twice a day, also instructed to weigh herself daily and keep a log of these numbers. She will need BMP to check on her kidney function and potassium level in about a week. Patient will need PCP follow-up. (6) COPD (chronic obstructive pulmonary disease): - on home 3-4L of O2 at baseline (patient now states that she actually us es 4 to 5 L of O2 at home) - does not seem to be in COPD exacerbation - reported blood-tinged sputum, and therefore Rocephin and doxy was given empirically on admission - Blood-tinged sputum likely from CHF exacerbation - Sputum cultures ordered but are not collected - continue home inhalers (7) NSVT (nonsustained ventricular tachycardia): (8) Torsades de pointes: (9) Prolonged QT interval: Episode of ventricular dysrhythmia in the evening of June 17, lasted about 20 seconds. Patient denied any symptoms. Prolonged QT possibly secondary to medications, Zofran, Celexa, medication discontinued. Rechecked EKG in the morning 06/19 Cardiology following. Maintain K and Mag within normal limits In the setting of flash pulmonary edema, acute decompensated heart failure, acute respiratory failure, cardiac cath was recommended, however patient declined and is not interested in any invasive procedures. (10) Tobacco use disorder: nicotine patch ordered (11) Depression: On home citalopram. Given prolonged QTc, and episode of VT, Celexa discontinued. (12) Goals of care, counseling/discussion: Palliative medicine consulted, plan to discharge home with home health with possible transition to home hospice. Will further discuss with patient's daughters/caregivers. DNR/DNI status confirmed. (13) CKD (chronic kidney disease), stage III: Baseline creatinine around 1.2 Current Cr ~1.3 Cont. to monitor, try to avoid nephrotoxic agents (14) Anemia: Iron deficiency anemia, Current Hgb ~9 Cont. to monitor, follow up as outpt (15) Chronic hip pain: Continue gabapentin and hydrocodone Total Time Total Time Spent Total Time Spent (In Minutes): 40 Total Time Includes: Examination of the Patient, Discharge Planning, Medication Reconciliation and Communication With Other Providers Discharge Plan Discharge Items Patient Disposition: Home - Home Health Services Reason For Visit: SHORT OF BREATH Discharge Diagnosis: Acute on chronic respiratory failure with hypoxia and hypercapnia Acute exacerbation of CHF (congestive heart failure) Activity: As commented below Non-emergency contact: Primary Care Provider Call non-emergency contact if: you have any medication questions and your symptoms worsen Follow-up/Referrals: Lena Quintanilla DO [Primary Care Provider] - 06/26/19 11:05 am Diet: Heart Healthy and Low Sodium (2gm) Fluids: 1800ml (7 cups) Addtl Attending Provider Instructions: Recommend that you increase your Lasix dose to 40 mg twice a day. Make sure that you weigh yourself in the morning and keep a log of these numbers. If you gain 2 to 3 pounds in a day or 2 OR 5 pounds over a week, take additional 40 mg of Lasix and contact your physician. Also recommend that you have your blood work checked, BMP, in about a week. This way your physician can follow-up on your kidney function, and potassium level. Follow-up with your primary care physician, so she is aware of all the medicati on changes. Also recommend that you stop taking omeprazole, as it interacts with your other medication, Plavix. Instead, start taking Protonix (pantoprazole) as prescribed. Celexa was discontinued, to prevent any abnormal heart rhythms. Please discuss with your physician if you should be started on a different medication. Home health was set up by for you by our case management. Please make sure to read further instructions below. Addtl Financial Reporting Analyst Provider Instructions: Call your Primary Care doctor if any of the following symptoms or problems start or get worse: * Shortness of breath or difficulty breathing * Wake up at night short of breath * Chest pain * Cough * Swelling of your hands, feet, or legs * More fatigued or tired with your normal activity * Palpitations - sudden fast heart beats WEIGHT * Weigh yourself every morning after using the bathroom. * Use the same scale. * Wear the same amount of clothing. * Write your weight down on a chart. * Call your Primary Care doctor if you gain more than 2-3 pounds in 1-2 days. MEDICATIONS * Use this discharge instruction sheet for medication instructions. * Take your medications at the time your doctor ordered. * Do not skip a dose of your medicines. * If you miss a dose of medicine, take it as soon as possible, but DO NOT DOUBLE A DOSE. * Read your medicine information when you get home. * Know all of the side effects of your medicine. If in doubt, ask your pharmacist * Call your Primary Care doctor's office if you have any side effects. * Be sure all of your doctors know what medicine and herbs you take (including cold, flu, and herbal medicine). Take the following with you to your follow-up doctor appointments: * Weight Chart * Medication List * List of questions Do not drink excessive alcohol, beer or wine. Pending Studies at Discharge: No Stand-Alone Forms: [employer], Smoking Cessation Medications and DC Order Prescriptions: New furosemide 40 mg Tablet 40 mg PO BID 30 Days Qty: 60 RF: 0 pantoprazole 40 mg Tablet,Delayed Release (Dr/Ec) 40 mg PO DAILY 30 Days Qty: 30 RF: 0 Continued atorvastatin 20 mg tablet 20 mg PO DAILY RF: 0 clopidogrel 75 mg tablet 75 mg PO DAILY RF: 0 aspirin 81 mg Tablet,Delayed Release (Dr/Ec) 81 mg PO DAILY RF: 0 nitroglycerin 0.4 mg tablet, sublingual 0.4 mg Sublingual DIRECTED PRN (Reason: Chest Pain) RF: 0 folic acid 1 mg Tablet 1 mg PO DAILY RF: 0 metoprolol succinate 25 mg tablet extended release 24 hr 12.5 mg PO BID RF: 0 albuterol sulfate [Ventolin HFA] 90 mcg/actuation Hfa Aerosol Inhaler 2 puff INHALATION QID PRN (Reason: Shortness Of Breath Or Wheezing) RF: 0 fluticasone propionate 50 mcg/actuation [place],Suspension 2 spray INTRANASAL DAILY PRN (Reason: Nasal Congestion) RF: 0 gabapentin 300 mg capsule 300 mg PO TID RF: 0 sennosides-docusate sodium [Senokot-S] 8.6-50 mg tablet 1 tabcap PO DAILY PRN (Reason: constipation) Qty: 30 RF: 0 hydrocodone-acetaminophen 5-325 mg tablet 1 tab PO Q8H PRN (Reason: Pain) 5 Days Qty: 15 RF: 0 potassium chloride 20 mEq tablet,ER particles/crystals 20 meq PO DAILY RF: 0 Incruse Ellipta 62.5 mcg/actuation blister with device 1 inh INHALATION DAILY RF: 0 Discontinued omeprazole 20 mg capsule,delayed release(DR/EC) 20 mg PO DAILY RF: 0 citalopram 20 mg tablet 20 mg PO DAILY RF: 0 furosemide 20 mg tablet 20 mg PO DAILY RF: 0 Discharge Orders: Discharge Order (Routine); Ordered 06/20/19 Ordered By: Dano Wolff Admission Data Admit Date/Time: 06/18/19 04:37 Attending Provider: Dano Wolff Admit Provider: Tim Rodriguez Primary Care Provider: Lena Quintanilla Other Providers: Tim Rodriguez ; Anuj Martinez ; Gary Yuan ; Bong Ferrer ; Angel Quintanilla ; Martín Rivas. ; Sanjay Menadr ; Lynda Mena ; Mckenna Oden ; Michael Condon ; Naz Lozano ; Reema Gonsalves ; [place]
--- NOTE | 2019-06-20 15:26 | Electrocardiogram Report ---
Test Reason : Blood Pressure : / mmHG Vent. Rate : 067 BPM Atrial Rate : 258 BPM P-R Int : 000 ms QRS Dur : 086 ms QT Int : 486 ms P-R-T Axes : 000 054 121 degrees QTc Int : 513 ms Normal sinus rhythm Prolonged QT Abnormal ECG When compared with ECG of 19-JUN-2019 06:47, No change Confirmed by Bertrand Crandall ([id number]) on 06/20/2019 3:26:37 PM Referred By: REFERRED SELF Confirmed By:Thomas Crandall
[2019-06-20] MEDS ORDERED: FUROSEMIDE 40 MG TAB PO SCH (17:00)
== END 2019-06-20 16:01 | disposition home health service (06) | DRG 291 ==
LOC: ED 02:33 → 2S 04:37 → SUATTDRO 04:37 → 2S 05:30

== ENCOUNTER 2019-08-01 07:07 | Inpatient (IN) ==
[2019-08-01] MEDS ORDERED: ONDANSETRON 4 MG OD TAB PO STA (07:11)
[2019-08-01] MEDS ORDERED: NITROGLYCERIN SL 0.4 MG/TAB TAB SL STA ×2 (07:12→07:25)
[2019-08-01] MEDS ORDERED: ONDANSETRON 4 MG OD TAB ONE (07:13)
[2019-08-01] MEDS ORDERED: NITROGLYCERIN SL 0.4 MG/TAB TAB ONE (07:15)
[2019-08-01] MEDS ORDERED: ONDANSETRON INJ 2 MG/ML 2 ML VIAL ONE (07:25)
[2019-08-01] MEDS ORDERED: ONDANSETRON INJ 2 MG/ML 2 ML VIAL IV STA (07:25)
[2019-08-01] MEDS ORDERED: STAT IV Infusion **Titration per Protocol STA (07:25)
[2019-08-01] MEDS ORDERED: NITROGLYCERIN/D5W 100MCG/ML 250 ML IV SCH (07:30)
--- NOTE | 2019-08-01 07:34 | XRay Report ---
XR chest 1V portable CLINICAL HISTORY: jhony dyspnea COMPARISON STUDY: 07/08/2019 FINDINGS: Mild stable cardiomegaly. Increased prominence of pulmonary vasculature compared to the gagan or exam. Small left pleural effusion. Minimal right pleural effusion. IMPRESSION: Congestive heart failure superimposed upon chronic parenchymal prominence. ACT 112: Negative or not required by law. The above report was generated using voice recognition software. It may contain grammatical, syntax or spelling errors. Electronically signed by: Sanjay Cid M.D. 08/01/2019 7:32 AM
[2019-08-01 07:42] LABS: Base Excess VBG 1.4 mEq/L; Oxygen Saturation VBG 77.3 %; pH VBG 7.27 (7.36-7.41)
[2019-08-01 07:52] LABS: Basophils # (auto) 0.05 K/uL (0-0.2); Basophils % (auto) 0.6 %; Eosinophils # (auto) 0.52 K/uL (0-0.5); Eosinophils % (auto) 6.6 %; Hematocrit (blood only) 39.3 % (37-47); Hemoglobin 12.2 g/dL (12.0-16.0); Lymphocytes # (auto) 2.96 K/uL (1.2-3.4); Lymphocytes % (auto) 37.7 %; Mean Corpuscular Hemoglobin 30.3 pg (25-34); Mean Corpuscular Volume 97.5 fL (80-100); Mean Platelet Volume 9.8 fL (7.4-10.4); Monocytes # (auto) 0.68 K/uL (0.11-0.59); Monocytes % (auto) 8.7 %; Neutrophils # (auto) 3.65 K/uL (1.4-6.5); Neutrophils % (auto) 46.4 %; Platelet Count 303 K/uL (130-400); RDW Standard Deviation 56.5 fL (36.4-46.3); Red Blood Count 4.03 M/uL (4.2-5.4); White Blood Count 7.86 K/uL (4.8-10.8)
[2019-08-01 07:54] LABS: Partial Thromboplastin Ratio 0.9; Prothrombin Time 10.7 Seconds (9.0-12.0)
[2019-08-01] MEDS ORDERED: MoRPHine SULFATE 4 MG/ML 1 ML CARP\\VIAL IV STA (08:00)
[2019-08-01 08:01] LABS: Alanine Aminotransferase 14 U/L (12-78); Albumin Level 3.3 gm/dl (3.4-5.0); Aspartate Aminotransferase 15 U/L (15-37); BUN Creatinine Ratio 15.6 (10-20); Bilirubin Direct 0.1 mg/dl (0-0.2); Blood Urea Nitrogen 21 mg/dl (7-18); Calcium 9.2 mg/dl (8.5-10.1); Carbon Dioxide 28 mmol/L (21-32); Chloride 104 mmol/L (98-107); Creatinine Clr Calc Pharmacy 29.5 ml/min; Est GFR (African American) 44.5; Est GFR (Non-African American) 38.4; Glucose 117 mg/dl (70-99); Lipase 157 U/L (73-393); Magnesium 2.7 mg/dl (1.8-2.4); Potassium 3.4 mmol/L (3.5-5.1); Sodium 139 mmol/L (136-145)
--- NOTE | 2019-08-01 08:03 | Emergency Department Note ---
History of Present Illness General Chief complaint: Respiratory Distress Stated complaint: respiratory distress Time Seen by Provider: 08/01/19 07:11 History of Present Illness Provider complaint: Respiratory distress Onset (ago): day(s) 1 Maximum Pain Intensity: 4 74-year-old female presents to the emergency department respiratory distress. Report from EMS is that the patient called 911 for difficulty breathing herself this morning. On arrival EMS states that the patient was extremely hypertensive, hypoxic, and in severe respiratory distress with retractions, wheezing, and rales. Patient denies any history of intubation. She denies any loss of taste, smell, fever, or exposure to anyone who is COVID-19 positive for person of interest. Home Medications Home Medications Medication Instructions Recorded Confirmed Type albuterol sulfate [Ventolin HFA] 2 puff INHALATION QID PRN 12/28/17 08/01/19 History aspirin 81 mg PO QAM 12/28/17 08/01/19 History clopidogrel 75 mg PO QAM 12/28/17 08/01/19 History fluticasone propionate 2 spray INTRANASAL DAILY PRN 12/28/17 08/01/19 History folic acid 1 mg PO DAILY 12/28/17 08/01/19 History metoprolol succinate 12.5 mg PO QAM 12/28/17 08/01/19 History nitroglycerin 0.4 mg SUBLINGUAL DIRECTED PRN 12/28/17 08/01/19 History hydrocodone-acetaminophen 1 tab PO Q8H PRN 5 Days #15 tab 03/24/19 08/01/19 Rx gabapentin 300 mg PO TID 05/09/19 08/01/19 History sennosides-docusate sodium 1 tabcap PO DAILY PRN #30 tab 05/13/19 08/01/19 Rx [Senokot-S] Incruse Ellipta 1 inh INHALATION DAILY 06/18/19 08/01/19 History potassium chloride 20 meq PO QAM 06/18/19 08/01/19 History mupirocin 1 applic TOPICAL UD 08/01/19 08/01/19 History sertraline 25 mg PO DAILY 08/01/19 08/01/19 History Allergies Allergy/AdvReac Type Severity Reaction Status Date / Time ciprofloxacin Allergy Mild ITCHY Verified 08/01/19 07:48 azithromycin Allergy Unknown Unknown Verified 06/05/20 07:48 Nitrate Analogues Allergy Unknown UNSURE; Verified 08/01/19 07:48 BUT PATIENT TAKES NITROSTAT PER ADMIT MED REC. nitrofurantoin Allergy Unknown UNSURE Verified 08/01/19 07:48 pneumococcal vaccine Allergy Unknown unk Verified 08/01/19 07:48 Influenza Virus Vaccines AdvReac Mild HIVES ON Verified 08/01/19 07:48 THE SITE Past Med/Surg History Medical History Avascular necrosis (Chronic) CAD (coronary artery disease) (Chronic) Cardiac cath 2010-nonobstructive disease Carotid stenosis (Chronic) Chronic hip pain Chronic respiratory failure with hypoxia (Chronic) CKD (chronic kidney disease), stage III COPD (chronic obstructive pulmonary disease) (Chronic) CVA (cerebral vascular accident) (Chronic) Depression (Chronic) Diastolic CHF (Chronic) Dyslipidemia (Chronic) Hip pain, right (Chronic) HTN (hypertension) (Acute) Hypertension (Chronic) DAYNA (iron deficiency anemia) (Chronic) IPMN (intraductal papillary mucinous neoplasm) (Chronic) Lumbar back pain (Chronic) PAD (peripheral artery disease) (Chronic) S/P stenting of the right distal common and right external iliac arteries Pancreatic duct stricture (Chronic) S/P stent Recurrent pancreatitis (Chronic) Sleep apnea (Chronic) Tobacco use disorder (Chronic) Surgical History H/O ventral hernia repair (Chronic) History of appendectomy (Chronic) History of cholecystectomy (Chronic) History of hysterectomy (Chronic) Family History Mother Stroke Father Stroke Social History Preferred Language: [place] Communication Ability: Effective Visual Impairment: No Limitations N[place] Machinist Required: No Beliefs That Will Affect Care: None marital status: / Current Living Situation: Alone Current Living Situation Comment: Caregivers 9a-5p daily x 40hrs/wk Other Information That Helps Us Care for You: No Feels Safe at Home: Yes Safety Concerns: Feels Safe At This Time Smoking Status: Current every day smoker Tobacco Type: cigarettes ; Cigarettes Per Day: 20 ; Do You Dip or Chew Tobacco: No ; Second Hand Exposure: No ; Tobacco Cessation Education Requested by Patient: No Hx Alcohol Use: Yes Alcohol type: wine Hx Substance Use: Yes substance use type: painkillers Review of Systems Other (Unable to obtain due to the patient's severe respiratory distress.) Physical Exam Vital Signs Vital Signs - 24 hr 08/01/19 07:05 08/01/19 07:11 08/01/19 07:13 Temperature 36.7 C Temperature Source Oral Pulse Rate 84 97 H 105 H Pulse Rate [Apical] Pulse Rate from SpO2 Sensor 98 H 105 H Respiratory Rate 32 H 19 33 H Respiratory Effort / Characteristics Respiratory Depth Respiratory Pattern Blood Pressure 204/156 H 204/156 H Blood Pressure [Right Arm] Blood Pressure Mean 172 172 Blood Pressure Mean [Right Arm] Pulse Oximetry 85 L 98 89 L Oxygen Delivery Method Room Air Fraction of Inspired Oxygen Sepsis Recent Fever Within 48 Hours No Sepsis New/Unexplained Change in Mental Status No Sepsis Action Taken by Nursing No Action Required 08/01/19 07:15 08/01/19 07:20 08/01/19 07:24 Temperature Temperature Source Pulse Rate 120 H 100 H Pulse Rate [Apical] Pulse Rate from SpO2 Sensor 122 H 106 H 100 H Respiratory Rate 33 H 18 Respiratory Effort / Characteristics Spontaneous Accessory Muscle Use Short of Breath Respiratory Depth Shallow Respiratory Pattern Agonal Tachypnea Blood Pressure 244/127 H Blood Pressure [Right Arm] Blood Pressure Mean 167 Blood Pressure Mean [Right Arm] Pulse Oximetry 88 L 97 97 Oxygen Delivery Method Fraction of Inspired Oxygen 100 Sepsis Recent Fever Within 48 Hours Sepsis New/Unexplained Change in Mental Status Sepsis Action Taken by Nursing 08/01/19 07:25 08/01/19 07:30 08/01/19 07:32 Temperature Temperature Source Pulse Rate 98 H 91 H 89 Pulse Rate [Apical] Pulse Rate from SpO2 Sensor 97 H 91 H 89 Respiratory Rate 18 18 20 Respiratory Effort / Characteristics Respiratory Depth Respiratory Pattern Blood Pressure 218/105 H Blood Pressure [Right Arm] Blood Pressure Mean 144 Blood Pressure Mean [Right Arm] Pulse Oximetry 96 95 95 Oxygen Delivery Method Fraction of Inspired Oxygen 50 Sepsis Recent Fever Within 48 Hours Sepsis New/Unexplained Change in Mental Status Sepsis Action Taken by Nursing 08/01/19 07:35 08/01/19 07:40 08/01/19 07:41 Temperature Temperature Source Pulse Rate 85 85 Pulse Rate [Apical] Pulse Rate from SpO2 Sensor 85 88 83 Respiratory Rate 19 17 Respiratory Effort / Characteristics Respiratory Depth Respiratory Pattern Blood Pressure 201/134 H 193/119 H Blood Pressure [Right Arm] Blood Pressure Mean 171 139 Blood Pressure Mean [Right Arm] Pulse Oximetry 93 92 92 Oxygen Delivery Method Fraction of Inspired Oxygen Sepsis Recent Fever Within 48 Hours Sepsis New/Unexplained Change in Mental Status Sepsis Action Taken by Nursing 08/01/19 07:45 08/01/19 07:46 08/01/19 07:50 Temperature Temperature Source Pulse Rate Pulse Rate [Apical] Pulse Rate from SpO2 Sensor 80 80 79 Respiratory Rate Respiratory Effort / Characteristics Respiratory Depth Respiratory Pattern Blood Pressure 198/93 H 193/101 H Blood Pressure [Right Arm] Blood Pressure Mean 152 166 Blood Pressure Mean [Right Arm] Pulse Oximetry 93 92 92 Oxygen Delivery Method Fraction of Inspired Oxygen Sepsis Recent Fever Within 48 Hours Sepsis New/Unexplained Change in Mental Status Sepsis Action Taken by Nursing 08/01/19 07:51 08/01/19 07:55 08/01/19 07:56 Temperature Temperature Source Pulse Rate Pulse Rate [Apical] Pulse Rate from SpO2 Sensor 78 78 78 Respiratory Rate Respiratory Effort / Characteristics Respiratory Depth Respiratory Pattern Blood Pressure 195/85 H Blood Pressure [Right Arm] Blood Pressure Mean 151 Blood Pressure Mean [Right Arm] Pulse Oximetry 92 93 93 Oxygen Delivery Method Fraction of Inspired Oxygen Sepsis Recent Fever Within 48 Hours Sepsis New/Unexplained Change in Mental Status Sepsis Action Taken by Nursing 08/01/19 08:00 08/01/19 08:01 08/01/19 08:05 Temperature Temperature Source Pulse Rate Pulse Rate [Apical] Pulse Rate from SpO2 Sensor 78 78 77 Respiratory Rate Respiratory Effort / Characteristics Respiratory Depth Respiratory Pattern Blood Pressure 191/92 H 196/86 H Blood Pressure [Right Arm] Blood Pressure Mean 154 140 Blood Pressure Mean [Right Arm] Pulse Oximetry 93 93 93 Oxygen Delivery Method Fraction of Inspired Oxygen Sepsis Recent Fever Within 48 Hours Sepsis New/Unexplained Change in Mental Status Sepsis Action Taken by Nursing 08/01/19 08:06 08/01/19 08:10 08/01/19 08:11 Temperature Temperature Source Pulse Rate 76 76 Pulse Rate [Apical] Pulse Rate from SpO2 Sensor 75 76 76 Respiratory Rate 13 16 Respiratory Effort / Characteristics Respiratory Depth Respiratory Pattern Blood Pressure 197/79 H Blood Pressure [Right Arm] Blood Pressure Mean 146 Blood Pressure Mean [Right Arm] Pulse Oximetry 91 90 89 L Oxygen Delivery Method Fraction of Inspired Oxygen Sepsis Recent Fever Within 48 Hours Sepsis New/Unexplained Change in Mental Status Sepsis Action Taken by Nursing 08/01/19 08:15 08/01/19 08:20 08/01/19 08:25 Temperature Temperature Source Pulse Rate 78 76 71 Pulse Rate [Apical] Pulse Rate from SpO2 Sensor 76 75 71 Respiratory Rate 22 13 15 Respiratory Effort / Characteristics Respiratory Depth Respiratory Pattern Blood Pressure 183/80 H 174/76 H 167/73 H Blood Pressure [Right Arm] Blood Pressure Mean 130 113 132 Blood Pressure Mean [Right Arm] Pulse Oximetry 92 93 93 Oxygen Delivery Method Fraction of Inspired Oxygen Sepsis Recent Fever Within 48 Hours Sepsis New/Unexplained Change in Mental Status Sepsis Action Taken by Nursing 08/01/19 08:30 08/01/19 08:35 08/01/19 08:36 Temperature Temperature Source Pulse Rate 69 68 67 Pulse Rate [Apical] Pulse Rate from SpO2 Sensor 69 68 68 Respiratory Rate 15 14 19 Respiratory Effort / Characteristics Respiratory Depth Respiratory Pattern Blood Pressure 139/63 149/68 H Blood Pressure [Right Arm] Blood Pressure Mean 88 116 Blood Pressure Mean [Right Arm] Pulse Oximetry 91 93 94 Oxygen Delivery Method Fraction of Inspired Oxygen Sepsis Recent Fever Within 48 Hours Sepsis New/Unexplained Change in Mental Status Sepsis Action Taken by Nursing 08/01/19 08:40 08/01/19 08:41 08/01/19 08:42 Temperature Temperature Source Pulse Rate 67 66 Pulse Rate [Apical] 67 Pulse Rate from SpO2 Sensor 67 66 Respiratory Rate 12 13 16 Respiratory Effort / Characteristics Respiratory Depth Respiratory Pattern Blood Pressure 157/71 H Blood Pressure [Right Arm] 157/71 H Blood Pressure Mean 126 Blood Pressure Mean [Right Arm] 99 Pulse Oximetry 94 93 95 Oxygen Delivery Method BiPAP Fraction of Inspired Oxygen Sepsis Recent Fever Within 48 Hours Sepsis New/Unexplained Change in Mental Status Sepsis Action Taken by Nursing 08/01/19 08:45 08/01/19 08:46 08/01/19 08:50 Temperature Temperature Source Pulse Rate 66 69 68 Pulse Rate [Apical] Pulse Rate from SpO2 Sensor 67 69 68 Respiratory Rate 12 14 14 Respiratory Effort / Characteristics Respiratory Depth Respiratory Pattern Blood Pressure 159/71 H 157/73 H Blood Pressure [Right Arm] Blood Pressure Mean 115 134 Blood Pressure Mean [Right Arm] Pulse Oximetry 96 93 93 Oxygen Delivery Method Fraction of Inspired Oxygen Sepsis Recent Fever Within 48 Hours Sepsis New/Unexplained Change in Mental Status Sepsis Action Taken by Nursing 08/01/19 08:51 08/01/19 08:55 08/01/19 09:00 Temperature Temperature Source Pulse Rate 71 72 Pulse Rate [Apical] Pulse Rate from SpO2 Sensor 64 72 73 Respiratory Rate 17 20 Respiratory Effort / Characteristics Respiratory Depth Respiratory Pattern Blood Pressure 168/78 H Blood Pressure [Right Arm] Blood Pressure Mean 84 Blood Pressure Mean [Right Arm] Pulse Oximetry 95 98 98 Oxygen Delivery Method Fraction of Inspired Oxygen Sepsis Recent Fever Within 48 Hours Sepsis New/Unexplained Change in Mental Status Sepsis Action Taken by Nursing 08/01/19 09:01 08/01/19 09:03 08/01/19 09:05 Temperature Temperature Source Pulse Rate 72 75 Pulse Rate [Apical] Pulse Rate from SpO2 Sensor 74 72 75 Respiratory Rate 21 17 Respiratory Effort / Characteristics Respiratory Depth Respiratory Pattern Blood Pressure 201/95 H 188/153 H 196/99 H Blood Pressure [Right Arm] Blood Pressure Mean 143 175 161 Blood Pressure Mean [Right Arm] Pulse Oximetry 95 95 97 Oxygen Delivery Method Fraction of Inspired Oxygen Sepsis Recent Fever Within 48 Hours Sepsis New/Unexplained Change in Mental Status Sepsis Action Taken by Nursing 08/01/19 09:06 08/01/19 09:07 08/01/19 09:10 Temperature Temperature Source Pulse Rate 76 76 Pulse Rate [Apical] 75 Pulse Rate from SpO2 Sensor 76 77 Respiratory Rate 20 18 17 Respiratory Effort / Characteristics Respiratory Depth Respiratory Pattern Blood Pressure 204/105 H Blood Pressure [Right Arm] 196/99 H Blood Pressure Mean 166 Blood Pressure Mean [Right Arm] 131 Pulse Oximetry 99 98 98 Oxygen Delivery Method BiPAP Fraction of Inspired Oxygen Sepsis Recent Fever Within 48 Hours Sepsis New/Unexplained Change in Mental Status Sepsis Action Taken by Nursing 08/01/19 09:11 08/01/19 09:15 08/01/19 09:16 Temperature Temperature Source Pulse Rate 75 73 73 Pulse Rate [Apical] Pulse Rate from SpO2 Sensor 75 74 75 Respiratory Rate 15 15 19 Respiratory Effort / Characteristics Respiratory Depth Respiratory Pattern Blood Pressure 192/106 H Blood Pressure [Right Arm] Blood Pressure Mean 145 Blood Pressure Mean [Right Arm] Pulse Oximetry 99 97 98 Oxygen Delivery Method Fraction of Inspired Oxygen Sepsis Recent Fever Within 48 Hours Sepsis New/Unexplained Change in Mental Status Sepsis Action Taken by Nursing 08/01/19 09:20 08/01/19 09:21 08/01/19 09:25 Temperature Temperature Source Pulse Rate 72 73 76 Pulse Rate [Apical] Pulse Rate from SpO2 Sensor 73 73 76 Respiratory Rate 15 18 18 Respiratory Effort / Characteristics Respiratory Depth Respiratory Pattern Blood Pressure 187/103 H 200/91 H Blood Pressure [Right Arm] Blood Pressure Mean 150 158 Blood Pressure Mean [Right Arm] Pulse Oximetry 98 97 98 Oxygen Delivery Method Fraction of Inspired Oxygen Sepsis Recent Fever Within 48 Hours Sepsis New/Unexplained Change in Mental Status Sepsis Action Taken by Nursing 08/01/19 09:26 08/01/19 09:30 08/01/19 09:31 Temperature Temperature Source Pulse Rate 74 73 72 Pulse Rate [Apical] Pulse Rate from SpO2 Sensor 74 73 71 Respiratory Rate 17 17 16 Respiratory Effort / Characteristics Respiratory Depth Respiratory Pattern Blood Pressure 188/104 H Blood Pressure [Right Arm] Blood Pressure Mean 155 Blood Pressure Mean [Right Arm] Pulse Oximetry 99 98 99 Oxygen Delivery Method Fraction of Inspired Oxygen Sepsis Recent Fever Within 48 Hours Sepsis New/Unexplained Change in Mental Status Sepsis Action Taken by Nursing 08/01/19 09:35 08/01/19 09:36 08/01/19 09:40 Temperature Temperature Source Pulse Rate 72 71 71 Pulse Rate [Apical] Pulse Rate from SpO2 Sensor 74 71 70 Respiratory Rate 14 19 15 Respiratory Effort / Characteristics Respiratory Depth Respiratory Pattern Blood Pressure 192/91 H 192/78 H Blood Pressure [Right Arm] Blood Pressure Mean 138 148 Blood Pressure Mean [Right Arm] Pulse Oximetry 97 96 98 Oxygen Delivery Method Fraction of Inspired Oxygen Sepsis Recent Fever Within 48 Hours Sepsis New/Unexplained Change in Mental Status Sepsis Action Taken by Nursing 08/01/19 09:45 08/01/19 09:46 08/01/19 09:50 Temperature Temperature Source Pulse Rate 70 71 68 Pulse Rate [Apical] Pulse Rate from SpO2 Sensor 70 71 68 Respiratory Rate 17 14 18 Respiratory Effort / Characteristics Respiratory Depth Respiratory Pattern Blood Pressure 193/86 H 182/116 H Blood Pressure [Right Arm] Blood Pressure Mean 141 149 Blood Pressure Mean [Right Arm] Pulse Oximetry 99 99 98 Oxygen Delivery Method Fraction of Inspired Oxygen Sepsis Recent Fever Within 48 Hours Sepsis New/Unexplained Change in Mental Status Sepsis Action Taken by Nursing 08/01/19 09:55 08/01/19 10:00 08/01/19 10:01 Temperature Temperature Source Pulse Rate 70 67 68 Pulse Rate [Apical] Pulse Rate from SpO2 Sensor 70 67 68 Respiratory Rate 19 15 19 Respiratory Effort / Characteristics Respiratory Depth Respiratory Pattern Blood Pressure 187/74 H 174/89 H Blood Pressure [Right Arm] Blood Pressure Mean 94 125 Blood Pressure Mean [Right Arm] Pulse Oximetry 97 97 99 Oxygen Delivery Method Fraction of Inspired Oxygen Sepsis Recent Fever Within 48 Hours Sepsis New/Unexplained Change in Mental Status Sepsis Action Taken by Nursing 08/01/19 10:05 Temperature Temperature Source Pulse Rate 67 Pulse Rate [Apical] Pulse Rate from SpO2 Sensor 65 Respiratory Rate 15 Respiratory Effort / Characteristics Respiratory Depth Respiratory Pattern Blood Pressure 182/95 H Blood Pressure [Right Arm] Blood Pressure Mean 134 Blood Pressure Mean [Right Arm] Pulse Oximetry 98 Oxygen Delivery Method Fraction of Inspired Oxygen Sepsis Recent Fever Within 48 Hours Sepsis New/Unexplained Change in Mental Status Sepsis Action Taken by Nursing Physical Exam GENERAL: Severe respiratory distress. On CPAP. CV: Tachycardic rate, regular rhythm, normal heart sounds and intact distal pulses. There is no peripheral edema. Palpable radial pulses bue. PULM/CHEST: Severe respiratory distress. Tachypneic. Expiratory wheezes bilaterally, inspiratory rales to the apices bilaterally, rhonchi bilaterally. Intercostal retractions. ABD: Soft. NEURO: She is alert and oriented to person, place, and time. Motor and sensation within normal limits. SKIN: Skin is warm and dry. She is not diaphoretic. Nicotine patch on the patient's left upper extremity. Course Course 0650: Received a call from EMS for patient with difficulty breathing and respiratory distress. Per EMS the patient's blood pressure was 233/141, respiratory rate 25, oxygen saturation 98% on CPAP. Sinus rhythm with rate of 98. Patient was having retractions, expiratory wheezes, and inspiratory rales. Instructed EMS to continue the CPAP, give 1 sublingual nitro, and 1 DuoNeb treatment. 0700: The patient was evaluated in room B1. A complete history and physical exam was performed. Patient in severe respiratory distress on CPAP. Patient transitioned to BiPAP. Per EMS the patient received 1 DuoNeb and no sublingual nitro. Patient extremely hypertensive on arrival in the emergency department. Based off her exam, there is concern for flash pulmonary edema. Sublingual nitro was given to the patient. Patient did state that the BiPAP was making her feel better. We will try to continue the patient on BiPAP to hold off on endotracheal intubation. 0730: Chest x-ray reviewed by me showed cardiomegaly with bilateral cephalization, confirming flash pulmonary edema. Patient remains hypertensive despite receiving 2 sublingual nitroglycerin. Will order nitro drip. 0814: Nursing staff spoke with the daughter who stated the patient recently stopped taking her medications and started smoking again. Patient oxygen saturation doing well on BiPAP. She reports her breathing is better. Patient asking for pain medication for her chronic pain. Morphine 4 mg IV push ordered. Blood pressure systolic in the 190s on 15 hortensia nitro drip. Lasix 40 mg ordered for the patient. I did discuss with Dr. Rama Pacebeverly hospitalist who stated she recently discharged the patient to hospice care. I did explain to her that the patient does not want treatment as she called 911 for help for breathing and asked for help with her breathing while in the emergency department. [facility] Hospitalist stated she would be down to evaluate the patient but is requesting that a rapid COVID screen be conducted as the patient was short of breath. I did explain to her that the patient has not had any known exposures, no fevers, and is most likely suffering from flash pulmonary edema due to the history that was given by the daughter of the patient not taking her home medications and starting smoking again, however [facility] Hospitalist asked that the order still be put in. Order for rapid COVID screening was placed at their request. 0835: Nitro drip turned off. 0907: [facility] Hospitalist team at bedside. Patient blood pressure is elevated in the systolic 200s again. Patient's nitro drip was restarted at 5 mcg/min. Administered Medications Nitroglycerin/Dextrose (Nitroglycerin/D5w 100 Mcg/Ml) 250 mls @ 3 mls/hr IV .Q24H [facility]; Protocol Stop: 08/31/19 07:29 Last Titration: 08/01/19 09:06 Dose: 5 mcg/min, 3 mls/hr Documented by: [id number] Titration: 08/01/19 08:35 Dose: 0 mcg/min, 0 mls/hr Documented by: [id number] Titration: 08/01/19 08:32 Dose: 10 mcg/min, 6 mls/hr Documented by: [id number] Admin: 08/01/19 07:30 Dose: 15 mcg/min, 9 mls/hr Documented by: [id number] Cosigned by: [id number] Potassium Chloride (K Denis / Wtr) 10 meq in 100 mls @ 100 mls/hr IV Q1H [facility] Stop: 08/01/19 11:59 Last Admin: 08/01/19 10:18 Dose: 100 mls/hr Documented by: [id number] Discontinued Medications Furosemide (Lasix) 40 mg IV NOW STA Stop: 08/01/19 08:05 Last Admin: 08/01/19 08:19 Dose: 40 mg Documented by: [id number] Miscellaneous () 1 ea N/A NOW STA Stop: 08/01/19 07:26 Last Admin: 08/01/19 08:31 Dose: 1 ea Documented by: [id number] Morphine Sulfate (Morphine Sulfate) 4 mg IV NOW STA Stop: 08/01/19 08:01 Last Admin: 08/01/19 08:19 Dose: 4 mg Documented by: [id number] Nitroglycerin (Nitrostat) 0.4 mg SL NOW STA Stop: 08/01/19 07:13 Last Admin: 08/01/19 07:15 Dose: 0.4 mg Documented by: [id number] Nitroglycerin (Nitrostat) Confirm Administered Dose 0.8 mg .ROUTE .STK-MED ONE Stop: 08/01/19 07:16 Last Admin: 08/01/19 07:28 Dose: Not Given Documented by: [id number] Nitroglycerin (Nitrostat) 0.4 mg SL NOW STA Stop: 08/01/19 07:26 Last Admin: 08/01/19 07:27 Dose: 0.4 mg Documented by: [id number] Ondansetron HCl (Zofran Odt) 4 mg PO NOW STA Stop: 08/01/19 07:12 Last Admin: 08/01/19 07:15 Dose: 4 mg Documented by: [id number] Ondansetron HCl (Zofran Odt) Confirm Administered Dose 4 mg .ROUTE .STK-MED ONE Stop: 08/01/19 07:14 Last Admin: 08/01/19 07:28 Dose: Not Given Documented by: [id number] Ondansetron HCl (Zofran) 4 mg IV NOW STA Stop: 08/01/19 07:26 Last Admin: 08/01/19 07:27 Dose: 4 mg Documented by: [id number] Ondansetron HCl (Zofran) Confirm Administered Dose 4 mg .ROUTE .STK-MED ONE Stop: 08/01/19 07:26 Last Admin: 08/01/19 07:29 Dose: Not Given Documented by: [id number] Critical Care Time Critical Care Time: Yes Total Critical Care Time: 122 I have personally spent greater than 122 minutes of critical care time in the direct management of this patient. This includes bedside care, interpretation of diagnostic studies, and testing, discussion with consultants, patient, and family members, and other required patient management activities. This 122 minutes is in excess of all separately billable procedures. Medical Decision Making Laboratory Data Result diagrams: 08/01/19 07:26 08/01/19 07:26 Lab Results 08/01/19 08/01/19 08/01/19 Range/Units 07:26 07:26 07:26 WBC 7.86 (4.8-10.8) K/uL RBC 4.03 L (4.2-5.4) M/uL Hgb 12.2 (12.0-16.0) g/dL Hct 39.3 (37-47) % MCV 97.5 (80-100) fL MCH 30.3 (25-34) pg MCHC 31.0 L (32-36) g/dL RDW Std Deviation 56.5 H (36.4-46.3) fL RDW Coeff of Sriram 16.0 H (11.5-14.5) % Plt Count 303 (130-400) K/uL MPV 9.8 (7.4-10.4) fL Immature Gran % (Auto) 0.0 % Neut % (Auto) 46.4 % Lymph % (Auto) 37.7 % [place] % (Auto) 8.7 % Eos % (Auto) 6.6 % Baso % (Auto) 0.6 % Immature Gran # (Auto) 0.00 (0.00-0.02) K/uL Neut # (Auto) 3.65 (1.4-6.5) K/uL Lymph # (Auto) 2.96 (1.2-3.4) K/uL [place] # (Auto) 0.68 H (0.11-0.59) K/uL Eos # (Auto) 0.52 H (0-0.5) K/uL Baso # (Auto) 0.05 (0-0.2) K/uL PT 10.7 (9.0-12.0) Seconds INR 1.0 (0.9-1.1) APTT 25.0 (21.0-31.0) Seconds PTT Ratio 0.9 VBG pH (7.36-7.41) VBG pCO2 (38-50) mmHg VBG pO2 mmHg VBG HCO3 mmol/L VBG O2 Saturation % VBG Base Excess mEq/L Barometric Pressure mm/Hg Sodium 139 (136-145) mmol/L Potassium 3.4 L (3.5-5.1) mmol/L Chloride 104 (98-107) mmol/L Carbon Dioxide 28 (21-32) mmol/L Anion Gap 7.0 (3-11) BUN 21 H (7-18) mg/dl Creatinine 1.34 H (0.6-1.2) mg/dl Est Cr Clr Drug Dosing 29.5 ml/min Est GFR ( Amer) 44.5 Est GFR (Non-Af Amer) 38.4 BUN/Creatinine Ratio 15.6 (10-20) Glucose 117 H (70-99) mg/dl Calcium 9.2 (8.5-10.1) mg/dl Magnesium 2.7 H (1.8-2.4) mg/dl Total Bilirubin 0.3 (0.2-1) mg/dl Direct Bilirubin 0.1 (0-0.2) mg/dl AST 15 (15-37) U/L ALT 14 (12-78) U/L Alkaline Phosphatase 126 H (45-117) U/L Troponin I < 0.015 (0-0.045) ng/ml NT-Pro-B Natriuret Pep 8214 H (0-1800) pg/ml Total Protein 8.2 (6.4-8.2) gm/dl Albumin 3.3 L (3.4-5.0) gm/dl Lipase 157 (73-393) U/L Urine Color Urine Appearance (Clear) Urine pH (4.5-7.5) Ur Specific [place] (1.000-1.030) Urine Protein (Negative) Urine Glucose (UA) (Negative) Urine Ketones (Negative) Urine Blood (Negative) Urine Nitrite (Negative) Urine Bilirubin (Negative) Urine Urobilinogen (Negative) Ur Leukocyte Esterase (Negative) Urine WBC (Auto) (0-5) /hpf Urine RBC (Auto) (0-4) /hpf U Hyaline Cast (Auto) (0-5) /lpf U Epithel Cells (Auto) (0-5) /lpf Urine Bacteria (Auto) (Negative) Ur Renal Epithelial Cell (0-5) /lpf COVID-19 PCR (Negative) SARS-CoV-2 RNA (RT-PCR) 08/01/19 08/01/19 08/01/19 Range/Units 07:26 08:26 08:30 WBC (4.8-10.8) K/uL RBC (4.2-5.4) M/uL Hgb (12.0-16.0) g/dL Hct (37-47) % MCV (80-100) fL MCH (25-34) pg MCHC (32-36) g/dL RDW Std Deviation (36.4-46.3) fL RDW Coeff of Sriram (11.5-14.5) % Plt Count (130-400) K/uL MPV (7.4-10.4) fL Immature Gran % (Auto) % Neut % (Auto) % Lymph % (Auto) % [place] % (Auto) % Eos % (Auto) % Baso % (Auto) % Immature Gran # (Auto) (0.00-0.02) K/uL Neut # (Auto) (1.4-6.5) K/uL Lymph # (Auto) (1.2-3.4) K/uL [place] # (Auto) (0.11-0.59) K/uL Eos # (Auto) (0-0.5) K/uL Baso # (Auto) (0-0.2) K/uL PT (9.0-12.0) Seconds INR (0.9-1.1) APTT (21.0-31.0) Seconds PTT Ratio VBG pH 7.27 L (7.36-7.41) VBG pCO2 66 H (38-50) mmHg VBG pO2 48 mmHg VBG HCO3 30 mmol/L VBG O2 Saturation 77.3 % VBG Base Excess 1.4 mEq/L Barometric Pressure 729.9 mm/Hg Sodium (136-145) mmol/L Potassium (3.5-5.1) mmol/L Chloride (98-107) mmol/L Carbon Dioxide (21-32) mmol/L Anion Gap (3-11) BUN (7-18) mg/dl Creatinine (0.6-1.2) mg/dl Est Cr Clr Drug Dosing ml/min Est GFR ( Amer) Est GFR (Non-Af Amer) BUN/Creatinine Ratio (10-20) Glucose (70-99) mg/dl Calcium (8.5-10.1) mg/dl Magnesium (1.8-2.4) mg/dl Total Bilirubin (0.2-1) mg/dl Direct Bilirubin (0-0.2) mg/dl AST (15-37) U/L ALT (12-78) U/L Alkaline Phosphatase (45-117) U/L Troponin I (0-0.045) ng/ml NT-Pro-B Natriuret Pep (0-1800) pg/ml Total Protein (6.4-8.2) gm/dl Albumin (3.4-5.0) gm/dl Lipase (73-393) U/L Urine Color Yellow Urine Appearance Clear (Clear) Urine pH 6.5 (4.5-7.5) Ur Specific [place] 1.015 (1.000-1.030) Urine Protein 3+ H (Negative) Urine Glucose (UA) Negative (Negative) Urine Ketones Negative (Negative) Urine Blood Trace H (Negative) Urine Nitrite Negative (Negative) Urine Bilirubin Negative (Negative) Urine Urobilinogen Negative (Negative) Ur Leukocyte Esterase Trace H (Negative) Urine WBC (Auto) 5-10 H (0-5) /hpf Urine RBC (Auto) 5-10 H (0-4) /hpf U Hyaline Cast (Auto) 1-5 (0-5) /lpf U Epithel Cells (Auto) >30 H (0-5) /lpf Urine Bacteria (Auto) Negative (Negative) Ur Renal Epithelial Cell 0-5 (0-5) /lpf COVID-19 PCR (Negative) SARS-CoV-2 RNA (RT-PCR) Cancelled 08/01/19 Range/Units 08:30 WBC (4.8-10.8) K/uL RBC (4.2-5.4) M/uL Hgb (12.0-16.0) g/dL Hct (37-47) % MCV (80-100) fL MCH (25-34) pg MCHC (32-36) g/dL RDW Std Deviation (36.4-46.3) fL RDW Coeff of Sriram (11.5-14.5) % Plt Count (130-400) K/uL MPV (7.4-10.4) fL Immature Gran % (Auto) % Neut % (Auto) % Lymph % (Auto) % [place] % (Auto) % Eos % (Auto) % Baso % (Auto) % Immature Gran # (Auto) (0.00-0.02) K/uL Neut # (Auto) (1.4-6.5) K/uL Lymph # (Auto) (1.2-3.4) K/uL [place] # (Auto) (0.11-0.59) K/uL Eos # (Auto) (0-0.5) K/uL Baso # (Auto) (0-0.2) K/uL PT (9.0-12.0) Seconds INR (0.9-1.1) APTT (21.0-31.0) Seconds PTT Ratio VBG pH (7.36-7.41) VBG pCO2 (38-50) mmHg VBG pO2 mmHg VBG HCO3 mmol/L VBG O2 Saturation % VBG Base Excess mEq/L Barometric Pressure mm/Hg Sodium (136-145) mmol/L Potassium (3.5-5.1) mmol/L Chloride (98-107) mmol/L Carbon Dioxide (21-32) mmol/L Anion Gap (3-11) BUN (7-18) mg/dl Creatinine (0.6-1.2) mg/dl Est Cr Clr Drug Dosing ml/min Est GFR ( Amer) Est GFR (Non-Af Amer) BUN/Creatinine Ratio (10-20) Glucose (70-99) mg/dl Calcium (8.5-10.1) mg/dl Magnesium (1.8-2.4) mg/dl Total Bilirubin (0.2-1) mg/dl Direct Bilirubin (0-0.2) mg/dl AST (15-37) U/L ALT (12-78) U/L Alkaline Phosphatase (45-117) U/L Troponin I (0-0.045) ng/ml NT-Pro-B Natriuret Pep (0-1800) pg/ml Total Protein (6.4-8.2) gm/dl Albumin (3.4-5.0) gm/dl Lipase (73-393) U/L Urine Color Urine Appearance (Clear) Urine pH (4.5-7.5) Ur Specific [place] (1.000-1.030) Urine Protein (Negative) Urine Glucose (UA) (Negative) Urine Ketones (Negative) Urine Blood (Negative) Urine Nitrite (Negative) Urine Bilirubin (Negative) Urine Urobilinogen (Negative) Ur Leukocyte Esterase (Negative) Urine WBC (Auto) (0-5) /hpf Urine RBC (Auto) (0-4) /hpf U Hyaline Cast (Auto) (0-5) /lpf U Epithel Cells (Auto) (0-5) /lpf Urine Bacteria (Auto) (Negative) Ur Renal Epithelial Cell (0-5) /lpf COVID-19 PCR NEGATIVE (Negative) SARS-CoV-2 RNA (RT-PCR) [facility] Narrative 0650: Received a call from EMS for patient with difficulty breathing and resp iratory distress. Per EMS the patient's blood pressure was 233/141, respiratory rate 25, oxygen saturation 98% on CPAP. Sinus rhythm with rate of 98. Patient was having retractions, expiratory wheezes, and inspiratory rales. Instructed EMS to continue the CPAP, give 1 sublingual nitro, and 1 DuoNeb treatment. 0700: The patient was evaluated in room B1. A complete history and physical exam was performed. Patient in severe respiratory distress on CPAP. Patient transitioned to BiPAP. Per EMS the patient received 1 DuoNeb and no sublingual nitro. Patient extremely hypertensive on arrival in the emergency department. Based off her exam, there is concern for flash pulmonary edema. Sublingual nitro was given to the patient. Patient did state that the BiPAP was making her feel better. We will try to continue the patient on BiPAP to hold off on endotracheal intubation. 0730: Chest x-ray reviewed by me showed cardiomegaly with bilateral cephalization, confirming flash pulmonary edema. Patient remains hypertensive despite receiving 2 sublingual nitroglycerin. Will order nitro drip. 0814: Nursing staff spoke with the daughter who stated the patient recently stopped taking her medications and started smoking again. Patient oxygen saturation doing well on BiPAP. She reports her breathing is better. Patient asking for pain medication for her chronic pain. Morphine 4 mg IV push ordered. Blood pressure systolic in the 190s on 15 hortensia nitro drip. Lasix 40 mg ordered for the patient. I did discuss with Dr. Rama [facility] who stated she recently discharged the patient to hospice care. I did explain to her that the patient does not want treatment as she called 911 for help for breathing and asked for help with her breathing while in the emergency department. [facility] would be [facility] to evaluate the patient but is requesting that a rapid COVID screen be conducted as the patient was short of breath. I did explain to her that the patient has not had any known exposures, no fevers, and is most likely suffering from flash pulmonary edema due to the history that was given by the daughter of the patient not taking her home medications and starting smoking again, however [facility] that the order still be put in. Order for rapid COVID screening was placed at their request. 0835: Nitro drip turned off. 0907: Rehana lalist team at bedside. Patient blood pressure is elevated in the systolic 200s again. Patient's nitro drip was restarted at 5 mcg/min. Impression & Plan Flash pulmonary edema, Tobacco use disorder, Hypertension, Diastolic CHF, COPD exacerbation, Hypoxia Discharge Plan Visit Data *Final* Discharge Date/Time: 08/01/19 11:01 Chief Complaint: Respiratory Distress Stated Complaint: respiratory distress ED Provider: Jean Bazan Discharge Problem: Flash pulmonary edema, Tobacco use disorder, Hypertension, Diastolic CHF, COPD exacerbation, Hypoxia Patient Disposition: Admitted As Inpatient Discharge Instructions Interventions: ED Discharge Assessment Last Done: 08/01/19 11:01 Discharge Problem: Hypertension Qualifiers: Hypertension type: unspecified Qualified Code(s): I10 - Essential (primary) hypertension Diastolic CHF Qualifiers: Heart failure chronicity: acute on chronic Qualified Code(s): I50.33 - Acute on chronic diastolic (congestive) heart failure
[2019-08-01] MEDS ORDERED: FUROSEMIDE 40 MG/4 ML VIAL IV STA (08:04)
[2019-08-01 08:07] LABS: Alkaline Phosphatase 126 U/L (45-117); Bilirubin,Total 0.3 mg/dl (0.2-1); NT Pro B Type Natriuretic Pept 8214 pg/ml (0-1800); Total Protein 8.2 gm/dl (6.4-8.2); Troponin I < 0.015 ng/ml (0-0.045)
[2019-08-01 08:45] LABS: Appearance Urine Clear (Clear); Bacteria Urine Automated Negative (Negative); Bilirubin Urine Negative (Negative); Blood Urine Trace (Negative); Color Urine Yellow; Epithelial Cell Urine Auto >30 /lpf (0-5); Glucose Urine UA Negative (Negative); Ketones Urine Negative (Negative); Leukocyte Esterase Urine Trace (Negative); Nitrite Urine Negative (Negative); Protein Urine 3+ (Negative); Specific Gravity Urine 1.015 (1.000-1.030); Urobilinogen Urine Negative (Negative); pH Urine 6.5 (4.5-7.5)
[2019-08-01 08:54] LABS: Renal Epithelial Cells Urine 0-5 /lpf (0-5)
--- NOTE | 2019-08-01 09:25 | History & Physical Report ---
Date of Service August 01, 2019 Assessment & Plan (1) Acute and chronic respiratory failure: (2) Acute on chronic diastolic (congestive) heart failure: (3) COPD (chronic obstructive pulmonary disease): Chronic respiratory failure on 5L oxygen Pt is 74 y/o F with PMH COPD, chronic respiratory on 5 L oxygen, nonobstructive CAD on 2010 cath, CVA, chronic diastolic congestive heart failure, HTN, CKD III, tobacco use, iron deficiency anemia, sleep apnea presented to ER for shortness of breath. In ER pt was found to be in respiratory distress, hypertensive, hypoxic Initial vitals pt afebrile, P: 84, R: 32, BP: 204/156, 85% on RA. In ER started on BiPAP, given sublingual nitro, nitro drip was started, and given 40 mg Lasix IV. Patient with decreased respiratory distress on BiPAP. Chest x-ray consistent with CHF. No leukocytosis, Negative troponin. ABG was ordered however pt refused Covid 19 PCR Admit to ICU Further treatment plan per housing grant analyst Consult cardiology (4) Hypokalemia: K: 3.4 IV potassium ordered (5) CKD (chronic kidney disease), stage III: Cr: 1.34. Recent baseline Cr ~1.2 (6) Hypertension: Hypertensive in ER, improved on nitro drip (7) CVA (cerebral vascular accident): (8) Depression: (9) Sleep apnea: (10) Tobacco use disorder: admit ICU DNR/DNI as per discussion with pt and pt's daughter Annmarie Follows with Dr Quintanilla for routine care Janie Robles PA-C acted as scribe. See addendum for Dr Wyatt PE, Assessment and plan History of Present Illness Chief Complaint: SOB Primary Care Provider: Lena Quintanilla, DO Pt is 74 y/o F with PMH COPD, chronic respiratory on 5 L oxygen, nonobstructive CAD on 2010 cath, CVA, chronic diastolic congestive heart failure, HTN, CKD III, tobacco use, iron deficiency anemia, sleep apnea presented to ER for shortness of breath. Patient reports is been having increased shortness of breath worsened this morning. Denies chest pain, N/V, fever/chills. Denies known Covid contacts. Has granddaughter and aid coming in to house. It is reported earlier patient was on Lasix 60 mg daily and was having dizziness so that was lowered to 40 mg daily however patient has not been taking her medications. Patient has been continuing to smoke and has not been taking her medications regularly. EMS reported patient was found to be in respiratory distress with RR: 25, was on CPAP with O2 98%, BP 233/141, P: 98 and was given 1 DuoNeb treatment. Upon ER arrival patient remains in respiratory stress on CPAP and was transitioned to BiPAP. She was given sublingual nitro, nitro drip was started, and given 40 mg Lasix IV. Patient with decreased respiratory distress on BiPAP. Chest x-ray consistent with CHF. Patient was also given morphine for her chronic hip pain. Patient being admitted for further evaluation and treatment. Hospitalist physician spoke to patient and patient's daughter, Jennifer Salazar and are in agreement that patient is DNR, DNI. Patient does want other treatments. Pt with history hospitalization in 05/2019 for flash pulmonary edema, acute decompensated heart failure, acute respiratory failure. During that admission cardiac cath was recommended, however patient declined and is not interested in any invasive procedures. Palliative care was consulted Echo: 04/2019: EF: 55% to 60%, moderately dilated left atrium, mild mitral regurgitation, mild tricuspid regurgitation, pulmonary artery systolic pressure was 60-70 mmHg, grade 2 diastolic dysfunction. Echo 05/2019: EF 55 to 60%, mild concentric LVH, no regional wall motion abnormalities noted. Allergies Allergy/AdvReac Type Severity Reaction Status Date / Time ciprofloxacin Allergy Mild ITCHY Verified 08/01/19 07:48 azithromycin Allergy Unknown Unknown Verified 08/01/19 07:48 Nitrate Analogues Allergy Unknown UNSURE; Verified 08/01/19 07:48 BUT PATIENT TAKES NITROSTAT PER ADMIT MED REC. nitrofurantoin Allergy Unknown UNSURE Verified 08/01/19 07:48 pneumococcal vaccine Allergy Unknown unk Verified 08/01/19 07:48 Influenza Virus Vaccines AdvReac Mild HIVES ON Verified 08/01/19 07:48 THE SITE Home Medications Home Medications Medication Instructions Recorded Confirmed Type albuterol sulfate [Ventolin HFA] 2 puff INHALATION QID PRN 12/28/17 08/01/19 History aspirin 81 mg PO QAM 12/28/17 08/01/19 History clopidogrel 75 mg PO QAM 12/28/17 08/01/19 History fluticasone propionate 2 spray INTRANASAL DAILY PRN 12/28/17 08/01/19 History folic acid 1 mg PO DAILY 12/28/17 08/01/19 History metoprolol succinate 12.5 mg PO QAM 12/28/17 08/01/19 History nitroglycerin 0.4 mg SUBLINGUAL DIRECTED PRN 12/28/17 08/01/19 History hydrocodone-acetaminophen 1 tab PO Q8H PRN 5 Days #15 tab 03/24/19 08/01/19 Rx gabapentin 300 mg PO TID 05/09/19 08/01/19 History sennosides-docusate sodium 1 tabcap PO DAILY PRN #30 tab 05/13/19 08/01/19 Rx [Senokot-S] Incruse Ellipta 1 inh INHALATION DAILY 06/18/19 08/01/19 History potassium chloride 20 meq PO QAM 06/18/19 08/01/19 History mupirocin 1 applic TOPICAL UD 08/01/19 08/01/19 History sertraline 25 mg PO DAILY 08/01/19 08/01/19 History Past Med/Surg History Medical History Avascular necrosis (Chronic) CAD (coronary artery disease) (Chronic) Cardiac cath 2010-nonobstructive disease Carotid stenosis (Chronic) Chronic hip pain Chronic respiratory failure with hypoxia (Chronic) CKD (chronic kidney disease), stage III COPD (chronic obstructive pulmonary disease) (Chronic) CVA (cerebral vascular accident) (Chronic) Depression (Chronic) Diastolic CHF (Chronic) Dyslipidemia (Chronic) Hip pain, right (Chronic) HTN (hypertension) (Acute) Hypertension (Chronic) DAYNA (iron deficiency anemia) (Chronic) IPMN (intraductal papillary mucinous neoplasm) (Chronic) Lumbar back pain (Chronic) PAD (peripheral artery disease) (Chronic) S/P stenting of the right distal common and right external iliac arteries Pancreatic duct stricture (Chronic) S/P stent Recurrent pancreatitis (Chronic) Sleep apnea (Chronic) Tobacco use disorder (Chronic) Surgical History H/O ventral hernia repair (Chronic) History of appendectomy (Chronic) History of cholecystectomy (Chronic) History of hysterectomy (Chronic) Family History Mother Stroke Father Stroke Social History Preferred Language: Arabic Communication Ability: Effective Visual Impairment: No Limitations Fur Puller Required: No Beliefs That Will Affect Care: None marital status: / Current Living Situation: Alone Current Living Situation Comment: Caregivers 9a-5p daily x 40hrs/wk Other Information That Helps Us Care for You: No Feels Safe at Home: Yes Safety Concerns: Feels Safe At This Time Smoking Status: Current every day smoker Tobacco Type: cigarettes ; Cigarettes Per Day: 20 ; Do You Dip or Chew Tobacco: No ; Second Hand Exposure: No ; Tobacco Cessation Education Requested by Patient: No Hx Alcohol Use: Yes Alcohol type: wine Hx Substance Use: Yes substance use type: painkillers Review of Systems Review of Systems: Further ROS difficult to obtain at this time with pt on bipap. Physical Exam Physical Exam: Per Attending physician Results & Data Results & Data ([facility]) Vital Signs (Past 12 Hours) Vital Signs Temp Pulse Pulse Resp BP BP Pulse Ox 08/01/19 09:11 75 15 99 08/01/19 09:10 76 17 204/105 H 98 08/01/19 09:07 75 18 196/99 H 98 08/01/19 09:06 76 20 99 08/01/19 09:05 75 17 196/99 H 97 08/01/19 09:03 72 21 188/153 H 95 08/01/19 09:01 201/95 H 95 08/01/19 09:00 98 08/01/19 08:55 72 20 168/78 H 98 08/01/19 08:51 71 17 95 08/01/19 08:50 68 14 157/73 H 93 08/01/19 08:46 69 14 93 08/01/19 08:45 66 12 159/71 H 96 08/01/19 08:42 67 16 157/71 H 95 08/01/19 08:41 66 13 93 08/01/19 08:40 67 12 157/71 H 94 08/01/19 08:36 67 19 94 08/01/19 08:35 68 14 149/68 H 93 08/01/19 08:30 69 15 139/63 91 08/01/19 08:25 71 15 167/73 H 93 08/01/19 08:20 76 13 174/76 H 93 08/01/19 08:15 78 22 183/80 H 92 08/01/19 08:11 76 16 89 L 08/01/19 08:10 76 13 197/79 H 90 08/01/19 08:06 91 08/01/19 08:05 196/86 H 93 08/01/19 08:01 93 08/01/19 08:00 191/92 H 93 08/01/19 07:56 93 08/01/19 07:55 195/85 H 93 08/01/19 07:51 92 08/01/19 07:50 193/101 H 92 08/01/19 07:46 92 08/01/19 07:45 198/93 H 93 08/01/19 07:41 92 08/01/19 07:40 85 17 193/119 H 92 08/01/19 07:35 85 19 201/134 H 93 08/01/19 07:32 89 20 218/105 H 95 08/01/19 07:30 91 H 18 95 08/01/19 07:25 98 H 18 96 08/01/19 07:24 100 H 18 244/127 H 97 08/01/19 07:20 97 08/01/19 07:15 120 H 33 H 88 L 08/01/19 07:13 105 H 33 H 89 L 08/01/19 07:11 97 H 19 204/156 H 98 08/01/19 07:05 36.7 C 84 32 H 204/156 H 85 L Laboratory Results Short CBC 08/01/19 Range/Units 07:26 WBC 7.86 (4.8-10.8) K/uL Hgb 12.2 (12.0-16.0) g/dL Hct 39.3 (37-47) % Plt Count 303 (130-400) K/uL BMP 08/01/19 07:26 Sodium 139 Potassium 3.4 L Chloride 104 Carbon Dioxide 28 BUN 21 H Creatinine 1.34 H Glucose 117 H Calcium 9.2 Cardiac Enzymes 08/01/19 Range/Units 07:26 Troponin I < 0.015 (0-0.045) ng/ml Liver Function 08/01/19 Range/Units 07:26 Total Bilirubin 0.3 (0.2-1) mg/dl Direct Bilirubin 0.1 (0-0.2) mg/dl AST 15 (15-37) U/L ALT 14 (12-78) U/L Alkaline Phosphatase 126 H (45-117) U/L Albumin 3.3 L (3.4-5.0) gm/dl Urine 08/01/19 Range/Units 08:26 Urine Color Yellow Urine Appearance Clear (Clear) Urine pH 6.5 (4.5-7.5) Ur Specific [place] 1.015 (1.000-1.030) Urine Protein 3+ H (Negative) Urine Glucose (UA) Negative (Negative) Diagnostic Findings CXR: IMPRESSION: Congestive heart failure superimposed upon chronic parenchymal prominence. Supervising Physician Co-Signing Physician Notes Pt is 74 y/o F with PMH COPD, chronic respiratory on 5 L oxygen, nonobstructive CAD on 2010 cath, CVA, chronic diastolic congestive heart failure, HTN, CKD III, tobacco use, iron deficiency anemia, sleep apnea presented to ER for shortness of breath. In ER pt was found to be in respiratory distress, hypertensive, hypoxic. Initial vitals pt afebrile, P: 84, R: 32, BP: 204/156, 85% on RA. In ER started on BiPAP, given sublingual nitro, nitro drip was started, and given 40 mg Lasix IV. Patient with decreased respiratory distress on BiPAP. Chest x-ray consistent with CHF/ flash pulmonary edema. No leukocytosis, Negative troponin. ABG was ordered however pt refused Covid 19 PCR - negative Admit to ICU - Further treatment plan per housing grant analyst, Consult cardiology Physical exam: GENERAL: elderly frail female, in resp. distress, on BiPAP, currently feeling better and able to answer questions HEENT: NC/AT, no icterus. EOMI, PERRL CARDIOVASCULAR: S1, S2 heard, regular rate and rhythm RESPIRATORY SYSTEM: + accessory muscle use, on BiPAP, + diffuse loud crackles ABDOMEN: Soft, bowel sounds present, nontender. No distention. CENTRAL NERVOUS SYSTEM: Alert and oriented x3, no facial symmetry, speech fluent, moves all extremities spontaneously EXTREMITIES: No lower extremity edema, moves all 4 extremities spontaneously SKIN: warm, dry, no rashes or lesions Pt with history hospitalization in 05/2019 for flash pulmonary edema, acute decompensated heart failure, acute respiratory failure. During that admission cardiac cath was recommended, however patient declined and is not interested in any invasive procedures. Palliative care was consulted. Discussed CODE STATUS, patient states in the presence of her daughter in the ER today that she would not want to be intubated, but she also does not want to feel anxious and sick, she did say that she would want to have medication on in case she is feeling worse and she is still conscious. She does understand that she would most likely then , in patient's own words, "fell asleep and not wake up". DNR/DNI MD Laura (1) COPD (chronic obstructive pulmonary disease) COPD type: unspecified COPD Qualified Code(s): J44.9 - Chronic obstructive pulmonary disease, unspecified
[2019-08-01] MEDS: POTASSIUM CHLORIDE / WTR 10 MEQ/100 ML PLCT IV SCH ×2 (10:18→12:17)
[2019-08-01] MEDS ORDERED: ICU PROTOCOL FOR HYPERGLYCEMIA PRN (11:17)
[2019-08-01] MEDS ORDERED: NITROGLYCERIN SL 0.4 MG/TAB TAB SL PRN (12:39)
[2019-08-01] MEDS ORDERED: ALBUTEROL HFA 8 GM INHALER INH PRN (12:39)
[2019-08-01] MEDS ORDERED: DOCUSATE SODIUM/SENNA 50/8.6MG TAB PO PRN (12:39)
[2019-08-01] MEDS ORDERED: FLUTICASONE PROPIONATE NA SPR 16 GM BTL NAE PRN (12:39)
[2019-08-01] MEDS ORDERED: MUPIROCIN 2% EXT SCH (12:45)
--- NOTE | 2019-08-01 12:59 | Critical Care Consultation ---
Date of Consultation August 01, 2019 Assessment & Plan (1) Acute and chronic respiratory failure: Impression: 74-year-old female with chronic hypoxemic respiratory failure admitted now with hypertensive urgency and pulmonary edema. She is markedly improved with control of her blood pressure, 1 dose of diuretics, and a brief trial of noninvasive positive pressure ventilation. She appears to be back to her baseline at 5 L/min. She again is not interested in pursuing aggressive interventions at this point time and has declined a blood gas during this hospitalization. Recommendations: 1. Acute on chronic hypoxemic and hypercarbic respiratory failure. Review of prior blood gases in her venous blood gas on this admission demonstrate likely chronic hypercarbic respiratory failure and the patient may benefit from nocturnal positive airway pressure. Will pursue a trial of BiPAP nightly at 11/30 to see if she can tolerate it. If she does well, could consider trying to get the patient set up with an outpatient trilogy unit. Outpatient PFTs may also be beneficial. 2. Hypertensive urgency: The patient's blood pressure is currently well controlled. We will continue her metoprolol. Will use as needed hydralazine if blood pressure is difficult to control. Would try and target blood pressure of less than 125/75. She does have diastolic dysfunction noted on echocardiogram from May of this year. 3. Pulmonary hypertension: Suspect group 2 and group 3. No indication for va sodilators or additional invasive diagnostic testing. 4. The patient does request to meet again with palliative care. She is interested in hospice. This may be appropriate. 5. Likely severe obstructive lung disease: PFTs are not available. She is not overtly bronchospastic currently. We will continue as needed inhalers. No indication for steroids or antibiotics from my standpoint currently. The patient is doing quite well and appears to be back at her baseline at this point time. I do not think she requires ICU level care at this point time and she will be returned back to the care of the hospitalist. We will continue to follow her for pulmonary issues. Feel free to contact us with any concerns.. The above recommendations and plan were discussed with the patient as well as yunier bedside ICU nurse. Questions were answered to the best my ability (2) Flash pulmonary edema: (3) Hypertensive urgency: (4) CKD (chronic kidney disease), stage III: (5) COPD (chronic obstructive pulmonary disease): History of Present Illness Attending Physician: Dano Wolff MD History of Present Illness Asked by hospitalist to assist in management this patient with acute on chronic hypoxemic respiratory failure secondary to hypertensive urgency. History is obtained from review electronic medical record as well as discussion with the patient bedside. The patient is a 74-year-old female with an over [id number] history of tobacco abuse who continues to smoke cigarettes at the rate of 5 to 6/day. She is chronically on oxygen at 5 L/min. She has been admitted to the facility on multiple occasions for hypertensive urgency and flash pulmonary edema. She has declined evaluation from a cardiac standpoint previously. She has never seen a electric power superintendent in the outpatient setting. PFTs are not available. She has met with palliative care on several occasions during prior hospitalizations and during her last hospitalization it was recommended that the patient go home see how she did and then potentially consider hospice. The patient awoke this morning acutely short of breath. EMS was activated and she was brought to the emergency room. She was found to be markedly hypertensive. She was placed on noninvasive positive pressure ventilation and initiated on a nitroglycerin infusion. She denied chest pain. Chest x-ray demonstrated diffuse parenchymal infiltrates. She received a dose of Lasix in the emergency room. She was admitted by the hospitalist service due to her need for BiPAP was felt to benefit from potential ICU admission. She was assessed for COVID in the emergency room which was negative. I assessed the patient on arrival to the ICU. She is now down to facemask and breathing on her chronic 5 L/min. She denies shortness of breath, cough, fevers, chills, or nausea vomiting or diarrhea. No lower extremity edema. She denies any dietary indiscretion. She states she has been compliant with her outpatient antihypertensive regimen. The patient quickly states that she is DO NOT INTUBATE DO NOT RESUSCITATE and would like to again meet with palliative care. She does not enjoy returning to the hospital and asks what options can be done to avoid this scenario. Allergies Allergy/AdvReac Type Severity Reaction Status Date / Time ciprofloxacin Allergy Mild ITCHY Verified 08/01/19 07:48 azithromycin Allergy Unknown Unknown Verified 08/01/19 07:48 Nitrate Analogues Allergy Unknown UNSURE; Verified 08/01/19 07:48 BUT PATIENT TAKES NITROSTAT PER ADMIT MED REC. nitrofurantoin Allergy Unknown UNSURE Verified 08/01/19 07:48 pneumococcal vaccine Allergy Unknown unk Verified 08/01/19 07:48 Influenza Virus Vaccines AdvReac Mild HIVES ON Verified 08/01/19 07:48 THE SITE Home Medications Home Medications Medication Instructions Recorded Confirmed Type albuterol sulfate [Ventolin HFA] 2 puff INHALATION QID PRN 12/28/17 08/01/19 History aspirin 81 mg PO QAM 12/28/17 08/01/19 History clopidogrel 75 mg PO QAM 12/28/17 08/01/19 History fluticasone propionate 2 spray INTRANASAL DAILY PRN 12/28/17 08/01/19 History folic acid 1 mg PO DAILY 12/28/17 08/01/19 History metoprolol succinate 12.5 mg PO QAM 12/28/17 08/01/19 History nitroglycerin 0.4 mg SUBLINGUAL DIRECTED PRN 12/28/17 08/01/19 History hydrocodone-acetaminophen 1 tab PO Q8H PRN 5 Days #15 tab 03/24/19 08/01/19 Rx gabapentin 300 mg PO TID 05/09/19 08/01/19 History sennosides-docusate sodium 1 tabcap PO DAILY PRN #30 tab 05/13/19 08/01/19 Rx [Senokot-S] Incruse Ellipta 1 inh INHALATION DAILY 06/18/19 08/01/19 History potassium chloride 20 meq PO QAM 06/18/19 08/01/19 History mupirocin 1 applic TOPICAL UD 08/01/19 08/01/19 History sertraline 25 mg PO DAILY 08/01/19 08/01/19 History Patient History Medical History Avascular necrosis (Chronic) CAD (coronary artery disease) (Chronic) Cardiac cath 2010-nonobstructive disease Carotid stenosis (Chronic) Chronic hip pain Chronic respiratory failure with hypoxia (Chronic) CKD (chronic kidney disease), stage III COPD (chronic obstructive pulmonary disease) (Chronic) CVA (cerebral vascular accident) (Chronic) Depression (Chronic) Diastolic CHF (Chronic) Dyslipidemia (Chronic) Hip pain, right (Chronic) HTN (hypertension) (Acute) Hypertension (Chronic) DAYNA (iron deficiency anemia) (Chronic) IPMN (intraductal papillary mucinous neoplasm) (Chronic) Lumbar back pain (Chronic) PAD (peripheral artery disease) (Chronic) S/P stenting of the right distal common and right external iliac arteries Pancreatic duct stricture (Chronic) S/P stent Recurrent pancreatitis (Chronic) Sleep apnea (Chronic) Tobacco use disorder (Chronic) Surgical History H/O ventral hernia repair (Chronic) History of appendectomy (Chronic) History of cholecystectomy (Chronic) History of hysterectomy (Chronic) Family History Mother Stroke Father Stroke Social History Preferred Language: Cameroonian Communication Ability: Effective Visual Impairment: No Limitations Industrial Engineering Director Required: No Beliefs That Will Affect Care: None marital status: / Current Living Situation: Alone Current Living Situation Comment: Caregivers 9a-5p daily x 40hrs/wk Other Information That Helps Us Care for You: No Feels Safe at Home: Yes Safety Concerns: Feels Safe At This Time Smoking Status: Current every day smoker Tobacco Type: cigarettes ; Cigarettes Per Day: 20 ; Do You Dip or Chew Tobacco: No ; Second Hand Exposure: No ; To bacco Cessation Education Requested by Patient: No Hx Alcohol Use: Yes Alcohol type: wine Hx Substance Use: Yes substance use type: painkillers Review of Systems Review of Systems: All systems reviewed & are unremarkable except as noted in HPI & below Physical Exam Physical Exam: GENERAL: elderly frail female, not in acute distress, using 5L of O2 via NC HEENT: NC/AT, no icterus. EOMI, PERRL NECK: No JVD, no neck masses CARDIOVASCULAR: S1, S2 heard, regular rate and rhythm, no murmur, no gallop. RESPIRATORY SYSTEM: No accessory muscle use. Using 5L O2 via NC, somewhat diminished lung sounds, +bibasilar crackles ABDOMEN: Soft, bowel sounds present, nontender. No distention. CENTRAL NERVOUS SYSTEM: Alert and oriented x3, no facial symmetry, speech fluent, moves all extremities spontaneously and without difficulty EXTREMITIES: No lower extremity edema, moves all 4 extremities spontaneously Results & Data Results & Data ([facility]) Vital Signs (Past 12 Hours) Vital Signs Temp Pulse Pulse Resp BP BP Pulse Ox 08/01/19 11:57 68 15 132/72 94 08/01/19 11:49 68 14 128/69 08/01/19 11:27 75 15 123/70 89 L 08/01/19 11:18 36.7 C 75 18 123/70 93 08/01/19 11:00 67 15 169/67 H 94 08/01/19 10:56 66 12 98 08/01/19 10:55 67 16 169/82 H 99 08/01/19 10:51 66 13 100 08/01/19 10:50 68 16 172/88 H 100 08/01/19 10:46 65 15 97 08/01/19 10:45 66 12 177/74 H 99 08/01/19 10:40 68 18 171/70 H 94 08/01/19 10:36 66 18 100 08/01/19 10:35 65 25 H 174/77 H 98 08/01/19 10:30 66 24 178/74 H 98 08/01/19 10:26 66 14 99 08/01/19 10:25 69 17 182/73 H 98 08/01/19 10:21 69 18 99 08/01/19 10:20 69 15 176/77 H 99 08/01/19 10:15 68 14 186/87 H 98 08/01/19 10:10 69 16 167/123 H 98 08/01/19 10:06 69 13 100 08/01/19 10:05 67 15 182/95 H 98 08/01/19 10:01 68 19 99 08/01/19 10:00 67 15 174/89 H 97 08/01/19 09:55 70 19 187/74 H 97 08/01/19 09:50 68 18 182/116 H 98 08/01/19 09:46 71 14 99 08/01/19 09:45 70 17 193/86 H 99 08/01/19 09:40 71 15 192/78 H 98 08/01/19 09:36 71 19 96 05 09:35 72 14 192/91 H 97 08/01/19 09:31 72 16 99 05 09:30 73 17 188/104 H 98 08/01/19 09:26 74 17 99 08/01/19 09:25 76 18 200/91 H 98 06/05/20 09:21 73 18 97 06/05/20 09:20 72 15 187/103 H 98 06/05/20 09:16 73 19 98 06/05/20 09:15 73 15 192/106 H 97 06/05/20 09:11 75 15 99 06/05/20 09:10 76 17 204/105 H 98 06/05/20 09:07 75 18 196/99 H 98 06/05/20 09:06 76 20 99 06/05/20 09:05 75 17 196/99 H 97 06/05/20 09:03 72 21 188/153 H 95 06/05/20 09:01 201/95 H 95 06/05/20 09:00 98 06/05/20 08:55 72 20 168/78 H 98 06/05/20 08:51 71 17 95 06/05/20 08:50 68 14 157/73 H 93 06/05/20 08:46 69 14 93 06/05/20 08:45 66 12 159/71 H 96 06/05/20 08:42 67 16 157/71 H 95 06/05/20 08:41 66 13 93 06/05/20 08:40 67 12 157/71 H 94 06/05/20 08:36 67 19 94 06/05/20 08:35 68 14 149/68 H 93 06/05/20 08:30 69 15 139/63 91 06/05/20 08:25 71 15 167/73 H 93 06/05/20 08:20 76 13 174/76 H 93 06/05/20 08:15 78 22 183/80 H 92 06/05/20 08:11 76 16 89 L 0605/20 08:10 76 13 197/79 H 90 06/05/20 08:06 91 06/05/20 08:05 196/86 H 93 06/05/20 08:01 93 06/05/20 08:00 191/92 H 93 06/05/20 07:56 93 06/05/20 07:55 195/85 H 93 06/05/20 07:51 92 06/05/20 07:50 193/101 H 92 06/05/20 07:46 92 06/05/20 07:45 198/93 H 93 06/05/20 07:41 92 06/05/20 07:40 85 17 193/119 H 92 08/01/19 07:35 85 19 201/134 H 93 08/01/19 07:32 89 20 218/105 H 95 08/01/19 07:30 91 H 18 95 08/01/19 07:25 98 H 18 96 08/01/19 07:24 100 H 18 244/127 H 97 08/01/19 07:20 97 08/01/19 07:15 120 H 33 H 88 L 08/01/19 07:13 105 H 33 H 89 L 08/01/19 07:11 97 H 19 204/156 H 98 08/01/19 07:05 36.7 C 84 32 H 204/156 H 85 L Laboratory Results 08/01/19 07:26 08/01/19 07:26 BNP elevated at 8214 Diagnostic Findings Chest x-ray independently reviewed. Mild cardiomegaly is noted. Pulmonary vascular congestion identified. Increased bilateral parenchymal markings, possibly infectious, inflammatory, or related to atypical fluid overload Coding Level of Care Code 83207 Inpt Consult Level 4 Diagnoses Acute and chronic respiratory failure J96.20 Flash pulmonary edema J81.0 Hypertensive urgency I16.0 CKD (chronic kidney disease), stage III N18.3 COPD (chronic obstructive pulmonary disease) J44.9 COPD type: unspecified COPD (1) COPD (chronic obstructive pulmonary disease) COPD type: unspecified COPD Qualified Code(s): J44.9 - Chronic obstructive pulmonary disease, unspecified
[2019-08-01] MEDS: HYDROCODONE/ACETAMOPHEN 5/325MG TAB PO PRN (13:08)
[2019-08-01] MEDS: CLOPIDOGREL BISULFATE 75 MG TAB PO SCH (13:18)
[2019-08-01] MEDS: FOLIC ACID 1 MG TAB PO SCH (13:18)
[2019-08-01] MEDS: UMECLIDINIUM BROMIDE 62.5MCG/BLISTER 7 PUFFS/INHALER INH SCH (13:18)
[2019-08-01] MEDS: ASPIRIN 81 MG ECTAB PO SCH (13:18)
[2019-08-01] MEDS: METOPROLOL SUCC 25MG EXT REL TAB PO SCH (13:19)
[2019-08-01] MEDS: GABAPENTIN 300 MG CAP PO SCH ×2 (13:19→21:21)
[2019-08-01] MEDS: SERTRALINE HCL 50 MG TABLET PO SCH (13:20)
[2019-08-01] MEDS: POTASSIUM CHLORIDE 20 MEQ TABCR PO SCH (13:20)
[2019-08-01] MEDS ORDERED: ACETAMINOPHEN 325 MG TAB PO PRN (14:34)
--- NOTE | 2019-08-01 14:36 | Cardiology Consultation ---
Date of Consultation August 01, 2019 Assessment & Plan (1) Acute and chronic respiratory failure: (2) Hypertensive urgency: (3) Flash pulmonary edema: (4) Hypokalemia: I had a long discussion with the patient regarding importance of compliance with current medical therapies. She voiced understanding. Expressed desire to avoid further invasive medical procedures. Considering palliative care/hospice at this time. Blood pressure has normalized with improvement of respiratory status and IV nitro infusion. Her intravenous nitroglycerin infusion can be discontinued at this time. Recommend addition of oral diuretic therapy, furosemide 20 mg daily. She may require reduction in frequency pending renal response to daily diuretic therapy. No further cardiac testing or intervention at this time. History of Present Illness Reason for Consultation: CHF Requesting Physician: Dr. Wolff Attending Physician: Dano Wolff MD History of Present Illness 74-year-old female presented to the emergency department with acute respiratory distress. Patient notes missing her medications 07/31/2019. Patient treated in the ER with sublingual nitroglycerin, IV nitro drip, and 40 mg of IV Lasix. Transiently bridged with BiPAP. Patient diuresed approximately 750 cc and her respiratory status has improved. Resting comfortably with nasal cannula. She is awake and alert. Denies dyspnea at rest currently. Blood pressure has trended down to normal range. Cardiac enzymes initially undetectable. Patient voices desire to avoid invasive procedures. Considering palliative care/hospice. During recent hospitalization in June, I treated patient for acute heart failure and nonsustained ventricular tachycardia. Possibility of cardiac catheterization was entertained, however, patient declined any further invasive studies/procedures. Telemetry during that hospitalization demonstrated torsade the pointes. ECGs demonstrated prolonged QT interval. Her QT interval has returned to normal range per repeat ECG this hospitalization. Most recent echocardiogram demonstrates preserved LV systolic function. Carries a history of severe underlying COPD and oxygen dependence. Allergies Allergy/AdvReac Type Severity Reaction Status Date / Time ciprofloxacin Allergy Mild ITCHY Verified 08/01/19 07:48 azithromycin Allergy Unknown Unknown Verified 08/01/19 07:48 Nitrate Analogues Allergy Unknown UNSURE; Verified 08/01/19 07:48 BUT PATIENT TAKES NITROSTAT PER ADMIT MED REC. nitrofurantoin Allergy Unknown UNSURE Verified 08/01/19 07:48 pneumococcal vaccine Allergy Unknown unk Verified 08/01/19 07:48 Influenza Virus Vaccines AdvReac Mild HIVES ON Verified 08/01/19 07:48 THE SITE Home Medications Home Medications Medication Instructions Recorded Confirmed Type albuterol sulfate [Ventolin HFA] 2 puff INHALATION QID PRN 12/28/17 08/01/19 History aspirin 81 mg PO QAM 12/28/17 08/01/19 History clopidogrel 75 mg PO QAM 12/28/17 08/01/19 History fluticasone propionate 2 spray INTRANASAL DAILY PRN 12/28/17 08/01/19 History folic acid 1 mg PO DAILY 12/28/17 08/01/19 History metoprolol succinate 12.5 mg PO QAM 12/28/17 08/01/19 History nitroglycerin 0.4 mg SUBLINGUAL DIRECTED PRN 12/28/17 08/01/19 History hydrocodone-acetaminophen 1 tab PO Q8H PRN 5 Days #15 tab 03/24/19 08/01/19 Rx gabapentin 300 mg PO TID 05/09/19 08/01/19 History sennosides-docusate sodium 1 tabcap PO DAILY PRN #30 tab 05/13/19 08/01/19 Rx [Senokot-S] Incruse Ellipta 1 inh INHALATION DAILY 06/18/19 08/01/19 History potassium chloride 20 meq PO QAM 06/18/19 08/01/19 History mupirocin 1 applic TOPICAL UD 08/01/19 08/01/19 History sertraline 25 mg PO DAILY 08/01/19 08/01/19 History Patient History Medical History Avascular necrosis (Chronic) CAD (coronary artery disease) (Chronic) Cardiac cath 2010-nonobstructive disease Carotid stenosis (Chronic) Chronic hip pain Chronic respiratory failure with hypoxia (Chronic) CKD (chronic kidney disease), stage III COPD (chronic obstructive pulmonary disease) (Chronic) CVA (cerebral vascular accident) (Chronic) Depression (Chronic) Diastolic CHF (Chronic) Dyslipidemia (Chronic) Hip pain, right (Chronic) HTN (hypertension) (Acute) Hypertension (Chronic) DAYNA (iron deficiency anemia) (Chronic) IPMN (intraductal papillary mucinous neoplasm) (Chronic) Lumbar back pain (Chronic) PAD (peripheral artery disease) (Chronic) S/P stenting of the right distal common and right external iliac arteries Pancreatic duct stricture (Chronic) S/P stent Recurrent pancreatitis (Chronic) Sleep apnea (Chronic) Tobacco use disorder (Chronic) Surgical History H/O ventral hernia repair (Chronic) History of appendectomy (Chronic) History of cholecystectomy (Chronic) History of hysterectomy (Chronic) Family History Mother Stroke Father Stroke Social History Preferred Language: Gibraltarian Communication Ability: Effective Visual Impairment: No Limitations Finish Painter Required: No Beliefs That Will Affect Care: None marital status: / Current Living Situation: Alone Current Living Situation Comment: Caregivers 9a-5p daily x 40hrs/wk Other Information That Helps Us Care for You: No Feels Safe at Home: Yes Safety Concerns: Feels Safe At This Time Smoking Status: Current every day smoker Tobacco Type: cigarettes ; Cigarettes Per Day: 20 ; Do You Dip or Chew Tobacco: No ; Second Hand Exposure: No ; Tobacco Cessation Education Requested by Patient: No Hx Alcohol Use: Yes Alcohol type: wine Hx Substance Use: Yes substance use type: painkillers Review of Systems Review of Systems: All systems reviewed & are unremarkable except as noted in HPI & below Physical Exam Constitutional: well developed, + ill appearing and + thin; no acute distress Respiratory: no respiratory distress, no labored breathing and no retractions Auscultation: + diminished lung sounds and + crackles (B/L, R>L); no rhonchi and no wheezes Cardiovascular: Rate/Rhythm: regular rate and regular rhythm Heart Sounds: normal S1 and normal S2; no murmur Vessels: + JVD; no carotid bruit Extremities: no edema Results & Data ([facility]) Vital Signs (Past 12 Hours) Vital Signs Temp Pulse Pulse Resp BP BP Pulse Ox 08/01/19 11:57 68 15 132/72 94 08/01/19 11:49 68 14 128/69 08/01/19 11:27 75 15 123/70 89 L 08/01/19 11:18 36.7 C 75 18 123/70 93 08/01/19 11:00 67 15 169/67 H 94 08/01/19 10:56 66 12 98 06/05/20 10:55 67 16 169/82 H 99 06/05/20 10:51 66 13 100 06/05/20 10:50 68 16 172/88 H 100 06/05/20 10:46 65 15 97 06/05/20 10:45 66 12 177/74 H 99 06/05/20 10:40 68 18 171/70 H 94 06/05/20 10:36 66 18 100 06/05/20 10:35 65 25 H 174/77 H 98 06/05/20 10:30 66 24 178/74 H 98 06/05/20 10:26 66 14 99 06/05/20 10:25 69 17 182/73 H 98 06/05/20 10:21 69 18 99 06/05/20 10:20 69 15 176/77 H 99 06/05/20 10:15 68 14 186/87 H 98 06/05/20 10:10 69 16 167/123 H 98 06/05/20 10:06 69 13 100 06/05/20 10:05 67 15 182/95 H 98 06/05/20 10:01 68 19 99 06/05/20 10:00 67 15 174/89 H 97 06/05/20 09:55 70 19 187/74 H 97 06/05/20 09:50 68 18 182/116 H 98 06/05/20 09:46 71 14 99 06/05/20 09:45 70 17 193/86 H 99 06/05/20 09:40 71 15 192/78 H 98 06/05/20 09:36 71 19 96 06/05/20 09:35 72 14 192/91 H 97 06/05/20 09:31 72 16 99 06/05/20 09:30 73 17 188/104 H 98 06/05/20 09:26 74 17 99 06/05/20 09:25 76 18 200/91 H 98 06/05/20 09:21 73 18 97 06/05/20 09:20 72 15 187/103 H 98 06/05/20 09:16 73 19 98 06/05/20 09:15 73 15 192/106 H 97 06/05/20 09:11 75 15 99 06/05/20 09:10 76 17 204/105 H 98 06/05/20 09:07 75 18 196/99 H 98 06/05/20 09:06 76 20 99 06/05/20 09:05 75 17 196/99 H 97 06/05/20 09:03 72 21 188/153 H 95 06/05/20 09:01 201/95 H 95 06/05/20 09:00 98 06/05/20 08:55 72 20 168/78 H 98 06/05/20 08:51 71 17 95 06/05/20 08:50 68 14 157/73 H 93 06/05/20 08:46 69 14 93 06/05/20 08:45 66 12 159/71 H 96 06/05/20 08:42 67 16 157/71 H 95 06/05/20 08:41 66 13 93 06/05/20 08:40 67 12 157/71 H 94 06/05/20 08:36 67 19 94 06/05/20 08:35 68 14 149/68 H 93 06/05/20 08:30 69 15 139/63 91 06/05/20 08:25 71 15 167/73 H 93 06/05/20 08:20 76 13 174/76 H 93 06/05/20 08:15 78 22 183/80 H 92 06/05/20 08:11 76 16 89 L 06/05/20 08:10 76 13 197/79 H 90 06/05/20 08:06 91 06/05/20 08:05 196/86 H 93 06/05/20 08:01 93 06/05/20 08:00 191/92 H 93 06/05/20 07:56 93 06/05/20 07:55 195/85 H 93 06/05/20 07:51 92 06/05/20 07:50 193/101 H 92 06/05/20 07:46 92 06/05/20 07:45 198/93 H 93 06/05/20 07:41 92 06/05/20 07:40 85 17 193/119 H 92 06/05/20 07:35 85 19 201/134 H 93 06/05/20 07:32 89 20 218/105 H 95 06/05/20 07:30 91 H 18 95 06/05/20 07:25 98 H 18 96 06/05/20 07:24 100 H 18 244/127 H 97 06/05/20 07:20 97 06 07:15 120 H 33 H 88 L 08/01/19 07:13 105 H 33 H 89 L 08/01/19 07:11 97 H 19 204/156 H 98 08/01/19 07:05 36.7 C 84 32 H 204/156 H 85 L (1) Acute and chronic respiratory failure Respiratory failure complication: hypoxia and hypercapnia Qualified Code(s): J96.21 - Acute and chronic respiratory failure with hypoxia; J96.22 - Acute and chronic respiratory failure with hypercapnia
--- NOTE | 2019-08-01 16:38 | Hospitalist Progress Note ---
Date of Service August 01, 2019 Assessment & Plan Admission and Anticipated Discharge Date Admission Date: August 01, 2019 Subjective Patient seen and examined in the emergency room, patient arrived by EMS due to difficulty breathing. Concern for flash pulmonary edema and therefore called for admission. Currently patient is in ED room with BiPAP on and nitro drip, Patient also received IV Lasix. She is currently feeling better and able to speak. Patient's daughter also arrived and is currently at the bedside. Painter Set/ICU notified due to nitro drip. Patient was seen by palliative medicine during her last admission, at that time plan was to go home and transition to hospice if she gets worse. Discussed CODE STATUS, patient states in the presence of her daughter and me that she would not want to be intubated, but she also does not want to feel anxious and sick, she did say that she would want to have medication on in case she is feeling worse and she is still conscious. She does understand that she would most likely then , in patient's own words, "fell asleep and not wake up". Garrick Wolff MD Results & Data Results & Data ([facility]) Vital Signs (Past 12 Hours) Vital Signs Temp Pulse Pulse Resp BP BP Pulse Ox 08/01/19 15:35 57 L 10 L 97/53 L 93 08/01/19 15:32 36.5 C 08/01/19 15:19 58 L 19 78/47 L 91 08/01/19 14:35 59 L 12 97/54 L 08/01/19 13:27 68 14 113/51 L 08/01/19 12:57 78 16 121/71 08/01/19 12:27 69 12 114/61 93 08/01/19 12:00 60 08/01/19 11:57 68 15 132/72 94 08/01/19 11:49 68 14 128/69 08/01/19 11:27 75 15 123/70 89 L 08/01/19 11:18 36.7 C 75 18 123/70 93 08/01/19 11:00 67 15 169/67 H 94 08/01/19 10:56 66 12 98 08/01/19 10:55 67 16 169/82 H 99 08/01/19 10:51 66 13 100 08/01/19 10:50 68 16 172/88 H 100 06/05/20 10:46 65 15 97 06/05/20 10:45 66 12 177/74 H 99 06/05/20 10:40 68 18 171/70 H 94 06/05/20 10:36 66 18 100 06/05/20 10:35 65 25 H 174/77 H 98 /05/20 10:30 66 24 178/74 H 98 06/05/20 10:26 66 14 99 06/05/20 10:25 69 17 182/73 H 98 06/05/20 10:21 69 18 99 06/05/20 10:20 69 15 176/77 H 99 06/05/20 10:15 68 14 186/87 H 98 06/05/20 10:10 69 16 167/123 H 98 06/05/20 10:06 69 13 100 06/05/20 10:05 67 15 182/95 H 98 /05/20 10:01 68 19 99 06/05/20 10:00 67 15 174/89 H 97 /05/20 09:55 70 19 187/74 H 97 /05/20 09:50 68 18 182/116 H 98 /05/20 09:46 71 14 99 06/05/20 09:45 70 17 193/86 H 99 /05/20 09:40 71 15 192/78 H 98 /05/20 09:36 71 19 96 /05/20 09:35 72 14 192/91 H 97 /05/20 09:31 72 16 99 06/05/20 09:30 73 17 188/104 H 98 /05/20 09:26 74 17 99 06/05/20 09:25 76 18 200/91 H 98 06/05/20 09:21 73 18 97 06/05/20 09:20 72 15 187/103 H 98 06/05/20 09:16 73 19 98 06/05/20 09:15 73 15 192/106 H 97 06/05/20 09:11 75 15 99 06/05/20 09:10 76 17 204/105 H 98 /0520 09:07 75 18 196/99 H 98 /0520 09:06 76 20 99 06/05/20 09:05 75 17 196/99 H 97 06/05/20 09:03 72 21 188/153 H 95 06/05/20 09:01 201/95 H 95 05 09:00 98 06/05/20 08:55 72 20 168/78 H 98 0520 08:51 71 17 95 0520 08:50 68 14 157/73 H 93 0520 08:46 69 14 93 0520 08:45 66 12 159/71 H 96 0520 08:42 67 16 157/71 H 95 060520 08:41 66 13 93 05 08:40 67 12 157/71 H 94 0520 08:36 67 19 94 060520 08:35 68 14 149/68 H 93 0520 08:30 69 15 139/63 91 05 08:25 71 15 167/73 H 93 05 08:20 76 13 174/76 H 93 08/01/19 08:15 78 22 183/80 H 92 08/01/19 08:11 76 16 89 L 08/01/19 08:10 76 13 197/79 H 90 08/01/19 08:06 91 08/01/19 08:05 196/86 H 93 05 08:01 93 08/01/19 08:00 191/92 H 93 08/01/19 07:56 93 08/01/19 07:55 195/85 H 93 08/01/19 07:51 92 08/01/19 07:50 193/101 H 92 0520 07:46 92 05 07:45 198/93 H 93 08/01/19 07:41 92 05 07:40 85 17 193/119 H 92 08/01/19 07:35 85 19 201/134 H 93 0520 07:32 89 20 218/105 H 95 0520 07:30 91 H 18 95 0520 07:25 98 H 18 96 20 07:24 100 H 18 244/127 H 97 0520 07:20 97 20 07:15 120 H 33 H 88 L 0605/20 07:13 105 H 33 H 89 L 05 07:11 97 H 19 204/156 H 98 08/01/19 07:05 36.7 C 84 32 H 204/156 H 85 L
[2019-08-01] MEDS ORDERED: ALBUMIN 25% 50 ML IV ONE (20:49)
[2019-08-01 21:39] LABS: Calcium 8.2 mg/dl (8.5-10.1); Creatinine Clr Calc Pharmacy 29.8 ml/min; Est GFR (African American) 44.9; Est GFR (Non-African American) 38.7; Potassium 4.1 mmol/L (3.5-5.1)
[2019-08-02] MEDS: HYDROCODONE/ACETAMOPHEN 5/325MG TAB PO PRN ×3 (00:52→20:51)
[2019-08-02 04:59] LABS: BUN Creatinine Ratio 19.9 (10-20); Calcium 8.1 mg/dl (8.5-10.1); Creatinine Clr Calc Pharmacy 28.3 ml/min; Est GFR (African American) 44.9; Est GFR (Non-African American) 38.7; Magnesium 2.5 mg/dl (1.8-2.4); Potassium 4.2 mmol/L (3.5-5.1)
[2019-08-02 05:21] LABS: Hematocrit (blood only) 28.7 % (37-47); Hemoglobin 8.8 g/dL (12.0-16.0); Mean Corpuscular Hemoglobin 30.2 pg (25-34); Mean Corpuscular Hgb Conc 30.7 g/dL (32-36); Mean Corpuscular Volume 98.6 fL (80-100); Mean Platelet Volume 8.7 fL (7.4-10.4); Platelet Count 171 K/uL (130-400); RDW Coefficient of Variation 15.9 % (11.5-14.5); RDW Standard Deviation 56.4 fL (36.4-46.3); Red Blood Count 2.91 M/uL (4.2-5.4); White Blood Count 4.41 K/uL (4.8-10.8)
--- NOTE | 2019-08-02 06:57 | Electrocardiogram Report ---
Test Reason : Blood Pressure : / mmHG Vent. Rate : 120 BPM Atrial Rate : 120 BPM P-R Int : 156 ms QRS Dur : 078 ms QT Int : 324 ms P-R-T Axes : 081 078 047 degrees QTc Int : 457 ms Poor data quality, interpretation may be adversely affected Sinus tachycardia Possible Left atrial enlargement Left ventricular hypertrophy Abnormal ECG When compared with ECG of 08-JUL-2019 15:22, Premature ventricular complexes are no longer Present Vent. rate has increased BY 57 BPM T wave inversion no longer evident in Anterior leads Confirmed by Kaden López ([id number]) on 08/02/2019 6:56:53 AM Referred By: ED Confirmed By:Kaden López
[2019-08-02] MEDS: SERTRALINE HCL 50 MG TABLET PO SCH (07:36)
[2019-08-02] MEDS: GABAPENTIN 300 MG CAP PO SCH ×3 (07:36→20:49)
[2019-08-02] MEDS: POTASSIUM CHLORIDE 20 MEQ TABCR PO SCH (07:37)
[2019-08-02] MEDS: METOPROLOL SUCC 25MG EXT REL TAB PO SCH (07:37)
[2019-08-02] MEDS: FOLIC ACID 1 MG TAB PO SCH (07:37)
[2019-08-02] MEDS: CLOPIDOGREL BISULFATE 75 MG TAB PO SCH (07:37)
[2019-08-02] MEDS: UMECLIDINIUM BROMIDE 62.5MCG/BLISTER 7 PUFFS/INHALER INH SCH (07:37)
[2019-08-02] MEDS: ASPIRIN 81 MG ECTAB PO SCH (07:37)
--- NOTE | 2019-08-02 08:10 | Pulmonology Progress Note ---
Date of Service August 02, 2019 Assessment & Plan (1) Hypertensive urgency: Impression: 74-year-old female with chronic hypoxemic respiratory failure admitted now with hypertensive urgency and pulmonary edema. She is markedly improved with control of her blood pressure, 1 dose of diuretics, and a brief trial of noninvasive positive pressure ventilation. She appears to be back to her baseline at 5 L/min. She again is not interested in pursuing aggressive interventions at this point time and has declined a blood gas during this hospitalization. Recommendations: 1. Acute on chronic hypoxemic and hypercarbic respiratory failure. Review of prior blood gases in her venous blood gas on this admission demonstrate likely chronic hypercarbic respiratory failure and the patient may benefit from nocturnal positive airway pressure. The patient did well with BiPAP 10/5 last night and recommended that she be set up with home AVAPS/trilogy with outpatient follow-up in the pulmonary clinic. Will need to be coordinated with case managment. 2. Hypertensive urgency: Per primary and cardiology 3. Pulmonary hypertension: Suspect group 2 and group 3. No indication for vasodilators or additional invasive diagnostic testing. 4. Confirmed DNR status. Out of bed as tolerated. PT and OT 5. Likely severe obstructive lung disease: PFTs are not available. Transition from Incruse to Anoro 1 puff daily. No indication for steroids or antibiotics currently. Needs to get out of bed and ambulate. Unclear if needs Pt and OT evaluations. Appears at baseline. disop per primary service. (2) Acute and chronic respiratory failure: Respiratory failure complication: hypoxia and hypercapnia Qualified Code(s): J96.21 - Acute and chronic respiratory failure with hypoxia; J96.22 - Acute and chronic respiratory failure with hypercapnia (3) COPD (chronic obstructive pulmonary disease): COPD type: unspecified COPD Qualified Code(s): J44.9 - Chronic obstructive pulmonary disease, unspecified (4) CHF (congestive heart failure): Heart failure type: biventricular Qualified Code(s): I50.82 - Biventricular heart failure Admission and Anticipated Discharge Date Admission Date: August 01, 2019 Subjective Patient seen and examined. She did well overnight. She use noninvasive positive pressure ventilation and tolerated it well. She thinks it was helpful in improving her breathing. She is awake and eating breakfast this morning. Minimal cough. No significant sputum production. Review of Systems Review of Systems: All systems reviewed & are unremarkable except as noted in HPI & below Physical Exam Constitutional: + thin and + frail appearing; not in distress Neck: trachea midline, no thyromegaly Respiratory: normal respiratory effort Diminished breath sounds bilaterally. No wheezing Cardiovascular: RRR, no murmur, no edema Gastrointestinal (Abdomen): normal bowel sounds, soft, nontender, no hepatosplenomegaly Musculoskeletal: Extremities: extremities normal to inspection Skin: no rashes, warm and dry Neurologic: Nonfocal exam Lymphatic: no cervical lymphadenopathy Results & Data Results & Data ([facility]) Vital Signs (Past 12 Hours) Vital Signs Temp Pulse Pulse Resp BP BP Pulse Ox 08/02/19 07:40 36.6 C 75 17 117/73 92 08/02/19 04:36 36.8 C 60 10 L 104/57 L 94 08/02/19 03:35 36.5 C 58 L 22 63/45 L 92 08/02/19 00:36 59 L 10 L 108/62 08/02/19 00:30 78 16 98 08/02/19 00:00 61 08/01/19 23:35 37.1 C 54 L 18 94/51 L 98 08/01/19 23:06 36.4 C L 54 L 16 99/56 L 98 08/01/19 23:02 55 L 14 99/56 L 98 08/01/19 22:36 58 L 14 120/60 08/01/19 22:00 61 18 94 08/01/19 21:36 61 8 L 113/51 L 08/01/19 21:23 60 19 118/61 08/01/19 20:38 55 L 13 64/36 L 08/01/19 20:36 36.8 C 56 L 10 L 61/37 L Laboratory Results 08/02/19 04:29 08/02/19 04:29 PG Care Time/CCT Total # of Minutes Spent Total Time Spent with Patient: Total time spent is greater than 50% in coordination of care (as documented) at patient's floor/unit and/or counseling patient: Coding Level of Care Code 10018 Subseq Hosp Care Lvl 3 Diagnoses Hypertensive urgency I16.0 Acute and chronic respiratory failure J96.21; J96.22 Respiratory failure complication: hypoxia and hypercapnia COPD (chronic obstructive pulmonary disease) J44.9 COPD type: unspecified COPD CHF (congestive heart failure) I50.82 Heart failure type: biventricular
[2019-08-02] MEDS: UMECLIDINIUM/VILANTEROL 62.5/25MCG 7 PUFFS/INHALER INH SCH (10:22)
[2019-08-02] MEDS: FUROSEMIDE 20 MG TAB PO SCH (10:22)
[2019-08-02 11:43] LABS: Hematocrit (blood only) 28.3 % (37-47); Hemoglobin 8.8 g/dL (12.0-16.0); Mean Corpuscular Hemoglobin 30.6 pg (25-34); Mean Corpuscular Hgb Conc 31.1 g/dL (32-36); Mean Corpuscular Volume 98.3 fL (80-100); Mean Platelet Volume 8.9 fL (7.4-10.4); Platelet Count 176 K/uL (130-400); RDW Coefficient of Variation 15.9 % (11.5-14.5); RDW Standard Deviation 56.8 fL (36.4-46.3); Red Blood Count 2.88 M/uL (4.2-5.4); White Blood Count 3.95 K/uL (4.8-10.8)
--- NOTE | 2019-08-02 13:19 | XRay Report ---
SINGLE VIEW CHEST CLINICAL HISTORY: Follow-up CHF. FINDINGS: An AP, portable, upright chest radiograph is compared to study dated 08/01/2019. The examinat ion is degraded by portable technique and patient rotation. The heart is enlarged noting atherosclero tic calcification. There is pulmonary vascular congestion and mild interstitial edema. Calcified medi astinal and hilar lymph nodes are similar to previous. There are small pleural effusions with bibasil ar consolidation. No pneumothorax is seen. The skeletal structures are osteopenic. There are healed l eft-sided rib fractures. IMPRESSION: 1. Cardiomegaly with evidence of congestive failure and mild interstitial edema. This has modestly im proved from yesterday. 2. Small pleural effusions with bibasilar consolidation. ACT 112: Negative or not required by law. Electronically signed by: Flaquito Arana M.D. 08/02/2019 1:18 PM
--- NOTE | 2019-08-02 20:08 | Hospitalist Progress Note ---
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 In ER pt was found to be in respiratory distress, hypertensive, hypoxic Initial vitals pt afebrile, P: 84, R: 32, BP: 204/156, 85% on RA. In ER started on BiPAP, given sublingual nitro, nitro drip was started, and given 40 mg Lasix IV. At baseline uses 4-5L of O2 d/t COPD Patient with decreased respiratory distress on BiPAP. Chest x-ray consistent with CHF. No leukocytosis, Negative troponin - on admission ABG was ordered however pt refused Covid 19 PCR- negative Admitted to ICU initially, now downgraded to PCU, continue to monitor on telemetry Forming Roll Operator/pulmonary consulted - Review of prior blood gases in her venous blood gas on this admission demonstrate likely chronic hypercarbic respiratory failure and the patient may benefit from nocturnal positive airway pressure. Will pursue a trial of BiPAP nightly at 10/5 to see if she can tolerate it. Patient used BiPAP overnight, and tolerated well. Can consider trying to get the patient set up with an outpatient AVAPS/ trilogy unit, outpatient follow-up in the pulmonary clinic Pulmonary hypertension: Suspect group 2 and group 3. No indication for vasodilators or additional invasive diagnostic testing. Likely severe obstructive lung disease: PFTs are not available. She is not overtly bronchospastic currently. We will continue as needed inhalers. Transition from Incruse to Anoro 1 puff daily. No indication for steroids or antibiotics from pulmonary standpoint. Hx of nonobstructive CAD, on beta-rasta, aspirin Plavix, statin Cardiology consulted - had a long discussion with the patient regarding importance of compliance with current medical therapies. Pt expressed desire to avoid further invasive medical procedures. Considering palliative care/hospice at this time. Blood pressure has normalized with improvement of respiratory status on IV nitro infusion. Her intravenous nitroglycerin infusion can be discontinued at this time. Recommend addition of oral diuretic therapy, furosemide 20 mg daily. She may require reduction in frequency pending renal response to daily diuretic therapy. Pt with history hospitalization in 05/2019 for flash pulmonary edema, acute decompensated heart failure, acute respiratory failure. During that admission ca rdiac cath was recommended, however patient declined and is not interested in any invasive procedures. Palliative care was consulted. (6) Hypertension: Hypertensive in ER, improved on nitro drip - continue home metoprolol. Blood pressure was high in the ED, she was started on nitro drip in the ER which was tapered off. We will closely monitor the blood pressure. (7) Hypokalemia: K: 3.4 on admission replace and monitor (8) CKD (chronic kidney disease), stage III: Cr: 1.34. Recent baseline Cr ~1.2 (9) Depression: - previously on citalopram. Due to prolonged QTc, and episode of VT, Celexa discontinued during last admission - cont. to closely monitor (10) Anemia: -Iron deficiency anemia, Current Hgb ~9 Cont. to monitor H&H (11) Tobacco use disorder: - pt states she re-started to smoke - offer nicotine patch Dispo: Initially admitted to ICU, now at PCU Code Status: DNR/DNI as per discussion with pt and pt's daughter Annmarie Follows with Dr Quintanilla for routine care Admission and Anticipated Discharge Date Admission Date: August 01, 2019 Subjective Patient was downgraded from ICU level yesterday, several hours after her admission. She used noninvasive positive pressure ventilation overnight and tolerated it well. She thinks it was helpful in improving her breathing. She is awake and currently on the phone with her family. She is on 5 L of nasal cannula. She is in no respiratory distress. Denies fevers, chills, chest pain. Denies any abdominal pain, nausea or vomiting. Review of Systems Review of Systems: All systems reviewed & are unremarkable except as noted in HPI & below Constitutional: no fever and no chills Respiratory: + cough (minimal); no dyspnea Cardiovascular: no chest pain and no palpitations Gastrointestinal: no abdominal pain, no nausea and no vomiting Physical Exam Physical Exam: GENERAL: elderly frail female, not in acute distress, using 5L of O2 via NC HEENT: NC/AT, no icterus. EOMI, PERRL NECK: No JVD, no neck masses CARDIOVASCULAR: S1, S2 heard, regular rate and rhythm, no murmur, no gallop. RESPIRATORY SYSTEM: No accessory muscle use. Using 5L O2 via NC, somewhat diminished lung sounds, + diffuse crackles (improved) ABDOMEN: Soft, bowel sounds present, nontender. No distention. CENTRAL NERVOUS SYSTEM: Alert and oriented x3, no facial symmetry, speech fluent, moves all extremities spontaneously and without difficulty EXTREMITIES: No lower extremity edema, moves all 4 extremities spontaneously SKIN: warm, dry, no rashes or lesions Results & Data Results & Data ([facility]) Vital Signs (Past 12 Hours) Vital Signs Temp Pulse Pulse Resp BP Pulse Ox 08/02/19 19:38 36.8 C 83 18 114/64 93 08/02/19 15:40 59 L 08/02/19 15:25 36.8 C 62 18 93/52 L 90 08/02/19 12:44 36.5 C 60 16 148/66 H 95 08/02/19 10:24 56 L 08/02/19 09:50 37.3 C 56 L 18 113/52 L 95 08/02/19 09:06 63 Laboratory Results 08/02/19 08/02/19 08/02/19 Range/Units 11:32 04:29 04:29 WBC 3.95 L 4.41 L (4.8-10.8) K/uL RBC 2.88 L 2.91 L (4.2-5.4) M/uL Hgb 8.8 L 8.8 L D (12.0-16.0) g/dL Hct 28.3 L 28.7 L (37-47) % MCV 98.3 98.6 (80-100) fL MCH 30.6 30.2 (25-34) pg MCHC 31.1 L 30.7 L (32-36) g/dL RDW Std Deviation 56.8 H 56.4 H (36.4-46.3) fL RDW Coeff of Sriram 15.9 H 15.9 H (11.5-14.5) % Plt Count 176 171 (130-400) K/uL MPV 8.9 8.7 (7.4-10.4) fL Sodium 142 (136-145) mmol/L Potassium 4.2 (3.5-5.1) mmol/L Chloride 108 H (98-107) mmol/L Carbon Dioxide 32 (21-32) mmol/L Anion Gap 2.0 L (3-11) BUN 27 H (7-18) mg/dl Creatinine 1.33 H (0.6-1.2) mg/dl Est Cr Clr Drug Dosing 28.3 ml/min Est GFR ( Amer) 44.9 Est GFR (Non-Af Amer) 38.7 BUN/Creatinine Ratio 19.9 (10-20) Glucose 88 (70-99) mg/dl Lactate (0.4-2.0) mmol/L Calcium 8.1 L (8.5-10.1) mg/dl Phosphorus 4.0 (2.5-4.9) mg/dl Magnesium 2.5 H (1.8-2.4) mg/dl 08/01/19/07/15 Range/Units 21:10 21:10 WBC (4.8-10.8) K/uL RBC (4.2-5.4) M/uL Hgb (12.0-16.0) g/dL Hct (37-47) % MCV (80-100) fL MCH (25-34) pg MCHC (32-36) g/dL RDW Std Deviation (36.4-46.3) fL RDW Coeff of Sriram (11.5-14.5) % Plt Count (130-400) K/uL MPV (7.4-10.4) fL Sodium 141 (136-145) mmol/L Potassium 4.1 D (3.5-5.1) mmol/L Chloride 107 (98-107) mmol/L Carbon Dioxide 33 H (21-32) mmol/L Anion Gap 1.0 L (3-11) BUN 24 H (7-18) mg/dl Creatinine 1.33 H (0.6-1.2) mg/dl Est Cr Clr Drug Dosing 29.8 ml/min Est GFR ( Amer) 44.9 Est GFR (Non-Af Amer) 38.7 BUN/Creatinine Ratio 18.0 (10-20) Glucose 84 (70-99) mg/dl Lactate 0.7 (0.4-2.0) mmol/L Calcium 8.2 L (8.5-10.1) mg/dl Phosphorus (2.5-4.9) mg/dl Magnesium (1.8-2.4) mg/dl Medications Administered Current Inpatient Medications Acetaminophen (Tylenol) 650 mg PO Q4H PRN PRN Reason: Pain or Fever Stop: 08/31/19 14:33 Hydrocodone Bitart/Acetaminophen ([place] 5/325) 1 tab PO Q8H PRN PRN Reason: Pain Stop: 08/15/19 12:53 Last Admin: 08/02/19 07:40 Dose: 1 tab Documented by: Albuterol (Ventolin Hfa) 2 puffs INH QID PRN PRN Reason: Shortness Of Breath Or Wheezin Stop: 08/31/19 12:38 Aspirin (Ecotrin Ectab) 81 mg PO [facility] Stop: 08/31/19 12:44 Last Admin: 08/02/19 07:37 Dose: 81 mg Documented by: Clopidogrel Bisulfate (Plavix) 75 mg PO [facility] Stop: 08/31/19 12:44 Last Admin: 08/02/19 07:37 Dose: 75 mg Documented by: Fluticasone Propionate (Flonase) 2 sprays TAY DAILY PRN PRN Reason: Nasal Congestion Stop: 08/31/19 12:38 Folic Acid (Folvite) 1 mg PO DAILY [facility] Stop: 08/31/19 12:44 Last Admin: 08/02/19 07:37 Dose: 1 mg Documented by: Furosemide (Lasix) 20 mg PO [facility] Stop: 09/01/19 08:59 Last Admin: 08/02/19 10:22 Dose: Not Given Documented by: Gabapentin (Neurontin) 300 mg PO TID [facility] Stop: 08/31/19 13:59 Last Admin: 08/02/19 14:01 Dose: 300 mg Documented by: Metoprolol Succinate (Toprol Xl) 12.5 mg PO [facility] Stop: 08/31/19 12:44 Last Admin: 08/02/19 07:37 Dose: 12.5 mg Documented by: Nitroglycerin (Nitrostat) 0.4 mg SL PRN PRN PRN Reason: Chest Pain Stop: 08/31/19 12:38 Potassium Chloride (Klor-Con M20) 20 meq PO [facility] Stop: 08/31/19 12:44 Last Admin: 08/02/19 07:37 Dose: 20 meq Documented by: Senna/Docusate Sodium (Senokot S) 1 tab PO DAILY PRN PRN Reason: constipation Stop: 08/31/19 12:38 Sertraline HCl (Zoloft) 25 mg PO DAILY [facility] Stop: 08/31/19 12:44 Last Admin: 08/02/19 07:36 Dose: 25 mg Documented by: Umeclidinium/Vilanterol (Anoro Ellipta 62.5/25 Mcg Inh) 1 puffs INH DAILY [facility] Stop: 09/01/19 08:59 Last Admin: 08/02/19 10:22 Dose: Not Given Documented by: (1) Acute and chronic respiratory failure Respiratory failure complication: hypoxia and hypercapnia Qualified Code(s): J96.21 - Acute and chronic respiratory failure with hypoxia; J96.22 - Acute and chronic respiratory failure with hypercapnia (2) Anemia Anemia type: unspecified type Qualified Code(s): D64.9 - Anemia, unspecified (3) COPD (chronic obstructive pulmonary disease) COPD type: unspecified COPD Qualified Code(s): J44.9 - Chronic obstructive pulmonary disease, unspecified
[2019-08-03] MEDS: HYDROCODONE/ACETAMOPHEN 5/325MG TAB PO PRN ×2 (05:13→20:46)
[2019-08-03 07:16] LABS: Hemoglobin 9.5 g/dL (12.0-16.0); Mean Corpuscular Hemoglobin 30.4 pg (25-34); Mean Corpuscular Hgb Conc 30.6 g/dL (32-36); Mean Corpuscular Volume 99.4 fL (80-100); Mean Platelet Volume 9.5 fL (7.4-10.4); Platelet Count 233 K/uL (130-400); RDW Standard Deviation 57.6 fL (36.4-46.3); Red Blood Count 3.12 M/uL (4.2-5.4); White Blood Count 6.23 K/uL (4.8-10.8)
[2019-08-03 07:39] LABS: BUN Creatinine Ratio 20.5 (10-20); Calcium 8.7 mg/dl (8.5-10.1); Est GFR (African American) 45.3; Est GFR (Non-African American) 39.1; Magnesium 2.7 mg/dl (1.8-2.4); Potassium 4.2 mmol/L (3.5-5.1)
--- NOTE | 2019-08-03 09:12 | Hospitalist Progress Note ---
Date of Service August 03, 2019 Assessment & Plan (1) Acute and chronic respiratory failure: Acute on chronic hypoxemic and hypercarbic respiratory failure (2) Acute on chronic diastolic (congestive) heart failure: (3) Hypertensive urgency: (4) Flash pulmonary edema: (5) COPD (chronic obstructive pulmonary disease): Chronic respiratory failure on 5L oxygen at baseline Pt is 74 y/o F with PMH COPD, chronic respiratory on 5 L oxygen, nonobstructive CAD on 2010 cath, CVA, chronic diastolic congestive heart failure, HTN, CKD III, tobacco use, iron deficiency anemia, sleep apnea presented to ER for shortness of breath. In ER pt was found to be in respiratory distress, hypertensive, hypoxic Initial vitals pt afebrile, P: 84, R: 32, BP: 204/156, 85% on RA. In ER started on BiPAP, given sublingual nitro, nitro drip was started, and given 40 mg Lasix IV. Patient with decreased respiratory distress on BiPAP. Chest x-ray consistent with CHF. No leukocytosis, Negative troponin - on admission ABG was ordered however pt refused Covid 19 PCR- negative During last hospitalization, echocardiogram was obtained, on June 18, it showed mild concentric LVH, no regional wall motion abnormalities noted. EF 55 to 60%. Right ventricle normal size and function. Mild MR, moderate TR. Pulmonary artery systolic pressure 49. Diastolic dysfunction grade 2. Pt with history hospitalization in 05/2019 for flash pulmonary edema, acute decompensated heart failure, acute respiratory failure. During that admission cardiac cath was recommended, however patient declined and is not interested in any invasive procedures. Palliative care was consulted. Patient was discharged home, with plan to transition to home hospice if her clinical status declines. She now presents with acute respiratory failure, called EMS herself. Initially admitted to ICU, on BiPAP and IV nitro drip. She was however soon downgraded to PCU level of care. Bicycle Rental Clerk/pulmonary consulted - Review of prior blood gases in her venous blood gas on this admission demonstrate likely chronic hypercarbic respiratory failure and the patient may benefit from nocturnal positive airway pressure. Will pursue a trial of BiPAP nightly at 10/5 to see if she can tolerate it. Patient used BiPAP overnight, and tolerated well. Can consider trying to get the patient set up with an outpatient AVAPS unit, also recommend outpatient follow- up in the pulmonary clinic Pulmonary hypertension: Suspect group 2 and group 3. No indication for vasodilators or additional invasive diagnostic testing. Likely severe obstructive lung disease: PFTs are not available. She is not overtly bronchospastic currently. We will continue as needed inhalers. Transition from Incruse to Anoro 1 puff daily. No indication for steroids or antibiotics from pulmonary standpoint. Hx of nonobstructive CAD, on beta-rasta, aspirin Plavix, statin Cardiology consulted - had a long discussion with the patient regarding importance of compliance with current medical therapies. Pt expressed desire to avoid further invasive medical procedures. Considering palliative care/hospice at this time. Blood pressure has normalized with improvement of respiratory status on IV nitro infusion. Her intravenous nitroglycerin infusion was then discontinued. Recommend addition of oral diuretic therapy, furosemide 20 mg daily. She may require reduction in frequency pending renal response to daily diuretic therapy. (6) Hypertension: Hypertensive in ER, improved on nitro drip - continue home metoprolol. Blood pressure was high in the ED, she was started on nitro drip in the ER which was tapered off. -She also received IV Lasix on admission -we will closely monitor the blood pressure, cardiology consulted, recommend daily Lasix 20 mg, adjust as needed regarding/may require reduction in frequency pending renal response (7) Hypokalemia: K: 3.4 on admission replace and monitor (8) CKD (chronic kidney disease), stage III: Cr: 1.34. Recent baseline Cr ~1.2 (9) Depression: - previously on citalopram. Due to prolonged QTc, and episode of VT, Celexa discontinued during last admission - Currently patient on Zoloft 25 mg daily - cont. to closely monitor (10) Anemia: -Iron deficiency anemia, Current Hgb ~9 Cont. to monitor H&H (11) Tobacco use disorder: - pt states she re-started to smoke - cont. nicotine patch Dispo: Initially admitted to ICU, then soon downgraded to PCU Code Status: DNR/DNI as per discussion with pt and pt's daughter Annmarie Follows with Dr Quintanilla for routine care Admission and Anticipated Discharge Date Admission Date: August 01, 2019 Subjective Contacted by nursing staff, that patient was desatting to 60s this morning, she was not using BiPAP at night. Patient was placed on BiPAP by nursing staff, she then came back up to 90% O2 sats within minutes. Currently she is lying in bed, using 5L of supplemental O2, at her baseline. Says that she feels more tired. Denies any fevers, chills, chest pain, abdominal pain, nausea or vomiting. Per pulmonary medicine, patient would benefit from nocturnal positive airway pressure. Case management aware, in process. Review of Systems Review of Systems: All systems reviewed & are unremarkable except as noted in HPI & below Constitutional: no fever and no chills Respiratory: no cough and no dyspnea Cardiovascular: no chest pain and no palpitations Gastrointestinal: no abdominal pain, no nausea and no vomiting Physical Exam Physical Exam: GENERAL: elderly frail female, not in acute distress, using 5L of O2 via NC HEENT: NC/AT, no icterus. EOMI, PERRL NECK: No JVD, no neck masses CARDIOVASCULAR: S1, S2 heard, regular rate and rhythm, no murmur, no gallop. RESPIRATORY SYSTEM: No accessory muscle use. Using 5L O2 via NC, somewhat diminished lung sounds, + diffuse crackles (improved) +wheezes ABDOMEN: Soft, bowel sounds present, nontender. No distention. CENTRAL NERVOUS SYSTEM: Alert and oriented x3, no facial symmetry, speech fluent, moves all extremities spontaneously and without difficulty EXTREMITIES: No lower extremity edema, moves all 4 extremities spontaneously SKIN: warm, dry, no rashes or lesions Results & Data Results & Data ([facility]) Vital Signs (Past 12 Hours) Vital Signs Temp Pulse Pulse Resp BP Pulse Ox 08/03/19 08:25 59 L 18 100 08/03/19 08:11 36.8 C 83 17 113/64 100 08/03/19 05:02 86 16 90 08/03/19 03:59 36.5 C 79 26 H 148/63 H 90 08/03/19 00:00 64 08/02/19 23:40 36.7 C 66 18 103/59 L 90 08/02/19 22:10 80 18 93 Laboratory Results 08/03/19 08/03/19 08/02/19 Range/Units 06:35 06:35 11:32 WBC 6.23 3.95 L (4.8-10.8) K/uL RBC 3.12 L 2.88 L (4.2-5.4) M/uL Hgb 9.5 L 8.8 L (12.0-16.0) g/dL Hct 31.0 L 28.3 L (37-47) % MCV 99.4 98.3 (80-100) fL MCH 30.4 30.6 (25-34) pg MCHC 30.6 L 31.1 L (32-36) g/dL RDW Std Deviation 57.6 H 56.8 H (36.4-46.3) fL RDW Coeff of Sriram 16.0 H 15.9 H (11.5-14.5) % Plt Count 233 176 (130-400) K/uL MPV 9.5 8.9 (7.4-10.4) fL Sodium 141 (136-145) mmol/L Potassium 4.2 (3.5-5.1) mmol/L Chloride 109 H (98-107) mmol/L Carbon Dioxide 29 (21-32) mmol/L Anion Gap 3.0 (3-11) BUN 27 H (7-18) mg/dl Creatinine 1.32 H (0.6-1.2) mg/dl Est Cr Clr Drug Dosing 30.0 ml/min Est GFR ( Amer) 45.3 Est GFR (Non-Af Amer) 39.1 BUN/Creatinine Ratio 20.5 H (10-20) Glucose 100 H (70-99) mg/dl Calcium 8.7 (8.5-10.1) mg/dl Phosphorus 4.0 (2.5-4.9) mg/dl Magnesium 2.7 H (1.8-2.4) mg/dl Medications Administered Current Inpatient Medications Acetaminophen (Tylenol) 650 mg PO Q4H PRN PRN Reason: Pain or Fever Stop: 08/31/19 14:33 Hydrocodone Bitart/Acetaminophen ([place] 5/325) 1 tab PO Q8H PRN PRN Reason: Pain Stop: 08/15/19 12:53 Last Admin: 08/03/19 05:13 Dose: 1 tab Documented by: Albuterol (Ventolin Hfa) 2 puffs INH QID PRN PRN Reason: Shortness Of Breath Or Wheezin Stop: 08/31/19 12:38 Last Admin: 08/03/19 05:00 Dose: 2 puffs Documented by: Aspirin (Ecotrin Ectab) 81 mg PO QAM [facility] Stop: 08/31/19 12:44 Last Admin: 08/02/19 07:37 Dose: 81 mg Documented by: Clopidogrel Bisulfate (Plavix) 75 mg PO QAM [facility] Stop: 08/31/19 12:44 Last Admin: 08/02/19 07:37 Dose: 75 mg Documented by: Fluticasone Propionate (Flonase) 2 sprays TAY DAILY PRN PRN Reason: Nasal Congestion Stop: 08/31/19 12:38 Folic Acid (Folvite) 1 mg PO DAILY [facility] Stop: 08/31/19 12:44 Last Admin: 08/02/19 07:37 Dose: 1 mg Documented by: Furosemide (Lasix) 20 mg PO [facility] Stop: 09/01/19 08:59 Last Admin: 08/02/19 10:22 Dose: Not Given Documented by: Gabapentin (Neurontin) 300 mg PO TID [facility] Stop: 08/31/19 13:59 Last Admin: 08/02/19 20:49 Dose: 300 mg Documented by: Metoprolol Succinate (Toprol Xl) 12.5 mg PO [facility] Stop: 08/31/19 12:44 Last Admin: 08/02/19 07:37 Dose: 12.5 mg Documented by: Nitroglycerin (Nitrostat) 0.4 mg SL PRN PRN PRN Reason: Chest Pain Stop: 08/31/19 12:38 Potassium Chloride (Klor-Con M20) 20 meq PO [facility] Stop: 08/31/19 12:44 Last Admin: 08/02/19 07:37 Dose: 20 meq Documented by: Senna/Docusate Sodium (Senokot S) 1 tab PO DAILY PRN PRN Reason: constipation Stop: 08/31/19 12:38 Sertraline HCl (Zoloft) 25 mg PO DAILY [facility] Stop: 08/31/19 12:44 Last Admin: 08/02/19 07:36 Dose: 25 mg Documented by: Umeclidinium/Vilanterol (Anoro Ellipta 62.5/25 Mcg Inh) 1 puffs INH DAILY [facility] Stop: 09/01/19 08:59 Last Admin: 08/02/19 10:22 Dose: Not Given Documented by: (1) Acute and chronic respiratory failure Respiratory failure complication: hypoxia and hypercapnia Qualified Code(s): J96.21 - Acute and chronic respiratory failure with hypoxia; J96.22 - Acute and chronic respiratory failure with hypercapnia (2) Anemia Anemia type: unspecified type Qualified Code(s): D64.9 - Anemia, unspecified (3) COPD (chronic obstructive pulmonary disease) COPD type: unspecified COPD Qualified Code(s): J44.9 - Chronic obstructive pulmonary disease, unspecified
[2019-08-03] MEDS ORDERED: FUROSEMIDE 10 MG in SYRINGE 0 ML IV ONE (09:45)
--- NOTE | 2019-08-03 11:02 | Pulmonology Progress Note ---
Date of Service August 03, 2019 Assessment & Plan (1) Hypertensive urgency: Impression: 74-year-old female with chronic hypoxemic respiratory failure admitted now with hypertensive urgency and pulmonary edema. She is markedly improved with control of her blood pressure, 1 dose of diuretics, and a brief trial of noninvasive positive pressure ventilation. She appears to be back to her baseline at 5 L/min. She again is not interested in pursuing aggressive interventions at this point time and has declined a blood gas during this hospitalization. Recommendations: 1. Acute on chronic hypoxemic and hypercarbic respiratory failure. Review of prior blood gases in her venous blood gas on this admission demonstrate likely chronic hypercarbic respiratory failure and the patient would benefit from nocturnal positive airway pressure. The patient did well with BiPAP 10/5 last night and recommended that she be set up with home AVAPS/trilogy with outpatient follow-up in the pulmonary clinic. Will need to be coordinated with case managment. 2. Pulmonary hypertension: Suspect group 2 and group 3. No indication for vasodilators or additional invasive diagnostic testing. 3. Confirmed DNR status. Out of bed as tolerated. PT and OT 4. Likely severe obstructive lung disease: PFTs are not available. Continue Anoro 1 puff daily. No indication for steroids or antibiotics currently. Needs to get out of bed and ambulate. Appears back to baseline. Okay to discharge from a pulmonary standpoint. Can follow-up in pulmonary clinic in a few weeks (2) Acute and chronic respiratory failure: Respiratory failure complication: hypoxia and hypercapnia Qualified Code(s): J96.21 - Acute and chronic respiratory failure with hypoxia; J96.22 - Acute and chronic respiratory failure with hypercapnia (3) COPD (chronic obstructive pulmonary disease): COPD type: unspecified COPD Qualified Code(s): J44.9 - Chronic obstructive pulmonary disease, unspecified (4) CHF (congestive heart failure): Heart failure type: biventricular Qualified Code(s): I50.82 - Biventricular heart failure Admission and Anticipated Discharge Date Admission Date: August 01, 2019 Subjective Patient seen and examined. She is using her BiPAP this morning. She continues to relate that it is medically beneficial. She is asking about when she can potentially go home. Her breathing status is overall improved. Review of Systems Review of Systems: Unchanged from prior Physical Exam Physical Exam: GENERAL: elderly frail female, not in acute distress, using 5L of O2 via NC HEENT: NC/AT, no icterus. EOMI, PERRL NECK: No JVD, no neck masses CARDIOVASCULAR: S1, S2 heard, regular rate and rhythm, no murmur, no gallop. RESPIRATORY SYSTEM: No accessory muscle use. Using 5L O2 via NC, somewhat diminished lung sounds, +bibasilar crackles ABDOMEN: Soft, bowel sounds present, nontender. No distention. CENTRAL NERVOUS SYSTEM: Alert and oriented x3, no facial symmetry, speech fluent, moves all extremities spontaneously and without difficulty EXTREMITIES: No lower extremity edema, moves all 4 extremities spontaneously Results & Data Results & Data ([facility]) Vital Signs (Past 12 Hours) Vital Signs Temp Pulse Pulse Resp BP Pulse Ox 08/03/19 08:25 59 L 18 100 08/03/19 08:11 36.8 C 83 17 113/64 100 08/03/19 05:02 86 16 90 08/03/19 03:59 36.5 C 79 26 H 148/63 H 90 08/03/19 00:00 64 08/02/19 23:40 36.7 C 66 18 103/59 L 90 Laboratory Results 08/03/19 06:35 08/03/19 06:35 Diagnostic Findings No new imaging PG Care Time/CCT Total # of Minutes Spent Total Time Spent with Patient: Total time spent is greater than 50% in coordination of care (as documented) at patient's floor/unit and/or counseling patient: Coding Level of Care Code 48990 Subseq Hosp Care Lvl 2 Diagnoses Hypertensive urgency I16.0 Acute and chronic respiratory failure J96.21; J96.22 Respiratory failure complication: hypoxia and hypercapnia COPD (chronic obstructive pulmonary disease) J44.9 COPD type: unspecified COPD CHF (congestive heart failure) I50.82 Heart failure type: biventricular
[2019-08-03] MEDS: GABAPENTIN 300 MG CAP PO SCH ×3 (12:47→20:42)
[2019-08-03] MEDS: UMECLIDINIUM/VILANTEROL 62.5/25MCG 7 PUFFS/INHALER INH SCH (12:48)
[2019-08-03] MEDS: FUROSEMIDE 20 MG TAB PO SCH (12:49)
[2019-08-03] MEDS: FOLIC ACID 1 MG TAB PO SCH (12:49)
[2019-08-03] MEDS: ASPIRIN 81 MG ECTAB PO SCH (12:50)
[2019-08-03] MEDS: POTASSIUM CHLORIDE 20 MEQ TABCR PO SCH (12:50)
[2019-08-03] MEDS: SERTRALINE HCL 50 MG TABLET PO SCH (12:50)
[2019-08-03] MEDS: CLOPIDOGREL BISULFATE 75 MG TAB PO SCH (12:51)
[2019-08-03] MEDS: METOPROLOL SUCC 25MG EXT REL TAB PO SCH (12:52)
[2019-08-03] MEDS: NICOTINE 7 MG/24 HR TDSY TD SCH (15:22)
[2019-08-03] MEDS: POLYETHYLENE (MIRALAX) 17 GM PACK PO SCH (18:12)
[2019-08-04] MEDS: HYDROCODONE/ACETAMOPHEN 5/325MG TAB PO PRN ×2 (07:21→23:40)
[2019-08-04 07:23] LABS: Hematocrit (blood only) 30.9 % (37-47); Hemoglobin 9.7 g/dL (12.0-16.0); Mean Corpuscular Hemoglobin 30.4 pg (25-34); Mean Corpuscular Hgb Conc 31.4 g/dL (32-36); Mean Corpuscular Volume 96.9 fL (80-100); Mean Platelet Volume 9.5 fL (7.4-10.4); Platelet Count 206 K/uL (130-400); RDW Coefficient of Variation 15.7 % (11.5-14.5); RDW Standard Deviation 54.4 fL (36.4-46.3); Red Blood Count 3.19 M/uL (4.2-5.4); White Blood Count 4.25 K/uL (4.8-10.8)
[2019-08-04] MEDS: GABAPENTIN 300 MG CAP PO SCH ×3 (07:24→20:02)
[2019-08-04] MEDS: ASPIRIN 81 MG ECTAB PO SCH (07:25)
[2019-08-04] MEDS: SERTRALINE HCL 50 MG TABLET PO SCH (07:26)
[2019-08-04] MEDS: POTASSIUM CHLORIDE 20 MEQ TABCR PO SCH (07:27)
[2019-08-04] MEDS: CLOPIDOGREL BISULFATE 75 MG TAB PO SCH (07:27)
[2019-08-04] MEDS: FOLIC ACID 1 MG TAB PO SCH (07:27)
[2019-08-04] MEDS: FUROSEMIDE 20 MG TAB PO SCH (07:27)
[2019-08-04] MEDS: UMECLIDINIUM/VILANTEROL 62.5/25MCG 7 PUFFS/INHALER INH SCH (07:28)
[2019-08-04] MEDS: POLYETHYLENE (MIRALAX) 17 GM PACK PO SCH (07:30)
[2019-08-04] MEDS: METOPROLOL SUCC 25MG EXT REL TAB PO SCH (07:31)
[2019-08-04 07:49] LABS: BUN Creatinine Ratio 22.2 (10-20); Calcium 8.4 mg/dl (8.5-10.1); Creatinine Clr Calc Pharmacy 30.5 ml/min; Est GFR (African American) 46.2; Est GFR (Non-African American) 39.8; Magnesium 2.6 mg/dl (1.8-2.4); Potassium 4.2 mmol/L (3.5-5.1)
[2019-08-04 07:50] LABS: Phosphorus 3.8 mg/dl (2.5-4.9)
--- NOTE | 2019-08-04 07:53 | Hospitalist Progress Note ---
Date of Service August 04, 2019 Assessment & Plan (1) Acute and chronic respiratory failure: Acute on chronic hypoxemic and hypercarbic respiratory failure (2) Acute on chronic diastolic (congestive) heart failure: (3) Hypertensive urgency: (4) Flash pulmonary edema: (5) COPD (chronic obstructive pulmonary disease): Chronic respiratory failure on 5L oxygen at baseline Pt is 74 y/o F with PMH COPD, chronic respiratory on 5 L oxygen, nonobstructive CAD on 2010 cath, CVA, chronic diastolic congestive heart failure, HTN, CKD III, tobacco use, iron deficiency anemia, sleep apnea presented to ER for shortness of breath. In ER pt was found to be in respiratory distress, hypertensive, hypoxic Initial vitals pt afebrile, P: 84, R: 32, BP: 204/156, 85% on RA. In ER started on BiPAP, given sublingual nitro, nitro drip was started, and given 40 mg Lasix IV. Patient with decreased respiratory distress on BiPAP. Chest x-ray consistent with CHF. No leukocytosis, Negative troponin - on admission ABG was ordered however pt refused Covid 19 PCR- negative During last hospitalization, echocardiogram was obtained, on June 18, it showed mild concentric LVH, no regional wall motion abnormalities noted. EF 55 to 60%. Right ventricle normal size and function. Mild MR, moderate TR. Pulmonary artery systolic pressure 49. Diastolic dysfunction grade 2. Pt with history hospitalization in 05/2019 for flash pulmonary edema, acute decompensated heart failure, acute respiratory failure. During that admission cardiac cath was recommended, however patient declined and is not interested in any invasive procedures. Palliative care was consulted. Patient was discharged home, with plan to transition to home hospice if her clinical status declines. She now presents with acute respiratory failure, and pt called EMS herself. Initially admitted to ICU, on BiPAP and IV nitro drip. She was however soon downgraded to PCU level of care. Ointment Mill Tender/pulmonary consulted - Review of prior blood gases in her venous blo od gas on this admission demonstrate likely chronic hypercarbic respiratory failure and the patient may benefit from nocturnal positive airway pressure. Trial of BiPAP nightly at 10/5 to see if she can tolerate it. Patient used BiPAP overnight, and tolerated well. Can consider trying to get the patient set up with an outpatient AVAPS unit, also recommend outpatient follow-up in the pulmonary clinic (patient followed in [facility] [address] pulmonary clinic in the past) Updated pulmonology recommendations: Due to chronic respiratory failure consequent to COPD, patient now requires a noninvasive home ventilator. Bilevel therapy with and without a rate would be ineffective as patient requires a volume targeted mode. Ventilation is required to decrease work of breathing and improve pulmonary status. Interruption of ventilator support would lead to decline of health status. NIMV settings should be AVAPS-AE; Breath rate: auto; Inspiratory time:auto; Sigh: off; PS min: 5; PS max 30; EPAP min: 5; EPAP max: 15; AVAPS rate: 1-5 During sleep and as needed Pulmonary hypertension: Suspect group 2 and group 3. No indication for vasodilators or additional invasive diagnostic testing. Likely severe obstructive lung disease: PFTs are not available. She is not overtly bronchospastic currently. We will continue as needed inhalers. Transition from Incruse to Anoro 1 puff daily. No indication for steroids or antibiotics from pulmonary standpoint. Hx of nonobstructive CAD, on beta-rasta, aspirin Plavix, statin Cardiology consulted - had a long discussion with the patient regarding importance of compliance with current medical therapies. Pt expressed desire to avoid further invasive medical procedures. Considering palliative care/hospice at this time. Blood pressure has normalized with improvement of respiratory status on IV nitro infusion. Her intravenous nitroglycerin infusion was then discontinued. Recommend addition of oral diuretic therapy, furosemide 20 mg daily. She may require reduction in frequency pending renal response to daily diuretic therapy. (6) Hypertension: Hypertensive in ER, improved on nitro drip - continue home metoprolol. Blood pressure was high in the ED, she was started on nitro drip in the ER which was tapered off. -She also received IV Lasix on admission -we will closely monitor the blood pressure, cardiology consulted, recommend daily Lasix 20 mg, adjust as needed/may require reduction in frequency pending renal response (7) Hypokalemia: K: 3.4 on admission replace and monitor (8) CKD (chronic kidney disease), stage III: Cr: 1.34. Recent baseline Cr ~1.2 (9) Depression: - previously on citalopram. Due to prolonged QTc, and episode of VT, Celexa discontinued during last admission - Currently patient on Zoloft 25 mg daily - cont. to closely monitor (10) Anemia: -Iron deficiency anemia, Current Hgb ~9 Cont. to monitor H&H (11) Tobacco use disorder: - pt states she re-started to smoke - cont. nicotine patch Dispo: Initially admitted to ICU, then soon downgraded to PCU Code Status: DNR/DNI as per discussion with pt and pt's daughter Annmarie Follows with Dr Quintanilla for routine care Admission and Anticipated Discharge Date Admission Date: August 01, 2019 Subjective Patient sitting up in bed, in no acute distress. Currently on 5 L of nasal cannula, at baseline. She states that she feels quite tired. She was seen by palliative medicine, patient is not ready for hospice at this moment. She is interested in trilogy machine, as pulmonary medicine recommended. Case management aware and in process of obtaining the machine for the patient. Patient otherwise denies any fevers, chills, chest pain, abdominal pain, nausea or vomiting. Contacted patient's daughter Annmarie and updated her. Patient asked me to contact her other daughter, Emilee, however I could not reach Emilee. Annmarie will be updating Emilee and the rest of the family. Review of Systems Review of Systems: All systems reviewed & are unremarkable except as noted in HPI & below Constitutional: no fever and no chills Respiratory: + cough (mild) and + dyspnea (Much improved) Cardiovascular: no chest pain and no palpitations Gastrointestinal: no abdominal pain, no nausea and no vomiting Physical Exam Physical Exam: GENERAL: elderly frail female, not in acute distress, using 5L of O2 via NC HEENT: NC/AT, no icterus. EOMI, PERRL NECK: No JVD, no neck masses CARDIOVASCULAR: S1, S2 heard, regular rate and rhythm, no murmur, no gallop. RESPIRATORY SYSTEM: No accessory muscle use. Using 5L O2 via NC, somewhat diminished lung sounds, + diffuse crackles (improved) +wheezes ABDOMEN: Soft, bowel sounds present, nontender. No distention. CENTRAL NERVOUS SYSTEM: Alert and oriented x3, no facial symmetry, speech fluent, moves all extremities spontaneously and without difficulty EXTREMITIES: No lower extremity edema, moves all 4 extremities spontaneously SKIN: warm, dry, no rashes or lesions Results & Data Results & Data ([facility]) Vital Signs (Past 12 Hours) Vital Signs Temp Pulse Pulse Resp BP Pulse Ox 08/04/19 07:30 36.7 C 68 20 110/64 93 08/04/19 03:48 36.5 C 60 16 103/60 93 08/04/19 03:09 50 L 14 96 08/03/19 22:12 57 L 17 98 Laboratory Results 08/04/19 08/04/19 Range/Units 06:52 06:52 WBC 4.25 L (4.8-10.8) K/uL RBC 3.19 L (4.2-5.4) M/uL Hgb 9.7 L (12.0-16.0) g/dL Hct 30.9 L (37-47) % MCV 96.9 (80-100) fL MCH 30.4 (25-34) pg MCHC 31.4 L (32-36) g/dL RDW Std Deviation 54.4 H (36.4-46.3) fL RDW Coeff of Sriram 15.7 H (11.5-14.5) % Plt Count 206 (130-400) K/uL MPV 9.5 (7.4-10.4) fL Sodium 143 (136-145) mmol/L Potassium 4.2 (3.5-5.1) mmol/L Chloride 108 H (98-107) mmol/L Carbon Dioxide 31 (21-32) mmol/L Anion Gap 4.0 (3-11) BUN 29 H (7-18) mg/dl Creatinine 1.30 H (0.6-1.2) mg/dl Est Cr Clr Drug Dosing 30.5 ml/min Est GFR ( Amer) 46.2 Est GFR (Non-Af Amer) 39.8 BUN/Creatinine Ratio 22.2 H (10-20) Glucose 80 (70-99) mg/dl Calcium 8.4 L (8.5-10.1) mg/dl Phosphorus 3.8 (2.5-4.9) mg/dl Magnesium 2.6 H (1.8-2.4) mg/dl Medications Administered Current Inpatient Medications Acetaminophen (Tylenol) 650 mg PO Q4H PRN PRN Reason: Pain or Fever Stop: 08/31/19 14:33 Hydrocodone Bitart/Acetaminophen (Hardin 5/325) 1 tab PO Q8H PRN PRN Reason: Pain Stop: 08/15/19 12:53 Last Admin: 08/04/19 07:21 Dose: 1 tab Documented by: Albuterol (Ventolin Hfa) 2 puffs INH QID PRN PRN Reason: Shortness Of Breath Or Wheezin Stop: 08/31/19 12:38 Last Admin: 08/03/19 05:00 Dose: 2 puffs Documented by: Aspirin (Ecotrin Ectab) 81 mg PO [facility] Stop: 08/31/19 12:44 Last Admin: 08/04/19 07:25 Dose: 81 mg Documented by: Clopidogrel Bisulfate (Plavix) 75 mg PO QAM [facility] Stop: 08/31/19 12:44 Last Admin: 08/04/19 07:27 Dose: 75 mg Documented by: Fluticasone Propionate (Flonase) 2 sprays TAY DAILY PRN PRN Reason: Nasal Congestion Stop: 08/31/19 12:38 Folic Acid (Folvite) 1 mg PO DAILY [facility] Stop: 08/31/19 12:44 Last Admin: 08/04/19 07:27 Dose: 1 mg Documented by: Furosemide (Lasix) 20 mg PO [facility] Stop: 09/01/19 08:59 Last Admin: 08/04/19 07:27 Dose: 20 mg Documented by: Gabapentin (Neurontin) 300 mg PO TID [facility] Stop: 08/31/19 13:59 Last Admin: 08/04/19 07:24 Dose: 300 mg Documented by: Metoprolol Succinate (Toprol Xl) 12.5 mg PO [facility] Stop: 08/31/19 12:44 Last Admin: 08/04/19 07:31 Dose: 12.5 mg Documented by: Miscellaneous (Remove Nicoderm Patch) 1 ea N/A DAILY@0859 [facility] Stop: 09/03/19 08:58 Nicotine (Nicoderm Cq) 7 mg TD [facility] Stop: 09/02/19 14:14 Last Admin: 08/03/19 15:22 Dose: 7 mg Documented by: Nitroglycerin (Nitrostat) 0.4 mg SL PRN PRN PRN Reason: Chest Pain Stop: 08/31/19 12:38 Polyethylene Glycol (Miralax Powder Packet) 17 gm PO DAILY [facility] Stop: 09/02/19 18:14 Last Admin: 08/04/19 07:30 Dose: 17 gm Documented by: Potassium Chloride (Klor-Con M20) 20 meq PO QAM [facility] Stop: 08/31/19 12:44 Last Admin: 08/04/19 07:27 Dose: 20 meq Documented by: Senna/Docusate Sodium (Senokot S) 1 tab PO DAILY PRN PRN Reason: constipation Stop: 08/31/19 12:38 Sertraline HCl (Zoloft) 25 mg PO DAILY [facility] Stop: 08/31/19 12:44 Last Admin: 08/04/19 07:26 Dose: 25 mg Documented by: Umeclidinium/Vilanterol (Anoro Ellipta 62.5/25 Mcg Inh) 1 puffs INH DAILY [facility] Stop: 09/01/19 08:59 Last Admin: 08/04/19 07:28 Dose: 1 puffs Documented by: (1) Acute and chronic respiratory failure Respiratory failure complication: hypoxia and hypercapnia Qualified Code(s): J96.21 - Acute and chronic respiratory failure with hypoxia; J96.22 - Acute and chronic respiratory failure with hypercapnia (2) COPD (chronic obstructive pulmonary disease) COPD type: unspecified COPD Qualified Code(s): J44.9 - Chronic obstructive pulmonary disease, unspecified (3) Anemia Anemia type: unspecified type Qualified Code(s): D64.9 - Anemia, unspecified
[2019-08-04] MEDS: NICOTINE 7 MG/24 HR TDSY TD SCH (11:50)
--- NOTE | 2019-08-04 13:00 | Palliative Care Consultation ---
Date of Consultation August 04, 2019 Assessment & Plan (1) Goals of care, counseling/discussion: -74 year old female patient with PMH COPD and chronic respiratory failure on 3-4 liters oxygen, nonobstructive CAD and catheterization in 2010, PAD, CVA, chronic diastolic CHF, htn, CKD stage III, chronic hip pain, history of tobacco use, protein-calorie malnutrition, iron deficiency anemia, depression, history of sleep apnea, and others, presented to the hospital three days ago with c/o SOB. She was hypoxic at 85% on room air in ED-- placed on bipap and improved. CXR consistent with CHF, was given dose of diuretic. Pulmonology following and recommends positive airway pressure at night for sleep apnea. Case management is working on setting this up. Patient met with palliative MD during last admission in May 2019, but wasn't quite ready for hospice yet. She is now requesting to speak with palliative care again and is interested in hospice. Palliative care consulted to discuss goals of care. -Patient to be seen by palliative MD this afternoon. Patient is able to make her own decisions. She did previously tell us that her two daughters are involved. -Given patient's chronic, severe respiratory failure with chronic oxygen use at home, as well as other comorbidities and repeat hospitalizations, she would certainly qualify for home hospice care. This will be discussed with her. -Case management note reviewed. Patient has caregivers during the day from 8am- 4pm. Her granddaughter stops in daily and helps as well. Patient requested a referral back to [facility]. This agency also has hospice, would be an easy transition when/if patient ready for hospice. -Trilogy is being set up for home. Typically, hospice does not set patient's up with new Triology devices. Patient needs to decide if she wants to continue Triology use or transition to hospice now. If she wants the Triology, will likely need to go home with home health first, then transition to hospice when ready. -Further recommendations to follow. We will follow. (2) Acute and chronic respiratory failure: Respiratory failure complication: hypoxia and hypercapnia Qualified Code(s): J96.21 - Acute and chronic respiratory failure with hypoxia; J96.22 - Acute and chronic respiratory failure with hypercapnia (3) Hypoxia: Supervising Physician Co-Signing Physician Notes Chart reviewed, patient seen and examined, collaborated with HARRY Rodriguez. Patient reports she had been smoking-removes her oxygen and smokes approximately 5 times a day-she states this is likely what precipitated this hospitalization. Discussed smoking cessation to avoid hospitalization. Patient with trilogy set up at bedside-has been tolerating it well as an inpatient. Patient amenable to having this at home. Discussed patient's disease proximal rest as well as buildup of CO2 causing confusion-she needs to notify caregivers as well as her granddaughter that with any confusion they need to place the trilogy on her during the day. She knows she will need it at night, talked about using it as needed during the day if she gets more short of breath. Discussed when to transition to hospice care-patient not ready at this time. Does understand when and how to make a referral. Patient reports she has been on continuous O2 for approximately 1 year, and is currently on 5 L at home. PE: Patient awake, alert and oriented, no acute distress. No significant increased shortness of breath with conversation HEENT: EOMI, hearing within normal limits Respiratory: Unlabored, good breath sounds bilaterally CV: Regular rate, no edema Abdomen: Soft, nontender Extremities: Full range of motion Neuro: Alert and oriented x4 Agree with above note, assessment and plan as per HARRY Rodriguez. Recommend patient discharged home with home health on trilogy-patient aware when and how to be referred to hospice when ready. History of Present Illness Attending Physician: Dano Wolff MD History of Present Illness This 74 year old female patient with PMH COPD and chronic respiratory failure on 3-4 liters oxygen, nonobstructive CAD and catheterization in 2010, PAD, CVA, chronic diastolic CHF, htn, CKD stage III, chronic hip pain, history of tobacco use, protein-calorie malnutrition, iron deficiency anemia, depression, history of sleep apnea, and others, presented to the hospital three days ago with c/o SOB. She was hypoxic at 85% on room air in ED-- placed on bipap and improved. CXR consistent with CHF, was given dose of diuretic. Pulmonology following and recommends positive airway pressure at night for sleep apnea. Case management is working on setting this up. Patient met with palliative MD during last admission in May 2019, but wasn't quite ready for hospice yet. She is now requesting to speak with palliative care again and is interested in hospice. Palliative care consulted to discuss goals of care. Thank you kindly for this consult. Palliative care team will follow as needed. Allergies Allergy/AdvReac Type Severity Reaction Status Date / Time ciprofloxacin Allergy Mild ITCHY Verified 08/01/19 07:48 azithromycin Allergy Unknown Unknown Verified 08/01/19 07:48 Nitrate Analogues Allergy Unknown UNSURE; Verified 08/01/19 07:48 BUT PATIENT TAKES NITROSTAT PER ADMIT MED REC. nitrofurantoin Allergy Unknown UNSURE Verified 08/01/19 07:48 pneumococcal vaccine Allergy Unknown unk Verified 08/01/19 07:48 Influenza Virus Vaccines AdvReac Mild HIVES ON Verified 08/01/19 07:48 THE SITE Home Medications Home Medications Medication Instructions Recorded Confirmed Type albuterol sulfate [Ventolin HFA] 2 puff INHALATION QID PRN 12/28/17 08/01/19 History aspirin 81 mg PO QAM 12/28/17 08/01/19 History clopidogrel 75 mg PO QAM 12/28/17 08/01/19 History fluticasone propionate 2 spray INTRANASAL DAILY PRN 12/28/17 08/01/19 History folic acid 1 mg PO DAILY 12/28/17 08/01/19 History metoprolol succinate 12.5 mg PO QAM 12/28/17 08/01/19 History nitroglycerin 0.4 mg SUBLINGUAL DIRECTED PRN 12/28/17 08/01/19 History hydrocodone-acetaminophen 1 tab PO Q8H PRN 5 Days #15 tab 03/24/19 08/01/19 Rx gabapentin 300 mg PO TID 05/09/19 08/01/19 History sennosides-docusate sodium 1 tabcap PO DAILY PRN #30 tab 05/13/19 08/01/19 Rx [Senokot-S] Incruse Ellipta 1 inh INHALATION DAILY 06/18/19 08/01/19 History potassium chloride 20 meq PO QAM 06/18/19 08/01/19 History mupirocin 1 applic TOPICAL UD 08/01/19 08/01/19 History sertraline 25 mg PO DAILY 08/01/19 08/01/19 History Patient History Medical History Avascular necrosis (Chronic) CAD (coronary artery disease) (Chronic) Cardiac cath 2010-nonobstructive disease Carotid stenosis (Chronic) Chronic hip pain Chronic respiratory failure with hypoxia (Chronic) CKD (chronic kidney disease), stage III COPD (chronic obstructive pulmonary disease) (Chronic) CVA (cerebral vascular accident) (Chronic) Depression (Chronic) Diastolic CHF (Chronic) Dyslipidemia (Chronic) Hip pain, right (Chronic) HTN (hypertension) (Acute) Hypertension (Chronic) DAYNA (iron deficiency anemia) (Chronic) IPMN (intraductal papillary mucinous neoplasm) (Chronic) Lumbar back pain (Chronic) PAD (peripheral artery disease) (Chronic) S/P stenting of the right distal common and right external iliac arteries Pancreatic duct stricture (Chronic) S/P stent Recurrent pancreatitis (Chronic) Sleep apnea (Chronic) Tobacco use disorder (Chronic) Surgical History H/O ventral hernia repair (Chronic) History of appendectomy (Chronic) History of cholecystectomy (Chronic) History of hysterectomy (Chronic) Family History Mother Stroke Father Stroke Social History Preferred Language: Kiswahili Communication Ability: Effective Visual Impairment: No Limitations Billing And Accounting Staff Assistant Required: No Beliefs That Will Affect Care: None marital status: / Current Living Situation: Alone Current Living Situation Comment: Caregivers 9a-5p daily x 40hrs/wk Other Information That Helps Us Care for You: No Feels Safe at Home: Yes Safety Concerns: Feels Safe At This Time Smoking Status: Current every day smoker Tobacco Type: cigarettes ; Cigarettes Per Day: 20 ; Do You Dip or Chew Tobacco: No ; Second Hand Exposure: No ; Tobacco Cessation Education Requested by Patient: No Hx Alcohol Use: Yes Alcohol type: wine Hx Substance Use: Yes substance use type: painkillers Results & Data Vital Signs (Past 12 Hours) Vital Signs Temp Pulse Pulse Resp BP Pulse Ox 08/04/19 12:37 136/65 08/04/19 12:32 36.8 C 63 18 94 08/04/19 07:30 36.7 C 68 20 110/64 93 08/04/19 03:48 36.5 C 60 16 103/60 93 08/04/19 03:09 50 L 14 96 Coding Level of Care Code 66461 Inpt Consult Level 3 Diagnoses Goals of care, counseling/discussion Z71.89 Acute and chronic respiratory failure J96.21; J96.22 Respiratory failure complication: hypoxia and hypercapnia Hypoxia R09.02 Time Spent (min) 80 Time Spent Midlevel A total of 50 minutes spent by this PREVENTIVE MEDICINE PHYSICIAN in reviewing chart, speaking with physicians and IDT regarding patient condition, plan and goals of care. Attending Spent 30 minutes in addition to the 50 minutes spent by HARRY Rodriguez for total of 80 minutes assessing patient and discussing goals of care.
--- NOTE | 2019-08-04 15:37 | Pulmonology Progress Note ---
Date of Service August 04, 2019 Assessment & Plan (1) Acute on chronic respiratory failure with hypoxia and hypercapnia: Patient with history of tobacco abuse and still smokes approximately 5 cigarettes/day Presented with hypoxia and hypercapnia with a VBG PCO2 of 66 Tolerated BiPAP Would benefit from trilogy with AVAPS on discharge Due to chronic respiratory failure consequent to COPD, patient now requires a noninvasive home ventilator. Bilevel therapy with and without a rate would be i neffective as patient requires a volume targeted mode. Ventilation is required to decrease work of breathing and improve pulmonary status. Interruption of ventilator support would lead to decline of health status. NIMV settings should be AVAPS-AE; Breath rate: auto; Inspiratory time:auto; Sigh: off; PS min: 5; PS max 30; EPAP min: 5; EPAP max: 15; AVAPS rate: 1-5 During sleep and as needed We will try and coordinate with case management to discharge with trilogy. (2) COPD (chronic obstructive pulmonary disease): Most recent pulmonary function test was apparently done in 2011 Last pulmonary appointment was 04/18/2011 with HARRY Claire at [facility] Would recommend the patient follow-up with pulmonary as she is on baseline sup plemental O2 of 3 to 5 L/min via nasal cannula as well as chronic hypercapnia COPD type: unspecified COPD Qualified Code(s): J44.9 - Chronic obstructive pulmonary disease, unspecified (3) Pulmonary hypertension: Suspect group 2 or group 3 pulmonary hypertension. There is no indication of vasodilators at this time. Continue supplemental oxygen Follow-up patient with pulmonary (4) Tobacco use disorder: Patient still smoking 5 cigarettes/day Discussed need for complete cessation Further discussed dangers of smoking while on chronic supplemental oxygen Patient states that she takes off her oxygen and is approximately 10 to 15 feet away from her concentrator. Again emphasized need for complete tobacco abstention Patient understands. (5) CHF (congestive heart failure): Echocardiogram completed in May This is biventricular heart failure with preserved left ventricular systolic function. Continue management of hypertension Further management outpatient Thank you very much for including us in the care of this patient. Would recommend discharge home and follow-up with the [facility] pulmonary clinic for pulmonary function testing and polysomnography. Patient was seen by palliative medicine and at this time is refusing hospice but would benefit from end-of-life care. Heart failure type: biventricular Qualified Code(s): I50.82 - Biventricular heart failure Admission and Anticipated Discharge Date Admission Date: August 01, 2019 Subjective Attending: Dr. Beasley Patient seen and examined at bedside. She presented with acute respiratory f ailure and was found to have hypercapnia with VBG's. Her PCO2 was 66. She was placed on BiPAP and did reasonably well and stated that she tolerated the BiPAP all night long. Patient has not had any recent PFTs and it appears as though possibly she has some in 2011. Patient denies any history of polysomnography but was told that she has obstructive sleep apnea. Patient is chronically on supplemental O2 at home and currently does not follow with a negative restorer. Her last pulmonary appointment was April 18, 2011. She previously followed with Dr. Shar Rojas at [facility] pulmonary office. Patient states that she is feeling close to baseline. She has no chest pain or tightness. She has no cough or sputum production. She denies any hemoptysis. She is tolerating her meals but states that she cannot tolerate meat and refuses intervention with pured food or chopped food. She denies any history of aspiration and denies any cough with ingestion. The patient has no other acute complaints. Review of Systems Review of Systems: All systems reviewed & are unremarkable except as noted in HPI & below Physical Exam Physical Exam: GENERAL : No acute distress EYES: No icterus, gaze conjugate NOSE: No evidence of epistaxis MOUTH: No lesions or candidiasis NECK: Supple. No evidence of stridor LUNGS: Patient has some bibasilar rales. She has no rhonchi there is appreciated. She has no evidence of bronchospasm. HEART: Regular, rate controlled with no evidence of murmurs gallops or rubs. ABDOMEN: Soft, NT, ND, BS Present EXTREMITIES: No LE edema, pedal pulses intact NEURO: A&OX3 Results & Data Results & Data ([facility]) Vital Signs (Past 12 Hours) Vital Signs Temp Pulse Resp BP Pulse Ox 08/04/19 12:37 136/65 08/04/19 12:32 36.8 C 63 18 94 08/04/19 07:30 36.7 C 68 20 110/64 93 08/04/19 03:48 36.5 C 60 16 103/60 93 Laboratory Results 08/01/19 07:26 VBG pH 7.27 L VBG pCO2 66 H VBG pO2 48 VBG HCO3 30 VBG O2 Saturation 77.3 VBG Base Excess 1.4 Diagnostic Findings SINGLE VIEW CHEST CLINICAL HISTORY: Follow-up CHF. FINDINGS: An AP, portable, upright chest radiograph is compared to study dated 08/01/2019. The examination is degraded by portable technique and patient rotation. The heart is enlarged noting atherosclerotic calcification. There is pulmonary vascular congestion and mild interstitial edema. Calcified mediastinal and hilar lymph nodes are similar to previous. There are small pleural effusions with bibasilar consolidation. No pneumothorax is seen. The skeletal structures are osteopenic. There are healed left-sided rib fractures. IMPRESSION: 1. Cardiomegaly with evidence of congestive failure and mild interstitial edema. This has modestly improved from yesterday. 2. Small pleural effusions with bibasilar consolidation. ACT 112: Negative or not required by law. Electronically signed by: Flaquito Arana M.D. 08/02/2019 1:18 PM PG Care Time/CCT Total # of Minutes Spent Total Time Spent with Patient: Total time spent is greater than 50% in coordination of care (as documented) at patient's floor/unit and/or counseling patient: 30 minutes [place] [address] Subseq Hosp Care Lvl 2 Patient Type Established History Expanded Problem Focused Exam Expanded Problem Focused Diagnoses Acute on chronic respiratory failure with hypoxia and hypercapnia J96.21; J96.22 COPD (chronic obstructive pulmonary disease) J44.9 COPD type: unspecified COPD Pulmonary hypertension I27.20 Tobacco use disorder F17.200 CHF (congestive heart failure) I50.82 Heart failure type: biventricular Time Spent (min) 30
[2019-08-05] MEDS: HYDROCODONE/ACETAMOPHEN 5/325MG TAB PO PRN ×3 (00:10→21:35)
[2019-08-05] MEDS ORDERED: METOPROLOL TARTRATE 1 MG/ML VIAL IV PRN (00:25)
[2019-08-05] MEDS ORDERED: METOPROLOL TARTRATE 1 MG/ML VIAL IV STA (00:26)
[2019-08-05] MEDS: POLYETHYLENE (MIRALAX) 17 GM PACK PO SCH (07:35)
[2019-08-05] MEDS: FOLIC ACID 1 MG TAB PO SCH (07:37)
[2019-08-05] MEDS: UMECLIDINIUM/VILANTEROL 62.5/25MCG 7 PUFFS/INHALER INH SCH (07:37)
[2019-08-05] MEDS: GABAPENTIN 300 MG CAP PO SCH ×3 (07:37→20:33)
[2019-08-05] MEDS: NICOTINE 7 MG/24 HR TDSY TD SCH (07:38)
[2019-08-05] MEDS: POTASSIUM CHLORIDE 20 MEQ TABCR PO SCH (07:38)
[2019-08-05] MEDS: ASPIRIN 81 MG ECTAB PO SCH (07:38)
[2019-08-05] MEDS: METOPROLOL SUCC 25MG EXT REL TAB PO SCH (07:39)
[2019-08-05] MEDS: SERTRALINE HCL 50 MG TABLET PO SCH (07:40)
[2019-08-05] MEDS: CLOPIDOGREL BISULFATE 75 MG TAB PO SCH (07:40)
[2019-08-05 07:45] LABS: BUN Creatinine Ratio 20.8 (10-20); Calcium 8.2 mg/dl (8.5-10.1); Creatinine Clr Calc Pharmacy 31.7 ml/min; Est GFR (African American) 48.4; Est GFR (Non-African American) 41.8; Magnesium 2.6 mg/dl (1.8-2.4)
[2019-08-05] MEDS: FUROSEMIDE 20 MG TAB PO SCH (08:56)
--- NOTE | 2019-08-05 08:59 | Hospitalist Progress Note ---
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 In ER pt was found to be in respiratory distress, hypertensive, hypoxic Initial vitals pt afebrile, P: 84, R: 32, BP: 204/156, 85% on RA. In ER started on BiPAP, given sublingual nitro, nitro drip was started, and given 40 mg Lasix IV. Patient with decreased respiratory distress on BiPAP. Chest x-ray consistent with CHF. No leukocytosis, Negative troponin - on admission ABG was ordered however pt refused Covid 19 PCR- negative During last hospitalization, echocardiogram was obtained, on June 18, it showed mild concentric LVH, no regional wall motion abnormalities noted. EF 55 to 60%. Right ventricle normal size and function. Mild MR, moderate TR. Pulmonary artery systolic pressure 49. Diastolic dysfunction grade 2. Pt with history hospitalization in 05/2019 for flash pulmonary edema, acute decompensated heart failure, acute respiratory failure. During that admission cardiac cath was recommended, however patient declined and is not interested in any invasive procedures. Palliative care was consulted. Patient was discharged home, with plan to transition to home hospice if her clinical status declines. She now presents with acute respiratory failure, and pt called EMS herself. Initially admitted to ICU, on BiPAP and IV nitro drip. She was however soon downgraded to PCU level of care. Typing Office Worker/pulmonary consulted - Review of prior blood gases in her venous blo od gas on this admission demonstrate likely chronic hypercarbic respiratory failure and the patient may benefit from nocturnal positive airway pressure. Trial of BiPAP nightly at 10/5 to see if she can tolerate it. Patient used BiPAP overnight, and tolerated well. Can consider trying to get the patient set up with an outpatient AVAPS unit, also recommend outpatient follow-up in the pulmonary clinic (patient followed in [facility] pulmonary clinic in the past) Updated pulmonology recommendations: Due to chronic respiratory failure consequent to COPD, patient now requires a noninvasive home ventilator. Bilevel therapy with and without a rate would be ineffective as patient requires a volume targeted mode. Ventilation is required to decrease work of breathing and improve pulmonary status. Interruption of ventilator support would lead to decline of health status. NIMV settings should be AVAPS-AE; Breath rate: auto; Inspiratory time:auto; Sigh: off; PS min: 5; PS max 30; EPAP min: 5; EPAP max: 15; AVAPS rate: 1-5 During sleep and as needed Pulmonary hypertension: Suspect group 2 and group 3. No indication for vasodilators or additional invasive diagnostic testing. Likely severe obstructive lung disease: PFTs are not available. She is not overtly bronchospastic currently. We will continue as needed inhalers. Transition from Incruse to Anoro 1 puff daily. No indication for steroids or antibiotics from pulmonary standpoint. Hx of nonobstructive CAD, on beta-rasta, aspirin Plavix, statin Cardiology consulted - had a long discussion with the patient regarding importance of compliance with current medical therapies. Pt expressed desire to avoid further invasive medical procedures. Considering palliative care/hospice at this time. Blood pressure has normalized with improvement of respiratory status on IV nitro infusion. Her intravenous nitroglycerin infusion was then discontinued. Recommend addition of oral diuretic therapy, furosemide 20 mg daily. She may require reduction in frequency pending renal response to daily diuretic therapy. (6) Hypertension: Hypertensive in ER, improved on nitro drip - continue home metoprolol. Blood pressure was high in the ED, she was started on nitro drip in the ER which was tapered off. -She also received IV Lasix on admission -we will closely monitor the blood pressure, cardiology consulted, recommend daily Lasix 20 mg, adjust as needed/may require reduction in frequency pending renal response (7) Hypokalemia: K: 3.4 on admission replace and monitor (8) CKD (chronic kidney disease), stage III: Cr: 1.34. Recent baseline Cr ~1.2 (9) Depression: - previously on citalopram. Due to prolonged QTc, and episode of VT, Celexa discontinued during last admission - Currently patient on Zoloft 25 mg daily - Currently euthymic effect, pleasant, continue to monitor (10) Anemia: -Iron deficiency anemia, Current Hgb ~9 Cont. to monitor H&H (11) Tobacco use disorder: - pt states she re-started to smoke - cont. nicotine patch Dispo: Initially admitted to ICU, then soon downgraded to PCU Code Status: DNR/DNI as per discussion with pt and pt's daughter Annmarie Follows with Dr Quintanilla for routine care Admission and Anticipated Discharge Date Admission Date: August 01, 2019 Subjective Patient sitting up in bed, in no acute distress. Currently on 5 L of nasal cannula, at baseline. She was seen by palliative medicine, patient is not ready for hospice at this moment. She is interested in trilogy machine, as pulmonary medicine recommended. Patient will be discharged today, with trilogy machine. Patient otherwise denies any fevers, chills, chest pain, abdominal pain, nausea or vomiting. Updated patient's daughter Emilee, who will be picking up patient later today. Review of Systems Review of Systems: All systems reviewed & are unremarkable except as noted in HPI & below Further ROS difficult to obtain at this time with pt on bipap. Constitutional: no fever and no chills Respiratory: + cough (mild) and + dyspnea (Much improved) Cardiovascular: no chest pain and no palpitations Gastrointestinal: no abdominal pain, no nausea and no vomiting Physical Exam Physical Exam: GENERAL: elderly frail female, not in acute distress, using 5L of O2 via NC HEENT: NC/AT, no icterus. EOMI, PERRL NECK: No JVD, no neck masses CARDIOVASCULAR: S1, S2 heard, regular rate and rhythm, no murmur, no gallop. RESPIRATORY SYSTEM: No accessory muscle use. Using 5L O2 via NC, somewhat diminished lung sounds, + diffuse crackles (improved) +wheezes ABDOMEN: Soft, bowel sounds present, nontender. No distention. CENTRAL NERVOUS SYSTEM: Alert and oriented x3, no facial symmetry, speech flue nt, moves all extremities spontaneously and without difficulty EXTREMITIES: No lower extremity edema, moves all 4 extremities spontaneously SKIN: warm, dry, no rashes or lesions Results & Data Results & Data ([facility]) Vital Signs (Past 12 Hours) Vital Signs Temp Pulse Pulse Pulse Resp BP Pulse Ox 08/05/19 08:00 61 08/05/19 07:10 36.7 C 55 L 20 125/73 92 08/05/19 04:00 36.4 C L 65 19 138/54 L 99 08/05/19 03:39 58 L 12 95 08/05/19 01:47 139/60 08/05/19 01:29 59 L 08/04/19 23:48 36.6 C 79 20 169/47 H 91 08/04/19 22:25 70 18 95 Laboratory Results 08/05/19 08/05/19 Range/Units 07:05 06:43 Sodium 141 (136-145) mmol/L Potassium 4.0 (3.5-5.1) mmol/L Chloride 108 H (98-107) mmol/L Carbon Dioxide 28 (21-32) mmol/L Anion Gap 5.0 (3-11) BUN 26 H (7-18) mg/dl Creatinine 1.25 H (0.6-1.2) mg/dl Est Cr Clr Drug Dosing 31.7 ml/min Est GFR ( Amer) 48.4 Est GFR (Non-Af Amer) 41.8 BUN/Creatinine Ratio 20.8 H (10-20) Glucose 69 L (70-99) mg/dl POC Glucose 77 (70-99) mg/dl Calcium 8.2 L (8.5-10.1) mg/dl Phosphorus 4.0 (2.5-4.9) mg/dl Magnesium 2.6 H (1.8-2.4) mg/dl Medications Administered Current Inpatient Medications Acetaminophen (Tylenol) 650 mg PO Q4H PRN PRN Reason: Pain or Fever Stop: 08/31/19 14:33 Hydrocodone Bitart/Acetaminophen (Ludell 5/325) 1 - 2 tab PO Q8H PRN PRN Reason: Pain Stop: 08/15/19 12:53 Last Admin: 08/05/19 07:46 Dose: 1 tab Documented by: Albuterol (Ventolin Hfa) 2 puffs INH QID PRN PRN Reason: Shortness Of Breath Or Wheezin Stop: 08/31/19 12:38 Last Admin: 08/03/19 05:00 Dose: 2 puffs Documented by: Aspirin (Ecotrin Ectab) 81 mg PO QAM AKSHAT Stop: 08/31/19 12:44 Last Admin: 08/05/19 07:38 Dose: 81 mg Documented by: Clopidogrel Bisulfate (Plavix) 75 mg PO [facility] Stop: 08/31/19 12:44 Last Admin: 08/05/19 07:40 Dose: 75 mg Documented by: Fluticasone Propionate (Flonase) 2 sprays TAY DAILY PRN PRN Reason: Nasal Congestion Stop: 08/31/19 12:38 Folic Acid (Folvite) 1 mg PO DAILY [facility] Stop: 08/31/19 12:44 Last Admin: 08/05/19 07:37 Dose: 1 mg Documented by: [facility] (Lasix) [facility] Stop: 09/01/19 08:59 Last Admin: 08/05/19 08:56 Dose: 20 mg Documented by: Gabapentin (Neurontin) 300 mg PO TID [facility] Stop: 08/31/19 13:59 Last Admin: 08/05/19 07:37 Dose: 300 mg Documented by: Metoprolol Succinate (Toprol Xl) 12.5 mg PO [facility] Stop: 08/31/19 12:44 Last Admin: 08/05/19 07:39 Dose: 12.5 mg Documented by: Metoprolol Tartrate (Lopressor) 2.5 mg IV Q6 PRN PRN Reason: CR > 100 Stop: 09/04/19 05:59 Miscellaneous (Remove Nicoderm Patch) 1 ea N/A DAILY@0859 [facility] Stop: 09/03/19 08:58 Last Admin: 08/05/19 07:36 Dose: 1 ea Documented by: Nicotine (Nicoderm Cq) 7 mg TD [facility] Stop: 09/02/19 14:14 Last Admin: 08/05/19 07:38 Dose: 7 mg Documented by: Nitroglycerin (Nitrostat) 0.4 mg SL PRN PRN PRN Reason: Chest Pain Stop: 08/31/19 12:38 Polyethylene Glycol (Miralax Powder Packet) 17 gm PO DAILY [facility] Stop: 09/02/19 18:14 Last Admin: 08/05/19 07:35 Dose: Not Given Documented by: Potassium Chloride (Klor-Con M20) 20 meq PO [facility] Stop: 08/31/19 12:44 Last Admin: 08/05/19 07:38 Dose: 20 meq Documented by: Senna/Docusate Sodium (Senokot S) 1 tab PO DAILY PRN PRN Reason: constipation Stop: 08/31/19 12:38 Sertraline HCl (Zoloft) 25 mg PO DAILY AKSHAT Stop: 08/31/19 12:44 Last Admin: 08/05/19 07:40 Dose: 25 mg Documented by: Umeclidinium/Vilanterol (Anoro Ellipta 62.5/25 Mcg Inh) 1 puffs INH DAILY AKSHAT Stop: 09/01/19 08:59 Last Admin: 08/05/19 07:37 Dose: 1 puffs Documented by: (1) Acute and chronic respiratory failure Respiratory failure complication: hypoxia and hypercapnia Qualified Code(s): J96.21 - Acute and chronic respiratory failure with hypoxia; J96.22 - Acute and chronic respiratory failure with hypercapnia (2) Anemia Anemia type: unspecified type Qualified Code(s): D64.9 - Anemia, unspecified (3) COPD (chronic obstructive pulmonary disease) COPD type: unspecified COPD Qualified Code(s): J44.9 - Chronic obstructive pulmonary disease, unspecified
[2019-08-06] MEDS: HYDROCODONE/ACETAMOPHEN 5/325MG TAB PO PRN (01:40)
[2019-08-06] MEDS ORDERED: ACETAMINOPHEN 325 MG TAB PO PRN (07:41)
[2019-08-06] MEDS: UMECLIDINIUM/VILANTEROL 62.5/25MCG 7 PUFFS/INHALER INH SCH (08:39)
[2019-08-06] MEDS: GABAPENTIN 300 MG CAP PO SCH ×2 (08:39→13:30)
[2019-08-06] MEDS: METOPROLOL SUCC 25MG EXT REL TAB PO SCH (08:40)
[2019-08-06] MEDS: FOLIC ACID 1 MG TAB PO SCH (08:41)
[2019-08-06] MEDS: CLOPIDOGREL BISULFATE 75 MG TAB PO SCH (08:41)
[2019-08-06] MEDS: NICOTINE 7 MG/24 HR TDSY TD SCH (08:41)
[2019-08-06] MEDS: SERTRALINE HCL 50 MG TABLET PO SCH (09:06)
[2019-08-06] MEDS: FUROSEMIDE 20 MG TAB PO SCH (09:06)
[2019-08-06] MEDS: ASPIRIN 81 MG ECTAB PO SCH (09:08)
[2019-08-06] MEDS: POTASSIUM CHLORIDE 20 MEQ TABCR PO SCH (09:08)
[2019-08-06] MEDS: POLYETHYLENE (MIRALAX) 17 GM PACK PO SCH (09:09)
--- NOTE | 2019-08-06 15:06 | Hospitalist Progress Note ---
Date of Service August 06, 2019 Assessment & Plan (1) Acute and chronic respiratory failure: Acute on chronic hypoxemic and hypercarbic respiratory failure (2) Acute on chronic diastolic (congestive) heart failure: (3) Hypertensive urgency: (4) Flash pulmonary edema: (5) COPD (chronic obstructive pulmonary disease): As per previous hospitalist Dr. Wolff "Chronic respiratory failure on 5L oxygen at baseline Pt is 74 y/o F with PMH COPD, chronic respiratory on 5 L oxygen, nonobstructive CAD on 2010 cath, CVA, chronic diastolic congestive heart failure, HTN, CKD III, tobacco use, iron deficiency anemia, sleep apnea presented to ER for shortness of breath. In ER pt was found to be in respiratory distress, hypertensive, hypoxic Initial vitals pt afebrile, P: 84, R: 32, BP: 204/156, 85% on RA. In ER started on BiPAP, given sublingual nitro, nitro drip was started, and given 40 mg Lasix IV. Patient with decreased respiratory distress on BiPAP. Chest x-ray consistent with CHF. No leukocytosis, Negative troponin - on admission ABG was ordered however pt refused Covid 19 PCR- negative During last hospitalization, echocardiogram was obtained, on June 18, it showed mild concentric LVH, no regional wall motion abnormalities noted. EF 55 to 60%. Right ventricle normal size and function. Mild MR, moderate TR. Pulmonary artery systolic pressure 49. Diastolic dysfunction grade 2. Pt with history hospitalization in 05/2019 for flash pulmonary edema, acute decompensated heart failure, acute respiratory failure. During that admission cardiac cath was recommended, however patient declined and is not interested in any invasive procedures. Palliative care was consulted. Patient was discharged home, with plan to transition to home hospice if her clinical status declines. She now presents with acute respiratory failure, and pt called EMS herself. Initially admitted to ICU, on BiPAP and IV nitro drip. She was however soon downgraded to PCU level of care. Pt Sitter/pulmonary consulted - Review of prior blood gases in her venous blood gas on this admission demonstrate likely chronic hypercarbic respiratory failure and the patient may benefit from nocturnal positive airway pressure. Trial of BiPAP nightly at 10/5 to see if she can tolerate it. Patient used BiPAP overnight, and tolerated well. Can consider trying to get the patient set up with an outpatient AVAPS unit, also recommend outpatient follow-up in the pulmonary clinic (patient followed in [facility] pulmonary clinic in the past) Updated pulmonology recommendations: Due to chronic respiratory failure consequent to COPD, patient now requires a noninvasive home ventilator. Bilevel therapy with and without a rate would be ineffective as patient requires a volume targeted mode. Ventilation is required to decrease work of breathing and improve pulmonary status. Interruption of ventilator support would lead to decline of health status. NIMV settings should be AVAPS-AE; Breath rate: auto; Inspiratory time:auto; Sigh: off; PS min: 5; PS max 30; EPAP min: 5; EPAP max: 15; AVAPS rate: 1-5 During sleep and as needed Pulmonary hypertension: Suspect group 2 and group 3. No indication for vasodilators or additional invasive diagnostic testing. Likely severe obstructive lung disease: PFTs are not available. She is not overtly bronchospastic currently. We will continue as needed inhalers. Transition from Incruse to Anoro 1 puff daily. No indication for steroids or antibiotics from pulmonary standpoint. Hx of nonobstructive CAD, on beta-rasta, aspirin Plavix, statin Cardiology consulted - had a long discussion with the patient regarding importance of compliance with current medical therapies. Pt expressed desire to avoid further invasive medical procedures. Considering palliative care/hospice at this time. Blood pressure has normalized with improvement of respiratory status on IV nitro infusion. Her intravenous nitroglycerin infusion was then discontinued. Recommend addition of oral diuretic therapy, furosemide 20 mg daily. She may require reduction in frequency pending renal response to daily diuretic therapy." 08/06/2019 discharge plans (discharge medications sent electronically to [facility] [address], [place] of Furosemide 20 mg oral daily (patient should have follow up comprehensive metabolic panel on follow with primary care doctor) of Nicotine patch (patient advised to quit smoking and use nicoine patch as substitute) of Anoro Ellipta inhaler once daily which was used in the hospitalization (which is to replace home dose Incruse Ellipta) discharge with non-invasive mechanical ventilation (NIMV) therapy settings of the Trelegy machine should be AVAPS-AE; Breath rate: auto; Inspiratory time:auto; Sigh: off; PS min: 5; PS max 30; EPAP min: 5; EPAP max: 15; AVAPS rate: 1-5 During sleep and as needed follow up appointments 08/08/2019 11:00 AM Provider Sanjay Morris MD Department [facility] 08/14/2019 11:30 AM Provider [facility] 08/27/2019 11:00 AM Provider Nurse [facility] [place] [facility] Ancillary Department, [place]) (6) Hypertension: Hypertensive in ER, improved on nitro drip - continue home metoprolol. Blood pressure was high in the ED, she was started on nitro drip in the ER which was tapered off. She also received IV Lasix on admission -continue the cardiology service recommendation of daily Lasix 20 mg, adjust as needed as per outpatient labs by primary care doctor (7) Hypokalemia: resolved (8) CKD (chronic kidney disease), stage III: -Recent baseline Cr ~1.2 -last checked creatinine around 1.25 so this appears to be a stable number (9) Depression: - previously on citalopram. Due to prolonged QTc, and episode of VT, Celexa discontinued during last admission - continue current Zoloft 25 mg daily (10) Anemia: -Iron deficiency anemia (11) Tobacco use disorder: - cont. nicotine patch Code Status: DNR/DNI as per discussion with pt and pt's daughter Annmarie by previous hospitalist Admission and Anticipated Discharge Date Admission Date: August 01, 2019 Subjective There was an aberrantly elevated blood pressure today but on recheck patient is not grossly hypertensive. She appears to be at baseline oxygen use on nasal cannula. The Trelegy to be delivered to patient's home as per case management so ready for hospital discharge today grier removed on 08/06/2019 and patienty voiding as per nurse patient does not have acute shortness of breath. she denies pain in any areas of the body. no dizziness. no lightheadedness. no vomiting Review of Systems Review of Systems: All systems reviewed & are unremarkable except as noted in Subjective Physical Exam Constitutional: comfortable Eyes: PERRL, conjunctivae normal, anicteric sclerae EOM intact bilaterally ENMT: external ear and nose normal, oropharynx normal Neck: trachea midline, no thyromegaly Respiratory: normal respiratory effort, lungs clear to auscultation Cardiovascular: Rate/Rhythm: regular rate Gastrointestinal (Abdomen): normal bowel sounds, soft, nontender, no hepatosplenomegaly Musculoskeletal: Head/Neck/Chest: normocephalic Neurologic: PERRL, EOMI, accommodation nl, no face palsy, no dysarthria Psychiatric: Orientation: alert and cooperative Results & Data Results & Data ([facility]) Vital Signs (Past 12 Hours) Vital Signs Temp Pulse Pulse Pulse Resp BP BP 08/06/19 14:43 100 H 148/62 H 08/06/19 11:00 36.9 C 62 18 205/84 H 08/06/19 07:55 62 08/06/19 07:45 36.5 C 54 L 18 179/69 H 08/06/19 03:47 36.6 C 68 18 165/65 H 08/06/19 03:40 66 Pulse Ox 08/06/19 14:43 08/06/19 11:00 97 08/06/19 07:55 08/06/19 07:45 97 08/06/19 03:47 93 08/06/19 03:40 (1) Acute and chronic respiratory failure Respiratory failure complication: hypoxia and hypercapnia Qualified Code(s): J96.21 - Acute and chronic respiratory failure with hypoxia; J96.22 - Acute and chronic respiratory failure with hypercapnia (2) COPD (chronic obstructive pulmonary disease) COPD type: unspecified COPD Qualified Code(s): J44.9 - Chronic obstructive pulmonary disease, unspecified (3) Anemia Anemia type: unspecified type Qualified Code(s): D64.9 - Anemia, unspecified
--- NOTE | 2019-08-06 15:11 | Discharge Summary ---
Date of Service August 06, 2019 Admission HPI Per Admitting Provider Pt is 74 y/o F with PMH COPD, chronic respiratory on 5 L oxygen, nonobstructive CAD on 2010 cath, CVA, chronic diastolic congestive heart failure, HTN, CKD III, tobacco use, iron deficiency anemia, sleep apnea presented to ER for shortness of breath. Patient reports is been having increased shortness of breath worsened this morning. Denies chest pain, N/V, fever/chills. Denies known Covid contacts. Has granddaughter and aid coming in to house. It is reported earlier patient was on Lasix 60 mg daily and was having dizziness so that was lowered to 40 mg daily however patient has not been taking her medications. Patient has been continuing to smoke and has not been taking her medications regularly. EMS reported patient was found to be in respiratory distress with RR: 25, was on CPAP with O2 98%, BP 233/141, P: 98 and was given 1 DuoNeb treatment. Upon ER arrival patient remains in respiratory stress on CPAP and was transitioned to BiPAP. She was given sublingual nitro, nitro drip was started, and given 40 mg Lasix IV. Patient with decreased respiratory distress on BiPAP. Chest x-ray consistent with CHF. Patient was also given morphine for her chronic hip pain. Patient being admitted for further evaluation and treatment. Hospitalist physician spoke to patient and patient's daughter, Jennifer Salazar and are in agreement that patient is DNR, DNI. Patient does want other treatments. Pt with history hospitalization in 05/2019 for flash pulmonary edema, acute decompensated heart failure, acute respiratory failure. During that admission cardiac cath was recommended, however patient declined and is not interested in any invasive procedures. Palliative care was consulted Echo: 04/2019: EF: 55% to 60%, moderately dilated left atrium, mild mitral regurgitation, mild tricuspid regurgitation, pulmonary artery systolic pressure was 60-70 mmHg, grade 2 diastolic dysfunction. Echo 05/2019: EF 55 to 60%, mild concentric LVH, no regional wall motion abnormalities noted. Principal Diagnosis Acute and chronic respiratory failure (Acute on chronic hypoxemic and hypercarbic respiratory failure) Acute on chronic diastolic (congestive) heart failure Hypertensive urgency /Hypertension Flash pulmonary edema: COPD (chronic obstructive pulmonary disease) Tobacco use disorder: Pulmonary hypertension: Suspect group 2 and group 3 CKD (chronic kidney disease), stage III Anemia Depression Discharge Exam Constitutional comfortable Eyes PERRL, conjunctivae normal, anicteric sclerae EOM intact bilaterally ENMT external ear and nose normal, oropharynx normal Neck trachea midline, no thyromegaly Respiratory normal respiratory effort, lungs clear to auscultation Cardiovascular Rate/Rhythm: regular rate Gastrointestinal (Abdomen) normal bowel sounds, soft, nontender, no hepatosplenomegaly Musculoskeletal Head/Neck/Chest: normocephalic Neurologic PERRL, EOMI, accommodation nl, no face palsy, no dysarthria Psychiatric Orientation: alert and cooperative Discharge Data Allergies Allergy/AdvReac Type Severity Reaction Status Date / Time ciprofloxacin Allergy Mild ITCHY Verified 08/01/19 07:48 azithromycin Allergy Unknown Unknown Verified 08/01/19 07:48 Nitrate Analogues Allergy Unknown UNSURE; Verified 08/01/19 07:48 BUT PATIENT TAKES NITROSTAT PER ADMIT MED REC. nitrofurantoin Allergy Unknown UNSURE Verified 08/01/19 07:48 pneumococcal vaccine Allergy Unknown unk Verified 08/01/19 07:48 Influenza Virus Vaccines AdvReac Mild HIVES ON Verified 08/01/19 07:48 THE SITE Consultations 08/01/19 07:55 ED Decision to Admit Stat 08/01/19 11:17 Consult Cardiology Routine Consult Case Management - Discharge Planning Routine Consult Technical Support Assistant Routine 08/01/19 16:11 Consult Palliative Care Routine 08/02/19 08:07 Consult Case Management - Discharge Planning Routine Hospital Course (1) Acute and chronic respiratory failure: Acute on chronic hypoxemic and hypercarbic respiratory failure (2) Acute on chronic diastolic (congestive) heart failure: (3) Hypertensive urgency: (4) Flash pulmonary edema: (5) COPD (chronic obstructive pulmonary disease): As per previous hospitalist Dr. Wolff "Chronic respiratory failure on 5L oxygen at baseline Pt is 74 y/o F with PMH COPD, chronic respiratory on 5 L oxygen, nonobstructive CAD on 2010 cath, CVA, chronic diastolic congestive heart failure, HTN, CKD III, tobacco use, iron deficiency anemia, sleep apnea presented to ER for shortness of breath. In ER pt was found to be in respiratory distress, hypertensive, hypoxic Initial vitals pt afebrile, P: 84, R: 32, BP: 204/156, 85% on RA. In ER started on BiPAP, given sublingual nitro, nitro drip was started, and given 40 mg Lasix IV. Patient with decreased respiratory distress on BiPAP. Chest x-ray consistent with CHF. No leukocytosis, Negative troponin - on admission ABG was ordered however pt refused Covid 19 PCR- negative During last hospitalization, echocardiogram was obtained, on June 18, it showed mild concentric LVH, no regional wall motion abnormalities noted. EF 55 to 60%. Right ventricle normal size and function. Mild MR, moderate TR. Pulmonary art lacie systolic pressure 49. Diastolic dysfunction grade 2. Pt with history hospitalization in 05/2019 for flash pulmonary edema, acute decompensated heart failure, acute respiratory failure. During that admission cardiac cath was recommended, however patient declined and is not interested in any invasive procedures. Palliative care was consulted. Patient was discharged home, with plan to transition to home hospice if her clinical status declines. She now presents with acute respiratory failure, and pt called EMS herself. Initially admitted to ICU, on BiPAP and IV nitro drip. She was however soon downgraded to PCU level of care. Technical Support Assistant/pulmonary consulted - Review of prior blood gases in her venous blood gas on this admission demonstrate likely chronic hypercarbic respiratory failure and the patient may benefit from nocturnal positive airway pressure. Trial of BiPAP nightly at 10/5 to see if she can tolerate it. Patient used Bi PAP overnight, and tolerated well. Can consider trying to get the patient set up with an outpatient AVAPS unit, also recommend outpatient follow-up in the pulmonary clinic (patient followed in [facility] pulmonary clinic in the past) Updated pulmonology recommendations: Due to chronic respiratory failure consequent to COPD, patient now requires a noninvasive home ventilator. Bilevel therapy with and without a rate would be ineffective as patient requires a volume targeted mode. Ventilation is required to decrease work of breathing and improve pulmonary status. Interruption of ventilator support would lead to decline of health status. NIMV settings should be AVAPS-AE; Breath rate: auto; Inspiratory time:auto; Sigh: off; PS min: 5; PS max 30; EPAP min: 5; EPAP max: 15; AVAPS rate: 1-5 During sleep and as needed Pulmonary hypertension: Suspect group 2 and group 3. No indication for v asodilators or additional invasive diagnostic testing. Likely severe obstructive lung disease: PFTs are not available. She is not overtly bronchospastic currently. We will continue as needed inhalers. Transition from Incruse to Anoro 1 puff daily. No indication for steroids or antibiotics from pulmonary standpoint. Hx of nonobstructive CAD, on beta-rasta, aspirin Plavix, statin Cardiology consulted - had a long discussion with the patient regarding importance of compliance with current medical therapies. Pt expressed desire to avoid further invasive medical procedures. Considering palliative care/hospice at this time. Blood pressure has normalized with improvement of respiratory status on IV nitro infusion. Her intravenous nitroglycerin infusion was then discontinued. Recommend addition of oral diuretic therapy, furosemide 20 mg daily. She may require reduction in frequency pending renal response to daily diuretic therapy." 08/06/2019 discharge plans (discharge medications sent electronically to [facility] [address], [place] of Furosemide 20 mg oral daily (patient should have follow up comprehensive metabolic panel on follow with primary care doctor) of Nicotine patch (patient advised to quit smoking and use nicoine patch as substitute) of Anoro Ellipta inhaler once daily which was used in the hospitalization (which is to replace home dose Incruse Ellipta) discharge with non-invasive mechanical ventilation (NIMV) therapy settings of the Trelegy machine should be AVAPS-AE; Breath rate: auto; Inspiratory time:auto; Sigh: off; PS min: 5; PS max 30; EPAP min: 5; EPAP max: 15; AVAPS rate: 1-5 During sleep and as needed follow up appointments 08/08/2019 11:00 AM Provider Sanjay Morris MD Department [facility] 08/14/2019 11:30 AM Provider [facility], [facility] 08/27/2019 11:00 AM Provider Nurse [facility] [place] Department Ancillary Department, [place]) (6) Hypertension: Hypertensive in ER, improved on nitro drip - continue home metoprolol. Blood pressure was high in the ED, she was started on nitro drip in the ER which was tapered off. She also received IV Lasix on admission -continue the cardiology service recommendation of daily Lasix 20 mg, adjust as needed as per outpatient labs by primary care doctor (7) Hypokalemia: resolved (8) CKD (chronic kidney disease), stage III: -Recent baseline Cr ~1.2 -last checked creatinine around 1.25 so this appears to be a stable number (9) Depression: - previously on citalopram. Due to prolonged QTc, and episode of VT, Celexa discontinued during last admission - continue current Zoloft 25 mg daily (10) Anemia: -Iron deficiency anemia (11) Tobacco use disorder: - cont. nicotine patch Code Status: DNR/DNI as per discussion with pt and pt's daughter Annmarie by previous hospitalist Total Time Total Time Spent Total Time Spent (In Minutes): 40 minutes Total Time Includes: Examination of the Patient, Discharge Planning, Medication Reconciliation and Communication With Other Providers Discharge Plan Discharge Items Patient Disposition: Home - Home Health Services Reason For Visit: RESPIRATORY FAILURE Discharge Diagnosis: Acute and chronic respiratory failure (Acute on chronic hypoxemic and hypercarbic respiratory failure) Acute on chronic diastolic (congestive) heart failure Hypertensive urgency /Hypertension Flash pulmonary edema: COPD (chronic obstructive pulmonary disease) Tobacco use disorder: Pulmonary hypertension: Suspect group 2 and group 3 CKD (chronic kidney disease), stage III Anemia Depression Condition on Discharge: Fair Activity: Per Instructions section Non-emergency contact: Primary Care Provider Call non-emergency contact if: you have any medication questions Follow-up/Referrals: Lena Quintanilla DO [Primary Care Provider] - 08/08/19 11:00 am (08/08/2019 11:00 AM Provider Sanjay Morris MD [facility] ) Diet: Heart Healthy and Low Sodium (2gm) Addtl Attending Provider Instructions: discharge medications sent electronically to [facility] [address], [place] of Furosemide 20 mg oral daily (patient should have follow up comprehensive metabolic panel on follow with primary care doctor) of Nicotine patch (patient advised to quit smoking and use nicoine patch as substitute) of Anoro Ellipta inhaler once daily which was used in the hospitalization (which is to replace home dose Incruse Ellipta) discharge with non-invasive mechanical ventilation (NIMV) therapy settings of the Trelegy machine should be AVAPS-AE; Breath rate: auto; Inspiratory time:auto; Sigh: off; PS min: 5; PS max 30; EPAP min: 5; EPAP max: 15; AVAPS rate: 1-5 During sleep and as needed follow up appointments 08/08/2019 11:00 AM Provider [facility] 08/14/2019 11:30 AM Provider [facility], [facility] 08/27/2019 11:00 AM Provider Nurse [facility] Ancillary Department, [facility] [employer] Provider Instructions: Call your Primary Care doctor if any of the following symptoms or problems start or get worse: * Shortness of breath or difficulty breathing * Wake up at night short of breath * Chest pain * Cough * Swelling of your hands, feet, or legs * More fatigued or tired with your normal activity * Palpitations - sudden fast heart beats WEIGHT * Weigh yourself every morning after using the bathroom. * Use the same scale. * Wear the same amount of clothing. * Write your weight down on a chart. * Call your Primary Care doctor if you gain more than 2-3 pounds in 1-2 days. MEDICATIONS * Use this discharge instruction sheet for medication instructions. * Take your medications at the time your doctor ordered. * Do not skip a dose of your medicines. * If you miss a dose of medicine, take it as soon as possible, but DO NOT DOUBLE A DOSE. * Read your medicine information when you get home. * Know all of the side effects of your medicine. If in doubt, ask your pharmacist * Call your Primary Care doctor's office if you have any side effects. * Be sure all of your doctors know what medicine and herbs you take (including cold, flu, and herbal medicine). Take the following with you to your follow-up doctor appointments: * Weight Chart * Medication List * List of questions Do not drink excessive alcohol, beer or wine. Pending Studies at Discharge: No Stand-Alone Forms: My [facility] [employer], Smoking Cessation Medications and DC Order Prescriptions: New nicotine 7 mg/24 hr Patch 24 Hour 7 mg transdermal QAM 30 Days Qty: 30 RF: 0 Anoro Ellipta 62.5-25 mcg/actuation Blister With Device 1 ea inhalation DAILY 30 Days Qty: 60 RF: 0 furosemide 20 mg Tablet 20 mg PO QAM 30 Days Qty: 30 RF: 0 Continued clopidogrel 75 mg tablet 75 mg PO QAM RF: 0 aspirin 81 mg Tablet,Delayed Release (Dr/Ec) 81 mg PO QAM RF: 0 nitroglycerin 0.4 mg tablet, sublingual 0.4 mg Sublingual DIRECTED PRN (Reason: Chest Pain) RF: 0 folic acid 1 mg Tablet 1 mg PO DAILY RF: 0 metoprolol succinate 25 mg tablet extended release 24 hr 12.5 mg PO QAM RF: 0 albuterol sulfate [Ventolin HFA] 90 mcg/actuation Hfa Aerosol Inhaler 2 puff INHALATION QID PRN (Reason: Shortness Of Breath Or Wheezing) RF: 0 fluticasone propionate 50 mcg/actuation [place],Suspension 2 spray INTRANASAL DAILY PRN (Reason: Nasal Congestion) RF: 0 gabapentin 300 mg capsule 300 mg PO TID RF: 0 sennosides-docusate sodium [Senokot-S] 8.6-50 mg tablet 1 tabcap PO DAILY PRN (Reason: constipation) Qty: 30 RF: 0 sertraline 25 mg tablet 25 mg PO DAILY RF: 0 mupirocin 2 % ointment 1 applic TOPICAL UD RF: 0 hydrocodone-acetaminophen 5-325 mg tablet 1 tab PO Q8H PRN (Reason: Pain) 5 Days Qty: 15 RF: 0 potassium chloride 20 mEq tablet,ER particles/crystals 20 meq PO QAM RF: 0 Discontinued Incruse Ellipta 62.5 mcg/actuation blister with device 1 inh INHALATION DAILY RF: 0 Discharge Orders: Discharge Order (Routine); Ordered 08/06/19 Ordered By: Delroy Gerardo Admission Data Admit Date/Time: 08/01/19 10:06 Attending Provider: Delroy Gerardo Admit Provider: Dano Wolff Primary Care Provider: Lena Quintanilla Other Providers: [place] ; Dano Wolff ; Angel Quintanilla Gregory ; Reema Gonsalves
== END 2019-08-06 17:58 | disposition home health service (06) | DRG 189 ==
LOC: ED 07:07 → SUATTDRO 10:06 → 1E 10:06 → 2S 08-02 09:42 → 2N 08-05 17:57

== ENCOUNTER 2019-09-12 21:26 | Inpatient (IN) ==
[2019-09-12 22:56] LABS: Basophils # (auto) 0.04 K/uL (0-0.2); Basophils % (auto) 0.6 %; Eosinophils # (auto) 0.29 K/uL (0-0.5); Eosinophils % (auto) 4.5 %; Hemoglobin 10.2 g/dL (12.0-16.0); Immature Granulocytes # (auto) 0.01 K/uL (0.00-0.02); Immature Granulocytes % (auto) 0.2 %; Lymphocytes # (auto) 1.07 K/uL (1.2-3.4); Lymphocytes % (auto) 16.7 %; Mean Corpuscular Hemoglobin 29.8 pg (25-34); Mean Corpuscular Hgb Conc 31.9 g/dL (32-36); Mean Corpuscular Volume 93.6 fL (80-100); Mean Platelet Volume 9.5 fL (7.4-10.4); Monocytes # (auto) 0.71 K/uL (0.11-0.59); Monocytes % (auto) 11.1 %; Neutrophils # (auto) 4.27 K/uL (1.4-6.5); Neutrophils % (auto) 66.9 %; Platelet Count 192 K/uL (130-400); RDW Coefficient of Variation 14.2 % (11.5-14.5); RDW Standard Deviation 48.2 fL (36.4-46.3); Red Blood Count 3.42 M/uL (4.2-5.4); White Blood Count 6.39 K/uL (4.8-10.8)
[2019-09-12 22:58] LABS: Appearance Urine Cloudy (Clear); Bacteria Urine Automated Negative (Negative); Bilirubin Urine Negative (Negative); Blood Urine Negative (Negative); Color Urine Dark Yellow; Glucose Urine UA Negative (Negative); Ketones Urine Trace (Negative); Leukocyte Esterase Urine 1+ (Negative); Nitrite Urine Negative (Negative); Protein Urine 3+ (Negative); RBC Urine Automated 0-4 /hpf (0-4); Specific Gravity Urine 1.024 (1.000-1.030); Urobilinogen Urine Negative (Negative); WBC Urine Automated >30 /hpf (0-5)
[2019-09-12 23:16] LABS: Albumin Level 2.8 gm/dl (3.4-5.0); BUN Creatinine Ratio 16.6 (10-20); Calcium 8.5 mg/dl (8.5-10.1); Creatinine Clr Calc Pharmacy 26.4 ml/min; Est GFR (African American) 40.1; Est GFR (Non-African American) 34.6; Magnesium 2.3 mg/dl (1.8-2.4); Potassium 3.4 mmol/L (3.5-5.1)
[2019-09-12 23:20] LABS: Albumin Globulin Ratio 0.6 (0.9-2); Bilirubin,Total 0.6 mg/dl (0.2-1); Globulin 4.4 gm/dl (2.5-4.0); Total Protein 7.2 gm/dl (6.4-8.2); Troponin I 0.031 ng/ml (0-0.045)
[2019-09-12] MEDS ORDERED: ACETAMINOPHEN 325 MG TAB PO PRN (23:37)
[2019-09-12] MEDS ORDERED: POTASSIUM CHLORIDE 20 MEQ TABCR PO STA (23:46)
--- NOTE | 2019-09-13 00:20 | Emergency Department Note ---
History of Present Illness General Chief complaint: Confusion Stated complaint: Confused Source: family, EMS and RN notes reviewed Mode of arrival: EMS Limitations: altered mental status History of Present Illness Provider complaint: Confusion, decreased responsiveness Maximum Pain Intensity: 0 This patient is a 74-year-old female who presents to the emergency department by ambulance with complaints of altered mentation by family. After several phone calls, I did speak with the patient's hospice nurse and her daughter. According to family, the patient is on hospice because of congestive heart failure and chronic respiratory failure. Hospice nurse agrees with this assessment and sta alberto she is on 5 L of nasal cannula oxygen [id number]. Apparently over the last several days to week. The patient has had a steady decline. Patient's daughter states she was toileting herself however now is unable to do so. She does have a caregiver, which also happens to be her granddaughter, but this care is not 18/09. Patient's daughter states she is not able to be at home by herself any longer. There is some concern that the patient may have changed her POA within the recent weeks however patient's daughter Emilee Barajas denies this claim. There have been no recent falls that the family is aware of. She has had no fever. She is a DNR/DNI. Home Medications Home Medications Medication Instructions Recorded Confirmed Type albuterol sulfate [Ventolin HFA] 2 puff INHALATION QID PRN 12/28/17 09/12/19 History aspirin 81 mg PO QAM 12/28/17 09/12/19 History clopidogrel 75 mg PO QAM 12/28/17 09/12/19 History fluticasone propionate 2 spray INTRANASAL DAILY PRN 12/28/17 09/12/19 History folic acid 1 mg PO DAILY 12/28/17 09/12/19 History metoprolol succinate 12.5 mg PO QAM 12/28/17 09/12/19 History nitroglycerin 0.4 mg SUBLINGUAL DIRECTED PRN 12/28/17 09/12/19 History gabapentin 300 mg PO TID 05/09/19 09/12/19 History sennosides-docusate sodium 1 tabcap PO DAILY PRN #30 tab 05/13/19 09/12/19 Rx [Senokot-S] potassium chloride 20 meq PO QAM 06/18/19 09/12/19 History sertraline 25 mg PO DAILY 08/01/19 09/12/19 History atorvastatin [Lipitor] 20 mg PO DAILY 09/12/19 09/12/19 History ferrous sulfate 325 mg PO BID 09/12/19 09/12/19 History furosemide [Lasix] 40 mg PO DAILY 09/12/19 09/12/19 History hydrocodone-acetaminophen 1 tab PO Q6 PRN 09/12/19 09/12/19 History ipratropium-albuterol 3 ml INHALATION Q6H PRN 09/12/19 09/12/19 History pantoprazole [Protonix] 40 mg PO DAILY 09/12/19 09/12/19 History umeclidinium-vilanterol [Anoro 1 ea INHALATION DAILY 09/12/19 09/12/19 History Ellipta] Allergies Allergy/AdvReac Type Severity Reaction Status Date / Time ciprofloxacin Allergy Mild ITCHY Verified 09/12/19 22:43 azithromycin Allergy Unknown Unknown Verified 09/12/19 22:43 Nitrate Analogues Allergy Unknown UNSURE; Verified 09/12/19 22:43 BUT PATIENT TAKES NITROSTAT PER ADMIT MED REC. nitrofurantoin Allergy Unknown UNSURE Verified 09/12/19 22:43 pneumococcal vaccine Allergy Unknown unk Verified 09/12/19 22:43 Influenza Virus Vaccines AdvReac Mild HIVES ON Verified 09/12/19 22:43 THE SITE Past Med/Surg History Medical History Avascular necrosis (Chronic) CAD (coronary artery disease) (Chronic) Cardiac cath 2010-nonobstructive disease Carotid stenosis (Chronic) Chronic hip pain Chronic respiratory failure with hypoxia (Chronic) CKD (chronic kidney disease), stage III COPD (chronic obstructive pulmonary disease) (Chronic) CVA (cerebral vascular accident) (Chronic) Depression (Chronic) Diastolic CHF (Chronic) Dyslipidemia (Chronic) Hip pain, right (Chronic) HTN (hypertension) (Acute) Hypertension (Chronic) DAYNA (iron deficiency anemia) (Chronic) IPMN (intraductal papillary mucinous neoplasm) (Chronic) Lumbar back pain (Chronic) PAD (peripheral artery disease) (Chronic) S/P stenting of the right distal common and right external iliac arteries Pancreatic duct stricture (Chronic) S/P stent Pulmonary hypertension Recurrent pancreatitis (Chronic) Sleep apnea (Chronic) Tobacco use disorder (Chronic) Surgical History H/O ventral hernia repair (Chronic) History of appendectomy (Chronic) History of cholecystectomy (Chronic) History of hysterectomy (Chronic) Family History Mother Stroke Father Stroke Social History Preferred Language: Lao Communication Ability: Effective Visual Impairment: No Limitations Grievance Manager Required: No Beliefs That Will Affect Care: None marital status: / Current Living Situation: Alone Current Living Situation Comment: Caregivers 9a-5p daily x 40hrs/wk Feels Safe at Home: Yes Smoking Status: Former smoker Tobacco Type: cigarettes ; Cigarettes Per Day: 20 ; Second Hand Exposure: No ; Hx Alcohol Use: Yes Alcohol type: wine Hx Substance Use: Yes substance use type: painkillers Review of Systems See HPI for pertinent positives & negatives. and A total of 10 systems reviewed and were otherwise negative Physical Exam Vital Signs Vital Signs - 24 hr 09/12/19 21:31 09/12/19 21:33 09/12/19 21:40 Temperature 37.2 C Temperature Source Oral Pulse Rate 81 78 80 Pulse Rate from SpO2 Sensor 73 Respiratory Rate 14 16 16 Respiratory Effort / Characteristics Non-Labored Spontaneous Respiratory Depth Normal Respiratory Pattern Regular Blood Pressure 166/71 H 166/71 H Blood Pressure Mean 93 102 Pulse Oximetry 97 Oxygen Delivery Method Room Air Oxygen Flow Rate Sepsis Recent Fever Within 48 Hours No Sepsis New/Unexplained Change in Mental Status N/A Sepsis Action Taken by Nursing No Action Required 09/12/19 21:50 09/12/19 22:00 09/12/19 22:10 Temperature Temperature Source Pulse Rate 70 68 66 Pulse Rate from SpO2 Sensor 70 66 Respiratory Rate 14 17 12 Respiratory Effort / Characteristics Respiratory Depth Respiratory Pattern Blood Pressure 126/59 L Blood Pressure Mean 81 Pulse Oximetry 96 Oxygen Delivery Method Oxygen Flow Rate Sepsis Recent Fever Within 48 Hours Sepsis New/Unexplained Change in Mental Status Sepsis Action Taken by Nursing 09/12/19 22:20 09/12/19 22:27 09/12/19 22:30 Temperature Temperature Source Pulse Rate 72 68 Pulse Rate from SpO2 Sensor 68 Respiratory Rate 15 19 Respiratory Effort / Characteristics Respiratory Depth Respiratory Pattern Blood Pressure 117/56 L Blood Pressure Mean 71 Pulse Oximetry 97 96 Oxygen Delivery Method Nasal Cannula Oxygen Flow Rate 3 Sepsis Recent Fever Within 48 Hours Sepsis New/Unexplained Change in Mental Status Sepsis Action Taken by Nursing 09/12/19 22:40 09/12/19 23:00 09/12/19 23:30 Temperature Temperature Source Pulse Rate 72 67 68 Pulse Rate from SpO2 Sensor 72 67 Respiratory Rate 12 10 L 15 Respiratory Effort / Characteristics Respiratory Depth Respiratory Pattern Blood Pressure 111/66 112/61 Blood Pressure Mean 83 79 Pulse Oximetry 99 99 Oxygen Delivery Method Oxygen Flow Rate Sepsis Recent Fever Within 48 Hours Sepsis New/Unexplained Change in Mental Status Sepsis Action Taken by Nursing 09/13/19 00:00 09/13/19 00:30 09/13/19 01:00 Temperature Temperature Source Pulse Rate 69 85 71 Pulse Rate from SpO2 Sensor Respiratory Rate 16 15 16 Respiratory Effort / Characteristics Respiratory Depth Respiratory Pattern Blood Pressure 100/60 112/64 125/67 Blood Pressure Mean 66 83 80 Pulse Oximetry 95 Oxygen Delivery Method Oxygen Flow Rate Sepsis Recent Fever Within 48 Hours Sepsis New/Unexplained Change in Mental Status Sepsis Action Taken by Nursing Vital signs reviewed. General: Chronically ill-appearing, thin and cachectic 74-year-old female, somno lent. HEENT: No scleral icterus, PERRLA, neck supple. Atraumatic. Cardiovascular: Systolic ejection murmur, otherwise regular rate and rhythm. Pulmonary: Clear to auscultation bilaterally, normal work of breathing. Abdomen: Soft, nontender, nondistended, positive bowel sounds. Musculoskeletal: Atraumatic, no peripheral edema. Neurologic: Patient somnolent but arousable. Unable to answer questions appropriately. Skin: Warm, dry, no rash Course Administered Medications Discontinued Medications Potassium Chloride (Klor-Con M20) 40 meq PO NOW STA Stop: 09/12/19 23:47 Last Admin: 09/13/19 01:38 Dose: 40 meq Documented by: [id number] Medical Decision Making Differential Diagnosis Differential includes acute coronary syndrome, myocardial infarction, CVA, TIA, anemia, infection, pneumonia, UTI, pyelonephritis, poor nutrition, dehydration, electrolyte disturbance,hypoglycemia. Medical Records Attestation: I reviewed the patient's medical records. Home Medications Current Medication List: was personally reviewed by me Laboratory Data Attestation: I reviewed the patient's lab results. Result diagrams: 09/12/19 22:30 09/12/19 22:30 Lab Results 09/12/19 09/12/19 09/12/19 Range/Units 22:30 22:30 22:40 WBC 6.39 (4.8-10.8) K/uL RBC 3.42 L (4.2-5.4) M/uL Hgb 10.2 L (12.0-16.0) g/dL Hct 32.0 L (37-47) % MCV 93.6 (80-100) fL MCH 29.8 (25-34) pg MCHC 31.9 L (32-36) g/dL RDW Std Deviation 48.2 H (36.4-46.3) fL RDW Coeff of Sriram 14.2 (11.5-14.5) % Plt Count 192 (130-400) K/uL MPV 9.5 (7.4-10.4) fL Immature Gran % (Auto) 0.2 % Neut % (Auto) 66.9 % Lymph % (Auto) 16.7 % [place] % (Auto) 11.1 % Eos % (Auto) 4.5 % Baso % (Auto) 0.6 % Neut # (Auto) 4.27 (1.4-6.5) K/uL Lymph # (Auto) 1.07 L (1.2-3.4) K/uL [place] # (Auto) 0.71 H (0.11-0.59) K/uL Eos # (Auto) 0.29 (0-0.5) K/uL Baso # (Auto) 0.04 (0-0.2) K/uL Immature Gran # (Auto) 0.01 (0.00-0.02) K/uL Sodium 138 (136-145) mmol/L Potassium 3.4 L (3.5-5.1) mmol/L Chloride 104 (98-107) mmol/L Carbon Dioxide 29 (21-32) mmol/L Anion Gap 5.0 (3-11) BUN 24 H (7-18) mg/dl Creatinine 1.46 H (0.6-1.2) mg/dl Est Cr Clr Drug Dosing 26.4 ml/min Est GFR ( Amer) 40.1 Est GFR (Non-Af Amer) 34.6 BUN/Creatinine Ratio 16.6 (10-20) Glucose 97 (70-99) mg/dl Calcium 8.5 (8.5-10.1) mg/dl Magnesium 2.3 (1.8-2.4) mg/dl Total Bilirubin 0.6 (0.2-1) mg/dl AST 12 L (15-37) U/L ALT 9 L (12-78) U/L Alkaline Phosphatase 97 (45-117) U/L Troponin I 0.031 (0-0.045) ng/ml Total Protein 7.2 (6.4-8.2) gm/dl Albumin 2.8 L (3.4-5.0) gm/dl Globulin 4.4 H (2.5-4.0) gm/dl Albumin/Globulin Ratio 0.6 L (0.9-2) Urine Color Dark Yellow Urine Appearance Cloudy A (Clear) Urine pH 5.0 (4.5-7.5) Ur Specific [place] 1.024 (1.000-1.030) Urine Protein 3+ H (Negative) Urine Glucose (UA) Negative (Negative) Urine Ketones Trace H (Negative) Urine Blood Negative (Negative) Urine Nitrite Negative (Negative) Urine Bilirubin Negative (Negative) Urine Urobilinogen Negative (Negative) Ur Leukocyte Esterase 1+ H (Negative) Urine WBC (Auto) >30 H (0-5) /hpf Urine RBC (Auto) 0-4 (0-4) /hpf U Hyaline Cast (Auto) 1-5 (0-5) /lpf U Epithel Cells (Auto) 10-20 H (0-5) /lpf Urine Bacteria (Auto) Negative (Negative) Imaging Data Attestation: I personally reviewed and interpreted this imaging study as follows: My Impression: Chest x-ray to my interpretation reveals chronic interstitial change, cardiomegaly and mild fluid overload. ECG Data Attestation: I personally reviewed and interpreted this ECG as follows: Indication: + weakness Rate (beats per minute): 69 Rhythm: + normal sinus ECG Intervals/blocks: + Prolonged QT (467) ECG [place]: + Normal ECG ST segments: + T-wave inversions (Lateral) ECG Findings: + Other (T wave inversions laterally) Blood Pressure Blood Pressure Findings: Normal blood pressure Blood Pressure Disposition: did not require urgent referral MDM Narrative This patient was evaluated and appeared to be in no significant distress. Patient is somnolent and somewhat obtunded. An order for cardiac monitoring was placed and the patient was found to be in a sinus rhythm at 78 bpm. Chest x-ray was performed and reveals cardiomegaly, interstitial change and mild fluid overload. I did speak with the hospice nurse and the patient's daughter. At this point it is 10 PM on a Sunday night and the patient's daughter stating she is unable to be at home by herself, which I would agree with. Apparently there are no family members available to take care of the patient. They are requesting placement. The patient's case was discussed with the hospitalist, Dr. Shukla who will evaluate the patient for further management. Impression & Plan Mental status, decreased, Respiratory failure, chronic Discharge Plan Visit Data *Final* Discharge Date/Time: 09/13/19 01:47 Chief Complaint: Confusion Stated Complaint: Confused ED Provider: Latoya Bobby Discharge Problem: Mental status, decreased, Respiratory failure, chronic Patient Disposition: Admitted As Inpatient Discharge Instructions Interventions: ED Discharge Assessment Last Done: 09/13/19 01:47 Discharge Problem: Respiratory failure, chronic Qualifiers: Respiratory failure complication: hypoxia and hypercapnia Qualified Code(s): J96.11 - Chronic respiratory failure with hypoxia
--- NOTE | 2019-09-13 01:02 | History & Physical Report ---
Date of Service September 13, 2019 Assessment & Plan (1) Encephalopathy: Encephalopathy Multifactorial : progressive decline/deconditioning in a homehospice patient Poor p.o. intake, ARF on CKD Possible hypercapnic respiratory failure, hx chronic respiratory failure secondary to COPD/pulmonary hypertension on home O2 Possible UTI Home medications (neuropsychotropic/narcotic meds) chronic diastolic heart failure (EF 55 to 60%, TTE 2019) Patient clinically dry HTN, currently stable hx CAD/CVA/PVD as per records chronic anemia, hemoglobin better than baseline Hypokalemia secondary to poor p.o. intake Past tobacco abuse GMF Comfort measures as per daughter request. Patient family not interested in additional testing/interventions other than medications for patient's comfort. Social service RE discharge planning (Patient family do not feel home hospice to be safe option for patient with her remaining time.) DVT prophylaxis. Not indicated with comfort measures DNR Patient's daughter requesting updates from providers. Ms. Cynthia Lopez, contact #[phone]. History of Present Illness Chief Complaint: Daughter told me to come as per patient Confusion as per daughter Primary Care Provider: Lena Quintanilla, History obtained from patient, family, and records. Limited history from patient secondary to obtunded state. Medical history significant for chronic diastolic heart failure (EF 55 to 60%, TTE 2019), chronic respiratory failure secondary to COPD/pulmonary hypertension on home O2, past tobacco abuse, HTN, hx CAD/PVD/CVA as per records, chronic anemia (baseline hemoglobin 8-9), history of ESBL E. coli as per records, history of chronic pancreatitis as per records, chronic hip pain secondary to avascular necrosis on narcotics. Last confinement July 2019 respiratory failure secondary to decompensated CHF. Found to have hypercapnic respiratory failure, respiratory acidosis from COPD. BiPAP trial during confinement. Palliative care consulted after patient expressed desire to avoid further invasive medical procedures. CODE STATUS de-escalated to DNR. Possible transition to home hospice on discharge as per palliative care note. Patient discharged on diuretic medications and BiPAP machine recommendations. Home hospice enrollment shortly after hospital discharge. Patient stopped taking cardiac medications a few weeks ago as per daughter. Would not wear a mask. Patient not eating as much as per caregiver. Increasing confusion noted by family this week. Family worried about patient safety at home being alone for some hours from time to time. Family requested for patient to be brought to ER for possible placement. Patient denies chest pain, S OB, cough, headache, abdominal pain, diarrhea, dysuria symptoms. MEDICAL HISTORY: SURGERIES: Appendectomy, hysterectomy, cholecystectomy, hernia repair, cystoscopy FAMILY HISTORY: Lung cancer and heart disease. PERSONAL AND SOCIAL HISTORY: Past tobacco abuse. No chronic intake of alcoholic beverages. 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 Allergies Allergy/AdvReac Type Severity Reaction Status Date / Time ciprofloxacin Allergy Mild ITCHY Verified 09/12/19 22:43 azithromycin Allergy Unknown Unknown Verified 09/12/19 22:43 Nitrate Analogues Allergy Unknown UNSURE; Verified 09/12/19 22:43 BUT PATIENT TAKES NITROSTAT PER ADMIT MED REC. nitrofurantoin Allergy Unknown UNSURE Verified 09/12/19 22:43 pneumococcal vaccine Allergy Unknown unk Verified 09/12/19 22:43 Influenza Virus Vaccines AdvReac Mild HIVES ON Verified 09/12/19 22:43 THE SITE Home Medications Home Medications Medication Instructions Recorded Confirmed Type albuterol sulfate [Ventolin HFA] 2 puff INHALATION QID PRN 12/28/17 09/12/19 History aspirin 81 mg PO QAM 12/28/17 09/12/19 History clopidogrel 75 mg PO QAM 12/28/17 09/12/19 History fluticasone propionate 2 spray INTRANASAL DAILY PRN 12/28/17 09/12/19 History folic acid 1 mg PO DAILY 12/28/17 09/12/19 History metoprolol succinate 12.5 mg PO QAM 12/28/17 09/12/19 History nitroglycerin 0.4 mg SUBLINGUAL DIRECTED PRN 12/28/17 09/12/19 History gabapentin 300 mg PO TID 05/09/19 09/12/19 History sennosides-docusate sodium 1 tabcap PO DAILY PRN #30 tab 05/13/19 09/12/19 Rx [Senokot-S] potassium chloride 20 meq PO QAM 06/18/19 09/12/19 History sertraline 25 mg PO DAILY 08/01/19 09/12/19 History atorvastatin [Lipitor] 20 mg PO DAILY 09/12/19 09/12/19 History ferrous sulfate 325 mg PO BID 09/12/19 09/12/19 History furosemide [Lasix] 40 mg PO DAILY 09/12/19 09/12/19 History hydrocodone-acetaminophen 1 tab PO Q6 PRN 09/12/19 09/12/19 History ipratropium-albuterol 3 ml INHALATION Q6H PRN 09/12/19 09/12/19 History pantoprazole [Protonix] 40 mg PO DAILY 09/12/19 09/12/19 History umeclidinium-vilanterol [Anoro 1 ea INHALATION DAILY 09/12/19 09/12/19 History Ellipta] Past Med/Surg History Medical History Avascular necrosis (Chronic) CAD (coronary artery disease) (Chronic) Cardiac cath 2010-nonobstructive disease Carotid stenosis (Chronic) Chronic hip pain Chronic respiratory failure with hypoxia (Chronic) CKD (chronic kidney disease), stage III COPD (chronic obstructive pulmonary disease) (Chronic) CVA (cerebral vascular accident) (Chronic) Depression (Chronic) Diastolic CHF (Chronic) Dyslipidemia (Chronic) Hip pain, right (Chronic) HTN (hypertension) (Acute) Hypertension (Chronic) DAYNA (iron deficiency anemia) (Chronic) IPMN (intraductal papillary mucinous neoplasm) (Chronic) Lumbar back pain (Chronic) PAD (peripheral artery disease) (Chronic) S/P stenting of the right distal common and right external iliac arteries Pancreatic duct stricture (Chronic) S/P stent Pulmonary hypertension Recurrent pancreatitis (Chronic) Sleep apnea (Chronic) Tobacco use disorder (Chronic) Surgical History H/O ventral hernia repair (Chronic) History of appendectomy (Chronic) History of cholecystectomy (Chronic) History of hysterectomy (Chronic) Family History Mother Stroke Father Stroke Social History Preferred Language: Urdu Communication Ability: Effective Visual Impairment: No Limitations Firebreak Cutter Required: No Beliefs That Will Affect Care: None marital status: / Current Living Situation: Alone Current Living Situation Comment: Caregivers 9a-5p daily x 40hrs/wk Feels Safe at Home: Yes Smoking Status: Unknown if ever smoked Review of Systems Review of Systems: Could not be reliably obtained Physical Exam Physical Exam: GENERAL: Obtunded, no respiratory distress SKIN: Pallor , warm HEENT: Pale palpebral conjunctivae, no ptosis, dry buccal mucosa, nasal cannula in place NECK : Supple, no tenderness CHEST : Decreased breath sounds, no tenderness HEART : RRR, no obvious murmurs ABDOMEN: Soft, nontender EXTREMITIES : Chronic right hip tenderness, no LE swelling, no other conspicuous deformities noted NEUROLOGIC : Coherent, obtunded, no facial asymmetry, no other gross focality Results & Data Results & Data ([facility]) Vital Signs (Past 12 Hours) Vital Signs Temp Pulse Resp BP Pulse Ox 09/13/19 00:00 69 16 100/60 95 09/12/19 23:30 68 15 112/61 09/12/19 23:00 67 10 L 111/66 99 09/12/19 22:40 72 12 99 09/12/19 22:30 68 19 117/56 L 96 09/12/19 22:27 97 09/12/19 22:20 72 15 09/12/19 22:10 66 12 09/12/19 22:00 68 17 126/59 L 09/12/19 21:50 70 14 96 09/12/19 21:40 37.2 C 80 16 166/71 H 97 09/12/19 21:33 78 16 09/12/19 21:31 81 14 166/71 H Laboratory Results Laboratory Results WBC 6.39 K/uL (4.8-10.8) 09/12/19 22:30 RBC 3.42 M/uL (4.2-5.4) L 09/12/19 22:30 Hgb 10.2 g/dL (12.0-16.0) L 09/12/19 22:30 Hct 32.0 % (37-47) L 09/12/19 22:30 MCV 93.6 fL (80-100) 09/12/19 22:30 MCH 29.8 pg (25-34) 09/12/19 22:30 MCHC 31.9 g/dL (32-36) L 09/12/19 22:30 RDW Std Deviation 48.2 fL (36.4-46.3) H 09/12/19 22:30 RDW Coeff of Sriram 14.2 % (11.5-14.5) 09/12/19 22:30 Plt Count 192 K/uL (130-400) 09/12/19 22:30 MPV 9.5 fL (7.4-10.4) 09/12/19 22:30 Immature Gran % (Auto) 0.2 % 09/12/19 22:30 Neut % (Auto) 66.9 % 09/12/19 22:30 Lymph % (Auto) 16.7 % 09/12/19 22:30 [place] % (Auto) 11.1 % 09/12/19 22:30 Eos % (Auto) 4.5 % 09/12/19 22:30 Baso % (Auto) 0.6 % 09/12/19 22:30 Neut # (Auto) 4.27 K/uL (1.4-6.5) 09/12/19 22:30 Lymph # (Auto) 1.07 K/uL (1.2-3.4) L 09/12/19 22:30 [place] # (Auto) 0.71 K/uL (0.11-0.59) H 09/12/19 22:30 Eos # (Auto) 0.29 K/uL (0-0.5) 09/12/19 22:30 Baso # (Auto) 0.04 K/uL (0-0.2) 09/12/19 22:30 Immature Gran # (Auto) 0.01 K/uL (0.00-0.02) 09/12/19 22:30 Sodium 138 mmol/L (136-145) 09/12/19 22:30 Potassium 3.4 mmol/L (3.5-5.1) L 09/12/19 22:30 Chloride 104 mmol/L (98-107) 09/12/19 22:30 Carbon Dioxide 29 mmol/L (21-32) 09/12/19 22:30 Anion Gap 5.0 (3-11) 09/12/19 22:30 BUN 24 mg/dl (7-18) H 09/12/19 22:30 Creatinine 1.46 mg/dl (0.6-1.2) H 09/12/19 22:30 Est Cr Clr Drug Dosing 26.4 ml/min 09/12/19 22:30 Est GFR ( Amer) 40.1 09/12/19 22:30 Est GFR (Non-Af Amer) 34.6 09/12/19 22:30 BUN/Creatinine Ratio 16.6 (10-20) 09/12/19 22:30 Glucose 97 mg/dl (70-99) 09/12/19 22:30 Calcium 8.5 mg/dl (8.5-10.1) 09/12/19 22:30 Magnesium 2.3 mg/dl (1.8-2.4) 09/12/19 22:30 Total Bilirubin 0.6 mg/dl (0.2-1) 09/12/19 22:30 AST 12 U/L (15-37) L 09/12/19 22:30 ALT 9 U/L (12-78) L 09/12/19 22:30 Alkaline Phosphatase 97 U/L (45-117) 09/12/19 22:30 Troponin I 0.031 ng/ml (0-0.045) 09/12/19 22:30 Total Protein 7.2 gm/dl (6.4-8.2) 09/12/19 22:30 Albumin 2.8 gm/dl (3.4-5.0) L 09/12/19 22:30 Globulin 4.4 gm/dl (2.5-4.0) H 09/12/19 22:30 Albumin/Globulin Ratio 0.6 (0.9-2) L 09/12/19 22:30 Urine Color Dark Yellow 09/12/19 22:40 Urine Appearance Cloudy (Clear) A 09/12/19 22:40 Urine pH 5.0 (4.5-7.5) 09/12/19 22:40 Ur Specific [place] 1.024 (1.000-1.030) 09/12/19 22:40 Urine Protein 3+ (Negative) H 09/12/19 22:40 Urine Glucose (UA) Negative (Negative) 09/12/19 22:40 Urine Ketones Trace (Negative) H 09/12/19 22:40 Urine Blood Negative (Negative) 09/12/19 22:40 Urine Nitrite Negative (Negative) 09/12/19 22:40 Urine Bilirubin Negative (Negative) 09/12/19 22:40 Urine Urobilinogen Negative (Negative) 09/12/19 22:40 Ur Leukocyte Esterase 1+ (Negative) H 09/12/19 22:40 Urine WBC (Auto) >30 /hpf (0-5) H 09/12/19 22:40 Urine RBC (Auto) 0-4 /hpf (0-4) 09/12/19 22:40 U Hyaline Cast (Auto) 1-5 /lpf (0-5) 09/12/19 22:40 U Epithel Cells (Auto) 10-20 /lpf (0-5) H 09/12/19 22:40 Urine Bacteria (Auto) Negative (Negative) 09/12/19 22:40 Diagnostic Findings Chest x-ray as per my interpretation congestion, cardiomegaly EKG as per my interpretation : Rate 70, NSR, normal axis, diffuse T wave abnormalities over limb leads and lateral leads
[2019-09-13] MEDS ORDERED: MoRPHine SULFATE 2 MG/ML CARP IV PRN (02:23)
[2019-09-13] MEDS ORDERED: ONDANSETRON INJ 2 MG/ML 2 ML VIAL IV PRN (02:23)
[2019-09-13] MEDS ORDERED: ATROPINE SULFATE 1% OP SOLN 2 ML BTL SL PRN (02:23)
--- NOTE | 2019-09-13 09:04 | XRay Report ---
XR chest 1V portable CLINICAL HISTORY: weakness COMPARISON STUDY: Chest radiograph August 02, 2019. FINDINGS: There is no pneumothorax. There is a trace left pleural effusion. Calcified mediastinal lym ph nodes are noted. There is moderate cardiomegaly. Pulmonary edema is present. There is mild left ba silar opacity. There is no pneumothorax. IMPRESSION: 1. Interstitial pulmonary edema. 2. Small left pleural effusion with mild left basilar opacity. ACT 112: Negative or not required by law. Electronically signed by: Jonathan Kim M.D. 09/13/2019 9:03 AM
--- NOTE | 2019-09-13 18:51 | Hospitalist Progress Note ---
Date of Service September 13, 2019 Assessment & Plan Admission and Anticipated Discharge Date Admission Date: September 13, 2019 Subjective Patient seen in room 278. She sitting up in bed, comfortable, in no acute distress. She is answering most questions appropriately, however very slowly. She currently has no complaints. Later today however patient developed fever. Contacted her daughter Emilee to clarify if she would want to try any work-up or treatment, as patient may have possibly pneumonia, there is small opacity noted on chest x-ray. Daughter Emilee clarified that they wish for no treatment, no IVs, and only comfort care measures. Will discuss with nursing staff, to stop checking vital signs, and only keep patient comfortable. Emilee is planning to come visit patient tomorrow, and also discuss with case management possible placement. Garrick Wolff MD Results & Data Results & Data ([facility]) Vital Signs (Past 12 Hours) Vital Signs Temp Pulse Resp BP Pulse Ox 09/13/19 15:10 38.3 C H 76 18 167/66 H 93
--- NOTE | 2019-09-14 07:46 | Electrocardiogram Report ---
Test Reason : Blood Pressure : / mmHG Vent. Rate : 069 BPM Atrial Rate : 069 BPM P-R Int : 178 ms QRS Dur : 086 ms QT Int : 436 ms P-R-T Axes : 062 034 161 degrees QTc Int : 467 ms Normal sinus rhythm Abnormal ECG When compared with ECG of 01-AUG-2019 07:15, Vent. rate has decreased BY [address] no longer depressed in Lateral leads Confirmed by Julio Adhikari ([id number]) on 09/14/2019 7:46:21 AM Referred By: REFERRED SELF Confirmed By:Julio Adhikari
--- NOTE | 2019-09-14 14:46 | Hospitalist Progress Note ---
Date of Service September 14, 2019 Assessment & Plan (1) Encephalopathy: Encephalopathy Multifactorial : progressive decline/deconditioning in a homehospice patient Poor p.o. intake, ARF on CKD Possible hypercapnic respiratory failure, hx chronic respiratory failure secondary to COPD/pulmonary hypertension on home O2 Possible UTI Home medications (neuropsychotropic/narcotic meds) Pt had a reported fever yesterday PM, and there was also small opacity found on CXR. I contacted Emilee yesterday to see if she wanted any treatment in case of possible infection. Pt's daughter states that she does not want any more treatment and wants to make sure pt does not have any IVs. This was extensively discussed within pt's family already and so she wants to make sure all providers are aware of that. chronic diastolic heart failure (EF 55 to 60%, TTE 2019) Patient clinically dry HTN, currently stable hx CAD/CVA/PVD as per records chronic anemia, hemoglobin better than baseline Hypokalemia secondary to poor p.o. intake Past tobacco abuse Comfort measures as per daughter request. Patient family not interested in additional testing/interventions other than medications for patient's comfort. Social service RE discharge planning (Patient family do not feel home hospice to be safe option for patient with her remaining time.) DVT prophylaxis. Not indicated with comfort measures DNR Patient's daughter, Ms. Cynthia Lopez, can be contacted at . Other daughter Nely is currently a pt in the hospital, pls do not contact. Admission and Anticipated Discharge Date Admission Date: September 13, 2019 Subjective Pt is sitting up in bed, in NAD, on AL. Her son-in- law is visiting at the bedside. Pt is comfortable, awake, speaks to me, son-in-law and also on the phone. Answers most questions appropriately. Currently has no complaints. Review of Systems Review of Systems: All systems reviewed & are unremarkable except as noted in HPI & below Physical Exam Physical Exam: GENERAL: Pt is sitting up in bed, in NAD, no respiratory distress HEENT: Pale palpebral conjunctivae, no ptosis, nasal cannula in place NECK : Supple, no tenderness CHEST : Decreased breath sounds, no tenderness HEART : RRR, no obvious murmurs ABDOMEN: Soft, nontender, nondistended EXTREMITIES : Chronic right hip tenderness, no LE swelling, no other conspicuous deformities noted SKIN: Pallor , warm NEUROLOGIC : Awake, answers most questions appropriately, no facial asymmetry, speech fluent, moves extremities spontaneously
[2019-09-14] MEDS: TRAMADOL HCL 50 MG TABLET PO PRN (22:02)
--- NOTE | 2019-09-15 17:29 | Palliative Care Consultation ---
Date of Consultation September 15, 2019 Assessment & Plan (1) Goals of care, counseling/discussion: Patient is a 74 year old female patient known to our service from her admission in May as well as July. After her July admission, patient was discharged home with home health and a trilogy to use at night and during naps. Patient reports she stopped using it-stated she tried 3 different masks and had difficulty with fit. Patient has only O2 at home, no BiPAP or CPAP. - PMH significant for COPD with chronic respiratory failure on 3-4 liters oxygen, nonobstructive CAD - s/p catheterization in 2010, PAD, CVA, chronic diastolic CHF, HTN, CKD stage III, tobacco use, and protein-calorie mal nutrition. -Spoke with patient's daughter, Milagro, by phone. She reports her mother is often noncompliant with her oxygen, she spells does not go above 4 L but sometimes turns it up to 5 L. She has had multiple episodes of confusion where she has been sitting outside in the rain, telling her sister she is at a flea market, etc. Patient's granddaughter is a paid caregiver from 8 to 5 PM, daught er or sometimes patient sister can check on her in the evening. When daughter went to check on her on the evening of 09/11 she found her mother unresponsive. Daughter called EMS and she was brought to the emergency room. Family reports that patient is not safe to live alone at home, she requires [id number] caregivers. -Patient admitted for altered mental status likely due to hypercapnia -she is on comfort care only per patient and family wishes. Patient on comfort meds only and O2 -Patient seen and examined in room 351 this afternoon. Patient is awake, alert and oriented. She has poor insight regarding her care needs. -Patient was on hospice care with [facility]. She had been discharged home [facility]-patient did report she found hospice helpful and stated her goal is to return home under hospice care. -Collaborated with case management regarding family's concerns regarding being home with limited caregivers-they will contact family to determine if she qualifies for increased hours or if she is receiving waiver services. Family feels she needs placement where she can receive 24-hour care. -Daughter works full-time and is not able to be with the patient overnight. -Patient's CODE STATUS is DNR (2) Acute on chronic respiratory failure with hypoxia and hypercapnia: Improved with O2 compliance (3) Altered mental status: Improved-patient alert and oriented x3, very sensitive to hypercapnia and gets confused very easily Altered mental status type: unspecified Qualified Code(s): R41.82 - Altered mental status, unspecified (4) Diastolic CHF: Well-controlled, no lower extremity edema on exam Heart failure chronicity: acute on chronic Qualified Code(s): I50.33 - Acute on chronic diastolic (congestive) heart failure History of Present Illness Reason for Consultation: Address goals of care, coordinate care plan with family Requesting Physician: Attending Physician: Dano Wolff MD History of Present Illness - Patient is a 74 year old female patient known to our service from her admission in May as well as July. After her July admission, patient was discharged home with home health and a trilogy to use at night and during naps. Patient reports she stopped using it-stated she tried 3 different masks and had difficulty with fit. Patient has only O2 at home, no BiPAP or CPAP. - PMH significant for COPD with chronic respiratory failure on 3-4 liters oxygen, nonobstructive CAD - s/p catheterization in 2010, PAD, CVA, chronic diastolic CHF, HTN, CKD stage III, tobacco use, and protein-calorie malnutrition. -Spoke with patient's daughter, Milagro, by phone. She reports her mother is often noncompliant with her oxygen, she spells does not go above 4 L but sometimes turns it up to 5 L. She has had multiple episodes of confusion where she has been sitting outside in the rain, telling her sister she is at a [employer] market, etc. Patient's granddaughter is a paid caregiver from 8 to 5 PM, daughter or sometimes patient sister can check on her in the evening. When daughter went to check on her on the evening of 09/11 she found her mother unresponsive. Daughter called EMS and she was brought to the emergency room. Family reports that patient is not safe to live alone at home, she requires [id number] caregivers. -Patient admitted for altered mental status likely due to hypercapnia -Patient seen and examined in room 351 this afternoon. Patient is awake, alert and oriented. She has poor insight regarding her care needs. -Patient was on hospice care with [facility]. She had been discharged home [facility]-patient did report she found hospice helpful and stated her goal is to return home under hospice care. -Collaborated with case management regarding family's concerns regarding being home with limited caregivers-they will contact family to determine if she qualifies for increased hours or if she is receiving waiver services. Family feels she needs placement where she can receive 24-hour care. -Daughter works full-time and is not able to be with the patient overnight. -Patient's CODE STATUS is DNR Allergies Allergy/AdvReac Type Severity Reaction Status Date / Time ciprofloxacin Allergy Mild ITCHY Verified 09/12/19 22:43 azithromycin Allergy Unknown Unknown Verified 09/12/19 22:43 Nitrate Analogues Allergy Unknown UNSURE; Verified 09/12/19 22:43 BUT PATIENT TAKES NITROSTAT PER ADMIT MED REC. nitrofurantoin Allergy Unknown UNSURE Verified 09/12/19 22:43 pneumococcal vaccine Allergy Unknown unk Verified 09/12/19 22:43 Influenza Virus Vaccines AdvReac Mild HIVES ON Verified 09/12/19 22:43 THE SITE Home Medications Home Medications Medication Instructions Recorded Confirmed Type albuterol sulfate [Ventolin HFA] 2 puff INHALATION QID PRN 12/28/17 09/12/19 History aspirin 81 mg PO QAM 12/28/17 09/12/19 History clopidogrel 75 mg PO QAM 12/28/17 09/12/19 History fluticasone propionate 2 spray INTRANASAL DAILY PRN 12/28/17 09/12/19 History folic acid 1 mg PO DAILY 12/28/17 09/12/19 History metoprolol succinate 12.5 mg PO QAM 12/28/17 09/12/19 History nitroglycerin 0.4 mg SUBLINGUAL DIRECTED PRN 12/28/17 09/12/19 History gabapentin 300 mg PO TID 05/09/19 09/12/19 History sennosides-docusate sodium 1 tabcap PO DAILY PRN #30 tab 05/13/19 09/12/19 Rx [Senokot-S] potassium chloride 20 meq PO QAM 06/18/19 09/12/19 History sertraline 25 mg PO DAILY 08/01/19 09/12/19 History atorvastatin [Lipitor] 20 mg PO DAILY 09/12/19 09/12/19 History ferrous sulfate 325 mg PO BID 09/12/19 09/12/19 History furosemide [Lasix] 40 mg PO DAILY 09/12/19 09/12/19 History hydrocodone-acetaminophen 1 tab PO Q6 PRN 09/12/19 09/12/19 History ipratropium-albuterol 3 ml INHALATION Q6H PRN 09/12/19 09/12/19 History pantoprazole [Protonix] 40 mg PO DAILY 09/12/19 09/12/19 History umeclidinium-vilanterol [Anoro 1 ea INHALATION DAILY 09/12/19 09/12/19 History Ellipta] Patient History Medical History Avascular necrosis (Chronic) CAD (coronary artery disease) (Chronic) Cardiac cath 2010-nonobstructive disease Carotid stenosis (Chronic) Chronic hip pain Chronic respiratory failure with hypoxia (Chronic) CKD (chronic kidney disease), stage III COPD (chronic obstructive pulmonary disease) (Chronic) CVA (cerebral vascular accident) (Chronic) Depression (Chronic) Diastolic CHF (Chronic) Dyslipidemia (Chronic) Hip pain, right (Chronic) HTN (hypertension) (Acute) Hypertension (Chronic) DAYNA (iron deficiency anemia) (Chronic) IPMN (intraductal papillary mucinous neoplasm) (Chronic) Lumbar back pain (Chronic) PAD (peripheral artery disease) (Chronic) S/P stenting of the right distal common and right external iliac arteries Pancreatic duct stricture (Chronic) S/P stent Pulmonary hypertension Recurrent pancreatitis (Chronic) Sleep apnea (Chronic) Tobacco use disorder (Chronic) Surgical History H/O ventral hernia repair (Chronic) History of appendectomy (Chronic) History of cholecystectomy (Chronic) History of hysterectomy (Chronic) Family History Mother Stroke Father Stroke Social History Smoking Status: Unknown if ever smoked Cigarettes Per Day: 20; Second Hand Exposure: No; Preferred Language: Erit[place]an Communication Ability: Effective Visual Impairment: No Limitations Inspector Required: No Beliefs That Will Affect Care: None marital status: / Current Living Situation: Alone Current Living Situation Comment: Caregivers 9a-5p daily x 40hrs/wk Feels Safe at Home: Yes Review of Systems Review of Systems: Patient denies fever, chills, chest pain, increased shortness of breath, or abdominal pain. Positive shortness of breath with exertion/ambulation Physical Exam Physical Exam: PE: Patient awake, alert and oriented to person place and time HEENT: EOMI, hearing within normal limits Respirations: Few mild crackles bilaterally, no wheezes. Patient on O2 at 2 L with sats of 96% CV: Regular rate, no lower extremity edema Abdomen: Soft, nontender Extremities: Full range of motion, generalized weakness Neuro: Alert and oriented-poor insight to her disease and her healthcare needs. PG Care Time/CCT Total # of Minutes Spent Total Time Spent with Patient: Total time spent 70 minutes with greater than 50% of the time at bedside discussing patient's goals of care, disease progression, and importance of compliance. Collaborated with attending physician and case management. Spoke with family at length by phone discussing current goals as well as discharge needs. Coding Level of Care Code 05917 Inpt Consult Level 3 Diagnoses Goals of care, counseling/discussion Z71.89 Acute on chronic respiratory failure with hypoxia and hypercapnia J96.21; J96.22 Altered mental status R41.82 Altered mental status type: unspecified Diastolic CHF I50.33 Heart failure chronicity: acute on chronic Time Spent (min) 70
--- NOTE | 2019-09-16 09:04 | Hospitalist Progress Note ---
Date of Service September 15, 2019 Assessment & Plan (1) Encephalopathy: Encephalopathy Multifactorial : progressive decline/deconditioning in a homehospice patient Poor p.o. intake, ARF on CKD Possible hypercapnic respiratory failure, hx chronic respiratory failure secondary to COPD/pulmonary hypertension on home O2 Possible UTI Home medications (neuropsychotropic/narcotic meds) Pt had a reported fever yesterday PM, and there was also small opacity found on CXR. I contacted Emilee yesterday to see if she wanted any treatment in case of possible infection. Pt's daughter states that she does not want any more treatment and wants to make sure pt does not have any IVs. This was extensively discussed within pt's family already and so she wants to make sure all providers are aware of that. chronic diastolic heart failure (EF 55 to 60%, TTE 2019) Patient clinically dry HTN, currently stable hx CAD/CVA/PVD as per records chronic anemia, hemoglobin better than baseline Hypokalemia secondary to poor p.o. intake Past tobacco abuse Comfort measures as per daughter request. Patient family not interested in additional testing/interventions other than medications for patient's comfort. Social service RE discharge planning (Patient family do not feel home hospice to be safe option for patient with her remaining time.) DVT prophylaxis. Not indicated with comfort measures DNR Patient's daughter, Ms. Cynthia Lopez, can be contacted at . Other daughter Nely is currently a pt in the hospital, pls do not contact. Admission and Anticipated Discharge Date Admission Date: September 13, 2019 Subjective Pt is sitting up in bed, in NAD, on NC. She is comfortable, has no complaints. Answers questions appropriately. Dr. Gonsalves from palliative to see the patient. Review of Systems Review of Systems: All systems reviewed & are unremarkable except as noted in HPI & below Physical Exam Physical Exam: GENERAL: Pt is sitting up in bed, in NAD, no respiratory distress HEENT: Pale palpebral conjunctivae, no ptosis, nasal cannula in place NECK : Supple, no tenderness CHEST : Decreased breath sounds, no tenderness HEART : RRR, no obvious murmurs ABDOMEN: Soft, nontender, nondistended EXTREMITIES : Chronic right hip tenderness, no LE swelling, no other conspicuous deformities noted SKIN: Pallor , warm NEUROLOGIC : Awake, answers most questions appropriately, no facial asymmetry, speech fluent, moves extremities spontaneously
--- NOTE | 2019-09-16 09:05 | Hospitalist Progress Note ---
Date of Service September 16, 2019 Assessment & Plan (1) Encephalopathy: Encephalopathy Multifactorial : progressive decline/deconditioning in a homehospice patient Poor p.o. intake, ARF on CKD Possible hypercapnic respiratory failure, hx chronic respiratory failure secondary to COPD/pulmonary hypertension on home O2 Possible UTI Home medications (neuropsychotropic/narcotic meds) Pt had a reported fever next day after admission, and there was also small opacity found on CXR. I contacted Emilee, patient's daughter, to see if she wanted any treatment in case of possible infection. Pt's daughter states that she does not want any more treatment and wants to make sure pt does not have any IVs. This was extensively discussed within pt's family already and so she wants to make sure all providers are aware of that. chronic diastolic heart failure (EF 55 to 60%, TTE 2019) Patient clinically dry HTN, currently stable hx CAD/CVA/PVD as per records chronic anemia, hemoglobin better than baseline Hypokalemia secondary to poor p.o. intake Past tobacco abuse Comfort measures as per daughter request. Patient's family not interested in additional testing/interventions other than medications for patient's comfort. Social service RE discharge planning (Patient's family does not feel home hospice to be safe option for patient with her remaining time.) DVT prophylaxis. Not indicated with comfort measures DNR Patient's daughter, Ms. Cynthia Lopez, can be contacted at . Other daughter, Nely, is currently a pt in the hospital, pls do not contact. Admission and Anticipated Discharge Date Admission Date: September 13, 2019 Subjective Patient is currently sitting up in bed, in no acute distress. However today she has been more confused. She cannot tell me where she is or what year it is. Yesterday she was very clear and answered all questions appropriately. I reminded her that her son-in-law was here visiting recently, and she seemed to remember that. Per nursing staff, patient was on the phone with her family all night and did not get much sleep. Palliative medicine following. Review of Systems Review of Systems: Patient has no complaints, however is little bit confused today Physical Exam Physical Exam: GENERAL: Pt is sitting up in bed, in NAD, no acute distress HEENT: Pale palpebral conjunctivae, no ptosis, nasal cannula in place NECK : Supple, no tenderness CHEST : Decreased breath sounds, no tenderness HEART : RRR, no obvious murmurs ABDOMEN: Soft, nontender, nondistended EXTREMITIES : Chronic right hip tenderness, no LE swelling SKIN: Pallor , warm NEUROLOGIC : Awake, answers some questions appropriately however is little more confused today, no facial asymmetry, speech fluent, moves extremities spontaneously
--- NOTE | 2019-09-17 18:02 | Hospitalist Progress Note ---
Date of Service September 17, 2019 Assessment & Plan (1) Encephalopathy: Encephalopathy Multifactorial : progressive decline/deconditioning in a homehospice patient Poor p.o. intake, ARF on CKD Possible hypercapnic respiratory failure, hx chronic respiratory failure secondary to COPD/pulmonary hypertension on home O2 No infection Home medications (neuropsychotropic/narcotic meds) Advised to eat and drink more and she is agreeable Chronic diastolic heart failure (EF 55 to 60%, TTE 2019) No signs of fluid overload HTN, currently stable hx CAD/CVA/PVD as per records chronic anemia, hemoglobin better than baseline Hypokalemia secondary to poor p.o. intake Past tobacco abuse Comfort measures as per daughter request. Patient's family not interested in additional testing/interventions other than medications for patient's comfort. Social service RE discharge planning (Patient's family does not feel home hospice to be safe option for patient with her remaining time.) Awaiting hospice placement in a facility DVT prophylaxis. Not indicated with comfort measures DNR Patient's daughter, Ms. Cynthia Lopez, can be contacted at . Other daughter, Nely, is currently a pt in the hospital, pls do not contact. Admission and Anticipated Discharge Date Admission Date: September 13, 2019 Subjective The patient was seen and examined in medical floor She remains stable without any acute symptoms Has severe anorexia and has not been eating or drinking Review of Systems Review of Systems: All systems reviewed and are unremarkable except as noted below Neurologic: + generalized weakness Alert and awake Physical Exam Physical Exam: Lying in bed comfortably Constitutional: + thin; no acute distress and not ill appearing Eyes: PERRL, conjunctivae normal, anicteric sclerae ENMT: external ear and nose normal, oropharynx normal Neck: trachea midline, no thyromegaly Respiratory: normal respiratory effort; no respiratory distress Auscultation: lungs clear to auscultation bilaterally Cardiovascular: Rate/Rhythm: regular rate and regular rhythm Heart Sounds: no murmur Gastrointestinal (Abdomen): Inspection/Auscultation: abdomen normal to inspection and normal bowel sounds Percussion/Palpation: abdomen soft; abdomen nontender Musculoskeletal: No acute arthritis involving any joints Neurologic: moves all extremities; no focal motor deficits Psychiatric: Insight: + limited insight Results & Data Results & Data ([facility]) Medications Administered Current Inpatient Medications Acetaminophen (Tylenol) 650 mg PO Q6H PRN PRN Reason: Fever Stop: 10/12/19 23:36 Last Admin: 09/13/19 18:42 Dose: 650 mg Documented by: Atropine Sulfate (Atropine Sulfate 1% Oph Soln) 4 drops SL Q1H PRN PRN Reason: Secretions or Pulm Congestion Stop: 10/13/19 02:22 Morphine Sulfate (Morphine Sulfate) 2 mg IV Q1H PRN PRN Reason: Pain Stop: 09/27/19 02:22 Ondansetron HCl (Zofran) 4 mg IV Q4H PRN PRN Reason: Nausea And Vomiting Stop: 10/13/19 02:22 Tramadol HCl (Ultram) 25 - 50 mg PO Q4H PRN PRN Reason: Pain Stop: 10/13/19 06:18 Last Admin: 09/14/19 22:02 Dose: 25 mg Documented by:
--- NOTE | 2019-09-18 16:57 | Hospitalist Progress Note ---
Date of Service September 18, 2019 Assessment & Plan (1) Encephalopathy: Encephalopathy Multifactorial : progressive decline/deconditioning in a homehospice patient Poor p.o. intake, ARF on CKD Possible hypercapnic respiratory failure, hx chronic respiratory failure secondary to COPD/pulmonary hypertension on home O2 No infection and no respiratory symptoms Home medications (neuropsychotropic/narcotic meds) Advised to eat and drink more and she is agreeable Remains stable and denies any distress Chronic diastolic heart failure (EF 55 to 60%, TTE 2019) No signs of fluid overload HTN, currently stable hx CAD/CVA/PVD as per records chronic anemia, hemoglobin better than baseline Hypokalemia secondary to poor p.o. intake Past tobacco abuse Comfort measures as per daughter request. Patient's family not interested in additional testing/interventions other than medications for patient's comfort. Social service RE discharge planning (Patient's family does not feel home hospice to be safe option for patient with her remaining time.) Awaiting hospice placement in a facility Likely discharge tomorrow DVT prophylaxis. Not indicated with comfort measures DNR Patient's daughter, Ms. Cynthia Lopez, can be contacted at . Other daughter, Nely, is currently a pt in the hospital, pls do not contact. Admission and Anticipated Discharge Date Admission Date: September 13, 2019 Subjective The patient was seen and examined in medical floor She remains stable without any acute symptoms Has severe anorexia and has not been eating or drinking 09/18/2019 The patient was seen and examined in the medical floor She remains weak but denies any other symptoms She has been trying to eat and drink more Review of Systems Review of Systems: All systems reviewed and are unremarkable except as noted below Neurologic: + generalized weakness Alert and awake Physical Exam Physical Exam: Sitting on a chair without any acute distress Constitutional: + thin; no acute distress and not ill appearing Eyes: PERRL, conjunctivae normal, anicteric sclerae ENMT: external ear and nose normal, oropharynx normal Neck: trachea midline, no thyromegaly Respiratory: normal respiratory effort; no respiratory distress Auscultation: lungs clear to auscultation bilaterally Cardiovascular: Rate/Rhythm: regular rate and regular rhythm Heart Sounds: no murmur Gastrointestinal (Abdomen): Inspection/Auscultation: abdomen normal to inspection and normal bowel sounds Percussion/Palpation: abdomen soft; abdomen nontender Musculoskeletal: No acute arthritis involving any joints Neurologic: moves all extremities; no focal motor deficits Psychiatric: Insight: + limited insight Results & Data Results & Data ([facility]) Medications Administered Current Inpatient Medications Acetaminophen (Tylenol) 650 mg PO Q6H PRN PRN Reason: Fever Stop: 10/12/19 23:36 Last Admin: 09/13/19 18:42 Dose: 650 mg Documented by: Atropine Sulfate (Atropine Sulfate 1% Oph Soln) 4 drops SL Q1H PRN PRN Reason: Secretions or Pulm Congestion Stop: 10/13/19 02:22 Morphine Sulfate (Morphine Sulfate) 2 mg IV Q1H PRN PRN Reason: Pain Stop: 09/27/19 02:22 Ondansetron HCl (Zofran) 4 mg IV Q4H PRN PRN Reason: Nausea And Vomiting Stop: 10/13/19 02:22 Tramadol HCl (Ultram) 25 - 50 mg PO Q4H PRN PRN Reason: Pain Stop: 10/13/19 06:18 Last Admin: 09/14/19 22:02 Dose: 25 mg Documented by:
--- NOTE | 2019-09-19 12:03 | Hospitalist Progress Note ---
Date of Service September 19, 2019 Assessment & Plan (1) Encephalopathy: Encephalopathy Multifactorial : progressive decline/deconditioning in a homehospice patient Poor p.o. intake, ARF on CKD Possible hypercapnic respiratory failure, hx chronic respiratory failure secondary to COPD/pulmonary hypertension on home O2 No infection and no respiratory symptoms Home medications (neuropsychotropic/narcotic meds) Advised to eat and drink more and she is agreeable No delirium Chronic diastolic heart failure (EF 55 to 60%, TTE 2019) No signs of fluid overload Totally asymptomatic HTN, currently stable hx CAD/CVA/PVD as per records chronic anemia, hemoglobin better than baseline Hypokalemia secondary to poor p.o. intake Past tobacco abuse Comfort measures as per daughter request. Patient's family not interested in additional testing/interventions other than medications for patient's comfort. Social service RE discharge planning (Patient's family does not feel home hospice to be safe option for patient with her remaining time.) Awaiting hospice placement in a facility Awaiting to be seen by the daughter this afternoon and decide the discharge destination DVT prophylaxis. Not indicated with comfort measures DNR Patient's daughter, Ms. Cynthia Lopez, can be contacted at . Other daughter, Nely, is currently a pt in the hospital, pls do not contact. Admission and Anticipated Discharge Date Admission Date: September 13, 2019 Subjective The patient was seen and examined in medical floor She remains stable without any acute symptoms Has severe anorexia and has not been eating or drinking 09/18/2019 The patient was seen and examined in the medical floor She remains weak but denies any other symptoms She has been trying to eat and drink more 09/19/2019 The patient was seen and examined in medical floor She remains stable without any acute delirium She has been eating and drinking well She denies any symptoms except weakness Review of Systems Review of Systems: All systems reviewed and are unremarkable except as noted below Neurologic: + generalized weakness Alert and awake Physical Exam Physical Exam: Lying in bed without any acute distress Constitutional: + thin; no acute distress and not ill appearing Eyes: PERRL, conjunctivae normal, anicteric sclerae ENMT: external ear and nose normal, oropharynx normal Neck: trachea midline, no thyromegaly Respiratory: normal respiratory effort; no respiratory distress Auscultation: lungs clear to auscultation bilaterally Cardiovascular: Rate/Rhythm: regular rate and regular rhythm Heart Sounds: no murmur Gastrointestinal (Abdomen): Inspection/Auscultation: abdomen normal to inspection and normal bowel sounds Percussion/Palpation: abdomen soft; abdomen nontender Musculoskeletal: No acute arthritis involving any of the joints Neurologic: moves all extremities; no focal motor deficits Alert, awake and oriented. Generally weak, no acute confusion Psychiatric: Insight: + limited insight Results & Data Results & Data ([facility]) Medications Administered Current Inpatient Medications Acetaminophen (Tylenol) 650 mg PO Q6H PRN PRN Reason: Fever Stop: 10/12/19 23:36 Last Admin: 09/13/19 18:42 Dose: 650 mg Documented by: Atropine Sulfate (Atropine Sulfate 1% Oph Soln) 4 drops SL Q1H PRN PRN Reason: Secretions or Pulm Congestion Stop: 10/13/19 02:22 Morphine Sulfate (Morphine Sulfate) 2 mg IV Q1H PRN PRN Reason: Pain Stop: 09/27/19 02:22 Ondansetron HCl (Zofran) 4 mg IV Q4H PRN PRN Reason: Nausea And Vomiting Stop: 10/13/19 02:22 Tramadol HCl (Ultram) 25 - 50 mg PO Q4H PRN PRN Reason: Pain Stop: 10/13/19 06:18 Last Admin: 09/14/19 22:02 Dose: 25 mg Documented by:
[2019-09-19] MEDS: TRAMADOL HCL 50 MG TABLET PO PRN (22:14)
[2019-09-20] MEDS: TRAMADOL HCL 50 MG TABLET PO PRN ×3 (02:26→22:49)
[2019-09-20] MEDS ORDERED: METOPROLOL TARTRATE 25 MG TAB PO STA (15:56)
--- NOTE | 2019-09-20 15:59 | Hospitalist Progress Note ---
Date of Service September 20, 2019 Assessment & Plan (1) Encephalopathy: Encephalopathy Multifactorial : progressive decline/deconditioning in a homehospice patient Poor p.o. intake, ARF on CKD Possible hypercapnic respiratory failure, hx chronic respiratory failure secondary to COPD/pulmonary hypertension on home O2 No infection and no respiratory symptoms Home medications (neuropsychotropic/narcotic meds) Advised to eat and drink more and she is agreeable No delirium Chronic diastolic heart failure (EF 55 to 60%, TTE 2019) No signs of fluid overload Totally asymptomatic HTN Noted to be high this afternoon We will try Lopressor 12.5 mg twice daily hx CAD/CVA/PVD as per records chronic anemia, hemoglobin better than baseline Hypokalemia secondary to poor p.o. intake Past tobacco abuse Comfort measures as per daughter request. Patient's family not interested in additional testing/interventions other than medications for patient's comfort. Social service RE discharge planning (Patient's family does not feel home hospice to be safe option for patient with her remaining time.) Awaiting hospice placement in a facility Awaiting to be seen by the daughter this afternoon and decide the discharge destination DVT prophylaxis. Not indicated with comfort measures DNR Patient's daughter, Ms. Cynthia Lopez, can be contacted at . Other daughter, Nely, is currently a pt in the hospital, pls do not contact. Admission and Anticipated Discharge Date Admission Date: September 13, 2019 Subjective The patient was seen and examined in medical floor She remains stable without any acute symptoms Has severe anorexia and has not been eating or drinking 09/18/2019 The patient was seen and examined in the medical floor She remains weak but denies any other symptoms She has been trying to eat and drink more 09/19/2019 The patient was seen and examined in medical floor She remains stable without any acute delirium She has been eating and drinking well She denies any symptoms except weakness 09/20/2019 The patient was seen and examined in medical floor She remains stable without any acute symptoms Remains lethargic Noted to have very high blood pressure this afternoon Review of Systems Review of Systems: All systems reviewed and are unremarkable except as noted below Neurologic: + generalized weakness Alert and awake Physical Exam Physical Exam: Lying in bed without any acute distress Constitutional: + thin; no acute distress and not ill appearing Eyes: PERRL, conjunctivae normal, anicteric sclerae ENMT: external ear and nose normal, oropharynx normal Neck: trachea midline, no thyromegaly Respiratory: normal respiratory effort; no respiratory distress Auscultation: lungs clear to auscultation bilaterally Cardiovascular: Rate/Rhythm: regular rate and regular rhythm Heart Sounds: no murmur Gastrointestinal (Abdomen): Inspection/Auscultation: abdomen normal to inspection and normal bowel sounds Percussion/Palpation: abdomen soft; abdomen nontender Neurologic: moves all extremities; no focal motor deficits Psychiatric: Insight: + limited insight Results & Data Results & Data ([facility]) Vital Signs (Past 12 Hours) Vital Signs Temp Pulse Pulse Resp BP BP Pulse Ox 09/20/19 15:54 201/83 H 09/20/19 15:53 78 162/84 H 09/20/19 15:11 36.7 C 88 16 196/105 H 99 09/20/19 07:13 36.7 C 85 16 139/85 95 Medications Administered Current Inpatient Medications Acetaminophen (Tylenol) 650 mg PO Q6H PRN PRN Reason: Fever Stop: 10/12/19 23:36 Last Admin: 09/13/19 18:42 Dose: 650 mg Documented by: Atropine Sulfate (Atropine Sulfate 1% Oph Soln) 4 drops SL Q1H PRN PRN Reason: Secretions or Pulm Congestion Stop: 10/13/19 02:22 Metoprolol Tartrate (Lopressor) 12.5 mg PO BID AKSHAT Stop: 10/20/19 20:59 Metoprolol Tartrate (Lopressor) 12.5 mg PO NOW STA Stop: 09/20/19 15:57 Morphine Sulfate (Morphine Sulfate) 2 mg IV Q1H PRN PRN Reason: Pain Stop: 09/27/19 02:22 Ondansetron HCl (Zofran) 4 mg IV Q4H PRN PRN Reason: Nausea And Vomiting Stop: 10/13/19 02:22 Tramadol HCl (Ultram) 25 - 50 mg PO Q4H PRN PRN Reason: Pain Stop: 10/13/19 06:18 Last Admin: 09/20/19 09:06 Dose: 50 mg Documented by:
[2019-09-20] MEDS: METOPROLOL TARTRATE 25 MG TAB PO SCH (20:43)
[2019-09-21] MEDS: METOPROLOL TARTRATE 25 MG TAB PO SCH ×2 (07:33→21:35)
[2019-09-21] MEDS: TRAMADOL HCL 50 MG TABLET PO PRN (08:47)
--- NOTE | 2019-09-21 15:18 | Hospitalist Progress Note ---
Date of Service September 21, 2019 Assessment & Plan (1) Encephalopathy: Encephalopathy Multifactorial : progressive decline/deconditioning in a homehospice patient Poor p.o. intake, ARF on CKD Possible hypercapnic respiratory failure, hx chronic respiratory failure secondary to COPD/pulmonary hypertension on home O2 No infection and no respiratory symptoms Home medications (neuropsychotropic/narcotic meds) Advised to eat and drink more and she is agreeable No delirium Medically stable to be discharged on hospital We will talk with the daughter and finalize discharge tomorrow Chronic diastolic heart failure (EF 55 to 60%, TTE 2019) No signs of fluid overload Totally asymptomatic HTN Noted to be high this afternoon We will try Lopressor 12.5 mg twice daily hx CAD/CVA/PVD as per records chronic anemia, hemoglobin better than baseline Hypokalemia secondary to poor p.o. intake Past tobacco abuse Comfort measures as per daughter request. Patient's family not interested in additional testing/interventions other than medications for patient's comfort. Social service RE discharge planning (Patient's family does not feel home hospice to be safe option for patient with her remaining time.) Awaiting hospice placement in a facility Awaiting to be seen by the daughter this afternoon and decide the discharge destination DVT prophylaxis. Not indicated with comfort measures DNR Patient's daughter, Ms. Cynthia Lopez, can be contacted at . Other daughter, Nely, is currently a pt in the hospital, pls do not contact. Admission and Anticipated Discharge Date Admission Date: September 13, 2019 Subjective The patient was seen and examined in medical floor She remains stable without any acute symptoms Has severe anorexia and has not been eating or drinking 09/18/2019 The patient was seen and examined in the medical floor She remains weak but denies any other symptoms She has been trying to eat and drink more 09/19/2019 The patient was seen and examined in medical floor She remains stable without any acute delirium She has been eating and drinking well She denies any symptoms except weakness 09/20/2019 The patient was seen and examined in medical floor She remains stable without any acute symptoms Remains lethargic Noted to have very high blood pressure this afternoon 09/21/2019 The patient was seen and examined in medical floor She remains stable to be discharged from the hospital Awaiting placement/discharge home Review of Systems Review of Systems: All systems reviewed and are unremarkable except as noted below Neurologic: + generalized weakness Alert and awake Physical Exam Physical Exam: Lying in bed without any acute distress Constitutional: + thin; no acute distress and not ill appearing Eyes: PERRL, conjunctivae normal, anicteric sclerae ENMT: external ear and nose normal, oropharynx normal Neck: trachea midline, no thyromegaly Respiratory: normal respiratory effort; no respiratory distress Auscultation: lungs clear to auscultation bilaterally Cardiovascular: Rate/Rhythm: regular rate and regular rhythm Heart Sounds: no murmur Gastrointestinal (Abdomen): Inspection/Auscultation: abdomen normal to inspection and normal bowel sounds Percussion/Palpation: abdomen soft; abdomen nontender Neurologic: moves all extremities; no focal motor deficits Psychiatric: Insight: + limited insight Results & Data Results & Data ([facility]) Vital Signs (Past 12 Hours) Vital Signs Temp Pulse Resp BP Pulse Ox 09/21/19 08:00 36.4 C L 74 20 131/76 98
[2019-09-22] MEDS: TRAMADOL HCL 50 MG TABLET PO PRN (05:09)
[2019-09-22] MEDS: METOPROLOL TARTRATE 25 MG TAB PO SCH ×2 (08:32→20:41)
--- NOTE | 2019-09-22 15:07 | Hospitalist Progress Note ---
Date of Service September 22, 2019 Assessment & Plan (1) Encephalopathy: Encephalopathy Multifactorial : progressive decline/deconditioning in a homehospice patient Poor p.o. intake, ARF on CKD Possible hypercapnic respiratory failure, hx chronic respiratory failure secondary to COPD/pulmonary hypertension on home O2 No infection and no respiratory symptoms Home medications (neuropsychotropic/narcotic meds) Advised to eat and drink more and she is agreeable Still get confused at times without any behavioral abnormality Medically stable to be discharged on hospital Waiting to be discharged to a facility and seems to be she cannot return home due to forgetfulness/dementia Chronic diastolic heart failure (EF 55 to 60%, TTE 2019) No signs of fluid overload Totally asymptomatic HTN Noted to be high this afternoon We will try Lopressor 12.5 mg twice daily Blood pressure seems to be controlled hx CAD/CVA/PVD as per records chronic anemia, hemoglobin better than baseline Hypokalemia secondary to poor p.o. intake Past tobacco abuse Comfort measures as per daughter request. Patient's family not interested in additional testing/interventions other than medications for patient's comfort. Social service RE discharge planning (Patient's family does not feel home hospice to be safe option for patient with her remaining time.) Awaiting to be placed and possible transition to hospice care from the DVT prophylaxis. Not indicated with comfort measures DNR Patient's daughter, Ms. Cynthia Lopez, can be contacted at . Other daughter, Nely, is currently a pt in the hospital, pls do not contact. Admission and Anticipated Discharge Date Admission Date: September 13, 2019 Subjective The patient was seen and examined in medical floor She remains stable without any acute symptoms Has severe anorexia and has not been eating or drinking 09/18/2019 The patient was seen and examined in the medical floor She remains weak but denies any other symptoms She has been trying to eat and drink more 09/19/2019 The patient was seen and examined in medical floor She remains stable without any acute delirium She has been eating and drinking well She denies any symptoms except weakness 09/20/2019 The patient was seen and examined in medical floor She remains stable without any acute symptoms Remains lethargic Noted to have very high blood pressure this afternoon 09/21/2019 The patient was seen and examined in medical floor She remains stable to be discharged from the hospital Awaiting placement/discharge home 09/22/2019 Patient was seen and examined in medical floor She has occasional confusion but denies any symptoms during examination She has been eating and drinking reasonably Review of Systems Review of Systems: All systems reviewed and are unremarkable except as noted below Neurologic: + generalized weakness Alert and awake Physical Exam Physical Exam: Sitting on a chair without any acute distress Constitutional: + thin; no acute distress and not ill appearing Eyes: PERRL, conjunctivae normal, anicteric sclerae ENMT: external ear and nose normal, oropharynx normal Neck: trachea midline, no thyromegaly Respiratory: normal respiratory effort; no respiratory distress Auscultation: lungs clear to auscultation bilaterally Cardiovascular: Rate/Rhythm: regular rate and regular rhythm Heart Sounds: no murmur Gastrointestinal (Abdomen): Inspection/Auscultation: abdomen normal to inspection and normal bowel sounds Percussion/Palpation: abdomen soft; abdomen nontender Musculoskeletal: No acute arthritis in any joints Neurologic: moves all extremities; no focal motor deficits Psychiatric: Affect: + depressed affect Insight: + poor insight Results & Data Results & Data ([facility]) Vital Signs (Past 12 Hours) Vital Signs Temp Pulse Resp BP Pulse Ox 09/22/19 14:17 36.7 C 69 16 112/70 97
[2019-09-22] MEDS ORDERED: MAGNESIUM HYDROXIDE SUSP 30 ML UDC PO ONE (17:04)
[2019-09-22] MEDS: POLYETHYLENE (MIRALAX) 17 GM PACK PO SCH (18:38)
[2019-09-23] MEDS: TRAMADOL HCL 50 MG TABLET PO PRN ×2 (01:39→19:53)
[2019-09-23] MEDS: METOPROLOL TARTRATE 25 MG TAB PO SCH ×2 (07:37→21:08)
[2019-09-23 08:31] LABS: Basophils # (auto) 0.03 K/uL (0-0.2); Basophils % (auto) 0.3 %; Eosinophils # (auto) 0.22 K/uL (0-0.5); Eosinophils % (auto) 2.2 %; Hematocrit (blood only) 34.2 % (37-47); Hemoglobin 11.2 g/dL (12.0-16.0); Immature Granulocytes # (auto) 0.03 K/uL (0.00-0.02); Immature Granulocytes % (auto) 0.3 %; Lymphocytes # (auto) 0.77 K/uL (1.2-3.4); Lymphocytes % (auto) 7.7 %; Mean Corpuscular Hemoglobin 29.8 pg (25-34); Mean Corpuscular Hgb Conc 32.7 g/dL (32-36); Mean Platelet Volume 9.3 fL (7.4-10.4); Monocytes % (auto) 9.9 %; Neutrophils # (auto) 8.01 K/uL (1.4-6.5); Neutrophils % (auto) 79.6 %; Platelet Count 283 K/uL (130-400); RDW Coefficient of Variation 14.5 % (11.5-14.5); RDW Standard Deviation 47.6 fL (36.4-46.3); Red Blood Count 3.76 M/uL (4.2-5.4); White Blood Count 10.06 K/uL (4.8-10.8)
[2019-09-23 09:06] LABS: BUN Creatinine Ratio 17.6 (10-20); Calcium 8.5 mg/dl (8.5-10.1); Creatinine Clr Calc Pharmacy 33.2 ml/min; Est GFR (Non-African American) 45.7; Potassium 3.4 mmol/L (3.5-5.1)
[2019-09-23] MEDS: POLYETHYLENE (MIRALAX) 17 GM PACK PO SCH (10:10)
--- NOTE | 2019-09-23 13:28 | Hospitalist Progress Note ---
Date of Service September 23, 2019 Assessment & Plan (1) Encephalopathy: Encephalopathy Multifactorial : progressive decline/deconditioning in a homehospice patient Poor p.o. intake, ARF on CKD Possible hypercapnic respiratory failure, hx chronic respiratory failure secondary to COPD/pulmonary hypertension on home O2 No infection and no respiratory symptoms Home medications (neuropsychotropic/narcotic meds) Advised to eat and drink more and she is agreeable Still get confused at times without any behavioral abnormality Medically stable to be discharged on hospital Waiting to be discharged to a facility and seems to be she cannot return home due to forgetfulness/dementia Medically stable to be transferred Chronic diastolic heart failure (EF 55 to 60%, TTE 2019) No signs of fluid overload Totally asymptomatic HTN Noted to be high this afternoon We will try Lopressor 12.5 mg twice daily Blood pressure is well controlled hx CAD/CVA/PVD as per records chronic anemia, hemoglobin better than baseline Hypokalemia secondary to poor p.o. intake We will put regular doses of potassium Past tobacco abuse Comfort measures as per daughter request. Patient's family not interested in additional testing/interventions other than medications for patient's comfort. Social service RE discharge planning (Patient's family does not feel home hospice to be safe option for patient with her remaining time.) Awaiting to be placed and possible transition to hospice care from the DVT prophylaxis. Not indicated with comfort measures DNR Patient's daughter, Ms. Cynthia Lopez, can be contacted at . Other daughter, Nely, is currently a pt in the hospital, pls do not contact. Discussed with the daughter She will be transferred to [facility] probably tomorrow Admission and Anticipated Discharge Date Admission Date: September 13, 2019 Subjective The patient was seen and examined in medical floor She remains stable without any acute symptoms Has severe anorexia and has not been eating or drinking 09/18/2019 The patient was seen and examined in the medical floor She remains weak but denies any other symptoms She has been trying to eat and drink more 09/19/2019 The patient was seen and examined in medical floor She remains stable without any acute delirium She has been eating and drinking well She denies any symptoms except weakness 09/20/2019 The patient was seen and examined in medical floor She remains stable without any acute symptoms Remains lethargic Noted to have very high blood pressure this afternoon 09/21/2019 The patient was seen and examined in medical floor She remains stable to be discharged from the hospital Awaiting placement/discharge home 09/22/2019 Patient was seen and examined in medical floor She has occasional confusion but denies any symptoms during examination She has been eating and drinking reasonably 09/23/2019 The patient was seen and examined in medical floor She remains stable and has been eating and drinking reasonably Denies any symptoms Review of Systems Review of Systems: All systems reviewed and are unremarkable except as noted below Neurologic: + generalized weakness Alert and awake Physical Exam Physical Exam: Sitting on a chair without any acute distress Constitutional: + thin; no acute distress and not ill appearing Eyes: PERRL, conjunctivae normal, anicteric sclerae ENMT: external ear and nose normal, oropharynx normal Neck: trachea midline, no thyromegaly Respiratory: normal respiratory effort; no respiratory distress Auscultation: lungs clear to auscultation bilaterally Cardiovascular: Rate/Rhythm: regular rate and regular rhythm Heart Sounds: no murmur Extremities: no edema Gastrointestinal (Abdomen): Inspection/Auscultation: abdomen normal to inspection and normal bowel sounds; abdomen not distended Percussion/Palpation: abdomen soft; abdomen nontender Musculoskeletal: No acute pain in any joints Neurologic: moves all extremities; no focal motor deficits Alert, awake and oriented x3 Psychiatric: Affect: + depressed affect Insight: + poor insight Lymphatic: no cervical or axillary lymphadenopathy Results & Data Results & Data ([facility]) Vital Signs (Past 12 Hours) Vital Signs Temp Pulse Pulse Resp BP Pulse Ox 09/23/19 10:04 104/67 09/23/19 07:13 36.8 C 83 18 169/90 H 98 09/23/19 04:51 75 18 138/72 96
[2019-09-23] MEDS: POTASSIUM CHLORIDE 20 MEQ TABCR PO SCH (15:17)
[2019-09-24] MEDS: TRAMADOL HCL 50 MG TABLET PO PRN (01:00)
[2019-09-24] MEDS: POLYETHYLENE (MIRALAX) 17 GM PACK PO SCH (08:37)
[2019-09-24] MEDS: POTASSIUM CHLORIDE 20 MEQ TABCR PO SCH ×2 (08:37→08:43)
[2019-09-24] MEDS: METOPROLOL TARTRATE 25 MG TAB PO SCH ×2 (08:38→20:15)
--- NOTE | 2019-09-24 18:22 | Hospitalist Progress Note ---
Date of Service September 24, 2019 Assessment & Plan (1) Encephalopathy: Encephalopathy Multifactorial : Possible hypercapnic respiratory failure, ARF Was initially on comfort measures and later recovered Urine Cx: Negative Mental status back to baseline H/O COPD Chronic respiratory failure Pulmonary hypertension on home oxygen Past tobacco abuse CXR:Interstitial pulmonary edema. Small left pleural effusion with mild left basilar opacity. No signs of COPD exacerbation Continue home meds Chronic diastolic heart failure (EF 55 to 60%, TTE 2019) Resume home diuretics Monitor volume status HTN BP variable Continue Metoprolol H/O CAD/CVA/PVD as per records chronic Anemia Continue aspirin, statin, Plavix, metoprolol Hypokalemia secondary to poor p.o. intake Monitor and replete electrolytes as needed DVT Px: SCDs Code Status DNR/DNI Disposition Patient's daughter, Ms. Cynthia Lopez, can be contacted at . Other daughter, Nely, is currently a pt in the hospital, pls do not contact. Waiting for placement Admission and Anticipated Discharge Date Admission Date: September 13, 2019 Subjective Patient is seen and examined at bedside States feeling well today Sitting in chair comfortably this morning during my exam Denies any chest pain, shortness of breath, dizziness, nausea, abdominal pain Waiting for placement Review of Systems Review of Systems: All systems reviewed & are unremarkable except as noted in HPI & below Physical Exam Physical Exam: Physical Exam: Vitals signs as noted above General Appearance:Thin, Frail, No apparent distress Head: normocephalic, Atraumatic Eyes: normal inspection, EOMI Neck: supple, Trachea midline Respiratory/Chest: Normal breath sounds, CTA, No accessory muscle use Cardiovascular: S1, S2, + murmur Abdomen/GI:Soft, Non tender, Bowel sounds present Extremities/Musculoskelatal:normal inspection, B/L LE edema Neurologic/Psych:grossly no focal neurological deficits Skin: normal color, warm Results & Data Results & Data ([facility]) Vital Signs (Past 12 Hours) Vital Signs Temp Pulse Resp BP Pulse Ox 09/24/19 15:21 37.1 C 73 18 115/73 96 09/24/19 08:36 78 18 94
[2019-09-25 08:37] LABS: BUN Creatinine Ratio 17.4 (10-20); Calcium 8.7 mg/dl (8.5-10.1); Creatinine Clr Calc Pharmacy 31.8 ml/min; Est GFR (African American) 50.3; Est GFR (Non-African American) 43.4; Magnesium 2.4 mg/dl (1.8-2.4); Potassium 4.7 mmol/L (3.5-5.1)
[2019-09-25] MEDS ORDERED: FUROSEMIDE 40 MG TAB PO SCH (09:00)
[2019-09-25] MEDS ORDERED: CLOPIDOGREL BISULFATE 75 MG TAB PO SCH (09:00)
[2019-09-25] MEDS ORDERED: ASPIRIN 81 MG ECTAB PO SCH (09:00)
[2019-09-25] MEDS ORDERED: SERTRALINE HCL 50 MG TABLET PO SCH (09:00)
[2019-09-25] MEDS ORDERED: UMECLIDINIUM/VILANTEROL 62.5/25MCG 7 PUFFS/INHALER INH SCH (09:00)
[2019-09-25] MEDS ORDERED: ATORVASTATIN 20 MG TAB PO SCH (09:00)
[2019-09-25] MEDS ORDERED: PANTOprazole 40 MG TAB PO SCH (09:00)
[2019-09-25] MEDS: POTASSIUM CHLORIDE 20 MEQ TABCR PO SCH (09:44)
[2019-09-25] MEDS: POLYETHYLENE (MIRALAX) 17 GM PACK PO SCH (09:47)
[2019-09-25] MEDS: METOPROLOL TARTRATE 25 MG TAB PO SCH (09:49)
--- NOTE | 2019-09-25 12:09 | Hospitalist Progress Note ---
Date of Service September 25, 2019 Assessment & Plan (1) Encephalopathy: Encephalopathy Multifactorial : Possible hypercapnic respiratory failure, ARF Was initially on comfort measures and later recovered Urine Cx: Negative Mental status back to baseline Resolved H/O COPD Chronic respiratory failure Pulmonary hypertension on home oxygen Past tobacco abuse CXR:Interstitial pulmonary edema. Small left pleural effusion with mild left basilar opacity. No signs of COPD exacerbation Continue home meds Chronic diastolic heart failure (EF 55 to 60%, TTE 2019) Resume home diuretics Monitor volume status HTN BP stable Continue Metoprolol H/O CAD/CVA/PVD as per records chronic Anemia Continue aspirin, statin, Plavix, metoprolol Hypokalemia secondary to poor p.o. intake Monitor and replete electrolytes as needed DVT Px: SCDs Code Status DNR/DNI Disposition Patient's daughter, Ms. Cynthia Lopez, can be contacted at . Other daughter, Nely, is currently a pt in the hospital, pls do not contact. Plan to discharge to rehab facility today Admission and Anticipated Discharge Date Admission Date: September 13, 2019 Subjective Patient is seen and examined at bedside Sitting in chair having food comfortably No new complaints Plan to be discharged to rehab facility today Denies any chest pain, shortness of breath, dizziness, nausea, abdominal pain Review of Systems Review of Systems: All systems reviewed & are unremarkable except as noted in HPI & below Physical Exam Physical Exam: Physical Exam: Vitals signs as noted above General Appearance:Thin, Frail, No apparent distress Head: normocephalic, Atraumatic Eyes: normal inspection, EOMI Neck: supple, Trachea midline Respiratory/Chest: Normal breath sounds, CTA, No accessory muscle use Cardiovascular: S1, S2, + murmur Abdomen/GI:Soft, Non tender, Bowel sounds present Extremities/Musculoskelatal:normal inspection, B/L LE edema Neurologic/Psych:grossly no focal neurological deficits Skin: normal color, warm Results & Data Results & Data ([facility]) Vital Signs (Past 12 Hours) Vital Signs Temp Pulse Pulse Resp BP BP Pulse Ox 09/25/19 11:28 36.7 C 75 58 L 16 134/84 130/77 98 09/25/19 09:49 58 L 09/25/19 07:44 36.7 C 66 16 130/77 98 Laboratory Results BMP 09/25/19 07:30 Sodium 134 L Potassium 4.7 D Chloride 101 Carbon Dioxide 27 BUN 21 H Creatinine 1.21 H Glucose 104 H Calcium 8.7
--- NOTE | 2019-09-25 12:13 | Discharge Summary ---
Date of Service September 25, 2019 Admission HPI Per Admitting Provider History obtained from patient, family, and records. Limited history from patient secondary to obtunded state. Medical history significant for chronic diastolic heart failure (EF 55 to 60%, TTE 2019), chronic respiratory failure secondary to COPD/pulmonary hypertension on home O2, past tobacco abuse, HTN, hx CAD/PVD/CVA as per records, chronic anemia (baseline hemoglobin 8-9), history of ESBL E. coli as per records, history of chronic pancreatitis as per records, chronic hip pain secondary to avascular necrosis on narcotics. Last confinement July 2019 respiratory failure secondary to decompensated CHF. Found to have hypercapnic respiratory failure, respiratory acidosis from COPD. BiPAP trial during confinement. Palliative care consulted after patient expressed desire to avoid further invasive medical procedures. CODE STATUS de-escalated to DNR. Possible transition to home hospice on discharge as per palliative care note. Patient discharged on diuretic medications and BiPAP machine recommendations. Home hospice enrollment shortly after hospital discharge. Patient stopped taking cardiac medications a few weeks ago as per daughter. Would not wear a mask. Patient not eating as much as per caregiver. Increasing confusion noted by family this week. Family worried about patient safety at home being alone for some hours from time to time. Family requested for patient to be brought to ER for possible placement. Patient denies chest pain, S OB, cough, headache, abdominal pain, diarrhea, dysuria symptoms. MEDICAL HISTORY: SURGERIES: Appendectomy, hysterectomy, cholecystectomy, hernia repair, cystoscopy FAMILY HISTORY: Lung cancer and heart disease. PERSONAL AND SOCIAL HISTORY: Past tobacco abuse. No chronic intake of alcoholic beverages. 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 Admission Exam Per Admitting Provider Physical Exam Physical Exam: GENERAL: Obtunded, no respiratory distress SKIN: Pallor , warm HEENT: Pale palpebral conjunctivae, no ptosis, dry buccal mucosa, nasal cannula in place NECK : Supple, no tenderness CHEST : Decreased breath sounds, no tenderness HEART : RRR, no obvious murmurs ABDOMEN: Soft, nontender EXTREMITIES : Chronic right hip tenderness, no LE swelling, no other conspicuous deformities noted NEUROLOGIC : Coherent, obtunded, no facial asymmetry, no other gross focality Principal Diagnosis Acute hypercapnic respiratory failure Acute kidney injury Encephalopathy Discharge Data Allergies Allergy/AdvReac Type Severity Reaction Status Date / Time ciprofloxacin Allergy Mild ITCHY Verified 09/12/19 22:43 azithromycin Allergy Unknown Unknown Verified 09/12/19 22:43 Nitrate Analogues Allergy Unknown UNSURE; Verified 09/12/19 22:43 BUT PATIENT TAKES NITROSTAT PER ADMIT MED REC. nitrofurantoin Allergy Unknown UNSURE Verified 09/12/19 22:43 pneumococcal vaccine Allergy Unknown unk Verified 09/12/19 22:43 Influenza Virus Vaccines AdvReac Mild HIVES ON Verified 09/12/19 22:43 THE SITE Consultations 09/13/19 00:39 ED Decision to Admit Stat 09/13/19 02:23 Consult Case Management - Discharge Planning Routine Consult Palliative Care Routine Procedures Performed CXR:Interstitial pulmonary edema. Small left pleural effusion with mild left basilar opacity. Hospital Course (1) Encephalopathy: Encephalopathy Multifactorial : Likely Metabolic encephalopathy in the setting of possible hypercapnic resp failure and acute renal failure, treated and improved Was initially on comfort measures and later recovered Urine Cx: Negative Mental status back to baseline Resolved H/O COPD Chronic respiratory failure Pulmonary hypertension on home oxygen Past tobacco abuse CXR:Interstitial pulmonary edema. Small left pleural effusion with mild left basilar opacity. No signs of COPD exacerbation Continue home meds Chronic diastolic heart failure (EF 55 to 60%, TTE 2019) Resume home diuretics Monitor volume status HTN BP stable Continue Metoprolol H/O CAD/CVA/PVD as per records chronic Anemia Continue aspirin, statin, Plavix, metoprolol Hypokalemia secondary to poor p.o. intake Monitor and replete electrolytes as needed DVT Px: SCDs Code Status DNR/DNI Disposition Patient's daughter, Ms. Cynthia Lopez, can be contacted at . Other daughter, Nely, is currently a pt in the hospital, pls do not contact. Plan to discharge to rehab facility today Total Time Total Time Spent Total Time Spent (In Minutes): 38 minutes Discharge Plan Discharge Items Patient Disposition: Transfer Custodial Fac Reason For Visit: CONFUSION, COMFORT CARE Discharge Diagnosis: Acute hypercapnic respiratory failure Acute kidney injury Encephalopathy Activity: Resume your previous activity Exercise/Sports: Gradually increase as tolerated Non-emergency contact: Primary Care Provider Follow-up/Referrals: Lena Quintanilla DO [Primary Care Provider] - Diet: Heart Healthy Addtl Attending Provider Instructions: Follow-up with your primary care physician Dr. Lena Llamas in 1 week upon discharge from rehab facility. Seek immediate medical attention if your symptoms reoccur or worsen Pending Studies at Discharge: No Stand-Alone Forms: [facility] Skilled Items Patient informed of condition?: Yes DNR: Yes Discharge Level of Care: Skilled Communicable Disease: No Discharge Prognosis: Stable Lines: None Urinary Catheter: No Medications and DC Order Prescriptions: Continued clopidogrel 75 mg tablet 75 mg PO QAM RF: 0 aspirin 81 mg Tablet,Delayed Release (Dr/Ec) 81 mg PO QAM RF: 0 nitroglycerin 0.4 mg tablet, sublingual 0.4 mg Sublingual DIRECTED PRN (Reason: Chest Pain) RF: 0 folic acid 1 mg Tablet 1 mg PO DAILY RF: 0 metoprolol succinate 25 mg tablet extended release 24 hr 12.5 mg PO QAM RF: 0 albuterol sulfate [Ventolin HFA] 90 mcg/actuation Hfa Aerosol Inhaler 2 puff INHALATION QID PRN (Reason: Shortness Of Breath Or Wheezing) RF: 0 fluticasone propionate 50 mcg/actuation [place],Suspension 2 spray INTRANASAL DAILY PRN (Reason: Nasal Congestion) RF: 0 gabapentin 300 mg capsule 300 mg PO TID RF: 0 sennosides-docusate sodium [Senokot-S] 8.6-50 mg tablet 1 tabcap PO DAILY PRN (Reason: constipation) Qty: 30 RF: 0 sertraline 25 mg tablet 25 mg PO DAILY RF: 0 potassium chloride 20 mEq tablet,ER particles/crystals 20 meq PO QAM RF: 0 furosemide [Lasix] 40 mg tablet 40 mg PO DAILY RF: 0 atorvastatin [Lipitor] 20 mg tablet 20 mg PO DAILY RF: 0 ipratropium-albuterol 0.5 mg-3 mg(2.5 mg base)/3 mL Solution For Nebulization 3 ml INHALATION Q6H PRN (Reason: Shortness Of Breath) RF: 0 pantoprazole [Protonix] 40 mg tablet,delayed release (DR/EC) 40 mg PO DAILY RF: 0 ferrous sulfate 325 mg (65 mg iron) Tablet 325 mg PO BID RF: 0 Anoro Ellipta 62.5-25 mcg/actuation blister with device 1 ea INHALATION DAILY RF: 0 Discontinued hydrocodone-acetaminophen 10-325 mg tablet 1 tab PO Q6 PRN (Reason: Pain) RF: 0 Discharge Orders: Discharge Order (Routine); Ordered 09/25/19 Ordered By: Garrick Myles Admission Data Admit Date/Time: 09/13/19 01:04 Attending Provider: Garrick Myles Admit Provider: Familia Huynh Primary Care Provider: Lena Quintanilla Other Providers: Faimlia Huynh ; Reema Gonsalves ; [facility] ; Dano Wolff Other Interventions: Discharge Summary Assessment (RN) Last Done: 09/25/19 11:28 DC Date/Time DO NOT enter until pt leaves facility: 09/25/19 13:53
== END 2019-09-25 13:53 | DRG 951 ==
LOC: ED 21:26 → 2N 09-13 01:04 → SUATTDRO 09-13 01:04 → 2N 09-13 01:47 → 3W 09-14 20:48